=== PATIENT | male | born 1960 | race African-American/Black ===

== ENCOUNTER 2018-04-24 11:31 | Inpatient (IN) | payer OTHER ==
[~2018-04-24] VITALS: Ht 180.3 cm; Wt 68.5 kg
--- NOTE | 2018-04-24 11:40 | NUR ---
ED Nurse Note: Pt was brought in to ER by ambulance from [facility] due to severe headache 12/07. per EMS, pt has had REES for a week but this morning it got worse and they gave pt oxycodone 5mg by 0900 but was not effective so they called ambulance. pt aao x1-2, calm and cooperative. skin clean and intact but Rt upper head scar noted and per sister at bedside, it is surgical incision from brain surgery few months ago. per EMS, pt fell 3 months ago no LOC or injury noted.
[2018-04-24] MEDS ORDERED: Morphine Sulfate 4mg/ml Inj (IV USE ONLY) IVP ONE ×2 (11:45→14:45)
--- NOTE | 2018-04-24 12:00 | NUR ---
ED Nurse Note: Pt left department in stable condition to CT scan. meciations given and ivf on.
[2018-04-24 12:11] VITALS: BP 116/78
[2018-04-24 12:18] LABS: BASOPHILS % (AUTO) 2.5 % (0.0-2.0); EOSINOPHILS % (AUTO) 13.6 % (0.0-3.0); HEMATOCRIT 40.9 % (42.0-52.0); HEMOGLOBIN 13.9 G/DL (14.2-18.0); LYMPHOCYTES % (AUTO) 25.4 % (20.0-45.0); MEAN CORPUSCULAR VOLUME 97 FL (80-99); MONOCYTES % (AUTO) 17.5 % (1.0-10.0); PLATELET COUNT 432 K/UL (150-450); RED CELL DISTRIBUTION WIDTH 11.4 % (11.6-14.8); WHITE BLOOD COUNT 5.4 K/UL (4.8-10.8)
[2018-04-24 12:19] LABS: ANION GAP 8 mmol/L (5-15); BLOOD UREA NITROGEN 9 mg/dL (7-18); CALCIUM 9.3 MG/DL (8.5-10.1); CARBON DIOXIDE 28 MMOL/L (21-32); CHLORIDE 104 MMOL/L (98-107); CREATININE 0.9 MG/DL (0.55-1.30); SODIUM 140 MMOL/L (136-145)
--- NOTE | 2018-04-24 12:29 | NUR ---
ED Nurse Note: pt came back from CT in stable condition.
[2018-04-24 12:33] LABS: ALANINE AMINOTRANSFERASE 150 U/L (12-78); ALBUMIN 3.3 G/DL (3.4-5.0); ALBUMIN/GLOBULIN RATIO 0.8 (1.0-2.7); ALKALINE PHOSPHATASE 707 U/L (46-116); ASPARTATE AMINO TRANSFERASE 101 U/L (15-37); BILIRUBIN,TOTAL 0.6 MG/DL (0.2-1.0); CKMB < 0.5 NG/ML (0.0-3.6); CREATINE KINASE 112 U/L (26-308)
--- NOTE | 2018-04-24 12:47 | Diagnostic Imaging Report ---
Indication: Presenting with headache. History of craniotomy 03/18/2018 Technique: Contiguous 5 mm thick transaxial imaging of the head obtained in a Siemens Sensation [address] scanner. Soft tissue and bone windows generated. Automatic Exposure Control was utilized. Total Dose length Product (DLP): 1368.[address] Dose Index Volume (CTDIvol): 70.38 mGy Comparison: none Findings: Bifrontal craniotomy noted. Small metallic plate over the anterior midline covering a 1.5 cm focus of craniectomy. Just deep to the flap, there is mixed attenuation extra-axial blood within the surgical bed having a transaxial thickness of about 6 to 7 mm at its maximum. There is also an area of rounded low attenuation measuring about 2 cm within the anterior cranial fossa associated with the anterior interhemispheric fissure. This is likely the area of resection. Correlate with the surgical history. There is likely some degree of mild residual edema within the frontal lobes bilaterally. The basal cisterns appear normal. The ventricles appear symmetric. There is no evidence of hydrocephalus or acute intracranial bleed. IMPRESSION: Postsurgical changes associated with relatively recent bifrontal craniotomy likely resection of a mass in the area of the interhemispheric fissure. 6 mm thick mixed attenuation extra-axial blood noted within the surgical bed. Please correlate with the operative report and comparison with prior studies is strongly recommended. The CT scanner at [facility] is accredited by the [employer] and the scans are performed using dose optimization techniques as appropriate to a performed exam including Automatic Exposure control.
[2018-04-24] MEDS ORDERED: PEPCID AC20 M2 PO (14:06)
[2018-04-24] MEDS ORDERED: DILANTIN100 MG ORAL (14:06)
[2018-04-24] MEDS ORDERED: ROXICODONE5 MG ORAL (14:06)
[2018-04-24] MEDS ORDERED: ZOFRAN4 MG ORAL (14:06)
[2018-04-24] MEDS ORDERED: AMLODIPINE BESY10 MG ORAL (14:06)
[2018-04-24] MEDS ORDERED: KEPPRA500 M4 ORAL (14:06)
[2018-04-24] MEDS ORDERED: HYDRALAZINE HCL25 M1 ORAL (14:06)
[2018-04-24] MEDS ORDERED: NICOTINE PATCH1 EAC5 TD (14:06)
[2018-04-24] MEDS ORDERED: BENADRYL25 MG ORAL (14:06)
--- NOTE | 2018-04-24 14:06 | NUR ---
report given to patience caldwell patient is to be transferd to room 419-1
--- NOTE | 2018-04-24 14:27 | Consultation ---
History of Present Illness General Date patient seen: Apr 24, 2018 Chief Complaint: Headache Present Illness HPI 57 year old male with hx of brain tumor, s/p craniotomy presented to ER with intractable headache. Allergies: Coded Allergies: No Known Allergies (Unverified , 04/24/18) Medication History Scheduled Amlodipine Besylate* (Amlodipine Besylate*), 10 MG ORAL DAILY, (Reported) Famotidine (Pepcid Ac), 20 MG PO DAILY, (Reported) Hydralazine Hcl* (Hydralazine Hcl*), 25 MG ORAL EVERY 8 HOURS, (Reported) Levetiracetam (Keppra), 500 MG ORAL EVERY 12 HOURS, (Reported) Phenytoin Sodium Extended* (Dilantin*), 100 MG ORAL THREE TIMES A DAY, (Reported ) Scheduled PRN Diphenhydramine Hcl* (Benadryl*), 25 MG ORAL Q6H PRN for Itching, (Reported) Ondansetron (Zofran), 4 MG ORAL Q8H PRN for Nausea & Vomiting, (Reported) Oxycodone HCl (Oxycodone HCl), 5 MG ORAL Q6HR PRN for For Pain, (Reported) Miscellaneous Medications Nicotine (Nicotine Patch), 1 EACH TD, (Reported) Patient History Healthcare decision maker Resuscitation status Advanced Directive on File Past Medical/Surgical History Past Medical/Surgical History: (1) History of craniotomy Review of Systems All Other Systems: negative except mentioned in HPI Physical Exam General Appearance: WD/WN, no apparent distress Lines, tubes and drains: peripheral, PICC HEENT: normocephalic, atraumatic Neck: non-tender, normal alignment Respiratory/Chest: chest wall non-tender, lungs clear Breasts: no masses Cardiovascular/Chest: normal peripheral pulses Abdomen: normal bowel sounds, non tender Last 24 Hour Vital Signs Date Time Temp Pulse Resp B/P (MAP) Pulse Ox O2 Delivery O2 Flow Rate FiO2 04/24/18 14:07 98.2 78 16 120/70 98 Room Air 04/24/18 12:22 98.4 04/24/18 12:11 98.4 79 18 116/78 98 Room Air 04/24/18 11:33 98.4 80 18 115/76 94 Room Air Laboratory Tests Test 04/24/18 12:05 White Blood Count 5.4 K/UL (4.8-10.8) Red Blood Count 4.20 M/UL (4.70-6.10) L Hemoglobin 13.9 G/DL (14.2-18.0) L Hematocrit 40.9 % (42.0-52.0) L Mean Corpuscular Volume 97 FL (80-99) Mean Corpuscular Hemoglobin 33.0 PG (27.0-31.0) H Mean Corpuscular Hemoglobin Concent 33.9 G/DL (32.0-36.0) Red Cell Distribution Width 11.4 % (11.6-14.8) L Platelet Count 432 K/UL (150-450) Mean Platelet Volume 5.0 FL (6.5-10.1) L Neutrophils (%) (Auto) 41.0 % (45.0-75.0) L Lymphocytes (%) (Auto) 25.4 % (20.0-45.0) Monocytes (%) (Auto) 17.5 % (1.0-10.0) H Eosinophils (%) (Auto) 13.6 % (0.0-3.0) H Basophils (%) (Auto) 2.5 % (0.0-2.0) H Sodium Level 140 MMOL/L (136-145) Potassium Level 4.0 MMOL/L (3.5-5.1) Chloride Level 104 MMOL/L (98-107) Carbon Dioxide Level 28 MMOL/L (21-32) Anion Gap 8 mmol/L (5-15) Blood Urea Nitrogen 9 mg/dL (7-18) Creatinine 0.9 MG/DL (0.55-1.30) Estimat Glomerular Filtration Rate > 60 mL/min (>60) Glucose Level 98 MG/DL (74-106) Calcium Level 9.3 MG/DL (8.5-10.1) Total Bilirubin 0.6 MG/DL (0.2-1.0) Aspartate Amino Transf (AST/SGOT) 101 U/L (15-37) H Alanine Aminotransferase (ALT/SGPT) 150 U/L (12-78) H Alkaline Phosphatase 707 U/L (46-116) H Total Creatine Kinase 112 U/L (26-308) Creatine Kinase MB < 0.5 NG/ML (0.0-3.6) Creatine Kinase MB Relative Index Troponin I 0.000 ng/mL (0.000-0.056) Total Protein 7.6 G/DL (6.4-8.2) Albumin 3.3 G/DL (3.4-5.0) L Globulin 4.3 g/dL Albumin/Globulin Ratio 0.8 (1.0-2.7) L Height (Feet): 5 Height (Inches): 11.00 Weight (Pounds): 180 Assessment/Plan Problem List: (1) History of craniotomy ICD Codes: Z98.890 - Other specified postprocedural states SNOMED: 98624364, 878100732 (2) Intractable pain ICD Codes: R52 - Pain, unspecified SNOMED: 23182694 (3) Head ache ICD Codes: R51 - Headache SNOMED: 78204229 (4) Brain tumor ICD Codes: D49.6 - Neoplasm of unspecified behavior of brain SNOMED: 254428508 Assessment/Plan symptomatic treatment neuro and pain management dvt prophylaxis Millicent Armas MD Apr 24, 2018 14:27
[2018-04-24 16:00] VITALS: BP 102/59
--- NOTE | 2018-04-24 16:15 | History and Physical Report ---
DATE OF ADMISSION: 04/24/2018 TIME SEEN: On 04/24/2018 at 2 p.m. CONSULTANTS: 1. Korey Parada M.D. 2. Millicent Armas M.D. 3. Jaylin Delarosa M.D. 4. Sean Bautista M.D. CHIEF COMPLAINT: Severe headache, weakness. BRIEF HISTORY: This is a 57-year-old male from [facility], who in February had brain surgery. The patient started experiencing about two days ago starting with severe headaches and weakness and he was getting worse and was sent to [place] last night or this morning for evaluation. Currently, slightly anxious, in the ER gurney and complaining of severe headache of 9/10 and awaiting a bed in the hospital. PAST MEDICAL HISTORY: Includes headache, possible seizure, and hypertension. PAST SURGICAL HISTORY: Recent brain surgery in February. ALLERGIES: Denies. SOCIAL HISTORY: Positive smoke. Positive alcohol. No intravenous drug abuse. FAMILY HISTORY: Noncontributory. PHYSICAL EXAMINATION: GENERAL: Anxious in bed, oriented x2, in no acute distress. VITAL SIGNS: Temperature is 98 degrees, pulse 78, respirations 16, and blood pressure 120/70. CARDIOVASCULAR: No murmur. LUNGS: Distant and clear. ABDOMEN: Bowel sounds positive. Nontender. Nondistended. EXTREMITIES: No cyanosis, clubbing, or edema. NEUROLOGIC: The patient moves all extremities. Slight weakness in extremities. LABORATORY AND DIAGNOSTIC DATA: Labs at this time show hemoglobin 13.9, otherwise CBC is normal. BMP shows AST 101, ALT 150, alkaline phosphatase 707. Troponin 0.00. Albumin 3.3. MEDICATIONS: Include morphine, Zofran, IV fluids. ASSESSMENT: Severe headache, status post surgery, hypertension, malnutrition, possible seizure history, weakness, and elevated LFT. PLAN: 1. Continue previous medications. 2. Pain control. 3. IV fluids. 4. Dietary followup. 5. CBC and BMP in the morning. 6. Dr. Kimball in addition to evaluate for elevated LFT. 7. We will continue to follow this patient. Neri Cat D.O. DR: Ivan JOB#: [id number] CC:
--- NOTE | 2018-04-24 16:31 | GI Initial Consult Note ---
History of Present Illness General Date patient seen: Apr 24, 2018 Time patient seen: 16:15 Reason for Hospitalization: Headache Referring physician: VISHNU DAVID Reason for Consultation: Abnormal LFTs Present Illness HPI This is a 57-year-old male currently a senior care resident from [facility] who presents with persistent headache for over approximately 1 week. The patient has history of a brain tumor surgery back in February 2018 at [facility]. Noted history of epilepsy, obesity, history of hematuria, GERD without esophagitis and tobacco use. GI consulted for transaminitis and elevated alkaline phosphatase. Labs reviewed; patient presents with normocytic anemia and elevated LFTs. Unknown history of endoscopically and colonoscopy at this time. Home Meds Reported Medications Ondansetron (Zofran) 4 Mg Tablet, 4 MG ORAL Q8H PRN for Nausea & Vomiting, #10 TAB 0 Refills 04/24/18 Diphenhydramine Hcl* (BENADRYL*) 25 Mg Capsule, 25 MG ORAL Q6H PRN for Itching, CAP 04/24/18 Oxycodone HCl (Oxycodone HCl) 5 Mg Tablet, 5 MG ORAL Q6HR PRN for For Pain, TAB 0 Refills 04/24/18 Phenytoin Sodium Extended* (DILANTIN*) 100 Mg Capsule, 100 MG ORAL THREE TIMES A DAY, #90 CAP 0 Refills 04/24/18 Nicotine (NICOTINE PATCH) 1 Each Patch.dysq, 1 EACH TD, PATCH 04/24/18 Levetiracetam (KEPPRA) 500 Mg Tablet, 500 MG ORAL EVERY 12 HOURS, #60 TAB 0 Refills 04/24/18 Hydralazine Hcl* (HYDRALAZINE HCL*) 25 Mg Tablet, 25 MG ORAL EVERY 8 HOURS, TAB 0 Refills 04/24/18 Famotidine (PEPCID AC) 20 Mg Tablet, 20 MG PO DAILY, TAB 04/24/18 Amlodipine Besylate* (AMLODIPINE BESYLATE*) 10 Mg Tablet, 10 MG ORAL DAILY, TAB 04/24/18 Med list reviewed/reconciled: Yes Allergies: Coded Allergies: No Known Allergies (Unverified , 04/24/18) Patient History History Provided By: Patient, Medical Record Social History: Denies: smoking, alcohol use, drug use, other Review of Systems All Other Systems: negative except mentioned in HPI Physical Exam Vital Signs Date Time Temp Pulse Resp B/P (MAP) Pulse Ox O2 Delivery O2 Flow Rate FiO2 04/24/18 11:33 98.4 80 18 115/76 94 Room Air Sp02 EP Interpretation: reviewed, normal Labs Laboratory Tests Test 04/24/18 12:00 04/24/18 12:05 Lipase 99 U/L (73-393) White Blood Count 5.4 K/UL (4.8-10.8) Red Blood Count 4.20 M/UL (4.70-6.10) L Hemoglobin 13.9 G/DL (14.2-18.0) L Hematocrit 40.9 % (42.0-52.0) L Mean Corpuscular Volume 97 FL (80-99) Mean Corpuscular Hemoglobin 33.0 PG (27.0-31.0) H Mean Corpuscular Hemoglobin Concent 33.9 G/DL (32.0-36.0) Red Cell Distribution Width 11.4 % (11.6-14.8) L Platelet Count 432 K/UL (150-450) Mean Platelet Volume 5.0 FL (6.5-10.1) L Neutrophils (%) (Auto) 41.0 % (45.0-75.0) L Lymphocytes (%) (Auto) 25.4 % (20.0-45.0) Monocytes (%) (Auto) 17.5 % (1.0-10.0) H Eosinophils (%) (Auto) 13.6 % (0.0-3.0) H Basophils (%) (Auto) 2.5 % (0.0-2.0) H Sodium Level 140 MMOL/L (136-145) Potassium Level 4.0 MMOL/L (3.5-5.1) Chloride Level 104 MMOL/L (98-107) Carbon Dioxide Level 28 MMOL/L (21-32) Anion Gap 8 mmol/L (5-15) Blood Urea Nitrogen 9 mg/dL (7-18) Creatinine 0.9 MG/DL (0.55-1.30) Estimat Glomerular Filtration Rate > 60 mL/min (>60) Glucose Level 98 MG/DL (74-106) Calcium Level 9.3 MG/DL (8.5-10.1) Total Bilirubin 0.6 MG/DL (0.2-1.0) Aspartate Amino Transf (AST/SGOT) 101 U/L (15-37) H Alanine Aminotransferase (ALT/SGPT) 150 U/L (12-78) H Alkaline Phosphatase 707 U/L (46-116) H Total Creatine Kinase 112 U/L (26-308) Creatine Kinase MB < 0.5 NG/ML (0.0-3.6) Creatine Kinase MB Relative Index Troponin I 0.000 ng/mL (0.000-0.056) Total Protein 7.6 G/DL (6.4-8.2) Albumin 3.3 G/DL (3.4-5.0) L Globulin 4.3 g/dL Albumin/Globulin Ratio 0.8 (1.0-2.7) L General Appearance: well appearing, no apparent distress, alert Head: normocephalic EENT: PERRL/EOMI, normal ENT inspection Neck: supple Respiratory: normal breath sounds, no respiratory distress Cardiovascular: normal rate Gastrointestinal: normal inspection, non tender, soft, normal bowel sounds, non -distended Rectal: deferred Genitourinary: deferred Musculoskeletal: normal inspection, back normal Neurologic: normal inspection, alert, oriented x3, responsive Psychiatric: normal inspection, judgement/insight normal, memory normal Skin: normal inspection, normal color, no rash, warm/dry, palpation normal, well hydrated Lymphatic: normal inspection, no adenopathy GI: Plan Problems: (1) Brain tumor (2) Transaminitis (3) Elevated alkaline phosphatase level (4) Anemia Plan Head CT reviewed lipase normal Obtain abdominal ultrasound, okay to advance diet after imaging study Hepatitis panel ordered anemia work up OB stool r/o GI bleed monitor H&H, prn transfusions bowel regime ppi fu labs, trend LFTs We will consider endoscopy colonoscopy pending workup Discussed with Dr. Kimball. Thank you for this patient referral, we will follow. The patient was seen and examined at bedside and all new and available data was reviewed in the patients chart. I agree with the above findings, impression and plan. (Patient seen earlier today. Signature stamp does not reflect patient encounter time.). - MD Nithya Fong,[facility] OFFSET PRINTER Apr 24, 2018 16:31
--- NOTE | 2018-04-24 16:47 | Diagnostic Imaging Report ---
Indication:Abdominal pain Technique: Grayscale and duplex Doppler imaging of the abdomen performed. Comparison: None Findings: The liver is unremarkable. The gallbladder is unremarkable. The demonstrated part of the pancreas, aorta and IVC show no abnormalities. Both kidneys appear unremarkable. The spleen is normal in size. There is no biliary ductal dilatation identified. Doppler evaluation of the main portal vein shows patency. There is no ascites. No hydronephrosis seen. CBD is 3 mm. Impression: No acute findings.
[2018-04-24] MEDS ORDERED: Zolpidem 5mg tab ORAL PRN (17:15)
[2018-04-24] MEDS ORDERED: LORazepam Inj 2mg/ml 1ml IV PRN (17:15)
[2018-04-24] MEDS ORDERED: Miralax 17gm pkt ORAL PRN (17:15)
[2018-04-24] MEDS ORDERED: Mylanta II UD 30ml ORAL PRN (17:15)
--- NOTE | 2018-04-24 17:51 | NUR ---
CASE MANAGEMENT: INITIAL REVIEW 04/24/2018 57 YO Torsten PENA FROM [facility] CONV CC: HEADACHE PMHx: BRAIN TUMOR SI:DEHYDRATION. INTRACTABLE PAIN. T 98.2 HR 78 RR 16 B/P 120/70 SATS 98% ON RA AST 101 ALT 150 ALP 707 IS: MORPHINE IV X1 ZOFRAN IV X1 NS BOLUS X1 CT HEAD (IMPRESSION: Postsurgical changes associated with relatively recent bifrontal craniotomy likely resection of a mass in the area of the interhemispheric fissure. 6 mm thick mixed attenuation extra-axial blood noted within the surgical bed. Please correlate with the operative report and comparison with prior studies is strongly recommended) PATIENT ADMITTED TO MED/SURG 04/24/2018 @ 1310 DCP: PATIENT TO BE DISCHARGED TO SNF ONCE MEDICALLY CLEARED. PLAN OF CARE: NEURO EVAL Addendum: 04/24/18 at 2004 by Mishel Guy CM INTERQUAL MET
[2018-04-24] MEDS: Phenytoin 100mg cap ORAL SCH (18:09)
--- NOTE | 2018-04-24 19:26 | NUR ---
HAND-OFF: Report given to [facility] GL[facility].
--- NOTE | 2018-04-24 19:30 | NUR ---
NURSE NOTES: patient received. patient in no acute distress at this time. patient complains of no pain at this time. patient awake and alert x4. IV intact and asymptomatic. call light with reach. bed alarm on. bed in lowest position and locked. Urinal at bedside. seizure precautions taken. rail of bed padded. will continue to monitor.
[2018-04-24 20:00] VITALS: BP 131/76
[2018-04-24] MEDS: HydrALAZINE 25mg tab ORAL SCH (21:06)
[2018-04-24] MEDS: Heparin 5000 units/ml inj SUBQ SCH (21:08)
[2018-04-24] MEDS: Morphine Sulfate 2mg/ml Inj(IV/IM USE ONLY) IVP PRN (22:41)
[2018-04-25] VITALS: BP 128/83
[2018-04-25 04:00] VITALS: BP 120/73
[2018-04-25] MEDS: Morphine Sulfate 2mg/ml Inj(IV/IM USE ONLY) IVP PRN ×3 (05:46→14:32)
[2018-04-25] MEDS: HydrALAZINE 25mg tab ORAL SCH ×3 (05:46→21:29)
--- NOTE | 2018-04-25 07:24 | NUR ---
HAND-OFF: Report given to meret. caldwell.
--- NOTE | 2018-04-25 07:33 | NUR ---
NURSE NOTES: Received patient from [facility] GL[facility], patient is sleeping in bed, no distress noted, bed is locked and in lowest position, call light within reach, will continue to monitor.
[2018-04-25 07:38] LABS: BASOPHILS % (AUTO) 1.2 % (0.0-2.0); EOSINOPHILS % (AUTO) 14.5 % (0.0-3.0); HEMATOCRIT 37.9 % (42.0-52.0); HEMOGLOBIN 12.8 G/DL (14.2-18.0); LYMPHOCYTES % (AUTO) 22.9 % (20.0-45.0); MEAN CORPUSCULAR VOLUME 98 FL (80-99); MONOCYTES % (AUTO) 18.1 % (1.0-10.0); NEUTROPHILS % (AUTO) 43.4 % (45.0-75.0); PLATELET COUNT 380 K/UL (150-450); RED BLOOD COUNT 3.87 M/UL (4.70-6.10); RED CELL DISTRIBUTION WIDTH 11.1 % (11.6-14.8); WHITE BLOOD COUNT 5.3 K/UL (4.8-10.8)
--- NOTE | 2018-04-25 07:52 | Emergency Room Report ---
History of Present Illness General Chief Complaint: Headache Source: Patient, Medical Record Present Illness HPI Patient presents with complaints of headache Patient is at a nursing facility reports that the patient has had recent brain tumor removal This was done at [facility] Denies any chest pain or shortness of breath denies any vomiting denies any back or flank pain Patient complains of frontal forehead discomfort denies any neck pain or photophobia Allergies: Coded Allergies: No Known Allergies (Unverified , 04/24/18) Patient History Past Medical History: see triage record Pertinent Family History: none Reviewed Nursing Documentation: PMH: Agreed; PSxH: Agreed Nursing Documentation-PMH Past Medical History: No History, Except For Hx Cardiac Problems: No Hx Cancer: No Hx Gastrointestinal Problems: No 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 Hx Seizures: Yes Hx Headaches: Yes - since childhood Hx Neurologic Surgery: Yes - 02/2018 for brain tumor Review of Systems All Other Systems: negative except mentioned in HPI Physical Exam Vital Signs Date Time Temp Pulse Resp B/P (MAP) Pulse Ox O2 Delivery O2 Flow Rate FiO2 04/24/18 11:33 98.4 80 18 115/76 94 Room Air Sp02 EP Interpretation: reviewed, normal General Appearance: well appearing, no apparent distress Head: atraumatic, other - Previous surgery Eyes: bilateral eye PERRL, bilateral eye EOMI ENT: hearing grossly normal, normal pharynx, TMs + canals normal, uvula midline Neck: full range of motion, supple, no meningismus, no bony tend Respiratory: lungs clear, normal breath sounds, no rhonchi, no respiratory distress, no retraction, no accessory muscle use Cardiovascular #1: normal peripheral pulses, regular rate, rhythm, no edema, no gallop, no JVD, no murmur Gastrointestinal: normal bowel sounds, non tender, soft, no mass, no organomegaly, non-distended, no guarding, no hernia, no pulsatile mass, no rebound Genitourinary: no CVA tenderness Musculoskeletal: other - Equal vibration engineer bilateral upper extremity Neurologic: oriented x3, responsive, sensory intact, other - Somewhat sluggish Psychiatric: mood/affect normal Skin: normal color, no rash, warm/dry, palpation normal Lymphatic: normal inspection, no adenopathy Medical Decision Making Diagnostic Impression: Primary Impression: INTERACTABLE HEADACHE Additional Impression: Brain tumor ER Course Patient is complex with multiple differentials and consideration CT head reveals some findings likely consistent with recent procedure Patient's blood work is at baseline levels requiring further pain medication Patient also showing some signs of dehydration and requires further inpatient care Labs Test 04/24/18 12:00 04/24/18 12:05 04/25/18 05:15 Lipase 99 U/L (73-393) White Blood Count 5.4 K/UL (4.8-10.8) 5.3 K/UL (4.8-10.8) Red Blood Count 4.20 M/UL (4.70-6.10) 3.87 M/UL (4.70-6.10) Hemoglobin 13.9 G/DL (14.2-18.0) 12.8 G/DL (14.2-18.0) Hematocrit 40.9 % (42.0-52.0) 37.9 % (42.0-52.0) Mean Corpuscular Volume 97 FL (80-99) 98 FL (80-99) Mean Corpuscular Hemoglobin 33.0 PG (27.0-31.0) 33.1 PG (27.0-31.0) Mean Corpuscular Hemoglobin Concent 33.9 G/DL (32.0-36.0) 33.9 G/DL (32.0-36.0) Red Cell Distribution Width 11.4 % (11.6-14.8) 11.1 % (11.6-14.8) Platelet Count 432 K/UL (150-450) 380 K/UL (150-450) Mean Platelet Volume 5.0 FL (6.5-10.1) 4.9 FL (6.5-10.1) Neutrophils (%) (Auto) 41.0 % (45.0-75.0) 43.4 % (45.0-75.0) Lymphocytes (%) (Auto) 25.4 % (20.0-45.0) 22.9 % (20.0-45.0) Monocytes (%) (Auto) 17.5 % (1.0-10.0) 18.1 % (1.0-10.0) Eosinophils (%) (Auto) 13.6 % (0.0-3.0) 14.5 % (0.0-3.0) Basophils (%) (Auto) 2.5 % (0.0-2.0) 1.2 % (0.0-2.0) Sodium Level 140 MMOL/L (136-145) Potassium Level 4.0 MMOL/L (3.5-5.1) Chloride Level 104 MMOL/L (98-107) Carbon Dioxide Level 28 MMOL/L (21-32) Anion Gap 8 mmol/L (5-15) Blood Urea Nitrogen 9 mg/dL (7-18) Creatinine 0.9 MG/DL (0.55-1.30) Estimat Glomerular Filtration Rate > 60 mL/min (>60) Glucose Level 98 MG/DL (74-106) Calcium Level 9.3 MG/DL (8.5-10.1) Total Bilirubin 0.6 MG/DL (0.2-1.0) Aspartate Amino Transf (AST/SGOT) 101 U/L (15-37) Alanine Aminotransferase (ALT/SGPT) 150 U/L (12-78) Alkaline Phosphatase 707 U/L (46-116) Total Creatine Kinase 112 U/L (26-308) Creatine Kinase MB < 0.5 NG/ML (0.0-3.6) Creatine Kinase MB Relative Index Troponin I 0.000 ng/mL (0.000-0.056) Total Protein 7.6 G/DL (6.4-8.2) Albumin 3.3 G/DL (3.4-5.0) Globulin 4.3 g/dL Albumin/Globulin Ratio 0.8 (1.0-2.7) Prothrombin Time 10.9 SEC (9.30-11.50) Prothromb Time International Ratio 1.0 (0.9-1.1) Activated Partial Thromboplast Time 31 SEC (23-33) Rhythm Strip Diag. Results EP Interpretation: yes Rate: 60 Rhythm: NSR, no PVC's, no ectopy CT/MRI/US Diagnostic Results CT/MRI/US Diagnostic Results : Impression CT head :IMPRESSION: Postsurgical changes associated with relatively recent bifrontal craniotomy likely resection of a mass in the area of the interhemispheric fissure. 6 mm thick mixed attenuation extra-axial blood noted within the surgical bed. Please correlate with the operative report and comparison with prior studies is strongly recommended. Last Vital Signs Date Time Temp Pulse Resp B/P (MAP) Pulse Ox O2 Delivery O2 Flow Rate FiO2 04/25/18 05:46 120/73 04/25/18 04:00 99.3 99 18 97 04/24/18 21:00 Room Air Status: improved Disposition: ADMITTED INPATIENT Condition: Serious Referrals: Neri Cat DO (PCP) Iram Rojas DO Apr 25, 2018 07:52
[2018-04-25 07:55] LABS: % IRON SATURATION 25 % (15-50); ALANINE AMINOTRANSFERASE 104 U/L (12-78); ALBUMIN 3.1 G/DL (3.4-5.0); ALBUMIN/GLOBULIN RATIO 0.8 (1.0-2.7); ALKALINE PHOSPHATASE 634 U/L (46-116); ANION GAP 13 mmol/L (5-15); ASPARTATE AMINO TRANSFERASE 46 U/L (15-37); BILIRUBIN,TOTAL 0.8 MG/DL (0.2-1.0); BLOOD UREA NITROGEN 9 mg/dL (7-18); CARBON DIOXIDE 24 MMOL/L (21-32); CHLORIDE 102 MMOL/L (98-107); CREATININE 0.9 MG/DL (0.55-1.30); FERRITIN 523 NG/ML (8-388); IRON 45 ug/dL (50-175); POTASSIUM 3.8 MMOL/L (3.5-5.1); SODIUM 138 MMOL/L (136-145); TOTAL IRON BINDING CAPACITY 179 ug/dL (250-450)
[2018-04-25 08:00] VITALS: BP 104/63
[2018-04-25] MEDS: Phenytoin 100mg cap ORAL SCH ×3 (09:52→17:59)
[2018-04-25] MEDS: Heparin 5000 units/ml inj SUBQ SCH ×2 (09:57→21:30)
[2018-04-25 12:00] VITALS: BP 117/86
--- NOTE | 2018-04-25 12:49 | NUR ---
REHAB MED PT NOTE CONSULT RECEIVED, LISA COMPLTED, PATIENT WILL BENEFIT FROM SKILLED PT DURING STAY FOR RETURN TO [facility]. RECOMMEND SNF AT [place]. PLAN OF CARE INITIATED. ROBSON MORALES PT DPT Addendum: 04/25/18 at 1249 by ROBSON MORALES PT Amended: Links added.
--- NOTE | 2018-04-25 13:02 | General Progress Note ---
Assessment/Plan Problem List: (1) Head ache ICD Codes: R51 - Headache SNOMED: 44322023 (2) Weak ICD Codes: R53.1 - Weakness SNOMED: 92560534 (3) HTN (hypertension) ICD Codes: I10 - Essential (primary) hypertension SNOMED: 46458275 (4) Malnutrition ICD Codes: E46 - Unspecified protein-calorie malnutrition SNOMED: 95640851 (5) Epilepsy ICD Codes: G40.909 - Epilepsy, unspecified, not intractable, without status epilepticus SNOMED: 64138772 (6) Intractable pain ICD Codes: R52 - Pain, unspecified SNOMED: 04172471 Status: unchanged Assessment/Plan pt siet pain control neuro psyc eval cbc bmp am Subjective Constitutional: Reports: weakness Allergies: Coded Allergies: No Known Allergies (Unverified , 04/24/18) All Systems: reviewed and negative except above Subjective sl confused, c/o russ Objective Last 24 Hour Vital Signs Date Time Temp Pulse Resp B/P (MAP) Pulse Ox O2 Delivery O2 Flow Rate FiO2 04/25/18 12:00 98.3 79 19 117/86 (96) 97 04/25/18 10:21 98.6 04/25/18 09:45 76 104/63 04/25/18 08:45 Room Air 04/25/18 08:00 98.6 76 18 104/63 (77) 95 04/25/18 05:46 120/73 04/25/18 04:00 99.3 99 18 120/73 (89) 97 04/25/18 00:00 99.5 95 19 128/83 (98) 99 04/24/18 21:06 102/59 04/24/18 21:00 Room Air 04/24/18 20:00 98.9 95 18 131/76 (94) 99 04/24/18 16:00 Room Air 04/24/18 16:00 98.2 85 18 102/59 (73) 99 04/24/18 14:07 98.2 78 16 120/70 98 Room Air Intake and Output 04/24/18 04/25/18 19:00 07:00 Intake Total 1060 ml 65 ml Balance 1060 ml 65 ml Intake Oral 60 ml 65 ml IV Total 1000 ml # Voids 3 Laboratory Tests 04/25/18 05:15: White Blood Count 5.3, Red Blood Count 3.87L, Hemoglobin 12.8L, Hematocrit 37.9L , Mean Corpuscular Volume 98, Mean Corpuscular Hemoglobin 33.1H, Mean Corpuscular Hemoglobin Concent 33.9, Red Cell Distribution Width 11.1L, Platelet Count 380, Mean Platelet Volume 4.9L, Neutrophils (%) (Auto) 43.4L, Lymphocytes (%) (Auto) 22.9, Monocytes (%) (Auto) 18.1H, Eosinophils (%) (Auto) 14.5H, Basophils (%) (Auto) 1.2, Reticulocyte Count [Pending], Prothrombin Time 10.9, Prothromb Time International Ratio 1.0, Activated Partial Thromboplast Time 31, Sodium Level 138, Potassium Level 3.8, Chloride Level 102, Carbon Dioxide Level 24, Anion Gap 13, Blood Urea Nitrogen 9, Creatinine 0.9, Estimat Glomerular Filtration Rate > 60, Glucose Level 79, Calcium Level 9.0, Iron Level 45L, Total Iron Binding Capacity 179L, Percent Iron Saturation 25, Unsaturated Iron Binding 134, Ferritin 523H, Total Bilirubin 0.8, Aspartate Amino Transf (AST/SGOT) 46H, Alanine Aminotransferase (ALT/SGPT) 104H, Alkaline Phosphatase 634H, Total Protein 7.2, Albumin 3.1L, Globulin 4.1, Albumin/ Globulin Ratio 0.8L, Carcinoembryonic Antigen [Pending], Vitamin B12 Level 1016H , Folate 5.8L, Thyroid Stimulating Hormone (TSH) 1.207, Free Thyroxine 0.77, Hepatitis A IgM Antibody [Pending], Hepatitis B Surface Antigen [Pending], Hepatitis B Core IgM Antibody [Pending], Hepatitis C Antibody [Pending] Height (Feet): 5 Height (Inches): 11.00 Weight (Pounds): 180 General Appearance: lethargic, confused EENT: normal ENT inspection Neck: normal alignment Cardiovascular: normal peripheral pulses, normal rate, regular rhythm Respiratory/Chest: chest wall non-tender, lungs clear, normal breath sounds Abdomen: normal bowel sounds, non tender, soft Extremities: normal inspection Edema: no edema noted Arm (L), no edema noted Arm (R), no edema noted Leg (L), no edema noted Leg (R), no edema noted Pedal (L), no edema noted Pedal (R), no edema noted Generalized Neurologic: motor weakness Skin: normal pigmentation, warm/dry Neri Cat DO Apr 25, 2018 13:02
--- NOTE | 2018-04-25 13:20 | GI Progress Note ---
Assessment/Plan Problems: (1) Weak ICD Codes: R53.1 - Weakness SNOMED: 29865613 (2) Malnutrition ICD Codes: E46 - Unspecified protein-calorie malnutrition SNOMED: 72599206 (3) Brain tumor ICD Codes: D49.6 - Neoplasm of unspecified behavior of brain SNOMED: 376423539 (4) Transaminitis ICD Codes: R74.0 - Nonspecific elevation of levels of transaminase and lactic acid dehydrogenase [LDH] SNOMED: 177517005, 909063431 (5) Anemia ICD Codes: D64.9 - Anemia, unspecified SNOMED: 140591299 (6) Intractable pain ICD Codes: R52 - Pain, unspecified SNOMED: 88522250 Status: stable Status Narrative Discussed with Dr. Kimball. Assessment/Plan Head CT reviewed lipase normal abdominal US reviewed, negative adv diet follow Hepatitis panel OB stool r/o GI bleed monitor H&H, prn transfusions bowel regime ppi fu labs, trend LFTs We will consider endoscopy colonoscopy pending workup The patient was seen and examined at bedside and all new and available data was reviewed in the patients chart. I agree with the above findings, impression and plan. (Patient seen earlier today. Signature stamp does not reflect patient encounter time.). - Barry Kimball MD Subjective Gastrointestinal/Abdominal: Reports: no symptoms Objective Last 24 Hour Vital Signs Date Time Temp Pulse Resp B/P (MAP) Pulse Ox O2 Delivery O2 Flow Rate FiO2 04/25/18 12:00 98.3 79 19 117/86 (96) 97 04/25/18 10:21 98.6 04/25/18 09:45 76 104/63 04/25/18 08:45 Room Air 04/25/18 08:00 98.6 76 18 104/63 (77) 95 04/25/18 05:46 120/73 04/25/18 04:00 99.3 99 18 120/73 (89) 97 04/25/18 00:00 99.5 95 19 128/83 (98) 99 04/24/18 21:06 102/59 04/24/18 21:00 Room Air 04/24/18 20:00 98.9 95 18 131/76 (94) 99 04/24/18 16:00 Room Air 04/24/18 16:00 98.2 85 18 102/59 (73) 99 04/24/18 14:07 98.2 78 16 120/70 98 Room Air Intake and Output 04/24/18 04/25/18 19:00 07:00 Intake Total 1060 ml 65 ml Balance 1060 ml 65 ml Intake Oral 60 ml 65 ml IV Total 1000 ml # Voids 3 Laboratory Tests Test 04/25/18 05:15 White Blood Count 5.3 K/UL (4.8-10.8) Red Blood Count 3.87 M/UL (4.70-6.10) L Hemoglobin 12.8 G/DL (14.2-18.0) L Hematocrit 37.9 % (42.0-52.0) L Mean Corpuscular Volume 98 FL (80-99) Mean Corpuscular Hemoglobin 33.1 PG (27.0-31.0) H Mean Corpuscular Hemoglobin Concent 33.9 G/DL (32.0-36.0) Red Cell Distribution Width 11.1 % (11.6-14.8) L Platelet Count 380 K/UL (150-450) Mean Platelet Volume 4.9 FL (6.5-10.1) L Neutrophils (%) (Auto) 43.4 % (45.0-75.0) L Lymphocytes (%) (Auto) 22.9 % (20.0-45.0) Monocytes (%) (Auto) 18.1 % (1.0-10.0) H Eosinophils (%) (Auto) 14.5 % (0.0-3.0) H Basophils (%) (Auto) 1.2 % (0.0-2.0) Reticulocyte Count Pending Prothrombin Time 10.9 SEC (9.30-11.50) Prothromb Time International Ratio 1.0 (0.9-1.1) Activated Partial Thromboplast Time 31 SEC (23-33) Sodium Level 138 MMOL/L (136-145) Potassium Level 3.8 MMOL/L (3.5-5.1) Chloride Level 102 MMOL/L (98-107) Carbon Dioxide Level 24 MMOL/L (21-32) Anion Gap 13 mmol/L (5-15) Blood Urea Nitrogen 9 mg/dL (7-18) Creatinine 0.9 MG/DL (0.55-1.30) Estimat Glomerular Filtration Rate > 60 mL/min (>60) Glucose Level 79 MG/DL (74-106) Calcium Level 9.0 MG/DL (8.5-10.1) Iron Level 45 ug/dL (50-175) L Total Iron Binding Capacity 179 ug/dL (250-450) L Percent Iron Saturation 25 % (15-50) Unsaturated Iron Binding 134 ug/dL (112-346) Ferritin 523 NG/ML (8-388) H Total Bilirubin 0.8 MG/DL (0.2-1.0) Aspartate Amino Transf (AST/SGOT) 46 U/L (15-37) H Alanine Aminotransferase (ALT/SGPT) 104 U/L (12-78) H Alkaline Phosphatase 634 U/L (46-116) H Total Protein 7.2 G/DL (6.4-8.2) Albumin 3.1 G/DL (3.4-5.0) L Globulin 4.1 g/dL Albumin/Globulin Ratio 0.8 (1.0-2.7) L Carcinoembryonic Antigen Pending Vitamin B12 Level 1016 PG/ML (193-986) H Folate 5.8 NG/ML (8.6-58.9) L Thyroid Stimulating Hormone (TSH) 1.207 uiU/mL (0.358-3.740) Free Thyroxine 0.77 NG/DL (0.76-1.46) Hepatitis A IgM Antibody Pending Hepatitis B Surface Antigen Pending Hepatitis B Core IgM Antibody Pending Hepatitis C Antibody Pending Height (Feet): 5 Height (Inches): 11.00 Weight (Pounds): 180 General Appearance: WD/WN, no apparent distress, alert Cardiovascular: normal rate Respiratory/Chest: normal breath sounds, no respiratory distress Abdominal Exam: normal bowel sounds, non tender, soft Extremities: non-tender Bhupendra Barriga NP Apr 25, 2018 13:20
--- NOTE | 2018-04-25 14:43 | Pulmonology Progress Note ---
Assessment/Plan Problems: (1) Epilepsy (2) Intractable pain (3) Brain tumor Assessment/Plan symptomatic treatment neuro evaluation pain management Subjective Allergies: Coded Allergies: No Known Allergies (Unverified , 04/24/18) Objective Last 24 Hour Vital Signs Date Time Temp Pulse Resp B/P (MAP) Pulse Ox O2 Delivery O2 Flow Rate FiO2 04/25/18 14:00 117/86 04/25/18 12:00 98.3 79 19 117/86 (96) 97 04/25/18 10:21 98.6 04/25/18 09:45 76 104/63 04/25/18 08:45 Room Air 04/25/18 08:00 98.6 76 18 104/63 (77) 95 04/25/18 05:46 120/73 04/25/18 04:00 99.3 99 18 120/73 (89) 97 04/25/18 00:00 99.5 95 19 128/83 (98) 99 04/24/18 21:06 102/59 04/24/18 21:00 Room Air 04/24/18 20:00 98.9 95 18 131/76 (94) 99 04/24/18 16:00 Room Air 04/24/18 16:00 98.2 85 18 102/59 (73) 99 Intake and Output 04/24/18 04/25/18 18:59 06:59 Intake Total 1060 ml 65 ml Balance 1060 ml 65 ml Intake Oral 60 ml 65 ml IV Total 1000 ml # Voids 3 Objective General Appearance: WD/WN HEENT: normocephalic Respiratory/Chest: chest wall non-tender, lungs clear, normal breath sounds Breasts: no masses Cardiovascular: normal peripheral pulses, normal rate Abdomen: normal bowel sounds, soft, non tender Extremities: no cyanosis Skin: no rash General Appearance: WD/WN Laboratory Tests 04/25/18 05:15: White Blood Count 5.3, Red Blood Count 3.87L, Hemoglobin 12.8L, Hematocrit 37.9L , Mean Corpuscular Volume 98, Mean Corpuscular Hemoglobin 33.1H, Mean Corpuscular Hemoglobin Concent 33.9, Red Cell Distribution Width 11.1L, Platelet Count 380, Mean Platelet Volume 4.9L, Neutrophils (%) (Auto) 43.4L, Lymphocytes (%) (Auto) 22.9, Monocytes (%) (Auto) 18.1H, Eosinophils (%) (Auto) 14.5H, Basophils (%) (Auto) 1.2, Reticulocyte Count 0.8, Prothrombin Time 10.9, Prothromb Time International Ratio 1.0, Activated Partial Thromboplast Time 31, Sodium Level 138, Potassium Level 3.8, Chloride Level 102, Carbon Dioxide Level 24, Anion Gap 13, Blood Urea Nitrogen 9, Creatinine 0.9, Estimat Glomerular Filtration Rate > 60, Glucose Level 79, Calcium Level 9.0, Iron Level 45L, Total Iron Binding Capacity 179L, Percent Iron Saturation 25, Unsaturated Iron Binding 134, Ferritin 523H, Total Bilirubin 0.8, Aspartate Amino Transf (AST/ SGOT) 46H, Alanine Aminotransferase (ALT/SGPT) 104H, Alkaline Phosphatase 634H, Total Protein 7.2, Albumin 3.1L, Globulin 4.1, Albumin/Globulin Ratio 0.8L, Carcinoembryonic Antigen [Pending], Vitamin B12 Level 1016H, Folate 5.8L, Thyroid Stimulating Hormone (TSH) 1.207, Free Thyroxine 0.77, Hepatitis A IgM Antibody [Pending], Hepatitis B Surface Antigen [Pending], Hepatitis B Core IgM Antibody [Pending], Hepatitis C Antibody [Pending] Current Medications Medications (Trade) Dose Ordered Sig/Obdulia Route PRN Reason Start Time Stop Time Status Last Admin Dose Admin Acetaminophen (Tylenol) 650 mg Q4H PRN ORAL fever 04/24/18 17:15 05/24/18 17:14 Al Hydroxide/Mg Hydroxide (Mylanta II) 30 ml Q6H PRN ORAL dyspepsia 04/24/18 17:15 05/24/18 17:14 Amlodipine Besylate (Norvasc) 10 mg DAILY ORAL 04/25/18 09:00 05/25/18 08:59 Dextrose (Dextrose 50%) 25 ml Q30M PRN IV Hypoglycemia 04/24/18 17:15 05/24/18 17:14 Dextrose (Dextrose 50%) 50 ml Q30M PRN IV Hypoglycemia 04/24/18 17:15 05/24/18 17:14 Folic Acid (Folate) 1 mg DAILY ORAL 04/25/18 12:00 05/25/18 11:59 04/25/18 14:31 Heparin Sodium (Porcine) (Heparin 5000 units/ml) 5,000 units EVERY 12 HOURS SUBQ 04/24/18 21:00 05/24/18 20:59 04/25/18 09:57 Hydralazine HCl (Apresoline) 25 mg EVERY 8 HOURS ORAL 04/24/18 22:00 05/24/18 21:59 04/25/18 05:46 Levetiracetam (Keppra) 500 mg EVERY 12 HOURS ORAL 04/24/18 21:00 05/24/18 20:59 04/25/18 09:52 Lorazepam (Ativan 2mg/ml 1ml) 0.5 mg Q4H PRN IV For Anxiety 04/24/18 17:15 05/01/18 17:14 Morphine Sulfate (Morphine Sulfate) 2 mg Q4H PRN IVP For Pain 4-6 04/24/18 17:15 05/01/18 17:14 04/25/18 14:32 Morphine Sulfate (Morphine Sulfate) 4 mg Q4H PRN IVP For Pain 7-10 04/24/18 17:15 05/01/18 17:14 Ondansetron HCl (Zofran) 4 mg Q6H PRN IVP Nausea & Vomiting 04/24/18 17:15 05/24/18 17:14 Ondansetron HCl (Zofran) 4 mg Q8H PRN ORAL Nausea & Vomiting 04/24/18 17:05 05/24/18 17:04 Phenytoin (Dilantin) 100 mg THREE TIMES A DAY ORAL 04/24/18 18:00 05/24/18 17:59 04/25/18 14:31 Polyethylene Glycol (Miralax) 17 gm HSPRN PRN ORAL Constipation 04/24/18 17:15 05/24/18 17:14 Zolpidem Tartrate (Ambien) 5 mg HSPRN PRN ORAL Insomnia 04/24/18 17:15 05/01/18 17:14 Millicent Armas MD Apr 25, 2018 14:43
[2018-04-25 16:00] VITALS: BP 138/78
--- NOTE | 2018-04-25 16:36 | NUR ---
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 98.3 HR 79 RR 19 B/P 117/86 RA 98% AST 46 ALT 104 ALK PHOS 634 IS: KEPPRA PO DILANTIN PO HEPARIN SUBC NEURO CONSULT MED/SURG STATUS
--- NOTE | 2018-04-25 16:39 | Consultation ---
History of Present Illness General Date patient seen: Apr 25, 2018 Present Illness Allergies: Coded Allergies: No Known Allergies (Unverified , 04/24/18) Medication History Scheduled Amlodipine Besylate* (Amlodipine Besylate*), 10 MG ORAL DAILY, (Reported) Famotidine (Pepcid Ac), 20 MG PO DAILY, (Reported) Hydralazine Hcl* (Hydralazine Hcl*), 25 MG ORAL EVERY 8 HOURS, (Reported) Levetiracetam (Keppra), 500 MG ORAL EVERY 12 HOURS, (Reported) Phenytoin Sodium Extended* (Dilantin*), 100 MG ORAL THREE TIMES A DAY, (Reported ) Scheduled PRN Diphenhydramine Hcl* (Benadryl*), 25 MG ORAL Q6H PRN for Itching, (Reported) Ondansetron (Zofran), 4 MG ORAL Q8H PRN for Nausea & Vomiting, (Reported) Oxycodone HCl (Oxycodone HCl), 5 MG ORAL Q6HR PRN for For Pain, (Reported) Miscellaneous Medications Nicotine (Nicotine Patch), 1 EACH TD, (Reported) Patient History Healthcare decision maker Resuscitation status Full Code Advanced Directive on File Physical Exam Last 24 Hour Vital Signs Date Time Temp Pulse Resp B/P (MAP) Pulse Ox O2 Delivery O2 Flow Rate FiO2 04/25/18 15:02 98.3 04/25/18 14:00 117/86 04/25/18 12:00 98.3 79 19 117/86 (96) 97 04/25/18 09:45 76 104/63 04/25/18 08:45 Room Air 04/25/18 08:00 98.6 76 18 104/63 (77) 95 04/25/18 05:46 120/73 04/25/18 04:00 99.3 99 18 120/73 (89) 97 04/25/18 00:00 99.5 95 19 128/83 (98) 99 04/24/18 21:06 102/59 04/24/18 21:00 Room Air 04/24/18 20:00 98.9 95 18 131/76 (94) 99 Intake and Output 04/24/18 04/25/18 18:59 06:59 Intake Total 1060 ml 65 ml Balance 1060 ml 65 ml Intake Oral 60 ml 65 ml IV Total 1000 ml # Voids 3 Laboratory Tests Test 04/25/18 05:15 White Blood Count 5.3 K/UL (4.8-10.8) Red Blood Count 3.87 M/UL (4.70-6.10) L Hemoglobin 12.8 G/DL (14.2-18.0) L Hematocrit 37.9 % (42.0-52.0) L Mean Corpuscular Volume 98 FL (80-99) Mean Corpuscular Hemoglobin 33.1 PG (27.0-31.0) H Mean Corpuscular Hemoglobin Concent 33.9 G/DL (32.0-36.0) Red Cell Distribution Width 11.1 % (11.6-14.8) L Platelet Count 380 K/UL (150-450) Mean Platelet Volume 4.9 FL (6.5-10.1) L Neutrophils (%) (Auto) 43.4 % (45.0-75.0) L Lymphocytes (%) (Auto) 22.9 % (20.0-45.0) Monocytes (%) (Auto) 18.1 % (1.0-10.0) H Eosinophils (%) (Auto) 14.5 % (0.0-3.0) H Basophils (%) (Auto) 1.2 % (0.0-2.0) Reticulocyte Count 0.8 % (0.0-2.0) Prothrombin Time 10.9 SEC (9.30-11.50) Prothromb Time International Ratio 1.0 (0.9-1.1) Activated Partial Thromboplast Time 31 SEC (23-33) Sodium Level 138 MMOL/L (136-145) Potassium Level 3.8 MMOL/L (3.5-5.1) Chloride Level 102 MMOL/L (98-107) Carbon Dioxide Level 24 MMOL/L (21-32) Anion Gap 13 mmol/L (5-15) Blood Urea Nitrogen 9 mg/dL (7-18) Creatinine 0.9 MG/DL (0.55-1.30) Estimat Glomerular Filtration Rate > 60 mL/min (>60) Glucose Level 79 MG/DL (74-106) Calcium Level 9.0 MG/DL (8.5-10.1) Iron Level 45 ug/dL (50-175) L Total Iron Binding Capacity 179 ug/dL (250-450) L Percent Iron Saturation 25 % (15-50) Unsaturated Iron Binding 134 ug/dL (112-346) Ferritin 523 NG/ML (8-388) H Total Bilirubin 0.8 MG/DL (0.2-1.0) Aspartate Amino Transf (AST/SGOT) 46 U/L (15-37) H Alanine Aminotransferase (ALT/SGPT) 104 U/L (12-78) H Alkaline Phosphatase 634 U/L (46-116) H Total Protein 7.2 G/DL (6.4-8.2) Albumin 3.1 G/DL (3.4-5.0) L Globulin 4.1 g/dL Albumin/Globulin Ratio 0.8 (1.0-2.7) L Carcinoembryonic Antigen Pending Vitamin B12 Level 1016 PG/ML (193-986) H Folate 5.8 NG/ML (8.6-58.9) L Thyroid Stimulating Hormone (TSH) 1.207 uiU/mL (0.358-3.740) Free Thyroxine 0.77 NG/DL (0.76-1.46) Hepatitis A IgM Antibody Pending Hepatitis B Surface Antigen Pending Hepatitis B Core IgM Antibody Pending Hepatitis C Antibody Pending Height (Feet): 5 Height (Inches): 11.00 Weight (Pounds): 180 Medications Current Medications Medications (Trade) Dose Ordered Sig/Obdulia Route PRN Reason Start Time Stop Time Status Last Admin Dose Admin Acetaminophen (Tylenol) 650 mg Q4H PRN ORAL fever 04/24/18 17:15 05/24/18 17:14 04/25/18 16:03 Al Hydroxide/Mg Hydroxide (Mylanta II) 30 ml Q6H PRN ORAL dyspepsia 04/24/18 17:15 05/24/18 17:14 Amlodipine Besylate (Norvasc) 10 mg DAILY ORAL 04/25/18 09:00 05/25/18 08:59 Dextrose (Dextrose 50%) 25 ml Q30M PRN IV Hypoglycemia 04/24/18 17:15 05/24/18 17:14 Dextrose (Dextrose 50%) 50 ml Q30M PRN IV Hypoglycemia 04/24/18 17:15 05/24/18 17:14 Folic Acid (Folate) 1 mg DAILY ORAL 04/25/18 12:00 05/25/18 11:59 04/25/18 14:31 Heparin Sodium (Porcine) (Heparin 5000 units/ml) 5,000 units EVERY 12 HOURS SUBQ 04/24/18 21:00 05/24/18 20:59 04/25/18 09:57 Hydralazine HCl (Apresoline) 25 mg EVERY 8 HOURS ORAL 04/24/18 22:00 05/24/18 21:59 04/25/18 05:46 Levetiracetam (Keppra) 500 mg EVERY 12 HOURS ORAL 04/24/18 21:00 05/24/18 20:59 04/25/18 09:52 Lorazepam (Ativan 2mg/ml 1ml) 0.5 mg Q4H PRN IV For Anxiety 04/24/18 17:15 05/01/18 17:14 Morphine Sulfate (Morphine Sulfate) 2 mg Q4H PRN IVP For Pain 4-6 04/24/18 17:15 05/01/18 17:14 04/25/18 14:32 Morphine Sulfate (Morphine Sulfate) 4 mg Q4H PRN IVP For Pain 7-10 04/24/18 17:15 05/01/18 17:14 Ondansetron HCl (Zofran) 4 mg Q6H PRN IVP Nausea & Vomiting 04/24/18 17:15 05/24/18 17:14 Ondansetron HCl (Zofran) 4 mg Q8H PRN ORAL Nausea & Vomiting 04/24/18 17:05 05/24/18 17:04 Phenytoin (Dilantin) 100 mg THREE TIMES A DAY ORAL 04/24/18 18:00 05/24/18 17:59 04/25/18 14:31 Polyethylene Glycol (Miralax) 17 gm HSPRN PRN ORAL Constipation 04/24/18 17:15 05/24/18 17:14 Zolpidem Tartrate (Ambien) 5 mg HSPRN PRN ORAL Insomnia 04/24/18 17:15 05/01/18 17:14 Assessment/Plan Assessment/Plan (1) Headache (2) Brain neoplasm s/p craniotomy and resection seen dictated Albert Hoyos Apr 25, 2018 16:39
--- NOTE | 2018-04-25 17:25 | Cardiology Report ---
APPROVED REPORT EKG Measurement Heart [id number] Normal sinus rhythm Normal ECG
--- NOTE | 2018-04-25 17:45 | NUR ---
Patient found sitting on floor by RN, Emory Lin, Dr. Parada, and Dr. Armas notified as well as charge nurse, orders received and placed in computer, awaiting call back from Dr. Parada, patient brought closer to nursing station for closer observation, no distress noted, patient alert x 4, will continue to monitor.
[2018-04-25 20:00] VITALS: BP 138/85
--- NOTE | 2018-04-25 20:30 | NUR ---
NURSE NOTES: Received call from Dr Parada, to do neuro check q12. No acute distress noted, pt denies any discomfort at this time. Bed in lowest position, bed alarm on safety.
--- NOTE | 2018-04-25 22:10 | NUR ---
NURSE NOTES: Unable to get hold of radiology department for hip xray. Charge nurse aware. Will keep f/u.
[2018-04-26] VITALS: BP 148/83
[2018-04-26] MEDS: Morphine Sulfate 2mg/ml Inj(IV/IM USE ONLY) IVP PRN (01:02)
[2018-04-26 04:00] VITALS: BP 135/81
--- NOTE | 2018-04-26 04:30 | Consultation ---
DATE OF CONSULTATION: 04/25/2018 PAIN MANAGEMENT CONSULTATION CONSULTING PHYSICIAN: Jaylin Delarosa M.D. REFERRING PHYSICIAN: Neri Cat D.O. PHYSICIAN KEYBOARD ACTION ASSEMBLER: Jaret Jack CHIEF COMPLAINT: Headache. HISTORY OF PRESENT ILLNESS: This is a 57-year-old male who is being seen on the Medical/Surgical floor of [facility] for initial pain management consultation. The patient is in bed with his family at bedside, reporting that he has had headaches. 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 Recently he was discharged to the nursing facility. However, he had been having severe pain in the head, he received oxycodone 5 mg tablets. He was admitted into the hospital under the care of Dr. Cat. We were consulted so that the patient would have adequate pain control while here in the hospital. At this time, the patient is on morphine 2 to 4 mg IV every 4 hours as needed for moderate to severe pain. Discussed with the patient about adding Neurontin 300 mg tablet to his regimen. He seems to understand. The patient will be seen by a neurologist as well as per avian keeper. PAST MEDICAL HISTORY: Seizure disorder and brain neoplasm. PAST SURGICAL HISTORY: Craniotomy for brain tumor removal. SOCIAL HISTORY: He is a smoker. He drinks alcohol. Denied IV drug abuse. ALLERGIES: No known drug allergies. MEDICATIONS: Pepcid, hydralazine, Keppra, Dilantin, Zofran, Benadryl, and oxycodone. REVIEW OF SYSTEMS: Denies rash, fever, chills, sweating, dizziness, drowsiness, blurred vision, sore throat, or change in his weight. No shortness of breath, chest pain, palpitations, or cough. No nausea, vomiting, diarrhea, or blood in stool or urine. He complains of headaches. PHYSICAL EXAMINATION: GENERAL: Alert, awake, and oriented. VITAL SIGNS: Blood pressure 120/80, heart rate 89, oxygen saturation is 99%, respirations 18, and temperature is 98.2 degrees Fahrenheit. HEENT: PERRLA with scar noted at the scalp area. Tenderness to palpation. NECK: Range of motion is full in all directions. No tenderness to paracervical muscles. No adenopathy. LUNGS: Clear bilaterally. HEART: S1 and S2, regular. ABDOMEN: Soft and nontender. BACK: Range of motion is decreased in flexion and extension. No tenderness to paraspinal muscles or trapezius or rhomboid muscles. EXTREMITIES: Upper and lower extremity range of motion is full in all directions. No cyanosis. No clubbing. No edema. Sensory is intact. Reflexes are not obtainable. No adenopathy. ASSESSMENT AND PLAN: This is a 57-year-old male with headache, benign brain tumor, status post craniotomy and resection. The patient will be continued on morphine IV and will be started on Neurontin 300 mg tablets 3 times a day. He is going to be seen by a neurologist at this time. The patient was discussed with Dr. Delarosa and he concurred. We will follow the patient. Thank you very much for the courtesy of this consultation. Jaylin Delarosa M.D. ZAYRA Jack DR: DANITZA JOB#: [id number] CC: [email or web address]
[2018-04-26] MEDS: HydrALAZINE 25mg tab ORAL SCH ×3 (05:27→21:52)
[2018-04-26 07:03] LABS: BASOPHILS % (AUTO) 1.1 % (0.0-2.0); EOSINOPHILS % (AUTO) 14.3 % (0.0-3.0); HEMATOCRIT 39.7 % (42.0-52.0); HEMOGLOBIN 13.7 G/DL (14.2-18.0); LYMPHOCYTES % (AUTO) 26.8 % (20.0-45.0); MEAN CORPUSCULAR VOLUME 97 FL (80-99); MONOCYTES % (AUTO) 12.7 % (1.0-10.0); NEUTROPHILS % (AUTO) 45.1 % (45.0-75.0); PLATELET COUNT 354 K/UL (150-450); RED CELL DISTRIBUTION WIDTH 11.2 % (11.6-14.8); WHITE BLOOD COUNT 6.1 K/UL (4.8-10.8)
--- NOTE | 2018-04-26 07:05 | General Progress Note ---
Assessment/Plan Problem List: (1) Head ache ICD Codes: R51 - Headache SNOMED: 72595559 (2) Weak ICD Codes: R53.1 - Weakness SNOMED: 50488751 (3) HTN (hypertension) ICD Codes: I10 - Essential (primary) hypertension SNOMED: 74147405 (4) Malnutrition ICD Codes: E46 - Unspecified protein-calorie malnutrition SNOMED: 54106652 (5) Epilepsy ICD Codes: G40.909 - Epilepsy, unspecified, not intractable, without status epilepticus SNOMED: 01535346 (6) Intractable pain ICD Codes: R52 - Pain, unspecified SNOMED: 78467832 Status: unchanged Assessment/Plan pt siet pain control neuro psyc eval cbc bmp am Subjective Constitutional: Reports: weakness Allergies: Coded Allergies: No Known Allergies (Unverified , 04/24/18) All Systems: reviewed and negative except above Subjective sleepy calm Objective Last 24 Hour Vital Signs Date Time Temp Pulse Resp B/P (MAP) Pulse Ox O2 Delivery O2 Flow Rate FiO2 04/26/18 05:27 140/84 04/26/18 04:00 98.7 99 20 135/81 (99) 98 04/26/18 00:00 98.5 101 18 148/83 (104) 97 04/25/18 21:29 140/88 04/25/18 21:00 Room Air 04/25/18 20:00 97.8 97 20 138/85 (102) 98 04/25/18 16:33 98.8 04/25/18 16:00 100.6 98 20 138/78 (98) 97 04/25/18 15:02 98.3 04/25/18 14:00 117/86 04/25/18 12:00 98.3 79 19 117/86 (96) 97 04/25/18 09:45 76 104/63 04/25/18 08:45 Room Air 04/25/18 08:00 98.6 76 18 104/63 (77) 95 Intake and Output 04/25/18 04/26/18 19:00 07:00 Intake Total 480 ml 120 ml Output Total 750 ml Balance -270 ml 120 ml Intake Oral 480 ml 120 ml Output Urine Total 750 ml # Voids 3 Laboratory Tests 04/26/18 05:35: White Blood Count [Pending], Red Blood Count [Pending], Hemoglobin [Pending], Hematocrit [Pending], Mean Corpuscular Volume [Pending], Mean Corpuscular Hemoglobin [Pending], Mean Corpuscular Hemoglobin Concent [Pending], Red Cell Distribution Width [Pending], Platelet Count [Pending], Mean Platelet Volume [ Pending], Neutrophils (%) (Auto) [Pending], Lymphocytes (%) (Auto) [Pending], Monocytes (%) (Auto) [Pending], Eosinophils (%) (Auto) [Pending], Basophils (%) (Auto) [Pending], Sodium Level [Pending], Potassium Level [Pending], Chloride Level [Pending], Carbon Dioxide Level [Pending], Blood Urea Nitrogen [Pending], Creatinine [Pending], Estimat Glomerular Filtration Rate [Pending], Glucose Level [Pending], Calcium Level [Pending] Height (Feet): 5 Height (Inches): 11.00 Weight (Pounds): 145 General Appearance: lethargic EENT: PERRL/EOMI Neck: normal alignment Cardiovascular: normal peripheral pulses, normal rate, regular rhythm Respiratory/Chest: chest wall non-tender, lungs clear, normal breath sounds Abdomen: normal bowel sounds, non tender, soft Extremities: normal inspection Edema: no edema noted Arm (L), no edema noted Arm (R), no edema noted Leg (L), no edema noted Leg (R), no edema noted Pedal (L), no edema noted Pedal (R), no edema noted Generalized Neurologic: motor weakness Skin: normal pigmentation, warm/dry Neri Cat DO Apr 26, 2018 07:05
--- NOTE | 2018-04-26 07:09 | NUR ---
HAND-OFF: Report given to Channing GLOVER.
[2018-04-26 07:24] LABS: ANION GAP 12 mmol/L (5-15); BLOOD UREA NITROGEN 9 mg/dL (7-18); CALCIUM 9.1 MG/DL (8.5-10.1); CARBON DIOXIDE 24 MMOL/L (21-32); CHLORIDE 98 MMOL/L (98-107); CREATININE 0.9 MG/DL (0.55-1.30); POTASSIUM 3.8 MMOL/L (3.5-5.1); SODIUM 134 MMOL/L (136-145)
[2018-04-26 08:00] VITALS: BP 114/69
[2018-04-26] MEDS: Morphine Sulfate 4mg/ml Inj (IV USE ONLY) IVP PRN ×2 (08:46→23:26)
[2018-04-26] MEDS: Phenytoin 100mg cap ORAL SCH ×3 (08:47→17:14)
--- NOTE | 2018-04-26 08:47 | General Progress Note ---
Assessment/Plan Assessment/Plan (1) Headache (2) Brain neoplasm s/p craniotomy and resection Patient to be continued on Morphine and Neurontin D/w Dr. Delarosa and he concurred. Subjective Date patient seen: Apr 26, 2018 Time patient seen: 07:15 - am Allergies: Uncoded Allergies: CONTRAST (Allergy, Mild, Rash, 04/26/18) Subjective REVIEW OF SYSTEMS: Denies rash, fever, chills, sweating, dizziness, drowsiness, blurred vision, sore throat, or change in his weight. No shortness of breath, chest pain, palpitations, or cough. No nausea, vomiting, diarrhea, or blood in stool or urine. He complains of headaches. SUBJECTIVE: Patient continues to c/o pain which has been tolerated on the Morphine and has used two doses of Neurontin. Objective Last 24 Hour Vital Signs Date Time Temp Pulse Resp B/P (MAP) Pulse Ox O2 Delivery O2 Flow Rate FiO2 04/26/18 08:00 99.6 113 19 114/69 (84) 97 04/26/18 05:27 140/84 04/26/18 04:00 98.7 99 20 135/81 (99) 98 04/26/18 00:00 98.5 101 18 148/83 (104) 97 04/25/18 21:29 140/88 04/25/18 21:00 Room Air 04/25/18 20:00 97.8 97 20 138/85 (102) 98 04/25/18 16:33 98.8 04/25/18 16:00 100.6 98 20 138/78 (98) 97 04/25/18 15:02 98.3 04/25/18 14:00 117/86 04/25/18 12:00 98.3 79 19 117/86 (96) 97 04/25/18 09:45 76 104/63 Intake and Output 04/25/18 04/26/18 19:00 07:00 Intake Total 480 ml 120 ml Output Total 750 ml Balance -270 ml 120 ml Intake Oral 480 ml 120 ml Output Urine Total 750 ml # Voids 3 Laboratory Tests 04/26/18 05:35: White Blood Count 6.1, Red Blood Count 4.10L, Hemoglobin 13.7L, Hematocrit 39.7L , Mean Corpuscular Volume 97, Mean Corpuscular Hemoglobin 33.4H, Mean Corpuscular Hemoglobin Concent 34.5, Red Cell Distribution Width 11.2L, Platelet Count 354, Mean Platelet Volume 4.9L, Neutrophils (%) (Auto) 45.1, Lymphocytes (%) (Auto) 26.8, Monocytes (%) (Auto) 12.7H, Eosinophils (%) (Auto) 14.3H, Basophils (%) (Auto) 1.1, Sodium Level 134L, Potassium Level 3.8, Chloride Level 98, Carbon Dioxide Level 24, Anion Gap 12, Blood Urea Nitrogen 9 , Creatinine 0.9, Estimat Glomerular Filtration Rate > 60, Glucose Level 94, Calcium Level 9.1 Height (Feet): 5 Height (Inches): 11.00 Weight (Pounds): 145 Objective GENERAL: Alert, awake, and oriented. LUNGS: Clear bilaterally. HEART: S1 and S2, regular. ABDOMEN: Soft and nontender. EXTREMITIES: No cyanosis. No clubbing. No edema. NEURO: No changes. Albert Hoyos Apr 26, 2018 08:47
[2018-04-26] MEDS: Heparin 5000 units/ml inj SUBQ SCH ×2 (08:50→20:27)
--- NOTE | 2018-04-26 09:30 | NUR ---
NURSE NOTES: PT AXOX2, CALM, RESTLESS AT TIMES. ABLE TO BE RE-DIRECTED. WEAK UPPER EXTREMITIES. UNABLE TO GRASP AND USE EATING UTENSILS. NEEDS ASSIST TO EAT MEALS. PT EDUCATED ON FALL PRECAUTIONS. NEEDS REINFORCEMENT TEACHING. BED IN LOWEST POSITION WITH BEDSIDE RAILS X3 RAISED. BEDSIDE RAILS PADDED FOR SEIZURE PRECAUTIONS. BED ALARM ON. WILL CONTINUE TO MONITOR.
--- NOTE | 2018-04-26 10:43 | GI Progress Note ---
Assessment/Plan Problems: (1) Weak ICD Codes: R53.1 - Weakness SNOMED: 72017602 (2) Malnutrition ICD Codes: E46 - Unspecified protein-calorie malnutrition SNOMED: 28790028 (3) Brain tumor ICD Codes: D49.6 - Neoplasm of unspecified behavior of brain SNOMED: 596720854 (4) Transaminitis ICD Codes: R74.0 - Nonspecific elevation of levels of transaminase and lactic acid dehydrogenase [LDH] SNOMED: 646551584, 346281904 (5) Anemia ICD Codes: D64.9 - Anemia, unspecified SNOMED: 465981044 (6) Intractable pain ICD Codes: R52 - Pain, unspecified SNOMED: 95537229 Status: unchanged Status Narrative Discussed with Dr. Kimball Assessment/Plan Head CT reviewed lipase normal abdominal US reviewed, negative adv diet follow Hepatitis panel OB stool r/o GI bleed monitor H&H, prn transfusions bowel regime ppi fu labs, trend LFTs Outpatient GI procedures The patient was seen and examined at bedside and all new and available data was reviewed in the patients chart. I agree with the above findings, impression and plan. (Patient seen earlier today. Signature stamp does not reflect patient encounter time.). - Barry Kimball MD Subjective Gastrointestinal/Abdominal: Reports: no symptoms Objective Last 24 Hour Vital Signs Date Time Temp Pulse Resp B/P (MAP) Pulse Ox O2 Delivery O2 Flow Rate FiO2 04/26/18 08:47 113 114/69 04/26/18 08:00 99.6 113 19 114/69 (84) 97 04/26/18 05:27 140/84 04/26/18 04:00 98.7 99 20 135/81 (99) 98 04/26/18 00:00 98.5 101 18 148/83 (104) 97 04/25/18 21:29 140/88 04/25/18 21:00 Room Air 04/25/18 20:00 97.8 97 20 138/85 (102) 98 04/25/18 16:33 98.8 04/25/18 16:00 100.6 98 20 138/78 (98) 97 04/25/18 15:02 98.3 04/25/18 14:00 117/86 04/25/18 12:00 98.3 79 19 117/86 (96) 97 Intake and Output 04/25/18 04/26/18 19:00 07:00 Intake Total 480 ml 120 ml Output Total 750 ml Balance -270 ml 120 ml Intake Oral 480 ml 120 ml Output Urine Total 750 ml # Voids 3 Laboratory Tests Test 04/26/18 05:35 White Blood Count 6.1 K/UL (4.8-10.8) Red Blood Count 4.10 M/UL (4.70-6.10) L Hemoglobin 13.7 G/DL (14.2-18.0) L Hematocrit 39.7 % (42.0-52.0) L Mean Corpuscular Volume 97 FL (80-99) Mean Corpuscular Hemoglobin 33.4 PG (27.0-31.0) H Mean Corpuscular Hemoglobin Concent 34.5 G/DL (32.0-36.0) Red Cell Distribution Width 11.2 % (11.6-14.8) L Platelet Count 354 K/UL (150-450) Mean Platelet Volume 4.9 FL (6.5-10.1) L Neutrophils (%) (Auto) 45.1 % (45.0-75.0) Lymphocytes (%) (Auto) 26.8 % (20.0-45.0) Monocytes (%) (Auto) 12.7 % (1.0-10.0) H Eosinophils (%) (Auto) 14.3 % (0.0-3.0) H Basophils (%) (Auto) 1.1 % (0.0-2.0) Sodium Level 134 MMOL/L (136-145) L Potassium Level 3.8 MMOL/L (3.5-5.1) Chloride Level 98 MMOL/L (98-107) Carbon Dioxide Level 24 MMOL/L (21-32) Anion Gap 12 mmol/L (5-15) Blood Urea Nitrogen 9 mg/dL (7-18) Creatinine 0.9 MG/DL (0.55-1.30) Estimat Glomerular Filtration Rate > 60 mL/min (>60) Glucose Level 94 MG/DL (74-106) Calcium Level 9.1 MG/DL (8.5-10.1) Height (Feet): 5 Height (Inches): 11.00 Weight (Pounds): 145 General Appearance: WD/WN, no apparent distress, alert Cardiovascular: normal rate Respiratory/Chest: normal breath sounds, no respiratory distress Abdominal Exam: normal bowel sounds, non tender, soft Extremities: normal range of motion, non-tender Bhupendra Barriga NP Apr 26, 2018 10:43
--- NOTE | 2018-04-26 11:06 | Diagnostic Imaging Report ---
Indications: hip pain Findings: Two views of the right hip were obtained. No acute fracture is demonstrated. Alignment of the hip is within normal limits. There is blunting of the femoral head and neck junction. This predisposes to femoral acetabular impingement. Soft tissues are unremarkable. Impression: Negative for acute injury.
--- NOTE | 2018-04-26 11:06 | Diagnostic Imaging Report ---
Indications: Left hip pain Findings: Two views of the left hip were obtained. No acute fracture is demonstrated. Alignment of the hip is within normal limits. There is some blunting of the femoral head and neck which may predispose to femoral acetabular impingement. Bones are osteopenic. Soft tissues are unremarkable. Impression: Negative for acute injury.
[2018-04-26 12:00] VITALS: BP 122/69
[2018-04-26] MEDS ORDERED: Gadavist 7.5mMol/7.5ml vial IV PRN (13:45)
--- NOTE | 2018-04-26 13:54 | Consultation ---
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 Denies f/c, dizziness, SOB, CP, n/v/d, neck pain, photophobia. Allergies: Coded Allergies: No Known Allergies (Unverified , 04/24/18) Medication History Scheduled Amlodipine Besylate* (Amlodipine Besylate*), 10 MG ORAL DAILY, (Reported) Famotidine (Pepcid Ac), 20 MG PO DAILY, (Reported) Hydralazine Hcl* (Hydralazine Hcl*), 25 MG ORAL EVERY 8 HOURS, (Reported) Levetiracetam (Keppra), 500 MG ORAL EVERY 12 HOURS, (Reported) Phenytoin Sodium Extended* (Dilantin*), 100 MG ORAL THREE TIMES A DAY, (Reported ) Scheduled PRN Diphenhydramine Hcl* (Benadryl*), 25 MG ORAL Q6H PRN for Itching, (Reported) Ondansetron (Zofran), 4 MG ORAL Q8H PRN for Nausea & Vomiting, (Reported) Oxycodone HCl (Oxycodone HCl), 5 MG ORAL Q6HR PRN for For Pain, (Reported) Miscellaneous Medications Nicotine (Nicotine Patch), 1 EACH TD, (Reported) Patient History Healthcare decision maker Resuscitation status Full Code Advanced Directive on File Patient History Narrative Pmhx: as above Shx:He is a smoker. He drinks alcohol. Denied IV drug abuse. Fhx: non contributory Review of Systems All Other Systems: negative except mentioned in HPI Physical Exam Physical Exam Narrative HEAD: craniotomy scar with some superficial ulceration on R left side- no signs of infection GENERAL: Anxious in bed, oriented x2, in no acute distress. CARDIOVASCULAR: No murmur. LUNGS: Distant and clear. ABDOMEN: Bowel sounds positive. Nontender. Nondistended. EXTREMITIES: No cyanosis, clubbing, or edema. NEUROLOGIC: The patient moves all extremities. Slight weakness in extremities. Skin: maculopapular rash in torso, arms Last 24 Hour Vital Signs Date Time Temp Pulse Resp B/P (MAP) Pulse Ox O2 Delivery O2 Flow Rate FiO2 04/26/18 12:00 96.8 111 18 122/69 (86) 94 04/26/18 09:00 Room Air 04/26/18 08:47 113 114/69 04/26/18 08:00 99.6 113 19 114/69 (84) 97 04/26/18 05:27 140/84 04/26/18 04:00 98.7 99 20 135/81 (99) 98 04/26/18 00:00 98.5 101 18 148/83 (104) 97 04/25/18 21:29 140/88 04/25/18 21:00 Room Air 04/25/18 20:00 97.8 97 20 138/85 (102) 98 04/25/18 16:33 98.8 04/25/18 16:00 100.6 98 20 138/78 (98) 97 04/25/18 15:02 98.3 04/25/18 14:00 117/86 Intake and Output 04/25/18 04/26/18 19:00 07:00 Intake Total 480 ml 120 ml Output Total 750 ml Balance -270 ml 120 ml Intake Oral 480 ml 120 ml Output Urine Total 750 ml # Voids 3 Laboratory Tests Test 04/26/18 05:35 White Blood Count 6.1 K/UL (4.8-10.8) Red Blood Count 4.10 M/UL (4.70-6.10) L Hemoglobin 13.7 G/DL (14.2-18.0) L Hematocrit 39.7 % (42.0-52.0) L Mean Corpuscular Volume 97 FL (80-99) Mean Corpuscular Hemoglobin 33.4 PG (27.0-31.0) H Mean Corpuscular Hemoglobin Concent 34.5 G/DL (32.0-36.0) Red Cell Distribution Width 11.2 % (11.6-14.8) L Platelet Count 354 K/UL (150-450) Mean Platelet Volume 4.9 FL (6.5-10.1) L Neutrophils (%) (Auto) 45.1 % (45.0-75.0) Lymphocytes (%) (Auto) 26.8 % (20.0-45.0) Monocytes (%) (Auto) 12.7 % (1.0-10.0) H Eosinophils (%) (Auto) 14.3 % (0.0-3.0) H Basophils (%) (Auto) 1.1 % (0.0-2.0) Sodium Level 134 MMOL/L (136-145) L Potassium Level 3.8 MMOL/L (3.5-5.1) Chloride Level 98 MMOL/L (98-107) Carbon Dioxide Level 24 MMOL/L (21-32) Anion Gap 12 mmol/L (5-15) Blood Urea Nitrogen 9 mg/dL (7-18) Creatinine 0.9 MG/DL (0.55-1.30) Estimat Glomerular Filtration Rate > 60 mL/min (>60) Glucose Level 94 MG/DL (74-106) Calcium Level 9.1 MG/DL (8.5-10.1) Height (Feet): 5 Height (Inches): 11.00 Weight (Pounds): 145 Medications Current Medications Medications (Trade) Dose Ordered Sig/Obdulia Route PRN Reason Start Time Stop Time Status Last Admin Dose Admin Acetaminophen (Tylenol) 650 mg Q4H PRN ORAL fever 04/24/18 17:15 05/24/18 17:14 04/25/18 16:03 Al Hydroxide/Mg Hydroxide (Mylanta II) 30 ml Q6H PRN ORAL dyspepsia 04/24/18 17:15 05/24/18 17:14 Amlodipine Besylate (Norvasc) 10 mg DAILY ORAL 04/25/18 09:00 05/25/18 08:59 Dextrose (Dextrose 50%) 25 ml Q30M PRN IV Hypoglycemia 04/24/18 17:15 05/24/18 17:14 Dextrose (Dextrose 50%) 50 ml Q30M PRN IV Hypoglycemia 04/24/18 17:15 05/24/18 17:14 Folic Acid (Folate) 1 mg DAILY ORAL 04/25/18 12:00 05/25/18 11:59 04/26/18 08:47 Gabapentin (Neurontin) 300 mg THREE TIMES A DAY ORAL 04/25/18 18:00 05/25/18 17:59 04/26/18 08:47 Heparin Sodium (Porcine) (Heparin 5000 units/ml) 5,000 units EVERY 12 HOURS SUBQ 04/24/18 21:00 05/24/18 20:59 04/26/18 08:50 Hydralazine HCl (Apresoline) 25 mg EVERY 8 HOURS ORAL 04/24/18 22:00 05/24/18 21:59 04/26/18 05:27 Levetiracetam (Keppra) 500 mg EVERY 12 HOURS ORAL 04/24/18 21:00 05/24/18 20:59 04/26/18 08:47 Lorazepam (Ativan 2mg/ml 1ml) 0.5 mg Q4H PRN IV For Anxiety 04/24/18 17:15 05/01/18 17:14 Morphine Sulfate (Morphine Sulfate) 2 mg Q4H PRN IVP For Pain 4-6 04/24/18 17:15 05/01/18 17:14 04/26/18 01:02 Morphine Sulfate (Morphine Sulfate) 4 mg Q4H PRN IVP For Pain 7-10 04/24/18 17:15 05/01/18 17:14 04/26/18 08:46 Ondansetron HCl (Zofran) 4 mg Q6H PRN IVP Nausea & Vomiting 04/24/18 17:15 05/24/18 17:14 04/26/18 09:00 Ondansetron HCl (Zofran) 4 mg Q8H PRN ORAL Nausea & Vomiting 04/24/18 17:05 05/24/18 17:04 Phenytoin (Dilantin) 100 mg THREE TIMES A DAY ORAL 04/24/18 18:00 05/24/18 17:59 04/26/18 08:47 Polyethylene Glycol (Miralax) 17 gm HSPRN PRN ORAL Constipation 04/24/18 17:15 05/24/18 17:14 Zolpidem Tartrate (Ambien) 5 mg HSPRN PRN ORAL Insomnia 04/24/18 17:15 05/01/18 17:14 Assessment/Plan Assessment/Plan Abx: None Assessment: Sepsis Low grade fever Headache- r/o brain abscess, meningitis -CT brain wo: Postsurgical changes associated with relatively recent bifrontal craniotomy likely resection of a mass in the area of the interhemispheric fissure. 6 mm thick mixed attenuation extra-axial blood noted within the surgical bed. Please correlate with the operative report and comparison with prior studies is strongly recommended. Recent Brain tumor removal (1 month ago) Fever No leukocytosis Elevated LFTs, improving -Abd US: No acute findings. -Acute hep panel neg seizure disorder GERD tobacco use Drug rash-?cultprit (present before antibiotics) Plan: -Start empiric IV Vancomycin and Cefepime -Bcx x2, influenza sc, ESR/CRP, HIV ag/ab -MRI brain w/wo to evaluate for infectious process -May need LP; will await MRI first -f/u cx -Monitor CBC/CMP, temperatures -management of drug rash per primary Thank you for this consultation. Will continue to follow along with you. Discussed with Kelsie Cobos M.D. Apr 26, 2018 13:54
--- NOTE | 2018-04-26 14:07 | Pulmonology Progress Note ---
Assessment/Plan Problems: (1) History of craniotomy (2) Intractable pain (3) Head ache (4) Brain tumor Assessment/Plan awaiting neuro evaluation dc ativen symptomatic treatment neuro evaluation pain management Subjective ROS Limited/Unobtainable: Yes Interval Events: somnolent Allergies: Coded Allergies: No Known Allergies (Unverified , 04/24/18) Objective Last 24 Hour Vital Signs Date Time Temp Pulse Resp B/P (MAP) Pulse Ox O2 Delivery O2 Flow Rate FiO2 04/26/18 13:50 122/69 04/26/18 12:00 96.8 111 18 122/69 (86) 94 04/26/18 09:00 Room Air 04/26/18 08:47 113 114/69 04/26/18 08:00 99.6 113 19 114/69 (84) 97 04/26/18 05:27 140/84 04/26/18 04:00 98.7 99 20 135/81 (99) 98 04/26/18 00:00 98.5 101 18 148/83 (104) 97 04/25/18 21:29 140/88 04/25/18 21:00 Room Air 04/25/18 20:00 97.8 97 20 138/85 (102) 98 04/25/18 16:33 98.8 04/25/18 16:00 100.6 98 20 138/78 (98) 97 04/25/18 15:02 98.3 Intake and Output 04/25/18 04/26/18 19:00 07:00 Intake Total 480 ml 120 ml Output Total 750 ml Balance -270 ml 120 ml Intake Oral 480 ml 120 ml Output Urine Total 750 ml # Voids 3 Objective General Appearance: WD/WN HEENT: normocephalic Respiratory/Chest: chest wall non-tender, lungs clear, normal breath sounds Breasts: no masses Cardiovascular: normal peripheral pulses, normal rate Abdomen: normal bowel sounds, soft, non tender Extremities: no cyanosis Skin: no rash Laboratory Tests 04/26/18 05:35: White Blood Count 6.1, Red Blood Count 4.10L, Hemoglobin 13.7L, Hematocrit 39.7L , Mean Corpuscular Volume 97, Mean Corpuscular Hemoglobin 33.4H, Mean Corpuscular Hemoglobin Concent 34.5, Red Cell Distribution Width 11.2L, Platelet Count 354, Mean Platelet Volume 4.9L, Neutrophils (%) (Auto) 45.1, Lymphocytes (%) (Auto) 26.8, Monocytes (%) (Auto) 12.7H, Eosinophils (%) (Auto) 14.3H, Basophils (%) (Auto) 1.1, Sodium Level 134L, Potassium Level 3.8, Chloride Level 98, Carbon Dioxide Level 24, Anion Gap 12, Blood Urea Nitrogen 9 , Creatinine 0.9, Estimat Glomerular Filtration Rate > 60, Glucose Level 94, Calcium Level 9.1 Current Medications Medications (Trade) Dose Ordered Sig/Obdulia Route PRN Reason Start Time Stop Time Status Last Admin Dose Admin Acetaminophen (Tylenol) 650 mg Q4H PRN ORAL fever 04/24/18 17:15 05/24/18 17:14 04/25/18 16:03 Al Hydroxide/Mg Hydroxide (Mylanta II) 30 ml Q6H PRN ORAL dyspepsia 04/24/18 17:15 05/24/18 17:14 Amlodipine Besylate (Norvasc) 10 mg DAILY ORAL 04/25/18 09:00 05/25/18 08:59 Cefepime HCl 1 gm/ Dextrose 55 ml @ 110 mls/hr Q12H IVPB 04/26/18 17:00 05/03/18 16:59 Dextrose (Dextrose 50%) 25 ml Q30M PRN IV Hypoglycemia 04/24/18 17:15 05/24/18 17:14 Dextrose (Dextrose 50%) 50 ml Q30M PRN IV Hypoglycemia 04/24/18 17:15 05/24/18 17:14 Folic Acid (Folate) 1 mg DAILY ORAL 04/25/18 12:00 05/25/18 11:59 04/26/18 08:47 Gabapentin (Neurontin) 300 mg THREE TIMES A DAY ORAL 04/25/18 18:00 05/25/18 17:59 04/26/18 13:54 Gadobutrol (Gadavist) 7.5 mmol NOW PRN IV Radiology Procedure 04/26/18 13:45 04/30/18 13:45 Heparin Sodium (Porcine) (Heparin 5000 units/ml) 5,000 units EVERY 12 HOURS SUBQ 04/24/18 21:00 05/24/18 20:59 04/26/18 08:50 Hydralazine HCl (Apresoline) 25 mg EVERY 8 HOURS ORAL 04/24/18 22:00 05/24/18 21:59 04/26/18 05:27 Levetiracetam (Keppra) 500 mg EVERY 12 HOURS ORAL 04/24/18 21:00 05/24/18 20:59 04/26/18 08:47 Lorazepam (Ativan 2mg/ml 1ml) 0.5 mg Q4H PRN IV For Anxiety 04/24/18 17:15 05/01/18 17:14 Morphine Sulfate (Morphine Sulfate) 2 mg Q4H PRN IVP For Pain 4-6 04/24/18 17:15 05/01/18 17:14 04/26/18 01:02 Morphine Sulfate (Morphine Sulfate) 4 mg Q4H PRN IVP For Pain 7-10 04/24/18 17:15 05/01/18 17:14 04/26/18 08:46 Ondansetron HCl (Zofran) 4 mg Q6H PRN IVP Nausea & Vomiting 04/24/18 17:15 05/24/18 17:14 04/26/18 09:00 Phenytoin (Dilantin) 100 mg THREE TIMES A DAY ORAL 04/24/18 18:00 05/24/18 17:59 04/26/18 13:54 Polyethylene Glycol (Miralax) 17 gm HSPRN PRN ORAL Constipation 04/24/18 17:15 05/24/18 17:14 Vancomycin HCl (Vanco rx to dose) 1 ea DAILY PRN MISC Per rx protocol 04/26/18 13:45 05/26/18 13:44 Vancomycin HCl 500 mg/Dextrose 110 ml @ 110 mls/hr Q8H IVPB 04/26/18 16:00 05/01/18 15:59 Zolpidem Tartrate (Ambien) 5 mg HSPRN PRN ORAL Insomnia 04/24/18 17:15 05/01/18 17:14 Millicent Armas MD Apr 26, 2018 14:07
--- NOTE | 2018-04-26 15:33 | NUR ---
MRI BRAIN W/WO COMPLETED.
[2018-04-26 16:00] VITALS: BP 134/88
--- NOTE | 2018-04-26 16:21 | NUR ---
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
[2018-04-26] MEDS ORDERED: Solu-MEDROL 125mg Inj IVP SCH (16:30)
[2018-04-26] MEDS: DiphenhydrAMINE 50mg/ml Inj IVP PRN (16:50)
--- NOTE | 2018-04-26 16:57 | Diagnostic Imaging Report ---
Indication: Status post resection of the frontal lobe tumor one month ago. Patient presented with headache. Technique: The head was imaged in a 1.5 June magnet. Sequences obtained include sagittal and axial T1 FLAIR, axial T2 fast spin echo with fat saturation, axial T2 FLAIR, diffusion and ADC map. Gadolinium-enhanced axial and coronal T1 FLAIR obtained also. Comparison: No preoperative imaging available for comparison. Postoperative presentation noncontrast CT 04/24/2018 is noted. Findings: In the lower aspect of the anterior cranial fossa, midline in the area of the anterior hemispheric fissure there is an area of mixed signal measuring about 1.8 cm transversely. On T1-weighted images the mixed signal focus is partially low signal at partially high signal along the rim. On T2-weighted images the focus is primarily high T2 signal. This is compatible with fluid and the subacute blood product methemoglobin. This focus reflects the surgical bed. On post gadolinium images there are enhancement at the peripheral margin of the surgical bed especially at the anterior aspect of the mass into the abdomen along the anterior interhemispheric fissure towards the surface of the frontal lobe. This is to some extent expected since patient has had recent surgery with expect some dural enhancement. It is not possible to exclude the possibility of residual tumor since this was most likely a meningioma that was resected. Meningiomas typically enhance brightly. There is a bifrontal craniotomy present. Deep to the craniotomy flap there is some fluid signal that is bright on T1-weighted images and compatible with met hemoglobin. There is a small amount of bile parenchymal edema in and around the surgical bed in the inferior aspect of the frontal lobe. This is also expected. There is generalized ventricular prominence and prominence of the basal cisterns and cerebral sulci consistent with atrophy. This is mild and probably age-appropriate. Lastly, the study is limited because there is considerable motion related artifact. Bone marrow signal is unremarkable. The corpus callosum and sella appear unremarkable. IMPRESSION: Evidence of recent resection of a mass centered about the inferior aspect of the anterior interhemispheric fissure, a typical location for meningioma. Please correlate with the surgical history. Some enhancement of the dura along the anterior interhemispheric fissure and within the surgical bed is not unexpected given the recent surgery. However, the possibility of residual neoplasm is not excludable. There are no reference studies to compare to the preoperative MRI available. Other notable postsurgical finding includes a small fluid collection within the surgical bed deep to the bifrontal craniotomy flap and mild edema within the frontal lobes.
[2018-04-26] MEDS: Cefepime HCl 1 GM in D5W 55 ML IVPB SCH (17:12)
[2018-04-26] MEDS: Vancomycin 500mg/D5W 110ml IVPB SCH ×4 (17:52→23:26)
--- NOTE | 2018-04-26 18:00 | NUR ---
NURSE NOTES: PT CAME UP FROM MRI BRAIN. PT WITH REDNESS AND RASH, NO SOB OF BREATH OR IN ANY APPARENT DISTRESS AT THIS TIME. RN MADE DR GARCIA AWARE OF POSSIBLE REACTION TO CONTRAST DYE. DR GARCIA WITH ORDER FOR BENADRYL 25MG IVP Q6H PRN AND ONE TIME ORDER OF SOLUMEDROL 120MG IVP. BOTH ADMINISTERED TO PT ORDERED. PT RESTING IN BED. RN MADE SISTER AYSE AWARE AND SISTER STATES PT HAD RASH SINCE YESTERDAY.
--- NOTE | 2018-04-26 18:53 | NUR ---
CASE MANAGEMENT: REVIEW 04/26/2018 SI: INTRACTABLE PAIN,DEHYDRATION T 96.8 HR 104 RR 18 B/P 134/88 SATS 96% ON RA NA 134 IS: HYDRALAZINE PO Q8H KEPPRA PO Q12H NORVASC PO QD CEFEPIME IV Q12H VANCO IV Q8H DILANTIN PO TID GABAPENTIN PO TID MED/SURG STATUS
--- NOTE | 2018-04-26 19:06 | NUR ---
HAND-OFF: Report given to ASHVIN SURESH RN.
--- NOTE | 2018-04-26 19:40 | NUR ---
NURSE NOTES: Patient in bed restless, awake and alert to name, no s/s distress noted. Safety precaution maintained. Bed in lowest position for safety. Educated pt to use call light for assistance. Call light within reach.
[2018-04-26 20:00] VITALS: BP 114/79
[2018-04-26] MEDS ORDERED: NS 500ML ONE (20:48)
[2018-04-26] MEDS ORDERED: Tubing IV Secondary IV ONE (20:48)
[2018-04-27] VITALS: BP 126/84
[2018-04-27] MEDS: Morphine Sulfate 4mg/ml Inj (IV USE ONLY) IVP PRN ×2 (03:29→10:52)
[2018-04-27 04:00] VITALS: BP 130/70
--- NOTE | 2018-04-27 04:20 | NUR ---
NURSE NOTES: Patient in bed awake, restless and agitated, refusing care, keeps trying to get out of the bed. Reorientated, safety precaution maintained, bed alarm on. Made Dr Cat aware, received order for sitter for high fall risk. Called Dr Betancourt, received order for prn ativan 1mg q4 ivp. Order noted and carried out. Will continue to monitor.
[2018-04-27] MEDS: Cefepime HCl 1 GM in D5W 55 ML IVPB SCH ×2 (05:00→17:22)
[2018-04-27] MEDS: HydrALAZINE 25mg tab ORAL SCH ×3 (05:18→21:48)
--- NOTE | 2018-04-27 05:30 | NUR ---
NURSE NOTES: Patient refused AM medication and lab draw. Educated risks and benefits but still refused.
--- NOTE | 2018-04-27 07:22 | NUR ---
HAND-OFF: Report given to Ashley GLOVER.
--- NOTE | 2018-04-27 07:36 | NUR ---
NURSE NOTES: Report received from BELEN Rollins. Pt in bed, awake, eating breakfast, sitter, Billy at bedside, pt A/O x2, no complaints of pain, no apparent distress noted, bed in lowest position, call light within reach.
[2018-04-27 08:00] VITALS: BP 133/88
[2018-04-27 08:45] LABS: BASOPHILS % (AUTO) 2.1 % (0.0-2.0); EOSINOPHILS % (AUTO) 16.7 % (0.0-3.0); HEMATOCRIT 38.6 % (42.0-52.0); HEMOGLOBIN 13.1 G/DL (14.2-18.0); LYMPHOCYTES % (AUTO) 26.4 % (20.0-45.0); MEAN CORPUSCULAR VOLUME 97 FL (80-99); MONOCYTES % (AUTO) 13.3 % (1.0-10.0); NEUTROPHILS % (AUTO) 41.5 % (45.0-75.0); PLATELET COUNT 318 K/UL (150-450); RED BLOOD COUNT 3.98 M/UL (4.70-6.10); RED CELL DISTRIBUTION WIDTH 11.3 % (11.6-14.8); WHITE BLOOD COUNT 5.8 K/UL (4.8-10.8)
[2018-04-27 08:53] LABS: ANION GAP 9 mmol/L (5-15); BLOOD UREA NITROGEN 12 mg/dL (7-18); CALCIUM 9.1 MG/DL (8.5-10.1); CARBON DIOXIDE 27 MMOL/L (21-32); CHLORIDE 99 MMOL/L (98-107); CREATININE 0.9 MG/DL (0.55-1.30); POTASSIUM 3.7 MMOL/L (3.5-5.1); SODIUM 135 MMOL/L (136-145)
[2018-04-27] MEDS: Heparin 5000 units/ml inj SUBQ SCH ×3 (09:00→21:51)
[2018-04-27] MEDS: Phenytoin 100mg cap ORAL SCH ×4 (09:00→17:21)
[2018-04-27] MEDS: Vancomycin 500mg/D5W 110ml IVPB SCH ×4 (09:02→16:18)
--- NOTE | 2018-04-27 09:31 | NUR ---
NURSE NOTES: Pt refused all oral medications. Explained risks of not taking, especially seizure medications, and benefits of take medications. Pt still refused. However, did allow me to administer 0800 dose of Vancomycin IVPB. Notified Dr. Cat
[2018-04-27] MEDS: DiphenhydrAMINE 50mg/ml Inj IVP PRN ×2 (10:10→21:55)
--- NOTE | 2018-04-27 10:28 | NUR ---
NURSE NOTES: Pt's sister at bedside. Pt agreed to take all medications. Also gave Benadryl for redness, itching reaction to contrast dye
--- NOTE | 2018-04-27 11:34 | GI Progress Note ---
Assessment/Plan Problems: (1) Weak ICD Codes: R53.1 - Weakness SNOMED: 12127515 (2) Malnutrition ICD Codes: E46 - Unspecified protein-calorie malnutrition SNOMED: 99420056 (3) Brain tumor ICD Codes: D49.6 - Neoplasm of unspecified behavior of brain SNOMED: 488427461 (4) Transaminitis ICD Codes: R74.0 - Nonspecific elevation of levels of transaminase and lactic acid dehydrogenase [LDH] SNOMED: 037469684, 127951106 (5) Anemia ICD Codes: D64.9 - Anemia, unspecified SNOMED: 685236304 (6) Intractable pain ICD Codes: R52 - Pain, unspecified SNOMED: 32557479 Status: unchanged Status Narrative Discussed with Dr. Kimball. Assessment/Plan Head CT reviewed lipase normal abdominal US reviewed, negative follow Hepatitis panel, negative adv diet OB stool r/o GI bleed monitor H&H, prn transfusions bowel regime ppi fu labs, trend LFTs Outpatient GI procedures The patient was seen and examined at bedside and all new and available data was reviewed in the patients chart. I agree with the above findings, impression and plan. (Patient seen earlier today. Signature stamp does not reflect patient encounter time.). - Barry Kimball MD Subjective Subjective REES Objective Last 24 Hour Vital Signs Date Time Temp Pulse Resp B/P (MAP) Pulse Ox O2 Delivery O2 Flow Rate FiO2 04/27/18 11:22 98.1 04/27/18 10:05 106 133/88 04/27/18 09:00 Room Air 04/27/18 08:00 98.1 106 20 133/88 (103) 97 04/27/18 04:00 98.8 102 18 130/70 (90) 98 04/27/18 00:00 98.0 101 20 126/84 (98) 98 04/26/18 21:52 131/82 04/26/18 21:00 Room Air 04/26/18 20:00 97.6 104 18 114/79 (91) 97 04/26/18 16:00 98.6 104 18 134/88 (103) 96 04/26/18 13:50 122/69 04/26/18 12:00 96.8 111 18 122/69 (86) 94 Intake and Output 04/26/18 04/27/18 19:00 07:00 Intake Total 645 ml 350 ml Balance 645 ml 350 ml Intake Oral 480 ml 240 ml IV Total 165 ml 110 ml # Voids 2 3 Laboratory Tests Test 04/27/18 08:05 White Blood Count 5.8 K/UL (4.8-10.8) Red Blood Count 3.98 M/UL (4.70-6.10) L Hemoglobin 13.1 G/DL (14.2-18.0) L Hematocrit 38.6 % (42.0-52.0) L Mean Corpuscular Volume 97 FL (80-99) Mean Corpuscular Hemoglobin 32.9 PG (27.0-31.0) H Mean Corpuscular Hemoglobin Concent 33.9 G/DL (32.0-36.0) Red Cell Distribution Width 11.3 % (11.6-14.8) L Platelet Count 318 K/UL (150-450) Mean Platelet Volume 5.1 FL (6.5-10.1) L Neutrophils (%) (Auto) 41.5 % (45.0-75.0) L Lymphocytes (%) (Auto) 26.4 % (20.0-45.0) Monocytes (%) (Auto) 13.3 % (1.0-10.0) H Eosinophils (%) (Auto) 16.7 % (0.0-3.0) H Basophils (%) (Auto) 2.1 % (0.0-2.0) H Erythrocyte Sedimentation Rate 42 MM/HR (0-20) H Sodium Level 135 MMOL/L (136-145) L Potassium Level 3.7 MMOL/L (3.5-5.1) Chloride Level 99 MMOL/L (98-107) Carbon Dioxide Level 27 MMOL/L (21-32) Anion Gap 9 mmol/L (5-15) Blood Urea Nitrogen 12 mg/dL (7-18) Creatinine 0.9 MG/DL (0.55-1.30) Estimat Glomerular Filtration Rate > 60 mL/min (>60) Glucose Level 106 MG/DL (74-106) Calcium Level 9.1 MG/DL (8.5-10.1) C-Reactive Protein, Quantitative 16.2 mg/dL (0.00-0.90) H HIV (1&2) Antibody Rapid Negative (NEGATIVE) Microbiology Date/Time Source Procedure Growth Status 04/26/18 20:00 Nasopharynx Influenza Types A,B Antigen (SARAH) - Final Complete 04/26/18 16:30 Head Gram Stain - Final Resulted 04/26/18 16:30 Head Wound Culture Pending Resulted Height (Feet): 5 Height (Inches): 11.00 Weight (Pounds): 145 General Appearance: WD/WN, no apparent distress, alert Cardiovascular: normal rate Respiratory/Chest: normal breath sounds, no respiratory distress Abdominal Exam: normal bowel sounds, non tender, soft Extremities: normal range of motion, non-tender Bhupendra Barriga NP Apr 27, 2018 11:34
[2018-04-27 11:58] VITALS: BP 131/86
--- NOTE | 2018-04-27 12:04 | Pulmonology Progress Note ---
Assessment/Plan Problems: (1) History of craniotomy (2) Intractable pain (3) Head ache (4) Brain tumor Assessment/Plan MRI brain was negaitve awaiting neuro evaluation dc ativen symptomatic treatment neuro evaluation pain management Subjective ROS Limited/Unobtainable: No Constitutional: Reports: no symptoms HEENT: Repors: no symptoms Allergies: Uncoded Allergies: CONTRAST (Allergy, Mild, Rash, 04/26/18) Objective Last 24 Hour Vital Signs Date Time Temp Pulse Resp B/P (MAP) Pulse Ox O2 Delivery O2 Flow Rate FiO2 04/27/18 11:58 99.8 108 17 131/86 (101) 99 04/27/18 11:22 98.1 04/27/18 10:05 106 133/88 04/27/18 09:00 Room Air 04/27/18 08:00 98.1 106 20 133/88 (103) 97 04/27/18 04:00 98.8 102 18 130/70 (90) 98 04/27/18 00:00 98.0 101 20 126/84 (98) 98 04/26/18 21:52 131/82 04/26/18 21:00 Room Air 04/26/18 20:00 97.6 104 18 114/79 (91) 97 04/26/18 16:00 98.6 104 18 134/88 (103) 96 04/26/18 13:50 122/69 Intake and Output 04/26/18 04/27/18 19:00 07:00 Intake Total 645 ml 350 ml Balance 645 ml 350 ml Intake Oral 480 ml 240 ml IV Total 165 ml 110 ml # Voids 2 3 Objective General Appearance: WD/WN HEENT: normocephalic Respiratory/Chest: chest wall non-tender, lungs clear, normal breath sounds Breasts: no masses Cardiovascular: normal peripheral pulses, normal rate Abdomen: normal bowel sounds, soft, non tender Extremities: no cyanosis Skin: no rash Microbiology Date/Time Source Procedure Growth Status 04/26/18 20:00 Nasopharynx Influenza Types A,B Antigen (SARAH) - Final Complete 04/26/18 16:30 Head Gram Stain - Final Resulted 04/26/18 16:30 Head Wound Culture Pending Resulted Laboratory Tests 04/27/18 08:05: White Blood Count 5.8, Red Blood Count 3.98L, Hemoglobin 13.1L, Hematocrit 38.6L , Mean Corpuscular Volume 97, Mean Corpuscular Hemoglobin 32.9H, Mean Corpuscular Hemoglobin Concent 33.9, Red Cell Distribution Width 11.3L, Platelet Count 318, Mean Platelet Volume 5.1L, Neutrophils (%) (Auto) 41.5L, Lymphocytes (%) (Auto) 26.4, Monocytes (%) (Auto) 13.3H, Eosinophils (%) (Auto) 16.7H, Basophils (%) (Auto) 2.1H, Erythrocyte Sedimentation Rate 42H, Sodium Level 135L, Potassium Level 3.7, Chloride Level 99, Carbon Dioxide Level 27, Anion Gap 9, Blood Urea Nitrogen 12, Creatinine 0.9, Estimat Glomerular Filtration Rate > 60, Glucose Level 106, Calcium Level 9.1, C-Reactive Protein, Quantitative 16.2H, HIV (1&2) Antibody Rapid Negative Current Medications Medications (Trade) Dose Ordered Sig/Obdulia Route PRN Reason Start Time Stop Time Status Last Admin Dose Admin Acetaminophen (Tylenol) 650 mg Q4H PRN ORAL fever 04/24/18 17:15 05/24/18 17:14 04/25/18 16:03 Al Hydroxide/Mg Hydroxide (Mylanta II) 30 ml Q6H PRN ORAL dyspepsia 04/24/18 17:15 05/24/18 17:14 Amlodipine Besylate (Norvasc) 10 mg DAILY ORAL 04/25/18 09:00 05/25/18 08:59 04/27/18 10:05 Cefepime HCl 1 gm/ Dextrose 55 ml @ 110 mls/hr Q12H IVPB 04/26/18 17:00 05/03/18 16:59 04/26/18 17:12 Dextrose (Dextrose 50%) 25 ml Q30M PRN IV Hypoglycemia 04/24/18 17:15 05/24/18 17:14 Dextrose (Dextrose 50%) 50 ml Q30M PRN IV Hypoglycemia 04/24/18 17:15 05/24/18 17:14 Diphenhydramine HCl (Benadryl) 25 mg Q6H PRN IVP Itching 04/26/18 16:30 05/26/18 16:29 04/27/18 10:10 Folic Acid (Folate) 1 mg DAILY ORAL 04/25/18 12:00 05/25/18 11:59 04/27/18 10:05 Gabapentin (Neurontin) 300 mg THREE TIMES A DAY ORAL 04/25/18 18:00 05/25/18 17:59 04/27/18 10:04 Gadobutrol (Gadavist) 7.5 mmol NOW PRN IV Radiology Procedure 04/26/18 13:45 04/30/18 13:45 Heparin Sodium (Porcine) (Heparin 5000 units/ml) 5,000 units EVERY 12 HOURS SUBQ 04/24/18 21:00 05/24/18 20:59 04/27/18 10:07 Hydralazine HCl (Apresoline) 25 mg EVERY 8 HOURS ORAL 04/24/18 22:00 05/24/18 21:59 04/26/18 21:52 Levetiracetam (Keppra) 500 mg EVERY 12 HOURS ORAL 04/24/18 21:00 05/24/18 20:59 04/27/18 10:04 Lorazepam (Ativan 2mg/ml 1ml) 1 mg Q6H PRN IVP For Anxiety 04/27/18 04:15 05/04/18 04:14 Morphine Sulfate (Morphine Sulfate) 2 mg Q4H PRN IVP For Pain 4-6 04/24/18 17:15 05/01/18 17:14 04/26/18 01:02 Morphine Sulfate (Morphine Sulfate) 4 mg Q4H PRN IVP For Pain 7-10 04/24/18 17:15 05/01/18 17:14 04/27/18 10:52 Ondansetron HCl (Zofran) 4 mg Q6H PRN IVP Nausea & Vomiting 04/24/18 17:15 05/24/18 17:14 04/26/18 09:00 Phenytoin (Dilantin) 100 mg THREE TIMES A DAY ORAL 04/24/18 18:00 05/24/18 17:59 04/27/18 10:05 Polyethylene Glycol (Miralax) 17 gm HSPRN PRN ORAL Constipation 04/24/18 17:15 05/24/18 17:14 Vancomycin HCl (Vanco rx to dose) 1 ea DAILY PRN MISC Per rx protocol 04/26/18 13:45 05/26/18 13:44 Vancomycin HCl 500 mg/Dextrose 110 ml @ 110 mls/hr Q8H IVPB 04/26/18 16:00 05/01/18 15:59 04/27/18 09:02 Zolpidem Tartrate (Ambien) 5 mg HSPRN PRN ORAL Insomnia 04/24/18 17:15 05/01/18 17:14 Millicent Armas MD Apr 27, 2018 12:04
--- NOTE | 2018-04-27 14:17 | General Progress Note ---
Assessment/Plan Problem List: (1) Head ache ICD Codes: R51 - Headache SNOMED: 59213008 (2) Weak ICD Codes: R53.1 - Weakness SNOMED: 47972302 (3) HTN (hypertension) ICD Codes: I10 - Essential (primary) hypertension SNOMED: 52481355 (4) Malnutrition ICD Codes: E46 - Unspecified protein-calorie malnutrition SNOMED: 69761745 (5) Epilepsy ICD Codes: G40.909 - Epilepsy, unspecified, not intractable, without status epilepticus SNOMED: 35355248 (6) Intractable pain ICD Codes: R52 - Pain, unspecified SNOMED: 05547721 Status: unchanged Assessment/Plan pt siet pain control neuro psyc eval cbc bmp am dc plan if clear Subjective Constitutional: Reports: weakness Allergies: Uncoded Allergies: CONTRAST (Allergy, Mild, Rash, 04/26/18) All Systems: reviewed and negative except above Subjective sleepy calm Objective Last 24 Hour Vital Signs Date Time Temp Pulse Resp B/P (MAP) Pulse Ox O2 Delivery O2 Flow Rate FiO2 04/27/18 12:56 131/86 04/27/18 11:58 99.8 108 17 131/86 (101) 99 04/27/18 11:22 98.1 04/27/18 10:05 106 133/88 04/27/18 09:00 Room Air 04/27/18 08:00 98.1 106 20 133/88 (103) 97 04/27/18 04:00 98.8 102 18 130/70 (90) 98 04/27/18 00:00 98.0 101 20 126/84 (98) 98 04/26/18 21:52 131/82 04/26/18 21:00 Room Air 04/26/18 20:00 97.6 104 18 114/79 (91) 97 04/26/18 16:00 98.6 104 18 134/88 (103) 96 Intake and Output 04/26/18 04/27/18 19:00 07:00 Intake Total 645 ml 350 ml Balance 645 ml 350 ml Intake Oral 480 ml 240 ml IV Total 165 ml 110 ml # Voids 2 3 Laboratory Tests 04/27/18 08:05: White Blood Count 5.8, Red Blood Count 3.98L, Hemoglobin 13.1L, Hematocrit 38.6L , Mean Corpuscular Volume 97, Mean Corpuscular Hemoglobin 32.9H, Mean Corpuscular Hemoglobin Concent 33.9, Red Cell Distribution Width 11.3L, Platelet Count 318, Mean Platelet Volume 5.1L, Neutrophils (%) (Auto) 41.5L, Lymphocytes (%) (Auto) 26.4, Monocytes (%) (Auto) 13.3H, Eosinophils (%) (Auto) 16.7H, Basophils (%) (Auto) 2.1H, Erythrocyte Sedimentation Rate 42H, Sodium Level 135L, Potassium Level 3.7, Chloride Level 99, Carbon Dioxide Level 27, Anion Gap 9, Blood Urea Nitrogen 12, Creatinine 0.9, Estimat Glomerular Filtration Rate > 60, Glucose Level 106, Calcium Level 9.1, C-Reactive Protein, Quantitative 16.2H, HIV (1&2) Antibody Rapid Negative Height (Feet): 5 Height (Inches): 11.00 Weight (Pounds): 145 General Appearance: lethargic EENT: normal ENT inspection Neck: normal alignment Cardiovascular: normal peripheral pulses, normal rate, regular rhythm Respiratory/Chest: chest wall non-tender, lungs clear, normal breath sounds Abdomen: normal bowel sounds, non tender, soft Extremities: normal inspection Edema: no edema noted Arm (L), no edema noted Arm (R), no edema noted Leg (L), no edema noted Leg (R), no edema noted Pedal (L), no edema noted Pedal (R), no edema noted Generalized Neurologic: motor weakness Skin: normal pigmentation, warm/dry Neri Cat DO Apr 27, 2018 14:16
--- NOTE | 2018-04-27 14:21 | NUR ---
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 99.8 HR 108 RR 17 B/P 131/86 RA 98% ESR 42 C-REACTIVE 16.2 IS: CEFEPIME IV VIBRAMYCIN PO DILANTIN KEPPRA HYDRALAZINE PO MED/SURG STATUS
--- NOTE | 2018-04-27 15:19 | Infectious Diseases Prog Note ---
Assessment/Plan Assessment/Plan Assessment: Sepsis; improving Low grade fever, improving -wound cx craniotomy incision: S. aureus -bcx p -influenza sc neg Headache- MRI shows post-surgical findings, no obvious abscess -04/26 MRI Brain w/wo: Evidence of recent resection of a mass centered about the inferior aspect of the anterior interhemispheric fissure, a typical location for meningioma. Please correlate with the surgical history. Some enhancement of the dura along the anterior interhemispheric fissure and within the surgical bed is not unexpected given the recent surgery. However, the possibility of residual neoplasm is not excludable. There are no reference studies to compare to the preoperative MRI available. Other notable postsurgical finding includes a small fluid collection within the surgical bed deep to the bifrontal craniotomy flap and mild edema within the frontal lobes -CT brain wo: Postsurgical changes associated with relatively recent bifrontal craniotomy likely resection of a mass in the area of the interhemispheric fissure. 6 mm thick mixed attenuation extra-axial blood noted within the surgical bed. Please correlate with the operative report and comparison with prior studies is strongly recommended. -ESR 42, CRP 16.2 -HIV ag/ab neg Recent Brain tumor removal (1 month ago) No leukocytosis Elevated LFTs, improving -Abd US: No acute findings. -Acute hep panel neg seizure disorder GERD tobacco use Drug rash-?culprit (present before antibiotics) Plan: -Continue empiric IV Vancomycin and Cefepime #2 for now pending cutlures -f/u Bcx x2, influenza sc -If ongoing severe REES, will benefit of Lumbar puncture -f/u cx -Monitor CBC/CMP, temperatures -management of drug rash per primary Thank you for this consultation. Will continue to follow along with you. Discussed with RN. Subjective Allergies: Uncoded Allergies: CONTRAST (Allergy, Mild, Rash, 04/26/18) Subjective afebrile >48hrs no leukocytosis Bcx NTD Objective Vital Signs Last 24 Hour Vital Signs Date Time Temp Pulse Resp B/P (MAP) Pulse Ox O2 Delivery O2 Flow Rate FiO2 04/27/18 12:56 131/86 04/27/18 11:58 99.8 108 17 131/86 (101) 99 04/27/18 11:22 98.1 04/27/18 10:05 106 133/88 04/27/18 09:00 Room Air 2/28/19 08:00 98.1 106 20 133/88 (103) 97 04/27/18 04:00 98.8 102 18 130/70 (90) 98 04/27/18 00:00 98.0 101 20 126/84 (98) 98 04/26/18 21:52 131/82 04/26/18 21:00 Room Air 04/26/18 20:00 97.6 104 18 114/79 (91) 97 04/26/18 16:00 98.6 104 18 134/88 (103) 96 Height (Feet): 5 Height (Inches): 11.00 Weight (Pounds): 145 Objective HEAD: craniotomy scar with some superficial ulceration on R left side- no signs of infection GENERAL: Anxious in bed, oriented x2, in no acute distress. CARDIOVASCULAR: No murmur. LUNGS: Distant and clear. ABDOMEN: Bowel sounds positive. Nontender. Nondistended. EXTREMITIES: No cyanosis, clubbing, or edema. NEUROLOGIC: The patient moves all extremities. Slight weakness in extremities. Skin: maculopapular rash in torso, arms Microbiology Date/Time Source Procedure Growth Status 04/26/18 20:00 Nasopharynx Influenza Types A,B Antigen (SARAH) - Final Complete 04/26/18 16:30 Head Gram Stain - Final Resulted 04/26/18 16:30 Wound Culture - Preliminary Staphylococcus Aureus Resulted Laboratory Tests Test 04/27/18 08:05 White Blood Count 5.8 K/UL (4.8-10.8) Red Blood Count 3.98 M/UL (4.70-6.10) L Hemoglobin 13.1 G/DL (14.2-18.0) L Hematocrit 38.6 % (42.0-52.0) L Mean Corpuscular Volume 97 FL (80-99) Mean Corpuscular Hemoglobin 32.9 PG (27.0-31.0) H Mean Corpuscular Hemoglobin Concent 33.9 G/DL (32.0-36.0) Red Cell Distribution Width 11.3 % (11.6-14.8) L Platelet Count 318 K/UL (150-450) Mean Platelet Volume 5.1 FL (6.5-10.1) L Neutrophils (%) (Auto) 41.5 % (45.0-75.0) L Lymphocytes (%) (Auto) 26.4 % (20.0-45.0) Monocytes (%) (Auto) 13.3 % (1.0-10.0) H Eosinophils (%) (Auto) 16.7 % (0.0-3.0) H Basophils (%) (Auto) 2.1 % (0.0-2.0) H Erythrocyte Sedimentation Rate 42 MM/HR (0-20) H Sodium Level 135 MMOL/L (136-145) L Potassium Level 3.7 MMOL/L (3.5-5.1) Chloride Level 99 MMOL/L (98-107) Carbon Dioxide Level 27 MMOL/L (21-32) Anion Gap 9 mmol/L (5-15) Blood Urea Nitrogen 12 mg/dL (7-18) Creatinine 0.9 MG/DL (0.55-1.30) Estimat Glomerular Filtration Rate > 60 mL/min (>60) Glucose Level 106 MG/DL (74-106) Calcium Level 9.1 MG/DL (8.5-10.1) C-Reactive Protein, Quantitative 16.2 mg/dL (0.00-0.90) H HIV (1&2) Antibody Rapid Negative (NEGATIVE) Current Medications Medications (Trade) Dose Ordered Sig/Obdulia Route PRN Reason Start Time Stop Time Status Last Admin Dose Admin Acetaminophen (Tylenol) 650 mg Q4H PRN ORAL fever 04/24/18 17:15 05/24/18 17:14 04/25/18 16:03 Al Hydroxide/Mg Hydroxide (Mylanta II) 30 ml Q6H PRN ORAL dyspepsia 04/24/18 17:15 05/24/18 17:14 Amlodipine Besylate (Norvasc) 10 mg DAILY ORAL 04/25/18 09:00 05/25/18 08:59 04/27/18 10:05 Cefepime HCl 1 gm/ Dextrose 55 ml @ 110 mls/hr Q12H IVPB 04/26/18 17:00 05/03/18 16:59 04/26/18 17:12 Dextrose (Dextrose 50%) 25 ml Q30M PRN IV Hypoglycemia 04/24/18 17:15 05/24/18 17:14 Dextrose (Dextrose 50%) 50 ml Q30M PRN IV Hypoglycemia 04/24/18 17:15 05/24/18 17:14 Diphenhydramine HCl (Benadryl) 25 mg Q6H PRN IVP Itching 04/26/18 16:30 05/26/18 16:29 04/27/18 10:10 Folic Acid (Folate) 1 mg DAILY ORAL 04/25/18 12:00 05/25/18 11:59 04/27/18 10:05 Gabapentin (Neurontin) 300 mg THREE TIMES A DAY ORAL 04/25/18 18:00 05/25/18 17:59 04/27/18 12:56 Gadobutrol (Gadavist) 7.5 mmol NOW PRN IV Radiology Procedure 04/26/18 13:45 04/30/18 13:45 Heparin Sodium (Porcine) (Heparin 5000 units/ml) 5,000 units EVERY 12 HOURS SUBQ 04/24/18 21:00 05/24/18 20:59 04/27/18 10:07 Hydralazine HCl (Apresoline) 25 mg EVERY 8 HOURS ORAL 04/24/18 22:00 05/24/18 21:59 04/27/18 12:56 Levetiracetam (Keppra) 500 mg EVERY 12 HOURS ORAL 04/24/18 21:00 05/24/18 20:59 04/27/18 10:04 Lorazepam (Ativan 2mg/ml 1ml) 1 mg Q6H PRN IVP For Anxiety 04/27/18 04:15 05/04/18 04:14 Morphine Sulfate (Morphine Sulfate) 2 mg Q4H PRN IVP For Pain 4-6 04/24/18 17:15 05/01/18 17:14 04/26/18 01:02 Morphine Sulfate (Morphine Sulfate) 4 mg Q4H PRN IVP For Pain 7-10 04/24/18 17:15 05/01/18 17:14 04/27/18 10:52 Ondansetron HCl (Zofran) 4 mg Q6H PRN IVP Nausea & Vomiting 04/24/18 17:15 05/24/18 17:14 04/26/18 09:00 Phenytoin (Dilantin) 100 mg THREE TIMES A DAY ORAL 04/24/18 18:00 05/24/18 17:59 04/27/18 12:56 Polyethylene Glycol (Miralax) 17 gm HSPRN PRN ORAL Constipation 04/24/18 17:15 05/24/18 17:14 Vancomycin HCl (Vanco rx to dose) 1 ea DAILY PRN MISC Per rx protocol 04/26/18 13:45 05/26/18 13:44 Vancomycin HCl 500 mg/Dextrose 110 ml @ 110 mls/hr Q8H IVPB 04/26/18 16:00 05/01/18 15:59 04/27/18 09:02 Zolpidem Tartrate (Ambien) 5 mg HSPRN PRN ORAL Insomnia 04/24/18 17:15 05/01/18 17:14 Kelsie Ibarra M.D. Apr 27, 2018 15:19
--- NOTE | 2018-04-27 15:27 | General Progress Note ---
Assessment/Plan Assessment/Plan (1) Headache (2) Brain neoplasm s/p craniotomy and resection Patient to be continued on Neurontin We will discontinue the Morphine and start Percocet 5/325mg PO 1 tab Q4HPRN severe pain. D/w Dr. Delarosa and he concurred. Subjective Date patient seen: Apr 27, 2018 Time patient seen: 03:00 - pm Allergies: Uncoded Allergies: CONTRAST (Allergy, Mild, Rash, 04/26/18) Subjective REVIEW OF SYSTEMS: Denies rash, fever, chills, sweating, dizziness, drowsiness, blurred vision, sore throat, or change in his weight. No shortness of breath, chest pain, palpitations, or cough. No nausea, vomiting, diarrhea, or blood in stool or urine. He complains of headaches. SUBJECTIVE: Patient is reporting pain has reduced on the Neurontin D/w him about changing the Morphine to Percocet and he understands. Objective Last 24 Hour Vital Signs Date Time Temp Pulse Resp B/P (MAP) Pulse Ox O2 Delivery O2 Flow Rate FiO2 04/27/18 12:56 131/86 04/27/18 11:58 99.8 108 17 131/86 (101) 99 04/27/18 11:22 98.1 04/27/18 10:05 106 133/88 04/27/18 09:00 Room Air 04/27/18 08:00 98.1 106 20 133/88 (103) 97 04/27/18 04:00 98.8 102 18 130/70 (90) 98 04/27/18 00:00 98.0 101 20 126/84 (98) 98 04/26/18 21:52 131/82 04/26/18 21:00 Room Air 04/26/18 20:00 97.6 104 18 114/79 (91) 97 04/26/18 16:00 98.6 104 18 134/88 (103) 96 Intake and Output 04/26/18 04/27/18 19:00 07:00 Intake Total 645 ml 350 ml Balance 645 ml 350 ml Intake Oral 480 ml 240 ml IV Total 165 ml 110 ml # Voids 2 3 Laboratory Tests 04/27/18 08:05: White Blood Count 5.8, Red Blood Count 3.98L, Hemoglobin 13.1L, Hematocrit 38.6L , Mean Corpuscular Volume 97, Mean Corpuscular Hemoglobin 32.9H, Mean Corpuscular Hemoglobin Concent 33.9, Red Cell Distribution Width 11.3L, Platelet Count 318, Mean Platelet Volume 5.1L, Neutrophils (%) (Auto) 41.5L, Lymphocytes (%) (Auto) 26.4, Monocytes (%) (Auto) 13.3H, Eosinophils (%) (Auto) 16.7H, Basophils (%) (Auto) 2.1H, Erythrocyte Sedimentation Rate 42H, Sodium Level 135L, Potassium Level 3.7, Chloride Level 99, Carbon Dioxide Level 27, Anion Gap 9, Blood Urea Nitrogen 12, Creatinine 0.9, Estimat Glomerular Filtration Rate > 60, Glucose Level 106, Calcium Level 9.1, C-Reactive Protein, Quantitative 16.2H, HIV (1&2) Antibody Rapid Negative Height (Feet): 5 Height (Inches): 11.00 Weight (Pounds): 145 Objective GENERAL: Alert, awake, and oriented. LUNGS: Clear bilaterally. HEART: S1 and S2, regular. ABDOMEN: Soft and nontender. EXTREMITIES: No cyanosis. No clubbing. No edema. NEURO: No changes. Albert Hoyos Apr 27, 2018 15:27
[2018-04-27 15:52] VITALS: BP 133/70
[2018-04-27] MEDS ORDERED: Vancomycin 750mg/NS 275ml IVPB SCH ×2 (17:00)
--- NOTE | 2018-04-27 19:39 | NUR ---
HAND-OFF: Report given to BELEN Wilson.
--- NOTE | 2018-04-27 19:40 | NUR ---
NURSE NOTES: Received patient in bed. A&OX2 with confusion. IV site patent and intact. Sitter at bedside. Dressing on head noted, dry and intact. Bed in lowest position. Call light within reach. Will continue to monitor.
[2018-04-27 20:00] VITALS: BP 124/81
[2018-04-27] MEDS: Vancomycin 750mg/NS 275ml IVPB SCH ×2 (20:20)
[2018-04-28] VITALS: BP 131/81
[2018-04-28] MEDS: oxyCODONE HCL/Acetaminophen 5/325mg ORAL PRN ×2 (00:23→05:29)
[2018-04-28] MEDS: Vancomycin 750mg/NS 275ml IVPB SCH ×4 (03:13→13:40)
[2018-04-28 04:00] VITALS: BP 134/90
[2018-04-28] MEDS: HydrALAZINE 25mg tab ORAL SCH ×4 (05:02→22:00)
[2018-04-28] MEDS: Cefepime HCl 1 GM in D5W 55 ML IVPB SCH ×2 (05:02→17:24)
[2018-04-28] MEDS: DiphenhydrAMINE 50mg/ml Inj IVP PRN (05:32)
--- NOTE | 2018-04-28 07:12 | NUR ---
HAND-OFF: Report given to Bobbi Lindo RN.
[2018-04-28 07:14] LABS: EOSINOPHILS % (AUTO) 16.4 % (0.0-3.0); HEMATOCRIT 38.5 % (42.0-52.0); HEMOGLOBIN 13.5 G/DL (14.2-18.0); LYMPHOCYTES % (AUTO) 16.1 % (20.0-45.0); MEAN CORPUSCULAR VOLUME 96 FL (80-99); MONOCYTES % (AUTO) 13.5 % (1.0-10.0); PLATELET COUNT 293 K/UL (150-450); RED BLOOD COUNT 4.02 M/UL (4.70-6.10); RED CELL DISTRIBUTION WIDTH 11.4 % (11.6-14.8); WHITE BLOOD COUNT 8.3 K/UL (4.8-10.8)
[2018-04-28 07:33] LABS: ALANINE AMINOTRANSFERASE 216 U/L (12-78); ALBUMIN 2.9 G/DL (3.4-5.0); ALBUMIN/GLOBULIN RATIO 0.8 (1.0-2.7); ALKALINE PHOSPHATASE 854 U/L (46-116); ANION GAP 9 mmol/L (5-15); ASPARTATE AMINO TRANSFERASE 157 U/L (15-37); BILIRUBIN,TOTAL 3.6 MG/DL (0.2-1.0); BLOOD UREA NITROGEN 10 mg/dL (7-18); CALCIUM 8.6 MG/DL (8.5-10.1); CARBON DIOXIDE 26 MMOL/L (21-32); CHLORIDE 98 MMOL/L (98-107); CREATININE 0.9 MG/DL (0.55-1.30); POTASSIUM 3.6 MMOL/L (3.5-5.1); SODIUM 133 MMOL/L (136-145)
[2018-04-28 07:34] LABS: BILIRUBIN,DIRECT 2.7 MG/DL (0.0-0.3)
--- NOTE | 2018-04-28 07:51 | NUR ---
NURSE NOTES: pt in bed with no sob nor in any form of distress noted. sitter at bedside. bed in lowest position. Call light within reach at all time. denies any pain. will continue to monitor
[2018-04-28 08:00] VITALS: BP 130/88
[2018-04-28] MEDS: Phenytoin 100mg cap ORAL SCH ×3 (08:28→17:25)
[2018-04-28] MEDS: Heparin 5000 units/ml inj SUBQ SCH ×2 (08:30→21:28)
--- NOTE | 2018-04-28 09:01 | General Progress Note ---
Assessment/Plan Assessment/Plan (1) Headache (2) Brain neoplasm s/p craniotomy and resection Patient to be continued on Neurontin and Percocet. D/w Dr. Delarosa and he concurred. Subjective Date patient seen: Apr 28, 2018 Time patient seen: 08:00 - am Allergies: Uncoded Allergies: CONTRAST (Allergy, Mild, Rash, 04/26/18) Subjective REVIEW OF SYSTEMS: Denies rash, fever, chills, sweating, dizziness, drowsiness, blurred vision, sore throat, or change in his weight. No shortness of breath, chest pain, palpitations, or cough. No nausea, vomiting, diarrhea, or blood in stool or urine. He complains of headaches. SUBJECTIVE: Patient has been tolerating the pain on the Percocet and Neurontin. He has no new complaints at this time. Objective Last 24 Hour Vital Signs Date Time Temp Pulse Resp B/P (MAP) Pulse Ox O2 Delivery O2 Flow Rate FiO2 04/28/18 08:28 100 130/88 04/28/18 08:00 98.9 100 19 130/88 (102) 99 04/28/18 05:33 99.1 04/28/18 05:33 99.1 04/28/18 05:02 134/90 04/28/18 04:00 100.6 108 19 134/90 (105) 100 04/28/18 00:00 100.1 106 17 131/81 (98) 99 04/27/18 22:18 100.1 04/27/18 21:48 124/81 04/27/18 21:00 Room Air 04/27/18 20:00 100.7 112 18 124/81 (95) 96 04/27/18 15:52 99.9 71 19 133/70 (91) 96 04/27/18 12:56 131/86 04/27/18 11:58 99.8 108 17 131/86 (101) 99 04/27/18 11:22 98.1 04/27/18 10:05 106 133/88 04/27/18 09:00 Room Air Intake and Output 04/27/18 04/28/18 19:00 07:00 Intake Total 720 ml 1116.666 ml Output Total 650 ml Balance 720 ml 466.666 ml Intake Oral 720 ml 420 ml IV Total 696.666 ml Output Urine Total 650 ml # Voids 4 2 Laboratory Tests 04/27/18 15:25: Vancomycin Level Trough 4.4L 04/28/18 05:25: White Blood Count 8.3, Red Blood Count 4.02L, Hemoglobin 13.5L, Hematocrit 38.5L , Mean Corpuscular Volume 96, Mean Corpuscular Hemoglobin 33.5H, Mean Corpuscular Hemoglobin Concent 35.0, Red Cell Distribution Width 11.4L, Platelet Count 293, Mean Platelet Volume 5.5L, Neutrophils (%) (Auto) 53.0, Lymphocytes (%) (Auto) 16.1L, Monocytes (%) (Auto) 13.5H, Eosinophils (%) (Auto ) 16.4H, Basophils (%) (Auto) 1.0, Sodium Level 133L, Potassium Level 3.6, Chloride Level 98, Carbon Dioxide Level 26, Anion Gap 9, Blood Urea Nitrogen 10 , Creatinine 0.9, Estimat Glomerular Filtration Rate > 60, Glucose Level 104, Calcium Level 8.6, Total Bilirubin 3.6H, Direct Bilirubin 2.7H, Aspartate Amino Transf (AST/SGOT) 157H, Alanine Aminotransferase (ALT/SGPT) 216H, Alkaline Phosphatase 854H, Total Protein 6.6, Albumin 2.9L, Globulin 3.7, Albumin/ Globulin Ratio 0.8L Height (Feet): 5 Height (Inches): 11.00 Weight (Pounds): 145 Objective GENERAL: Alert, awake, and oriented. LUNGS: Clear bilaterally. HEART: S1 and S2, regular. ABDOMEN: Soft and nontender. EXTREMITIES: No cyanosis. No clubbing. No edema. NEURO: No changes. Albert Hoyos Apr 28, 2018 09:01
--- NOTE | 2018-04-28 11:32 | GI Progress Note ---
Assessment/Plan Problems: (1) Weak ICD Codes: R53.1 - Weakness SNOMED: 71585147 (2) Malnutrition ICD Codes: E46 - Unspecified protein-calorie malnutrition SNOMED: 61085286 (3) Brain tumor ICD Codes: D49.6 - Neoplasm of unspecified behavior of brain SNOMED: 027893636 (4) Transaminitis ICD Codes: R74.0 - Nonspecific elevation of levels of transaminase and lactic acid dehydrogenase [LDH] SNOMED: 846915547, 010058388 (5) Anemia ICD Codes: D64.9 - Anemia, unspecified SNOMED: 129589461 (6) Intractable pain ICD Codes: R52 - Pain, unspecified SNOMED: 53980266 Status: unchanged Status Narrative Discussed with Dr. Kimball. Assessment/Plan Head CT reviewed lipase normal abdominal US reviewed, negative follow Hepatitis panel, negative adv diet OB stool r/o GI bleed monitor H&H, prn transfusions bowel regime ppi fu labs, trend LFTs Outpatient GI procedures The patient was seen and examined at bedside and all new and available data was reviewed in the patients chart. I agree with the above findings, impression and plan. (Patient seen earlier today. Signature stamp does not reflect patient encounter time.). - Brary Kimball MD Subjective Gastrointestinal/Abdominal: Reports: no symptoms Subjective REES Objective Last 24 Hour Vital Signs Date Time Temp Pulse Resp B/P (MAP) Pulse Ox O2 Delivery O2 Flow Rate FiO2 04/28/18 09:28 Room Air 04/28/18 08:28 100 130/88 04/28/18 08:00 98.9 100 19 130/88 (102) 99 04/28/18 05:33 99.1 04/28/18 05:33 99.1 04/28/18 05:02 134/90 04/28/18 04:00 100.6 108 19 134/90 (105) 100 04/28/18 00:00 100.1 106 17 131/81 (98) 99 04/27/18 22:18 100.1 04/27/18 21:48 124/81 04/27/18 21:00 Room Air 04/27/18 20:00 100.7 112 18 124/81 (95) 96 04/27/18 15:52 99.9 71 19 133/70 (91) 96 04/27/18 12:56 131/86 04/27/18 11:58 99.8 108 17 131/86 (101) 99 Intake and Output 04/27/18 04/28/18 19:00 07:00 Intake Total 720 ml 1116.666 ml Output Total 650 ml Balance 720 ml 466.666 ml Intake Oral 720 ml 420 ml IV Total 696.666 ml Output Urine Total 650 ml # Voids 4 2 Laboratory Tests Test 04/27/18 15:25 04/28/18 05:25 Vancomycin Level Trough 4.4 ug/mL (5.0-12.0) L White Blood Count 8.3 K/UL (4.8-10.8) Red Blood Count 4.02 M/UL (4.70-6.10) L Hemoglobin 13.5 G/DL (14.2-18.0) L Hematocrit 38.5 % (42.0-52.0) L Mean Corpuscular Volume 96 FL (80-99) Mean Corpuscular Hemoglobin 33.5 PG (27.0-31.0) H Mean Corpuscular Hemoglobin Concent 35.0 G/DL (32.0-36.0) Red Cell Distribution Width 11.4 % (11.6-14.8) L Platelet Count 293 K/UL (150-450) Mean Platelet Volume 5.5 FL (6.5-10.1) L Neutrophils (%) (Auto) 53.0 % (45.0-75.0) Lymphocytes (%) (Auto) 16.1 % (20.0-45.0) L Monocytes (%) (Auto) 13.5 % (1.0-10.0) H Eosinophils (%) (Auto) 16.4 % (0.0-3.0) H Basophils (%) (Auto) 1.0 % (0.0-2.0) Sodium Level 133 MMOL/L (136-145) L Potassium Level 3.6 MMOL/L (3.5-5.1) Chloride Level 98 MMOL/L (98-107) Carbon Dioxide Level 26 MMOL/L (21-32) Anion Gap 9 mmol/L (5-15) Blood Urea Nitrogen 10 mg/dL (7-18) Creatinine 0.9 MG/DL (0.55-1.30) Estimat Glomerular Filtration Rate > 60 mL/min (>60) Glucose Level 104 MG/DL (74-106) Calcium Level 8.6 MG/DL (8.5-10.1) Total Bilirubin 3.6 MG/DL (0.2-1.0) H Direct Bilirubin 2.7 MG/DL (0.0-0.3) H Aspartate Amino Transf (AST/SGOT) 157 U/L (15-37) H Alanine Aminotransferase (ALT/SGPT) 216 U/L (12-78) H Alkaline Phosphatase 854 U/L (46-116) H Total Protein 6.6 G/DL (6.4-8.2) Albumin 2.9 G/DL (3.4-5.0) L Globulin 3.7 g/dL Albumin/Globulin Ratio 0.8 (1.0-2.7) L Height (Feet): 5 Height (Inches): 11.00 Weight (Pounds): 145 General Appearance: WD/WN, no apparent distress, alert Cardiovascular: normal rate Respiratory/Chest: normal breath sounds, no respiratory distress Abdominal Exam: normal bowel sounds, non tender, soft Extremities: non-tender Bhupendra Barriga NP Apr 28, 2018 11:32
[2018-04-28 12:00] VITALS: BP 133/75
--- NOTE | 2018-04-28 13:12 | General Progress Note ---
Assessment/Plan Problem List: (1) Head ache ICD Codes: R51 - Headache SNOMED: 33762508 (2) Weak ICD Codes: R53.1 - Weakness SNOMED: 93897649 (3) HTN (hypertension) ICD Codes: I10 - Essential (primary) hypertension SNOMED: 70284055 (4) Malnutrition ICD Codes: E46 - Unspecified protein-calorie malnutrition SNOMED: 61976728 (5) Epilepsy ICD Codes: G40.909 - Epilepsy, unspecified, not intractable, without status epilepticus SNOMED: 39872534 (6) Intractable pain ICD Codes: R52 - Pain, unspecified SNOMED: 33631182 Status: unchanged Assessment/Plan pt siet pain control neuro psyc eval cbc bmp am dc plan if clear Subjective Constitutional: Reports: weakness Allergies: Uncoded Allergies: CONTRAST (Allergy, Mild, Rash, 04/26/18) All Systems: reviewed and negative except above Subjective sleepy calm Objective Last 24 Hour Vital Signs Date Time Temp Pulse Resp B/P (MAP) Pulse Ox O2 Delivery O2 Flow Rate FiO2 04/28/18 09:28 Room Air 04/28/18 08:28 100 130/88 04/28/18 08:00 98.9 100 19 130/88 (102) 99 04/28/18 05:33 99.1 04/28/18 05:33 99.1 04/28/18 05:02 134/90 04/28/18 04:00 100.6 108 19 134/90 (105) 100 04/28/18 00:00 100.1 106 17 131/81 (98) 99 04/27/18 22:18 100.1 04/27/18 21:48 124/81 04/27/18 21:00 Room Air 04/27/18 20:00 100.7 112 18 124/81 (95) 96 04/27/18 15:52 99.9 71 19 133/70 (91) 96 Intake and Output 04/27/18 04/28/18 19:00 07:00 Intake Total 720 ml 1116.666 ml Output Total 650 ml Balance 720 ml 466.666 ml Intake Oral 720 ml 420 ml IV Total 696.666 ml Output Urine Total 650 ml # Voids 4 2 Laboratory Tests 04/27/18 15:25: Vancomycin Level Trough 4.4L 04/28/18 05:25: White Blood Count 8.3, Red Blood Count 4.02L, Hemoglobin 13.5L, Hematocrit 38.5L , Mean Corpuscular Volume 96, Mean Corpuscular Hemoglobin 33.5H, Mean Corpuscular Hemoglobin Concent 35.0, Red Cell Distribution Width 11.4L, Platelet Count 293, Mean Platelet Volume 5.5L, Neutrophils (%) (Auto) 53.0, Lymphocytes (%) (Auto) 16.1L, Monocytes (%) (Auto) 13.5H, Eosinophils (%) (Auto ) 16.4H, Basophils (%) (Auto) 1.0, Sodium Level 133L, Potassium Level 3.6, Chloride Level 98, Carbon Dioxide Level 26, Anion Gap 9, Blood Urea Nitrogen 10 , Creatinine 0.9, Estimat Glomerular Filtration Rate > 60, Glucose Level 104, Calcium Level 8.6, Total Bilirubin 3.6H, Direct Bilirubin 2.7H, Aspartate Amino Transf (AST/SGOT) 157H, Alanine Aminotransferase (ALT/SGPT) 216H, Alkaline Phosphatase 854H, Total Protein 6.6, Albumin 2.9L, Globulin 3.7, Albumin/ Globulin Ratio 0.8L Height (Feet): 5 Height (Inches): 11.00 Weight (Pounds): 145 General Appearance: lethargic EENT: normal ENT inspection Neck: normal alignment Cardiovascular: normal peripheral pulses, normal rate, regular rhythm Respiratory/Chest: chest wall non-tender, lungs clear, normal breath sounds Abdomen: normal bowel sounds, non tender, soft Extremities: normal inspection Edema: no edema noted Arm (L), no edema noted Arm (R), no edema noted Leg (L), no edema noted Leg (R), no edema noted Pedal (L), no edema noted Pedal (R), no edema noted Generalized Neurologic: motor weakness Skin: normal pigmentation, warm/dry Neri Cat DO Apr 28, 2018 13:12
[2018-04-28 16:00] VITALS: BP 137/74
--- NOTE | 2018-04-28 16:29 | NUR ---
NURSE NOTES: noted with fever 101.8. Tylenol will be administered and Dr. stanley notified. will continue to monitor
--- NOTE | 2018-04-28 16:40 | Pulmonology Progress Note ---
Assessment/Plan Problems: (1) Sepsis (2) History of craniotomy (3) Intractable pain (4) Head ache (5) Brain tumor Assessment/Plan panculture MRI brain was negaitve awaiting neuro evaluation dc ativen symptomatic treatment neuro evaluation pain management Subjective ROS Limited/Unobtainable: No Constitutional: Reports: no symptoms HEENT: Repors: no symptoms Allergies: Uncoded Allergies: CONTRAST (Allergy, Mild, Rash, 04/26/18) Objective Last 24 Hour Vital Signs Date Time Temp Pulse Resp B/P (MAP) Pulse Ox O2 Delivery O2 Flow Rate FiO2 04/28/18 16:00 101.8 110 19 137/74 (95) 99 04/28/18 13:31 133/75 04/28/18 12:00 98.8 107 19 133/75 (94) 99 04/28/18 09:28 Room Air 04/28/18 08:28 100 130/88 04/28/18 08:00 98.9 100 19 130/88 (102) 99 04/28/18 05:33 99.1 04/28/18 05:33 99.1 04/28/18 05:02 134/90 04/28/18 04:00 100.6 108 19 134/90 (105) 100 04/28/18 00:00 100.1 106 17 131/81 (98) 99 04/27/18 22:18 100.1 04/27/18 21:48 124/81 04/27/18 21:00 Room Air 04/27/18 20:00 100.7 112 18 124/81 (95) 96 Intake and Output 04/27/18 04/28/18 19:00 07:00 Intake Total 720 ml 1116.666 ml Output Total 650 ml Balance 720 ml 466.666 ml Intake Oral 720 ml 420 ml IV Total 696.666 ml Output Urine Total 650 ml # Voids 4 2 Objective General Appearance: WD/WN HEENT: normocephalic Respiratory/Chest: chest wall non-tender, lungs clear, normal breath sounds Breasts: no masses Cardiovascular: normal peripheral pulses, normal rate Abdomen: normal bowel sounds, soft, non tender Extremities: no cyanosis Skin: no rash Microbiology Date/Time Source Procedure Growth Status 04/26/18 16:20 Blood Blood Culture - Preliminary NO GROWTH AFTER 24 HOURS Resulted 04/26/18 16:05 Blood Blood Culture - Preliminary NO GROWTH AFTER 24 HOURS Resulted 04/26/18 20:00 Nasopharynx Influenza Types A,B Antigen (SARAH) - Final Complete 04/26/18 16:30 Head Gram Stain - Final Complete 04/26/18 16:30 Wound Culture - Final Staphylococcus Aureus Complete Laboratory Tests 04/28/18 05:25: White Blood Count 8.3, Red Blood Count 4.02L, Hemoglobin 13.5L, Hematocrit 38.5L , Mean Corpuscular Volume 96, Mean Corpuscular Hemoglobin 33.5H, Mean Corpuscular Hemoglobin Concent 35.0, Red Cell Distribution Width 11.4L, Platelet Count 293, Mean Platelet Volume 5.5L, Neutrophils (%) (Auto) 53.0, Lymphocytes (%) (Auto) 16.1L, Monocytes (%) (Auto) 13.5H, Eosinophils (%) (Auto ) 16.4H, Basophils (%) (Auto) 1.0, Sodium Level 133L, Potassium Level 3.6, Chloride Level 98, Carbon Dioxide Level 26, Anion Gap 9, Blood Urea Nitrogen 10 , Creatinine 0.9, Estimat Glomerular Filtration Rate > 60, Glucose Level 104, Calcium Level 8.6, Total Bilirubin 3.6H, Direct Bilirubin 2.7H, Aspartate Amino Transf (AST/SGOT) 157H, Alanine Aminotransferase (ALT/SGPT) 216H, Alkaline Phosphatase 854H, Total Protein 6.6, Albumin 2.9L, Globulin 3.7, Albumin/ Globulin Ratio 0.8L Current Medications Medications (Trade) Dose Ordered Sig/Obdulia Route PRN Reason Start Time Stop Time Status Last Admin Dose Admin Acetaminophen (Tylenol) 650 mg Q4H PRN ORAL fever 04/24/18 17:15 05/24/18 17:14 04/28/18 05:03 Al Hydroxide/Mg Hydroxide (Mylanta II) 30 ml Q6H PRN ORAL dyspepsia 04/24/18 17:15 05/24/18 17:14 Amlodipine Besylate (Norvasc) 10 mg DAILY ORAL 04/25/18 09:00 05/25/18 08:59 04/28/18 08:28 Cefepime HCl 1 gm/ Dextrose 55 ml @ 110 mls/hr Q12H IVPB 04/26/18 17:00 05/03/18 16:59 04/28/18 05:02 Dextrose (Dextrose 50%) 25 ml Q30M PRN IV Hypoglycemia 04/24/18 17:15 05/24/18 17:14 Dextrose (Dextrose 50%) 50 ml Q30M PRN IV Hypoglycemia 04/24/18 17:15 05/24/18 17:14 Diphenhydramine HCl (Benadryl) 25 mg Q6H PRN IVP Itching 04/26/18 16:30 05/26/18 16:29 04/28/18 05:32 Folic Acid (Folate) 1 mg DAILY ORAL 04/25/18 12:00 05/25/18 11:59 04/28/18 08:27 Gabapentin (Neurontin) 300 mg THREE TIMES A DAY ORAL 04/25/18 18:00 05/25/18 17:59 04/28/18 13:30 Gadobutrol (Gadavist) 7.5 mmol NOW PRN IV Radiology Procedure 04/26/18 13:45 04/30/18 13:45 Heparin Sodium (Porcine) (Heparin 5000 units/ml) 5,000 units EVERY 12 HOURS SUBQ 04/24/18 21:00 05/24/18 20:59 04/28/18 08:30 Hydralazine HCl (Apresoline) 25 mg EVERY 8 HOURS ORAL 04/24/18 22:00 05/24/18 21:59 04/28/18 13:31 Levetiracetam (Keppra) 500 mg EVERY 12 HOURS ORAL 04/24/18 21:00 05/24/18 20:59 04/28/18 08:28 Lorazepam (Ativan 2mg/ml 1ml) 1 mg Q6H PRN IVP For Anxiety 04/27/18 04:15 05/04/18 04:14 Ondansetron HCl (Zofran) 4 mg Q6H PRN IVP Nausea & Vomiting 04/24/18 17:15 05/24/18 17:14 04/26/18 09:00 Oxycodone/ Acetaminophen (Percocet 5-325) 1 tab Q4H PRN ORAL severe pain 04/27/18 15:30 05/04/18 15:29 04/28/18 05:29 Phenytoin (Dilantin) 100 mg THREE TIMES A DAY ORAL 04/24/18 18:00 05/24/18 17:59 04/28/18 13:30 Polyethylene Glycol (Miralax) 17 gm HSPRN PRN ORAL Constipation 04/24/18 17:15 05/24/18 17:14 Vancomycin HCl (Vanco rx to dose) 1 ea DAILY PRN MISC Per rx protocol 04/26/18 13:45 05/26/18 13:44 Vancomycin HCl 750 mg/Sodium Chloride 275 ml @ 183.333 mls/hr Q8H IVPB 04/27/18 20:00 05/02/18 19:59 04/28/18 13:40 Zolpidem Tartrate (Ambien) 5 mg HSPRN PRN ORAL Insomnia 04/24/18 17:15 05/01/18 17:14 Millicent Armas MD Apr 28, 2018 16:40
--- NOTE | 2018-04-28 16:43 | NUR ---
NURSE NOTES: Dr. morfin (neuro) was paged to inform him for the new consult. Msg left and awaiting for call back
--- NOTE | 2018-04-28 17:32 | Infectious Diseases Prog Note ---
Assessment/Plan Assessment/Plan Assessment: Sepsis; improving Fever , ongoing -wound cx craniotomy incision: MSSA (wound doesnt appaer infected) -bcx NTD -influenza sc neg Headache- MRI shows post-surgical findings, no obvious abscess- r/o nosocomial meningitis -04/26 MRI Brain w/wo: Evidence of recent resection of a mass centered about the inferior aspect of the anterior interhemispheric fissure, a typical location for meningioma. Please correlate with the surgical history. Some enhancement of the dura along the anterior interhemispheric fissure and within the surgical bed is not unexpected given the recent surgery. However, the possibility of residual neoplasm is not excludable. There are no reference studies to compare to the preoperative MRI available. Other notable postsurgical finding includes a small fluid collection within the surgical bed deep to the bifrontal craniotomy flap and mild edema within the frontal lobes -CT brain wo: Postsurgical changes associated with relatively recent bifrontal craniotomy likely resection of a mass in the area of the interhemispheric fissure. 6 mm thick mixed attenuation extra-axial blood noted within the surgical bed. Please correlate with the operative report and comparison with prior studies is strongly recommended. -ESR 42, CRP 16.2 -HIV ag/ab neg Recent Brain tumor removal (1 month ago) No leukocytosis Elevated LFTs, increased -Abd US: No acute findings. -Acute hep panel neg seizure disorder GERD tobacco use Drug rash-?culprit (present before antibiotics) Plan: -Continue empiric IV Vancomycin and Cefepime #3 for now pending cutlures -f/u Bcx x2, influenza sc -u/aw/ reflex and CXR -if normal, will order lumbar puncture in the setting of ongoing fevers, REES upon admission and recent brain surgery to evaluate for nosocomial mengitis -f/u cx -Monitor CBC/CMP, temperatures -management of drug rash per primary Thank you for this consultation. Will continue to follow along with you. Discussed with RN. Subjective Allergies: Uncoded Allergies: CONTRAST (Allergy, Mild, Rash, 04/26/18) Subjective Tm 101.8 no leukocytosis Bcx NTD Objective Vital Signs Last 24 Hour Vital Signs Date Time Temp Pulse Resp B/P (MAP) Pulse Ox O2 Delivery O2 Flow Rate FiO2 04/28/18 16:00 101.8 110 19 137/74 (95) 99 04/28/18 13:31 133/75 04/28/18 12:00 98.8 107 19 133/75 (94) 99 04/28/18 09:28 Room Air 04/28/18 08:28 100 130/88 04/28/18 08:00 98.9 100 19 130/88 (102) 99 04/28/18 05:33 99.1 04/28/18 05:33 99.1 04/28/18 05:02 134/90 04/28/18 04:00 100.6 108 19 134/90 (105) 100 04/28/18 00:00 100.1 106 17 131/81 (98) 99 04/27/18 22:18 100.1 04/27/18 21:48 124/81 04/27/18 21:00 Room Air 04/27/18 20:00 100.7 112 18 124/81 (95) 96 Height (Feet): 5 Height (Inches): 11.00 Weight (Pounds): 145 Objective HEAD: craniotomy scar with some superficial ulceration on R left side- no signs of infection GENERAL: Anxious in bed, oriented x2, in no acute distress. CARDIOVASCULAR: No murmur. LUNGS: Distant and clear. ABDOMEN: Bowel sounds positive. Nontender. Nondistended. EXTREMITIES: No cyanosis, clubbing, or edema. NEUROLOGIC: The patient moves all extremities. Slight weakness in extremities. Skin: maculopapular rash in torso, arms Microbiology Date/Time Source Procedure Growth Status 04/26/18 16:20 Blood Blood Culture - Preliminary NO GROWTH AFTER 24 HOURS Resulted 04/26/18 16:05 Blood Blood Culture - Preliminary NO GROWTH AFTER 24 HOURS Resulted 04/26/18 20:00 Nasopharynx Influenza Types A,B Antigen (SARAH) - Final Complete 04/26/18 16:30 Head Gram Stain - Final Complete 04/26/18 16:30 Wound Culture - Final Staphylococcus Aureus Complete Laboratory Tests Test 04/28/18 05:25 White Blood Count 8.3 K/UL (4.8-10.8) Red Blood Count 4.02 M/UL (4.70-6.10) L Hemoglobin 13.5 G/DL (14.2-18.0) L Hematocrit 38.5 % (42.0-52.0) L Mean Corpuscular Volume 96 FL (80-99) Mean Corpuscular Hemoglobin 33.5 PG (27.0-31.0) H Mean Corpuscular Hemoglobin Concent 35.0 G/DL (32.0-36.0) Red Cell Distribution Width 11.4 % (11.6-14.8) L Platelet Count 293 K/UL (150-450) Mean Platelet Volume 5.5 FL (6.5-10.1) L Neutrophils (%) (Auto) 53.0 % (45.0-75.0) Lymphocytes (%) (Auto) 16.1 % (20.0-45.0) L Monocytes (%) (Auto) 13.5 % (1.0-10.0) H Eosinophils (%) (Auto) 16.4 % (0.0-3.0) H Basophils (%) (Auto) 1.0 % (0.0-2.0) Sodium Level 133 MMOL/L (136-145) L Potassium Level 3.6 MMOL/L (3.5-5.1) Chloride Level 98 MMOL/L (98-107) Carbon Dioxide Level 26 MMOL/L (21-32) Anion Gap 9 mmol/L (5-15) Blood Urea Nitrogen 10 mg/dL (7-18) Creatinine 0.9 MG/DL (0.55-1.30) Estimat Glomerular Filtration Rate > 60 mL/min (>60) Glucose Level 104 MG/DL (74-106) Calcium Level 8.6 MG/DL (8.5-10.1) Total Bilirubin 3.6 MG/DL (0.2-1.0) H Direct Bilirubin 2.7 MG/DL (0.0-0.3) H Aspartate Amino Transf (AST/SGOT) 157 U/L (15-37) H Alanine Aminotransferase (ALT/SGPT) 216 U/L (12-78) H Alkaline Phosphatase 854 U/L (46-116) H Total Protein 6.6 G/DL (6.4-8.2) Albumin 2.9 G/DL (3.4-5.0) L Globulin 3.7 g/dL Albumin/Globulin Ratio 0.8 (1.0-2.7) L Current Medications Medications (Trade) Dose Ordered Sig/Obdulia Route PRN Reason Start Time Stop Time Status Last Admin Dose Admin Acetaminophen (Tylenol) 650 mg Q4H PRN ORAL fever 04/24/18 17:15 05/24/18 17:14 04/28/18 05:03 Al Hydroxide/Mg Hydroxide (Mylanta II) 30 ml Q6H PRN ORAL dyspepsia 04/24/18 17:15 05/24/18 17:14 Amlodipine Besylate (Norvasc) 10 mg DAILY ORAL 04/25/18 09:00 05/25/18 08:59 04/28/18 08:28 Cefepime HCl 1 gm/ Dextrose 55 ml @ 110 mls/hr Q12H IVPB 04/26/18 17:00 05/03/18 16:59 04/28/18 17:24 Dextrose (Dextrose 50%) 25 ml Q30M PRN IV Hypoglycemia 04/24/18 17:15 05/24/18 17:14 Dextrose (Dextrose 50%) 50 ml Q30M PRN IV Hypoglycemia 04/24/18 17:15 05/24/18 17:14 Diphenhydramine HCl (Benadryl) 25 mg Q6H PRN IVP Itching 04/26/18 16:30 05/26/18 16:29 04/28/18 05:32 Folic Acid (Folate) 1 mg DAILY ORAL 04/25/18 12:00 05/25/18 11:59 04/28/18 08:27 Gabapentin (Neurontin) 300 mg THREE TIMES A DAY ORAL 04/25/18 18:00 05/25/18 17:59 04/28/18 17:25 Gadobutrol (Gadavist) 7.5 mmol NOW PRN IV Radiology Procedure 04/26/18 13:45 04/30/18 13:45 Heparin Sodium (Porcine) (Heparin 5000 units/ml) 5,000 units EVERY 12 HOURS SUBQ 04/24/18 21:00 05/24/18 20:59 04/28/18 08:30 Hydralazine HCl (Apresoline) 25 mg EVERY 8 HOURS ORAL 04/24/18 22:00 05/24/18 21:59 04/28/18 13:31 Levetiracetam (Keppra) 500 mg EVERY 12 HOURS ORAL 04/24/18 21:00 05/24/18 20:59 04/28/18 08:28 Lorazepam (Ativan 2mg/ml 1ml) 1 mg Q6H PRN IVP For Anxiety 04/27/18 04:15 05/04/18 04:14 Ondansetron HCl (Zofran) 4 mg Q6H PRN IVP Nausea & Vomiting 04/24/18 17:15 05/24/18 17:14 04/26/18 09:00 Oxycodone/ Acetaminophen (Percocet 5-325) 1 tab Q4H PRN ORAL severe pain 04/27/18 15:30 05/04/18 15:29 04/28/18 05:29 Phenytoin (Dilantin) 100 mg THREE TIMES A DAY ORAL 04/24/18 18:00 05/24/18 17:59 04/28/18 17:25 Polyethylene Glycol (Miralax) 17 gm HSPRN PRN ORAL Constipation 04/24/18 17:15 05/24/18 17:14 Vancomycin HCl (Vanco rx to dose) 1 ea DAILY PRN MISC Per rx protocol 04/26/18 13:45 05/26/18 13:44 Vancomycin HCl 750 mg/Sodium Chloride 275 ml @ 183.333 mls/hr Q8H IVPB 04/27/18 20:00 05/02/18 19:59 04/28/18 13:40 Zolpidem Tartrate (Ambien) 5 mg HSPRN PRN ORAL Insomnia 04/24/18 17:15 05/01/18 17:14 Kelsie Ibarra M.D. Apr 28, 2018 17:32
--- NOTE | 2018-04-28 18:53 | NUR ---
CASE MANAGEMENT: REVIEW SI: ELEVATED LFT . SEIZURE DISORDER T 101.8 HR 110 RR 19 BP 137/74 SAT 99% ROOM AIR NA 133 AST 157 ALT 216 ALK 854 IS: VANCO IV Q8HR CEFEPIME IV Q12KHR KEPPRA PO Q12HR MED/SURG STATUS DCP: PATIENT IS FROM [facility]
--- NOTE | 2018-04-28 19:09 | NUR ---
HAND-OFF: Report given to BELEN clements.
--- NOTE | 2018-04-28 19:30 | NUR ---
NURSE NOTES: Received patient in bed. A&OX2 with confusion. IV site patent and intact. Sitter at bedside. Bed in lowest position. Call light within reach. Will continue to monitor.
[2018-04-28 20:00] VITALS: BP 125/78
[2018-04-28] MEDS: Vancomycin 1gm/D5W 275ml IVPB SCH ×2 (20:06)
--- NOTE | 2018-04-28 22:00 | NUR ---
NURSE NOTES: Patient refused and spit out keppra and Hydralazine. Explained risk and benefit but still refused. Patient agitated and restless at this time.
--- NOTE | 2018-04-28 22:15 | NUR ---
NURSE NOTES: Notified ABG result Dr. Parada. No new order at this time.
[2018-04-28 22:18] LABS: APPEARANCE,URINE SLIGHTLY CLOUDY; BILIRUBIN, URINE 3+ (NEGATIVE); COLOR,URINE BROWN; GLUCOSE, URINE (UA) NEGATIVE (NEGATIVE); KETONES,URINE 3+ (NEGATIVE); LEUKOCYTE ESTERASE ,URINE 1+ (NEGATIVE); NITRITE,URINE POSITIVE (NEGATIVE); PH,URINE 5 (4.5-8.0); PROTEIN,URINE 2+ (NEGATIVE); UROBILINOGEN,URINE 8 MG/DL (0.0-1.0)
--- NOTE | 2018-04-28 23:30 | NUR ---
NURSE NOTES: Patient spit out percocet. Wasted and witness by Gilmar GLOVER.
[2018-04-29] VITALS: BP 124/73
[2018-04-29] MEDS: Vancomycin 1gm/D5W 275ml IVPB SCH ×4 (03:15→13:15)
[2018-04-29 04:00] VITALS: BP 135/83
[2018-04-29] MEDS: Cefepime HCl 1 GM in D5W 55 ML IVPB SCH (04:56)
[2018-04-29] MEDS: HydrALAZINE 25mg tab ORAL SCH ×3 (06:21→22:09)
--- NOTE | 2018-04-29 07:06 | General Progress Note ---
Assessment/Plan Problem List: (1) History of craniotomy ICD Codes: Z98.890 - Other specified postprocedural states SNOMED: 66410801, 062825329 (2) Intractable pain ICD Codes: R52 - Pain, unspecified SNOMED: 87621173 (3) HTN (hypertension) ICD Codes: I10 - Essential (primary) hypertension SNOMED: 59474524 (4) Brain tumor ICD Codes: D49.6 - Neoplasm of unspecified behavior of brain SNOMED: 676213915 (5) Elevated alkaline phosphatase level ICD Codes: R74.8 - Abnormal levels of other serum enzymes SNOMED: 876228260 (6) Transaminitis ICD Codes: R74.0 - Nonspecific elevation of levels of transaminase and lactic acid dehydrogenase [LDH] SNOMED: 301845902, 809558018 (7) Anemia ICD Codes: D64.9 - Anemia, unspecified SNOMED: 505848427 Assessment/Plan Head CT reviewed lipase normal abdominal US reviewed, negative follow Hepatitis panel, negative adv diet OB stool r/o GI bleed monitor H&H, prn transfusions bowel regime ppi MRCP ordered AMA ordered Outpatient GI procedures Subjective ROS Limited/Unobtainable: No Allergies: Uncoded Allergies: CONTRAST (Allergy, Mild, Rash, 04/26/18) Objective Last 24 Hour Vital Signs Date Time Temp Pulse Resp B/P (MAP) Pulse Ox O2 Delivery O2 Flow Rate FiO2 04/29/18 06:21 135/83 04/29/18 04:00 101.3 109 18 135/83 (100) 98 04/29/18 01:47 101.3 04/29/18 00:00 100.9 113 18 124/73 (90) 97 04/28/18 22:00 125/78 04/28/18 21:00 Room Air 04/28/18 20:00 102.2 118 20 125/78 (94) 96 04/28/18 16:00 101.8 110 19 137/74 (95) 99 04/28/18 13:31 133/75 04/28/18 12:00 98.8 107 19 133/75 (94) 99 04/28/18 09:28 Room Air 04/28/18 08:28 100 130/88 04/28/18 08:00 98.9 100 19 130/88 (102) 99 Intake and Output 04/28/18 04/29/18 18:59 06:59 Intake Total 640 ml 1025.000 ml Output Total 3 ml 300 ml Balance 637 ml 725.000 ml Intake Oral 240 ml 420 ml IV Total 605.000 ml Other 400 ml Output Urine Total 3 ml 300 ml # Voids 6 3 Laboratory Tests 04/28/18 17:57: Arterial Blood pH 7.411, Arterial Blood Partial Pressure CO2 37.4, Arterial Blood Partial Pressure O2 73.5L, Arterial Blood HCO3 23.2, Arterial Blood Oxygen Saturation 94.8L, Arterial Blood Base Excess -1.0, Micheal Test Positive 04/28/18 18:49: Vancomycin Level Trough 11.4 04/28/18 20:15: Ammonia 48H 04/28/18 21:50: Urine Color Brown, Urine Appearance Slightly cloudy, Urine pH 5, Urine Specific [place] 1.015, Urine Protein 2+H, Urine Glucose (UA) Negative, Urine Ketones 3+H , Urine Blood 1+H, Urine Nitrite PositiveH, Urine Bilirubin 3+H, Urine Ictotest Positive, Urine Urobilinogen 8H, Urine Leukocyte Esterase 1+H, Urine RBC 2-4H, Urine WBC 2-4, Urine Squamous Epithelial Cells None, Urine Amorphous Sediment ModerateH, Urine Bacteria ModerateH, Urine Granular Casts 2-4H Height (Feet): 5 Height (Inches): 11.00 Weight (Pounds): 145 General Appearance: no apparent distress EENT: normal ENT inspection Neck: supple Cardiovascular: normal rate Respiratory/Chest: decreased breath sounds Abdomen: normal bowel sounds, non tender, soft Extremities: non-tender Barry Kimball MD Apr 29, 2018 07:06
--- NOTE | 2018-04-29 07:26 | NUR ---
HAND-OFF: Report given to Gopal GLOVER.
--- NOTE | 2018-04-29 07:55 | NUR ---
NURSE NOTES: Received patient from Ronan RN, patient is up in bed eating a small amount of breakfast, no distress noted, bed is locked and in lowest position, call light within reach, bed alarm on and sitter at bedside, will continue to monitor.
[2018-04-29 08:00] VITALS: BP 133/84
[2018-04-29 08:07] LABS: BASOPHILS % (AUTO) 0.8 % (0.0-2.0); EOSINOPHILS % (AUTO) 13.5 % (0.0-3.0); HEMATOCRIT 39.6 % (42.0-52.0); HEMOGLOBIN 13.7 G/DL (14.2-18.0); LYMPHOCYTES % (AUTO) 15.3 % (20.0-45.0); MEAN CORPUSCULAR VOLUME 96 FL (80-99); NEUTROPHILS % (AUTO) 59.5 % (45.0-75.0); PLATELET COUNT 292 K/UL (150-450); RED BLOOD COUNT 4.14 M/UL (4.70-6.10); RED CELL DISTRIBUTION WIDTH 11.3 % (11.6-14.8); WHITE BLOOD COUNT 9.7 K/UL (4.8-10.8)
[2018-04-29 08:21] LABS: ANION GAP 11 mmol/L (5-15); BLOOD UREA NITROGEN 13 mg/dL (7-18); CALCIUM 8.5 MG/DL (8.5-10.1); CARBON DIOXIDE 25 MMOL/L (21-32); CHLORIDE 95 MMOL/L (98-107); POTASSIUM 3.3 MMOL/L (3.5-5.1); SODIUM 131 MMOL/L (136-145)
[2018-04-29 08:41] LABS: ALANINE AMINOTRANSFERASE 175 U/L (12-78); ALBUMIN 2.8 G/DL (3.4-5.0); ALKALINE PHOSPHATASE 867 U/L (46-116); ASPARTATE AMINO TRANSFERASE 95 U/L (15-37); BILIRUBIN,DIRECT 3.9 MG/DL (0.0-0.3); BILIRUBIN,TOTAL 4.9 MG/DL (0.2-1.0)
--- NOTE | 2018-04-29 09:13 | General Progress Note ---
Assessment/Plan Problem List: (1) Head ache ICD Codes: R51 - Headache SNOMED: 50756317 (2) Weak ICD Codes: R53.1 - Weakness SNOMED: 65111035 (3) HTN (hypertension) ICD Codes: I10 - Essential (primary) hypertension SNOMED: 77975535 (4) Malnutrition ICD Codes: E46 - Unspecified protein-calorie malnutrition SNOMED: 33390081 (5) Epilepsy ICD Codes: G40.909 - Epilepsy, unspecified, not intractable, without status epilepticus SNOMED: 40203839 (6) Intractable pain ICD Codes: R52 - Pain, unspecified SNOMED: 71276249 Status: unchanged Assessment/Plan pt diet pain control neuro psyc eval abx prn cbc bmp am dc plan if clear Subjective Allergies: Uncoded Allergies: CONTRAST (Allergy, Mild, Rash, 04/26/18) All Systems: reviewed and negative except above Subjective sleepy c/o some head ache Objective Last 24 Hour Vital Signs Date Time Temp Pulse Resp B/P (MAP) Pulse Ox O2 Delivery O2 Flow Rate FiO2 04/29/18 06:50 100.4 04/29/18 06:21 135/83 04/29/18 04:00 101.3 109 18 135/83 (100) 98 04/29/18 00:00 100.9 113 18 124/73 (90) 97 04/28/18 22:00 125/78 04/28/18 21:00 Room Air 04/28/18 20:00 102.2 118 20 125/78 (94) 96 04/28/18 16:00 101.8 110 19 137/74 (95) 99 04/28/18 13:31 133/75 04/28/18 12:00 98.8 107 19 133/75 (94) 99 04/28/18 09:28 Room Air Intake and Output 04/28/18 04/29/18 19:00 07:00 Intake Total 640 ml 1025.000 ml Output Total 3 ml 300 ml Balance 637 ml 725.000 ml Intake Oral 240 ml 420 ml IV Total 605.000 ml Other 400 ml Output Urine Total 3 ml 300 ml # Voids 6 3 Laboratory Tests 04/28/18 17:57: Arterial Blood pH 7.411, Arterial Blood Partial Pressure CO2 37.4, Arterial Blood Partial Pressure O2 73.5L, Arterial Blood HCO3 23.2, Arterial Blood Oxygen Saturation 94.8L, Arterial Blood Base Excess -1.0, Micheal Test Positive 04/28/18 18:49: Vancomycin Level Trough 11.4 04/28/18 20:15: Ammonia 48H 04/28/18 21:50: Urine Color Brown, Urine Appearance Slightly cloudy, Urine pH 5, Urine Specific [place] 1.015, Urine Protein 2+H, Urine Glucose (UA) Negative, Urine Ketones 3+H , Urine Blood 1+H, Urine Nitrite PositiveH, Urine Bilirubin 3+H, Urine Ictotest Positive, Urine Urobilinogen 8H, Urine Leukocyte Esterase 1+H, Urine RBC 2-4H, Urine WBC 2-4, Urine Squamous Epithelial Cells None, Urine Amorphous Sediment ModerateH, Urine Bacteria ModerateH, Urine Granular Casts 2-4H 04/29/18 06:33: White Blood Count 9.7, Red Blood Count 4.14L, Hemoglobin 13.7L, Hematocrit 39.6L , Mean Corpuscular Volume 96, Mean Corpuscular Hemoglobin 33.0H, Mean Corpuscular Hemoglobin Concent 34.5, Red Cell Distribution Width 11.3L, Platelet Count 292, Mean Platelet Volume 6.0L, Neutrophils (%) (Auto) 59.5, Lymphocytes (%) (Auto) 15.3L, Monocytes (%) (Auto) 11.0H, Eosinophils (%) (Auto ) 13.5H, Basophils (%) (Auto) 0.8, Sodium Level 131L, Potassium Level 3.3L, Chloride Level 95L, Carbon Dioxide Level 25, Anion Gap 11, Blood Urea Nitrogen 13, Creatinine 1.0, Estimat Glomerular Filtration Rate > 60, Glucose Level 131H , Calcium Level 8.5, Total Bilirubin 4.9H, Direct Bilirubin 3.9H, Aspartate Amino Transf (AST/SGOT) 95H, Alanine Aminotransferase (ALT/SGPT) 175H, Alkaline Phosphatase 867H, Total Protein 6.6, Albumin 2.8L Height (Feet): 5 Height (Inches): 11.00 Weight (Pounds): 145 General Appearance: lethargic EENT: normal ENT inspection Neck: normal alignment Cardiovascular: normal peripheral pulses, normal rate, regular rhythm Respiratory/Chest: chest wall non-tender, lungs clear, normal breath sounds Abdomen: normal bowel sounds, non tender, soft Extremities: normal inspection Edema: no edema noted Arm (L), no edema noted Arm (R), no edema noted Leg (L), no edema noted Leg (R), no edema noted Pedal (L), no edema noted Pedal (R), no edema noted Generalized Neurologic: motor weakness Skin: normal pigmentation, warm/dry Neri Cat DO Apr 29, 2018 09:13
[2018-04-29] MEDS: Phenytoin 100mg cap ORAL SCH ×4 (09:20→18:21)
[2018-04-29] MEDS: Heparin 5000 units/ml inj SUBQ SCH ×2 (09:23→22:16)
--- NOTE | 2018-04-29 10:24 | Diagnostic Imaging Report ---
EXAM: XR Chest, 1 View CLINICAL HISTORY: COUGH TECHNIQUE: Frontal view of the chest. COMPARISON: No relevant prior studies available. FINDINGS: Lungs: Mildly increased interstitial markings. The lungs are otherwise clear without focal consolidation. Pleural space: Unremarkable. The costophrenic angles are sharp. No visible pneumothorax. Heart: Unremarkable. No cardiomegaly. Mediastinum: Unremarkable. Bones/joints: Unremarkable. IMPRESSION: Mildly increased interstitial markings. This is nonspecific and cannot exclude a mild bronchitis or interstitial pneumonitis. No focal consolidation.
--- NOTE | 2018-04-29 10:45 | NUR ---
NURSE NOTES: RN contacted Dr. Cat regarding abnormal electrolytes from this mornings lab work, Dr. Cat stated to notify Dr. Romero regarding values, RN contacted Dr. Romero, left message, awaiting return call.
[2018-04-29 12:00] VITALS: BP 111/63
--- NOTE | 2018-04-29 12:00 | Pulmonology Progress Note ---
Assessment/Plan Problems: (1) Drug-induced hepatic toxicity (2) Transaminitis (3) Phenytoin toxicity (4) Sepsis (5) History of craniotomy (6) Intractable pain (7) Head ache (8) Brain tumor Assessment/Plan GI evaluaiton iv fluids dc ativen symptomatic treatment neuro evaluation pain management Subjective ROS Limited/Unobtainable: Yes Allergies: Coded Allergies: GADOBUTROL (Verified Allergy, Intermediate, 04/30/18) Uncoded Allergies: CONTRAST (Allergy, Mild, Rash, 04/26/18) Objective Last 24 Hour Vital Signs Date Time Temp Pulse Resp B/P (MAP) Pulse Ox O2 Delivery O2 Flow Rate FiO2 04/29/18 09:21 112 133/84 04/29/18 08:15 Room Air 04/29/18 08:00 100.4 112 18 133/84 (100) 97 04/29/18 06:50 100.4 04/29/18 06:21 135/83 04/29/18 04:00 101.3 109 18 135/83 (100) 98 04/29/18 00:00 100.9 113 18 124/73 (90) 97 04/28/18 22:00 125/78 04/28/18 21:00 Room Air 04/28/18 20:00 102.2 118 20 125/78 (94) 96 04/28/18 16:00 101.8 110 19 137/74 (95) 99 04/28/18 13:31 133/75 Intake and Output 04/28/18 04/29/18 19:00 07:00 Intake Total 640 ml 1025.000 ml Output Total 3 ml 300 ml Balance 637 ml 725.000 ml Intake Oral 240 ml 420 ml IV Total 605.000 ml Other 400 ml Output Urine Total 3 ml 300 ml # Voids 6 3 Objective General Appearance: WD/WN HEENT: normocephalic Respiratory/Chest: chest wall non-tender, lungs clear, normal breath sounds Breasts: no masses Cardiovascular: normal peripheral pulses, normal rate Abdomen: normal bowel sounds, soft, non tender Extremities: no cyanosis Skin: no rash Microbiology Date/Time Source Procedure Growth Status 04/26/18 16:20 Blood Blood Culture - Preliminary NO GROWTH AFTER 48 HOURS Resulted 04/26/18 16:05 Blood Blood Culture - Preliminary NO GROWTH AFTER 48 HOURS Resulted 04/26/18 20:00 Nasopharynx Influenza Types A,B Antigen (SARAH) - Final Complete 04/28/18 21:50 Urine,Clean Catch Urine Culture - Preliminary NO GROWTH Resulted 04/26/18 16:30 Head Gram Stain - Final Complete 04/26/18 16:30 Wound Culture - Final Staphylococcus Aureus Complete Laboratory Tests 04/28/18 17:57: Arterial Blood pH 7.411, Arterial Blood Partial Pressure CO2 37.4, Arterial Blood Partial Pressure O2 73.5L, Arterial Blood HCO3 23.2, Arterial Blood Oxygen Saturation 94.8L, Arterial Blood Base Excess -1.0, Micheal Test Positive 04/28/18 18:49: Vancomycin Level Trough 11.4 04/28/18 20:15: Ammonia 48H 04/28/18 21:50: Urine Color Brown, Urine Appearance Slightly cloudy, Urine pH 5, Urine Specific [place] 1.015, Urine Protein 2+H, Urine Glucose (UA) Negative, Urine Ketones 3+H , Urine Blood 1+H, Urine Nitrite PositiveH, Urine Bilirubin 3+H, Urine Ictotest Positive, Urine Urobilinogen 8H, Urine Leukocyte Esterase 1+H, Urine RBC 2-4H, Urine WBC 2-4, Urine Squamous Epithelial Cells None, Urine Amorphous Sediment ModerateH, Urine Bacteria ModerateH, Urine Granular Casts 2-4H 04/29/18 06:33: White Blood Count 9.7, Red Blood Count 4.14L, Hemoglobin 13.7L, Hematocrit 39.6L , Mean Corpuscular Volume 96, Mean Corpuscular Hemoglobin 33.0H, Mean Corpuscular Hemoglobin Concent 34.5, Red Cell Distribution Width 11.3L, Platelet Count 292, Mean Platelet Volume 6.0L, Neutrophils (%) (Auto) 59.5, Lymphocytes (%) (Auto) 15.3L, Monocytes (%) (Auto) 11.0H, Eosinophils (%) (Auto ) 13.5H, Basophils (%) (Auto) 0.8, Sodium Level 131L, Potassium Level 3.3L, Chloride Level 95L, Carbon Dioxide Level 25, Anion Gap 11, Blood Urea Nitrogen 13, Creatinine 1.0, Estimat Glomerular Filtration Rate > 60, Glucose Level 131H , Calcium Level 8.5, Total Bilirubin 4.9H, Direct Bilirubin 3.9H, Aspartate Amino Transf (AST/SGOT) 95H, Alanine Aminotransferase (ALT/SGPT) 175H, Alkaline Phosphatase 867H, Total Protein 6.6, Albumin 2.8L 04/29/18 10:31: Anti-Nuclear Antibody Screen [Pending], F-Actin IgG Antibody [Pending] Current Medications Medications (Trade) Dose Ordered Sig/Obdulia Route PRN Reason Start Time Stop Time Status Last Admin Dose Admin Acetaminophen (Tylenol) 650 mg Q4H PRN ORAL fever 04/24/18 17:15 05/24/18 17:14 04/29/18 06:20 Al Hydroxide/Mg Hydroxide (Mylanta II) 30 ml Q6H PRN ORAL dyspepsia 04/24/18 17:15 05/24/18 17:14 Amlodipine Besylate (Norvasc) 10 mg DAILY ORAL 04/25/18 09:00 05/25/18 08:59 04/29/18 09:21 Cefepime HCl 1 gm/ Dextrose 55 ml @ 110 mls/hr Q12H IVPB 04/26/18 17:00 05/03/18 16:59 04/29/18 04:56 Dextrose (Dextrose 50%) 25 ml Q30M PRN IV Hypoglycemia 04/24/18 17:15 05/24/18 17:14 Dextrose (Dextrose 50%) 50 ml Q30M PRN IV Hypoglycemia 04/24/18 17:15 05/24/18 17:14 Diphenhydramine HCl (Benadryl) 25 mg Q6H PRN IVP Itching 04/26/18 16:30 05/26/18 16:29 04/28/18 05:32 Folic Acid (Folate) 1 mg DAILY ORAL 04/25/18 12:00 05/25/18 11:59 04/29/18 09:21 Gabapentin (Neurontin) 300 mg THREE TIMES A DAY ORAL 04/25/18 18:00 05/25/18 17:59 04/29/18 09:20 Gadobutrol (Gadavist) 7.5 mmol NOW PRN IV Radiology Procedure 04/26/18 13:45 04/30/18 13:45 Heparin Sodium (Porcine) (Heparin 5000 units/ml) 5,000 units EVERY 12 HOURS SUBQ 04/24/18 21:00 05/24/18 20:59 04/29/18 09:23 Hydralazine HCl (Apresoline) 25 mg EVERY 8 HOURS ORAL 04/24/18 22:00 05/24/18 21:59 04/29/18 06:21 Levetiracetam (Keppra) 500 mg EVERY 12 HOURS ORAL 04/24/18 21:00 05/24/18 20:59 04/29/18 09:20 Lorazepam (Ativan 2mg/ml 1ml) 1 mg Q6H PRN IVP For Anxiety 04/27/18 04:15 05/04/18 04:14 Ondansetron HCl (Zofran) 4 mg Q6H PRN IVP Nausea & Vomiting 04/24/18 17:15 05/24/18 17:14 04/26/18 09:00 Oxycodone/ Acetaminophen (Percocet 5-325) 1 tab Q4H PRN ORAL severe pain 04/27/18 15:30 05/04/18 15:29 04/28/18 05:29 Phenytoin (Dilantin) 100 mg THREE TIMES A DAY ORAL 04/24/18 18:00 05/24/18 17:59 04/29/18 09:20 Polyethylene Glycol (Miralax) 17 gm HSPRN PRN ORAL Constipation 04/24/18 17:15 05/24/18 17:14 Vancomycin HCl (Vanco rx to dose) 1 ea DAILY PRN MISC Per rx protocol 04/26/18 13:45 05/26/18 13:44 Vancomycin HCl 1 gm/Dextrose 275 ml @ 183.708 mls/hr Q8HR@0400,1200,2000 IVPB 04/28/18 20:00 05/03/18 19:59 04/29/18 03:15 Zolpidem Tartrate (Ambien) 5 mg HSPRN PRN ORAL Insomnia 04/24/18 17:15 05/01/18 17:14 Millicent Armas MD Apr 29, 2018 12:00
--- NOTE | 2018-04-29 13:21 | Infectious Diseases Prog Note ---
Assessment/Plan Assessment/Plan Assessment: Sepsis; improving Fever , ongoing -wound cx craniotomy incision: MSSA (wound doesnt appaer infected) -bcx NTD -influenza sc neg Headache- MRI shows post-surgical findings, no obvious abscess- r/o nosocomial meningitis -04/26 MRI Brain w/wo: Evidence of recent resection of a mass centered about the inferior aspect of the anterior interhemispheric fissure, a typical location for meningioma. Please correlate with the surgical history. Some enhancement of the dura along the anterior interhemispheric fissure and within the surgical bed is not unexpected given the recent surgery. However, the possibility of residual neoplasm is not excludable. There are no reference studies to compare to the preoperative MRI available. Other notable postsurgical finding includes a small fluid collection within the surgical bed deep to the bifrontal craniotomy flap and mild edema within the frontal lobes -CT brain wo: Postsurgical changes associated with relatively recent bifrontal craniotomy likely resection of a mass in the area of the interhemispheric fissure. 6 mm thick mixed attenuation extra-axial blood noted within the surgical bed. Please correlate with the operative report and comparison with prior studies is strongly recommended. -ESR 42, CRP 16.2 -HIV ag/ab neg Recent Brain tumor removal (1 month ago) No leukocytosis Elevated LFTs, improving Elev alk and Leno -Abd US: No acute findings. -Acute hep panel neg seizure disorder GERD Tobacco use Drug rash-?culprit (present before antibiotics) Plan: -Continue empiric IV Vancomycin and Cefepime # 4 for now pending cutlures -f/u Bcx x2, influenza sc -u/aw/ reflex and CXR -if normal, will order lumbar puncture in the setting of ongoing fevers, REES upon admission and recent brain surgery to evaluate for nosocomial mengitis -f/u cx -Monitor CBC/CMP, temperatures -management of drug rash per primary - MRCP Subjective Allergies: Uncoded Allergies: CONTRAST (Allergy, Mild, Rash, 04/26/18) Subjective Fever improving abnl LFT Objective Vital Signs Last 24 Hour Vital Signs Date Time Temp Pulse Resp B/P (MAP) Pulse Ox O2 Delivery O2 Flow Rate FiO2 04/29/18 12:00 100.0 106 16 111/63 (79) 99 04/29/18 09:21 112 133/84 04/29/18 08:15 Room Air 3/2/19 08:00 100.4 112 18 133/84 (100) 97 04/29/18 06:50 100.4 04/29/18 06:21 135/83 04/29/18 04:00 101.3 109 18 135/83 (100) 98 04/29/18 00:00 100.9 113 18 124/73 (90) 97 04/28/18 22:00 125/78 04/28/18 21:00 Room Air 04/28/18 20:00 102.2 118 20 125/78 (94) 96 04/28/18 16:00 101.8 110 19 137/74 (95) 99 04/28/18 13:31 133/75 Height (Feet): 5 Height (Inches): 11.00 Weight (Pounds): 145 HEENT: anicteric Respiratory/Chest: normal breath sounds Cardiovascular: regular rhythm Abdomen: soft, non tender Microbiology Date/Time Source Procedure Growth Status 04/26/18 16:20 Blood Blood Culture - Preliminary NO GROWTH AFTER 48 HOURS Resulted 04/26/18 16:05 Blood Blood Culture - Preliminary NO GROWTH AFTER 48 HOURS Resulted 04/26/18 20:00 Nasopharynx Influenza Types A,B Antigen (SARAH) - Final Complete 04/28/18 21:50 Urine,Clean Catch Urine Culture - Preliminary NO GROWTH Resulted 04/26/18 16:30 Head Gram Stain - Final Complete 04/26/18 16:30 Wound Culture - Final Staphylococcus Aureus Complete Laboratory Tests Test 04/28/18 17:57 04/28/18 18:49 04/28/18 20:15 04/28/18 21:50 Arterial Blood pH 7.411 (7.350-7.450) Arterial Blood Partial Pressure CO2 37.4 mmHg (35.0-45.0) Arterial Blood Partial Pressure O2 73.5 mmHg (75.0-100.0) L Arterial Blood HCO3 23.2 mmol/L (22.0-26.0) Arterial Blood Oxygen Saturation 94.8 % (95-100) L Arterial Blood Base Excess -1.0 (-2-2) Micheal Test Positive Vancomycin Level Trough 11.4 ug/mL (5.0-12.0) Ammonia 48 umol/L (11-32) H Urine Color Brown Urine Appearance Slightly cloudy Urine pH 5 (4.5-8.0) Urine Specific [place] 1.015 (1.005-1.035) Urine Protein 2+ (NEGATIVE) H Urine Glucose (UA) Negative (NEGATIVE) Urine Ketones 3+ (NEGATIVE) H Urine Blood 1+ (NEGATIVE) H Urine Nitrite Positive (NEGATIVE) H Urine Bilirubin 3+ (NEGATIVE) H Urine Ictotest Positive (NEGATIVE) Urine Urobilinogen 8 MG/DL (0.0-1.0) H Urine Leukocyte Esterase 1+ (NEGATIVE) H Urine RBC 2-4 /HPF (0 - 0) H Urine WBC 2-4 /HPF (0 - 0) Urine Squamous Epithelial Cells None /LPF (NONE/OCC) Urine Amorphous Sediment Moderate /LPF (NONE) H Urine Bacteria Moderate /HPF (NONE) H Urine Granular Casts 2-4 /LPF (NONE) H Test 04/29/18 06:33 04/29/18 10:31 White Blood Count 9.7 K/UL (4.8-10.8) Red Blood Count 4.14 M/UL (4.70-6.10) L Hemoglobin 13.7 G/DL (14.2-18.0) L Hematocrit 39.6 % (42.0-52.0) L Mean Corpuscular Volume 96 FL (80-99) Mean Corpuscular Hemoglobin 33.0 PG (27.0-31.0) H Mean Corpuscular Hemoglobin Concent 34.5 G/DL (32.0-36.0) Red Cell Distribution Width 11.3 % (11.6-14.8) L Platelet Count 292 K/UL (150-450) Mean Platelet Volume 6.0 FL (6.5-10.1) L Neutrophils (%) (Auto) 59.5 % (45.0-75.0) Lymphocytes (%) (Auto) 15.3 % (20.0-45.0) L Monocytes (%) (Auto) 11.0 % (1.0-10.0) H Eosinophils (%) (Auto) 13.5 % (0.0-3.0) H Basophils (%) (Auto) 0.8 % (0.0-2.0) Sodium Level 131 MMOL/L (136-145) L Potassium Level 3.3 MMOL/L (3.5-5.1) L Chloride Level 95 MMOL/L (98-107) L Carbon Dioxide Level 25 MMOL/L (21-32) Anion Gap 11 mmol/L (5-15) Blood Urea Nitrogen 13 mg/dL (7-18) Creatinine 1.0 MG/DL (0.55-1.30) Estimat Glomerular Filtration Rate > 60 mL/min (>60) Glucose Level 131 MG/DL (74-106) H Calcium Level 8.5 MG/DL (8.5-10.1) Total Bilirubin 4.9 MG/DL (0.2-1.0) H Direct Bilirubin 3.9 MG/DL (0.0-0.3) H Aspartate Amino Transf (AST/SGOT) 95 U/L (15-37) H Alanine Aminotransferase (ALT/SGPT) 175 U/L (12-78) H Alkaline Phosphatase 867 U/L (46-116) H Total Protein 6.6 G/DL (6.4-8.2) Albumin 2.8 G/DL (3.4-5.0) L Anti-Nuclear Antibody Screen Pending F-Actin IgG Antibody Pending Current Medications Medications (Trade) Dose Ordered Sig/Obdulia Route PRN Reason Start Time Stop Time Status Last Admin Dose Admin Acetaminophen (Tylenol) 650 mg Q4H PRN ORAL fever 04/24/18 17:15 05/24/18 17:14 04/29/18 06:20 Al Hydroxide/Mg Hydroxide (Mylanta II) 30 ml Q6H PRN ORAL dyspepsia 04/24/18 17:15 05/24/18 17:14 Amlodipine Besylate (Norvasc) 10 mg DAILY ORAL 04/25/18 09:00 05/25/18 08:59 04/29/18 09:21 Cefepime HCl 1 gm/ Dextrose 55 ml @ 110 mls/hr Q12H IVPB 04/26/18 17:00 05/03/18 16:59 04/29/18 04:56 Dextrose (Dextrose 50%) 25 ml Q30M PRN IV Hypoglycemia 04/24/18 17:15 05/24/18 17:14 Dextrose (Dextrose 50%) 50 ml Q30M PRN IV Hypoglycemia 04/24/18 17:15 05/24/18 17:14 Diphenhydramine HCl (Benadryl) 25 mg Q6H PRN IVP Itching 04/26/18 16:30 05/26/18 16:29 04/28/18 05:32 Folic Acid (Folate) 1 mg DAILY ORAL 04/25/18 12:00 05/25/18 11:59 04/29/18 09:21 Gabapentin (Neurontin) 300 mg THREE TIMES A DAY ORAL 04/25/18 18:00 05/25/18 17:59 04/29/18 13:15 Gadobutrol (Gadavist) 7.5 mmol NOW PRN IV Radiology Procedure 04/26/18 13:45 04/30/18 13:45 Heparin Sodium (Porcine) (Heparin 5000 units/ml) 5,000 units EVERY 12 HOURS SUBQ 04/24/18 21:00 05/24/18 20:59 04/29/18 09:23 Hydralazine HCl (Apresoline) 25 mg EVERY 8 HOURS ORAL 04/24/18 22:00 05/24/18 21:59 04/29/18 06:21 Lactulose (Cephulac) 10 gm THREE TIMES A DAY ORAL 04/29/18 13:00 05/29/18 12:59 UNV Levetiracetam (Keppra) 500 mg EVERY 12 HOURS ORAL 04/24/18 21:00 05/24/18 20:59 04/29/18 09:20 Lorazepam (Ativan 2mg/ml 1ml) 1 mg Q6H PRN IVP For Anxiety 04/27/18 04:15 05/04/18 04:14 Ondansetron HCl (Zofran) 4 mg Q6H PRN IVP Nausea & Vomiting 04/24/18 17:15 05/24/18 17:14 04/26/18 09:00 Oxycodone/ Acetaminophen (Percocet 5-325) 1 tab Q4H PRN ORAL severe pain 04/27/18 15:30 05/04/18 15:29 04/28/18 05:29 Phenytoin (Dilantin) 100 mg THREE TIMES A DAY ORAL 04/24/18 18:00 05/24/18 17:59 04/29/18 13:15 Polyethylene Glycol (Miralax) 17 gm HSPRN PRN ORAL Constipation 04/24/18 17:15 05/24/18 17:14 Vancomycin HCl (Vanco rx to dose) 1 ea DAILY PRN MISC Per rx protocol 04/26/18 13:45 05/26/18 13:44 Vancomycin HCl 1 gm/Dextrose 275 ml @ 183.708 mls/hr Q8HR@0400,1200,2000 IVPB 04/28/18 20:00 05/03/18 19:59 04/29/18 13:15 Zolpidem Tartrate (Ambien) 5 mg HSPRN PRN ORAL Insomnia 04/24/18 17:15 05/01/18 17:14 Neo Cohen MD Apr 29, 2018 13:21
--- NOTE | 2018-04-29 13:58 | Nephrology Progress Note ---
Assessment/Plan Plan [id number] full note dictated Objective Objective Last 24 Hour Vital Signs Date Time Temp Pulse Resp B/P (MAP) Pulse Ox O2 Delivery O2 Flow Rate FiO2 04/29/18 12:00 100.0 106 16 111/63 (79) 99 04/29/18 09:21 112 133/84 04/29/18 08:15 Room Air 04/29/18 08:00 100.4 112 18 133/84 (100) 97 04/29/18 06:50 100.4 04/29/18 06:21 135/83 04/29/18 04:00 101.3 109 18 135/83 (100) 98 04/29/18 00:00 100.9 113 18 124/73 (90) 97 04/28/18 22:00 125/78 04/28/18 21:00 Room Air 04/28/18 20:00 102.2 118 20 125/78 (94) 96 04/28/18 16:00 101.8 110 19 137/74 (95) 99 Intake and Output 04/28/18 04/29/18 19:00 07:00 Intake Total 640 ml 1025.000 ml Output Total 3 ml 300 ml Balance 637 ml 725.000 ml Intake Oral 240 ml 420 ml IV Total 605.000 ml Other 400 ml Output Urine Total 3 ml 300 ml # Voids 6 3 Laboratory Tests 04/28/18 17:57: Arterial Blood pH 7.411, Arterial Blood Partial Pressure CO2 37.4, Arterial Blood Partial Pressure O2 73.5L, Arterial Blood HCO3 23.2, Arterial Blood Oxygen Saturation 94.8L, Arterial Blood Base Excess -1.0, Micheal Test Positive 04/28/18 18:49: Vancomycin Level Trough 11.4 04/28/18 20:15: Ammonia 48H 04/28/18 21:50: Urine Color Brown, Urine Appearance Slightly cloudy, Urine pH 5, Urine Specific [place] 1.015, Urine Protein 2+H, Urine Glucose (UA) Negative, Urine Ketones 3+H , Urine Blood 1+H, Urine Nitrite PositiveH, Urine Bilirubin 3+H, Urine Ictotest Positive, Urine Urobilinogen 8H, Urine Leukocyte Esterase 1+H, Urine RBC 2-4H, Urine WBC 2-4, Urine Squamous Epithelial Cells None, Urine Amorphous Sediment ModerateH, Urine Bacteria ModerateH, Urine Granular Casts 2-4H 04/29/18 06:33: White Blood Count 9.7, Red Blood Count 4.14L, Hemoglobin 13.7L, Hematocrit 39.6L , Mean Corpuscular Volume 96, Mean Corpuscular Hemoglobin 33.0H, Mean Corpuscular Hemoglobin Concent 34.5, Red Cell Distribution Width 11.3L, Platelet Count 292, Mean Platelet Volume 6.0L, Neutrophils (%) (Auto) 59.5, Lymphocytes (%) (Auto) 15.3L, Monocytes (%) (Auto) 11.0H, Eosinophils (%) (Auto ) 13.5H, Basophils (%) (Auto) 0.8, Sodium Level 131L, Potassium Level 3.3L, Chloride Level 95L, Carbon Dioxide Level 25, Anion Gap 11, Blood Urea Nitrogen 13, Creatinine 1.0, Estimat Glomerular Filtration Rate > 60, Glucose Level 131H , Calcium Level 8.5, Total Bilirubin 4.9H, Direct Bilirubin 3.9H, Aspartate Amino Transf (AST/SGOT) 95H, Alanine Aminotransferase (ALT/SGPT) 175H, Alkaline Phosphatase 867H, Total Protein 6.6, Albumin 2.8L 04/29/18 10:31: Anti-Nuclear Antibody Screen [Pending], F-Actin IgG Antibody [Pending] Height (Feet): 5 Height (Inches): 11.00 Weight (Pounds): 145 Marielena Romero MD Apr 29, 2018 13:58
[2018-04-29] MEDS ORDERED: Gadavist 7.5mMol/7.5ml vial IV PRN (14:45)
[2018-04-29] MEDS: Lactulose 10gm/15ml UDC ORAL SCH ×3 (15:25→18:21)
[2018-04-29 16:00] VITALS: BP 128/84
[2018-04-29] MEDS: Cefepime HCl 1 GM in NS 55 ML IVPB SCH (18:20)
--- NOTE | 2018-04-29 19:00 | Consultation ---
DATE OF CONSULTATION: 04/28/2018 CHIEF COMPLAINT: This is a 57-year-old man status post probable meningioma removal last month at [facility], who was admitted to this hospital on 04/24/2018 with a chief complaint of headaches. I was asked to see the patient because of headaches and fever. The patient actually has a history of migraine headaches since childhood. The headaches got far more worse prior to his surgery. He had a seizure the day before his surgery at [facility]. The patient did not have nausea or vomiting. The patient did have a surgery at [facility] and was discharged apparently to a group home rehabilitation unit. He was walking with a walker and he was doing better for a short period of time. He was admitted to [facility] on 04/24/2018. The patient had a CT scan of the brain, which revealed changes due to recent bifrontal craniotomy, likely resection of mass in the area of the anterior hemispheric fissure. There is a 6 mm thick and mixed attenuation extra-axial blood noted within the surgical bed. The patient had a CT scan of the abdomen on 04/24/2018, which was basically normal. The patient was anemic with the hemoglobin of 13.9, platelet count was 432,000, and white count was 5400. The anemia is continuing, in fact has gotten a little worse. His white count has gone up to 8300 today with a platelet count of 293,000. Sedimentation rate on 04/27/2018 was 42. Chemistries revealed normal sodiums on 04/24/2018 and 04/25/2018, but they have dropped. Today, the sodium is 133. Rest of the electrolytes are normal. Liver function tests were elevated, see the chart. The patient was placed on Neurontin 300 mg t.i.d., Keppra 500 mg q.12 h., Dilantin 100 mg 3 times a day, Benadryl, and amlodipine. The patient is seen by Dr. Ibarra on 04/26/2018 and diagnosed with low-grade fever with headache. There was elevated liver function tests, but they were "improving." The acute hepatitis panel was ordered, was negative. There was a question of a drug rash present before the antibiotics. The patient was started on vancomycin and cefepime. An MRI scan of the brain was ordered, done on 04/26/2018, which was abnormal. See the chart. The patient was apparently having left hip pain and had a x-ray of the left hip on 04/26/2018, which was negative. I was asked to see the patient in the neurologic consultation. The elevated temperature was noted initially on 04/25/2018. It does not appear a chest x-ray was done. There is no family history of neurologic disease available. PAST MEDICAL HISTORY: 1. Probable hypertension. 2. Gastroesophageal reflux disease. 3. Alcohol use. 4. Tobacco abuse ____. ALLERGIES: No known allergies. FAMILY HISTORY: Not available. The rest of the history is not available. PHYSICAL EXAMINATION: GENERAL: The patient is a well-developed well-nourished thin man lying in bed, lethargic, and somnolent. VITAL SIGNS: Blood pressure is 137/74, pulse is 110 and regular, temperature is 101.8 degrees, pulse oximetry is 99, and respiratory rate is 19. HEENT: Examination of the head, ears, eye, nose, mouth, and throat reveals a large craniotomy scar in the posterior frontal area on left side with slightly open wound on the right. There is no fluid around the wound. He has poor dentition. NECK: Basically supple laterally, anteriorly, and posteriorly. There is a little bit of stiffness, but no Kernig's or Brudzinski sign. Carotids are +2. No bruits could be appreciated. LUNGS: Clear to auscultation. CARDIOVASCULAR: PMI was not felt. JVP was not seen. The patient had a grade 2/6 nearly holosystolic murmur heard best at the apex and left sternal border increasing with respiration. ABDOMEN: Nearly scaphoid. Bowel sounds were intact. There is no tenderness, masses, or organomegaly appreciated. BACK: Was not tested. EXTREMITIES: Basically intact. NEUROLOGIC: Mental status, the patient was somnolent, awaken to voice. He knew his name, but then did not know the date or where he was. He could do 1 step commands such as "close your eyes" and "stick out your tongue." He could follow my finger on eye movements. He could raise the right hand on command. CRANIAL NERVE II: Visual esteban are probably intact. Fundi were not well visualized because of the lateral eye movement. Nothing obviously abnormal was seen. CRANIAL NERVES III, IV, AND : He had gaze evoked horizontal jerk nystagmus bilaterally. Upgaze was near normal. His pupils are approximately 4.5 to 5 mm round, light reactive. CRANIAL NERVE V: Corneal sensation appeared to be intact bilateral. CRANIAL NERVE VII: Facial strength appeared to be symmetrical bilaterally. CRANIAL NERVE VIII: Auditory acuity is partially intact. CRANIAL NERVES IX AND X: Gag is decreased. CRANIAL NERVE XI: Probably intact, i.e., 5/5. CRANIAL NERVE XII: Tongue protrudes in the midline without fasciculations or atrophy. MUSCLE EXAMINATION: Muscle bulk is symmetrically decreased. Tone is decreased. Strength is probably near 5/5 in the upper extremities. There is also asterixis noted. The lower extremity strength is probably 4/5. REFLEXES: 0 in the upper and lower extremities with downgoing toes and testing for Babinski response. COORDINATION: Could not be done in the upper extremities. SENSORY EXAMINATION: Pinprick was at least partially intact in the extremities. IMPRESSION: This patient has diffuse possibly multifocal metabolic encephalopathy. 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 He has long history of headaches. Now, it is hard to tell whether or not his headaches are related to headaches from the surgery. Headaches due to surgical complications such as CSF and low pressure from otorrhea or rhinorrhea. I doubt he has a superior sagittal sinus thrombosis. The only thing that could be significant is the Staph aureus infection noted from the scalp wound. 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 Therefore, we have to cover Staph aureus infection. Obtain a serum ammonia and arterial blood gas. Also, a lumbar puncture may be necessary for partially treated meningitis. PLAN: 1. Serum ammonia and arterial blood gas. 2. Lumbar puncture. ____ about this case. Thank you for this interesting case. Korey Parada MD DR: JOVANNA JOB#: [id number] CC:
--- NOTE | 2018-04-29 19:23 | NUR ---
HAND-OFF: Report given to Corina GLOVER.
[2018-04-29 20:00] VITALS: BP 128/81
[2018-04-29] MEDS ORDERED: Vancomycin 1gm/NS 275ml IVPB SCH ×2 (20:00)
--- NOTE | 2018-04-29 20:45 | Progress Note ---
ADDENDUM potassium, low sodium and replace the potassium. We have given follow up on this patient. We are going to call Dr. Nur____ Stacey about the patient. Korey Parada MD DR: JOHNNY JOB#: [id number] CC:
[2018-04-29] MEDS: Vancomycin 1.25gm Premix IVPB SCH (22:40)
[2018-04-30] VITALS: BP 125/81
--- NOTE | 2018-04-30 00:15 | Consultation ---
DATE OF CONSULTATION: 04/29/2018 NEPHROLOGY CONSULTATION CONSULTING PHYSICIAN: Marielena Romero M.D. REFERRING PHYSICIAN: Neri Cat D.O. REASON FOR CONSULTATION: Hyponatremia and hypokalemia. HISTORY OF PRESENT ILLNESS: The patient is a 57-year-old male, unfortunately with newly diagnosed brain neoplasm, status post craniotomy and removal about 1 month ago, history of seizure disorder, GERD, tobacco use, who presented to emergency room at [facility] on 04/24/2018, with severe frontal headache. He was consequently admitted in the hospital with intractable headache. He denies any nausea, vomiting, fever, or chills. He was admitted to the hospital. Over the course of hospital admission, the patient was found to have persistent hyponatremia. Sodium dropped to 131 and potassium was also low. I was called for management of renal disease and electrolyte imbalance. PAST MEDICAL HISTORY: Includin. History of hypertension. 2. History of brain tumor, recently was diagnosed about a month ago, status post craniotomy. 3. History of seizure disorder. 4. History of gastritis. SOCIAL HISTORY: He has positive history of smoking. There is no history of current tobacco, alcohol, or drug use. HOME MEDICATIONS: Includin. Diphenhydramine p.r.n. 2. Phenytoin 100 mg daily. 3. Nicotine patch. 4. Keppra 500 mg p.o. q.12 h. 5. Hydralazine 25 mg daily. 6. Famotidine 20 mg daily. 7. Amlodipine 10 mg daily. ALLERGIES: No known drug allergies. PAST SURGICAL HISTORY: As above. REVIEW OF SYSTEMS: The patient at this point is sedated and not able to provide meaningful history for me. PHYSICAL EXAMINATION: VITAL SIGNS: The patient has temperature of 100.4, blood pressure is 135/83, pulse rate of 112, respiratory rate of 18. HEAD AND NECK: He has scar from the craniotomy. No LAD. Extraocular movement intact. Pupils are reactive to light and accommodation. LUNGS: Clear to auscultation. CARDIAC: Regular rate and rhythm. S1 and S2. No murmur. No rub. ABDOMEN: Soft, nontender, and nondistended. EXTREMITIES: No edema. No clubbing. No cyanosis. LABORATORY AND DIAGNOSTIC DATA: Sodium 131, potassium 3.3, chloride 95, BUN of 13, creatinine of 1, glucose of 131, calcium of 8.5, total bilirubin of 4.9, direct bilirubin of 3.9, AST of 95, ALT of 175, alkaline phosphatase of 867, albumin of 2.6. CBC revealed WBC count of 9.7, hemoglobin of 13.7, hematocrit of 36, and platelet count of 290,000. UA revealed specific gravity of 1.015, protein 1+, ketone 3+, blood 1+, nitrite positive, leukocyte esterase of 1+, wbc of 2-4, rbc of 2-4, bacteria many. PT, PTT, INR within normal limit. ASSESSMENT: 1. Hypovolemic hyponatremia based on the urine which was concentrated, although the patient may have hyponatremia as a result of antiseizure medication versus SIADH. 2. Hypokalemia. 3. History of brain tumor, status post craniotomy. 4. History of seizure. PLAN FOR THE PATIENT: Check the urine sodium and potassium. If the addition of urine sodium plus potassium less than 150, the patient will benefit from normal saline. I would also mix all IV piggyback with normal saline. I would consider starting the patient on normal saline based on the patient's urine study. I would replace the potassium. Check the magnesium level. Again, I would like to thank Dr. Neri Cat for allowing me to participate in the care of this patient. Marielena Romero M.D. DR: Karen JOB#: [id number] CC:
--- NOTE | 2018-04-30 01:30 | Progress Note ---
DATE: 04/29/2018 NOTE: POOR AUDIO SUBJECTIVE: The patient's arterial blood gas reveals a low pO2 and a normal pCO2. His ammonia level is 48, which is a little high. His pO2 is 73.5. The patient's mental status was about the same as it was yesterday. PHYSICAL EXAMINATION: VITAL SIGNS: Pulse is 112, temperature is 100.4 degrees, and blood pressure is 153/84. MENTAL STATUS: He is still lethargic, but awakens to voice. He can still follow commands. Opens his eyes to commands and closes his eyes to commands. Sticks out his tongue to commands. Lifts his hands and legs to command. He is oriented to person hard to hear. CRANIAL NERVE EXAMINATION: CRANIAL NERVE II: Visual esteban intact grossly to confrontation. CRANIAL NERVES III, IV, AND : The eyes were in the midline. There was some right and left beating gaze evoked horizontal jerk nystagmus. His pupils were approximately 5 mm, round, and light reactive. CRANIAL NERVE V: Corneal sensation was intact to fine touch. CRANIAL NERVE VII: Facial strength appeared to be symmetrical bilaterally. CRANIAL NERVE VIII: Hearing was intact partially. CRANIAL NERVES IX AND X: Gag was intact. CRANIAL NERVE XI: He has probably normal strength. CRANIAL NERVE XII: Tongue protrudes in the midline. MUSCULOSKELETAL: He can move all four extremities fairly equally. There was still some asterixis noted. REFLEXES: Zero in the upper and lower extremities with downgoing toes. COORDINATION: Could not be done. SENSORY: Examination was not tested. LABORATORY DATA: His serum sodium is 131, potassium is 3.3, and chloride is 95. Albumin low. Glucose was a little elevated at 131. His total bilirubin was elevated at 4.9 with direct bilirubin 3.9. His alkaline phosphatase was still elevated . Ammonia was 48. IMPRESSION: This patient has metabolic encephalopathy. I could not hear any murmur at this time, probably . Therefore, I do not think he has culture negative endocarditis from Staph aureus. ammonia is not that high lactulose and see how he does. He probably lumbar puncture. However, he should be treated with culture negative anyway. The patient's serum sodium is low and should be fluid restriction since he could have SIADH. His potassium needs to be replenished. PLAN: 1. Keeps his sodium 135 to around 140 to 145. 2. Lactulose 30 g p.o. b.i.d. 3. serum sodium and hypokalemia. 4. GI consult. 5. Discussed the case with . Korey Parada MD DR: DARRYL JOB#: [id number] CC:
[2018-04-30 04:00] VITALS: BP 124/82
[2018-04-30] MEDS: Cefepime HCl 1 GM in NS 55 ML IVPB SCH ×2 (05:04→16:20)
[2018-04-30] MEDS: HydrALAZINE 25mg tab ORAL SCH ×3 (05:32→21:09)
[2018-04-30] MEDS: Vancomycin 1.25gm Premix IVPB SCH ×2 (06:07→13:48)
--- NOTE | 2018-04-30 07:08 | NUR ---
NURSE NOTES: Received patient from Corina RN, patient is resting comfortably, sitter at bedside, no distress noted, bed is locked and in lowest position, will continue to monitor.
--- NOTE | 2018-04-30 07:10 | NUR ---
HAND-OFF: Report given to RAYNE GLOVER.
[2018-04-30 07:52] LABS: EOSINOPHILS % (AUTO) 13.1 % (0.0-3.0); HEMATOCRIT 36.3 % (42.0-52.0); HEMOGLOBIN 12.5 G/DL (14.2-18.0); MEAN CORPUSCULAR VOLUME 96 FL (80-99); MONOCYTES % (AUTO) 10.9 % (1.0-10.0); NEUTROPHILS % (AUTO) 61.1 % (45.0-75.0); PLATELET COUNT 279 K/UL (150-450); RED BLOOD COUNT 3.77 M/UL (4.70-6.10); RED CELL DISTRIBUTION WIDTH 11.3 % (11.6-14.8); WHITE BLOOD COUNT 11.5 K/UL (4.8-10.8)
[2018-04-30 08:00] VITALS: BP 133/80
[2018-04-30 08:16] LABS: ALANINE AMINOTRANSFERASE 126 U/L (12-78); ALBUMIN 2.5 G/DL (3.4-5.0); ALBUMIN/GLOBULIN RATIO 0.7 (1.0-2.7); ALKALINE PHOSPHATASE 806 U/L (46-116); ANION GAP 8 mmol/L (5-15); ASPARTATE AMINO TRANSFERASE 79 U/L (15-37); BILIRUBIN,TOTAL 5.8 MG/DL (0.2-1.0); BLOOD UREA NITROGEN 13 mg/dL (7-18); CALCIUM 8.2 MG/DL (8.5-10.1); CARBON DIOXIDE 26 MMOL/L (21-32); CHLORIDE 98 MMOL/L (98-107); POTASSIUM 3.8 MMOL/L (3.5-5.1); SODIUM 132 MMOL/L (136-145)
[2018-04-30 08:29] LABS: BILIRUBIN,DIRECT 4.9 MG/DL (0.0-0.3)
--- NOTE | 2018-04-30 08:35 | General Progress Note ---
Assessment/Plan Problem List: (1) Head ache ICD Codes: R51 - Headache SNOMED: 95176093 (2) Weak ICD Codes: R53.1 - Weakness SNOMED: 72602122 (3) HTN (hypertension) ICD Codes: I10 - Essential (primary) hypertension SNOMED: 32508929 (4) Malnutrition ICD Codes: E46 - Unspecified protein-calorie malnutrition SNOMED: 19757731 (5) Epilepsy ICD Codes: G40.909 - Epilepsy, unspecified, not intractable, without status epilepticus SNOMED: 53275202 (6) Intractable pain ICD Codes: R52 - Pain, unspecified SNOMED: 27928618 Status: unchanged Assessment/Plan pt diet pain control neuro psyc eval abx prn cbc bmp am dc plan if clear Subjective Constitutional: Reports: weakness Allergies: Uncoded Allergies: CONTRAST (Allergy, Mild, Rash, 04/26/18) All Systems: reviewed and negative except above Subjective sleepy c/o some head ache Objective Last 24 Hour Vital Signs Date Time Temp Pulse Resp B/P (MAP) Pulse Ox O2 Delivery O2 Flow Rate FiO2 04/30/18 08:00 99.6 105 20 133/80 (97) 99 04/30/18 05:32 124/82 04/30/18 04:00 99.0 109 20 124/82 (96) 96 04/30/18 00:00 99.0 112 20 125/81 (96) 99 04/29/18 22:09 128/81 04/29/18 21:00 Room Air 04/29/18 20:00 99.3 106 20 128/81 (97) 96 04/29/18 16:00 99.8 108 18 128/84 (99) 98 04/29/18 14:00 111/63 04/29/18 12:00 100.0 106 16 111/63 (79) 99 04/29/18 09:21 112 133/84 Intake and Output 04/29/18 04/30/18 18:59 06:59 Intake Total 240 ml 856.666 ml Output Total 630 ml 301 ml Balance -390 ml 555.666 ml Intake Oral 240 ml IV Total 856.666 ml Output Urine Total 630 ml 301 ml # Voids 3 Laboratory Tests 04/29/18 10:31: Anti-Nuclear Antibody Screen [Pending], F-Actin IgG Antibody [Pending] 04/29/18 15:45: Urine Eosinophils None seen, Urine Random Creatinine [Pending], Urine Random Microalbumin [Pending], Urine Random Total Protein 49H, Urine Random Sodium < 20L, Urine Creatinine 111.7, Urine Microalbumin/Creatinine Ratio [Pending] 04/29/18 19:40: Vancomycin Level Trough 11.9 04/30/18 06:30: White Blood Count 11.5H, Red Blood Count 3.77L, Hemoglobin 12.5L, Hematocrit 36.3L, Mean Corpuscular Volume 96, Mean Corpuscular Hemoglobin 33.2H, Mean Corpuscular Hemoglobin Concent 34.5, Red Cell Distribution Width 11.3L, Platelet Count 279, Mean Platelet Volume 5.9L, Neutrophils (%) (Auto) 61.1, Lymphocytes (%) (Auto) 14.0L, Monocytes (%) (Auto) 10.9H, Eosinophils (%) (Auto ) 13.1H, Basophils (%) (Auto) 1.0, Sodium Level 132L, Potassium Level 3.8, Chloride Level 98, Carbon Dioxide Level 26, Anion Gap 8, Blood Urea Nitrogen 13 , Creatinine 1.0, Estimat Glomerular Filtration Rate > 60, Glucose Level 152H, Calcium Level 8.2L, Total Bilirubin 5.8H, Direct Bilirubin [Pending], Aspartate Amino Transf (AST/SGOT) 79H, Alanine Aminotransferase (ALT/SGPT) 126H, Alkaline Phosphatase 806H, Total Protein 5.9L, Albumin 2.5L, Globulin 3.4, Albumin/ Globulin Ratio 0.7L Height (Feet): 5 Height (Inches): 11.00 Weight (Pounds): 145 General Appearance: lethargic EENT: normal ENT inspection Neck: normal alignment Cardiovascular: normal peripheral pulses, normal rate, regular rhythm Respiratory/Chest: chest wall non-tender, lungs clear, normal breath sounds Abdomen: normal bowel sounds, non tender, soft Extremities: normal inspection Edema: no edema noted Arm (L), no edema noted Arm (R), no edema noted Leg (L), no edema noted Leg (R), no edema noted Pedal (L), no edema noted Pedal (R), no edema noted Generalized Neurologic: motor weakness Skin: normal pigmentation, warm/dry Neri Cat DO Apr 30, 2018 08:35
[2018-04-30] MEDS: Phenytoin 100mg cap ORAL SCH ×3 (08:43→18:01)
[2018-04-30] MEDS: Lactulose 10gm/15ml UDC ORAL SCH ×3 (08:43→18:01)
[2018-04-30] MEDS: Heparin 5000 units/ml inj SUBQ SCH ×2 (08:46→21:14)
--- NOTE | 2018-04-30 09:08 | General Progress Note ---
Assessment/Plan Assessment/Plan (1) Headache (2) Brain neoplasm s/p craniotomy and resection Patient to be continued on Neurontin and Percocet. D/w Dr. Delarosa and he concurred. Subjective Date patient seen: Apr 30, 2018 Time patient seen: 08:15 - am Allergies: Uncoded Allergies: CONTRAST (Allergy, Mild, Rash, 04/26/18) Subjective REVIEW OF SYSTEMS: Denies rash, fever, chills, sweating, dizziness, drowsiness, blurred vision, sore throat, or change in his weight. No shortness of breath, chest pain, palpitations, or cough. No nausea, vomiting, diarrhea, or blood in stool or urine. He complains of headaches. SUBJECTIVE: Patient is comfortable and tolerated on the Percocet. No signs of pain or distress at this time. Objective Last 24 Hour Vital Signs Date Time Temp Pulse Resp B/P (MAP) Pulse Ox O2 Delivery O2 Flow Rate FiO2 04/30/18 08:43 105 133/80 04/30/18 08:00 99.6 105 20 133/80 (97) 99 04/30/18 05:32 124/82 04/30/18 04:00 99.0 109 20 124/82 (96) 96 04/30/18 00:00 99.0 112 20 125/81 (96) 99 04/29/18 22:09 128/81 04/29/18 21:00 Room Air 04/29/18 20:00 99.3 106 20 128/81 (97) 96 04/29/18 16:00 99.8 108 18 128/84 (99) 98 04/29/18 14:00 111/63 04/29/18 12:00 100.0 106 16 111/63 (79) 99 04/29/18 09:21 112 133/84 Intake and Output 04/29/18 04/30/18 18:59 06:59 Intake Total 240 ml 856.666 ml Output Total 630 ml 301 ml Balance -390 ml 555.666 ml Intake Oral 240 ml IV Total 856.666 ml Output Urine Total 630 ml 301 ml # Voids 3 Laboratory Tests 04/29/18 10:31: Anti-Nuclear Antibody Screen [Pending], F-Actin IgG Antibody [Pending] 04/29/18 15:45: Urine Eosinophils None seen, Urine Random Creatinine [Pending], Urine Random Microalbumin [Pending], Urine Random Total Protein 49H, Urine Random Sodium < 20L, Urine Creatinine 111.7, Urine Microalbumin/Creatinine Ratio [Pending] 04/29/18 19:40: Vancomycin Level Trough 11.9 04/30/18 06:30: White Blood Count 11.5H, Red Blood Count 3.77L, Hemoglobin 12.5L, Hematocrit 36.3L, Mean Corpuscular Volume 96, Mean Corpuscular Hemoglobin 33.2H, Mean Corpuscular Hemoglobin Concent 34.5, Red Cell Distribution Width 11.3L, Platelet Count 279, Mean Platelet Volume 5.9L, Neutrophils (%) (Auto) 61.1, Lymphocytes (%) (Auto) 14.0L, Monocytes (%) (Auto) 10.9H, Eosinophils (%) (Auto ) 13.1H, Basophils (%) (Auto) 1.0, Sodium Level 132L, Potassium Level 3.8, Chloride Level 98, Carbon Dioxide Level 26, Anion Gap 8, Blood Urea Nitrogen 13 , Creatinine 1.0, Estimat Glomerular Filtration Rate > 60, Glucose Level 152H, Calcium Level 8.2L, Total Bilirubin 5.8H, Direct Bilirubin 4.9H, Aspartate Amino Transf (AST/SGOT) 79H, Alanine Aminotransferase (ALT/SGPT) 126H, Alkaline Phosphatase 806H, Total Protein 5.9L, Albumin 2.5L, Globulin 3.4, Albumin/ Globulin Ratio 0.7L Height (Feet): 5 Height (Inches): 11.00 Weight (Pounds): 145 Objective GENERAL: Alert, awake, and oriented. LUNGS: Clear bilaterally. HEART: S1 and S2, regular. ABDOMEN: Soft and nontender. EXTREMITIES: No cyanosis. No clubbing. No edema. NEURO: No changes. Albert Hoyos Apr 30, 2018 09:08
--- NOTE | 2018-04-30 09:23 | General Progress Note ---
Assessment/Plan Problem List: (1) History of craniotomy ICD Codes: Z98.890 - Other specified postprocedural states SNOMED: 55220964, 110003828 (2) Intractable pain ICD Codes: R52 - Pain, unspecified SNOMED: 16476620 (3) HTN (hypertension) ICD Codes: I10 - Essential (primary) hypertension SNOMED: 76501280 (4) Brain tumor ICD Codes: D49.6 - Neoplasm of unspecified behavior of brain SNOMED: 590137830 (5) Elevated alkaline phosphatase level ICD Codes: R74.8 - Abnormal levels of other serum enzymes SNOMED: 008854506 (6) Transaminitis ICD Codes: R74.0 - Nonspecific elevation of levels of transaminase and lactic acid dehydrogenase [LDH] SNOMED: 231712422, 468591950 (7) Anemia ICD Codes: D64.9 - Anemia, unspecified SNOMED: 683909904 Assessment/Plan Head CT reviewed lipase normal abdominal US reviewed, negative follow Hepatitis panel, negative OB stool r/o GI bleed monitor H&H, prn transfusions bowel regime ppi MRCP ordered AMA and REHAN ordered dilantin levels ordered lactulose add xifaxan repeat ammonia level in am Outpatient GI procedures Subjective ROS Limited/Unobtainable: Yes Allergies: Uncoded Allergies: CONTRAST (Allergy, Mild, Rash, 04/26/18) Objective Last 24 Hour Vital Signs Date Time Temp Pulse Resp B/P (MAP) Pulse Ox O2 Delivery O2 Flow Rate FiO2 04/30/18 08:43 105 133/80 04/30/18 08:00 99.6 105 20 133/80 (97) 99 04/30/18 05:32 124/82 04/30/18 04:00 99.0 109 20 124/82 (96) 96 04/30/18 00:00 99.0 112 20 125/81 (96) 99 04/29/18 22:09 128/81 04/29/18 21:00 Room Air 04/29/18 20:00 99.3 106 20 128/81 (97) 96 04/29/18 16:00 99.8 108 18 128/84 (99) 98 04/29/18 14:00 111/63 04/29/18 12:00 100.0 106 16 111/63 (79) 99 Intake and Output 04/29/18 04/30/18 18:59 06:59 Intake Total 240 ml 856.666 ml Output Total 630 ml 301 ml Balance -390 ml 555.666 ml Intake Oral 240 ml IV Total 856.666 ml Output Urine Total 630 ml 301 ml # Voids 3 Laboratory Tests 04/29/18 10:31: Anti-Nuclear Antibody Screen [Pending], F-Actin IgG Antibody [Pending] 04/29/18 15:45: Urine Eosinophils None seen, Urine Random Creatinine [Pending], Urine Random Microalbumin [Pending], Urine Random Total Protein 49H, Urine Random Sodium < 20L, Urine Creatinine 111.7, Urine Microalbumin/Creatinine Ratio [Pending] 04/29/18 19:40: Vancomycin Level Trough 11.9 04/30/18 06:30: White Blood Count 11.5H, Red Blood Count 3.77L, Hemoglobin 12.5L, Hematocrit 36.3L, Mean Corpuscular Volume 96, Mean Corpuscular Hemoglobin 33.2H, Mean Corpuscular Hemoglobin Concent 34.5, Red Cell Distribution Width 11.3L, Platelet Count 279, Mean Platelet Volume 5.9L, Neutrophils (%) (Auto) 61.1, Lymphocytes (%) (Auto) 14.0L, Monocytes (%) (Auto) 10.9H, Eosinophils (%) (Auto ) 13.1H, Basophils (%) (Auto) 1.0, Sodium Level 132L, Potassium Level 3.8, Chloride Level 98, Carbon Dioxide Level 26, Anion Gap 8, Blood Urea Nitrogen 13 , Creatinine 1.0, Estimat Glomerular Filtration Rate > 60, Glucose Level 152H, Calcium Level 8.2L, Total Bilirubin 5.8H, Direct Bilirubin 4.9H, Aspartate Amino Transf (AST/SGOT) 79H, Alanine Aminotransferase (ALT/SGPT) 126H, Alkaline Phosphatase 806H, Total Protein 5.9L, Albumin 2.5L, Globulin 3.4, Albumin/ Globulin Ratio 0.7L Height (Feet): 5 Height (Inches): 11.00 Weight (Pounds): 145 General Appearance: no apparent distress EENT: scleral icterus Neck: supple Cardiovascular: normal rate Respiratory/Chest: decreased breath sounds Abdomen: normal bowel sounds, non tender, soft Extremities: non-tender Barry Kimball MD Apr 30, 2018 09:23
[2018-04-30 11:36] VITALS: BP 118/77
--- NOTE | 2018-04-30 14:51 | Nephrology Progress Note ---
Assessment/Plan Assessment 1. Hypovolemic hyponatremia based on the urine which was concentrated, although the patient may have hyponatremia as a result of antiseizure medication versus SIADH. 2. Hypokalemia. 3. History of brain tumor, status post craniotomy. 4. History of seizure. Plan increase ivf monitoring renal function avoid NSAID Mix all ivpb with NS.9 Subjective Constitutional: Reports: no symptoms HEENT: Reports: no symptoms Genitourinary: Reports: no symptoms Neurologic/Psychiatric: Reports: no symptoms Subjective alert and awake very low intake less than 25% of his tray Objective Objective Last 24 Hour Vital Signs Date Time Temp Pulse Resp B/P (MAP) Pulse Ox O2 Delivery O2 Flow Rate FiO2 04/30/18 13:48 118/77 04/30/18 11:36 100.1 109 21 118/77 (91) 04/30/18 08:45 Room Air 04/30/18 08:43 105 133/80 04/30/18 08:00 99.6 105 20 133/80 (97) 99 04/30/18 05:32 124/82 04/30/18 04:00 99.0 109 20 124/82 (96) 96 04/30/18 00:00 99.0 112 20 125/81 (96) 99 04/29/18 22:09 128/81 04/29/18 21:00 Room Air 04/29/18 20:00 99.3 106 20 128/81 (97) 96 04/29/18 16:00 99.8 108 18 128/84 (99) 98 Intake and Output 04/29/18 04/30/18 19:00 07:00 Intake Total 240 ml 856.666 ml Output Total 630 ml 301 ml Balance -390 ml 555.666 ml Intake Oral 240 ml IV Total 856.666 ml Output Urine Total 630 ml 301 ml # Voids 3 Laboratory Tests 04/29/18 15:45: Urine Eosinophils None seen, Urine Random Creatinine [Pending], Urine Random Microalbumin [Pending], Urine Random Total Protein 49H, Urine Random Sodium < 20L, Urine Creatinine 111.7, Urine Microalbumin/Creatinine Ratio [Pending] 04/29/18 19:40: Vancomycin Level Trough 11.9 04/30/18 06:30: White Blood Count 11.5H, Red Blood Count 3.77L, Hemoglobin 12.5L, Hematocrit 36.3L, Mean Corpuscular Volume 96, Mean Corpuscular Hemoglobin 33.2H, Mean Corpuscular Hemoglobin Concent 34.5, Red Cell Distribution Width 11.3L, Platelet Count 279, Mean Platelet Volume 5.9L, Neutrophils (%) (Auto) 61.1, Lymphocytes (%) (Auto) 14.0L, Monocytes (%) (Auto) 10.9H, Eosinophils (%) (Auto ) 13.1H, Basophils (%) (Auto) 1.0, Sodium Level 132L, Potassium Level 3.8, Chloride Level 98, Carbon Dioxide Level 26, Anion Gap 8, Blood Urea Nitrogen 13 , Creatinine 1.0, Estimat Glomerular Filtration Rate > 60, Glucose Level 152H, Calcium Level 8.2L, Total Bilirubin 5.8H, Direct Bilirubin 4.9H, Aspartate Amino Transf (AST/SGOT) 79H, Alanine Aminotransferase (ALT/SGPT) 126H, Alkaline Phosphatase 806H, Total Protein 5.9L, Albumin 2.5L, Globulin 3.4, Albumin/ Globulin Ratio 0.7L, Anti-Mitochondrial Antibody [Pending] Height (Feet): 5 Height (Inches): 11.00 Weight (Pounds): 145 Objective HEAD AND NECK: He has scar from the craniotomy. No LAD. Extraocular movement intact. Pupils are reactive to light and accommodation. LUNGS: Clear to auscultation. CARDIAC: Regular rate and rhythm. S1 and S2. No murmur. No rub. ABDOMEN: Soft, nontender, and nondistended. EXTREMITIES: No edema. No clubbing. No cyanosis. Marielena Romero MD Apr 30, 2018 14:51
--- NOTE | 2018-04-30 15:22 | NUR ---
NURSE NOTES: RN spoke with pharmacy regarding all piggy back medications being mixed with Normal Saline per Dr. Romero, spoke with pharmacist.
[2018-04-30 15:47] VITALS: BP 119/69
--- NOTE | 2018-04-30 15:54 | NUR ---
CASE MANAGEMENT: REVIEW 04/30/2018 SI: DEHYDRATION. INTRACTABLE PAIN. T 101.4 HR 110 RR 22 B/P 119/69 SATS 96% ON RA WBC 11.5 NA 132 GLU 152 CA 8.2 AST 79 ALT 126 ALP 806 IS: VANCO IV Q8HR CEFEPIME IV Q12KHR KEPPRA PO Q12HR IVF @ 100 mL/HR MED/SURG STATUS DCP: PATIENT IS FROM [facility]
--- NOTE | 2018-04-30 19:16 | NUR ---
HAND-OFF: Report given to Carmen GLOVER.
[2018-04-30 19:58] VITALS: BP 111/71
--- NOTE | 2018-04-30 20:00 | NUR ---
NURSE NOTES: Received patient in bed, with AM sitter by bedside. Informed by supervisor incising that PM sitter will be late for the shift. IV on RFA running fluids. HOB 30 degrees up. Rails up and padded. Condom cath intact. Bed in lowest position, locked, alarms on. Call light in reach.
[2018-04-30] MEDS: LORazepam Inj 2mg/ml 1ml IVP PRN (21:47)
[2018-04-30] MEDS ORDERED: Vancomycin 1.25 GM in NS 275 ML IVPB SCH (22:00)
[2018-04-30] MEDS: Vancomycin 1 GM in NS 275 ML IVPB SCH (22:53)
[2018-05-01] VITALS (7 sets, daily range): BP systolic 106–120; BP diastolic 58–79
[2018-05-01] MEDS: Cefepime HCl 1 GM in NS 55 ML IVPB SCH (04:43)
[2018-05-01] MEDS: HydrALAZINE 25mg tab ORAL SCH ×4 (05:09→22:13)
[2018-05-01] MEDS: Vancomycin 1 GM in NS 275 ML IVPB SCH ×3 (05:12→22:00)
[2018-05-01] MEDS: LORazepam Inj 2mg/ml 1ml IVP PRN (05:35)
[2018-05-01 07:13] LABS: HEMATOCRIT 35.6 % (42.0-52.0); HEMOGLOBIN 12.1 G/DL (14.2-18.0); MEAN CORPUSCULAR VOLUME 97 FL (80-99); PLATELET COUNT 269 K/UL (150-450); RED BLOOD COUNT 3.67 M/UL (4.70-6.10); RED CELL DISTRIBUTION WIDTH 12.1 % (11.6-14.8); WHITE BLOOD COUNT 11.2 K/UL (4.8-10.8)
[2018-05-01 07:28] LABS: ALANINE AMINOTRANSFERASE 107 U/L (12-78); ALBUMIN 2.2 G/DL (3.4-5.0); ALBUMIN/GLOBULIN RATIO 0.6 (1.0-2.7); ALKALINE PHOSPHATASE 831 U/L (46-116); ANION GAP 7 mmol/L (5-15); ASPARTATE AMINO TRANSFERASE 81 U/L (15-37); BILIRUBIN,TOTAL 6.7 MG/DL (0.2-1.0); BLOOD UREA NITROGEN 15 mg/dL (7-18); CALCIUM 8.2 MG/DL (8.5-10.1); CARBON DIOXIDE 25 MMOL/L (21-32); CHLORIDE 102 MMOL/L (98-107); CREATININE 1.4 MG/DL (0.55-1.30); POTASSIUM 3.8 MMOL/L (3.5-5.1); SODIUM 134 MMOL/L (136-145)
[2018-05-01 07:33] LABS: BILIRUBIN,DIRECT 5.6 MG/DL (0.0-0.3)
--- NOTE | 2018-05-01 07:39 | NUR ---
HAND-OFF: Report given to Oli GLOVER.
--- NOTE | 2018-05-01 07:40 | NUR ---
NURSE NOTES: Received patient on bed, asleep. Sitter at bedside. IV site intact and patent. Bed in low and locked position, call light in reach. No signs of respiratory distress or pain. Room board updated, will continue to monitor.
--- NOTE | 2018-05-01 08:47 | General Progress Note ---
Assessment/Plan Assessment/Plan (1) Headache (2) Brain neoplasm s/p craniotomy and resection Patient to be continued on Neurontin and Percocet. D/w Dr. Delarosa and he concurred. Subjective Date patient seen: May 01, 2018 Time patient seen: 07:00 - am Allergies: Coded Allergies: GADOBUTROL (Verified Allergy, Intermediate, 04/30/18) Uncoded Allergies: CONTRAST (Allergy, Mild, Rash, 04/26/18) Subjective REVIEW OF SYSTEMS: Denies rash, fever, chills, sweating, dizziness, drowsiness, blurred vision, sore throat, or change in his weight. No shortness of breath, chest pain, palpitations, or cough. No nausea, vomiting, diarrhea, or blood in stool or urine. He complains of headaches. SUBJECTIVE: Patient continues to c/o pain which has been tolerated on the Percocet. He has no new complaints at this time. Objective Last 24 Hour Vital Signs Date Time Temp Pulse Resp B/P (MAP) Pulse Ox O2 Delivery O2 Flow Rate FiO2 05/01/18 08:04 97.5 101 20 120/63 (82) 95 05/01/18 05:09 113/58 05/01/18 04:00 99.9 106 20 113/58 (76) 99 05/01/18 00:00 99.6 104 21 107/59 (75) 94 04/30/18 21:09 111/71 04/30/18 21:00 Room Air 04/30/18 19:58 100.1 109 22 111/71 (84) 95 04/30/18 18:31 101.0 04/30/18 15:47 101.4 110 22 119/69 (86) 96 04/30/18 13:48 118/77 04/30/18 11:36 100.1 109 21 118/77 (91) Intake and Output 04/30/18 05/01/18 18:59 06:59 Intake Total 400 ml 965.000 ml Output Total 600 ml Balance 400 ml 365.000 ml Intake Oral 60 ml IV Total 905.000 ml Other 400 ml Output Urine Total 600 ml Laboratory Tests 04/30/18 20:44: Vancomycin Level Trough 21.5H 05/01/18 06:05: White Blood Count 11.2H, Red Blood Count 3.67L, Hemoglobin 12.1L, Hematocrit 35.6L, Mean Corpuscular Volume 97, Mean Corpuscular Hemoglobin 32.9H, Mean Corpuscular Hemoglobin Concent 33.9, Red Cell Distribution Width 12.1, Platelet Count 269, Mean Platelet Volume 5.9L, Neutrophils (%) (Auto) , Lymphocytes (%) ( Auto) , Monocytes (%) (Auto) , Eosinophils (%) (Auto) , Basophils (%) (Auto) , Neutrophils % (Manual) [Pending], Lymphocytes % (Manual) [Pending], Platelet Estimate [Pending], Platelet Morphology [Pending], Sodium Level 134L, Potassium Level 3.8, Chloride Level 102, Carbon Dioxide Level 25, Anion Gap 7, Blood Urea Nitrogen 15, Creatinine 1.4H, Estimat Glomerular Filtration Rate > 60, Glucose Level 132H, Calcium Level 8.2L, Total Bilirubin 6.7H, Direct Bilirubin 5.6H, Aspartate Amino Transf (AST/SGOT) 81H, Alanine Aminotransferase (ALT/SGPT) 107H , Alkaline Phosphatase 831H, Ammonia 63H, Total Protein 5.7L, Albumin 2.2L, Globulin 3.5, Albumin/Globulin Ratio 0.6L, Phenytoin (Dilantin) Level 38.4*H Height (Feet): 5 Height (Inches): 11.00 Weight (Pounds): 145 Objective GENERAL: Alert, awake, and oriented. LUNGS: Clear bilaterally. HEART: S1 and S2, regular. ABDOMEN: Soft and nontender. EXTREMITIES: No cyanosis. No clubbing. No edema. NEURO: No changes. Albert Hoyos May 01, 2018 08:47
[2018-05-01] MEDS: Lactulose 10gm/15ml UDC ORAL SCH ×4 (09:00→18:33)
[2018-05-01] MEDS: Heparin 5000 units/ml inj SUBQ SCH ×2 (09:00→22:00)
--- NOTE | 2018-05-01 09:23 | NUR ---
MRCP COMPLETED. PT ALLERGIC TO MRI CONTRAST, PER ALLERGY NOTES. EXAM DONE HAS AN MRCP, WHICH IS HOW DR. STEEN ORDERED THE EXAM. YANET
--- NOTE | 2018-05-01 11:00 | Diagnostic Imaging Report ---
Indication: Abdominal pain, abnormal liver function tests Technique: Coronal and axial single shot fast spin-echo breath-hold, axial T2 FRFSE, 2-D thick slab MRCP, AXIAL 2-D FIESTA fat saturated, axial 3-D dual echo breath-hold, water weighted axial LAVA FLEX, revealed 3-D MRCP images were obtained of the abdomen. MIP reconstructions were generated of the bile ducts Comparison: Abdominal ultrasound dated 04/24/2018, abdomen pelvis CT 06/20/2010 Findings: There is some image degradation due to motion artifact. The gallbladder wall appears edematous, and there is some pericholecystic fluid. No gallbladder calculi are demonstrated, however. There is no biliary ductal dilatation. The pancreatic duct is not well visualized but does not appear to be dilated. There is evidence of periportal edema. The liver, pancreas, spleen, adrenals, left kidney are grossly unremarkable. The right kidney demonstrates tiny cysts no gross pelvic mass. Impression: No definite gallstones. However, there is gallbladder wall edema and pericholecystic fluid. Could indicate acalculous acute cholecystitis or cholecystitis due to an occult calculus. Alternatively, this could represent reactive changes secondary to adjacent hepatocellular inflammation. Consider hepatobiliary nuclear scan if there is high clinical suspicion for acute cholecystitis. Negative for biliary ductal dilatation. Periportal edema. This can be seen acute hepatitis or right heart failure, among other possibilities
--- NOTE | 2018-05-01 11:11 | GI Progress Note ---
Assessment/Plan Problems: (1) Weak ICD Codes: R53.1 - Weakness SNOMED: 29453753 (2) Malnutrition ICD Codes: E46 - Unspecified protein-calorie malnutrition SNOMED: 94213707 (3) Brain tumor ICD Codes: D49.6 - Neoplasm of unspecified behavior of brain SNOMED: 667990138 (4) Transaminitis ICD Codes: R74.0 - Nonspecific elevation of levels of transaminase and lactic acid dehydrogenase [LDH] SNOMED: 800795063, 803048343 (5) Anemia ICD Codes: D64.9 - Anemia, unspecified SNOMED: 780933178 (6) Intractable pain ICD Codes: R52 - Pain, unspecified SNOMED: 08065477 Status: unchanged Status Narrative Discussed with Dr. Kimball Assessment/Plan Head CT reviewed lipase normal abdominal US reviewed, negative follow Hepatitis panel, negative MRCP reviewed, negative for common bile duct dilation. Possible cholecystitis. OB stool r/o GI bleed monitor H&H, prn transfusions bowel regime ppi AMA and REHAN ordered Dilantin levels ordered lactulose add xifaxan repeat ammonia level in am Outpatient GI procedures The patient was seen and examined at bedside and all new and available data was reviewed in the patients chart. I agree with the above findings, impression and plan. (Patient seen earlier today. Signature stamp does not reflect patient encounter time.). - Barry Kimball MD Subjective Subjective REES Objective Last 24 Hour Vital Signs Date Time Temp Pulse Resp B/P (MAP) Pulse Ox O2 Delivery O2 Flow Rate FiO2 05/01/18 08:04 97.5 101 20 120/63 (82) 95 05/01/18 05:09 113/58 05/01/18 04:00 99.9 106 20 113/58 (76) 99 05/01/18 00:00 99.6 104 21 107/59 (75) 94 04/30/18 21:09 111/71 04/30/18 21:00 Room Air 04/30/18 19:58 100.1 109 22 111/71 (84) 95 04/30/18 18:31 101.0 04/30/18 15:47 101.4 110 22 119/69 (86) 96 04/30/18 13:48 118/77 04/30/18 11:36 100.1 109 21 118/77 (91) Intake and Output 04/30/18 05/01/18 18:59 06:59 Intake Total 400 ml 965.000 ml Output Total 600 ml Balance 400 ml 365.000 ml Intake Oral 60 ml IV Total 905.000 ml Other 400 ml Output Urine Total 600 ml Laboratory Tests Test 04/30/18 20:44 05/01/18 06:05 Vancomycin Level Trough 21.5 ug/mL (5.0-12.0) H White Blood Count 11.2 K/UL (4.8-10.8) H Red Blood Count 3.67 M/UL (4.70-6.10) L Hemoglobin 12.1 G/DL (14.2-18.0) L Hematocrit 35.6 % (42.0-52.0) L Mean Corpuscular Volume 97 FL (80-99) Mean Corpuscular Hemoglobin 32.9 PG (27.0-31.0) H Mean Corpuscular Hemoglobin Concent 33.9 G/DL (32.0-36.0) Red Cell Distribution Width 12.1 % (11.6-14.8) Platelet Count 269 K/UL (150-450) Mean Platelet Volume 5.9 FL (6.5-10.1) L Neutrophils (%) (Auto) % (45.0-75.0) Lymphocytes (%) (Auto) % (20.0-45.0) Monocytes (%) (Auto) % (1.0-10.0) Eosinophils (%) (Auto) % (0.0-3.0) Basophils (%) (Auto) % (0.0-2.0) Neutrophils % (Manual) Pending Lymphocytes % (Manual) Pending Platelet Estimate Pending Platelet Morphology Pending Sodium Level 134 MMOL/L (136-145) L Potassium Level 3.8 MMOL/L (3.5-5.1) Chloride Level 102 MMOL/L (98-107) Carbon Dioxide Level 25 MMOL/L (21-32) Anion Gap 7 mmol/L (5-15) Blood Urea Nitrogen 15 mg/dL (7-18) Creatinine 1.4 MG/DL (0.55-1.30) H Estimat Glomerular Filtration Rate > 60 mL/min (>60) Glucose Level 132 MG/DL (74-106) H Calcium Level 8.2 MG/DL (8.5-10.1) L Total Bilirubin 6.7 MG/DL (0.2-1.0) H Direct Bilirubin 5.6 MG/DL (0.0-0.3) H Aspartate Amino Transf (AST/SGOT) 81 U/L (15-37) H Alanine Aminotransferase (ALT/SGPT) 107 U/L (12-78) H Alkaline Phosphatase 831 U/L (46-116) H Ammonia 63 umol/L (11-32) H Total Protein 5.7 G/DL (6.4-8.2) L Albumin 2.2 G/DL (3.4-5.0) L Globulin 3.5 g/dL Albumin/Globulin Ratio 0.6 (1.0-2.7) L Phenytoin (Dilantin) Level 38.4 ug/mL (10-20) *H Height (Feet): 5 Height (Inches): 11.00 Weight (Pounds): 145 General Appearance: no apparent distress, alert Cardiovascular: normal rate Respiratory/Chest: normal breath sounds, no respiratory distress Abdominal Exam: normal bowel sounds, non tender, soft Extremities: non-tender Bhupendra Barriga NP May 01, 2018 11:11
--- NOTE | 2018-05-01 11:38 | NUR ---
NURSE NOTES: Notified MD Parada of critical lab value of phenytoin 38.4. New orders received to stop medication and get level tomorrow in the morning. Charge nurse aware.
--- NOTE | 2018-05-01 12:50 | Infectious Diseases Prog Note ---
Assessment/Plan Assessment/Plan Assessment: Sepsis; improving- likely due to probable acute acalculous cholecystitis Fever , ongoing ?PNA -CXR: Mildly increased interstitial markings. This is nonspecific and cannot exclude a mild bronchitis or interstitial pneumonitis. No focal consolidation. -wound cx craniotomy incision: MSSA (wound doesnt appaer infected) -bcx NTD -influenza sc neg Headache- MRI shows post-surgical findings, no obvious abscess- r/o nosocomial meningitis -04/26 MRI Brain w/wo: Evidence of recent resection of a mass centered about the inferior aspect of the anterior interhemispheric fissure, a typical location for meningioma. Please correlate with the surgical history. Some enhancement of the dura along the anterior interhemispheric fissure and within the surgical bed is not unexpected given the recent surgery. However, the possibility of residual neoplasm is not excludable. There are no reference studies to compare to the preoperative MRI available. Other notable postsurgical finding includes a small fluid collection within the surgical bed deep to the bifrontal craniotomy flap and mild edema within the frontal lobes -CT brain wo: Postsurgical changes associated with relatively recent bifrontal craniotomy likely resection of a mass in the area of the interhemispheric fissure. 6 mm thick mixed attenuation extra-axial blood noted within the surgical bed. Please correlate with the operative report and comparison with prior studies is strongly recommended. -ESR 42, CRP 16.2 -HIV ag/ab neg Recent Brain tumor removal (1 month ago) No leukocytosis Elevated LFTs, improving Elev alk and Leno )ALP >> AST, ALT)- Probasble Acute acalculous cholecystitis -MRCP:No definite gallstones. However, there is gallbladder wall edema and pericholecystic fluid. Could indicate acalculous acute cholecystitis or cholecystitis due to an occult calculus. Alternatively, this could represent reactive changes secondary to adjacent hepatocellular inflammation. Consider hepatobiliary nuclear scan if there is high clinical suspicion for acute cholecystitis. Negative for biliary ductal dilatation. Periportal edema. This can be seen acute hepatitis or right heart failure, among other possibilities -Abd US: No acute findings. -Acute hep panel neg seizure disorder GERD Tobacco use Drug rash-?culprit (present before antibiotics) Plan: -Continue empiric IV Vancomycin #6 and switch Cefepime # 6 to Meropenem given ongoing fevers and leukocytosis -sp cx -f/u cx -Monitor CBC/CMP, temperatures -management of drug rash per primary -HIDA scan, Sx eval Discussed with RN and Dr Donnelly Subjective Allergies: Coded Allergies: GADOBUTROL (Verified Allergy, Intermediate, 04/30/18) Uncoded Allergies: CONTRAST (Allergy, Mild, Rash, 04/26/18) Subjective Tm 101.4 mild leukocytosis Bcx NTD Objective Vital Signs Last 24 Hour Vital Signs Date Time Temp Pulse Resp B/P (MAP) Pulse Ox O2 Delivery O2 Flow Rate FiO2 05/01/18 12:00 98.8 101 20 106/69 (81) 100 05/01/18 09:00 Room Air 05/01/18 08:04 97.5 101 20 120/63 (82) 95 05/01/18 05:09 113/58 05/01/18 04:00 99.9 106 20 113/58 (76) 99 05/01/18 00:00 99.6 104 21 107/59 (75) 94 04/30/18 21:09 111/71 04/30/18 21:00 Room Air 04/30/18 19:58 100.1 109 22 111/71 (84) 95 04/30/18 18:31 101.0 04/30/18 15:47 101.4 110 22 119/69 (86) 96 04/30/18 13:48 118/77 Height (Feet): 5 Height (Inches): 11.00 Weight (Pounds): 145 Objective HEAD: craniotomy scar with some superficial ulceration on R left side- no signs of infection GENERAL: Anxious in bed, oriented x2, in no acute distress. CARDIOVASCULAR: No murmur. LUNGS: Distant and clear. ABDOMEN: Bowel sounds positive. Nontender. Nondistended. EXTREMITIES: No cyanosis, clubbing, or edema. NEUROLOGIC: The patient moves all extremities. Slight weakness in extremities. Skin: maculopapular rash in torso, arms Microbiology Date/Time Source Procedure Growth Status 04/28/18 17:55 Blood Blood Culture - Preliminary NO GROWTH AFTER 48 HOURS Resulted 04/28/18 17:50 Blood Blood Culture - Preliminary NO GROWTH AFTER 48 HOURS Resulted 04/28/18 21:50 Urine,Clean Catch Urine Culture - Final NO GROWTH AFTER 48 HOURS Complete Laboratory Tests Test 04/30/18 20:44 05/01/18 06:05 Vancomycin Level Trough 21.5 ug/mL (5.0-12.0) H White Blood Count 11.2 K/UL (4.8-10.8) H Red Blood Count 3.67 M/UL (4.70-6.10) L Hemoglobin 12.1 G/DL (14.2-18.0) L Hematocrit 35.6 % (42.0-52.0) L Mean Corpuscular Volume 97 FL (80-99) Mean Corpuscular Hemoglobin 32.9 PG (27.0-31.0) H Mean Corpuscular Hemoglobin Concent 33.9 G/DL (32.0-36.0) Red Cell Distribution Width 12.1 % (11.6-14.8) Platelet Count 269 K/UL (150-450) Mean Platelet Volume 5.9 FL (6.5-10.1) L Neutrophils (%) (Auto) % (45.0-75.0) Lymphocytes (%) (Auto) % (20.0-45.0) Monocytes (%) (Auto) % (1.0-10.0) Eosinophils (%) (Auto) % (0.0-3.0) Basophils (%) (Auto) % (0.0-2.0) Differential Total Cells Counted 100 Neutrophils % (Manual) 65 % (45-75) Lymphocytes % (Manual) 12 % (20-45) L Monocytes % (Manual) 7 % (1-10) Eosinophils % (Manual) 16 % (0-3) H Basophils % (Manual) 0 % (0-2) Band Neutrophils 0 % (0-8) Platelet Estimate Adequate Platelet Morphology Normal Red Blood Cell Morphology Normal Sodium Level 134 MMOL/L (136-145) L Potassium Level 3.8 MMOL/L (3.5-5.1) Chloride Level 102 MMOL/L (98-107) Carbon Dioxide Level 25 MMOL/L (21-32) Anion Gap 7 mmol/L (5-15) Blood Urea Nitrogen 15 mg/dL (7-18) Creatinine 1.4 MG/DL (0.55-1.30) H Estimat Glomerular Filtration Rate > 60 mL/min (>60) Glucose Level 132 MG/DL (74-106) H Calcium Level 8.2 MG/DL (8.5-10.1) L Total Bilirubin 6.7 MG/DL (0.2-1.0) H Direct Bilirubin 5.6 MG/DL (0.0-0.3) H Aspartate Amino Transf (AST/SGOT) 81 U/L (15-37) H Alanine Aminotransferase (ALT/SGPT) 107 U/L (12-78) H Alkaline Phosphatase 831 U/L (46-116) H Ammonia 63 umol/L (11-32) H Total Protein 5.7 G/DL (6.4-8.2) L Albumin 2.2 G/DL (3.4-5.0) L Globulin 3.5 g/dL Albumin/Globulin Ratio 0.6 (1.0-2.7) L Phenytoin (Dilantin) Level 38.4 ug/mL (10-20) *H Current Medications Medications (Trade) Dose Ordered Sig/Obdulia Route PRN Reason Start Time Stop Time Status Last Admin Dose Admin Acetaminophen (Tylenol) 650 mg Q4H PRN ORAL fever 04/24/18 17:15 05/24/18 17:14 04/30/18 18:01 Al Hydroxide/Mg Hydroxide (Mylanta II) 30 ml Q6H PRN ORAL dyspepsia 04/24/18 17:15 05/24/18 17:14 Amlodipine Besylate (Norvasc) 10 mg DAILY ORAL 04/25/18 09:00 05/25/18 08:59 04/30/18 08:43 Cefepime HCl 1 gm/ Sodium Chloride 55 ml @ 110 mls/hr Q12H IVPB 04/29/18 17:00 05/03/18 16:59 05/01/18 04:43 Dextrose (Dextrose 50%) 25 ml Q30M PRN IV Hypoglycemia 04/24/18 17:15 05/24/18 17:14 Dextrose (Dextrose 50%) 50 ml Q30M PRN IV Hypoglycemia 04/24/18 17:15 05/24/18 17:14 Dextrose/ Electrolytes 1,000 ml @ 100 mls/hr Q10H IV 04/30/18 15:30 05/29/18 15:29 05/01/18 01:11 Diphenhydramine HCl (Benadryl) 25 mg Q6H PRN IVP Itching 04/26/18 16:30 05/26/18 16:29 04/28/18 05:32 Folic Acid (Folate) 1 mg DAILY ORAL 04/25/18 12:00 05/25/18 11:59 04/30/18 08:43 Gabapentin (Neurontin) 300 mg THREE TIMES A DAY ORAL 04/25/18 18:00 05/25/18 17:59 04/30/18 18:01 Heparin Sodium (Porcine) (Heparin 5000 units/ml) 5,000 units EVERY 12 HOURS SUBQ 04/24/18 21:00 05/24/18 20:59 04/30/18 21:14 Hydralazine HCl (Apresoline) 25 mg EVERY 8 HOURS ORAL 04/24/18 22:00 05/24/18 21:59 04/30/18 13:48 Lactulose (Cephulac) 10 gm THREE TIMES A DAY ORAL 04/29/18 13:30 05/29/18 13:29 04/30/18 18:01 Levetiracetam (Keppra) 500 mg EVERY 12 HOURS ORAL 04/24/18 21:00 05/24/18 20:59 04/30/18 21:13 Lorazepam (Ativan 2mg/ml 1ml) 1 mg Q6H PRN IVP For Anxiety 04/27/18 04:15 05/04/18 04:14 05/01/18 05:35 Ondansetron HCl (Zofran) 4 mg Q6H PRN IVP Nausea & Vomiting 04/24/18 17:15 05/24/18 17:14 04/26/18 09:00 Oxycodone/ Acetaminophen (Percocet 5-325) 1 tab Q4H PRN ORAL severe pain 04/27/18 15:30 05/04/18 15:29 04/28/18 05:29 Polyethylene Glycol (Miralax) 17 gm HSPRN PRN ORAL Constipation 04/24/18 17:15 05/24/18 17:14 Rifaximin (Xifaxan) 550 mg EVERY 12 HOURS ORAL 04/30/18 21:00 05/07/18 20:59 04/30/18 21:13 Vancomycin HCl (Vanco rx to dose) 1 ea DAILY PRN MISC Per rx protocol 04/26/18 13:45 05/26/18 13:44 Vancomycin HCl 1 gm/Sodium Chloride 275 ml @ 183.708 mls/hr Q8H IVPB 04/30/18 22:00 05/05/18 21:59 05/01/18 05:12 Zolpidem Tartrate (Ambien) 5 mg HSPRN PRN ORAL Insomnia 04/24/18 17:15 05/01/18 17:14 Kelsie Ibarra M.D. May 01, 2018 12:50
--- NOTE | 2018-05-01 13:16 | General Progress Note ---
Assessment/Plan Problem List: (1) Head ache ICD Codes: R51 - Headache SNOMED: 20716902 (2) Weak ICD Codes: R53.1 - Weakness SNOMED: 66532741 (3) HTN (hypertension) ICD Codes: I10 - Essential (primary) hypertension SNOMED: 79850040 (4) Malnutrition ICD Codes: E46 - Unspecified protein-calorie malnutrition SNOMED: 39818798 (5) Epilepsy ICD Codes: G40.909 - Epilepsy, unspecified, not intractable, without status epilepticus SNOMED: 92042139 (6) Intractable pain ICD Codes: R52 - Pain, unspecified SNOMED: 72606888 Status: unchanged Assessment/Plan pt diet pain control neuro psyc eval abx prn cbc bmp am dc plan if clear Subjective Constitutional: Reports: weakness Allergies: Coded Allergies: GADOBUTROL (Verified Allergy, Intermediate, 04/30/18) Uncoded Allergies: CONTRAST (Allergy, Mild, Rash, 04/26/18) All Systems: reviewed and negative except above Subjective sleepy c/o some head ache Objective Last 24 Hour Vital Signs Date Time Temp Pulse Resp B/P (MAP) Pulse Ox O2 Delivery O2 Flow Rate FiO2 05/01/18 12:00 98.8 101 20 106/69 (81) 100 05/01/18 09:00 Room Air 05/01/18 08:04 97.5 101 20 120/63 (82) 95 05/01/18 05:09 113/58 05/01/18 04:00 99.9 106 20 113/58 (76) 99 05/01/18 00:00 99.6 104 21 107/59 (75) 94 04/30/18 21:09 111/71 04/30/18 21:00 Room Air 04/30/18 19:58 100.1 109 22 111/71 (84) 95 04/30/18 18:31 101.0 04/30/18 15:47 101.4 110 22 119/69 (86) 96 04/30/18 13:48 118/77 Intake and Output 04/30/18 05/01/18 18:59 06:59 Intake Total 400 ml 965.000 ml Output Total 600 ml Balance 400 ml 365.000 ml Intake Oral 60 ml IV Total 905.000 ml Other 400 ml Output Urine Total 600 ml Laboratory Tests 04/30/18 20:44: Vancomycin Level Trough 21.5H 05/01/18 06:05: White Blood Count 11.2H, Red Blood Count 3.67L, Hemoglobin 12.1L, Hematocrit 35.6L, Mean Corpuscular Volume 97, Mean Corpuscular Hemoglobin 32.9H, Mean Corpuscular Hemoglobin Concent 33.9, Red Cell Distribution Width 12.1, Platelet Count 269, Mean Platelet Volume 5.9L, Neutrophils (%) (Auto) , Lymphocytes (%) ( Auto) , Monocytes (%) (Auto) , Eosinophils (%) (Auto) , Basophils (%) (Auto) , Differential Total Cells Counted 100, Neutrophils % (Manual) 65, Lymphocytes % ( Manual) 12L, Monocytes % (Manual) 7, Eosinophils % (Manual) 16H, Basophils % ( Manual) 0, Band Neutrophils 0, Platelet Estimate Adequate, Platelet Morphology Normal, Red Blood Cell Morphology Normal, Sodium Level 134L, Potassium Level 3.8 , Chloride Level 102, Carbon Dioxide Level 25, Anion Gap 7, Blood Urea Nitrogen 15, Creatinine 1.4H, Estimat Glomerular Filtration Rate > 60, Glucose Level 132H , Calcium Level 8.2L, Total Bilirubin 6.7H, Direct Bilirubin 5.6H, Aspartate Amino Transf (AST/SGOT) 81H, Alanine Aminotransferase (ALT/SGPT) 107H, Alkaline Phosphatase 831H, Ammonia 63H, Total Protein 5.7L, Albumin 2.2L, Globulin 3.5, Albumin/Globulin Ratio 0.6L, Phenytoin (Dilantin) Level 38.4*H Height (Feet): 5 Height (Inches): 11.00 Weight (Pounds): 145 General Appearance: lethargic EENT: normal ENT inspection Neck: normal alignment Cardiovascular: normal peripheral pulses, normal rate, regular rhythm Respiratory/Chest: chest wall non-tender, lungs clear, normal breath sounds Abdomen: normal bowel sounds, non tender, soft Extremities: normal inspection Edema: no edema noted Arm (L), no edema noted Arm (R), no edema noted Leg (L), no edema noted Leg (R), no edema noted Pedal (L), no edema noted Pedal (R), no edema noted Generalized Neurologic: motor weakness Skin: normal pigmentation, warm/dry Neri Cat DO May 01, 2018 13:16
--- NOTE | 2018-05-01 13:36 | Nephrology Progress Note ---
Assessment/Plan Assessment 1. Hypovolemic hyponatremia based on the urine which was concentrated, although the patient may have hyponatremia as a result of antiseizure medication versus SIADH. 2. Hypokalemia. 3. History of brain tumor, status post craniotomy. 4. History of seizure. Plan increase ivf monitoring renal function avoid NSAID Mix all ivpb with NS.9 Subjective Subjective alert and awake very low intake Objective Objective Last 24 Hour Vital Signs Date Time Temp Pulse Resp B/P (MAP) Pulse Ox O2 Delivery O2 Flow Rate FiO2 05/01/18 12:00 98.8 101 20 106/69 (81) 100 05/01/18 09:00 Room Air 05/01/18 08:04 97.5 101 20 120/63 (82) 95 05/01/18 05:09 113/58 05/01/18 04:00 99.9 106 20 113/58 (76) 99 05/01/18 00:00 99.6 104 21 107/59 (75) 94 04/30/18 21:09 111/71 04/30/18 21:00 Room Air 04/30/18 19:58 100.1 109 22 111/71 (84) 95 04/30/18 18:31 101.0 04/30/18 15:47 101.4 110 22 119/69 (86) 96 04/30/18 13:48 118/77 Intake and Output 04/30/18 05/01/18 18:59 06:59 Intake Total 400 ml 965.000 ml Output Total 600 ml Balance 400 ml 365.000 ml Intake Oral 60 ml IV Total 905.000 ml Other 400 ml Output Urine Total 600 ml Laboratory Tests 04/30/18 20:44: Vancomycin Level Trough 21.5H 05/01/18 06:05: White Blood Count 11.2H, Red Blood Count 3.67L, Hemoglobin 12.1L, Hematocrit 35.6L, Mean Corpuscular Volume 97, Mean Corpuscular Hemoglobin 32.9H, Mean Corpuscular Hemoglobin Concent 33.9, Red Cell Distribution Width 12.1, Platelet Count 269, Mean Platelet Volume 5.9L, Neutrophils (%) (Auto) , Lymphocytes (%) ( Auto) , Monocytes (%) (Auto) , Eosinophils (%) (Auto) , Basophils (%) (Auto) , Differential Total Cells Counted 100, Neutrophils % (Manual) 65, Lymphocytes % ( Manual) 12L, Monocytes % (Manual) 7, Eosinophils % (Manual) 16H, Basophils % ( Manual) 0, Band Neutrophils 0, Platelet Estimate Adequate, Platelet Morphology Normal, Red Blood Cell Morphology Normal, Sodium Level 134L, Potassium Level 3.8 , Chloride Level 102, Carbon Dioxide Level 25, Anion Gap 7, Blood Urea Nitrogen 15, Creatinine 1.4H, Estimat Glomerular Filtration Rate > 60, Glucose Level 132H , Calcium Level 8.2L, Total Bilirubin 6.7H, Direct Bilirubin 5.6H, Aspartate Amino Transf (AST/SGOT) 81H, Alanine Aminotransferase (ALT/SGPT) 107H, Alkaline Phosphatase 831H, Ammonia 63H, Total Protein 5.7L, Albumin 2.2L, Globulin 3.5, Albumin/Globulin Ratio 0.6L, Phenytoin (Dilantin) Level 38.4*H Height (Feet): 5 Height (Inches): 11.00 Weight (Pounds): 145 Objective HEAD AND NECK: He has scar from the craniotomy. No LAD. Extraocular movement intact. Pupils are reactive to light and accommodation. LUNGS: Clear to auscultation. CARDIAC: Regular rate and rhythm. S1 and S2. No murmur. No rub. ABDOMEN: Soft, nontender, and nondistended. EXTREMITIES: No edema. No clubbing. No cyanosis. Marielena Romero MD May 01, 2018 13:36
--- NOTE | 2018-05-01 14:23 | NUR ---
[employer] SI:DEHYDRATION. INTRACTABLE PAIN. VS: BP 107/59, P 106, T 99.9, RR 20, SpO2 100 on Room Air WBC 11.2, RBC 3.67, Hgb 12.1, Hct 35.6, CR 1.4, Ca 8.2, Alk. Phos. 831, Ammonia 63, Total Bilirubin 6.7, Phenytoin 38.4, pO2 73.5, ABG O2 sat 94.8 Abdominal MRI: Impression: No definite gallstones. However, there is gallbladder wall edema and pericholecystic fluid. Could indicate acalculous acute cholecystitis or cholecystitis due to an occult calculus. Alternatively, this could represent reactive changes secondary to adjacent hepatocellular inflammation. IS:Lactulose TID Vancomycin IVPB Rifaximin Oxycodone Gabapentin Amlodipine Keppra Zofran Dextrose 100 mls/hr MED/SURG STATUS
--- NOTE | 2018-05-01 14:27 | Pulmonology Progress Note ---
Assessment/Plan Problems: (1) Drug-induced hepatic toxicity (2) Phenytoin toxicity (3) Sepsis (4) History of craniotomy (5) Intractable pain (6) Head ache (7) Brain tumor (8) Transaminitis Assessment/Plan iv fluids dc ativen symptomatic treatment neuro evaluation pain management Subjective ROS Limited/Unobtainable: Yes Allergies: Coded Allergies: GADOBUTROL (Verified Allergy, Intermediate, 04/30/18) Uncoded Allergies: CONTRAST (Allergy, Mild, Rash, 04/26/18) Objective Last 24 Hour Vital Signs Date Time Temp Pulse Resp B/P (MAP) Pulse Ox O2 Delivery O2 Flow Rate FiO2 05/01/18 12:00 98.8 101 20 106/69 (81) 100 05/01/18 09:00 Room Air 05/01/18 08:04 97.5 101 20 120/63 (82) 95 05/01/18 05:09 113/58 05/01/18 04:00 99.9 106 20 113/58 (76) 99 05/01/18 00:00 99.6 104 21 107/59 (75) 94 04/30/18 21:09 111/71 04/30/18 21:00 Room Air 04/30/18 19:58 100.1 109 22 111/71 (84) 95 04/30/18 18:31 101.0 04/30/18 15:47 101.4 110 22 119/69 (86) 96 Intake and Output 04/30/18 05/01/18 18:59 06:59 Intake Total 400 ml 965.000 ml Output Total 600 ml Balance 400 ml 365.000 ml Intake Oral 60 ml IV Total 905.000 ml Other 400 ml Output Urine Total 600 ml Objective General Appearance: WD/WN HEENT: normocephalic Respiratory/Chest: chest wall non-tender, lungs clear, normal breath sounds Breasts: no masses Cardiovascular: normal peripheral pulses, normal rate Abdomen: normal bowel sounds, soft, non tender Extremities: no cyanosis Skin: no rash Microbiology Date/Time Source Procedure Growth Status 04/28/18 17:55 Blood Blood Culture - Preliminary NO GROWTH AFTER 48 HOURS Resulted 04/28/18 17:50 Blood Blood Culture - Preliminary NO GROWTH AFTER 48 HOURS Resulted 04/28/18 21:50 Urine,Clean Catch Urine Culture - Final NO GROWTH AFTER 48 HOURS Complete Laboratory Tests 04/30/18 20:44: Vancomycin Level Trough 21.5H 05/01/18 06:05: White Blood Count 11.2H, Red Blood Count 3.67L, Hemoglobin 12.1L, Hematocrit 35.6L, Mean Corpuscular Volume 97, Mean Corpuscular Hemoglobin 32.9H, Mean Corpuscular Hemoglobin Concent 33.9, Red Cell Distribution Width 12.1, Platelet Count 269, Mean Platelet Volume 5.9L, Neutrophils (%) (Auto) , Lymphocytes (%) ( Auto) , Monocytes (%) (Auto) , Eosinophils (%) (Auto) , Basophils (%) (Auto) , Differential Total Cells Counted 100, Neutrophils % (Manual) 65, Lymphocytes % ( Manual) 12L, Monocytes % (Manual) 7, Eosinophils % (Manual) 16H, Basophils % ( Manual) 0, Band Neutrophils 0, Platelet Estimate Adequate, Platelet Morphology Normal, Red Blood Cell Morphology Normal, Sodium Level 134L, Potassium Level 3.8 , Chloride Level 102, Carbon Dioxide Level 25, Anion Gap 7, Blood Urea Nitrogen 15, Creatinine 1.4H, Estimat Glomerular Filtration Rate > 60, Glucose Level 132H , Calcium Level 8.2L, Total Bilirubin 6.7H, Direct Bilirubin 5.6H, Aspartate Amino Transf (AST/SGOT) 81H, Alanine Aminotransferase (ALT/SGPT) 107H, Alkaline Phosphatase 831H, Ammonia 63H, Total Protein 5.7L, Albumin 2.2L, Globulin 3.5, Albumin/Globulin Ratio 0.6L, Phenytoin (Dilantin) Level 38.4*H Current Medications Medications (Trade) Dose Ordered Sig/Obdulia Route PRN Reason Start Time Stop Time Status Last Admin Dose Admin Acetaminophen (Tylenol) 650 mg Q4H PRN ORAL fever 04/24/18 17:15 05/24/18 17:14 04/30/18 18:01 Al Hydroxide/Mg Hydroxide (Mylanta II) 30 ml Q6H PRN ORAL dyspepsia 04/24/18 17:15 05/24/18 17:14 Amlodipine Besylate (Norvasc) 10 mg DAILY ORAL 04/25/18 09:00 05/25/18 08:59 04/30/18 08:43 Dextrose (Dextrose 50%) 25 ml Q30M PRN IV Hypoglycemia 04/24/18 17:15 05/24/18 17:14 Dextrose (Dextrose 50%) 50 ml Q30M PRN IV Hypoglycemia 04/24/18 17:15 05/24/18 17:14 Dextrose/ Electrolytes 1,000 ml @ 100 mls/hr Q10H IV 04/30/18 15:30 05/29/18 15:29 05/01/18 01:11 Diphenhydramine HCl (Benadryl) 25 mg Q6H PRN IVP Itching 04/26/18 16:30 05/26/18 16:29 04/28/18 05:32 Folic Acid (Folate) 1 mg DAILY ORAL 04/25/18 12:00 05/25/18 11:59 04/30/18 08:43 Gabapentin (Neurontin) 300 mg THREE TIMES A DAY ORAL 04/25/18 18:00 05/25/18 17:59 04/30/18 18:01 Heparin Sodium (Porcine) (Heparin 5000 units/ml) 5,000 units EVERY 12 HOURS SUBQ 04/24/18 21:00 05/24/18 20:59 04/30/18 21:14 Hydralazine HCl (Apresoline) 25 mg EVERY 8 HOURS ORAL 04/24/18 22:00 05/24/18 21:59 04/30/18 13:48 Lactulose (Cephulac) 10 gm THREE TIMES A DAY ORAL 04/29/18 13:30 05/29/18 13:29 04/30/18 18:01 Levetiracetam (Keppra) 500 mg EVERY 12 HOURS ORAL 04/24/18 21:00 05/24/18 20:59 04/30/18 21:13 Lorazepam (Ativan 2mg/ml 1ml) 1 mg Q6H PRN IVP For Anxiety 04/27/18 04:15 05/04/18 04:14 05/01/18 05:35 Meropenem 1 gm/ Sodium Chloride 55 ml @ 110 mls/hr Q8HR IVPB 05/01/18 14:00 05/06/18 13:59 Ondansetron HCl (Zofran) 4 mg Q6H PRN IVP Nausea & Vomiting 04/24/18 17:15 05/24/18 17:14 04/26/18 09:00 Oxycodone/ Acetaminophen (Percocet 5-325) 1 tab Q4H PRN ORAL severe pain 04/27/18 15:30 05/04/18 15:29 04/28/18 05:29 Polyethylene Glycol (Miralax) 17 gm HSPRN PRN ORAL Constipation 04/24/18 17:15 05/24/18 17:14 Rifaximin (Xifaxan) 550 mg EVERY 12 HOURS ORAL 04/30/18 21:00 05/07/18 20:59 04/30/18 21:13 Vancomycin HCl (Vanco rx to dose) 1 ea DAILY PRN MISC Per rx protocol 04/26/18 13:45 05/26/18 13:44 Vancomycin HCl 1 gm/Sodium Chloride 275 ml @ 183.708 mls/hr Q8H IVPB 04/30/18 22:00 05/05/18 21:59 05/01/18 05:12 Zolpidem Tartrate (Ambien) 5 mg HSPRN PRN ORAL Insomnia 04/24/18 17:15 05/01/18 17:14 Millicent Armas MD May 01, 2018 14:27
[2018-05-01] MEDS: Meropenem 1 GM in NS 55 ML IVPB SCH ×2 (14:51→22:12)
--- NOTE | 2018-05-01 19:15 | NUR ---
NURSE NOTES: Received patient in bed, asleep with pillow and blankets over head. Sitter at bedside. IV site intact and patent. Bed in low and locked position, call light in reach. No signs of respiratory distress or pain at this time. Asked patient to remove the blanket from his head. he rolled over and removed it momentarily but put the pillow back on. Room board updated, will continue to monitor.
--- NOTE | 2018-05-01 19:37 | NUR ---
HAND-OFF: Report given to BELEN Oneil.
[2018-05-02] MEDS: oxyCODONE HCL/Acetaminophen 5/325mg ORAL PRN ×3 (01:37→21:55)
[2018-05-02 04:35] VITALS: BP 130/72
[2018-05-02] MEDS: Meropenem 1 GM in NS 55 ML IVPB SCH ×2 (05:40→13:52)
[2018-05-02] MEDS: HydrALAZINE 25mg tab ORAL SCH ×3 (05:40→21:53)
[2018-05-02 07:05] LABS: HEMATOCRIT 34.6 % (42.0-52.0); HEMOGLOBIN 11.7 G/DL (14.2-18.0); MEAN CORPUSCULAR VOLUME 98 FL (80-99); PLATELET COUNT 295 K/UL (150-450); RED BLOOD COUNT 3.52 M/UL (4.70-6.10); RED CELL DISTRIBUTION WIDTH 12.3 % (11.6-14.8); WHITE BLOOD COUNT 9.7 K/UL (4.8-10.8)
[2018-05-02 07:17] LABS: AMYLASE 43 U/L (25-115)
[2018-05-02 07:18] LABS: ALANINE AMINOTRANSFERASE 96 U/L (12-78); ALBUMIN 2.2 G/DL (3.4-5.0); ALBUMIN/GLOBULIN RATIO 0.6 (1.0-2.7); ALKALINE PHOSPHATASE 963 U/L (46-116); ANION GAP 8 mmol/L (5-15); ASPARTATE AMINO TRANSFERASE 77 U/L (15-37); BILIRUBIN,TOTAL 7.7 MG/DL (0.2-1.0); BLOOD UREA NITROGEN 16 mg/dL (7-18); CALCIUM 8.3 MG/DL (8.5-10.1); CARBON DIOXIDE 24 MMOL/L (21-32); CHLORIDE 103 MMOL/L (98-107); CREATININE 1.4 MG/DL (0.55-1.30); POTASSIUM 3.9 MMOL/L (3.5-5.1); SODIUM 135 MMOL/L (136-145)
[2018-05-02 07:19] LABS: BILIRUBIN,DIRECT 6.3 MG/DL (0.0-0.3)
--- NOTE | 2018-05-02 07:25 | NUR ---
NURSE NOTES: Received call from Lab critical value of dilantin. Left message to Dr. Parada. Will endorse to next shift.
--- NOTE | 2018-05-02 07:30 | NUR ---
NURSE NOTES: Patient is in bed asleep but arousable to verbal stimuli. Patient is stable with no s/s acute distress. Patient denies pain at this time. No facial grimacing or labored breathing noted. patient was encouraged to use call light for assistance, all safety precautions provided. Seizure precautions in place. Patient is comfortable in bed in lowest and locked position with bed alarm on and call light within reach. Will continue to monitor.
--- NOTE | 2018-05-02 07:43 | NUR ---
HAND-OFF: Report given to Areli GLOVER.
[2018-05-02] MEDS ORDERED: Morphine Sulfate 2mg/ml Inj(IV/IM USE ONLY) IVP SCH (08:00)
--- NOTE | 2018-05-02 08:00 | NUR ---
NURSE NOTES: Patient seen by MD who was made aware of elevated Phenytoin lab values, Patient was taken for HIDA scan via hospital bed.
[2018-05-02] MEDS ORDERED: Vancomycin 1.5gm Premix q24h IVPB SCH (09:00)
--- NOTE | 2018-05-02 09:30 | NUR ---
REHAB MED PT NOTE AWAY FOR TEST, WILL REATTEMPT ABLE
--- NOTE | 2018-05-02 10:00 | NUR ---
NURSE NOTES: Patient returned to unit from [facility]. Patient is stable and complains of 6/10 pain. Will administer medication as ordered. Patient remains in bed with call light within reach. Sitter at bedside. All safety measures provided. Will continue to monitor.
--- NOTE | 2018-05-02 10:22 | NUR ---
HIDA Scan complete.
[2018-05-02] MEDS: Lactulose 10gm/15ml UDC ORAL SCH ×3 (10:32→18:37)
[2018-05-02] MEDS: Heparin 5000 units/ml inj SUBQ SCH ×2 (10:34→21:55)
[2018-05-02] MEDS: Vancomycin 1.5 GM in D5W 275 ML IVPB SCH ×2 (10:34→21:57)
--- NOTE | 2018-05-02 10:35 | Diagnostic Imaging Report ---
Indications: Abdominal pain, abnormal liver function tests Technique: IV administration 5.5 mCi 99 M technetium Choletec. Serial images obtained over the abdomen for one hour 40 minutes. Patient unable to tolerate further scanning Comparison: None Findings: Poor tracer uptake within the liver. After one hour 40 minutes, no biliary excretion is demonstrated. Gallbladder is not visualized Impression: Poor hepatic tracer uptake, no biliary excretion. Findings most likely represents severe hepatocellular disease. Findings are nondiagnostic as regards cystic duct or common bile duct patency
--- NOTE | 2018-05-02 11:38 | Infectious Diseases Prog Note ---
Assessment/Plan Assessment/Plan Assessment: Sepsis; improving- likely due to probable acute acalculous cholecystitis Fever , improving ?PNA -CXR: Mildly increased interstitial markings. This is nonspecific and cannot exclude a mild bronchitis or interstitial pneumonitis. No focal consolidation. -wound cx craniotomy incision: MSSA (wound doesnt appaer infected) -bcx NTD -influenza sc neg Mild leukocytosis,SP Elevated LFTs, improving (probably due to both cholecystitis and toxic phenytoin levels) Elev alk and Leno )ALP >> AST, ALT)- Probasble Acute acalculous cholecystitis -HIDA scan: Poor hepatic tracer uptake, no biliary excretion. Findings most likely represents severe hepatocellular disease. Findings are nondiagnostic as regards cystic duct or common bile duct patency -MRCP:No definite gallstones. However, there is gallbladder wall edema and pericholecystic fluid. Could indicate acalculous acute cholecystitis or cholecystitis due to an occult calculus. Alternatively, this could represent reactive changes secondary to adjacent hepatocellular inflammation. Consider hepatobiliary nuclear scan if there is high clinical suspicion for acute cholecystitis. Negative for biliary ductal dilatation. Periportal edema. This can be seen acute hepatitis or right heart failure, among other possibilities -Abd US: No acute findings. -Acute hep panel neg Headache- MRI shows post-surgical findings, no obvious abscess- r/o nosocomial meningitis -04/26 MRI Brain w/wo: Evidence of recent resection of a mass centered about the inferior aspect of the anterior interhemispheric fissure, a typical location for meningioma. Please correlate with the surgical history. Some enhancement of the dura along the anterior interhemispheric fissure and within the surgical bed is not unexpected given the recent surgery. However, the possibility of residual neoplasm is not excludable. There are no reference studies to compare to the preoperative MRI available. Other notable postsurgical finding includes a small fluid collection within the surgical bed deep to the bifrontal craniotomy flap and mild edema within the frontal lobes -CT brain wo: Postsurgical changes associated with relatively recent bifrontal craniotomy likely resection of a mass in the area of the interhemispheric fissure. 6 mm thick mixed attenuation extra-axial blood noted within the surgical bed. Please correlate with the operative report and comparison with prior studies is strongly recommended. -ESR 42, CRP 16.2 -HIV ag/ab neg MICHELLE (supratherapuetic vanco levels) Recent Brain tumor removal (1 month ago) seizure disorder GERD Tobacco use Drug rash-?culprit (present before antibiotics) Plan: -D/c empiric IV Vancomycin #7 -Continue Meropenem #2 (abx d#7) given ongoing fevers and leukocytosis and for probable acute acalculous cholecystitis -3/ SP Cefepime #6 -Will hold on LP for now as an alternative source of sepsis is considered -f/u cx -Monitor CBC/CMP, temperatures -management of drug rash per primary -GI, Sx, Nuero fu Discussed with RN, Dr Parada, and Dr Donnelly Subjective Allergies: Coded Allergies: GADOBUTROL (Verified Allergy, Intermediate, 04/30/18) Uncoded Allergies: CONTRAST (Allergy, Mild, Rash, 04/26/18) Subjective afebrile in 36hrs mild leukocytosis resolved Bcx NTD Objective Vital Signs Last 24 Hour Vital Signs Date Time Temp Pulse Resp B/P (MAP) Pulse Ox O2 Delivery O2 Flow Rate FiO2 05/02/18 10:31 107 127/87 05/02/18 10:00 Room Air 05/02/18 05:40 130/72 05/02/18 04:35 98.6 99 24 130/72 (91) 100 05/01/18 23:55 99.5 103 24 119/79 (92) 99 05/01/18 22:13 118/69 05/01/18 21:00 Room Air 05/01/18 20:00 97.8 101 24 118/69 (85) 100 05/01/18 16:01 97.8 99 20 114/72 (86) 97 05/01/18 12:00 98.8 101 20 106/69 (81) 100 Height (Feet): 5 Height (Inches): 11.00 Weight (Pounds): 145 Objective HEAD: craniotomy scar with some superficial ulceration on R left side- no signs of infection GENERAL: Anxious in bed, oriented x2, in no acute distress. CARDIOVASCULAR: No murmur. LUNGS: Distant and clear. ABDOMEN: Bowel sounds positive. Nontender. Nondistended. EXTREMITIES: No cyanosis, clubbing, or edema. NEUROLOGIC: The patient moves all extremities. Slight weakness in extremities. Skin: maculopapular rash in torso, arms Laboratory Tests Test 05/01/18 20:45 05/02/18 05:35 Vancomycin Level Trough 25.8 ug/mL (5.0-12.0) H White Blood Count 9.7 K/UL (4.8-10.8) Red Blood Count 3.52 M/UL (4.70-6.10) L Hemoglobin 11.7 G/DL (14.2-18.0) L Hematocrit 34.6 % (42.0-52.0) L Mean Corpuscular Volume 98 FL (80-99) Mean Corpuscular Hemoglobin 33.1 PG (27.0-31.0) H Mean Corpuscular Hemoglobin Concent 33.7 G/DL (32.0-36.0) Red Cell Distribution Width 12.3 % (11.6-14.8) Platelet Count 295 K/UL (150-450) Mean Platelet Volume 6.3 FL (6.5-10.1) L Neutrophils (%) (Auto) % (45.0-75.0) Lymphocytes (%) (Auto) % (20.0-45.0) Monocytes (%) (Auto) % (1.0-10.0) Eosinophils (%) (Auto) % (0.0-3.0) Basophils (%) (Auto) % (0.0-2.0) Differential Total Cells Counted 100 Neutrophils % (Manual) 57 % (45-75) Lymphocytes % (Manual) 8 % (20-45) L Monocytes % (Manual) 5 % (1-10) Eosinophils % (Manual) 30 % (0-3) H Basophils % (Manual) 0 % (0-2) Band Neutrophils 0 % (0-8) Platelet Estimate Adequate Platelet Morphology Normal Red Blood Cell Morphology Normal Sodium Level 135 MMOL/L (136-145) L Potassium Level 3.9 MMOL/L (3.5-5.1) Chloride Level 103 MMOL/L (98-107) Carbon Dioxide Level 24 MMOL/L (21-32) Anion Gap 8 mmol/L (5-15) Blood Urea Nitrogen 16 mg/dL (7-18) Creatinine 1.4 MG/DL (0.55-1.30) H Estimat Glomerular Filtration Rate > 60 mL/min (>60) Glucose Level 124 MG/DL (74-106) H Calcium Level 8.3 MG/DL (8.5-10.1) L Total Bilirubin 7.7 MG/DL (0.2-1.0) H Direct Bilirubin 6.3 MG/DL (0.0-0.3) H Aspartate Amino Transf (AST/SGOT) 77 U/L (15-37) H Alanine Aminotransferase (ALT/SGPT) 96 U/L (12-78) H Alkaline Phosphatase 963 U/L (46-116) H Total Protein 5.6 G/DL (6.4-8.2) L Albumin 2.2 G/DL (3.4-5.0) L Globulin 3.4 g/dL Albumin/Globulin Ratio 0.6 (1.0-2.7) L Amylase Level 43 U/L (25-115) Lipase 261 U/L (73-393) Phenytoin (Dilantin) Level 44.1 ug/mL (10-20) *H Current Medications Medications (Trade) Dose Ordered Sig/Obdulia Route PRN Reason Start Time Stop Time Status Last Admin Dose Admin Acetaminophen (Tylenol) 650 mg Q4H PRN ORAL fever 04/24/18 17:15 05/24/18 17:14 04/30/18 18:01 Al Hydroxide/Mg Hydroxide (Mylanta II) 30 ml Q6H PRN ORAL dyspepsia 04/24/18 17:15 05/24/18 17:14 Amlodipine Besylate (Norvasc) 10 mg DAILY ORAL 04/25/18 09:00 05/25/18 08:59 05/02/18 10:31 Dextrose (Dextrose 50%) 25 ml Q30M PRN IV Hypoglycemia 04/24/18 17:15 05/24/18 17:14 Dextrose (Dextrose 50%) 50 ml Q30M PRN IV Hypoglycemia 04/24/18 17:15 05/24/18 17:14 Dextrose/ Electrolytes 1,000 ml @ 100 mls/hr Q10H IV 04/30/18 15:30 05/29/18 15:29 05/02/18 10:26 Diphenhydramine HCl (Benadryl) 25 mg Q6H PRN IVP Itching 04/26/18 16:30 05/26/18 16:29 04/28/18 05:32 Folic Acid (Folate) 1 mg DAILY ORAL 04/25/18 12:00 05/25/18 11:59 05/02/18 10:31 Gabapentin (Neurontin) 300 mg THREE TIMES A DAY ORAL 04/25/18 18:00 05/25/18 17:59 05/02/18 10:31 Heparin Sodium (Porcine) (Heparin 5000 units/ml) 5,000 units EVERY 12 HOURS SUBQ 04/24/18 21:00 05/24/18 20:59 05/02/18 10:34 Hydralazine HCl (Apresoline) 25 mg EVERY 8 HOURS ORAL 04/24/18 22:00 05/24/18 21:59 05/02/18 05:40 Lactulose (Cephulac) 10 gm THREE TIMES A DAY ORAL 04/29/18 13:30 05/29/18 13:29 05/02/18 10:32 Levetiracetam (Keppra) 500 mg EVERY 12 HOURS ORAL 04/24/18 21:00 05/24/18 20:59 05/02/18 10:31 Lorazepam (Ativan 2mg/ml 1ml) 1 mg Q6H PRN IVP For Anxiety 04/27/18 04:15 05/04/18 04:14 05/01/18 05:35 Meropenem 1 gm/ Sodium Chloride 55 ml @ 110 mls/hr Q8HR IVPB 05/01/18 14:00 05/06/18 13:59 05/02/18 05:40 Ondansetron HCl (Zofran) 4 mg Q6H PRN IVP Nausea & Vomiting 04/24/18 17:15 05/24/18 17:14 04/26/18 09:00 Oxycodone/ Acetaminophen (Percocet 5-325) 1 tab Q4H PRN ORAL severe pain 04/27/18 15:30 05/04/18 15:29 05/02/18 10:27 Polyethylene Glycol (Miralax) 17 gm HSPRN PRN ORAL Constipation 04/24/18 17:15 05/24/18 17:14 Rifaximin (Xifaxan) 550 mg EVERY 12 HOURS ORAL 04/30/18 21:00 05/07/18 20:59 05/02/18 10:31 Vancomycin HCl (Vanco rx to dose) 1 ea DAILY PRN MISC Per rx protocol 04/26/18 13:45 05/26/18 13:44 Vancomycin HCl 1.5 gm/Dextrose 275 ml @ 137.5 mls/ hr Q12H IVPB 05/02/18 09:00 05/07/18 08:59 05/02/18 10:34 Kelsie Ibarra M.D. May 02, 2018 11:38
[2018-05-02 12:00] VITALS: BP 122/67
--- NOTE | 2018-05-02 12:47 | GI Progress Note ---
Assessment/Plan Problems: (1) Weak ICD Codes: R53.1 - Weakness SNOMED: 65191680 (2) Malnutrition ICD Codes: E46 - Unspecified protein-calorie malnutrition SNOMED: 81133595 (3) Brain tumor ICD Codes: D49.6 - Neoplasm of unspecified behavior of brain SNOMED: 369593142 (4) Transaminitis ICD Codes: R74.0 - Nonspecific elevation of levels of transaminase and lactic acid dehydrogenase [LDH] SNOMED: 631495825, 483250107 (5) Anemia ICD Codes: D64.9 - Anemia, unspecified SNOMED: 938468392 (6) Intractable pain ICD Codes: R52 - Pain, unspecified SNOMED: 73896771 (7) Phenytoin toxicity ICD Codes: T42.0X1A - Poisoning by hydantoin derivatives, accidental ( unintentional), initial encounter SNOMED: 39769658 Status: unchanged Status Narrative Discussed with Dr. Kimball Assessment/Plan Head CT reviewed lipase normal abdominal US reviewed, negative follow Hepatitis panel, negative MRCP reviewed, negative for common bile duct dilation. Possible cholecystitis. AMA and SMA negative Phenytoin toxicity >> DC Dilantin OB stool r/o GI bleed monitor H&H, prn transfusions bowel regime ppi lactulose, add xifaxan repeat ammonia level in am Outpatient GI procedures The patient was seen and examined at bedside and all new and available data was reviewed in the patients chart. I agree with the above findings, impression and plan. (Patient seen earlier today. Signature stamp does not reflect patient encounter time.). - Barry Kimball MD Subjective Subjective REES Objective Last 24 Hour Vital Signs Date Time Temp Pulse Resp B/P (MAP) Pulse Ox O2 Delivery O2 Flow Rate FiO2 05/02/18 12:00 99.5 107 24 122/67 (85) 98 05/02/18 10:31 107 127/87 05/02/18 10:00 Room Air 05/02/18 05:40 130/72 05/02/18 04:35 98.6 99 24 130/72 (91) 100 05/01/18 23:55 99.5 103 24 119/79 (92) 99 05/01/18 22:13 118/69 05/01/18 21:00 Room Air 05/01/18 20:00 97.8 101 24 118/69 (85) 100 05/01/18 16:01 97.8 99 20 114/72 (86) 97 Intake and Output 05/01/18 05/02/18 18:59 06:59 Intake Total 550.000 ml 1170 ml Output Total 500 ml 600 ml Balance 50.000 ml 570 ml Intake Oral 220 ml 360 ml IV Total 330.000 ml 810 ml Output Urine Total 500 ml 600 ml # Voids 1 Laboratory Tests Test 05/01/18 20:45 05/02/18 05:35 Vancomycin Level Trough 25.8 ug/mL (5.0-12.0) H White Blood Count 9.7 K/UL (4.8-10.8) Red Blood Count 3.52 M/UL (4.70-6.10) L Hemoglobin 11.7 G/DL (14.2-18.0) L Hematocrit 34.6 % (42.0-52.0) L Mean Corpuscular Volume 98 FL (80-99) Mean Corpuscular Hemoglobin 33.1 PG (27.0-31.0) H Mean Corpuscular Hemoglobin Concent 33.7 G/DL (32.0-36.0) Red Cell Distribution Width 12.3 % (11.6-14.8) Platelet Count 295 K/UL (150-450) Mean Platelet Volume 6.3 FL (6.5-10.1) L Neutrophils (%) (Auto) % (45.0-75.0) Lymphocytes (%) (Auto) % (20.0-45.0) Monocytes (%) (Auto) % (1.0-10.0) Eosinophils (%) (Auto) % (0.0-3.0) Basophils (%) (Auto) % (0.0-2.0) Differential Total Cells Counted 100 Neutrophils % (Manual) 57 % (45-75) Lymphocytes % (Manual) 8 % (20-45) L Monocytes % (Manual) 5 % (1-10) Eosinophils % (Manual) 30 % (0-3) H Basophils % (Manual) 0 % (0-2) Band Neutrophils 0 % (0-8) Platelet Estimate Adequate Platelet Morphology Normal Red Blood Cell Morphology Normal Sodium Level 135 MMOL/L (136-145) L Potassium Level 3.9 MMOL/L (3.5-5.1) Chloride Level 103 MMOL/L (98-107) Carbon Dioxide Level 24 MMOL/L (21-32) Anion Gap 8 mmol/L (5-15) Blood Urea Nitrogen 16 mg/dL (7-18) Creatinine 1.4 MG/DL (0.55-1.30) H Estimat Glomerular Filtration Rate > 60 mL/min (>60) Glucose Level 124 MG/DL (74-106) H Calcium Level 8.3 MG/DL (8.5-10.1) L Total Bilirubin 7.7 MG/DL (0.2-1.0) H Direct Bilirubin 6.3 MG/DL (0.0-0.3) H Aspartate Amino Transf (AST/SGOT) 77 U/L (15-37) H Alanine Aminotransferase (ALT/SGPT) 96 U/L (12-78) H Alkaline Phosphatase 963 U/L (46-116) H Total Protein 5.6 G/DL (6.4-8.2) L Albumin 2.2 G/DL (3.4-5.0) L Globulin 3.4 g/dL Albumin/Globulin Ratio 0.6 (1.0-2.7) L Amylase Level 43 U/L (25-115) Lipase 261 U/L (73-393) Phenytoin (Dilantin) Level 44.1 ug/mL (10-20) *H Height (Feet): 5 Height (Inches): 11.00 Weight (Pounds): 145 General Appearance: WD/WN, no apparent distress, alert Cardiovascular: normal rate Respiratory/Chest: normal breath sounds, no respiratory distress Abdominal Exam: normal bowel sounds, non tender, soft Extremities: normal range of motion, non-tender Bhupendra Barriga NP May 02, 2018 12:47
--- NOTE | 2018-05-02 13:11 | Consultation ---
History of Present Illness General Date patient seen: May 02, 2018 Chief Complaint: Headache Reason for Consultation: abnormal LFT's / Cholecystitis Present Illness HPI This is a 56-year-old male with multiple medical comorbidities who is currently under medical care and management [facility] identified to have abdominal discomfort, leukocytosis, abnormal LFTs. Patient had a ultrasound upon admission which was otherwise normal but recent MRIs demonstrated distended thickened gallbladder with likely acalculous cholecystitis. Surgery called to evaluate. Patient seen, patient examined, chart reviewed. Allergies: Coded Allergies: GADOBUTROL (Verified Allergy, Intermediate, 04/30/18) Uncoded Allergies: CONTRAST (Allergy, Mild, Rash, 04/26/18) Medication History Scheduled Amlodipine Besylate* (Amlodipine Besylate*), 10 MG ORAL DAILY, (Reported) Famotidine (Pepcid Ac), 20 MG PO DAILY, (Reported) Hydralazine Hcl* (Hydralazine Hcl*), 25 MG ORAL EVERY 8 HOURS, (Reported) Levetiracetam (Keppra), 500 MG ORAL EVERY 12 HOURS, (Reported) Phenytoin Sodium Extended* (Dilantin*), 100 MG ORAL THREE TIMES A DAY, (Reported ) Scheduled PRN Diphenhydramine Hcl* (Benadryl*), 25 MG ORAL Q6H PRN for Itching, (Reported) Ondansetron (Zofran), 4 MG ORAL Q8H PRN for Nausea & Vomiting, (Reported) Oxycodone HCl (Oxycodone HCl), 5 MG ORAL Q6HR PRN for For Pain, (Reported) Miscellaneous Medications Nicotine (Nicotine Patch), 1 EACH TD, (Reported) Patient History Limited by: medical condition History Provided By: Medical Record, PMD Healthcare decision maker Resuscitation status Full Code Advanced Directive on File Past Medical/Surgical History Past Medical/Surgical History: (1) Anemia (2) Transaminitis (3) Elevated alkaline phosphatase level (4) Brain tumor (5) Epilepsy (6) Head ache (7) Malnutrition (8) Weak (9) HTN (hypertension) (10) Intractable pain (11) Sepsis (12) Phenytoin toxicity Review of Systems ROS Narrative cannot obtain from patient. Physical Exam General Appearance: no apparent distress Lines, tubes and drains: other HEENT: mucous membranes moist Neck: normal inspection Respiratory/Chest: no respiratory distress, no accessory muscle use Cardiovascular/Chest: regular rhythm Abdomen: soft, no organomegaly, no mass, guarding, tender Extremities: normal inspection Skin Exam: warm/dry Neurologic: alert Last 24 Hour Vital Signs Date Time Temp Pulse Resp B/P (MAP) Pulse Ox O2 Delivery O2 Flow Rate FiO2 05/02/18 12:00 99.5 107 24 122/67 (85) 98 05/02/18 10:31 107 127/87 05/02/18 10:00 Room Air 05/02/18 05:40 130/72 05/02/18 04:35 98.6 99 24 130/72 (91) 100 05/01/18 23:55 99.5 103 24 119/79 (92) 99 05/01/18 22:13 118/69 05/01/18 21:00 Room Air 05/01/18 20:00 97.8 101 24 118/69 (85) 100 05/01/18 16:01 97.8 99 20 114/72 (86) 97 Intake and Output 05/01/18 05/02/18 18:59 06:59 Intake Total 550.000 ml 1170 ml Output Total 500 ml 600 ml Balance 50.000 ml 570 ml Intake Oral 220 ml 360 ml IV Total 330.000 ml 810 ml Output Urine Total 500 ml 600 ml # Voids 1 Laboratory Tests Test 05/01/18 20:45 05/02/18 05:35 Vancomycin Level Trough 25.8 ug/mL (5.0-12.0) H White Blood Count 9.7 K/UL (4.8-10.8) Red Blood Count 3.52 M/UL (4.70-6.10) L Hemoglobin 11.7 G/DL (14.2-18.0) L Hematocrit 34.6 % (42.0-52.0) L Mean Corpuscular Volume 98 FL (80-99) Mean Corpuscular Hemoglobin 33.1 PG (27.0-31.0) H Mean Corpuscular Hemoglobin Concent 33.7 G/DL (32.0-36.0) Red Cell Distribution Width 12.3 % (11.6-14.8) Platelet Count 295 K/UL (150-450) Mean Platelet Volume 6.3 FL (6.5-10.1) L Neutrophils (%) (Auto) % (45.0-75.0) Lymphocytes (%) (Auto) % (20.0-45.0) Monocytes (%) (Auto) % (1.0-10.0) Eosinophils (%) (Auto) % (0.0-3.0) Basophils (%) (Auto) % (0.0-2.0) Differential Total Cells Counted 100 Neutrophils % (Manual) 57 % (45-75) Lymphocytes % (Manual) 8 % (20-45) L Monocytes % (Manual) 5 % (1-10) Eosinophils % (Manual) 30 % (0-3) H Basophils % (Manual) 0 % (0-2) Band Neutrophils 0 % (0-8) Platelet Estimate Adequate Platelet Morphology Normal Red Blood Cell Morphology Normal Sodium Level 135 MMOL/L (136-145) L Potassium Level 3.9 MMOL/L (3.5-5.1) Chloride Level 103 MMOL/L (98-107) Carbon Dioxide Level 24 MMOL/L (21-32) Anion Gap 8 mmol/L (5-15) Blood Urea Nitrogen 16 mg/dL (7-18) Creatinine 1.4 MG/DL (0.55-1.30) H Estimat Glomerular Filtration Rate > 60 mL/min (>60) Glucose Level 124 MG/DL (74-106) H Calcium Level 8.3 MG/DL (8.5-10.1) L Total Bilirubin 7.7 MG/DL (0.2-1.0) H Direct Bilirubin 6.3 MG/DL (0.0-0.3) H Aspartate Amino Transf (AST/SGOT) 77 U/L (15-37) H Alanine Aminotransferase (ALT/SGPT) 96 U/L (12-78) H Alkaline Phosphatase 963 U/L (46-116) H Total Protein 5.6 G/DL (6.4-8.2) L Albumin 2.2 G/DL (3.4-5.0) L Globulin 3.4 g/dL Albumin/Globulin Ratio 0.6 (1.0-2.7) L Amylase Level 43 U/L (25-115) Lipase 261 U/L (73-393) Phenytoin (Dilantin) Level 44.1 ug/mL (10-20) *H Height (Feet): 5 Height (Inches): 11.00 Weight (Pounds): 145 Medications Current Medications Medications (Trade) Dose Ordered Sig/Obdulia Route PRN Reason Start Time Stop Time Status Last Admin Dose Admin Acetaminophen (Tylenol) 650 mg Q4H PRN ORAL fever 04/24/18 17:15 05/24/18 17:14 04/30/18 18:01 Al Hydroxide/Mg Hydroxide (Mylanta II) 30 ml Q6H PRN ORAL dyspepsia 04/24/18 17:15 05/24/18 17:14 Amlodipine Besylate (Norvasc) 10 mg DAILY ORAL 04/25/18 09:00 05/25/18 08:59 05/02/18 10:31 Dextrose (Dextrose 50%) 25 ml Q30M PRN IV Hypoglycemia 04/24/18 17:15 05/24/18 17:14 Dextrose (Dextrose 50%) 50 ml Q30M PRN IV Hypoglycemia 04/24/18 17:15 05/24/18 17:14 Dextrose/ Electrolytes 1,000 ml @ 100 mls/hr Q10H IV 04/30/18 15:30 05/29/18 15:29 05/02/18 10:26 Diphenhydramine HCl (Benadryl) 25 mg Q6H PRN IVP Itching 04/26/18 16:30 05/26/18 16:29 04/28/18 05:32 Folic Acid (Folate) 1 mg DAILY ORAL 04/25/18 12:00 05/25/18 11:59 05/02/18 10:31 Gabapentin (Neurontin) 300 mg THREE TIMES A DAY ORAL 04/25/18 18:00 05/25/18 17:59 05/02/18 12:30 Heparin Sodium (Porcine) (Heparin 5000 units/ml) 5,000 units EVERY 12 HOURS SUBQ 04/24/18 21:00 05/24/18 20:59 05/02/18 10:34 Hydralazine HCl (Apresoline) 25 mg EVERY 8 HOURS ORAL 04/24/18 22:00 05/24/18 21:59 05/02/18 05:40 Lactulose (Cephulac) 10 gm THREE TIMES A DAY ORAL 04/29/18 13:30 05/29/18 13:29 05/02/18 12:30 Levetiracetam (Keppra) 500 mg EVERY 12 HOURS ORAL 04/24/18 21:00 05/24/18 20:59 05/02/18 10:31 Lorazepam (Ativan 2mg/ml 1ml) 1 mg Q6H PRN IVP For Anxiety 04/27/18 04:15 05/04/18 04:14 05/01/18 05:35 Meropenem 1 gm/ Sodium Chloride 55 ml @ 110 mls/hr Q8HR IVPB 05/01/18 14:00 05/06/18 13:59 05/02/18 05:40 Ondansetron HCl (Zofran) 4 mg Q6H PRN IVP Nausea & Vomiting 04/24/18 17:15 05/24/18 17:14 04/26/18 09:00 Oxycodone/ Acetaminophen (Percocet 5-325) 1 tab Q4H PRN ORAL severe pain 04/27/18 15:30 05/04/18 15:29 05/02/18 10:27 Polyethylene Glycol (Miralax) 17 gm HSPRN PRN ORAL Constipation 04/24/18 17:15 05/24/18 17:14 Rifaximin (Xifaxan) 550 mg EVERY 12 HOURS ORAL 04/30/18 21:00 05/07/18 20:59 05/02/18 10:31 Vancomycin HCl (Vanco rx to dose) 1 ea DAILY PRN MISC Per rx protocol 04/26/18 13:45 05/26/18 13:44 Vancomycin HCl 1.5 gm/Dextrose 275 ml @ 137.5 mls/ hr Q12H IVPB 05/02/18 09:00 05/07/18 08:59 05/02/18 10:34 Assessment/Plan Problem List: (1) Transaminitis Assessment & Plan: reviewed chart discussed with GI likely due to drug toxicity. ICD Codes: R74.0 - Nonspecific elevation of levels of transaminase and lactic acid dehydrogenase [LDH] SNOMED: 920407470, 494625491 (2) Elevated alkaline phosphatase level ICD Codes: R74.8 - Abnormal levels of other serum enzymes SNOMED: 184503231 (3) Intractable pain Assessment & Plan: US noted MRI noted HIDA noted possible acute acalculous cholecystitis. exam difficult given history labs with resolved leukocytosis lft's abnormal from drug toxicity trend labs okay for diet will follow clinically ICD Codes: R52 - Pain, unspecified SNOMED: 20454069 (4) Sepsis ICD Codes: A41.9 - Sepsis, unspecified organism SNOMED: 17827583 Jamin Lynch May 02, 2018 13:11
--- NOTE | 2018-05-02 13:17 | NUR ---
[facility] DEPARTMENT SI: DEHYDRATION/ INTRACTABLE PAIN VS: BP 130/72, P 107, T 99.5, RR 24, SpO2 98 Room Air RBC 3.52, Hgb 11.7, Hct 34.6, Lymphocytes% 8, Eosinophils% 30 HIDA Scan Impression: Poor hepatic tracer uptake, no biliary excretion. Findings most likely represents severe hepatocellular disease. Findings are nondiagnostic as regards cystic duct or common bile duct patency. IS: Keppra Apresoline Gabapentin Vancomycin Meropenem 110cc/hr MED/SURG STATUS
--- NOTE | 2018-05-02 13:55 | General Progress Note ---
Assessment/Plan Problem List: (1) Head ache ICD Codes: R51 - Headache SNOMED: 28918503 (2) Weak ICD Codes: R53.1 - Weakness SNOMED: 09038657 (3) HTN (hypertension) ICD Codes: I10 - Essential (primary) hypertension SNOMED: 30025474 (4) Malnutrition ICD Codes: E46 - Unspecified protein-calorie malnutrition SNOMED: 93428763 (5) Epilepsy ICD Codes: G40.909 - Epilepsy, unspecified, not intractable, without status epilepticus SNOMED: 42578288 (6) Intractable pain ICD Codes: R52 - Pain, unspecified SNOMED: 88879634 Status: unchanged Assessment/Plan pt diet pain control neuro psyc eval abx prn cbc bmp am dc plan if clear Subjective Constitutional: Reports: weakness Allergies: Coded Allergies: GADOBUTROL (Verified Allergy, Intermediate, 04/30/18) Uncoded Allergies: CONTRAST (Allergy, Mild, Rash, 04/26/18) All Systems: reviewed and negative except above Subjective sleepy c/o some head ache Objective Last 24 Hour Vital Signs Date Time Temp Pulse Resp B/P (MAP) Pulse Ox O2 Delivery O2 Flow Rate FiO2 05/02/18 12:00 99.5 107 24 122/67 (85) 98 05/02/18 10:31 107 127/87 05/02/18 10:00 Room Air 05/02/18 05:40 130/72 05/02/18 04:35 98.6 99 24 130/72 (91) 100 05/01/18 23:55 99.5 103 24 119/79 (92) 99 05/01/18 22:13 118/69 05/01/18 21:00 Room Air 05/01/18 20:00 97.8 101 24 118/69 (85) 100 05/01/18 16:01 97.8 99 20 114/72 (86) 97 Intake and Output 05/01/18 05/02/18 18:59 06:59 Intake Total 550.000 ml 1170 ml Output Total 500 ml 600 ml Balance 50.000 ml 570 ml Intake Oral 220 ml 360 ml IV Total 330.000 ml 810 ml Output Urine Total 500 ml 600 ml # Voids 1 Laboratory Tests 05/01/18 20:45: Vancomycin Level Trough 25.8H 05/02/18 05:35: White Blood Count 9.7, Red Blood Count 3.52L, Hemoglobin 11.7L, Hematocrit 34.6L , Mean Corpuscular Volume 98, Mean Corpuscular Hemoglobin 33.1H, Mean Corpuscular Hemoglobin Concent 33.7, Red Cell Distribution Width 12.3, Platelet Count 295, Mean Platelet Volume 6.3L, Neutrophils (%) (Auto) , Lymphocytes (%) ( Auto) , Monocytes (%) (Auto) , Eosinophils (%) (Auto) , Basophils (%) (Auto) , Differential Total Cells Counted 100, Neutrophils % (Manual) 57, Lymphocytes % ( Manual) 8L, Monocytes % (Manual) 5, Eosinophils % (Manual) 30H, Basophils % ( Manual) 0, Band Neutrophils 0, Platelet Estimate Adequate, Platelet Morphology Normal, Red Blood Cell Morphology Normal, Sodium Level 135L, Potassium Level 3.9 , Chloride Level 103, Carbon Dioxide Level 24, Anion Gap 8, Blood Urea Nitrogen 16, Creatinine 1.4H, Estimat Glomerular Filtration Rate > 60, Glucose Level 124H , Calcium Level 8.3L, Total Bilirubin 7.7H, Direct Bilirubin 6.3H, Aspartate Amino Transf (AST/SGOT) 77H, Alanine Aminotransferase (ALT/SGPT) 96H, Alkaline Phosphatase 963H, Total Protein 5.6L, Albumin 2.2L, Globulin 3.4, Albumin/ Globulin Ratio 0.6L, Amylase Level 43, Lipase 261, Phenytoin (Dilantin) Level 44.1*H Height (Feet): 5 Height (Inches): 11.00 Weight (Pounds): 145 General Appearance: lethargic EENT: normal ENT inspection Neck: normal alignment Cardiovascular: normal peripheral pulses, normal rate, regular rhythm Respiratory/Chest: chest wall non-tender, lungs clear, normal breath sounds Abdomen: normal bowel sounds, non tender, soft Extremities: normal inspection Edema: no edema noted Arm (L), no edema noted Arm (R), no edema noted Leg (L), no edema noted Leg (R), no edema noted Pedal (L), no edema noted Pedal (R), no edema noted Generalized Neurologic: motor weakness Skin: normal pigmentation, warm/dry Neri Cat DO May 02, 2018 13:55
--- NOTE | 2018-05-02 14:00 | NUR ---
NURSE NOTES: Patient refused Hydralazine. explained risks of not taking medication as ordered, patient continued to refuse and covered his head with his blanket. Patient allowed RN to infuse Merrem as ordered but became agitated and turned over to face the other direction and placed a pillow over his head. Patient denies pain at this time. patient appears lethargic but is arousable to verbal stimuli and is oriented to his baseline. Patient spoke to his sister on the phone then went back to sleep and covered his head with his blanket. All safety measures provided, seizure precautions in place. Patient in bed with call light within reach and sitter is at bedside, will continue to monitor.
--- NOTE | 2018-05-02 14:48 | Pulmonology Progress Note ---
Assessment/Plan Problems: (1) Drug-induced hepatic toxicity (2) Transaminitis (3) Phenytoin toxicity (4) Sepsis (5) History of craniotomy (6) Intractable pain (7) Head ache (8) Brain tumor Assessment/Plan GI evaluaiton iv fluids f/u liver enzymes symptomatic treatment neuro evaluation pain management Subjective ROS Limited/Unobtainable: No Constitutional: Reports: no symptoms Respiratory: Reports: no symptoms Allergies: Coded Allergies: GADOBUTROL (Verified Allergy, Intermediate, 04/30/18) Uncoded Allergies: CONTRAST (Allergy, Mild, Rash, 04/26/18) Objective Last 24 Hour Vital Signs Date Time Temp Pulse Resp B/P (MAP) Pulse Ox O2 Delivery O2 Flow Rate FiO2 05/02/18 14:00 117/61 05/02/18 12:00 99.5 107 24 122/67 (85) 98 05/02/18 10:31 107 127/87 05/02/18 10:00 Room Air 05/02/18 05:40 130/72 05/02/18 04:35 98.6 99 24 130/72 (91) 100 05/01/18 23:55 99.5 103 24 119/79 (92) 99 05/01/18 22:13 118/69 05/01/18 21:00 Room Air 05/01/18 20:00 97.8 101 24 118/69 (85) 100 05/01/18 16:01 97.8 99 20 114/72 (86) 97 Intake and Output 05/01/18 05/02/18 18:59 06:59 Intake Total 550.000 ml 1170 ml Output Total 500 ml 600 ml Balance 50.000 ml 570 ml Intake Oral 220 ml 360 ml IV Total 330.000 ml 810 ml Output Urine Total 500 ml 600 ml # Voids 1 Objective General Appearance: WD/WN HEENT: normocephalic Respiratory/Chest: chest wall non-tender, lungs clear, normal breath sounds Breasts: no masses Cardiovascular: normal peripheral pulses, normal rate Abdomen: normal bowel sounds, soft, non tender Extremities: no cyanosis Skin: no rash Laboratory Tests 05/01/18 20:45: Vancomycin Level Trough 25.8H 05/02/18 05:35: White Blood Count 9.7, Red Blood Count 3.52L, Hemoglobin 11.7L, Hematocrit 34.6L , Mean Corpuscular Volume 98, Mean Corpuscular Hemoglobin 33.1H, Mean Corpuscular Hemoglobin Concent 33.7, Red Cell Distribution Width 12.3, Platelet Count 295, Mean Platelet Volume 6.3L, Neutrophils (%) (Auto) , Lymphocytes (%) ( Auto) , Monocytes (%) (Auto) , Eosinophils (%) (Auto) , Basophils (%) (Auto) , Differential Total Cells Counted 100, Neutrophils % (Manual) 57, Lymphocytes % ( Manual) 8L, Monocytes % (Manual) 5, Eosinophils % (Manual) 30H, Basophils % ( Manual) 0, Band Neutrophils 0, Platelet Estimate Adequate, Platelet Morphology Normal, Red Blood Cell Morphology Normal, Sodium Level 135L, Potassium Level 3.9 , Chloride Level 103, Carbon Dioxide Level 24, Anion Gap 8, Blood Urea Nitrogen 16, Creatinine 1.4H, Estimat Glomerular Filtration Rate > 60, Glucose Level 124H , Calcium Level 8.3L, Total Bilirubin 7.7H, Direct Bilirubin 6.3H, Aspartate Amino Transf (AST/SGOT) 77H, Alanine Aminotransferase (ALT/SGPT) 96H, Alkaline Phosphatase 963H, Total Protein 5.6L, Albumin 2.2L, Globulin 3.4, Albumin/ Globulin Ratio 0.6L, Amylase Level 43, Lipase 261, Phenytoin (Dilantin) Level 44.1*H Current Medications Medications (Trade) Dose Ordered Sig/Obdulia Route PRN Reason Start Time Stop Time Status Last Admin Dose Admin Acetaminophen (Tylenol) 650 mg Q4H PRN ORAL fever 04/24/18 17:15 05/24/18 17:14 04/30/18 18:01 Al Hydroxide/Mg Hydroxide (Mylanta II) 30 ml Q6H PRN ORAL dyspepsia 04/24/18 17:15 05/24/18 17:14 Amlodipine Besylate (Norvasc) 10 mg DAILY ORAL 04/25/18 09:00 05/25/18 08:59 05/02/18 10:31 Dextrose (Dextrose 50%) 25 ml Q30M PRN IV Hypoglycemia 04/24/18 17:15 05/24/18 17:14 Dextrose (Dextrose 50%) 50 ml Q30M PRN IV Hypoglycemia 04/24/18 17:15 05/24/18 17:14 Dextrose/ Electrolytes 1,000 ml @ 100 mls/hr Q10H IV 04/30/18 15:30 05/29/18 15:29 05/02/18 10:26 Diphenhydramine HCl (Benadryl) 25 mg Q6H PRN IVP Itching 04/26/18 16:30 05/26/18 16:29 04/28/18 05:32 Folic Acid (Folate) 1 mg DAILY ORAL 04/25/18 12:00 05/25/18 11:59 05/02/18 10:31 Gabapentin (Neurontin) 300 mg THREE TIMES A DAY ORAL 04/25/18 18:00 05/25/18 17:59 05/02/18 12:30 Heparin Sodium (Porcine) (Heparin 5000 units/ml) 5,000 units EVERY 12 HOURS SUBQ 04/24/18 21:00 05/24/18 20:59 05/02/18 10:34 Hydralazine HCl (Apresoline) 25 mg EVERY 8 HOURS ORAL 04/24/18 22:00 05/24/18 21:59 05/02/18 05:40 Lactulose (Cephulac) 10 gm THREE TIMES A DAY ORAL 04/29/18 13:30 05/29/18 13:29 05/02/18 12:30 Levetiracetam (Keppra) 500 mg EVERY 12 HOURS ORAL 04/24/18 21:00 05/24/18 20:59 05/02/18 10:31 Lorazepam (Ativan 2mg/ml 1ml) 1 mg Q6H PRN IVP For Anxiety 04/27/18 04:15 05/04/18 04:14 05/01/18 05:35 Meropenem 1 gm/ Sodium Chloride 55 ml @ 110 mls/hr Q8HR IVPB 05/01/18 14:00 05/06/18 13:59 05/02/18 13:52 Ondansetron HCl (Zofran) 4 mg Q6H PRN IVP Nausea & Vomiting 04/24/18 17:15 05/24/18 17:14 04/26/18 09:00 Oxycodone/ Acetaminophen (Percocet 5-325) 1 tab Q4H PRN ORAL severe pain 04/27/18 15:30 05/04/18 15:29 05/02/18 10:27 Polyethylene Glycol (Miralax) 17 gm HSPRN PRN ORAL Constipation 04/24/18 17:15 05/24/18 17:14 Rifaximin (Xifaxan) 550 mg EVERY 12 HOURS ORAL 04/30/18 21:00 05/07/18 20:59 05/02/18 10:31 Vancomycin HCl (Vanco rx to dose) 1 ea DAILY PRN MISC Per rx protocol 04/26/18 13:45 05/26/18 13:44 Vancomycin HCl 1.5 gm/Dextrose 275 ml @ 137.5 mls/ hr Q12H IVPB 05/02/18 09:00 05/07/18 08:59 05/02/18 10:34 Millicent Armas MD May 02, 2018 14:48
--- NOTE | 2018-05-02 15:12 | NUR ---
RD ASSESSMENT & RECOMMENDATIONS SEE CARE ACTIVITY FOR COMPLETE ASSESSMENT DAILY ESTIMATED NEEDS: Needs based on Underweight, hepatic, wound 66kg 25-35 kcals/kg 3325-0819 total kcals 1.25-1.5 g protein/kg 83-99 g total protein 25-30 mL/kg 6214-0007 total fluid mLs NUTRITION DIAGNOSIS: 1) Increased kcal and protein needs r/t low weight and wound healing as evidenced by pt is 84% of ideal body weight, w. poor po intake, w/ partial thickness anterior head injury. 2) Altered nutrition related lab values r/t clinical status, transaminitis as evidenced by elev T bili (7.7 trend up) w/ elev LFT's. CURRENT DIET: Regular PO DIET RECOMMENDATIONS: LIBERAL REGULAR DIET W/ CURRENT POOR PO INTAKE ADDITIONAL RECOMMENDATIONS: 1) H/o seizures and brain tumor-- rec RAW [employer] eval for appropriate texture 2) Add ENSURE 1 bottle BID in b/w meals 3) Wound care: ROGELIO BID + MVI + VIT C 250mg daily 4) Snacks in b/w meals, encourage po intake 5) Obtain a calibrated bed scale wt as able 6) Consider appetite stimulant- consistently poor PO
[2018-05-02 16:00] VITALS: BP 121/74
--- NOTE | 2018-05-02 16:48 | General Progress Note ---
Assessment/Plan Assessment/Plan (1) Headache (2) Brain neoplasm s/p craniotomy and resection Patient to be continued on Neurontin and Percocet. D/w Dr. Delarosa and he concurred. Subjective Date patient seen: May 02, 2018 Time patient seen: 03:00 - pm Allergies: Coded Allergies: GADOBUTROL (Verified Allergy, Intermediate, 04/30/18) Uncoded Allergies: CONTRAST (Allergy, Mild, Rash, 04/26/18) Subjective REVIEW OF SYSTEMS: Denies rash, fever, chills, sweating, dizziness, drowsiness, blurred vision, sore throat, or change in his weight. No shortness of breath, chest pain, palpitations, or cough. No nausea, vomiting, diarrhea, or blood in stool or urine. He complains of headaches. SUBJECTIVE: Patient has been tolerating the pain on the Percocet He has no new complaints at this time. Objective Last 24 Hour Vital Signs Date Time Temp Pulse Resp B/P (MAP) Pulse Ox O2 Delivery O2 Flow Rate FiO2 05/02/18 16:00 99.3 104 24 121/74 (90) 97 05/02/18 14:00 117/61 05/02/18 12:00 99.5 107 24 122/67 (85) 98 05/02/18 10:31 107 127/87 05/02/18 10:00 Room Air 05/02/18 05:40 130/72 05/02/18 04:35 98.6 99 24 130/72 (91) 100 05/01/18 23:55 99.5 103 24 119/79 (92) 99 05/01/18 22:13 118/69 05/01/18 21:00 Room Air 05/01/18 20:00 97.8 101 24 118/69 (85) 100 Intake and Output 05/01/18 05/02/18 18:59 06:59 Intake Total 550.000 ml 1170 ml Output Total 500 ml 600 ml Balance 50.000 ml 570 ml Intake Oral 220 ml 360 ml IV Total 330.000 ml 810 ml Output Urine Total 500 ml 600 ml # Voids 1 Laboratory Tests 05/01/18 20:45: Vancomycin Level Trough 25.8H 05/02/18 05:35: White Blood Count 9.7, Red Blood Count 3.52L, Hemoglobin 11.7L, Hematocrit 34.6L , Mean Corpuscular Volume 98, Mean Corpuscular Hemoglobin 33.1H, Mean Corpuscular Hemoglobin Concent 33.7, Red Cell Distribution Width 12.3, Platelet Count 295, Mean Platelet Volume 6.3L, Neutrophils (%) (Auto) , Lymphocytes (%) ( Auto) , Monocytes (%) (Auto) , Eosinophils (%) (Auto) , Basophils (%) (Auto) , Differential Total Cells Counted 100, Neutrophils % (Manual) 57, Lymphocytes % ( Manual) 8L, Monocytes % (Manual) 5, Eosinophils % (Manual) 30H, Basophils % ( Manual) 0, Band Neutrophils 0, Platelet Estimate Adequate, Platelet Morphology Normal, Red Blood Cell Morphology Normal, Sodium Level 135L, Potassium Level 3.9 , Chloride Level 103, Carbon Dioxide Level 24, Anion Gap 8, Blood Urea Nitrogen 16, Creatinine 1.4H, Estimat Glomerular Filtration Rate > 60, Glucose Level 124H , Calcium Level 8.3L, Total Bilirubin 7.7H, Direct Bilirubin 6.3H, Aspartate Amino Transf (AST/SGOT) 77H, Alanine Aminotransferase (ALT/SGPT) 96H, Alkaline Phosphatase 963H, Total Protein 5.6L, Albumin 2.2L, Globulin 3.4, Albumin/ Globulin Ratio 0.6L, Amylase Level 43, Lipase 261, Phenytoin (Dilantin) Level 44.1*H 05/02/18 15:40: Phenytoin (Dilantin) Level 40.0*H Height (Feet): 5 Height (Inches): 11.00 Weight (Pounds): 145 Objective GENERAL: Alert, awake, and oriented. LUNGS: Clear bilaterally. HEART: S1 and S2, regular. ABDOMEN: Soft and nontender. EXTREMITIES: No cyanosis. No clubbing. No edema. NEURO: No changes. Albert Hoyos May 02, 2018 16:48
--- NOTE | 2018-05-02 18:06 | NUR ---
NURSE NOTES: Message left for SAM [employer] Tech regarding EEG order. Awaiting call back.
--- NOTE | 2018-05-02 18:50 | NUR ---
NURSE NOTES: SAM Ace tech returned phone call, stated he will come by shortly for exam.
--- NOTE | 2018-05-02 19:55 | NUR ---
NURSE NOTES: Received report form BELEN Leon. Patient A&Ox1-2. On room air. no signs of distress or labored breathing. IV intact, patent, and infusing IV fluids. Sitter at bedside. Bed in lowest position with call light in reach. Will continue with plan of care.
--- NOTE | 2018-05-02 19:59 | NUR ---
HAND-OFF: Report given to Deja RN. Patient is stable.
[2018-05-02 20:00] VITALS: BP 139/73
--- NOTE | 2018-05-02 23:30 | Progress Note ---
DATE: 05/02/2018 SUBJECTIVE: The patient is going down for his HIDA scan. His Dilantin level is 44. Dilantin for 24 hours. The nurses think that his mental status may be slightly improved, but he is still somnolent. PHYSICAL EXAMINATION: ABDOMEN: He has some guarding of his abdomen, but there does not appear to be any significant tenderness. NEUROLOGIC: Mental Status: He is agitated. He cannot answer the name. He does not know the date or the time. CRANIAL NERVE EXAMINATION: Cranial Nerve II: Visual esteban difficult to fully evaluate. Cranial Nerves III, IV, and : There is right and left gaze evoked horizontal jerk nystagmus . CRANIAL NERVE V: Corneal sensation was intact to fine touch. CRANIAL NERVE VII: Facial strength 5/5. CRANIAL NERVE VIII: Auditory acuity is partially intact. MUSCLE EXAMINATION: He moves all 4 extremities. There is asterixis in the upper extremities. REFLEXES: Zero with downgoing toes when tested for Babinski response. SENSORY: The patient does react to pain in the extremities. IMPRESSION: The patient has metabolic encephalopathy probably due to his elevated Dilantin level, which could also be causing his asterixis. It is unclear if the Dilantin is causing his hepatic insufficiency. His alkaline phosphatase is elevated. He does not have a fever this morning, but had rather mild fever last night. He could have cholecystitis. the infectious disease doctor yesterday felt that the patient may have cholecystitis with the cause of fever or abnormal liver function tests. Meningitis seems to be unlikely at this point. Therefore, I do not think he needs a lumbar puncture. PLAN: 1. Continue off Dilantin. 2. HIDA scan this morning. Korey Parada MD DR: BECKY JOB#: [id number] CC:
[2018-05-02] MEDS: DiphenhydrAMINE 50mg/ml Inj IVP PRN (23:53)
[2018-05-03] VITALS (7 sets, daily range): BP systolic 114–150; BP diastolic 64–89
[2018-05-03] MEDS: Meropenem 1 GM in NS 55 ML IVPB SCH ×4 (01:30→22:59)
[2018-05-03] MEDS: HydrALAZINE 25mg tab ORAL SCH ×3 (05:32→22:00)
--- NOTE | 2018-05-03 07:12 | NUR ---
HAND-OFF: Report given to BELEN Cordova.
[2018-05-03 07:30] LABS: HEMATOCRIT 36.9 % (42.0-52.0); HEMOGLOBIN 12.4 G/DL (14.2-18.0); MEAN CORPUSCULAR VOLUME 98 FL (80-99); PLATELET COUNT 364 K/UL (150-450); RED BLOOD COUNT 3.76 M/UL (4.70-6.10); RED CELL DISTRIBUTION WIDTH 12.6 % (11.6-14.8); WHITE BLOOD COUNT 10.2 K/UL (4.8-10.8)
--- NOTE | 2018-05-03 07:40 | NUR ---
NURSE NOTES: received report from BELEN Short. patient in bed. alert, verbally responsive no respiratory distress noted. no c/o pain at this time. bed in the lowest position. call light within reach. alarm on. will continue to monitor.
[2018-05-03 07:58] LABS: ALANINE AMINOTRANSFERASE 88 U/L (12-78); ALBUMIN 2.2 G/DL (3.4-5.0); ALBUMIN/GLOBULIN RATIO 0.6 (1.0-2.7); ALKALINE PHOSPHATASE 1142 U/L (46-116); ANION GAP 8 mmol/L (5-15); ASPARTATE AMINO TRANSFERASE 81 U/L (15-37); BLOOD UREA NITROGEN 14 mg/dL (7-18); CALCIUM 8.4 MG/DL (8.5-10.1); CARBON DIOXIDE 26 MMOL/L (21-32); CHLORIDE 104 MMOL/L (98-107); CREATININE 1.4 MG/DL (0.55-1.30); POTASSIUM 4.1 MMOL/L (3.5-5.1); SODIUM 138 MMOL/L (136-145)
[2018-05-03 08:02] LABS: BILIRUBIN,DIRECT 7.5 MG/DL (0.0-0.3)
--- NOTE | 2018-05-03 08:11 | NUR ---
NURSE NOTES: received call from [facility]. phenytoin level 41.7. notified
--- NOTE | 2018-05-03 08:35 | Nephrology Progress Note ---
Assessment/Plan Assessment 1. Hypovolemic hyponatremia 2. Dilantin toxicity 3. History of brain tumor, status post craniotomy. 4. History of seizure. Plan due to high protein binding effect of Dilantin and medication formula its not dialyzable ( case also was discussed with poison control ) increase ivf monitoring renal function avoid NSAID Mix all ivpb with NS.9 Subjective Subjective awake confused Objective Objective Last 24 Hour Vital Signs Date Time Temp Pulse Resp B/P (MAP) Pulse Ox O2 Delivery O2 Flow Rate FiO2 05/03/18 05:32 124/85 05/03/18 04:00 97.9 95 20 124/85 (98) 96 05/03/18 00:00 98.1 99 22 114/64 (81) 96 05/02/18 21:53 139/73 05/02/18 21:00 Room Air 05/02/18 20:00 98.2 101 22 139/73 (95) 95 05/02/18 16:00 99.3 104 24 121/74 (90) 97 05/02/18 14:00 117/61 05/02/18 12:00 99.5 107 24 122/67 (85) 98 05/02/18 10:31 107 127/87 05/02/18 10:00 Room Air Intake and Output 05/02/18 05/03/18 19:00 07:00 Intake Total 360 ml Output Total 500 ml 850 ml Balance -140 ml -850 ml Intake Oral 360 ml Output Urine Total 500 ml 850 ml # Voids 3 Laboratory Tests 05/02/18 15:40: Phenytoin (Dilantin) Level 40.0*H, Free Phenytoin Level [Pending] 05/03/18 06:15: Phenytoin (Dilantin) Level 41.7*H, White Blood Count 10.2, Red Blood Count 3.76L , Hemoglobin 12.4L, Hematocrit 36.9L, Mean Corpuscular Volume 98, Mean Corpuscular Hemoglobin 33.0H, Mean Corpuscular Hemoglobin Concent 33.6, Red Cell Distribution Width 12.6, Platelet Count 364, Mean Platelet Volume 6.1L, Neutrophils (%) (Auto) , Lymphocytes (%) (Auto) , Monocytes (%) (Auto) , Eosinophils (%) (Auto) , Basophils (%) (Auto) , Neutrophils % (Manual) [Pending] , Lymphocytes % (Manual) [Pending], Platelet Estimate [Pending], Platelet Morphology [Pending], Sodium Level 138, Potassium Level 4.1, Chloride Level 104 , Carbon Dioxide Level 26, Anion Gap 8, Blood Urea Nitrogen 14, Creatinine 1.4H , Estimat Glomerular Filtration Rate > 60, Glucose Level 132H, Calcium Level 8.4L, Total Bilirubin 9.0H, Direct Bilirubin 7.5H, Aspartate Amino Transf (AST/ SGOT) 81H, Alanine Aminotransferase (ALT/SGPT) 88H, Alkaline Phosphatase 1142H, Total Protein 5.8L, Albumin 2.2L, Globulin 3.6, Albumin/Globulin Ratio 0.6L Height (Feet): 5 Height (Inches): 11.00 Weight (Pounds): 148 Objective HEAD AND NECK: He has scar from the craniotomy. No LAD. Extraocular movement intact. Pupils are reactive to light and accommodation. LUNGS: Clear to auscultation. CARDIAC: Regular rate and rhythm. S1 and S2. No murmur. No rub. ABDOMEN: Soft, nontender, and nondistended. EXTREMITIES: No edema. No clubbing. No cyanosis. Marielena Romero MD May 03, 2018 08:35
--- NOTE | 2018-05-03 08:52 | General Progress Note ---
Assessment/Plan Assessment/Plan (1) Headache (2) Brain neoplasm s/p craniotomy and resection Patient to be continued on Neurontin and Percocet. D/w Dr. Delarosa and he concurred. Subjective Date patient seen: May 03, 2018 Time patient seen: 07:30 - am Allergies: Coded Allergies: GADOBUTROL (Verified Allergy, Intermediate, 04/30/18) PHENYTOIN (Verified Allergy, Unknown, 05/03/18) Drug hypersensitivity syndrome; hepatotoxicity Uncoded Allergies: CONTRAST (Allergy, Mild, Rash, 05/03/18) questionable if it was due to contrast; patient at the time (April 2018) also had dilantin reaction (probably rash was due to dilantin) Subjective REVIEW OF SYSTEMS: Denies rash, fever, chills, sweating, dizziness, drowsiness, blurred vision, sore throat, or change in his weight. No shortness of breath, chest pain, palpitations, or cough. No nausea, vomiting, diarrhea, or blood in stool or urine. He complains of headaches. SUBJECTIVE: Patient is in bed and continues to c/o headaches which has been tolerated on the Percocet. No new complaints at this time. Objective Last 24 Hour Vital Signs Date Time Temp Pulse Resp B/P (MAP) Pulse Ox O2 Delivery O2 Flow Rate FiO2 05/03/18 05:32 124/85 05/03/18 04:00 97.9 95 20 124/85 (98) 96 05/03/18 00:00 98.1 99 22 114/64 (81) 96 05/02/18 21:53 139/73 05/02/18 21:00 Room Air 05/02/18 20:00 98.2 101 22 139/73 (95) 95 05/02/18 16:00 99.3 104 24 121/74 (90) 97 05/02/18 14:00 117/61 05/02/18 12:00 99.5 107 24 122/67 (85) 98 05/02/18 10:31 107 127/87 05/02/18 10:00 Room Air Intake and Output 05/02/18 05/03/18 19:00 07:00 Intake Total 360 ml Output Total 500 ml 850 ml Balance -140 ml -850 ml Intake Oral 360 ml Output Urine Total 500 ml 850 ml # Voids 3 Laboratory Tests 05/02/18 15:40: Phenytoin (Dilantin) Level 40.0*H, Free Phenytoin Level [Pending] 05/03/18 06:15: Phenytoin (Dilantin) Level 41.7*H, White Blood Count 10.2, Red Blood Count 3.76L , Hemoglobin 12.4L, Hematocrit 36.9L, Mean Corpuscular Volume 98, Mean Corpuscular Hemoglobin 33.0H, Mean Corpuscular Hemoglobin Concent 33.6, Red Cell Distribution Width 12.6, Platelet Count 364, Mean Platelet Volume 6.1L, Neutrophils (%) (Auto) , Lymphocytes (%) (Auto) , Monocytes (%) (Auto) , Eosinophils (%) (Auto) , Basophils (%) (Auto) , Neutrophils % (Manual) [Pending] , Lymphocytes % (Manual) [Pending], Platelet Estimate [Pending], Platelet Morphology [Pending], Sodium Level 138, Potassium Level 4.1, Chloride Level 104 , Carbon Dioxide Level 26, Anion Gap 8, Blood Urea Nitrogen 14, Creatinine 1.4H , Estimat Glomerular Filtration Rate > 60, Glucose Level 132H, Calcium Level 8.4L, Total Bilirubin 9.0H, Direct Bilirubin 7.5H, Aspartate Amino Transf (AST/ SGOT) 81H, Alanine Aminotransferase (ALT/SGPT) 88H, Alkaline Phosphatase 1142H, Total Protein 5.8L, Albumin 2.2L, Globulin 3.6, Albumin/Globulin Ratio 0.6L Height (Feet): 5 Height (Inches): 11.00 Weight (Pounds): 148 Objective GENERAL: Alert, awake, and oriented. LUNGS: Clear bilaterally. HEART: S1 and S2, regular. ABDOMEN: Soft and nontender. EXTREMITIES: No cyanosis. No clubbing. No edema. NEURO: No changes. Albert Hoyos May 03, 2018 08:52
[2018-05-03] MEDS: Heparin 5000 units/ml inj SUBQ SCH ×2 (09:00→21:00)
[2018-05-03] MEDS: Lactulose 10gm/15ml UDC ORAL SCH ×3 (09:00→18:00)
--- NOTE | 2018-05-03 09:40 | NUR ---
NURSE NOTES: patient refused to take medications d/t N/V. offered Zofran IVP but patient refused. explained risks and benefits. patient refused.
[2018-05-03] MEDS: Vancomycin 1.5 GM in D5W 275 ML IVPB SCH (10:53)
--- NOTE | 2018-05-03 11:27 | GI Progress Note ---
Assessment/Plan Problems: (1) Weak ICD Codes: R53.1 - Weakness SNOMED: 49180726 (2) Malnutrition ICD Codes: E46 - Unspecified protein-calorie malnutrition SNOMED: 72235855 (3) Brain tumor ICD Codes: D49.6 - Neoplasm of unspecified behavior of brain SNOMED: 791543219 (4) Transaminitis ICD Codes: R74.0 - Nonspecific elevation of levels of transaminase and lactic acid dehydrogenase [LDH] SNOMED: 449292374, 407538114 (5) Anemia ICD Codes: D64.9 - Anemia, unspecified SNOMED: 563367810 (6) Intractable pain ICD Codes: R52 - Pain, unspecified SNOMED: 79308261 (7) Phenytoin toxicity ICD Codes: T42.0X1A - Poisoning by hydantoin derivatives, accidental ( unintentional), initial encounter SNOMED: 26820641 Status: unchanged Status Narrative Discussed with Dr. Kimball Assessment/Plan Head CT reviewed lipase normal abdominal US reviewed, negative follow Hepatitis panel, negative MRCP reviewed, negative for common bile duct dilation. Possible cholecystitis. AMA and SMA negative Phenytoin toxicity >> DC Dilantin possible EUS tuesday OB stool r/o GI bleed monitor H&H, prn transfusions bowel regime ppi lactulose + xifaxan repeat ammonia level in am Outpatient GI procedures The patient was seen and examined at bedside and all new and available data was reviewed in the patients chart. I agree with the above findings, impression and plan. (Patient seen earlier today. Signature stamp does not reflect patient encounter time.). - Barry Kimball MD Subjective Gastrointestinal/Abdominal: Reports: no symptoms Subjective REES Objective Last 24 Hour Vital Signs Date Time Temp Pulse Resp B/P (MAP) Pulse Ox O2 Delivery O2 Flow Rate FiO2 05/03/18 09:00 Room Air 05/03/18 08:00 97.0 108 18 146/84 (104) 97 05/03/18 05:32 124/85 05/03/18 04:00 97.9 95 20 124/85 (98) 96 05/03/18 00:00 98.1 99 22 114/64 (81) 96 05/02/18 21:53 139/73 05/02/18 21:00 Room Air 05/02/18 20:00 98.2 101 22 139/73 (95) 95 05/02/18 16:00 99.3 104 24 121/74 (90) 97 05/02/18 14:00 117/61 05/02/18 12:00 99.5 107 24 122/67 (85) 98 Intake and Output 05/02/18 05/03/18 19:00 07:00 Intake Total 360 ml Output Total 500 ml 850 ml Balance -140 ml -850 ml Intake Oral 360 ml Output Urine Total 500 ml 850 ml # Voids 3 Laboratory Tests Test 05/02/18 15:40 05/03/18 06:15 Phenytoin (Dilantin) Level 40.0 ug/mL (10-20) *H 41.7 ug/mL (10-20) *H Free Phenytoin Level Pending White Blood Count 10.2 K/UL (4.8-10.8) Red Blood Count 3.76 M/UL (4.70-6.10) L Hemoglobin 12.4 G/DL (14.2-18.0) L Hematocrit 36.9 % (42.0-52.0) L Mean Corpuscular Volume 98 FL (80-99) Mean Corpuscular Hemoglobin 33.0 PG (27.0-31.0) H Mean Corpuscular Hemoglobin Concent 33.6 G/DL (32.0-36.0) Red Cell Distribution Width 12.6 % (11.6-14.8) Platelet Count 364 K/UL (150-450) Mean Platelet Volume 6.1 FL (6.5-10.1) L Neutrophils (%) (Auto) % (45.0-75.0) Lymphocytes (%) (Auto) % (20.0-45.0) Monocytes (%) (Auto) % (1.0-10.0) Eosinophils (%) (Auto) % (0.0-3.0) Basophils (%) (Auto) % (0.0-2.0) Differential Total Cells Counted 100 Neutrophils % (Manual) 40 % (45-75) L Lymphocytes % (Manual) 10 % (20-45) L Monocytes % (Manual) 8 % (1-10) Eosinophils % (Manual) 41 % (0-3) H Basophils % (Manual) 0 % (0-2) Band Neutrophils 1 % (0-8) Platelet Estimate Adequate Platelet Morphology Normal Red Blood Cell Morphology Normal Sodium Level 138 MMOL/L (136-145) Potassium Level 4.1 MMOL/L (3.5-5.1) Chloride Level 104 MMOL/L (98-107) Carbon Dioxide Level 26 MMOL/L (21-32) Anion Gap 8 mmol/L (5-15) Blood Urea Nitrogen 14 mg/dL (7-18) Creatinine 1.4 MG/DL (0.55-1.30) H Estimat Glomerular Filtration Rate > 60 mL/min (>60) Glucose Level 132 MG/DL (74-106) H Calcium Level 8.4 MG/DL (8.5-10.1) L Total Bilirubin 9.0 MG/DL (0.2-1.0) H Direct Bilirubin 7.5 MG/DL (0.0-0.3) H Aspartate Amino Transf (AST/SGOT) 81 U/L (15-37) H Alanine Aminotransferase (ALT/SGPT) 88 U/L (12-78) H Alkaline Phosphatase 1142 U/L (46-116) H Total Protein 5.8 G/DL (6.4-8.2) L Albumin 2.2 G/DL (3.4-5.0) L Globulin 3.6 g/dL Albumin/Globulin Ratio 0.6 (1.0-2.7) L Height (Feet): 5 Height (Inches): 11.00 Weight (Pounds): 148 General Appearance: WD/WN, no apparent distress, alert Cardiovascular: normal rate Respiratory/Chest: normal breath sounds, no respiratory distress Abdominal Exam: normal bowel sounds, non tender, soft Extremities: normal range of motion, non-tender Bhupendra Barriga QUALITY SYSTEMS ENGINEER May 03, 2018 11:27
--- NOTE | 2018-05-03 12:32 | Infectious Diseases Prog Note ---
Assessment/Plan Assessment/Plan Assessment: Sepsis; improving- likely due to probable acute acalculous cholecystitis Fever , improving ?PNA -CXR: Mildly increased interstitial markings. This is nonspecific and cannot exclude a mild bronchitis or interstitial pneumonitis. No focal consolidation. -wound cx craniotomy incision: MSSA (wound doesnt appaer infected) -bcx NTD -influenza sc neg Mild leukocytosis,SP Elevated LFTs, improving (probably due to both cholecystitis and toxic phenytoin levels) Elev alk and Leno )ALP >> AST, ALT); worsening- Probasble Acute acalculous cholecystitis -HIDA scan: Poor hepatic tracer uptake, no biliary excretion. Findings most likely represents severe hepatocellular disease. Findings are nondiagnostic as regards cystic duct or common bile duct patency -MRCP:No definite gallstones. However, there is gallbladder wall edema and pericholecystic fluid. Could indicate acalculous acute cholecystitis or cholecystitis due to an occult calculus. Alternatively, this could represent reactive changes secondary to adjacent hepatocellular inflammation. Consider hepatobiliary nuclear scan if there is high clinical suspicion for acute cholecystitis. Negative for biliary ductal dilatation. Periportal edema. This can be seen acute hepatitis or right heart failure, among other possibilities -Abd US: No acute findings. 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 Please correlate with the surgical history. Some enhancement of the dura along the anterior interhemispheric fissure and within the surgical bed is not unexpected given the recent surgery. However, the possibility of residual neoplasm is not excludable. There are no reference studies to compare to the preoperative MRI available. Other notable postsurgical finding includes a small fluid collection within the surgical bed deep to the bifrontal craniotomy flap and mild edema within the frontal lobes -CT brain wo: Postsurgical changes associated with relatively recent bifrontal craniotomy likely resection of a mass in the area of the interhemispheric fissure. 6 mm thick mixed attenuation extra-axial blood noted within the surgical bed. Please correlate with the operative report and comparison with prior studies is strongly recommended. -ESR 42, CRP 16.2 -HIV ag/ab neg MICHELLE (supratherapuetic vanco levels) Recent Brain tumor removal (1 month ago) seizure disorder GERD Tobacco use Drug rash-?culprit (present before antibiotics) Plan: -Continue Meropenem #3 (abx d#8) given ongoing fevers and leukocytosis and for probable acute acalculous cholecystitis -/ SP IV Vancomycin #7 -3/ SP Cefepime #6 -Will hold on LP for now as an alternative source of sepsis is considered -f/u cx -Monitor CBC/CMP, temperatures -GI, Sx f/u: consider Cholecystostomy given rising ALP and Tbili -Nuero fu: holding Phenytoin (toxic levels; also probable drug induced hypersensitize syndrome as had rash, eosinophilia and hepatoxicity) Discussed with RN, Dr Parada, and Dr Donnelly Subjective Allergies: Coded Allergies: GADOBUTROL (Verified Allergy, Intermediate, 04/30/18) Uncoded Allergies: CONTRAST (Allergy, Mild, Rash, 04/26/18) Subjective afebrile> 48hrs no leukocytosis Bcx NTD Objective Vital Signs Last 24 Hour Vital Signs Date Time Temp Pulse Resp B/P (MAP) Pulse Ox O2 Delivery O2 Flow Rate FiO2 05/03/18 09:00 Room Air 05/03/18 08:00 97.0 108 18 146/84 (104) 97 05/03/18 05:32 124/85 05/03/18 04:00 97.9 95 20 124/85 (98) 96 05/03/18 00:00 98.1 99 22 114/64 (81) 96 05/02/18 21:53 139/73 05/02/18 21:00 Room Air 05/02/18 20:00 98.2 101 22 139/73 (95) 95 05/02/18 16:00 99.3 104 24 121/74 (90) 97 05/02/18 14:00 117/61 Height (Feet): 5 Height (Inches): 11.00 Weight (Pounds): 148 Objective HEAD: craniotomy scar with some superficial ulceration on R left side- no signs of infection GENERAL: Anxious in bed, oriented x2, in no acute distress. CARDIOVASCULAR: No murmur. LUNGS: Distant and clear. ABDOMEN: Bowel sounds positive. Nontender. Nondistended. EXTREMITIES: No cyanosis, clubbing, or edema. NEUROLOGIC: The patient moves all extremities. Slight weakness in extremities. Skin: maculopapular rash in torso, arms Laboratory Tests Test 05/02/18 15:40 05/03/18 06:15 Phenytoin (Dilantin) Level 40.0 ug/mL (10-20) *H 41.7 ug/mL (10-20) *H Free Phenytoin Level Pending White Blood Count 10.2 K/UL (4.8-10.8) Red Blood Count 3.76 M/UL (4.70-6.10) L Hemoglobin 12.4 G/DL (14.2-18.0) L Hematocrit 36.9 % (42.0-52.0) L Mean Corpuscular Volume 98 FL (80-99) Mean Corpuscular Hemoglobin 33.0 PG (27.0-31.0) H Mean Corpuscular Hemoglobin Concent 33.6 G/DL (32.0-36.0) Red Cell Distribution Width 12.6 % (11.6-14.8) Platelet Count 364 K/UL (150-450) Mean Platelet Volume 6.1 FL (6.5-10.1) L Neutrophils (%) (Auto) % (45.0-75.0) Lymphocytes (%) (Auto) % (20.0-45.0) Monocytes (%) (Auto) % (1.0-10.0) Eosinophils (%) (Auto) % (0.0-3.0) Basophils (%) (Auto) % (0.0-2.0) Differential Total Cells Counted 100 Neutrophils % (Manual) 40 % (45-75) L Lymphocytes % (Manual) 10 % (20-45) L Monocytes % (Manual) 8 % (1-10) Eosinophils % (Manual) 41 % (0-3) H Basophils % (Manual) 0 % (0-2) Band Neutrophils 1 % (0-8) Platelet Estimate Adequate Platelet Morphology Normal Red Blood Cell Morphology Normal Sodium Level 138 MMOL/L (136-145) Potassium Level 4.1 MMOL/L (3.5-5.1) Chloride Level 104 MMOL/L (98-107) Carbon Dioxide Level 26 MMOL/L (21-32) Anion Gap 8 mmol/L (5-15) Blood Urea Nitrogen 14 mg/dL (7-18) Creatinine 1.4 MG/DL (0.55-1.30) H Estimat Glomerular Filtration Rate > 60 mL/min (>60) Glucose Level 132 MG/DL (74-106) H Calcium Level 8.4 MG/DL (8.5-10.1) L Total Bilirubin 9.0 MG/DL (0.2-1.0) H Direct Bilirubin 7.5 MG/DL (0.0-0.3) H Aspartate Amino Transf (AST/SGOT) 81 U/L (15-37) H Alanine Aminotransferase (ALT/SGPT) 88 U/L (12-78) H Alkaline Phosphatase 1142 U/L (46-116) H Total Protein 5.8 G/DL (6.4-8.2) L Albumin 2.2 G/DL (3.4-5.0) L Globulin 3.6 g/dL Albumin/Globulin Ratio 0.6 (1.0-2.7) L Current Medications Medications (Trade) Dose Ordered Sig/Obdulia Route PRN Reason Start Time Stop Time Status Last Admin Dose Admin Acetaminophen (Tylenol) 650 mg Q4H PRN ORAL fever 04/24/18 17:15 05/24/18 17:14 04/30/18 18:01 Al Hydroxide/Mg Hydroxide (Mylanta II) 30 ml Q6H PRN ORAL dyspepsia 04/24/18 17:15 05/24/18 17:14 Amlodipine Besylate (Norvasc) 10 mg DAILY ORAL 04/25/18 09:00 05/25/18 08:59 05/02/18 10:31 Dextrose (Dextrose 50%) 25 ml Q30M PRN IV Hypoglycemia 04/24/18 17:15 05/24/18 17:14 Dextrose (Dextrose 50%) 50 ml Q30M PRN IV Hypoglycemia 04/24/18 17:15 05/24/18 17:14 Dextrose/ Electrolytes 1,000 ml @ 100 mls/hr Q10H IV 04/30/18 15:30 05/29/18 15:29 05/03/18 04:08 Diphenhydramine HCl (Benadryl) 25 mg Q6H PRN IVP Itching 04/26/18 16:30 05/26/18 16:29 05/02/18 23:53 Folic Acid (Folate) 1 mg DAILY ORAL 04/25/18 12:00 05/25/18 11:59 05/02/18 10:31 Gabapentin (Neurontin) 300 mg THREE TIMES A DAY ORAL 04/25/18 18:00 05/25/18 17:59 05/02/18 18:38 Heparin Sodium (Porcine) (Heparin 5000 units/ml) 5,000 units EVERY 12 HOURS SUBQ 04/24/18 21:00 05/24/18 20:59 05/02/18 21:55 Hydralazine HCl (Apresoline) 25 mg EVERY 8 HOURS ORAL 04/24/18 22:00 05/24/18 21:59 05/03/18 05:32 Lactulose (Cephulac) 10 gm THREE TIMES A DAY ORAL 04/29/18 13:30 05/29/18 13:29 05/02/18 18:37 Levetiracetam (Keppra) 500 mg EVERY 12 HOURS ORAL 04/24/18 21:00 05/24/18 20:59 05/02/18 21:53 Lorazepam (Ativan 2mg/ml 1ml) 1 mg Q6H PRN IVP For Anxiety 04/27/18 04:15 05/04/18 04:14 05/01/18 05:35 Meropenem 1 gm/ Sodium Chloride 55 ml @ 110 mls/hr Q8HR IVPB 05/01/18 14:00 05/06/18 13:59 05/03/18 05:32 Ondansetron HCl (Zofran) 4 mg Q6H PRN IVP Nausea & Vomiting 04/24/18 17:15 05/24/18 17:14 04/26/18 09:00 Oxycodone/ Acetaminophen (Percocet 5-325) 1 tab Q4H PRN ORAL severe pain 04/27/18 15:30 05/04/18 15:29 05/02/18 21:55 Polyethylene Glycol (Miralax) 17 gm HSPRN PRN ORAL Constipation 04/24/18 17:15 05/24/18 17:14 Rifaximin (Xifaxan) 550 mg EVERY 12 HOURS ORAL 04/30/18 21:00 05/07/18 20:59 05/02/18 21:53 Vancomycin HCl (Vanco rx to dose) 1 ea DAILY PRN MISC Per rx protocol 04/26/18 13:45 05/26/18 13:44 Vancomycin HCl 1.5 gm/Dextrose 275 ml @ 137.5 mls/ hr Q12H IVPB 05/02/18 09:00 05/07/18 08:59 05/03/18 10:53 Kelsie Ibarra M.D. May 03, 2018 12:32
--- NOTE | 2018-05-03 12:56 | NUR ---
BRAIDED RUG MAKERBIOENGINEER SI:DEHYDRATION/ INTRACTABLE PAIN VS: BP 146/84, P 108, T 97.0, RR 22, SpO2 97 RBC 3.76, Hgb 12.4 Hct 36.9, Neutrophils% 40, Lymphocytes 10, CR 1.4, Glucose 132, Ca 8.4 Alk Phos 1142, Total Protien 5.8 IS: Keppra Amlodipine Apresoline Gabapentin Vancomycin Meropenem 110cc/hr Lactulose MED/SURG
--- NOTE | 2018-05-03 14:05 | NUR ---
NURSE NOTES: patient refused to take po medications. explained risks and benefits but still refused. getting only IV medications. no N/V noted.
--- NOTE | 2018-05-03 14:46 | Surgery Progress Note ---
Surgery Progress Note Subjective Additional Comments ast/alt improved. t bili elevated. exam unchanged. labs noted. Objective Last 24 Hour Vital Signs Date Time Temp Pulse Resp B/P (MAP) Pulse Ox O2 Delivery O2 Flow Rate FiO2 05/03/18 12:00 98.0 99 19 150/89 (109) 97 05/03/18 09:00 Room Air 05/03/18 08:00 97.0 108 18 146/84 (104) 97 05/03/18 05:32 124/85 05/03/18 04:00 97.9 95 20 124/85 (98) 96 05/03/18 00:00 98.1 99 22 114/64 (81) 96 05/02/18 21:53 139/73 05/02/18 21:00 Room Air 05/02/18 20:00 98.2 101 22 139/73 (95) 95 05/02/18 16:00 99.3 104 24 121/74 (90) 97 I&O Intake and Output 05/02/18 05/03/18 19:00 07:00 Intake Total 360 ml Output Total 500 ml 850 ml Balance -140 ml -850 ml Intake Oral 360 ml Output Urine Total 500 ml 850 ml # Voids 3 Laboratory Tests Test 05/02/18 15:40 05/03/18 06:15 Phenytoin (Dilantin) Level 40.0 ug/mL (10-20) *H 41.7 ug/mL (10-20) *H Free Phenytoin Level Pending White Blood Count 10.2 K/UL (4.8-10.8) Red Blood Count 3.76 M/UL (4.70-6.10) L Hemoglobin 12.4 G/DL (14.2-18.0) L Hematocrit 36.9 % (42.0-52.0) L Mean Corpuscular Volume 98 FL (80-99) Mean Corpuscular Hemoglobin 33.0 PG (27.0-31.0) H Mean Corpuscular Hemoglobin Concent 33.6 G/DL (32.0-36.0) Red Cell Distribution Width 12.6 % (11.6-14.8) Platelet Count 364 K/UL (150-450) Mean Platelet Volume 6.1 FL (6.5-10.1) L Neutrophils (%) (Auto) % (45.0-75.0) Lymphocytes (%) (Auto) % (20.0-45.0) Monocytes (%) (Auto) % (1.0-10.0) Eosinophils (%) (Auto) % (0.0-3.0) Basophils (%) (Auto) % (0.0-2.0) Differential Total Cells Counted 100 Neutrophils % (Manual) 40 % (45-75) L Lymphocytes % (Manual) 10 % (20-45) L Monocytes % (Manual) 8 % (1-10) Eosinophils % (Manual) 41 % (0-3) H Basophils % (Manual) 0 % (0-2) Band Neutrophils 1 % (0-8) Platelet Estimate Adequate Platelet Morphology Normal Red Blood Cell Morphology Normal Sodium Level 138 MMOL/L (136-145) Potassium Level 4.1 MMOL/L (3.5-5.1) Chloride Level 104 MMOL/L (98-107) Carbon Dioxide Level 26 MMOL/L (21-32) Anion Gap 8 mmol/L (5-15) Blood Urea Nitrogen 14 mg/dL (7-18) Creatinine 1.4 MG/DL (0.55-1.30) H Estimat Glomerular Filtration Rate > 60 mL/min (>60) Glucose Level 132 MG/DL (74-106) H Calcium Level 8.4 MG/DL (8.5-10.1) L Total Bilirubin 9.0 MG/DL (0.2-1.0) H Direct Bilirubin 7.5 MG/DL (0.0-0.3) H Aspartate Amino Transf (AST/SGOT) 81 U/L (15-37) H Alanine Aminotransferase (ALT/SGPT) 88 U/L (12-78) H Alkaline Phosphatase 1142 U/L (46-116) H Total Protein 5.8 G/DL (6.4-8.2) L Albumin 2.2 G/DL (3.4-5.0) L Globulin 3.6 g/dL Albumin/Globulin Ratio 0.6 (1.0-2.7) L Plan Problems: (1) Transaminitis Assessment & Plan: reviewed chart discussed with GI likely due to drug toxicity. (2) Elevated alkaline phosphatase level (3) Intractable pain Assessment & Plan: US noted MRI noted HIDA noted possible acute acalculous cholecystitis. exam difficult given history labs with resolved leukocytosis lft's abnormal from drug toxicity trend labs okay for diet will follow clinically (4) Sepsis Jamin Lynch May 03, 2018 14:46
--- NOTE | 2018-05-03 15:15 | General Progress Note ---
Assessment/Plan Problem List: (1) Head ache ICD Codes: R51 - Headache SNOMED: 41267148 (2) Weak ICD Codes: R53.1 - Weakness SNOMED: 01789569 (3) HTN (hypertension) ICD Codes: I10 - Essential (primary) hypertension SNOMED: 86339643 (4) Malnutrition ICD Codes: E46 - Unspecified protein-calorie malnutrition SNOMED: 89346566 (5) Epilepsy ICD Codes: G40.909 - Epilepsy, unspecified, not intractable, without status epilepticus SNOMED: 14209411 (6) Intractable pain ICD Codes: R52 - Pain, unspecified SNOMED: 95976473 (7) Phenytoin toxicity ICD Codes: T42.0X1A - Poisoning by hydantoin derivatives, accidental ( unintentional), initial encounter SNOMED: 38263907 Status: unchanged Assessment/Plan pt diet pain control neuro psyc eval abx prn cbc bmp am dc plan if clear Subjective Constitutional: Reports: weakness Allergies: Coded Allergies: GADOBUTROL (Verified Allergy, Intermediate, 04/30/18) PHENYTOIN (Verified Allergy, Unknown, 05/03/18) Drug hypersensitivity syndrome; hepatotoxicity Uncoded Allergies: CONTRAST (Allergy, Mild, Rash, 05/03/18) questionable if it was due to contrast; patient at the time (Mar-April 2018) also had dilantin reaction (probably rash was due to dilantin) All Systems: reviewed and negative except above Subjective sleepy c/o some head ache Objective Last 24 Hour Vital Signs Date Time Temp Pulse Resp B/P (MAP) Pulse Ox O2 Delivery O2 Flow Rate FiO2 05/03/18 12:00 98.0 99 19 150/89 (109) 97 05/03/18 09:00 Room Air 05/03/18 08:00 97.0 108 18 146/84 (104) 97 05/03/18 05:32 124/85 05/03/18 04:00 97.9 95 20 124/85 (98) 96 05/03/18 00:00 98.1 99 22 114/64 (81) 96 05/02/18 21:53 139/73 05/02/18 21:00 Room Air 05/02/18 20:00 98.2 101 22 139/73 (95) 95 05/02/18 16:00 99.3 104 24 121/74 (90) 97 Intake and Output 05/02/18 05/03/18 18:59 06:59 Intake Total 360 ml Output Total 500 ml 850 ml Balance -140 ml -850 ml Intake Oral 360 ml Output Urine Total 500 ml 850 ml # Voids 3 Laboratory Tests 05/02/18 15:40: Phenytoin (Dilantin) Level 40.0*H, Free Phenytoin Level [Pending] 05/03/18 06:15: Phenytoin (Dilantin) Level 41.7*H, White Blood Count 10.2, Red Blood Count 3.76L , Hemoglobin 12.4L, Hematocrit 36.9L, Mean Corpuscular Volume 98, Mean Corpuscular Hemoglobin 33.0H, Mean Corpuscular Hemoglobin Concent 33.6, Red Cell Distribution Width 12.6, Platelet Count 364, Mean Platelet Volume 6.1L, Neutrophils (%) (Auto) , Lymphocytes (%) (Auto) , Monocytes (%) (Auto) , Eosinophils (%) (Auto) , Basophils (%) (Auto) , Differential Total Cells Counted 100, Neutrophils % (Manual) 40L, Lymphocytes % (Manual) 10L, Monocytes % (Manual) 8, Eosinophils % (Manual) 41H, Basophils % (Manual) 0, Band Neutrophils 1, Platelet Estimate Adequate, Platelet Morphology Normal, Red Blood Cell Morphology Normal, Sodium Level 138, Potassium Level 4.1, Chloride Level 104, Carbon Dioxide Level 26, Anion Gap 8, Blood Urea Nitrogen 14, Creatinine 1.4H, Estimat Glomerular Filtration Rate > 60, Glucose Level 132H, Calcium Level 8.4L, Total Bilirubin 9.0H, Direct Bilirubin 7.5H, Aspartate Amino Transf (AST/SGOT) 81H, Alanine Aminotransferase (ALT/SGPT) 88H, Alkaline Phosphatase 1142H, Total Protein 5.8L, Albumin 2.2L, Globulin 3.6, Albumin/ Globulin Ratio 0.6L Height (Feet): 5 Height (Inches): 11.00 Weight (Pounds): 148 General Appearance: lethargic EENT: normal ENT inspection Neck: normal alignment Cardiovascular: normal peripheral pulses, normal rate, regular rhythm Respiratory/Chest: chest wall non-tender, lungs clear, normal breath sounds Abdomen: normal bowel sounds, non tender, soft Extremities: normal inspection Edema: no edema noted Arm (L), no edema noted Arm (R), no edema noted Leg (L), no edema noted Leg (R), no edema noted Pedal (L), no edema noted Pedal (R), no edema noted Generalized Neurologic: motor weakness Skin: normal pigmentation, warm/dry Neri Cat DO May 03, 2018 15:15
--- NOTE | 2018-05-03 16:54 | NUR ---
INSURANCE REVIEWS FAXED TO NO REFRIGERATION PERSON ASSIGNED AT THIS TIME P- [phone] F- [phone]
--- NOTE | 2018-05-03 19:51 | NUR ---
HAND-OFF: Report given to BELEN Garcia.
--- NOTE | 2018-05-03 20:09 | NUR ---
NURSE NOTES: Received patient comfortably sleeping,calm,sitter at bedside.
--- NOTE | 2018-05-03 20:57 | NUR ---
NURSE NOTES: Spoke with Pharmacist Anabelle regarding patient refusal of blood draw for vanco trough tonight at 2100,Anabelle said goahead and give the dose for tonight.
[2018-05-03] MEDS: Vancomycin 1.5gm Premix IVPB SCH (21:02)
[2018-05-04 00:08] VITALS: BP 124/71
[2018-05-04 04:09] VITALS: BP 131/66
[2018-05-04] MEDS: Meropenem 1 GM in NS 55 ML IVPB SCH ×3 (05:00→21:26)
[2018-05-04] MEDS: HydrALAZINE 25mg tab ORAL SCH ×3 (05:50→21:23)
--- NOTE | 2018-05-04 07:00 | NUR ---
HAND-OFF: Report given to Art Guallpa RN[].
--- NOTE | 2018-05-04 07:07 | NUR ---
NURSE NOTES: received report from BELEN Garcia. patient in bed. sleeping. no respiratory distress noted. sitter at bedside. IV running. condom cath in place. draining well. bed in the lowest position. call light within reach. will continue to monitor.
[2018-05-04 08:00] VITALS: BP 132/70
[2018-05-04] MEDS: Lactulose 10gm/15ml UDC ORAL SCH ×3 (09:00→17:36)
[2018-05-04 09:26] LABS: HEMATOCRIT 31.1 % (42.0-52.0); HEMOGLOBIN 10.5 G/DL (14.2-18.0); MEAN CORPUSCULAR VOLUME 97 FL (80-99); PLATELET COUNT 377 K/UL (150-450); RED CELL DISTRIBUTION WIDTH 12.5 % (11.6-14.8); WHITE BLOOD COUNT 10.9 K/UL (4.8-10.8)
[2018-05-04 09:27] LABS: AMMONIA 45 umol/L (11-32)
[2018-05-04] MEDS: Vancomycin 1.5gm Premix IVPB SCH (09:27)
[2018-05-04 09:28] LABS: ALANINE AMINOTRANSFERASE 74 U/L (12-78); ALBUMIN 1.9 G/DL (3.4-5.0); ALBUMIN/GLOBULIN RATIO 0.6 (1.0-2.7); ALKALINE PHOSPHATASE 1061 U/L (46-116); ANION GAP 6 mmol/L (5-15); ASPARTATE AMINO TRANSFERASE 77 U/L (15-37); BILIRUBIN,TOTAL 8.9 MG/DL (0.2-1.0); BLOOD UREA NITROGEN 11 mg/dL (7-18); CALCIUM 7.9 MG/DL (8.5-10.1); CARBON DIOXIDE 26 MMOL/L (21-32); CHLORIDE 104 MMOL/L (98-107); CREATININE 1.3 MG/DL (0.55-1.30); POTASSIUM 4.1 MMOL/L (3.5-5.1); SODIUM 135 MMOL/L (136-145)
[2018-05-04] MEDS: Heparin 5000 units/ml inj SUBQ SCH ×2 (09:39→21:25)
[2018-05-04 10:11] LABS: BILIRUBIN,DIRECT 7.8 MG/DL (0.0-0.3)
--- NOTE | 2018-05-04 10:34 | NUR ---
NURSE NOTES: patient refused all po medications d/t nausea. administer Zofran PRN as ordered/
--- NOTE | 2018-05-04 10:40 | NUR ---
PT NOTE Attempted to see patient for PT treatment. Patient declining to participate with PT treatment at this time, c/o headache. Art GLOVER notified, will follow up tomorrow.
--- NOTE | 2018-05-04 11:16 | GI Progress Note ---
Assessment/Plan Problems: (1) Weak ICD Codes: R53.1 - Weakness SNOMED: 23813374 (2) Malnutrition ICD Codes: E46 - Unspecified protein-calorie malnutrition SNOMED: 60827086 (3) Brain tumor ICD Codes: D49.6 - Neoplasm of unspecified behavior of brain SNOMED: 323921062 (4) Transaminitis ICD Codes: R74.0 - Nonspecific elevation of levels of transaminase and lactic acid dehydrogenase [LDH] SNOMED: 674669793, 687458639 (5) Anemia ICD Codes: D64.9 - Anemia, unspecified SNOMED: 878161911 (6) Intractable pain ICD Codes: R52 - Pain, unspecified SNOMED: 58900394 (7) Phenytoin toxicity ICD Codes: T42.0X1A - Poisoning by hydantoin derivatives, accidental ( unintentional), initial encounter SNOMED: 54382959 Status: unchanged Status Narrative Discussed with Dr. Kimball Assessment/Plan Head CT reviewed lipase normal abdominal US reviewed, negative follow Hepatitis panel, negative MRCP reviewed, negative for common bile duct dilation. Possible cholecystitis. AMA and SMA negative Phenytoin toxicity >> DC Dilantin possible EUS tomorrow OB stool r/o GI bleed monitor H&H, prn transfusions bowel regime ppi lactulose + xifaxan repeat ammonia level in am Outpatient GI procedures The patient was seen and examined at bedside and all new and available data was reviewed in the patients chart. I agree with the above findings, impression and plan. (Patient seen earlier today. Signature stamp does not reflect patient encounter time.). - Barry Kimball MD Subjective Subjective REES nausea vomiting Objective Last 24 Hour Vital Signs Date Time Temp Pulse Resp B/P (MAP) Pulse Ox O2 Delivery O2 Flow Rate FiO2 05/04/18 08:00 98.0 89 19 132/70 (90) 98 05/04/18 04:09 97.9 92 19 131/66 (87) 97 05/04/18 00:08 96.6 86 18 124/71 (88) 98 05/03/18 21:00 Room Air 05/03/18 20:26 97.4 99 18 129/78 (95) 96 05/03/18 17:47 98.9 98 21 126/75 (92) 99 05/03/18 16:00 98.9 98 21 126/75 (92) 99 05/03/18 12:00 98.0 99 19 150/89 (109) 97 Intake and Output 05/03/18 05/04/18 19:00 07:00 Intake Total 220 ml 1405.0 ml Output Total 1000 ml 1000 ml Balance -780 ml 405.0 ml Intake Oral 100 ml IV Total 120 ml 1405.0 ml Output Urine Total 1000 ml 1000 ml Laboratory Tests Test 05/04/18 08:30 White Blood Count 10.9 K/UL (4.8-10.8) H Red Blood Count 3.20 M/UL (4.70-6.10) L Hemoglobin 10.5 G/DL (14.2-18.0) L Hematocrit 31.1 % (42.0-52.0) L Mean Corpuscular Volume 97 FL (80-99) Mean Corpuscular Hemoglobin 32.7 PG (27.0-31.0) H Mean Corpuscular Hemoglobin Concent 33.7 G/DL (32.0-36.0) Red Cell Distribution Width 12.5 % (11.6-14.8) Platelet Count 377 K/UL (150-450) Mean Platelet Volume 6.2 FL (6.5-10.1) L Neutrophils (%) (Auto) % (45.0-75.0) Lymphocytes (%) (Auto) % (20.0-45.0) Monocytes (%) (Auto) % (1.0-10.0) Eosinophils (%) (Auto) % (0.0-3.0) Basophils (%) (Auto) % (0.0-2.0) Differential Total Cells Counted 100 Neutrophils % (Manual) 38 % (45-75) L Lymphocytes % (Manual) 4 % (20-45) L Monocytes % (Manual) 16 % (1-10) H Eosinophils % (Manual) 42 % (0-3) H Basophils % (Manual) 0 % (0-2) Band Neutrophils 0 % (0-8) Platelet Estimate Adequate Platelet Morphology Normal Hypochromasia 1+ Sodium Level 135 MMOL/L (136-145) L Potassium Level 4.1 MMOL/L (3.5-5.1) Chloride Level 104 MMOL/L (98-107) Carbon Dioxide Level 26 MMOL/L (21-32) Anion Gap 6 mmol/L (5-15) Blood Urea Nitrogen 11 mg/dL (7-18) Creatinine 1.3 MG/DL (0.55-1.30) Estimat Glomerular Filtration Rate > 60 mL/min (>60) Glucose Level 139 MG/DL (74-106) H Calcium Level 7.9 MG/DL (8.5-10.1) L Total Bilirubin 8.9 MG/DL (0.2-1.0) H Direct Bilirubin 7.8 MG/DL (0.0-0.3) H Aspartate Amino Transf (AST/SGOT) 77 U/L (15-37) H Alanine Aminotransferase (ALT/SGPT) 74 U/L (12-78) Alkaline Phosphatase 1061 U/L (46-116) H Ammonia 45 umol/L (11-32) H Total Protein 5.0 G/DL (6.4-8.2) L Albumin 1.9 G/DL (3.4-5.0) L Globulin 3.1 g/dL Albumin/Globulin Ratio 0.6 (1.0-2.7) L Vancomycin Level Trough 25.4 ug/mL (5.0-12.0) H Height (Feet): 5 Height (Inches): 11.00 Weight (Pounds): 148 General Appearance: WD/WN, no apparent distress, alert Cardiovascular: normal rate Respiratory/Chest: normal breath sounds, no respiratory distress Abdominal Exam: normal bowel sounds, non tender, soft Extremities: normal range of motion, non-tender Bhupendra Barriga NP May 04, 2018 11:16
[2018-05-04 12:00] VITALS: BP 131/83
--- NOTE | 2018-05-04 13:12 | Nephrology Progress Note ---
Assessment/Plan Assessment 1. Hypovolemic hyponatremia 2. Dilantin toxicity 3. History of brain tumor, status post craniotomy. 4. History of seizure. Plan due to high protein binding effect of Dilantin and medication formula its not dialyzable ( case also was discussed with poison control ) increase ivf monitoring renal function avoid NSAID Mix all ivpb with NS.9 Subjective Constitutional: Reports: no symptoms HEENT: Reports: no symptoms Genitourinary: Reports: no symptoms Neurologic/Psychiatric: Reports: no symptoms Subjective more responsive Objective Objective Last 24 Hour Vital Signs Date Time Temp Pulse Resp B/P (MAP) Pulse Ox O2 Delivery O2 Flow Rate FiO2 05/04/18 09:00 Room Air 05/04/18 08:00 98.0 89 19 132/70 (90) 98 05/04/18 04:09 97.9 92 19 131/66 (87) 97 05/04/18 00:08 96.6 86 18 124/71 (88) 98 05/03/18 21:00 Room Air 05/03/18 20:26 97.4 99 18 129/78 (95) 96 05/03/18 17:47 98.9 98 21 126/75 (92) 99 05/03/18 16:00 98.9 98 21 126/75 (92) 99 Intake and Output 05/03/18 05/04/18 19:00 07:00 Intake Total 220 ml 1405.0 ml Output Total 1000 ml 1000 ml Balance -780 ml 405.0 ml Intake Oral 100 ml IV Total 120 ml 1405.0 ml Output Urine Total 1000 ml 1000 ml Laboratory Tests 05/04/18 08:30: White Blood Count 10.9H, Red Blood Count 3.20L, Hemoglobin 10.5L, Hematocrit 31.1L, Mean Corpuscular Volume 97, Mean Corpuscular Hemoglobin 32.7H, Mean Corpuscular Hemoglobin Concent 33.7, Red Cell Distribution Width 12.5, Platelet Count 377, Mean Platelet Volume 6.2L, Neutrophils (%) (Auto) , Lymphocytes (%) ( Auto) , Monocytes (%) (Auto) , Eosinophils (%) (Auto) , Basophils (%) (Auto) , Differential Total Cells Counted 100, Neutrophils % (Manual) 38L, Lymphocytes % (Manual) 4L, Monocytes % (Manual) 16H, Eosinophils % (Manual) 42H, Basophils % ( Manual) 0, Band Neutrophils 0, Platelet Estimate Adequate, Platelet Morphology Normal, Hypochromasia 1+, Sodium Level 135L, Potassium Level 4.1, Chloride Level 104, Carbon Dioxide Level 26, Anion Gap 6, Blood Urea Nitrogen 11, Creatinine 1.3, Estimat Glomerular Filtration Rate > 60, Glucose Level 139H, Calcium Level 7.9L, Total Bilirubin 8.9H, Direct Bilirubin 7.8H, Aspartate Amino Transf (AST/SGOT) 77H, Alanine Aminotransferase (ALT/SGPT) 74, Alkaline Phosphatase 1061H, Ammonia 45H, Total Protein 5.0L, Albumin 1.9L, Globulin 3.1, Albumin/Globulin Ratio 0.6L, Vancomycin Level Trough 25.4H Height (Feet): 5 Height (Inches): 11.00 Weight (Pounds): 148 Objective HEAD AND NECK: He has scar from the craniotomy. No LAD. Extraocular movement intact. Pupils are reactive to light and accommodation. LUNGS: Clear to auscultation. CARDIAC: Regular rate and rhythm. S1 and S2. No murmur. No rub. ABDOMEN: Soft, nontender, and nondistended. EXTREMITIES: No edema. No clubbing. No cyanosis. Marielena Romero MD May 04, 2018 13:12
--- NOTE | 2018-05-04 13:12 | NUR ---
RD ASSESSMENT & RECOMMENDATIONS SEE CARE ACTIVITY FOR COMPLETE ASSESSMENT DAILY ESTIMATED NEEDS: Needs based on Underweight, hepatic, wound 66kg 25-35 kcals/kg 9175-6495 total kcals 1.25-1.5 g protein/kg 83-99 g total protein 25-30 mL/kg 4629-8465 total fluid mLs NUTRITION DIAGNOSIS: 1) Increased kcal and protein needs r/t low weight and wound healing as evidenced by pt is 84% of ideal body weight, w. poor po intake, w/ partial thickness anterior head injury. 2) Altered nutrition related lab values r/t clinical status, transaminitis as evidenced by elev T bili (8.9 trend up) w/ elev LFT's, elev NH3 (45). CURRENT DIET: Regular PO DIET RECOMMENDATIONS: LIBERAL REGULAR DIET W/ CURRENT POOR PO INTAKE ADDITIONAL RECOMMENDATIONS: 1) H/o seizures and brain tumor-- rec [employer] eval for appropriate texture 2) Add ENSURE 1 bottle TID w/ meals 3) Wound care: ROGELIO BID + MVI + VIT C 250mg daily 4) Snacks in b/w meals, encourage po intake 5) Obtain a calibrated bed scale wt as able 6) Consider appetite stimulantif medically appropriat- consistently poor PO 7) Routine BM regimen/ monitor BM regularity
--- NOTE | 2018-05-04 13:44 | General Progress Note ---
Assessment/Plan Problem List: (1) Head ache ICD Codes: R51 - Headache SNOMED: 44005368 (2) Weak ICD Codes: R53.1 - Weakness SNOMED: 61393761 (3) HTN (hypertension) ICD Codes: I10 - Essential (primary) hypertension SNOMED: 81206568 (4) Malnutrition ICD Codes: E46 - Unspecified protein-calorie malnutrition SNOMED: 06461978 (5) Epilepsy ICD Codes: G40.909 - Epilepsy, unspecified, not intractable, without status epilepticus SNOMED: 40691659 (6) Intractable pain ICD Codes: R52 - Pain, unspecified SNOMED: 34239529 (7) Phenytoin toxicity ICD Codes: T42.0X1A - Poisoning by hydantoin derivatives, accidental ( unintentional), initial encounter SNOMED: 27988014 Status: unchanged Assessment/Plan pt diet pain control neuro psyc eval abx prn cbc bmp am dc plan if clear Subjective Constitutional: Reports: weakness Allergies: Coded Allergies: GADOBUTROL (Verified Allergy, Intermediate, 04/30/18) PHENYTOIN (Verified Allergy, Unknown, 05/03/18) Drug hypersensitivity syndrome; hepatotoxicity Uncoded Allergies: CONTRAST (Allergy, Mild, Rash, 05/03/18) questionable if it was due to contrast; patient at the time (Mar-April 2018) also had dilantin reaction (probably rash was due to dilantin) Subjective sleepy c/o some head ache Objective Last 24 Hour Vital Signs Date Time Temp Pulse Resp B/P (MAP) Pulse Ox O2 Delivery O2 Flow Rate FiO2 05/04/18 09:00 Room Air 05/04/18 08:00 98.0 89 19 132/70 (90) 98 05/04/18 04:09 97.9 92 19 131/66 (87) 97 05/04/18 00:08 96.6 86 18 124/71 (88) 98 05/03/18 21:00 Room Air 05/03/18 20:26 97.4 99 18 129/78 (95) 96 05/03/18 17:47 98.9 98 21 126/75 (92) 99 05/03/18 16:00 98.9 98 21 126/75 (92) 99 Intake and Output 05/03/18 05/04/18 19:00 07:00 Intake Total 220 ml 1405.0 ml Output Total 1000 ml 1000 ml Balance -780 ml 405.0 ml Intake Oral 100 ml IV Total 120 ml 1405.0 ml Output Urine Total 1000 ml 1000 ml Laboratory Tests 05/04/18 08:30: White Blood Count 10.9H, Red Blood Count 3.20L, Hemoglobin 10.5L, Hematocrit 31.1L, Mean Corpuscular Volume 97, Mean Corpuscular Hemoglobin 32.7H, Mean Corpuscular Hemoglobin Concent 33.7, Red Cell Distribution Width 12.5, Platelet Count 377, Mean Platelet Volume 6.2L, Neutrophils (%) (Auto) , Lymphocytes (%) ( Auto) , Monocytes (%) (Auto) , Eosinophils (%) (Auto) , Basophils (%) (Auto) , Differential Total Cells Counted 100, Neutrophils % (Manual) 38L, Lymphocytes % (Manual) 4L, Monocytes % (Manual) 16H, Eosinophils % (Manual) 42H, Basophils % ( Manual) 0, Band Neutrophils 0, Platelet Estimate Adequate, Platelet Morphology Normal, Hypochromasia 1+, Sodium Level 135L, Potassium Level 4.1, Chloride Level 104, Carbon Dioxide Level 26, Anion Gap 6, Blood Urea Nitrogen 11, Creatinine 1.3, Estimat Glomerular Filtration Rate > 60, Glucose Level 139H, Calcium Level 7.9L, Total Bilirubin 8.9H, Direct Bilirubin 7.8H, Aspartate Amino Transf (AST/SGOT) 77H, Alanine Aminotransferase (ALT/SGPT) 74, Alkaline Phosphatase 1061H, Ammonia 45H, Total Protein 5.0L, Albumin 1.9L, Globulin 3.1, Albumin/Globulin Ratio 0.6L, Vancomycin Level Trough 25.4H Height (Feet): 5 Height (Inches): 11.00 Weight (Pounds): 148 General Appearance: lethargic EENT: normal ENT inspection Neck: normal alignment Cardiovascular: normal peripheral pulses, normal rate, regular rhythm Respiratory/Chest: chest wall non-tender, lungs clear, normal breath sounds Abdomen: normal bowel sounds, non tender, soft Extremities: normal inspection Edema: no edema noted Arm (L), no edema noted Arm (R), no edema noted Leg (L), no edema noted Leg (R), no edema noted Pedal (L), no edema noted Pedal (R), no edema noted Generalized Neurologic: motor weakness Skin: normal pigmentation, warm/dry Neri Cat DO May 04, 2018 13:44
--- NOTE | 2018-05-04 13:45 | Infectious Diseases Prog Note ---
Assessment/Plan Assessment/Plan Assessment: Sepsis; improving- likely due to probable acute acalculous cholecystitis Fever , SP ?PNA -CXR: Mildly increased interstitial markings. This is nonspecific and cannot exclude a mild bronchitis or interstitial pneumonitis. No focal consolidation. -wound cx craniotomy incision: MSSA (wound doesnt appaer infected) -bcx NTD -influenza sc neg Mild leukocytosis,SP Elevated LFTs, improving (probably due to both cholecystitis and toxic phenytoin levels); resolving Elev alk and Leno )ALP >> AST, ALT); worsened, now improving- Probasble Acute acalculous cholecystitis -HIDA scan: Poor hepatic tracer uptake, no biliary excretion. Findings most likely represents severe hepatocellular disease. Findings are nondiagnostic as regards cystic duct or common bile duct patency -MRCP:No definite gallstones. However, there is gallbladder wall edema and pericholecystic fluid. Could indicate acalculous acute cholecystitis or cholecystitis due to an occult calculus. Alternatively, this could represent reactive changes secondary to adjacent hepatocellular inflammation. Consider hepatobiliary nuclear scan if there is high clinical suspicion for acute cholecystitis. Negative for biliary ductal dilatation. Periportal edema. This can be seen acute hepatitis or right heart failure, among other possibilities -Abd US: No acute findings. 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 Please correlate with the surgical history. Some enhancement of the dura along the anterior interhemispheric fissure and within the surgical bed is not unexpected given the recent surgery. However, the possibility of residual neoplasm is not excludable. There are no reference studies to compare to the preoperative MRI available. Other notable postsurgical finding includes a small fluid collection within the surgical bed deep to the bifrontal craniotomy flap and mild edema within the frontal lobes -CT brain wo: Postsurgical changes associated with relatively recent bifrontal craniotomy likely resection of a mass in the area of the interhemispheric fissure. 6 mm thick mixed attenuation extra-axial blood noted within the surgical bed. Please correlate with the operative report and comparison with prior studies is strongly recommended. -ESR 42, CRP 16.2 -HIV ag/ab neg MICHELLE (supratherapuetic vanco levels) Recent Brain tumor removal (1 month ago) seizure disorder GERD Tobacco use Drug rash-?culprit (present before antibiotics) Plan: -Continue Meropenem #4 (abx d#/) given ongoing fevers and leukocytosis and for probable acute acalculous cholecystitis -3/ SP IV Vancomycin #7 -3/ SP Cefepime #6 -Will hold on LP for now as an alternative source of sepsis is considered -f/u cx -Monitor CBC/CMP, temperatures -GI, Sx f/u: -Nuero fu: holding Phenytoin (toxic levels; also probable drug induced hypersensitize syndrome as had rash, eosinophilia and hepatoxicity) Discussed with RN Subjective Allergies: Coded Allergies: GADOBUTROL (Verified Allergy, Intermediate, 04/30/18) PHENYTOIN (Verified Allergy, Unknown, 05/03/18) Drug hypersensitivity syndrome; hepatotoxicity Uncoded Allergies: CONTRAST (Allergy, Mild, Rash, 05/03/18) questionable if it was due to contrast; patient at the time (Mar-April 2018) also had dilantin reaction (probably rash was due to dilantin) Subjective afebrile> 72 hrs very mild leukocytosis Bcx NTD ALP and Tbili slightly improved today AST and ALT resolving Objective Vital Signs Last 24 Hour Vital Signs Date Time Temp Pulse Resp B/P (MAP) Pulse Ox O2 Delivery O2 Flow Rate FiO2 05/04/18 09:00 Room Air 05/04/18 08:00 98.0 89 19 132/70 (90) 98 05/04/18 04:09 97.9 92 19 131/66 (87) 97 05/04/18 00:08 96.6 86 18 124/71 (88) 98 05/03/18 21:00 Room Air 05/03/18 20:26 97.4 99 18 129/78 (95) 96 05/03/18 17:47 98.9 98 21 126/75 (92) 99 05/03/18 16:00 98.9 98 21 126/75 (92) 99 Height (Feet): 5 Height (Inches): 11.00 Weight (Pounds): 148 Objective HEAD: craniotomy scar with some superficial ulceration on R left side- no signs of infection GENERAL: Anxious in bed, oriented x2, in no acute distress. CARDIOVASCULAR: No murmur. LUNGS: Distant and clear. ABDOMEN: Bowel sounds positive. Nontender. Nondistended. EXTREMITIES: No cyanosis, clubbing, or edema. NEUROLOGIC: The patient moves all extremities. Slight weakness in extremities. Skin: maculopapular rash in torso, arms Laboratory Tests Test 05/04/18 08:30 White Blood Count 10.9 K/UL (4.8-10.8) H Red Blood Count 3.20 M/UL (4.70-6.10) L Hemoglobin 10.5 G/DL (14.2-18.0) L Hematocrit 31.1 % (42.0-52.0) L Mean Corpuscular Volume 97 FL (80-99) Mean Corpuscular Hemoglobin 32.7 PG (27.0-31.0) H Mean Corpuscular Hemoglobin Concent 33.7 G/DL (32.0-36.0) Red Cell Distribution Width 12.5 % (11.6-14.8) Platelet Count 377 K/UL (150-450) Mean Platelet Volume 6.2 FL (6.5-10.1) L Neutrophils (%) (Auto) % (45.0-75.0) Lymphocytes (%) (Auto) % (20.0-45.0) Monocytes (%) (Auto) % (1.0-10.0) Eosinophils (%) (Auto) % (0.0-3.0) Basophils (%) (Auto) % (0.0-2.0) Differential Total Cells Counted 100 Neutrophils % (Manual) 38 % (45-75) L Lymphocytes % (Manual) 4 % (20-45) L Monocytes % (Manual) 16 % (1-10) H Eosinophils % (Manual) 42 % (0-3) H Basophils % (Manual) 0 % (0-2) Band Neutrophils 0 % (0-8) Platelet Estimate Adequate Platelet Morphology Normal Hypochromasia 1+ Sodium Level 135 MMOL/L (136-145) L Potassium Level 4.1 MMOL/L (3.5-5.1) Chloride Level 104 MMOL/L (98-107) Carbon Dioxide Level 26 MMOL/L (21-32) Anion Gap 6 mmol/L (5-15) Blood Urea Nitrogen 11 mg/dL (7-18) Creatinine 1.3 MG/DL (0.55-1.30) Estimat Glomerular Filtration Rate > 60 mL/min (>60) Glucose Level 139 MG/DL (74-106) H Calcium Level 7.9 MG/DL (8.5-10.1) L Total Bilirubin 8.9 MG/DL (0.2-1.0) H Direct Bilirubin 7.8 MG/DL (0.0-0.3) H Aspartate Amino Transf (AST/SGOT) 77 U/L (15-37) H Alanine Aminotransferase (ALT/SGPT) 74 U/L (12-78) Alkaline Phosphatase 1061 U/L (46-116) H Ammonia 45 umol/L (11-32) H Total Protein 5.0 G/DL (6.4-8.2) L Albumin 1.9 G/DL (3.4-5.0) L Globulin 3.1 g/dL Albumin/Globulin Ratio 0.6 (1.0-2.7) L Vancomycin Level Trough 25.4 ug/mL (5.0-12.0) H Current Medications Medications (Trade) Dose Ordered Sig/Obdulia Route PRN Reason Start Time Stop Time Status Last Admin Dose Admin Acetaminophen (Tylenol) 650 mg Q4H PRN ORAL fever 04/24/18 17:15 05/24/18 17:14 04/30/18 18:01 Al Hydroxide/Mg Hydroxide (Mylanta II) 30 ml Q6H PRN ORAL dyspepsia 04/24/18 17:15 05/24/18 17:14 Amlodipine Besylate (Norvasc) 10 mg DAILY ORAL 04/25/18 09:00 05/25/18 08:59 05/02/18 10:31 Dextrose (Dextrose 50%) 25 ml Q30M PRN IV Hypoglycemia 04/24/18 17:15 05/24/18 17:14 Dextrose (Dextrose 50%) 50 ml Q30M PRN IV Hypoglycemia 04/24/18 17:15 05/24/18 17:14 Dextrose/ Electrolytes 1,000 ml @ 120 mls/hr Q8H20M IV 05/03/18 12:30 06/02/18 12:29 05/04/18 01:10 Diphenhydramine HCl (Benadryl) 25 mg Q6H PRN IVP Itching 04/26/18 16:30 05/26/18 16:29 05/02/18 23:53 Folic Acid (Folate) 1 mg DAILY ORAL 04/25/18 12:00 05/25/18 11:59 05/02/18 10:31 Gabapentin (Neurontin) 300 mg THREE TIMES A DAY ORAL 04/25/18 18:00 05/25/18 17:59 05/02/18 18:38 Heparin Sodium (Porcine) (Heparin 5000 units/ml) 5,000 units EVERY 12 HOURS SUBQ 04/24/18 21:00 05/24/18 20:59 05/04/18 09:39 Hydralazine HCl (Apresoline) 25 mg EVERY 8 HOURS ORAL 04/24/18 22:00 05/24/18 21:59 05/03/18 05:32 Lactulose (Cephulac) 10 gm THREE TIMES A DAY ORAL 04/29/18 13:30 05/29/18 13:29 05/02/18 18:37 Levetiracetam (Keppra) 500 mg EVERY 12 HOURS ORAL 04/24/18 21:00 05/24/18 20:59 05/02/18 21:53 Meropenem 1 gm/ Sodium Chloride 55 ml @ 110 mls/hr Q8HR IVPB 05/01/18 14:00 05/06/18 13:59 05/04/18 05:00 Metoclopramide HCl (Reglan) 10 mg Q8H PRN IVP Nausea & Vomiting 05/04/18 11:30 06/03/18 11:29 Ondansetron HCl (Zofran) 4 mg Q6H PRN IVP Nausea & Vomiting 04/24/18 17:15 05/24/18 17:14 05/04/18 09:38 Oxycodone/ Acetaminophen (Percocet 5-325) 1 tab Q4H PRN ORAL severe pain 04/27/18 15:30 05/04/18 15:29 05/02/18 21:55 Polyethylene Glycol (Miralax) 17 gm HSPRN PRN ORAL Constipation 04/24/18 17:15 05/24/18 17:14 Rifaximin (Xifaxan) 550 mg EVERY 12 HOURS ORAL 04/30/18 21:00 05/07/18 20:59 05/02/18 21:53 Vancomycin HCl (Vanco rx to dose) 1 ea DAILY PRN MISC Per rx protocol 04/26/18 13:45 05/26/18 13:44 Vancomycin HCl 1 gm/Sodium Chloride 275 ml @ 183.708 mls/hr Q12HR@1100,2300 IVPB 05/04/18 23:00 05/09/18 22:59 Kelsie Ibarra M.D. May 04, 2018 13:45
--- NOTE | 2018-05-04 13:59 | Surgery Progress Note ---
Surgery Progress Note Subjective Additional Comments labs improving slowly. exam unchanged. stable. Objective Last 24 Hour Vital Signs Date Time Temp Pulse Resp B/P (MAP) Pulse Ox O2 Delivery O2 Flow Rate FiO2 05/04/18 09:00 Room Air 05/04/18 08:00 98.0 89 19 132/70 (90) 98 05/04/18 04:09 97.9 92 19 131/66 (87) 97 05/04/18 00:08 96.6 86 18 124/71 (88) 98 05/03/18 21:00 Room Air 05/03/18 20:26 97.4 99 18 129/78 (95) 96 05/03/18 17:47 98.9 98 21 126/75 (92) 99 05/03/18 16:00 98.9 98 21 126/75 (92) 99 I&O Intake and Output 05/03/18 05/04/18 19:00 07:00 Intake Total 220 ml 1405.0 ml Output Total 1000 ml 1000 ml Balance -780 ml 405.0 ml Intake Oral 100 ml IV Total 120 ml 1405.0 ml Output Urine Total 1000 ml 1000 ml Drains: none Cardiovascular: RSR Respiratory: clear Abdomen: soft, flat, non-tender, non-distended Extremities: no tenderness, no cyanosis Laboratory Tests Test 05/04/18 08:30 White Blood Count 10.9 K/UL (4.8-10.8) H Red Blood Count 3.20 M/UL (4.70-6.10) L Hemoglobin 10.5 G/DL (14.2-18.0) L Hematocrit 31.1 % (42.0-52.0) L Mean Corpuscular Volume 97 FL (80-99) Mean Corpuscular Hemoglobin 32.7 PG (27.0-31.0) H Mean Corpuscular Hemoglobin Concent 33.7 G/DL (32.0-36.0) Red Cell Distribution Width 12.5 % (11.6-14.8) Platelet Count 377 K/UL (150-450) Mean Platelet Volume 6.2 FL (6.5-10.1) L Neutrophils (%) (Auto) % (45.0-75.0) Lymphocytes (%) (Auto) % (20.0-45.0) Monocytes (%) (Auto) % (1.0-10.0) Eosinophils (%) (Auto) % (0.0-3.0) Basophils (%) (Auto) % (0.0-2.0) Differential Total Cells Counted 100 Neutrophils % (Manual) 38 % (45-75) L Lymphocytes % (Manual) 4 % (20-45) L Monocytes % (Manual) 16 % (1-10) H Eosinophils % (Manual) 42 % (0-3) H Basophils % (Manual) 0 % (0-2) Band Neutrophils 0 % (0-8) Platelet Estimate Adequate Platelet Morphology Normal Hypochromasia 1+ Sodium Level 135 MMOL/L (136-145) L Potassium Level 4.1 MMOL/L (3.5-5.1) Chloride Level 104 MMOL/L (98-107) Carbon Dioxide Level 26 MMOL/L (21-32) Anion Gap 6 mmol/L (5-15) Blood Urea Nitrogen 11 mg/dL (7-18) Creatinine 1.3 MG/DL (0.55-1.30) Estimat Glomerular Filtration Rate > 60 mL/min (>60) Glucose Level 139 MG/DL (74-106) H Calcium Level 7.9 MG/DL (8.5-10.1) L Total Bilirubin 8.9 MG/DL (0.2-1.0) H Direct Bilirubin 7.8 MG/DL (0.0-0.3) H Aspartate Amino Transf (AST/SGOT) 77 U/L (15-37) H Alanine Aminotransferase (ALT/SGPT) 74 U/L (12-78) Alkaline Phosphatase 1061 U/L (46-116) H Ammonia 45 umol/L (11-32) H Total Protein 5.0 G/DL (6.4-8.2) L Albumin 1.9 G/DL (3.4-5.0) L Globulin 3.1 g/dL Albumin/Globulin Ratio 0.6 (1.0-2.7) L Vancomycin Level Trough 25.4 ug/mL (5.0-12.0) H Plan Problems: (1) Transaminitis Assessment & Plan: reviewed chart discussed with GI likely due to drug toxicity. (2) Elevated alkaline phosphatase level (3) Intractable pain Assessment & Plan: US noted MRI noted HIDA noted possible acute acalculous cholecystitis. exam difficult given history labs with resolved leukocytosis lft's abnormal from drug toxicity trend labs okay for diet will follow clinically (4) Sepsis Jamin Lynch May 04, 2018 13:59
--- NOTE | 2018-05-04 14:53 | NUR ---
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
[2018-05-04 16:00] VITALS: BP 137/98
[2018-05-04] MEDS: oxyCODONE HCL/Acetaminophen 5/325mg ORAL PRN ×2 (17:37→23:36)
--- NOTE | 2018-05-04 17:45 | General Progress Note ---
Assessment/Plan Assessment/Plan (1) Headache (2) Brain neoplasm s/p craniotomy and resection Patient to be continued on Neurontin and Percocet. D/w Dr. Delarosa and he concurred. Subjective Date patient seen: May 04, 2018 Time patient seen: 04:30 - pm Allergies: Coded Allergies: GADOBUTROL (Verified Allergy, Intermediate, 04/30/18) PHENYTOIN (Verified Allergy, Unknown, 05/03/18) Drug hypersensitivity syndrome; hepatotoxicity Uncoded Allergies: CONTRAST (Allergy, Mild, Rash, 05/03/18) questionable if it was due to contrast; patient at the time (April 2018) also had dilantin reaction (probably rash was due to dilantin) Subjective REVIEW OF SYSTEMS: Denies rash, fever, chills, sweating, dizziness, drowsiness, blurred vision, sore throat, or change in his weight. No shortness of breath, chest pain, palpitations, or cough. No nausea, vomiting, diarrhea, or blood in stool or urine. He complains of headaches. SUBJECTIVE: Patient showing no signs of pain or distress. Pain is tolerated on the Percocet. Objective Last 24 Hour Vital Signs Date Time Temp Pulse Resp B/P (MAP) Pulse Ox O2 Delivery O2 Flow Rate FiO2 05/04/18 16:00 99.1 99 20 137/98 (111) 99 05/04/18 14:46 131/83 05/04/18 12:00 97.7 101 19 131/83 (99) 98 05/04/18 09:00 Room Air 05/04/18 08:00 98.0 89 19 132/70 (90) 98 05/04/18 04:09 97.9 92 19 131/66 (87) 97 05/04/18 00:08 96.6 86 18 124/71 (88) 98 05/03/18 21:00 Room Air 05/03/18 20:26 97.4 99 18 129/78 (95) 96 05/03/18 17:47 98.9 98 21 126/75 (92) 99 Intake and Output 05/03/18 05/04/18 19:00 07:00 Intake Total 220 ml 1405.0 ml Output Total 1000 ml 1000 ml Balance -780 ml 405.0 ml Intake Oral 100 ml IV Total 120 ml 1405.0 ml Output Urine Total 1000 ml 1000 ml Laboratory Tests 05/04/18 08:30: White Blood Count 10.9H, Red Blood Count 3.20L, Hemoglobin 10.5L, Hematocrit 31.1L, Mean Corpuscular Volume 97, Mean Corpuscular Hemoglobin 32.7H, Mean Corpuscular Hemoglobin Concent 33.7, Red Cell Distribution Width 12.5, Platelet Count 377, Mean Platelet Volume 6.2L, Neutrophils (%) (Auto) , Lymphocytes (%) ( Auto) , Monocytes (%) (Auto) , Eosinophils (%) (Auto) , Basophils (%) (Auto) , Differential Total Cells Counted 100, Neutrophils % (Manual) 38L, Lymphocytes % (Manual) 4L, Monocytes % (Manual) 16H, Eosinophils % (Manual) 42H, Basophils % ( Manual) 0, Band Neutrophils 0, Platelet Estimate Adequate, Platelet Morphology Normal, Hypochromasia 1+, Sodium Level 135L, Potassium Level 4.1, Chloride Level 104, Carbon Dioxide Level 26, Anion Gap 6, Blood Urea Nitrogen 11, Creatinine 1.3, Estimat Glomerular Filtration Rate > 60, Glucose Level 139H, Calcium Level 7.9L, Total Bilirubin 8.9H, Direct Bilirubin 7.8H, Aspartate Amino Transf (AST/SGOT) 77H, Alanine Aminotransferase (ALT/SGPT) 74, Alkaline Phosphatase 1061H, Ammonia 45H, Total Protein 5.0L, Albumin 1.9L, Globulin 3.1, Albumin/Globulin Ratio 0.6L, Vancomycin Level Trough 25.4H Height (Feet): 5 Height (Inches): 11.00 Weight (Pounds): 148 Objective GENERAL: Alert, awake, and oriented. LUNGS: Clear bilaterally. HEART: S1 and S2, regular. ABDOMEN: Soft and nontender. EXTREMITIES: No cyanosis. No clubbing. No edema. NEURO: No changes. Albert Hoyos May 04, 2018 17:45
--- NOTE | 2018-05-04 19:20 | NUR ---
NURSE NOTES: Pt received lying in bed left lateral. Sleeping, but arousable to name and light touch. Pt did not complain of pain at this time. IV in place with fluids running. Bed locked in lowest position, side rails up x2, seizure precautions in place with side rails padded. Sitter Tash at the bedside. Will continue to monitor.
--- NOTE | 2018-05-04 19:33 | NUR ---
HAND-OFF: Report given to BELEN Goldstein/BELEN Viera.
[2018-05-04 20:00] VITALS: BP 118/69
[2018-05-04] MEDS ORDERED: Vancomycin 1 GM in NS 275 ML IVPB SCH (23:00)
[2018-05-05] VITALS (8 sets, daily range): BP systolic 109–148; BP diastolic 64–88
[2018-05-05] MEDS: Meropenem 1 GM in NS 55 ML IVPB SCH ×3 (05:09→21:07)
[2018-05-05] MEDS: HydrALAZINE 25mg tab ORAL SCH ×3 (05:10→21:20)
[2018-05-05] MEDS: oxyCODONE HCL/Acetaminophen 5/325mg ORAL PRN ×3 (05:18→21:49)
[2018-05-05 07:24] LABS: HEMATOCRIT 34.1 % (42.0-52.0); HEMOGLOBIN 11.6 G/DL (14.2-18.0); MEAN CORPUSCULAR VOLUME 98 FL (80-99); PLATELET COUNT 440 K/UL (150-450); RED BLOOD COUNT 3.48 M/UL (4.70-6.10); RED CELL DISTRIBUTION WIDTH 12.8 % (11.6-14.8); WHITE BLOOD COUNT 10.9 K/UL (4.8-10.8)
--- NOTE | 2018-05-05 07:44 | NUR ---
HAND-OFF: Report given to Ashley GLOVER.
--- NOTE | 2018-05-05 07:54 | NUR ---
NURSE NOTES: Report received from Lucas RN. Pt in bed, awake, A/O x2, vomiting, Zofran given at 0749. Bed in lowest position, call light within reach, sitterJamilah at bedside
[2018-05-05 08:03] LABS: ALANINE AMINOTRANSFERASE 88 U/L (12-78); ALBUMIN 2.1 G/DL (3.4-5.0); ALBUMIN/GLOBULIN RATIO 0.6 (1.0-2.7); ALKALINE PHOSPHATASE 1329 U/L (46-116); ANION GAP 9 mmol/L (5-15); ASPARTATE AMINO TRANSFERASE 121 U/L (15-37); BLOOD UREA NITROGEN 12 mg/dL (7-18); CALCIUM 8.4 MG/DL (8.5-10.1); CARBON DIOXIDE 23 MMOL/L (21-32); CHLORIDE 103 MMOL/L (98-107); CREATININE 1.3 MG/DL (0.55-1.30); POTASSIUM 4.3 MMOL/L (3.5-5.1); SODIUM 135 MMOL/L (136-145)
[2018-05-05 08:06] LABS: BILIRUBIN,DIRECT 8.5 MG/DL (0.0-0.3)
--- NOTE | 2018-05-05 08:07 | NUR ---
NURSE NOTES: Critical level for Phenytoin 34.2, left message for Dr. Parada, complete Critical Lab value, 0815: Spoke with Dr. Parada, no new orders given, discussed free phenytoin level
--- NOTE | 2018-05-05 08:07 | NUR ---
NURSE NOTES: Left message for
--- NOTE | 2018-05-05 08:13 | NUR ---
NURSE NOTES: Notified Dr. Moran regarding LFT labs this am
[2018-05-05] MEDS: Lactulose 10gm/15ml UDC ORAL SCH ×3 (09:00→17:40)
--- NOTE | 2018-05-05 09:27 | General Progress Note ---
Assessment/Plan Assessment/Plan (1) Headache (2) Brain neoplasm s/p craniotomy and resection Patient to be continued on Neurontin and Percocet. D/w Dr. Delarosa and he concurred. Subjective Date patient seen: May 05, 2018 Time patient seen: 08:15 - am Allergies: Coded Allergies: GADOBUTROL (Verified Allergy, Intermediate, 04/30/18) PHENYTOIN (Verified Allergy, Unknown, 05/03/18) Drug hypersensitivity syndrome; hepatotoxicity Uncoded Allergies: CONTRAST (Allergy, Mild, Rash, 05/03/18) questionable if it was due to contrast; patient at the time (April 2018) also had dilantin reaction (probably rash was due to dilantin) Subjective REVIEW OF SYSTEMS: Denies rash, fever, chills, sweating, dizziness, drowsiness, blurred vision, sore throat, or change in his weight. No shortness of breath, chest pain, palpitations, or cough. No nausea, vomiting, diarrhea, or blood in stool or urine. He complains of headaches. SUBJECTIVE: Patient is in bed and has been tolerating the pain on the Percocet. He has no new complaints. Objective Last 24 Hour Vital Signs Date Time Temp Pulse Resp B/P (MAP) Pulse Ox O2 Delivery O2 Flow Rate FiO2 05/05/18 07:44 98.8 101 20 109/64 (79) 98 05/05/18 05:10 131/86 05/05/18 04:00 99.3 98 20 131/86 (101) 99 05/05/18 00:00 98.1 91 20 121/76 (91) 96 05/04/18 21:23 118/69 05/04/18 21:00 Room Air 05/04/18 20:00 99.1 92 20 118/69 (85) 98 05/04/18 16:00 99.1 99 20 137/98 (111) 99 05/04/18 14:46 131/83 05/04/18 12:00 97.7 101 19 131/83 (99) 98 Intake and Output 05/04/18 05/05/18 19:00 07:00 Intake Total 1525 ml 1550 ml Output Total 1000 ml Balance 1525 ml 550 ml Intake Oral 480 ml 360 ml IV Total 1045 ml 1190 ml Output Urine Total 1000 ml # Voids 4 3 Laboratory Tests 05/05/18 06:57: White Blood Count 10.9H, Red Blood Count 3.48L, Hemoglobin 11.6L, Hematocrit 34.1L, Mean Corpuscular Volume 98, Mean Corpuscular Hemoglobin 33.2H, Mean Corpuscular Hemoglobin Concent 34.0, Red Cell Distribution Width 12.8, Platelet Count 440, Mean Platelet Volume 6.4L, Neutrophils (%) (Auto) , Lymphocytes (%) ( Auto) , Monocytes (%) (Auto) , Eosinophils (%) (Auto) , Basophils (%) (Auto) , Neutrophils % (Manual) [Pending], Lymphocytes % (Manual) [Pending], Platelet Estimate [Pending], Platelet Morphology [Pending], Sodium Level 135L, Potassium Level 4.3, Chloride Level 103, Carbon Dioxide Level 23, Anion Gap 9, Blood Urea Nitrogen 12, Creatinine 1.3, Estimat Glomerular Filtration Rate > 60, Glucose Level 113H, Calcium Level 8.4L, Total Bilirubin 10.0H, Direct Bilirubin 8.5H, Aspartate Amino Transf (AST/SGOT) 121H, Alanine Aminotransferase (ALT/SGPT) 88H , Alkaline Phosphatase 1329H, Total Protein 5.4L, Albumin 2.1L, Globulin 3.3, Albumin/Globulin Ratio 0.6L, Phenytoin (Dilantin) Level 34.2*H Height (Feet): 5 Height (Inches): 11.00 Weight (Pounds): 148 Objective GENERAL: Alert, awake, and oriented. LUNGS: Clear bilaterally. HEART: S1 and S2, regular. ABDOMEN: Soft and nontender. EXTREMITIES: No cyanosis. No clubbing. No edema. NEURO: No changes. Albert Hoyos May 05, 2018 09:27
--- NOTE | 2018-05-05 09:40 | NUR ---
NURSE NOTES: Report received from Ashley GLOVER. Pt in bed, awake, A/O x2, vomitted this am. IVF infusing well. Bed in lowest position, call light within reach, sitter, Salve at bedside as sitter. will cont to monitor.
[2018-05-05] MEDS: Heparin 5000 units/ml inj SUBQ SCH ×2 (09:54→21:08)
--- NOTE | 2018-05-05 11:00 | GI Progress Note ---
Assessment/Plan Problems: (1) Weak ICD Codes: R53.1 - Weakness SNOMED: 01374500 (2) Malnutrition ICD Codes: E46 - Unspecified protein-calorie malnutrition SNOMED: 52056536 (3) Brain tumor ICD Codes: D49.6 - Neoplasm of unspecified behavior of brain SNOMED: 694313359 (4) Transaminitis ICD Codes: R74.0 - Nonspecific elevation of levels of transaminase and lactic acid dehydrogenase [LDH] SNOMED: 410334989, 750585934 (5) Anemia ICD Codes: D64.9 - Anemia, unspecified SNOMED: 810131582 (6) Intractable pain ICD Codes: R52 - Pain, unspecified SNOMED: 77050304 (7) Phenytoin toxicity ICD Codes: T42.0X1A - Poisoning by hydantoin derivatives, accidental ( unintentional), initial encounter SNOMED: 74362108 Status: progressing Status Narrative Discussed with Dr. Kimball Assessment/Plan Head CT reviewed lipase normal abdominal US reviewed, negative follow Hepatitis panel, negative MRCP reviewed, negative for common bile duct dilation. Possible cholecystitis. AMA, REHAN and SMA negative Phenytoin toxicity >> DC Dilantin Advance diet OB stool r/o GI bleed monitor H&H, prn transfusions bowel regime ppi lactulose + xifaxan Trend LFTs Outpatient GI procedures The patient was seen and examined at bedside and all new and available data was reviewed in the patients chart. I agree with the above findings, impression and plan. (Patient seen earlier today. Signature stamp does not reflect patient encounter time.). - Barry Kimball MD Subjective Subjective REES nausea vomiting Objective Last 24 Hour Vital Signs Date Time Temp Pulse Resp B/P (MAP) Pulse Ox O2 Delivery O2 Flow Rate FiO2 05/05/18 09:00 101 109/64 05/05/18 07:44 98.8 101 20 109/64 (79) 98 05/05/18 05:10 131/86 05/05/18 04:00 99.3 98 20 131/86 (101) 99 05/05/18 00:00 98.1 91 20 121/76 (91) 96 05/04/18 21:23 118/69 05/04/18 21:00 Room Air 05/04/18 20:00 99.1 92 20 118/69 (85) 98 05/04/18 16:00 99.1 99 20 137/98 (111) 99 05/04/18 14:46 131/83 05/04/18 12:00 97.7 101 19 131/83 (99) 98 Intake and Output 05/04/18 05/05/18 19:00 07:00 Intake Total 1525 ml 1550 ml Output Total 1000 ml Balance 1525 ml 550 ml Intake Oral 480 ml 360 ml IV Total 1045 ml 1190 ml Output Urine Total 1000 ml # Voids 4 3 Laboratory Tests Test 05/05/18 06:57 White Blood Count 10.9 K/UL (4.8-10.8) H Red Blood Count 3.48 M/UL (4.70-6.10) L Hemoglobin 11.6 G/DL (14.2-18.0) L Hematocrit 34.1 % (42.0-52.0) L Mean Corpuscular Volume 98 FL (80-99) Mean Corpuscular Hemoglobin 33.2 PG (27.0-31.0) H Mean Corpuscular Hemoglobin Concent 34.0 G/DL (32.0-36.0) Red Cell Distribution Width 12.8 % (11.6-14.8) Platelet Count 440 K/UL (150-450) Mean Platelet Volume 6.4 FL (6.5-10.1) L Neutrophils (%) (Auto) % (45.0-75.0) Lymphocytes (%) (Auto) % (20.0-45.0) Monocytes (%) (Auto) % (1.0-10.0) Eosinophils (%) (Auto) % (0.0-3.0) Basophils (%) (Auto) % (0.0-2.0) Neutrophils % (Manual) Pending Lymphocytes % (Manual) Pending Platelet Estimate Pending Platelet Morphology Pending Sodium Level 135 MMOL/L (136-145) L Potassium Level 4.3 MMOL/L (3.5-5.1) Chloride Level 103 MMOL/L (98-107) Carbon Dioxide Level 23 MMOL/L (21-32) Anion Gap 9 mmol/L (5-15) Blood Urea Nitrogen 12 mg/dL (7-18) Creatinine 1.3 MG/DL (0.55-1.30) Estimat Glomerular Filtration Rate > 60 mL/min (>60) Glucose Level 113 MG/DL (74-106) H Calcium Level 8.4 MG/DL (8.5-10.1) L Total Bilirubin 10.0 MG/DL (0.2-1.0) H Direct Bilirubin 8.5 MG/DL (0.0-0.3) H Aspartate Amino Transf (AST/SGOT) 121 U/L (15-37) H Alanine Aminotransferase (ALT/SGPT) 88 U/L (12-78) H Alkaline Phosphatase 1329 U/L (46-116) H Total Protein 5.4 G/DL (6.4-8.2) L Albumin 2.1 G/DL (3.4-5.0) L Globulin 3.3 g/dL Albumin/Globulin Ratio 0.6 (1.0-2.7) L Phenytoin (Dilantin) Level 34.2 ug/mL (10-20) *H Height (Feet): 5 Height (Inches): 11.00 Weight (Pounds): 148 General Appearance: WD/WN, no apparent distress, alert Cardiovascular: normal rate Respiratory/Chest: normal breath sounds, no respiratory distress Abdominal Exam: normal bowel sounds, non tender, soft Extremities: normal range of motion, non-tender Bhupendra Barriga NP May 05, 2018 11:00
--- NOTE | 2018-05-05 11:33 | NUR ---
PT NOTE: Pt refused to participate in PT treatment session due to not feeling well and vomiting. Pt educated on the importance of performing gentle therapeutic exercises to improve well-being and overall health. Pt continued to refuse PT treatment session. Will return at a later time to attempt PT session. Left nurse call light within easy reach.
--- NOTE | 2018-05-05 12:28 | Surgery Progress Note ---
Surgery Progress Note Subjective Additional Comments no acute events. LFT's elevated. Dilantin levels still elevated. exam unchanged. tachy at times. afebrile, HD Stable. Objective Last 24 Hour Vital Signs Date Time Temp Pulse Resp B/P (MAP) Pulse Ox O2 Delivery O2 Flow Rate FiO2 05/05/18 11:42 98.2 100 20 131/83 (99) 98 05/05/18 10:28 98.8 05/05/18 09:00 101 109/64 05/05/18 07:44 98.8 101 20 109/64 (79) 98 05/05/18 05:10 131/86 05/05/18 04:00 99.3 98 20 131/86 (101) 99 05/05/18 00:00 98.1 91 20 121/76 (91) 96 05/04/18 21:23 118/69 05/04/18 21:00 Room Air 05/04/18 20:00 99.1 92 20 118/69 (85) 98 05/04/18 16:00 99.1 99 20 137/98 (111) 99 05/04/18 14:46 131/83 I&O Intake and Output 05/04/18 05/05/18 19:00 07:00 Intake Total 1525 ml 1550 ml Output Total 1000 ml Balance 1525 ml 550 ml Intake Oral 480 ml 360 ml IV Total 1045 ml 1190 ml Output Urine Total 1000 ml # Voids 4 3 Drains: none Cardiovascular: RSR Respiratory: clear Abdomen: soft, non-tender, present bowel sounds, non-distended Extremities: no tenderness, no cyanosis Laboratory Tests Test 05/05/18 06:57 White Blood Count 10.9 K/UL (4.8-10.8) H Red Blood Count 3.48 M/UL (4.70-6.10) L Hemoglobin 11.6 G/DL (14.2-18.0) L Hematocrit 34.1 % (42.0-52.0) L Mean Corpuscular Volume 98 FL (80-99) Mean Corpuscular Hemoglobin 33.2 PG (27.0-31.0) H Mean Corpuscular Hemoglobin Concent 34.0 G/DL (32.0-36.0) Red Cell Distribution Width 12.8 % (11.6-14.8) Platelet Count 440 K/UL (150-450) Mean Platelet Volume 6.4 FL (6.5-10.1) L Neutrophils (%) (Auto) % (45.0-75.0) Lymphocytes (%) (Auto) % (20.0-45.0) Monocytes (%) (Auto) % (1.0-10.0) Eosinophils (%) (Auto) % (0.0-3.0) Basophils (%) (Auto) % (0.0-2.0) Differential Total Cells Counted 100 Neutrophils % (Manual) 40 % (45-75) L Lymphocytes % (Manual) 7 % (20-45) L Monocytes % (Manual) 14 % (1-10) H Eosinophils % (Manual) 39 % (0-3) H Basophils % (Manual) 0 % (0-2) Band Neutrophils 0 % (0-8) Platelet Estimate Adequate Platelet Morphology Normal Red Blood Cell Morphology Normal Sodium Level 135 MMOL/L (136-145) L Potassium Level 4.3 MMOL/L (3.5-5.1) Chloride Level 103 MMOL/L (98-107) Carbon Dioxide Level 23 MMOL/L (21-32) Anion Gap 9 mmol/L (5-15) Blood Urea Nitrogen 12 mg/dL (7-18) Creatinine 1.3 MG/DL (0.55-1.30) Estimat Glomerular Filtration Rate > 60 mL/min (>60) Glucose Level 113 MG/DL (74-106) H Calcium Level 8.4 MG/DL (8.5-10.1) L Total Bilirubin 10.0 MG/DL (0.2-1.0) H Direct Bilirubin 8.5 MG/DL (0.0-0.3) H Aspartate Amino Transf (AST/SGOT) 121 U/L (15-37) H Alanine Aminotransferase (ALT/SGPT) 88 U/L (12-78) H Alkaline Phosphatase 1329 U/L (46-116) H Total Protein 5.4 G/DL (6.4-8.2) L Albumin 2.1 G/DL (3.4-5.0) L Globulin 3.3 g/dL Albumin/Globulin Ratio 0.6 (1.0-2.7) L Phenytoin (Dilantin) Level 34.2 ug/mL (10-20) *H Plan Problems: (1) Transaminitis Assessment & Plan: reviewed chart discussed with GI likely due to drug toxicity. (2) Elevated alkaline phosphatase level (3) Intractable pain Assessment & Plan: US noted - The liver is unremarkable. The gallbladder is unremarkable. The demonstrated part of the pancreas, aorta and IVC show no abnormalities. Both kidneys appear unremarkable. The spleen is normal in size. There is no biliary ductal dilatation identified. Doppler evaluation of the main portal vein shows patency. There is no ascites. No hydronephrosis seen. CBD is 3 mm. MRI noted - No definite gallstones. However, there is gallbladder wall edema and pericholecystic fluid. Could indicate acalculous acute cholecystitis or cholecystitis due to an occult calculus. Alternatively, this could represent reactive changes secondary to adjacent hepatocellular inflammation. Consider hepatobiliary nuclear scan if there is high clinical suspicion for acute cholecystitis. Negative for biliary ductal dilatation. HIDA noted - Poor hepatic tracer uptake, no biliary excretion. Findings most likely represents severe hepatocellular disease. Findings are nondiagnostic as regards cystic duct or common bile duct patency possible acute acalculous cholecystitis. exam difficult given history labs with resolved leukocytosis lft's abnormal from drug toxicity - levels still elevated. trend labs okay for diet will follow clinically (4) Sepsis Jamin Lynch May 05, 2018 12:28
--- NOTE | 2018-05-05 12:40 | Infectious Diseases Prog Note ---
Assessment/Plan Assessment/Plan Assessment: Sepsis; improving- likely due to probable acute acalculous cholecystitis Fever , SP ?PNA -CXR: Mildly increased interstitial markings. This is nonspecific and cannot exclude a mild bronchitis or interstitial pneumonitis. No focal consolidation. -wound cx craniotomy incision: MSSA (wound doesnt appaer infected) -bcx NTD -influenza sc neg Mild leukocytosis,SP Elevated LFTs, improving (probably due to both cholecystitis and toxic phenytoin levels); increasing Elev alk and Leno )ALP >> AST, ALT); worsening- Probasble Acute acalculous cholecystitis -HIDA scan: Poor hepatic tracer uptake, no biliary excretion. Findings most likely represents severe hepatocellular disease. Findings are nondiagnostic as regards cystic duct or common bile duct patency -MRCP:No definite gallstones. However, there is gallbladder wall edema and pericholecystic fluid. Could indicate acalculous acute cholecystitis or cholecystitis due to an occult calculus. Alternatively, this could represent reactive changes secondary to adjacent hepatocellular inflammation. Consider hepatobiliary nuclear scan if there is high clinical suspicion for acute cholecystitis. Negative for biliary ductal dilatation. Periportal edema. This can be seen acute hepatitis or right heart failure, among other possibilities -Abd US: No acute findings. 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 Please correlate with the surgical history. Some enhancement of the dura along the anterior interhemispheric fissure and within the surgical bed is not unexpected given the recent surgery. However, the possibility of residual neoplasm is not excludable. There are no reference studies to compare to the preoperative MRI available. Other notable postsurgical finding includes a small fluid collection within the surgical bed deep to the bifrontal craniotomy flap and mild edema within the frontal lobes -CT brain wo: Postsurgical changes associated with relatively recent bifrontal craniotomy likely resection of a mass in the area of the interhemispheric fissure. 6 mm thick mixed attenuation extra-axial blood noted within the surgical bed. Please correlate with the operative report and comparison with prior studies is strongly recommended. -ESR 42, CRP 16.2 -HIV ag/ab neg MICHELLE (supratherapuetic vanco levels) Recent Brain tumor removal (1 month ago) seizure disorder GERD Tobacco use Drug rash-?culprit (present before antibiotics) Plan: -Continue Meropenem #5 (abx d#12/11) given ongoing fevers and leukocytosis and for probable acute acalculous cholecystitis -3/ SP IV Vancomycin #7 -/ SP Cefepime #6 -Will hold on LP for now as an alternative source of sepsis is considered -f/u cx -Monitor CBC/CMP, temperatures -GI, Sx f/u: plan for liver bx; ?cholecystostomy -Nuero fu: holding Phenytoin (toxic levels; also probable drug induced hypersensitize syndrome as had rash, eosinophilia and hepatoxicity) Discussed with RN Subjective Allergies: Coded Allergies: GADOBUTROL (Verified Allergy, Intermediate, 04/30/18) PHENYTOIN (Verified Allergy, Unknown, 05/03/18) Drug hypersensitivity syndrome; hepatotoxicity Uncoded Allergies: CONTRAST (Allergy, Mild, Rash, 05/03/18) questionable if it was due to contrast; patient at the time (Mar-April 2018) also had dilantin reaction (probably rash was due to dilantin) Subjective afebrile mild leukocytosis Bcx NTD ALP and Tbili worsening AST and ALT mild worsenign today Objective Vital Signs Last 24 Hour Vital Signs Date Time Temp Pulse Resp B/P (MAP) Pulse Ox O2 Delivery O2 Flow Rate FiO2 05/05/18 11:42 98.2 100 20 131/83 (99) 98 05/05/18 10:28 98.8 05/05/18 09:00 101 109/64 05/05/18 07:44 98.8 101 20 109/64 (79) 98 05/05/18 05:10 131/86 05/05/18 04:00 99.3 98 20 131/86 (101) 99 05/05/18 00:00 98.1 91 20 121/76 (91) 96 05/04/18 21:23 118/69 05/04/18 21:00 Room Air 05/04/18 20:00 99.1 92 20 118/69 (85) 98 05/04/18 16:00 99.1 99 20 137/98 (111) 99 05/04/18 14:46 131/83 Height (Feet): 5 Height (Inches): 11.00 Weight (Pounds): 148 Objective HEAD: craniotomy scar with some superficial ulceration on R left side- no signs of infection GENERAL: Anxious in bed, oriented x2, in no acute distress. CARDIOVASCULAR: No murmur. LUNGS: Distant and clear. ABDOMEN: Bowel sounds positive. Nontender. Nondistended. EXTREMITIES: No cyanosis, clubbing, or edema. NEUROLOGIC: The patient moves all extremities. Slight weakness in extremities. Skin: maculopapular rash in torso, arms Laboratory Tests Test 05/05/18 06:57 White Blood Count 10.9 K/UL (4.8-10.8) H Red Blood Count 3.48 M/UL (4.70-6.10) L Hemoglobin 11.6 G/DL (14.2-18.0) L Hematocrit 34.1 % (42.0-52.0) L Mean Corpuscular Volume 98 FL (80-99) Mean Corpuscular Hemoglobin 33.2 PG (27.0-31.0) H Mean Corpuscular Hemoglobin Concent 34.0 G/DL (32.0-36.0) Red Cell Distribution Width 12.8 % (11.6-14.8) Platelet Count 440 K/UL (150-450) Mean Platelet Volume 6.4 FL (6.5-10.1) L Neutrophils (%) (Auto) % (45.0-75.0) Lymphocytes (%) (Auto) % (20.0-45.0) Monocytes (%) (Auto) % (1.0-10.0) Eosinophils (%) (Auto) % (0.0-3.0) Basophils (%) (Auto) % (0.0-2.0) Differential Total Cells Counted 100 Neutrophils % (Manual) 40 % (45-75) L Lymphocytes % (Manual) 7 % (20-45) L Monocytes % (Manual) 14 % (1-10) H Eosinophils % (Manual) 39 % (0-3) H Basophils % (Manual) 0 % (0-2) Band Neutrophils 0 % (0-8) Platelet Estimate Adequate Platelet Morphology Normal Red Blood Cell Morphology Normal Sodium Level 135 MMOL/L (136-145) L Potassium Level 4.3 MMOL/L (3.5-5.1) Chloride Level 103 MMOL/L (98-107) Carbon Dioxide Level 23 MMOL/L (21-32) Anion Gap 9 mmol/L (5-15) Blood Urea Nitrogen 12 mg/dL (7-18) Creatinine 1.3 MG/DL (0.55-1.30) Estimat Glomerular Filtration Rate > 60 mL/min (>60) Glucose Level 113 MG/DL (74-106) H Calcium Level 8.4 MG/DL (8.5-10.1) L Total Bilirubin 10.0 MG/DL (0.2-1.0) H Direct Bilirubin 8.5 MG/DL (0.0-0.3) H Aspartate Amino Transf (AST/SGOT) 121 U/L (15-37) H Alanine Aminotransferase (ALT/SGPT) 88 U/L (12-78) H Alkaline Phosphatase 1329 U/L (46-116) H Total Protein 5.4 G/DL (6.4-8.2) L Albumin 2.1 G/DL (3.4-5.0) L Globulin 3.3 g/dL Albumin/Globulin Ratio 0.6 (1.0-2.7) L Phenytoin (Dilantin) Level 34.2 ug/mL (10-20) *H Current Medications Medications (Trade) Dose Ordered Sig/Obdulia Route PRN Reason Start Time Stop Time Status Last Admin Dose Admin Acetaminophen (Tylenol) 650 mg Q4H PRN ORAL fever 04/24/18 17:15 05/24/18 17:14 05/04/18 14:17 Al Hydroxide/Mg Hydroxide (Mylanta II) 30 ml Q6H PRN ORAL dyspepsia 04/24/18 17:15 05/24/18 17:14 Amlodipine Besylate (Norvasc) 10 mg DAILY ORAL 04/25/18 09:00 05/25/18 08:59 05/02/18 10:31 Dextrose (Dextrose 50%) 25 ml Q30M PRN IV Hypoglycemia 04/24/18 17:15 05/24/18 17:14 Dextrose (Dextrose 50%) 50 ml Q30M PRN IV Hypoglycemia 04/24/18 17:15 05/24/18 17:14 Dextrose/ Electrolytes 1,000 ml @ 120 mls/hr Q8H20M IV 05/03/18 12:30 06/02/18 12:29 05/05/18 05:09 Diphenhydramine HCl (Benadryl) 25 mg Q6H PRN IVP Itching 04/26/18 16:30 05/26/18 16:29 05/02/18 23:53 Folic Acid (Folate) 1 mg DAILY ORAL 04/25/18 12:00 05/25/18 11:59 05/05/18 09:50 Gabapentin (Neurontin) 300 mg THREE TIMES A DAY ORAL 04/25/18 18:00 05/25/18 17:59 05/05/18 09:50 Heparin Sodium (Porcine) (Heparin 5000 units/ml) 5,000 units EVERY 12 HOURS SUBQ 04/24/18 21:00 05/24/18 20:59 05/05/18 09:54 Hydralazine HCl (Apresoline) 25 mg EVERY 8 HOURS ORAL 04/24/18 22:00 05/24/18 21:59 05/05/18 05:10 Lactulose (Cephulac) 10 gm THREE TIMES A DAY ORAL 04/29/18 13:30 05/29/18 13:29 05/04/18 17:36 Levetiracetam (Keppra) 500 mg EVERY 12 HOURS ORAL 04/24/18 21:00 05/24/18 20:59 05/05/18 09:50 Meropenem 1 gm/ Sodium Chloride 55 ml @ 110 mls/hr Q8HR IVPB 05/01/18 14:00 05/06/18 13:59 05/05/18 05:09 Metoclopramide HCl (Reglan) 10 mg Q8H PRN IVP Nausea & Vomiting 05/04/18 11:30 06/03/18 11:29 Ondansetron HCl (Zofran) 4 mg Q6H PRN IVP Nausea & Vomiting 04/24/18 17:15 05/24/18 17:14 05/05/18 07:49 Oxycodone/ Acetaminophen (Percocet 5-325) 1 tab Q4H PRN ORAL severe pain 05/04/18 17:30 05/11/18 17:29 05/05/18 09:58 Polyethylene Glycol (Miralax) 17 gm HSPRN PRN ORAL Constipation 04/24/18 17:15 05/24/18 17:14 Rifaximin (Xifaxan) 550 mg EVERY 12 HOURS ORAL 04/30/18 21:00 05/07/18 20:59 05/05/18 09:50 Kelsie Ibarra M.D. May 05, 2018 12:40
--- NOTE | 2018-05-05 12:45 | NUR ---
[employer] SI: DEHYDRATION/ INTRACTABLE PAIN VS: BP 131/83, P 101, T 99.3, RR 20 SpO2 98 WBC 10.9, RBC 3.48, Na 135, Glucose 113, Ca 8.4, T. Bilirubin 10.0, AST 121, ALT 88, Alk. Phos. 1329 T. Protein 5.4 IS:Zofran IVP Heparin SUBQ Keppra Apresoline Norvasc Gabapentin Lactulose Rifaximin Meropenem IVPB Percocet MED/SURG STATUS
--- NOTE | 2018-05-05 13:27 | General Progress Note ---
Assessment/Plan Problem List: (1) Head ache ICD Codes: R51 - Headache SNOMED: 84370831 (2) Weak ICD Codes: R53.1 - Weakness SNOMED: 89077859 (3) HTN (hypertension) ICD Codes: I10 - Essential (primary) hypertension SNOMED: 35929261 (4) Malnutrition ICD Codes: E46 - Unspecified protein-calorie malnutrition SNOMED: 91993714 (5) Epilepsy ICD Codes: G40.909 - Epilepsy, unspecified, not intractable, without status epilepticus SNOMED: 09921023 (6) Intractable pain ICD Codes: R52 - Pain, unspecified SNOMED: 47870286 (7) Phenytoin toxicity ICD Codes: T42.0X1A - Poisoning by hydantoin derivatives, accidental ( unintentional), initial encounter SNOMED: 12792329 Status: unchanged Assessment/Plan pt diet pain control neuro psyc eval abx prn cbc bmp am dc plan if clear Subjective Constitutional: Reports: weakness Allergies: Coded Allergies: GADOBUTROL (Verified Allergy, Intermediate, 04/30/18) PHENYTOIN (Verified Allergy, Unknown, 05/03/18) Drug hypersensitivity syndrome; hepatotoxicity Uncoded Allergies: CONTRAST (Allergy, Mild, Rash, 05/03/18) questionable if it was due to contrast; patient at the time (Mar-April 2018) also had dilantin reaction (probably rash was due to dilantin) All Systems: reviewed and negative except above Subjective sleepy c/o some head ache Objective Last 24 Hour Vital Signs Date Time Temp Pulse Resp B/P (MAP) Pulse Ox O2 Delivery O2 Flow Rate FiO2 05/05/18 11:42 98.2 100 20 131/83 (99) 98 05/05/18 10:28 98.8 05/05/18 09:00 101 109/64 05/05/18 07:44 98.8 101 20 109/64 (79) 98 05/05/18 05:10 131/86 05/05/18 04:00 99.3 98 20 131/86 (101) 99 05/05/18 00:00 98.1 91 20 121/76 (91) 96 05/04/18 21:23 118/69 05/04/18 21:00 Room Air 05/04/18 20:00 99.1 92 20 118/69 (85) 98 05/04/18 16:00 99.1 99 20 137/98 (111) 99 05/04/18 14:46 131/83 Intake and Output 05/04/18 05/05/18 19:00 07:00 Intake Total 1525 ml 1550 ml Output Total 1000 ml Balance 1525 ml 550 ml Intake Oral 480 ml 360 ml IV Total 1045 ml 1190 ml Output Urine Total 1000 ml # Voids 4 3 Laboratory Tests 05/05/18 06:57: White Blood Count 10.9H, Red Blood Count 3.48L, Hemoglobin 11.6L, Hematocrit 34.1L, Mean Corpuscular Volume 98, Mean Corpuscular Hemoglobin 33.2H, Mean Corpuscular Hemoglobin Concent 34.0, Red Cell Distribution Width 12.8, Platelet Count 440, Mean Platelet Volume 6.4L, Neutrophils (%) (Auto) , Lymphocytes (%) ( Auto) , Monocytes (%) (Auto) , Eosinophils (%) (Auto) , Basophils (%) (Auto) , Differential Total Cells Counted 100, Neutrophils % (Manual) 40L, Lymphocytes % (Manual) 7L, Monocytes % (Manual) 14H, Eosinophils % (Manual) 39H, Basophils % ( Manual) 0, Band Neutrophils 0, Platelet Estimate Adequate, Platelet Morphology Normal, Red Blood Cell Morphology Normal, Sodium Level 135L, Potassium Level 4.3 , Chloride Level 103, Carbon Dioxide Level 23, Anion Gap 9, Blood Urea Nitrogen 12, Creatinine 1.3, Estimat Glomerular Filtration Rate > 60, Glucose Level 113H , Calcium Level 8.4L, Total Bilirubin 10.0H, Direct Bilirubin 8.5H, Aspartate Amino Transf (AST/SGOT) 121H, Alanine Aminotransferase (ALT/SGPT) 88H, Alkaline Phosphatase 1329H, Total Protein 5.4L, Albumin 2.1L, Globulin 3.3, Albumin/ Globulin Ratio 0.6L, Phenytoin (Dilantin) Level 34.2*H Height (Feet): 5 Height (Inches): 11.00 Weight (Pounds): 148 General Appearance: lethargic EENT: normal ENT inspection Neck: normal alignment Cardiovascular: normal peripheral pulses, normal rate, regular rhythm Respiratory/Chest: chest wall non-tender, lungs clear, normal breath sounds Abdomen: normal bowel sounds, non tender, soft Extremities: normal inspection Edema: no edema noted Arm (L), no edema noted Arm (R), no edema noted Leg (L), no edema noted Leg (R), no edema noted Pedal (L), no edema noted Pedal (R), no edema noted Generalized Neurologic: motor weakness Skin: normal pigmentation, warm/dry Neri Cat DO May 05, 2018 13:27
--- NOTE | 2018-05-05 14:50 | NUR ---
*-* INSURANCE *-* ALL CLINICALS AND REVIEWS HAVE BEEN FAXED TO: YENIFER LAUGHLIN PLEASE FAX THE REVIEW/CLINICAL NO DIRECTOR OF PSYCHIATRY ASSIGNED AT THIS TIME P- [phone] F- [phone]
[2018-05-05 15:11] LABS: INR 1.3 (0.9-1.1)
[2018-05-05] MEDS ORDERED: Lidocaine 1% Plain 30 ml INJ SCH (15:30)
--- NOTE | 2018-05-05 15:58 | Pre-Procedure Note/Attestation ---
Pre-Procedure Note/Attestation Complete Prior to Procedure Planned Procedure: not applicable Procedure Narrative: Ultrasound guided liver biopsy Indications for Procedure Pre-Operative Diagnosis: Abnormal liver function Attestation I attest that I discussed the nature of the procedure; its benefits; risks and complications; and alternatives (and the risks and benefits of such alternatives ), prior to the procedure, with the patient (or the patient's legal financial service representative). I attest that, if there was a reasonable possibility of needing a blood transfusion, the patient (or the patient's legal financial service representative) was given the [facility] standardized written summary, pursuant to the [place] Blood Safety Act ([place] Health and Safety Code # 1645, as amended). I attest that I re-evaluated the patient just prior to the surgery and that there has been no change in the patient's H&P, except as documented below: Eron Huang MD May 05, 2018 15:58
--- NOTE | 2018-05-05 16:26 | Brief Operative Note ---
Immediate Post Operative Note Operative Note Pre-op Diagnosis: Abnormal liver function Procedure: US guided L lobe liver bx Post-op Diagnosis: same Surgeon: Fredrick Clark Anesthesia: local Specimen: yes - 2 18G cores Complications: none Condition: stable Fluids: none Implant(s) used?: No Erno Clark MD May 05, 2018 16:26
--- NOTE | 2018-05-05 16:49 | NUR ---
NURSE NOTES: patient back from [place] guided liver biopsy. handoff done.
--- NOTE | 2018-05-05 16:52 | Diagnostic Imaging Report ---
Indication: Abnormal liver function tests, pain Technique: Informed consent obtained prior to commencement of the procedure. Risks, including but not limited to hemorrhage, infection, sampling error discussed with patient, all questions answered. He indicated his willingness to proceed. Ultrasound used to localize the optimal puncture site in the left hepatic lobe. Sterile prepping and draping. Local anesthesia with one percent lidocaine. Under real-time ultrasound guidance, total two needle passes made into the left hepatic lobe using 18-gauge automated biopsy gun. Specimens placed in formalin, submitted to pathology. The patient tolerated the procedure well, without immediate complication. Comparison: none. Findings: Intraprocedural images confirm needle placement within the left hepatic lobe Impression: Apparently successful ultrasound-guided liver biopsy, for parenchymal disease, as described. Final pathology pending
--- NOTE | 2018-05-05 19:15 | NUR ---
NURSE NOTES: Pt received sleeping in semi fowlers position. Seizure precautions in place. Side rails padded. Side rails up x2, bed alarm on. In no acute distress. Respirations even and unlabored. Appears drowsy but arousable to name. Call light in reach, bed is locked in lowest position. will continue to monitor
--- NOTE | 2018-05-05 19:19 | NUR ---
HAND-OFF: Report given to Melvina.
[2018-05-05] MEDS ORDERED: Tubing IV Secondary IV ONE (20:21)
--- NOTE | 2018-05-05 23:33 | NUR ---
NURSE NOTES: Patient's sister Tash is at bedside. Visited with sister. She verbalized that she was going to "get him up and get him to walk." I educated family member, Tash about the plan of care- that PT is ordered 5 times a week, that patient requires maximal assistance to get up. I educated her that patient is a high fall risk and to not ambulate the patient until PT sees the patient. Pt is on bedrest at this time for his safety. Tash, pt's older sister relayed that she is concerned as she thinks that since the seizure sustained and the brain surgery the patient underwent in 02/2018 that the patient is declining and "going backwards." Patient's sister acknowledged that PT will be seeing the patient again on Tuesday and I advised her to come that day to be there and encourage patient's participation in care. She acknowledged she would be there to support and encourage him. I reiterated the need to keep patient on bedrest until PT sees the patient to ensure safety in mobility with the necessary support required to safely engage in treatment. She verbalized understanding
[2018-05-06] VITALS: BP 131/80
[2018-05-06 04:00] VITALS: BP 136/86
[2018-05-06] MEDS: Meropenem 1 GM in NS 55 ML IVPB SCH ×3 (05:35→20:24)
[2018-05-06] MEDS: HydrALAZINE 25mg tab ORAL SCH ×3 (05:38→20:25)
[2018-05-06 06:36] LABS: HEMOGLOBIN 11.3 G/DL (14.2-18.0); MEAN CORPUSCULAR VOLUME 99 FL (80-99); PLATELET COUNT 474 K/UL (150-450); RED BLOOD COUNT 3.45 M/UL (4.70-6.10); RED CELL DISTRIBUTION WIDTH 13.3 % (11.6-14.8); WHITE BLOOD COUNT 9.9 K/UL (4.8-10.8)
[2018-05-06 07:06] LABS: ALANINE AMINOTRANSFERASE 92 U/L (12-78); ALBUMIN 1.8 G/DL (3.4-5.0); ALBUMIN/GLOBULIN RATIO 0.5 (1.0-2.7); ALKALINE PHOSPHATASE 1392 U/L (46-116); ANION GAP 7 mmol/L (5-15); ASPARTATE AMINO TRANSFERASE 113 U/L (15-37); BLOOD UREA NITROGEN 11 mg/dL (7-18); CALCIUM 8.3 MG/DL (8.5-10.1); CARBON DIOXIDE 24 MMOL/L (21-32); CHLORIDE 103 MMOL/L (98-107); CREATININE 1.4 MG/DL (0.55-1.30); POTASSIUM 4.6 MMOL/L (3.5-5.1); SODIUM 134 MMOL/L (136-145)
[2018-05-06 07:10] LABS: BILIRUBIN,DIRECT 8.5 MG/DL (0.0-0.3)
--- NOTE | 2018-05-06 07:19 | NUR ---
HAND-OFF: Report given to KEIKO Hobson
[2018-05-06 08:00] VITALS: BP 136/86
--- NOTE | 2018-05-06 08:00 | NUR ---
NURSE NOTES: Received report from BELEN Hein. Patient in bed awake and able to verbalize needs. showing no signs of acute distress. Respiration even and non labored on room air. No SOB. sister, Paula @ bedside. Bed in lowest position. Call light within reach. All needs attended and met. Will continue to monitor.
[2018-05-06] MEDS: Metoclopramide 10mg/2ml Inj IVP PRN ×2 (08:07→15:40)
--- NOTE | 2018-05-06 08:25 | General Progress Note ---
Assessment/Plan Problem List: (1) Head ache ICD Codes: R51 - Headache SNOMED: 64772772 (2) Weak ICD Codes: R53.1 - Weakness SNOMED: 59555032 (3) HTN (hypertension) ICD Codes: I10 - Essential (primary) hypertension SNOMED: 57911945 (4) Malnutrition ICD Codes: E46 - Unspecified protein-calorie malnutrition SNOMED: 45782300 (5) Epilepsy ICD Codes: G40.909 - Epilepsy, unspecified, not intractable, without status epilepticus SNOMED: 78936817 (6) Intractable pain ICD Codes: R52 - Pain, unspecified SNOMED: 37443428 (7) Phenytoin toxicity ICD Codes: T42.0X1A - Poisoning by hydantoin derivatives, accidental ( unintentional), initial encounter SNOMED: 98891583 Status: unchanged Assessment/Plan pt diet pain control neuro psyc eval abx prn cbc bmp am dc plan if clear Subjective Allergies: Coded Allergies: GADOBUTROL (Verified Allergy, Intermediate, 04/30/18) PHENYTOIN (Verified Allergy, Unknown, 05/03/18) Drug hypersensitivity syndrome; hepatotoxicity Uncoded Allergies: CONTRAST (Allergy, Mild, Rash, 05/03/18) questionable if it was due to contrast; patient at the time (Mar-April 2018) also had dilantin reaction (probably rash was due to dilantin) All Systems: reviewed and negative except above Subjective sleepy c/o some head ache Objective Last 24 Hour Vital Signs Date Time Temp Pulse Resp B/P (MAP) Pulse Ox O2 Delivery O2 Flow Rate FiO2 05/06/18 05:38 136/86 05/06/18 04:00 98.6 102 20 136/86 (103) 98 05/06/18 00:00 99.5 105 20 131/80 (97) 100 05/05/18 21:20 148/88 05/05/18 21:00 Room Air 05/05/18 19:58 97.9 102 20 148/88 (108) 100 05/05/18 16:10 100 22 126/82 (97) 100 05/05/18 16:05 98 22 130/82 (98) 100 05/05/18 15:37 98 18 05/05/18 14:00 131/83 05/05/18 11:42 98.2 100 20 131/83 (99) 98 3/8/19 10:28 98.8 05/05/18 09:00 Room Air 05/05/18 09:00 101 109/64 Intake and Output 05/05/18 05/06/18 19:00 07:00 Intake Total 1550 ml 1310 ml Output Total 1100 ml 575 ml Balance 450 ml 735 ml Intake Oral 240 ml IV Total 1310 ml 1310 ml Output Urine Total 1100 ml 575 ml # Voids 1 Laboratory Tests 05/05/18 14:30: Prothrombin Time 13.4H, Prothromb Time International Ratio 1.3H, Activated Partial Thromboplast Time 40H 05/06/18 04:55: White Blood Count 9.9, Red Blood Count 3.45L, Hemoglobin 11.3L, Hematocrit 34.0L , Mean Corpuscular Volume 99, Mean Corpuscular Hemoglobin 32.7H, Mean Corpuscular Hemoglobin Concent 33.2, Red Cell Distribution Width 13.3, Platelet Count 474H, Mean Platelet Volume 6.0L, Neutrophils (%) (Auto) , Lymphocytes (%) (Auto) , Monocytes (%) (Auto) , Eosinophils (%) (Auto) , Basophils (%) (Auto) , Sodium Level 134L, Potassium Level 4.6, Chloride Level 103, Carbon Dioxide Level 24, Anion Gap 7, Blood Urea Nitrogen 11, Creatinine 1.4H, Estimat Glomerular Filtration Rate > 60, Glucose Level 113H, Calcium Level 8.3L, Total Bilirubin 10.0H, Direct Bilirubin 8.5H, Aspartate Amino Transf (AST/SGOT) 113H, Alanine Aminotransferase (ALT/SGPT) 92H, Alkaline Phosphatase 1392H, Total Protein 5.4L, Albumin 1.8L, Globulin 3.6, Albumin/Globulin Ratio 0.5L Height (Feet): 5 Height (Inches): 11.00 Weight (Pounds): 148 General Appearance: lethargic EENT: normal ENT inspection Neck: normal alignment Cardiovascular: normal peripheral pulses, normal rate, regular rhythm Respiratory/Chest: chest wall non-tender, lungs clear, normal breath sounds Abdomen: normal bowel sounds, non tender, no organomegaly Extremities: normal inspection Edema: no edema noted Arm (L), no edema noted Arm (R), no edema noted Leg (L), no edema noted Leg (R), no edema noted Pedal (L), no edema noted Pedal (R), no edema noted Generalized Neurologic: motor weakness Skin: normal pigmentation, warm/dry Neri Cat DO May 06, 2018 08:25
[2018-05-06] MEDS: Lactulose 10gm/15ml UDC ORAL SCH ×3 (09:06→17:13)
[2018-05-06] MEDS: Heparin 5000 units/ml inj SUBQ SCH ×2 (09:10→20:28)
--- NOTE | 2018-05-06 09:27 | Infectious Diseases Prog Note ---
Assessment/Plan Assessment/Plan Sepsis; improving- likely due to probable acute acalculous cholecystitis Fever , SP ?PNA -CXR: Mildly increased interstitial markings. This is nonspecific and cannot exclude a mild bronchitis or interstitial pneumonitis. No focal consolidation. -wound cx craniotomy incision: MSSA (wound doesnt appaer infected) -bcx NTD -influenza sc neg Mild leukocytosis,SP Elevated LFTs, improving (probably due to both cholecystitis and toxic phenytoin levels); increasing Elev alk and Leno )ALP >> AST, ALT); worsening- Probasble Acute acalculous cholecystitis -HIDA scan: Poor hepatic tracer uptake, no biliary excretion. Findings most likely represents severe hepatocellular disease. Findings are nondiagnostic as regards cystic duct or common bile duct patency -MRCP:No definite gallstones. However, there is gallbladder wall edema and pericholecystic fluid. Could indicate acalculous acute cholecystitis or cholecystitis due to an occult calculus. Alternatively, this could represent reactive changes secondary to adjacent hepatocellular inflammation. Consider hepatobiliary nuclear scan if there is high clinical suspicion for acute cholecystitis. Negative for biliary ductal dilatation. Periportal edema. This can be seen acute hepatitis or right heart failure, among other possibilities -Abd US: No acute findings. 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 Please correlate with the surgical history. Some enhancement of the dura along the anterior interhemispheric fissure and within the surgical bed is not unexpected given the recent surgery. However, the possibility of residual neoplasm is not excludable. There are no reference studies to compare to the preoperative MRI available. Other notable postsurgical finding includes a small fluid collection within the surgical bed deep to the bifrontal craniotomy flap and mild edema within the frontal lobes -CT brain wo: Postsurgical changes associated with relatively recent bifrontal craniotomy likely resection of a mass in the area of the interhemispheric fissure. 6 mm thick mixed attenuation extra-axial blood noted within the surgical bed. Please correlate with the operative report and comparison with prior studies is strongly recommended. -ESR 42, CRP 16.2 -HIV ag/ab neg MICHELLE (supratherapuetic vanco levels) Recent Brain tumor removal (1 month ago) seizure disorder GERD Tobacco use Drug rash-?culprit (present before antibiotics) Plan: -Continue Meropenem #6 (abx d#01/11) given ongoing fevers and leukocytosis and for probable acute acalculous cholecystitis -3/ SP IV Vancomycin #7 -/ SP Cefepime #6 -Will hold on LP for now as an alternative source of sepsis is considered -Monitor CBC/CMP, temperatures -GI, Sx f/u: plan for liver bx; ?cholecystostomy -Nuero fu: holding Phenytoin (toxic levels; also probable drug induced hypersensitize syndrome as had rash, eosinophilia and hepatoxicity) Subjective Allergies: Coded Allergies: GADOBUTROL (Verified Allergy, Intermediate, 04/30/18) PHENYTOIN (Verified Allergy, Unknown, 05/03/18) Drug hypersensitivity syndrome; hepatotoxicity Uncoded Allergies: CONTRAST (Allergy, Mild, Rash, 05/03/18) questionable if it was due to contrast; patient at the time (Mar-April 2018) also had dilantin reaction (probably rash was due to dilantin) Subjective Afebrile Leukocytosis resolved Objective Vital Signs Last 24 Hour Vital Signs Date Time Temp Pulse Resp B/P (MAP) Pulse Ox O2 Delivery O2 Flow Rate FiO2 05/06/18 09:07 104 120/78 05/06/18 05:38 136/86 05/06/18 04:00 98.6 102 20 136/86 (103) 98 05/06/18 00:00 99.5 105 20 131/80 (97) 100 05/05/18 21:20 148/88 05/05/18 21:00 Room Air 05/05/18 19:58 97.9 102 20 148/88 (108) 100 05/05/18 16:10 100 22 126/82 (97) 100 05/05/18 16:05 98 22 130/82 (98) 100 05/05/18 15:37 98 18 05/05/18 14:00 131/83 05/05/18 11:42 98.2 100 20 131/83 (99) 98 05/05/18 10:28 98.8 Height (Feet): 5 Height (Inches): 11.00 Weight (Pounds): 148 Objective GEN: NAD HEAD: craniotomy scar with some superficial ulceration on R left side- no signs of infection CARDIOVASCULAR: RRR, No murmur. LUNGS: CTAB, No W. ABDOMEN: Bowel sounds positive. Nontender. Nondistended. Laboratory Tests Test 05/05/18 14:30 05/06/18 04:55 Prothrombin Time 13.4 SEC (9.30-11.50) H Prothromb Time International Ratio 1.3 (0.9-1.1) H Activated Partial Thromboplast Time 40 SEC (23-33) H White Blood Count 9.9 K/UL (4.8-10.8) Red Blood Count 3.45 M/UL (4.70-6.10) L Hemoglobin 11.3 G/DL (14.2-18.0) L Hematocrit 34.0 % (42.0-52.0) L Mean Corpuscular Volume 99 FL (80-99) Mean Corpuscular Hemoglobin 32.7 PG (27.0-31.0) H Mean Corpuscular Hemoglobin Concent 33.2 G/DL (32.0-36.0) Red Cell Distribution Width 13.3 % (11.6-14.8) Platelet Count 474 K/UL (150-450) H Mean Platelet Volume 6.0 FL (6.5-10.1) L Neutrophils (%) (Auto) % (45.0-75.0) Lymphocytes (%) (Auto) % (20.0-45.0) Monocytes (%) (Auto) % (1.0-10.0) Eosinophils (%) (Auto) % (0.0-3.0) Basophils (%) (Auto) % (0.0-2.0) Sodium Level 134 MMOL/L (136-145) L Potassium Level 4.6 MMOL/L (3.5-5.1) Chloride Level 103 MMOL/L (98-107) Carbon Dioxide Level 24 MMOL/L (21-32) Anion Gap 7 mmol/L (5-15) Blood Urea Nitrogen 11 mg/dL (7-18) Creatinine 1.4 MG/DL (0.55-1.30) H Estimat Glomerular Filtration Rate > 60 mL/min (>60) Glucose Level 113 MG/DL (74-106) H Calcium Level 8.3 MG/DL (8.5-10.1) L Total Bilirubin 10.0 MG/DL (0.2-1.0) H Direct Bilirubin 8.5 MG/DL (0.0-0.3) H Aspartate Amino Transf (AST/SGOT) 113 U/L (15-37) H Alanine Aminotransferase (ALT/SGPT) 92 U/L (12-78) H Alkaline Phosphatase 1392 U/L (46-116) H Total Protein 5.4 G/DL (6.4-8.2) L Albumin 1.8 G/DL (3.4-5.0) L Globulin 3.6 g/dL Albumin/Globulin Ratio 0.5 (1.0-2.7) L Current Medications Medications (Trade) Dose Ordered Sig/Obdulia Route PRN Reason Start Time Stop Time Status Last Admin Dose Admin Acetaminophen (Tylenol) 650 mg Q4H PRN ORAL fever 04/24/18 17:15 05/24/18 17:14 05/04/18 14:17 Al Hydroxide/Mg Hydroxide (Mylanta II) 30 ml Q6H PRN ORAL dyspepsia 04/24/18 17:15 05/24/18 17:14 Amlodipine Besylate (Norvasc) 10 mg DAILY ORAL 04/25/18 09:00 05/25/18 08:59 05/06/18 09:07 Dextrose (Dextrose 50%) 25 ml Q30M PRN IV Hypoglycemia 04/24/18 17:15 05/24/18 17:14 Dextrose (Dextrose 50%) 50 ml Q30M PRN IV Hypoglycemia 04/24/18 17:15 05/24/18 17:14 Dextrose/ Electrolytes 1,000 ml @ 120 mls/hr Q8H20M IV 05/03/18 12:30 06/02/18 12:29 05/05/18 21:21 Diphenhydramine HCl (Benadryl) 25 mg Q6H PRN IVP Itching 04/26/18 16:30 05/26/18 16:29 05/02/18 23:53 Folic Acid (Folate) 1 mg DAILY ORAL 04/25/18 12:00 05/25/18 11:59 05/06/18 09:07 Gabapentin (Neurontin) 300 mg ACBREAKFAST ORAL 05/06/18 06:30 06/05/18 06:29 05/06/18 05:37 Gabapentin (Neurontin) 300 mg BEDTIME ORAL 05/05/18 21:00 06/04/18 20:59 05/05/18 21:05 Gabapentin (Neurontin) 600 mg QPM ORAL 05/06/18 16:30 05/25/18 17:59 Heparin Sodium (Porcine) (Heparin 5000 units/ml) 5,000 units EVERY 12 HOURS SUBQ 04/24/18 21:00 05/24/18 20:59 05/06/18 09:10 Hydralazine HCl (Apresoline) 25 mg EVERY 8 HOURS ORAL 04/24/18 22:00 05/24/18 21:59 05/06/18 05:38 Lactulose (Cephulac) 10 gm THREE TIMES A DAY ORAL 04/29/18 13:30 05/29/18 13:29 05/06/18 09:06 Levetiracetam (Keppra) 500 mg EVERY 12 HOURS ORAL 04/24/18 21:00 05/24/18 20:59 05/06/18 09:07 Meropenem 1 gm/ Sodium Chloride 55 ml @ 110 mls/hr Q8HR IVPB 05/01/18 14:00 05/09/18 23:59 05/06/18 05:35 Metoclopramide HCl (Reglan) 10 mg Q8H PRN IVP Nausea & Vomiting 05/04/18 11:30 06/03/18 11:29 05/06/18 08:07 Ondansetron HCl (Zofran) 4 mg Q6H PRN IVP Nausea & Vomiting 04/24/18 17:15 05/24/18 17:14 05/05/18 07:49 Oxycodone/ Acetaminophen (Percocet 5-325) 1 tab Q4H PRN ORAL severe pain 05/04/18 17:30 05/11/18 17:29 05/05/18 21:49 Polyethylene Glycol (Miralax) 17 gm HSPRN PRN ORAL Constipation 04/24/18 17:15 05/24/18 17:14 Rifaximin (Xifaxan) 550 mg EVERY 12 HOURS ORAL 04/30/18 21:00 05/07/18 20:59 05/06/18 09:06 Oli Lindsay MD May 06, 2018 09:27
[2018-05-06] MEDS: oxyCODONE HCL/Acetaminophen 5/325mg ORAL PRN ×2 (10:39→15:44)
[2018-05-06 12:00] VITALS: BP 133/83
--- NOTE | 2018-05-06 15:00 | Surgery Progress Note ---
Surgery Progress Note Subjective Additional Comments liver biopsy completed. stable thus far. pending path. Objective Last 24 Hour Vital Signs Date Time Temp Pulse Resp B/P (MAP) Pulse Ox O2 Delivery O2 Flow Rate FiO2 05/06/18 14:30 133/83 05/06/18 12:00 98.9 105 20 133/83 (100) 98 05/06/18 11:09 98.9 05/06/18 09:07 104 120/78 05/06/18 09:00 Room Air 05/06/18 08:00 98.6 102 20 136/86 (103) 98 05/06/18 05:38 136/86 05/06/18 04:00 98.6 102 20 136/86 (103) 98 05/06/18 00:00 99.5 105 20 131/80 (97) 100 05/05/18 21:20 148/88 05/05/18 21:00 Room Air 05/05/18 19:58 97.9 102 20 148/88 (108) 100 05/05/18 16:10 100 22 126/82 (97) 100 05/05/18 16:05 98 22 130/82 (98) 100 05/05/18 15:37 98 18 I&O Intake and Output 05/05/18 05/06/18 19:00 07:00 Intake Total 1550 ml 1310 ml Output Total 1100 ml 575 ml Balance 450 ml 735 ml Intake Oral 240 ml IV Total 1310 ml 1310 ml Output Urine Total 1100 ml 575 ml # Voids 1 Dressing: dry Wound: clean Drains: other Cardiovascular: RSR Respiratory: clear Abdomen: soft, non-tender, non-distended Extremities: no cyanosis Laboratory Tests Test 05/06/18 04:55 White Blood Count 9.9 K/UL (4.8-10.8) Red Blood Count 3.45 M/UL (4.70-6.10) L Hemoglobin 11.3 G/DL (14.2-18.0) L Hematocrit 34.0 % (42.0-52.0) L Mean Corpuscular Volume 99 FL (80-99) Mean Corpuscular Hemoglobin 32.7 PG (27.0-31.0) H Mean Corpuscular Hemoglobin Concent 33.2 G/DL (32.0-36.0) Red Cell Distribution Width 13.3 % (11.6-14.8) Platelet Count 474 K/UL (150-450) H Mean Platelet Volume 6.0 FL (6.5-10.1) L Neutrophils (%) (Auto) % (45.0-75.0) Lymphocytes (%) (Auto) % (20.0-45.0) Monocytes (%) (Auto) % (1.0-10.0) Eosinophils (%) (Auto) % (0.0-3.0) Basophils (%) (Auto) % (0.0-2.0) Sodium Level 134 MMOL/L (136-145) L Potassium Level 4.6 MMOL/L (3.5-5.1) Chloride Level 103 MMOL/L (98-107) Carbon Dioxide Level 24 MMOL/L (21-32) Anion Gap 7 mmol/L (5-15) Blood Urea Nitrogen 11 mg/dL (7-18) Creatinine 1.4 MG/DL (0.55-1.30) H Estimat Glomerular Filtration Rate > 60 mL/min (>60) Glucose Level 113 MG/DL (74-106) H Calcium Level 8.3 MG/DL (8.5-10.1) L Total Bilirubin 10.0 MG/DL (0.2-1.0) H Direct Bilirubin 8.5 MG/DL (0.0-0.3) H Aspartate Amino Transf (AST/SGOT) 113 U/L (15-37) H Alanine Aminotransferase (ALT/SGPT) 92 U/L (12-78) H Alkaline Phosphatase 1392 U/L (46-116) H Total Protein 5.4 G/DL (6.4-8.2) L Albumin 1.8 G/DL (3.4-5.0) L Globulin 3.6 g/dL Albumin/Globulin Ratio 0.5 (1.0-2.7) L Plan Problems: (1) Transaminitis Assessment & Plan: reviewed chart discussed with GI likely due to drug toxicity. pending liver biopsy results (2) Elevated alkaline phosphatase level (3) Intractable pain Assessment & Plan: US noted - The liver is unremarkable. The gallbladder is unremarkable. The demonstrated part of the pancreas, aorta and IVC show no abnormalities. Both kidneys appear unremarkable. The spleen is normal in size. There is no biliary ductal dilatation identified. Doppler evaluation of the main portal vein shows patency. There is no ascites. No hydronephrosis seen. CBD is 3 mm. MRI noted - No definite gallstones. However, there is gallbladder wall edema and pericholecystic fluid. Could indicate acalculous acute cholecystitis or cholecystitis due to an occult calculus. Alternatively, this could represent reactive changes secondary to adjacent hepatocellular inflammation. Consider hepatobiliary nuclear scan if there is high clinical suspicion for acute cholecystitis. Negative for biliary ductal dilatation. HIDA noted - Poor hepatic tracer uptake, no biliary excretion. Findings most likely represents severe hepatocellular disease. Findings are nondiagnostic as regards cystic duct or common bile duct patency possible acute acalculous cholecystitis. exam difficult given history labs with resolved leukocytosis lft's abnormal from drug toxicity - levels still elevated. trend labs okay for diet pending liver biopsy results will follow clinically (4) Sepsis Jamin Lynch May 06, 2018 15:00
--- NOTE | 2018-05-06 15:29 | NUR ---
CASE MANAGEMENT: REVIEW SI: TRANSAMINITIS . BRAIN TUMOR LIVER BIOPSY 05/05 T 98.9 HR 105 RR 20 BP 133/83 SAT 98% ROOM AIR T BILI 10.0 D BILI 8.5 AST 113 ALT 92 ALK PHOS 1392 IS: RIFAXIMIN PO Q12HR LACTULOSE PO TID MEROPENEM IV Q8HR FOLIC ACID PO QD D5 NS IVF @ 120ML/HR MED/SURG STATUS DCP: PATIENT IS FROM [facility]
[2018-05-06 16:00] VITALS: BP 125/72
--- NOTE | 2018-05-06 16:14 | NUR ---
NURSE NOTES: patient able to walk to the bathroom with assist. moved his bowel and advance his diet to soft diet. and tolerating well. will cont to monitor.
--- NOTE | 2018-05-06 16:16 | Electroencephalogram ---
DATE OF PROCEDURE: 05/02/2018 REQUESTING PHYSICIANS: Neri Cat D.O. & Korey Parada M.D. HISTORY: This EEG was performed on a 57-year-old gentleman, with a history of a seizure disorder associated with a bilateral frontal craniotomy for resection of a meningioma. The patient was recently hospitalized for an alteration in his mental state and thus this EEG was performed to evaluate the patient for the degree and type of cerebral dysfunction and to exclude ongoing ictal or interictal phenomena. TECHNICAL NOTE: This EEG was performed on a [employer] with electrodes placed on the scalp according to the International 10-20 system. [id number] and [id number] montages were used. The EEG was technically satisfactory and was performed in the awake and drowsy states. OBSERVATIONS: In the best awake state, the background activity consisted of 5-6 Hz theta activity. Bilateral frontotemporal polymorphic delta activity was also seen. Drowsiness was characterized by slowing of the background in the 4-5 Hz theta range with intermixed 1.5-2 Hz delta activity. In addition, the amount of bilateral frontotemporal polymorphic delta activity had increased. No epileptiform discharges were seen. IMPRESSION: This is an abnormal EEG characterized by: 1. Slowing of the background in the 5-6 Hz theta range in the best awake state. 2. Presence of bilateral frontotemporal polymorphic delta activity. COMMENT: This study is consistent with: 1. An encephalopathy of a moderate degree. 2. Bilateral frontotemporal dysfunction. Clinical correlation is recommended. Dax Black M.D., M.S.P.H. DR: KEN JOB#: [id number] SEJAL
--- NOTE | 2018-05-06 19:26 | NUR ---
HAND-OFF: Report given to Kalia
[2018-05-06 20:00] VITALS: BP 131/77
--- NOTE | 2018-05-06 21:00 | NUR ---
NURSE NOTES: Pt is in bed, awake and verbal. No acute distress noted. Pt has nausea and vomiting. Pt was given Zofran 4mgas ordered PRN. No vomiting after that. Pt's family is by bedside. No BM, unable to collect stool for OB. D5 NS with 20mEq KCl running at 120ml/hr. According to family, pt ambulated to bathroom by self. Family would like to talk to the doctor regarding pt's progression. Bed low in position,side rails up and call light within reach. Pt will be monitored.
--- NOTE | 2018-05-06 22:53 | General Progress Note ---
Assessment/Plan Assessment/Plan Assessment/Plan Problems: (1) Weak ICD Codes: R53.1 - Weakness SNOMED: 29832474 (2) Malnutrition ICD Codes: E46 - Unspecified protein-calorie malnutrition SNOMED: 79039978 (3) Brain tumor ICD Codes: D49.6 - Neoplasm of unspecified behavior of brain SNOMED: 285238120 (4) Transaminitis ICD Codes: R74.0 - Nonspecific elevation of levels of transaminase and lactic acid dehydrogenase [LDH] SNOMED: 155133376, 033790074 (5) Anemia ICD Codes: D64.9 - Anemia, unspecified SNOMED: 710184617 (6) Intractable pain ICD Codes: R52 - Pain, unspecified SNOMED: 04527399 (7) Phenytoin toxicity ICD Codes: T42.0X1A - Poisoning by hydantoin derivatives, accidental ( unintentional), initial encounter SNOMED: 63453037 Status: progressing Assessment/Plan Head CT reviewed lipase normal abdominal US reviewed, negative follow Hepatitis panel, negative MRCP reviewed, negative for common bile duct dilation. Possible cholecystitis. AMA, REHAN and SMA negative Phenytoin toxicity >> DC Dilantin Advance diet OB stool r/o GI bleed monitor H&H, prn transfusions bowel regime ppi lactulose + xifaxan Trend LFTs Outpatient GI procedures Subjective Allergies: Coded Allergies: GADOBUTROL (Verified Allergy, Intermediate, 04/30/18) PHENYTOIN (Verified Allergy, Unknown, 05/03/18) Drug hypersensitivity syndrome; hepatotoxicity Uncoded Allergies: CONTRAST (Allergy, Mild, Rash, 05/03/18) questionable if it was due to contrast; patient at the time (Mar-April 2018) also had dilantin reaction (probably rash was due to dilantin) Subjective minimally interactive c/o nausea and poor appetite d/w sister at bedside Objective Last 24 Hour Vital Signs Date Time Temp Pulse Resp B/P (MAP) Pulse Ox O2 Delivery O2 Flow Rate FiO2 05/06/18 20:25 131/77 05/06/18 20:00 97.7 100 20 131/77 (95) 99 05/06/18 16:14 98.9 05/06/18 16:00 98.3 101 20 125/72 (89) 98 05/06/18 14:30 133/83 05/06/18 12:00 98.9 105 20 133/83 (100) 98 05/06/18 09:07 104 120/78 05/06/18 09:00 Room Air 05/06/18 08:00 98.6 102 20 136/86 (103) 98 05/06/18 05:38 136/86 05/06/18 04:00 98.6 102 20 136/86 (103) 98 05/06/18 00:00 99.5 105 20 131/80 (97) 100 Intake and Output 05/05/18 05/06/18 19:00 07:00 Intake Total 1550 ml 1310 ml Output Total 1100 ml 575 ml Balance 450 ml 735 ml Intake Oral 240 ml IV Total 1310 ml 1310 ml Output Urine Total 1100 ml 575 ml # Voids 1 Laboratory Tests 05/06/18 04:55: White Blood Count 9.9, Red Blood Count 3.45L, Hemoglobin 11.3L, Hematocrit 34.0L , Mean Corpuscular Volume 99, Mean Corpuscular Hemoglobin 32.7H, Mean Corpuscular Hemoglobin Concent 33.2, Red Cell Distribution Width 13.3, Platelet Count 474H, Mean Platelet Volume 6.0L, Neutrophils (%) (Auto) , Lymphocytes (%) (Auto) , Monocytes (%) (Auto) , Eosinophils (%) (Auto) , Basophils (%) (Auto) , Sodium Level 134L, Potassium Level 4.6, Chloride Level 103, Carbon Dioxide Level 24, Anion Gap 7, Blood Urea Nitrogen 11, Creatinine 1.4H, Estimat Glomerular Filtration Rate > 60, Glucose Level 113H, Calcium Level 8.3L, Total Bilirubin 10.0H, Direct Bilirubin 8.5H, Aspartate Amino Transf (AST/SGOT) 113H, Alanine Aminotransferase (ALT/SGPT) 92H, Alkaline Phosphatase 1392H, Total Protein 5.4L, Albumin 1.8L, Globulin 3.6, Albumin/Globulin Ratio 0.5L Height (Feet): 5 Height (Inches): 11.00 Weight (Pounds): 148 Objective WDWN AA man NCAT supple CTA RR Abd tympanitic no edema Reagan Martinez MD May 06, 2018 22:53
[2018-05-07] VITALS: BP 141/84
[2018-05-07 04:00] VITALS: BP 127/76
[2018-05-07] MEDS: Metoclopramide 10mg/2ml Inj IVP PRN ×2 (04:10→12:11)
[2018-05-07] MEDS: oxyCODONE HCL/Acetaminophen 5/325mg ORAL PRN ×4 (04:11→16:54)
--- NOTE | 2018-05-07 05:00 | NUR ---
NURSE NOTES: Pt is in bed, asleep. No acute distress noted. Family by bedside. Pt still feels nauseated, Zofran helped. Vitals stable. Pt's sister by bedside.
--- NOTE | 2018-05-07 06:10 | NUR ---
HAND-OFF: Report given to Eleanor Valdes RN.
[2018-05-07] MEDS: Meropenem 1 GM in NS 55 ML IVPB SCH ×3 (06:42→21:53)
[2018-05-07] MEDS: HydrALAZINE 25mg tab ORAL SCH ×3 (06:43→21:54)
[2018-05-07 07:51] LABS: ANION GAP 7 mmol/L (5-15); BLOOD UREA NITROGEN 12 mg/dL (7-18); CALCIUM 8.1 MG/DL (8.5-10.1); CARBON DIOXIDE 25 MMOL/L (21-32); CHLORIDE 101 MMOL/L (98-107); CREATININE 1.3 MG/DL (0.55-1.30); POTASSIUM 5.4 MMOL/L (3.5-5.1); SODIUM 133 MMOL/L (136-145)
[2018-05-07 08:00] VITALS: BP 129/77
[2018-05-07 08:00] LABS: HEMATOCRIT 31.1 % (42.0-52.0); HEMOGLOBIN 10.5 G/DL (14.2-18.0); MEAN CORPUSCULAR VOLUME 98 FL (80-99); PLATELET COUNT 516 K/UL (150-450); RED BLOOD COUNT 3.16 M/UL (4.70-6.10); RED CELL DISTRIBUTION WIDTH 13.1 % (11.6-14.8); WHITE BLOOD COUNT 10.8 K/UL (4.8-10.8)
--- NOTE | 2018-05-07 08:01 | NUR ---
NURSE NOTES: Report received from BELEN Motta. Pt in bed, awake, talkative, no complaints of pain, bed in lowest position, call light within reach.
--- NOTE | 2018-05-07 08:13 | NUR ---
NURSE NOTES: Notified Dr. Armas Na 133, K 5.4, Ca 8.1, ammonia 48.1. Pt taking Lactulose, asked about ordering for K level
--- NOTE | 2018-05-07 08:36 | General Progress Note ---
Assessment/Plan Problem List: (1) Head ache ICD Codes: R51 - Headache SNOMED: 29489196 (2) Weak ICD Codes: R53.1 - Weakness SNOMED: 79443640 (3) HTN (hypertension) ICD Codes: I10 - Essential (primary) hypertension SNOMED: 93509292 (4) Malnutrition ICD Codes: E46 - Unspecified protein-calorie malnutrition SNOMED: 63698049 (5) Epilepsy ICD Codes: G40.909 - Epilepsy, unspecified, not intractable, without status epilepticus SNOMED: 60053012 (6) Intractable pain ICD Codes: R52 - Pain, unspecified SNOMED: 73545537 (7) Phenytoin toxicity ICD Codes: T42.0X1A - Poisoning by hydantoin derivatives, accidental ( unintentional), initial encounter SNOMED: 14277563 Status: unchanged Assessment/Plan pt diet pain control neuro psyc eval abx prn cbc bmp am dc plan if clear Subjective Constitutional: Reports: weakness Allergies: Coded Allergies: GADOBUTROL (Verified Allergy, Intermediate, 04/30/18) PHENYTOIN (Verified Allergy, Unknown, 05/03/18) Drug hypersensitivity syndrome; hepatotoxicity Uncoded Allergies: CONTRAST (Allergy, Mild, Rash, 05/03/18) questionable if it was due to contrast; patient at the time (Mar-April 2018) also had dilantin reaction (probably rash was due to dilantin) All Systems: reviewed and negative except above Subjective sleepy calm Objective Last 24 Hour Vital Signs Date Time Temp Pulse Resp B/P (MAP) Pulse Ox O2 Delivery O2 Flow Rate FiO2 05/07/18 06:43 127/76 05/07/18 04:00 98.8 93 18 127/76 (93) 96 05/07/18 00:00 98.5 106 17 141/84 (103) 96 05/06/18 21:00 Room Air 05/06/18 20:25 131/77 05/06/18 20:00 97.7 100 20 131/77 (95) 99 05/06/18 16:14 98.9 05/06/18 16:00 98.3 101 20 125/72 (89) 98 05/06/18 14:30 133/83 05/06/18 12:00 98.9 105 20 133/83 (100) 98 05/06/18 09:07 104 120/78 3/9/19 09:00 Room Air Intake and Output 05/06/18 05/07/18 18:59 06:59 Intake Total 830 ml 1435 ml Output Total 700 ml Balance 830 ml 735 ml Intake Oral 300 ml IV Total 830 ml 1135 ml Output Urine Total 700 ml # Voids 2 Laboratory Tests 05/07/18 05:30: White Blood Count 10.8, Red Blood Count 3.16L, Hemoglobin 10.5L, Hematocrit 31.1L, Mean Corpuscular Volume 98, Mean Corpuscular Hemoglobin 33.2H, Mean Corpuscular Hemoglobin Concent 33.8, Red Cell Distribution Width 13.1, Platelet Count 516H, Mean Platelet Volume 5.9L, Neutrophils (%) (Auto) , Lymphocytes (%) (Auto) , Monocytes (%) (Auto) , Eosinophils (%) (Auto) , Basophils (%) (Auto) , Neutrophils % (Manual) [Pending], Lymphocytes % (Manual) [Pending], Platelet Estimate [Pending], Platelet Morphology [Pending], Sodium Level 133L, Potassium Level 5.4H, Chloride Level 101, Carbon Dioxide Level 25, Anion Gap 7, Blood Urea Nitrogen 12, Creatinine 1.3, Estimat Glomerular Filtration Rate > 60, Glucose Level 119H, Calcium Level 8.1L, Ammonia 48H, Phenytoin (Dilantin) Level 29.6H Height (Feet): 5 Height (Inches): 11.00 Weight (Pounds): 148 General Appearance: lethargic EENT: normal ENT inspection Neck: normal alignment Cardiovascular: normal peripheral pulses, normal rate, regular rhythm Respiratory/Chest: chest wall non-tender, lungs clear, normal breath sounds Abdomen: normal bowel sounds, non tender, soft Extremities: normal inspection Edema: no edema noted Arm (L), no edema noted Arm (R), no edema noted Leg (L), no edema noted Leg (R), no edema noted Pedal (L), no edema noted Pedal (R), no edema noted Generalized Neurologic: motor weakness Skin: normal pigmentation, warm/dry Neri Cat DO May 07, 2018 08:36
[2018-05-07] MEDS: Lactulose 10gm/15ml UDC ORAL SCH ×3 (08:44→16:54)
[2018-05-07] MEDS: Heparin 5000 units/ml inj SUBQ SCH ×2 (08:49→21:55)
--- NOTE | 2018-05-07 10:05 | General Progress Note ---
Assessment/Plan Assessment/Plan (1) Headache (2) Brain neoplasm s/p craniotomy and resection Patient to be continued on Neurontin and Percocet. D/w Dr. Delarosa and he concurred. Subjective Date patient seen: May 07, 2018 Time patient seen: 09:40 - am Allergies: Coded Allergies: GADOBUTROL (Verified Allergy, Intermediate, 04/30/18) PHENYTOIN (Verified Allergy, Unknown, 05/03/18) Drug hypersensitivity syndrome; hepatotoxicity Uncoded Allergies: CONTRAST (Allergy, Mild, Rash, 05/03/18) questionable if it was due to contrast; patient at the time (April 2018) also had dilantin reaction (probably rash was due to dilantin) Subjective REVIEW OF SYSTEMS: Denies rash, fever, chills, sweating, dizziness, drowsiness, blurred vision, sore throat, or change in his weight. No shortness of breath, chest pain, palpitations, or cough. No nausea, vomiting, diarrhea, or blood in stool or urine. He complains of headaches. SUBJECTIVE: Patient has been tolerating the pain on the Percocet. He has no new complaints. Objective Last 24 Hour Vital Signs Date Time Temp Pulse Resp B/P (MAP) Pulse Ox O2 Delivery O2 Flow Rate FiO2 05/07/18 09:00 Room Air Room Air 05/07/18 08:44 94 129/77 05/07/18 08:00 97.0 94 22 129/77 (94) 99 05/07/18 06:43 127/76 05/07/18 04:00 98.8 93 18 127/76 (93) 96 05/07/18 00:00 98.5 106 17 141/84 (103) 96 05/06/18 21:00 Room Air 05/06/18 20:25 131/77 05/06/18 20:00 97.7 100 20 131/77 (95) 99 05/06/18 16:14 98.9 05/06/18 16:00 98.3 101 20 125/72 (89) 98 05/06/18 14:30 133/83 05/06/18 12:00 98.9 105 20 133/83 (100) 98 Intake and Output 05/06/18 05/07/18 19:00 07:00 Intake Total 830 ml 1435 ml Output Total 700 ml Balance 830 ml 735 ml Intake Oral 300 ml IV Total 830 ml 1135 ml Output Urine Total 700 ml # Voids 2 Laboratory Tests 05/07/18 05:30: White Blood Count 10.8, Red Blood Count 3.16L, Hemoglobin 10.5L, Hematocrit 31.1L, Mean Corpuscular Volume 98, Mean Corpuscular Hemoglobin 33.2H, Mean Corpuscular Hemoglobin Concent 33.8, Red Cell Distribution Width 13.1, Platelet Count 516H, Mean Platelet Volume 5.9L, Neutrophils (%) (Auto) , Lymphocytes (%) (Auto) , Monocytes (%) (Auto) , Eosinophils (%) (Auto) , Basophils (%) (Auto) , Neutrophils % (Manual) [Pending], Lymphocytes % (Manual) [Pending], Platelet Estimate [Pending], Platelet Morphology [Pending], Sodium Level 133L, Potassium Level 5.4H, Chloride Level 101, Carbon Dioxide Level 25, Anion Gap 7, Blood Urea Nitrogen 12, Creatinine 1.3, Estimat Glomerular Filtration Rate > 60, Glucose Level 119H, Calcium Level 8.1L, Ammonia 48H, Phenytoin (Dilantin) Level 29.6H Height (Feet): 5 Height (Inches): 11.00 Weight (Pounds): 148 Objective GENERAL: Alert, awake, and oriented. LUNGS: Clear bilaterally. HEART: S1 and S2, regular. ABDOMEN: Soft and nontender. EXTREMITIES: No cyanosis. No clubbing. No edema. NEURO: No changes. Albert Hoyos May 07, 2018 10:05
--- NOTE | 2018-05-07 11:29 | NUR ---
NURSE NOTES: Notified Dr. Emory Laughlin 5.4, asked about stopping or changing IVF. Notified about Na 133, Ca 8.1 and ammonia level 48.1
[2018-05-07 12:48] VITALS: BP 139/77
--- NOTE | 2018-05-07 15:25 | Surgery Progress Note ---
Surgery Progress Note Subjective Additional Comments no acute events. Objective Last 24 Hour Vital Signs Date Time Temp Pulse Resp B/P (MAP) Pulse Ox O2 Delivery O2 Flow Rate FiO2 05/07/18 14:24 139/77 05/07/18 13:22 98.2 05/07/18 12:48 98.2 102 24 139/77 (97) 98 05/07/18 12:41 98.2 05/07/18 09:00 Room Air Room Air 05/07/18 08:44 94 129/77 05/07/18 08:00 97.0 94 22 129/77 (94) 99 05/07/18 06:43 127/76 05/07/18 04:00 98.8 93 18 127/76 (93) 96 05/07/18 00:00 98.5 106 17 141/84 (103) 96 05/06/18 21:00 Room Air 05/06/18 20:25 131/77 05/06/18 20:00 97.7 100 20 131/77 (95) 99 05/06/18 16:00 98.3 101 20 125/72 (89) 98 I&O Intake and Output 05/06/18 05/07/18 19:00 07:00 Intake Total 830 ml 1435 ml Output Total 700 ml Balance 830 ml 735 ml Intake Oral 300 ml IV Total 830 ml 1135 ml Output Urine Total 700 ml # Voids 2 Dressing: other Wound: other Drains: none Cardiovascular: RSR Respiratory: clear Abdomen: soft, non-tender, decreased bowel sounds Extremities: no cyanosis Laboratory Tests Test 05/07/18 05:30 White Blood Count 10.8 K/UL (4.8-10.8) Red Blood Count 3.16 M/UL (4.70-6.10) L Hemoglobin 10.5 G/DL (14.2-18.0) L Hematocrit 31.1 % (42.0-52.0) L Mean Corpuscular Volume 98 FL (80-99) Mean Corpuscular Hemoglobin 33.2 PG (27.0-31.0) H Mean Corpuscular Hemoglobin Concent 33.8 G/DL (32.0-36.0) Red Cell Distribution Width 13.1 % (11.6-14.8) Platelet Count 516 K/UL (150-450) H Mean Platelet Volume 5.9 FL (6.5-10.1) L Neutrophils (%) (Auto) % (45.0-75.0) Lymphocytes (%) (Auto) % (20.0-45.0) Monocytes (%) (Auto) % (1.0-10.0) Eosinophils (%) (Auto) % (0.0-3.0) Basophils (%) (Auto) % (0.0-2.0) Differential Total Cells Counted 100 Neutrophils % (Manual) 44 % (45-75) L Lymphocytes % (Manual) 12 % (20-45) L Monocytes % (Manual) 10 % (1-10) Eosinophils % (Manual) 34 % (0-3) H Basophils % (Manual) 0 % (0-2) Band Neutrophils 0 % (0-8) Platelet Estimate Increased H Platelet Morphology Normal Sodium Level 133 MMOL/L (136-145) L Potassium Level 5.4 MMOL/L (3.5-5.1) H Chloride Level 101 MMOL/L (98-107) Carbon Dioxide Level 25 MMOL/L (21-32) Anion Gap 7 mmol/L (5-15) Blood Urea Nitrogen 12 mg/dL (7-18) Creatinine 1.3 MG/DL (0.55-1.30) Estimat Glomerular Filtration Rate > 60 mL/min (>60) Glucose Level 119 MG/DL (74-106) H Calcium Level 8.1 MG/DL (8.5-10.1) L Ammonia 48 umol/L (11-32) H Phenytoin (Dilantin) Level 29.6 ug/mL (10-20) H Plan Problems: (1) Transaminitis Assessment & Plan: reviewed chart discussed with GI likely due to drug toxicity. pending liver biopsy results (2) Elevated alkaline phosphatase level (3) Intractable pain Assessment & Plan: US noted - The liver is unremarkable. The gallbladder is unremarkable. The demonstrated part of the pancreas, aorta and IVC show no abnormalities. Both kidneys appear unremarkable. The spleen is normal in size. There is no biliary ductal dilatation identified. Doppler evaluation of the main portal vein shows patency. There is no ascites. No hydronephrosis seen. CBD is 3 mm. MRI noted - No definite gallstones. However, there is gallbladder wall edema and pericholecystic fluid. Could indicate acalculous acute cholecystitis or cholecystitis due to an occult calculus. Alternatively, this could represent reactive changes secondary to adjacent hepatocellular inflammation. Consider hepatobiliary nuclear scan if there is high clinical suspicion for acute cholecystitis. Negative for biliary ductal dilatation. HIDA noted - Poor hepatic tracer uptake, no biliary excretion. Findings most likely represents severe hepatocellular disease. Findings are nondiagnostic as regards cystic duct or common bile duct patency possible acute acalculous cholecystitis. exam difficult given history labs with resolved leukocytosis lft's abnormal from drug toxicity - levels still elevated. trend labs okay for diet pending liver biopsy results will follow clinically (4) Sepsis Jamin Lynch May 07, 2018 15:25
[2018-05-07] MEDS ORDERED: Tubing IV Secondary IV ONE (15:36)
[2018-05-07] MEDS ORDERED: NS 275ml ONE (15:36)
[2018-05-07 16:00] VITALS: BP 123/69
--- NOTE | 2018-05-07 17:15 | NUR ---
[employer]CH MANAGER SI:TRANSAMINITIS . BRAIN TUMOR VS: BP 139/77, P 102, T 98.2, RR 24, SpO2 97 RBC 3.16, Hgb 10.5, Hct 31.1, Ammonia 48 IS:Gabapentin oxycodone meropenem Rifaximin Lactulose Amlodipine Hydralazine Keppra Heparin SUBQ MED/SURG STATUS
--- NOTE | 2018-05-07 19:44 | NUR ---
HAND-OFF: Report given to BELEN Mesa.
[2018-05-07 20:00] VITALS: BP 133/77
--- NOTE | 2018-05-07 20:50 | NUR ---
NURSE NOTES: PATIENT IN BED, ASLEEP, AROUSABLE TO NAME. ALERT TO NAME AND PLACE. FAMILY AT BEDSIDE. IV IN PLACE, PATENT. NO COMPLAINT SOF PAIN AT THIS TIME. NO S/S RESPIRATORY DISTRESS NOTED. BED IN LOWEST POSITION, CALL LIGHT WITHIN REACH, BED ALARM ON. WILL CONTINUE TO MONITOR.
[2018-05-07] MEDS: oxyCODONE 5mg IR tab ORAL PRN (22:26)
[2018-05-08 00:37] VITALS: BP 130/75
[2018-05-08] MEDS: oxyCODONE 5mg IR tab ORAL PRN ×5 (03:49→20:53)
[2018-05-08 04:00] VITALS: BP 142/76
--- NOTE | 2018-05-08 05:00 | NUR ---
NURSE NOTES: PATIENT ASLEEP, NO DISTRESS NOTED.
[2018-05-08] MEDS: Meropenem 1 GM in NS 55 ML IVPB SCH ×3 (06:05→21:52)
[2018-05-08] MEDS: HydrALAZINE 25mg tab ORAL SCH ×3 (06:05→21:49)
--- NOTE | 2018-05-08 07:10 | NUR ---
HAND-OFF: Report given to LACIE NORTH RN.
[2018-05-08 07:27] LABS: HEMOGLOBIN 10.8 G/DL (14.2-18.0); MEAN CORPUSCULAR VOLUME 98 FL (80-99); PLATELET COUNT 588 K/UL (150-450); RED BLOOD COUNT 3.36 M/UL (4.70-6.10); RED CELL DISTRIBUTION WIDTH 13.1 % (11.6-14.8); WHITE BLOOD COUNT 14.1 K/UL (4.8-10.8)
[2018-05-08 07:38] LABS: INR 1.4 (0.9-1.1)
--- NOTE | 2018-05-08 07:44 | NUR ---
NURSE NOTES: Report received from BELEN Mesa. Pt in bed, asleep, respirations unlabored, bed in lowest position, call light within reach, sitter at bedside.
[2018-05-08 07:50] VITALS: BP 129/87
[2018-05-08] MEDS: Lactulose 10gm/15ml UDC ORAL SCH ×3 (07:54→17:18)
[2018-05-08] MEDS: Heparin 5000 units/ml inj SUBQ SCH ×2 (07:56→20:04)
[2018-05-08 08:07] LABS: ALANINE AMINOTRANSFERASE 90 U/L (12-78); ALBUMIN 1.9 G/DL (3.4-5.0); ALBUMIN/GLOBULIN RATIO 0.6 (1.0-2.7); ALKALINE PHOSPHATASE 1782 U/L (46-116); ANION GAP 7 mmol/L (5-15); ASPARTATE AMINO TRANSFERASE 138 U/L (15-37); BILIRUBIN,TOTAL 12.3 MG/DL (0.2-1.0); BLOOD UREA NITROGEN 13 mg/dL (7-18); CALCIUM 8.6 MG/DL (8.5-10.1); CARBON DIOXIDE 26 MMOL/L (21-32); CHLORIDE 97 MMOL/L (98-107); CREATININE 1.3 MG/DL (0.55-1.30); POTASSIUM 4.8 MMOL/L (3.5-5.1); SODIUM 130 MMOL/L (136-145)
--- NOTE | 2018-05-08 08:49 | General Progress Note ---
Assessment/Plan Assessment/Plan (1) Headache (2) Brain neoplasm s/p craniotomy and resection Patient to be continued on Neurontin and Oxycodone. D/w Dr. Delarosa and he concurred. Subjective Date patient seen: May 08, 2018 Time patient seen: 08:15 - am Allergies: Coded Allergies: GADOBUTROL (Verified Allergy, Intermediate, 04/30/18) PHENYTOIN (Verified Allergy, Unknown, 05/03/18) Drug hypersensitivity syndrome; hepatotoxicity Uncoded Allergies: CONTRAST (Allergy, Mild, Rash, 05/03/18) questionable if it was due to contrast; patient at the time (April 2018) also had dilantin reaction (probably rash was due to dilantin) Subjective REVIEW OF SYSTEMS: Denies rash, fever, chills, sweating, dizziness, drowsiness, blurred vision, sore throat, or change in his weight. No shortness of breath, chest pain, palpitations, or cough. No nausea, vomiting, diarrhea, or blood in stool or urine. He complains of headaches. SUBJECTIVE: Patient is in bed no signs of pain. Percocet was changed to oxycodone due to liver abnormalities. Objective Last 24 Hour Vital Signs Date Time Temp Pulse Resp B/P (MAP) Pulse Ox O2 Delivery O2 Flow Rate FiO2 05/08/18 07:54 11 129/87 05/08/18 07:50 99.9 11 18 129/87 (101) 96 05/08/18 06:05 142/76 05/08/18 04:00 98.4 107 20 142/76 (98) 100 05/08/18 00:37 97.9 101 20 130/75 (93) 98 05/07/18 21:54 133/77 05/07/18 21:00 Room Air Room Air 05/07/18 20:00 97.2 89 20 133/77 (95) 100 05/07/18 17:24 97.9 05/07/18 16:00 97.9 99 21 123/69 (87) 97 05/07/18 14:24 139/77 05/07/18 12:48 98.2 102 24 139/77 (97) 98 05/07/18 12:41 98.2 05/07/18 09:00 Room Air Room Air Intake and Output 05/07/18 05/08/18 18:59 06:59 Intake Total 655 ml 350 ml Output Total 800 ml Balance 655 ml -450 ml Intake Oral 480 ml 240 ml IV Total 175 ml 110 ml Output Urine Total 800 ml # Voids 2 Laboratory Tests 05/08/18 05:24: White Blood Count 14.1H, Red Blood Count 3.36L, Hemoglobin 10.8L, Hematocrit 33.0L, Mean Corpuscular Volume 98, Mean Corpuscular Hemoglobin 32.2H, Mean Corpuscular Hemoglobin Concent 32.8, Red Cell Distribution Width 13.1, Platelet Count 588H, Mean Platelet Volume 5.7L, Neutrophils (%) (Auto) , Lymphocytes (%) (Auto) , Monocytes (%) (Auto) , Eosinophils (%) (Auto) , Basophils (%) (Auto) , Neutrophils % (Manual) [Pending], Lymphocytes % (Manual) [Pending], Platelet Estimate [Pending], Platelet Morphology [Pending], Prothrombin Time 14.4H, Prothromb Time International Ratio 1.4H, Sodium Level 130L, Potassium Level 4.8 , Chloride Level 97L, Carbon Dioxide Level 26, Anion Gap 7, Blood Urea Nitrogen 13, Creatinine 1.3, Estimat Glomerular Filtration Rate > 60, Glucose Level 101, Calcium Level 8.6, Total Bilirubin 12.3H, Direct Bilirubin 10.0H, Aspartate Amino Transf (AST/SGOT) 138H, Alanine Aminotransferase (ALT/SGPT) 90H, Alkaline Phosphatase 1782H, Ammonia 46H, Total Protein 5.3L, Albumin 1.9L, Globulin 3.4, Albumin/Globulin Ratio 0.6L Height (Feet): 5 Height (Inches): 11.00 Weight (Pounds): 148 Objective GENERAL: Alert, awake, and oriented. LUNGS: Clear bilaterally. HEART: S1 and S2, regular. ABDOMEN: Soft and nontender. EXTREMITIES: No cyanosis. No clubbing. No edema. NEURO: No changes. Albert Hoyos May 08, 2018 08:49
--- NOTE | 2018-05-08 11:22 | Infectious Diseases Prog Note ---
Assessment/Plan Assessment/Plan Assessment: Sepsis; improving- likely due to probable acute acalculous cholecystitis Fever , SP ?PNA -CXR: Mildly increased interstitial markings. This is nonspecific and cannot exclude a mild bronchitis or interstitial pneumonitis. No focal consolidation. -wound cx craniotomy incision: MSSA (wound doesnt appaer infected) -bcx NTD -influenza sc neg Mild leukocytosis,recurrent Elevated LFTs, improving (probably due to both cholecystitis and toxic phenytoin levels); increasing Elev alk and Leno )ALP >> AST, ALT); worsening- Probasble Acute acalculous cholecystitis -05/05 SP Liver biopsy -HIDA scan: Poor hepatic tracer uptake, no biliary excretion. Findings most likely represents severe hepatocellular disease. Findings are nondiagnostic as regards cystic duct or common bile duct patency -MRCP:No definite gallstones. However, there is gallbladder wall edema and pericholecystic fluid. Could indicate acalculous acute cholecystitis or cholecystitis due to an occult calculus. Alternatively, this could represent reactive changes secondary to adjacent hepatocellular inflammation. Consider hepatobiliary nuclear scan if there is high clinical suspicion for acute cholecystitis. Negative for biliary ductal dilatation. Periportal edema. This can be seen acute hepatitis or right heart failure, among other possibilities -Abd US: No acute findings. 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 Please correlate with the surgical history. Some enhancement of the dura along the anterior interhemispheric fissure and within the surgical bed is not unexpected given the recent surgery. However, the possibility of residual neoplasm is not excludable. There are no reference studies to compare to the preoperative MRI available. Other notable postsurgical finding includes a small fluid collection within the surgical bed deep to the bifrontal craniotomy flap and mild edema within the frontal lobes -CT brain wo: Postsurgical changes associated with relatively recent bifrontal craniotomy likely resection of a mass in the area of the interhemispheric fissure. 6 mm thick mixed attenuation extra-axial blood noted within the surgical bed. Please correlate with the operative report and comparison with prior studies is strongly recommended. -ESR 42, CRP 16.2 -HIV ag/ab neg MICHELLE (supratherapuetic vanco levels) Recent Brain tumor removal (1 month ago) seizure disorder GERD Tobacco use Drug rash-?culprit (present before antibiotics) Plan: -Continue Meropenem #8 (abx d#13/14) given ongoing fevers and leukocytosis and for probable acute acalculous cholecystitis -Add Micafungin in the setting of cholecystitis and increased WBC -Repeat Bcx x2 -3/5 SP IV Vancomycin #7 -3/4 SP Cefepime #6 -Will hold on LP for now as an alternative source of sepsis is considered -Monitor CBC/CMP, temperatures -GI, Sx f/u: ; ?cholecystostomy -f/u liver biopsy -Nuero fu: holding Phenytoin (toxic levels; also probable drug induced hypersensitize syndrome as had rash, eosinophilia and hepatoxicity) Subjective Allergies: Coded Allergies: GADOBUTROL (Verified Allergy, Intermediate, 04/30/18) PHENYTOIN (Verified Allergy, Unknown, 05/03/18) Drug hypersensitivity syndrome; hepatotoxicity Uncoded Allergies: CONTRAST (Allergy, Mild, Rash, 05/03/18) questionable if it was due to contrast; patient at the time (Mar-April 2018) also had dilantin reaction (probably rash was due to dilantin) Subjective afebrile leukocytosis ALP and Tbili worsening AST and ALT mild worsenign today Objective Vital Signs Last 24 Hour Vital Signs Date Time Temp Pulse Resp B/P (MAP) Pulse Ox O2 Delivery O2 Flow Rate FiO2 05/08/18 09:00 Room Air Room Air 05/08/18 07:54 11 129/87 05/08/18 07:50 99.9 11 18 129/87 (101) 96 05/08/18 06:05 142/76 05/08/18 04:00 98.4 107 20 142/76 (98) 100 05/08/18 00:37 97.9 101 20 130/75 (93) 98 05/07/18 21:54 133/77 05/07/18 21:00 Room Air Room Air 05/07/18 20:00 97.2 89 20 133/77 (95) 100 05/07/18 17:24 97.9 05/07/18 16:00 97.9 99 21 123/69 (87) 97 05/07/18 14:24 139/77 05/07/18 12:48 98.2 102 24 139/77 (97) 98 05/07/18 12:41 98.2 Height (Feet): 5 Height (Inches): 11.00 Weight (Pounds): 148 Objective HEAD: craniotomy scar with some superficial ulceration on R left side- no signs of infection GENERAL: Anxious in bed, oriented x2, in no acute distress. CARDIOVASCULAR: No murmur. LUNGS: Distant and clear. ABDOMEN: Bowel sounds positive. Nontender. Nondistended. EXTREMITIES: No cyanosis, clubbing, or edema. NEUROLOGIC: The patient moves all extremities. Slight weakness in extremities. Skin: maculopapular rash in torso, arms Laboratory Tests Test 05/08/18 05:24 White Blood Count 14.1 K/UL (4.8-10.8) H Red Blood Count 3.36 M/UL (4.70-6.10) L Hemoglobin 10.8 G/DL (14.2-18.0) L Hematocrit 33.0 % (42.0-52.0) L Mean Corpuscular Volume 98 FL (80-99) Mean Corpuscular Hemoglobin 32.2 PG (27.0-31.0) H Mean Corpuscular Hemoglobin Concent 32.8 G/DL (32.0-36.0) Red Cell Distribution Width 13.1 % (11.6-14.8) Platelet Count 588 K/UL (150-450) H Mean Platelet Volume 5.7 FL (6.5-10.1) L Neutrophils (%) (Auto) % (45.0-75.0) Lymphocytes (%) (Auto) % (20.0-45.0) Monocytes (%) (Auto) % (1.0-10.0) Eosinophils (%) (Auto) % (0.0-3.0) Basophils (%) (Auto) % (0.0-2.0) Differential Total Cells Counted 100 Neutrophils % (Manual) 40 % (45-75) L Lymphocytes % (Manual) 10 % (20-45) L Monocytes % (Manual) 11 % (1-10) H Eosinophils % (Manual) 39 % (0-3) H Basophils % (Manual) 0 % (0-2) Band Neutrophils 0 % (0-8) Platelet Estimate Increased H Platelet Morphology Normal Hypochromasia 1+ Prothrombin Time 14.4 SEC (9.30-11.50) H Prothromb Time International Ratio 1.4 (0.9-1.1) H Sodium Level 130 MMOL/L (136-145) L Potassium Level 4.8 MMOL/L (3.5-5.1) Chloride Level 97 MMOL/L (98-107) L Carbon Dioxide Level 26 MMOL/L (21-32) Anion Gap 7 mmol/L (5-15) Blood Urea Nitrogen 13 mg/dL (7-18) Creatinine 1.3 MG/DL (0.55-1.30) Estimat Glomerular Filtration Rate > 60 mL/min (>60) Glucose Level 101 MG/DL (74-106) Calcium Level 8.6 MG/DL (8.5-10.1) Total Bilirubin 12.3 MG/DL (0.2-1.0) H Direct Bilirubin 10.0 MG/DL (0.0-0.3) H Aspartate Amino Transf (AST/SGOT) 138 U/L (15-37) H Alanine Aminotransferase (ALT/SGPT) 90 U/L (12-78) H Alkaline Phosphatase 1782 U/L (46-116) H Ammonia 46 umol/L (11-32) H Total Protein 5.3 G/DL (6.4-8.2) L Albumin 1.9 G/DL (3.4-5.0) L Globulin 3.4 g/dL Albumin/Globulin Ratio 0.6 (1.0-2.7) L Current Medications Medications (Trade) Dose Ordered Sig/Obdulia Route PRN Reason Start Time Stop Time Status Last Admin Dose Admin Al Hydroxide/Mg Hydroxide (Mylanta II) 30 ml Q6H PRN ORAL dyspepsia 04/24/18 17:15 05/24/18 17:14 Amlodipine Besylate (Norvasc) 10 mg DAILY ORAL 04/25/18 09:00 05/25/18 08:59 05/08/18 07:54 Dextrose (Dextrose 50%) 25 ml Q30M PRN IV Hypoglycemia 04/24/18 17:15 05/24/18 17:14 Dextrose (Dextrose 50%) 50 ml Q30M PRN IV Hypoglycemia 04/24/18 17:15 05/24/18 17:14 Diphenhydramine HCl (Benadryl) 25 mg Q6H PRN IVP Itching 04/26/18 16:30 05/26/18 16:29 05/02/18 23:53 Folic Acid (Folate) 1 mg DAILY ORAL 04/25/18 12:00 05/25/18 11:59 05/08/18 07:54 Gabapentin (Neurontin) 300 mg ACBREAKFAST ORAL 05/06/18 06:30 06/05/18 06:29 05/08/18 06:04 Gabapentin (Neurontin) 300 mg BEDTIME ORAL 05/05/18 21:00 06/04/18 20:59 05/07/18 21:54 Gabapentin (Neurontin) 600 mg QPM ORAL 05/06/18 16:30 05/25/18 17:59 05/07/18 16:54 Heparin Sodium (Porcine) (Heparin 5000 units/ml) 5,000 units EVERY 12 HOURS SUBQ 04/24/18 21:00 05/24/18 20:59 05/08/18 07:56 Hydralazine HCl (Apresoline) 25 mg EVERY 8 HOURS ORAL 04/24/18 22:00 05/24/18 21:59 05/08/18 06:05 Lactulose (Cephulac) 10 gm THREE TIMES A DAY ORAL 04/29/18 13:30 05/29/18 13:29 05/08/18 07:54 Levetiracetam (Keppra) 500 mg EVERY 12 HOURS ORAL 04/24/18 21:00 05/24/18 20:59 05/08/18 07:54 Meropenem 1 gm/ Sodium Chloride 55 ml @ 110 mls/hr Q8HR IVPB 05/01/18 14:00 05/09/18 23:59 05/08/18 06:05 Metoclopramide HCl (Reglan) 10 mg Q8H PRN IVP Nausea & Vomiting 05/04/18 11:30 06/03/18 11:29 05/07/18 12:11 Ondansetron HCl (Zofran) 4 mg Q6H PRN IVP Nausea & Vomiting 04/24/18 17:15 05/24/18 17:14 05/08/18 07:56 Oxycodone HCl (Roxicodone) 5 mg Q4H PRN ORAL severe pain 05/07/18 22:15 05/14/18 22:14 05/08/18 07:55 Polyethylene Glycol (Miralax) 17 gm HSPRN PRN ORAL Constipation 04/24/18 17:15 05/24/18 17:14 Kelsie Ibarra M.D. May 08, 2018 11:22
--- NOTE | 2018-05-08 11:40 | GI Progress Note ---
Assessment/Plan Problems: (1) Weak ICD Codes: R53.1 - Weakness SNOMED: 52010020 (2) Malnutrition ICD Codes: E46 - Unspecified protein-calorie malnutrition SNOMED: 76980524 (3) Brain tumor ICD Codes: D49.6 - Neoplasm of unspecified behavior of brain SNOMED: 764445125 (4) Transaminitis ICD Codes: R74.0 - Nonspecific elevation of levels of transaminase and lactic acid dehydrogenase [LDH] SNOMED: 480533601, 913298099 (5) Anemia ICD Codes: D64.9 - Anemia, unspecified SNOMED: 273518197 (6) Intractable pain ICD Codes: R52 - Pain, unspecified SNOMED: 73531267 (7) Phenytoin toxicity ICD Codes: T42.0X1A - Poisoning by hydantoin derivatives, accidental ( unintentional), initial encounter SNOMED: 54854648 Status: not improved, unchanged Status Narrative Discussed with Dr. Kimball Assessment/Plan Head CT reviewed lipase normal abdominal US reviewed, negative follow Hepatitis panel, negative MRCP reviewed, negative for common bile duct dilation. Possible cholecystitis. AMA, REHAN and SMA negative Phenytoin toxicity >> DC Dilantin Liver biopsy performed, awaiting results Advance diet OB stool r/o GI bleed monitor H&H, prn transfusions bowel regime ppi lactulose + xifaxan Trend LFTs Outpatient GI procedures The patient was seen and examined at bedside and all new and available data was reviewed in the patients chart. I agree with the above findings, impression and plan. (Patient seen earlier today. Signature stamp does not reflect patient encounter time.). - Barry Kimball MD Subjective Subjective REES nausea vomiting Objective Last 24 Hour Vital Signs Date Time Temp Pulse Resp B/P (MAP) Pulse Ox O2 Delivery O2 Flow Rate FiO2 05/08/18 09:00 Room Air Room Air 05/08/18 07:54 11 129/87 05/08/18 07:50 99.9 11 18 129/87 (101) 96 05/08/18 06:05 142/76 05/08/18 04:00 98.4 107 20 142/76 (98) 100 05/08/18 00:37 97.9 101 20 130/75 (93) 98 05/07/18 21:54 133/77 05/07/18 21:00 Room Air Room Air 05/07/18 20:00 97.2 89 20 133/77 (95) 100 05/07/18 17:24 97.9 05/07/18 16:00 97.9 99 21 123/69 (87) 97 05/07/18 14:24 139/77 05/07/18 12:48 98.2 102 24 139/77 (97) 98 05/07/18 12:41 98.2 Intake and Output 05/07/18 05/08/18 18:59 06:59 Intake Total 655 ml 350 ml Output Total 800 ml Balance 655 ml -450 ml Intake Oral 480 ml 240 ml IV Total 175 ml 110 ml Output Urine Total 800 ml # Voids 2 Laboratory Tests Test 05/08/18 05:24 White Blood Count 14.1 K/UL (4.8-10.8) H Red Blood Count 3.36 M/UL (4.70-6.10) L Hemoglobin 10.8 G/DL (14.2-18.0) L Hematocrit 33.0 % (42.0-52.0) L Mean Corpuscular Volume 98 FL (80-99) Mean Corpuscular Hemoglobin 32.2 PG (27.0-31.0) H Mean Corpuscular Hemoglobin Concent 32.8 G/DL (32.0-36.0) Red Cell Distribution Width 13.1 % (11.6-14.8) Platelet Count 588 K/UL (150-450) H Mean Platelet Volume 5.7 FL (6.5-10.1) L Neutrophils (%) (Auto) % (45.0-75.0) Lymphocytes (%) (Auto) % (20.0-45.0) Monocytes (%) (Auto) % (1.0-10.0) Eosinophils (%) (Auto) % (0.0-3.0) Basophils (%) (Auto) % (0.0-2.0) Differential Total Cells Counted 100 Neutrophils % (Manual) 40 % (45-75) L Lymphocytes % (Manual) 10 % (20-45) L Monocytes % (Manual) 11 % (1-10) H Eosinophils % (Manual) 39 % (0-3) H Basophils % (Manual) 0 % (0-2) Band Neutrophils 0 % (0-8) Platelet Estimate Increased H Platelet Morphology Normal Hypochromasia 1+ Prothrombin Time 14.4 SEC (9.30-11.50) H Prothromb Time International Ratio 1.4 (0.9-1.1) H Sodium Level 130 MMOL/L (136-145) L Potassium Level 4.8 MMOL/L (3.5-5.1) Chloride Level 97 MMOL/L (98-107) L Carbon Dioxide Level 26 MMOL/L (21-32) Anion Gap 7 mmol/L (5-15) Blood Urea Nitrogen 13 mg/dL (7-18) Creatinine 1.3 MG/DL (0.55-1.30) Estimat Glomerular Filtration Rate > 60 mL/min (>60) Glucose Level 101 MG/DL (74-106) Calcium Level 8.6 MG/DL (8.5-10.1) Total Bilirubin 12.3 MG/DL (0.2-1.0) H Direct Bilirubin 10.0 MG/DL (0.0-0.3) H Aspartate Amino Transf (AST/SGOT) 138 U/L (15-37) H Alanine Aminotransferase (ALT/SGPT) 90 U/L (12-78) H Alkaline Phosphatase 1782 U/L (46-116) H Ammonia 46 umol/L (11-32) H Total Protein 5.3 G/DL (6.4-8.2) L Albumin 1.9 G/DL (3.4-5.0) L Globulin 3.4 g/dL Albumin/Globulin Ratio 0.6 (1.0-2.7) L Height (Feet): 5 Height (Inches): 11.00 Weight (Pounds): 148 General Appearance: WD/WN, no apparent distress, alert Cardiovascular: normal rate Respiratory/Chest: normal breath sounds, no respiratory distress Abdominal Exam: normal bowel sounds, non tender, soft Extremities: normal range of motion, non-tender Bhupendra Barriga NP May 08, 2018 11:40
--- NOTE | 2018-05-08 11:48 | General Progress Note ---
Assessment/Plan Problem List: (1) Head ache ICD Codes: R51 - Headache SNOMED: 58969293 (2) Weak ICD Codes: R53.1 - Weakness SNOMED: 47464043 (3) HTN (hypertension) ICD Codes: I10 - Essential (primary) hypertension SNOMED: 51284515 (4) Malnutrition ICD Codes: E46 - Unspecified protein-calorie malnutrition SNOMED: 37691463 (5) Epilepsy ICD Codes: G40.909 - Epilepsy, unspecified, not intractable, without status epilepticus SNOMED: 19127997 (6) Intractable pain ICD Codes: R52 - Pain, unspecified SNOMED: 79683361 (7) Phenytoin toxicity ICD Codes: T42.0X1A - Poisoning by hydantoin derivatives, accidental ( unintentional), initial encounter SNOMED: 70527842 Status: stable, progressing Assessment/Plan pt diet pain control neuro psyc eval abx prn cbc bmp am dc plan if clear Subjective Constitutional: Reports: weakness Allergies: Coded Allergies: GADOBUTROL (Verified Allergy, Intermediate, 04/30/18) PHENYTOIN (Verified Allergy, Unknown, 05/03/18) Drug hypersensitivity syndrome; hepatotoxicity Uncoded Allergies: CONTRAST (Allergy, Mild, Rash, 05/03/18) questionable if it was due to contrast; patient at the time (Mar-April 2018) also had dilantin reaction (probably rash was due to dilantin) All Systems: reviewed and negative except above Subjective anxious c/o head ache Objective Last 24 Hour Vital Signs Date Time Temp Pulse Resp B/P (MAP) Pulse Ox O2 Delivery O2 Flow Rate FiO2 05/08/18 09:00 Room Air Room Air 05/08/18 07:54 11 129/87 05/08/18 07:50 99.9 11 18 129/87 (101) 96 05/08/18 06:05 142/76 05/08/18 04:00 98.4 107 20 142/76 (98) 100 05/08/18 00:37 97.9 101 20 130/75 (93) 98 05/07/18 21:54 133/77 05/07/18 21:00 Room Air Room Air 05/07/18 20:00 97.2 89 20 133/77 (95) 100 05/07/18 17:24 97.9 05/07/18 16:00 97.9 99 21 123/69 (87) 97 05/07/18 14:24 139/77 05/07/18 12:48 98.2 102 24 139/77 (97) 98 05/07/18 12:41 98.2 Intake and Output 05/07/18 05/08/18 18:59 06:59 Intake Total 655 ml 350 ml Output Total 800 ml Balance 655 ml -450 ml Intake Oral 480 ml 240 ml IV Total 175 ml 110 ml Output Urine Total 800 ml # Voids 2 Laboratory Tests 05/08/18 05:24: White Blood Count 14.1H, Red Blood Count 3.36L, Hemoglobin 10.8L, Hematocrit 33.0L, Mean Corpuscular Volume 98, Mean Corpuscular Hemoglobin 32.2H, Mean Corpuscular Hemoglobin Concent 32.8, Red Cell Distribution Width 13.1, Platelet Count 588H, Mean Platelet Volume 5.7L, Neutrophils (%) (Auto) , Lymphocytes (%) (Auto) , Monocytes (%) (Auto) , Eosinophils (%) (Auto) , Basophils (%) (Auto) , Differential Total Cells Counted 100, Neutrophils % (Manual) 40L, Lymphocytes % (Manual) 10L, Monocytes % (Manual) 11H, Eosinophils % (Manual) 39H, Basophils % (Manual) 0, Band Neutrophils 0, Platelet Estimate IncreasedH, Platelet Morphology Normal, Hypochromasia 1+, Prothrombin Time 14.4H, Prothromb Time International Ratio 1.4H, Sodium Level 130L, Potassium Level 4.8, Chloride Level 97L, Carbon Dioxide Level 26, Anion Gap 7, Blood Urea Nitrogen 13, Creatinine 1.3, Estimat Glomerular Filtration Rate > 60, Glucose Level 101, Calcium Level 8.6, Total Bilirubin 12.3H, Direct Bilirubin 10.0H, Aspartate Amino Transf (AST/SGOT) 138H, Alanine Aminotransferase (ALT/SGPT) 90H, Alkaline Phosphatase 1782H, Ammonia 46H, Total Protein 5.3L, Albumin 1.9L, Globulin 3.4, Albumin/Globulin Ratio 0.6L Height (Feet): 5 Height (Inches): 11.00 Weight (Pounds): 148 General Appearance: lethargic EENT: normal ENT inspection Neck: normal alignment Cardiovascular: normal peripheral pulses, normal rate, regular rhythm Respiratory/Chest: chest wall non-tender, lungs clear, normal breath sounds Abdomen: normal bowel sounds, non tender, soft Extremities: normal inspection Edema: no edema noted Arm (L), no edema noted Arm (R), no edema noted Leg (L), no edema noted Leg (R), no edema noted Pedal (L), no edema noted Pedal (R), no edema noted Generalized Neurologic: responsive, motor weakness Skin: normal pigmentation, warm/dry Neri Cat DO May 08, 2018 11:48
[2018-05-08 11:53] VITALS: BP 124/87
[2018-05-08] MEDS: Metoclopramide 10mg/2ml Inj IVP PRN (12:21)
[2018-05-08] MEDS: Micafungin 100 MG in NS 110 ML IVPB SCH (12:50)
--- NOTE | 2018-05-08 14:02 | NUR ---
RD ASSESSMENT & RECOMMENDATIONS SEE CARE ACTIVITY FOR COMPLETE ASSESSMENT DAILY ESTIMATED NEEDS: Needs based on Underweight, hepatic, wound 66kg 25-35 kcals/kg 4767-6488 total kcals 1.25-1.5 g protein/kg 83-99 g total protein 25-30 mL/kg 8823-4230 total fluid mLs NUTRITION DIAGNOSIS: 1) Increased kcal and protein needs r/t low weight and wound healing as evidenced by pt is 84% of ideal body weight, w. poor po intake, w/ partial thickness anterior head injury. 2) Altered nutrition related lab values r/t clinical status, transaminitis as evidenced by elev T bili (12.3 trend up) w/ elev LFT's, elev NH3 (46). 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
--- NOTE | 2018-05-08 15:42 | NUR ---
NURSE NOTES: Notified Dr. Pawel WHITAKER 130
[2018-05-08 16:00] VITALS: BP 136/88
[2018-05-08] MEDS ORDERED: Tubing IV Secondary IV ONE (16:39)
--- NOTE | 2018-05-08 16:52 | NUR ---
P.T note: late entry 1000 AM Attempted to see pt today however patient not able to participate in therapy due to c/o severe headache. Pt currently sleeping after given meds for headache. Sister requested not to wake patient up and hold P.T until tomorrow . P.T will reattempt tomorrow.
--- NOTE | 2018-05-08 16:55 | Surgery Progress Note ---
Surgery Progress Note Subjective Additional Comments No acute events. Leukocytosis of 14,000. Still pending pathology results. LFTs elevated. Bilirubin elevated. Objective Last 24 Hour Vital Signs Date Time Temp Pulse Resp B/P (MAP) Pulse Ox O2 Delivery O2 Flow Rate FiO2 05/08/18 16:00 98.4 102 18 136/88 (104) 100 05/08/18 13:57 124/87 05/08/18 11:53 98.2 109 16 124/87 (99) 98 05/08/18 09:00 Room Air Room Air 05/08/18 07:54 11 129/87 05/08/18 07:50 99.9 11 18 129/87 (101) 96 05/08/18 06:05 142/76 05/08/18 04:00 98.4 107 20 142/76 (98) 100 05/08/18 00:37 97.9 101 20 130/75 (93) 98 05/07/18 21:54 133/77 05/07/18 21:00 Room Air Room Air 05/07/18 20:00 97.2 89 20 133/77 (95) 100 05/07/18 17:24 97.9 I&O Intake and Output 05/07/18 05/08/18 19:00 07:00 Intake Total 655 ml 350 ml Output Total 800 ml Balance 655 ml -450 ml Intake Oral 480 ml 240 ml IV Total 175 ml 110 ml Output Urine Total 800 ml # Voids 2 Cardiovascular: RSR Respiratory: clear Abdomen: soft, non-tender, present bowel sounds, non-distended Extremities: no tenderness, no cyanosis Laboratory Tests Test 05/08/18 05:24 05/08/18 05:30 White Blood Count 14.1 K/UL (4.8-10.8) H Red Blood Count 3.36 M/UL (4.70-6.10) L Hemoglobin 10.8 G/DL (14.2-18.0) L Hematocrit 33.0 % (42.0-52.0) L Mean Corpuscular Volume 98 FL (80-99) Mean Corpuscular Hemoglobin 32.2 PG (27.0-31.0) H Mean Corpuscular Hemoglobin Concent 32.8 G/DL (32.0-36.0) Red Cell Distribution Width 13.1 % (11.6-14.8) Platelet Count 588 K/UL (150-450) H Mean Platelet Volume 5.7 FL (6.5-10.1) L Neutrophils (%) (Auto) % (45.0-75.0) Lymphocytes (%) (Auto) % (20.0-45.0) Monocytes (%) (Auto) % (1.0-10.0) Eosinophils (%) (Auto) % (0.0-3.0) Basophils (%) (Auto) % (0.0-2.0) Differential Total Cells Counted 100 Neutrophils % (Manual) 40 % (45-75) L Lymphocytes % (Manual) 10 % (20-45) L Monocytes % (Manual) 11 % (1-10) H Eosinophils % (Manual) 39 % (0-3) H Basophils % (Manual) 0 % (0-2) Band Neutrophils 0 % (0-8) Platelet Estimate Increased H Platelet Morphology Normal Hypochromasia 1+ Prothrombin Time 14.4 SEC (9.30-11.50) H Prothromb Time International Ratio 1.4 (0.9-1.1) H Sodium Level 130 MMOL/L (136-145) L Potassium Level 4.8 MMOL/L (3.5-5.1) Chloride Level 97 MMOL/L (98-107) L Carbon Dioxide Level 26 MMOL/L (21-32) Anion Gap 7 mmol/L (5-15) Blood Urea Nitrogen 13 mg/dL (7-18) Creatinine 1.3 MG/DL (0.55-1.30) Estimat Glomerular Filtration Rate > 60 mL/min (>60) Glucose Level 101 MG/DL (74-106) Calcium Level 8.6 MG/DL (8.5-10.1) Total Bilirubin 12.3 MG/DL (0.2-1.0) H Direct Bilirubin 10.0 MG/DL (0.0-0.3) H Aspartate Amino Transf (AST/SGOT) 138 U/L (15-37) H Alanine Aminotransferase (ALT/SGPT) 90 U/L (12-78) H Alkaline Phosphatase 1782 U/L (46-116) H Ammonia 46 umol/L (11-32) H Total Protein 5.3 G/DL (6.4-8.2) L Albumin 1.9 G/DL (3.4-5.0) L Globulin 3.4 g/dL Albumin/Globulin Ratio 0.6 (1.0-2.7) L Phenytoin (Dilantin) Level 24.9 ug/mL (10-20) H Plan Problems: (1) Transaminitis Assessment & Plan: reviewed chart discussed with GI likely due to drug toxicity. pending liver biopsy results hep panel negative labs worsening (2) Elevated alkaline phosphatase level (3) Intractable pain Assessment & Plan: US noted - The liver is unremarkable. The gallbladder is unremarkable. The demonstrated part of the pancreas, aorta and IVC show no abnormalities. Both kidneys appear unremarkable. The spleen is normal in size. There is no biliary ductal dilatation identified. Doppler evaluation of the main portal vein shows patency. There is no ascites. No hydronephrosis seen. CBD is 3 mm. MRI noted - No definite gallstones. However, there is gallbladder wall edema and pericholecystic fluid. Could indicate acalculous acute cholecystitis or cholecystitis due to an occult calculus. Alternatively, this could represent reactive changes secondary to adjacent hepatocellular inflammation. Consider hepatobiliary nuclear scan if there is high clinical suspicion for acute cholecystitis. Negative for biliary ductal dilatation. HIDA noted - Poor hepatic tracer uptake, no biliary excretion. Findings most likely represents severe hepatocellular disease. Findings are nondiagnostic as regards cystic duct or common bile duct patency possible acute acalculous cholecystitis. exam difficult given history labs with resolved leukocytosis lft's abnormal from drug toxicity - levels still elevated. trend labs okay for diet pending liver biopsy results will follow clinically (4) Sepsis Jamin Lynch May 08, 2018 16:55
--- NOTE | 2018-05-08 17:24 | NUR ---
FORMS ANALYSIS MANAGERVENEER REDRIER SI:TRANSAMINITIS . BRAIN TUMOR VS: BP 136/88, P 109, T 99.9, RR 18, SpO2 100 WBC 14.1, RBC 3.36, AMMONIA 46, PT 14.4, INR 1.4 IS:MICAFUNGIN OXYCODONE GABAPENTIN REGLAN MEROPENEM LACTULOSE AMLODIPINE APRESOLINE KEPPRA HEPARIN ZOFRAN 4mg MED/SURG STATUS
--- NOTE | 2018-05-08 19:28 | NUR ---
HAND-OFF: Report given to BELEN Mesa.
--- NOTE | 2018-05-08 19:40 | NUR ---
NURSE NOTES: Patient in bed, alert and oriented x4, complained of nausea, will medicate as ordered. Instructed the use of call light. Call light and needs in reach. Bed in lowest position, lock engaged and alarm on. Will continue to monitor. Family at bedside.
--- NOTE | 2018-05-08 19:55 | NUR ---
HAND-OFF: Report given to HUSSAIN Soriano RN.
[2018-05-08 20:00] VITALS: BP 135/89
[2018-05-09] VITALS (7 sets, daily range): BP systolic 104–135; BP diastolic 61–78
--- NOTE | 2018-05-09 01:00 | Progress Note ---
DATE: 05/08/2018 NOTE: POOR AUDIO SUBJECTIVE: The patient's headaches according to his sister started when he was in the ICU right after his surgery at [facility] and they have not stopped since. His Dilantin level is now 29. His liver functions keep going up, but his mental status is better than it was before. The patient headaches are almost intractable,but so far been refractory to medications. PHYSICAL EXAMINATION: VITAL SIGNS: The patient's temperature is 99.9 degrees, his pulse rate is 11, his respiratory rate is 18, blood pressure is 129/87, pulse oximetry 96. NEUROLOGIC: MENTAL STATUS: He is still confused, a little bit lethargic, awakens to voice. Date, he knows it is April 2018. Place, he knows he is in the hospital, does not know the name of it. Person, he is oriented to person. He can answer simple questions. Still complains of headache. CRANIAL NERVE EXAMINATION: CRANIAL NERVES III, IV, AND : Extraocular motility is full with gaze evoked horizontal jerk nystagmus. CRANIAL NERVE V: Corneal is intact bilaterally. CRANIAL NERVE VII: Facial strength is intact bilaterally. CRANIAL NERVE VIII: Auditory acuity is intact. CRANIAL NERVES IX AND X: Not tested. CRANIAL NERVE XII: Tongue protrudes in the midline. MUSCLE EXAMINATION: He moves all 4 extremities equally. He has positive asterixis. REFLEXES: +1 in the upper extremities, 0 at the knees and ankles with downgoing toes and testing for Babinski response. LABORATORY DATA: His total bilirubin is now 12.3 with an alkaline phosphatase of 1782. His ammonia level is 46. The patient did have a liver biopsy. Still waiting on the results. Intractable hiccups occasionally caused by intracranial processes such as abscess in the medulla or any aneurysm in the posterior fossa. MRI will be obtained. IMPRESSION: It is more likely that his hiccups related to his GI disease. I am going to increase his gabapentin to 600 mg q.i.d. I think gabapentin can treat headaches as well as hiccups. PLAN: 1. Gabapentin 600 mg p.o. q.i.d. 2. stop dilantin Korey Parada MD DR: BECKY JOB#: [id number] CC: SEJAL
[2018-05-09] MEDS: oxyCODONE 5mg IR tab ORAL PRN ×5 (02:53→20:34)
[2018-05-09] MEDS: HydrALAZINE 25mg tab ORAL SCH ×3 (05:45→22:00)
[2018-05-09] MEDS: Meropenem 1 GM in NS 55 ML IVPB SCH (05:47)
[2018-05-09 06:33] LABS: HEMATOCRIT 32.1 % (42.0-52.0); HEMOGLOBIN 10.6 G/DL (14.2-18.0); MEAN CORPUSCULAR VOLUME 98 FL (80-99); PLATELET COUNT 625 K/UL (150-450); RED BLOOD COUNT 3.29 M/UL (4.70-6.10); RED CELL DISTRIBUTION WIDTH 13.2 % (11.6-14.8); WHITE BLOOD COUNT 13.9 K/UL (4.8-10.8)
[2018-05-09 06:51] LABS: ALANINE AMINOTRANSFERASE 88 U/L (12-78); ALBUMIN 1.8 G/DL (3.4-5.0); ALBUMIN/GLOBULIN RATIO 0.5 (1.0-2.7); ALKALINE PHOSPHATASE 1937 U/L (46-116); ANION GAP 6 mmol/L (5-15); ASPARTATE AMINO TRANSFERASE 131 U/L (15-37); BILIRUBIN,TOTAL 13.5 MG/DL (0.2-1.0); BLOOD UREA NITROGEN 15 mg/dL (7-18); CALCIUM 8.6 MG/DL (8.5-10.1); CARBON DIOXIDE 28 MMOL/L (21-32); CHLORIDE 94 MMOL/L (98-107); CREATININE 1.3 MG/DL (0.55-1.30); POTASSIUM 4.8 MMOL/L (3.5-5.1); SODIUM 128 MMOL/L (136-145)
[2018-05-09 06:53] LABS: BILIRUBIN,DIRECT 11.1 MG/DL (0.0-0.3)
--- NOTE | 2018-05-09 07:47 | NUR ---
HAND-OFF: Report given to BELEN Castellaons.
--- NOTE | 2018-05-09 07:50 | NUR ---
NURSE NOTES: Received patient in bed, awake, verbally responsive. Pain management done by the previous shift within a hour. Will continue to monitor patient noted with on and off hiccups. IV intact, no s/s of infiltration. Bed is in lowest position and locked. Bed alarm is on and side rails padded for seizure precaution. Personnel items @ bedside. Patients sister @ bedside. Will continue plan of care.
[2018-05-09] MEDS: Lactulose 10gm/15ml UDC ORAL SCH ×3 (09:22→18:02)
[2018-05-09] MEDS: Heparin 5000 units/ml inj SUBQ SCH ×2 (09:26→20:44)
--- NOTE | 2018-05-09 10:00 | NUR ---
CAFETERIA TABLE ATTENDANT SI:TRANSAMINITIS . BRAIN TUMOR VS: BP 129/78, P 106, T 98.4, RR 18, SpO2 97 WBC 13.9, RBC 3.29, Plt count 625, Na 128, Total Bilirubin 13.5, Alk Phos 1937 Total Protein 5.4 IS: MICAFUNGIN 100ml OXYCODONE 5mg GABAPENTIN 300 mg MEROPENEM 55ml LACTULOSE 10gm AMLODIPINE 10mg APRESOLINE 25mg KEPPRA 500 mg HEPARIN SUBQ MED/SURG STATUS
--- NOTE | 2018-05-09 10:30 | NUR ---
NURSE NOTES: Patient and patient's sister want to talk to pain doctor regarding patient's headache and pain meds. Albert will come and talk to the patient and sister.Awaiting for him.
--- NOTE | 2018-05-09 12:37 | GI Progress Note ---
Assessment/Plan Problems: (1) Weak ICD Codes: R53.1 - Weakness SNOMED: 06435217 (2) Malnutrition ICD Codes: E46 - Unspecified protein-calorie malnutrition SNOMED: 03719387 (3) Brain tumor ICD Codes: D49.6 - Neoplasm of unspecified behavior of brain SNOMED: 930446890 (4) Transaminitis ICD Codes: R74.0 - Nonspecific elevation of levels of transaminase and lactic acid dehydrogenase [LDH] SNOMED: 280181234, 378656491 (5) Anemia ICD Codes: D64.9 - Anemia, unspecified SNOMED: 205927663 (6) Intractable pain ICD Codes: R52 - Pain, unspecified SNOMED: 26102460 (7) Phenytoin toxicity ICD Codes: T42.0X1A - Poisoning by hydantoin derivatives, accidental ( unintentional), initial encounter SNOMED: 81340995 Status: unchanged Status Narrative Discussed with Dr. Kimball. Assessment/Plan Head CT reviewed lipase normal abdominal US reviewed, negative Hepatitis panel, negative MRCP reviewed, negative for common bile duct dilation. Possible cholecystitis. AMA, REHAN and SMA negative Phenytoin toxicity >> DC Dilantin Liver biopsy, verbal report drug induced. Keppra level ordered Advance diet OB stool r/o GI bleed monitor H&H, prn transfusions bowel regime ppi lactulose + xifaxan Trend LFTs Outpatient GI procedures The patient was seen and examined at bedside and all new and available data was reviewed in the patients chart. I agree with the above findings, impression and plan. (Patient seen earlier today. Signature stamp does not reflect patient encounter time.). - Barry Kimball MD Subjective Subjective REES nausea vomiting Objective Last 24 Hour Vital Signs Date Time Temp Pulse Resp B/P (MAP) Pulse Ox O2 Delivery O2 Flow Rate FiO2 05/09/18 09:22 106 129/78 05/09/18 09:00 Room Air Room Air 05/09/18 08:00 98.4 106 18 129/78 (95) 97 05/09/18 05:45 136/77 05/09/18 04:00 98.7 107 18 111/65 (80) 97 05/09/18 00:00 99.5 110 18 104/61 (75) 95 05/08/18 21:49 126/69 05/08/18 21:00 Room Air Room Air 05/08/18 20:00 98.4 109 18 135/89 (104) 97 05/08/18 16:00 98.4 102 18 136/88 (104) 100 05/08/18 13:57 124/87 Intake and Output 05/08/18 05/09/18 18:59 06:59 Intake Total 800 ml 55 ml Output Total 800 ml Balance 0 ml 55 ml Intake Oral 800 ml IV Total 55 ml Output Urine Total 800 ml # Voids 4 Laboratory Tests Test 05/09/18 05:05 White Blood Count 13.9 K/UL (4.8-10.8) H Red Blood Count 3.29 M/UL (4.70-6.10) L Hemoglobin 10.6 G/DL (14.2-18.0) L Hematocrit 32.1 % (42.0-52.0) L Mean Corpuscular Volume 98 FL (80-99) Mean Corpuscular Hemoglobin 32.3 PG (27.0-31.0) H Mean Corpuscular Hemoglobin Concent 33.0 G/DL (32.0-36.0) Red Cell Distribution Width 13.2 % (11.6-14.8) Platelet Count 625 K/UL (150-450) H Mean Platelet Volume 6.2 FL (6.5-10.1) L Neutrophils (%) (Auto) % (45.0-75.0) Lymphocytes (%) (Auto) % (20.0-45.0) Monocytes (%) (Auto) % (1.0-10.0) Eosinophils (%) (Auto) % (0.0-3.0) Basophils (%) (Auto) % (0.0-2.0) Differential Total Cells Counted 100 Neutrophils % (Manual) 41 % (45-75) L Lymphocytes % (Manual) 14 % (20-45) L Monocytes % (Manual) 10 % (1-10) Eosinophils % (Manual) 35 % (0-3) H Basophils % (Manual) 0 % (0-2) Band Neutrophils 0 % (0-8) Platelet Estimate Increased H Platelet Morphology Normal Hypochromasia 1+ Anisocytosis 1+ Sodium Level 128 MMOL/L (136-145) L Potassium Level 4.8 MMOL/L (3.5-5.1) Chloride Level 94 MMOL/L (98-107) L Carbon Dioxide Level 28 MMOL/L (21-32) Anion Gap 6 mmol/L (5-15) Blood Urea Nitrogen 15 mg/dL (7-18) Creatinine 1.3 MG/DL (0.55-1.30) Estimat Glomerular Filtration Rate > 60 mL/min (>60) Glucose Level 96 MG/DL (74-106) Calcium Level 8.6 MG/DL (8.5-10.1) Total Bilirubin 13.5 MG/DL (0.2-1.0) H Direct Bilirubin 11.1 MG/DL (0.0-0.3) H Aspartate Amino Transf (AST/SGOT) 131 U/L (15-37) H Alanine Aminotransferase (ALT/SGPT) 88 U/L (12-78) H Alkaline Phosphatase 1937 U/L (46-116) H Total Protein 5.4 G/DL (6.4-8.2) L Albumin 1.8 G/DL (3.4-5.0) L Globulin 3.6 g/dL Albumin/Globulin Ratio 0.5 (1.0-2.7) L Phenytoin (Dilantin) Level 24.1 ug/mL (10-20) H Levetiracetam (Keppra) Level Pending Height (Feet): 5 Height (Inches): 11.00 Weight (Pounds): 148 General Appearance: WD/WN, no apparent distress, alert Cardiovascular: normal rate Respiratory/Chest: normal breath sounds, no respiratory distress Abdominal Exam: normal bowel sounds, non tender, soft Extremities: normal range of motion, non-tender Bhupendra Barriga NP May 09, 2018 12:37
--- NOTE | 2018-05-09 13:17 | Surgery Progress Note ---
Surgery Progress Note Subjective Additional Comments no acute events. exam unchanged. labs with leukocytosis 13k. lft's elevated. path pending but prelim states drug induced. Objective Last 24 Hour Vital Signs Date Time Temp Pulse Resp B/P (MAP) Pulse Ox O2 Delivery O2 Flow Rate FiO2 05/09/18 09:22 106 129/78 05/09/18 09:00 Room Air Room Air 05/09/18 08:00 98.4 106 18 129/78 (95) 97 05/09/18 05:45 136/77 05/09/18 04:00 98.7 107 18 111/65 (80) 97 05/09/18 00:00 99.5 110 18 104/61 (75) 95 05/08/18 21:49 126/69 05/08/18 21:00 Room Air Room Air 05/08/18 20:00 98.4 109 18 135/89 (104) 97 05/08/18 16:00 98.4 102 18 136/88 (104) 100 05/08/18 13:57 124/87 I&O Intake and Output 05/08/18 05/09/18 18:59 06:59 Intake Total 800 ml 55 ml Output Total 800 ml Balance 0 ml 55 ml Intake Oral 800 ml IV Total 55 ml Output Urine Total 800 ml # Voids 4 Cardiovascular: RSR Respiratory: clear Abdomen: soft, flat, non-tender, present bowel sounds, non-distended Extremities: no tenderness, no cyanosis Laboratory Tests Test 05/09/18 05:05 White Blood Count 13.9 K/UL (4.8-10.8) H Red Blood Count 3.29 M/UL (4.70-6.10) L Hemoglobin 10.6 G/DL (14.2-18.0) L Hematocrit 32.1 % (42.0-52.0) L Mean Corpuscular Volume 98 FL (80-99) Mean Corpuscular Hemoglobin 32.3 PG (27.0-31.0) H Mean Corpuscular Hemoglobin Concent 33.0 G/DL (32.0-36.0) Red Cell Distribution Width 13.2 % (11.6-14.8) Platelet Count 625 K/UL (150-450) H Mean Platelet Volume 6.2 FL (6.5-10.1) L Neutrophils (%) (Auto) % (45.0-75.0) Lymphocytes (%) (Auto) % (20.0-45.0) Monocytes (%) (Auto) % (1.0-10.0) Eosinophils (%) (Auto) % (0.0-3.0) Basophils (%) (Auto) % (0.0-2.0) Differential Total Cells Counted 100 Neutrophils % (Manual) 41 % (45-75) L Lymphocytes % (Manual) 14 % (20-45) L Monocytes % (Manual) 10 % (1-10) Eosinophils % (Manual) 35 % (0-3) H Basophils % (Manual) 0 % (0-2) Band Neutrophils 0 % (0-8) Platelet Estimate Increased H Platelet Morphology Normal Hypochromasia 1+ Anisocytosis 1+ Sodium Level 128 MMOL/L (136-145) L Potassium Level 4.8 MMOL/L (3.5-5.1) Chloride Level 94 MMOL/L (98-107) L Carbon Dioxide Level 28 MMOL/L (21-32) Anion Gap 6 mmol/L (5-15) Blood Urea Nitrogen 15 mg/dL (7-18) Creatinine 1.3 MG/DL (0.55-1.30) Estimat Glomerular Filtration Rate > 60 mL/min (>60) Glucose Level 96 MG/DL (74-106) Calcium Level 8.6 MG/DL (8.5-10.1) Total Bilirubin 13.5 MG/DL (0.2-1.0) H Direct Bilirubin 11.1 MG/DL (0.0-0.3) H Aspartate Amino Transf (AST/SGOT) 131 U/L (15-37) H Alanine Aminotransferase (ALT/SGPT) 88 U/L (12-78) H Alkaline Phosphatase 1937 U/L (46-116) H Total Protein 5.4 G/DL (6.4-8.2) L Albumin 1.8 G/DL (3.4-5.0) L Globulin 3.6 g/dL Albumin/Globulin Ratio 0.5 (1.0-2.7) L Phenytoin (Dilantin) Level 24.1 ug/mL (10-20) H Levetiracetam (Keppra) Level Pending Plan Problems: (1) Transaminitis Assessment & Plan: reviewed chart discussed with GI likely due to drug toxicity. pending liver biopsy results -prelim drug induced hep panel negative labs worsening (2) Elevated alkaline phosphatase level (3) Intractable pain Assessment & Plan: US noted - The liver is unremarkable. The gallbladder is unremarkable. The demonstrated part of the pancreas, aorta and IVC show no abnormalities. Both kidneys appear unremarkable. The spleen is normal in size. There is no biliary ductal dilatation identified. Doppler evaluation of the main portal vein shows patency. There is no ascites. No hydronephrosis seen. CBD is 3 mm. MRI noted - No definite gallstones. However, there is gallbladder wall edema and pericholecystic fluid. Could indicate acalculous acute cholecystitis or cholecystitis due to an occult calculus. Alternatively, this could represent reactive changes secondary to adjacent hepatocellular inflammation. Consider hepatobiliary nuclear scan if there is high clinical suspicion for acute cholecystitis. Negative for biliary ductal dilatation. HIDA noted - Poor hepatic tracer uptake, no biliary excretion. Findings most likely represents severe hepatocellular disease. Findings are nondiagnostic as regards cystic duct or common bile duct patency possible acute acalculous cholecystitis. exam difficult given history labs with resolved leukocytosis lft's abnormal from drug toxicity - levels still elevated. trend labs okay for diet pending liver biopsy results will follow clinically (4) Sepsis Jamin Lynch May 09, 2018 13:17
[2018-05-09] MEDS: Micafungin 100 MG in NS 110 ML IVPB SCH (13:37)
--- NOTE | 2018-05-09 13:58 | Infectious Diseases Prog Note ---
Assessment/Plan Assessment/Plan Assessment: Sepsis; improving- likely due to probable acute acalculous cholecystitis Fever , SP ?PNA -CXR: Mildly increased interstitial markings. This is nonspecific and cannot exclude a mild bronchitis or interstitial pneumonitis. No focal consolidation. -wound cx craniotomy incision: MSSA (wound doesnt appaer infected) -bcx NTD -influenza sc neg Mild leukocytosis,recurrent Elevated LFTs, improving (probably due to both cholecystitis and toxic phenytoin levels); Elev alk and Leno )ALP >> AST, ALT); worsening- Probasble Acute acalculous cholecystitis -05/05 SP Liver biopsy: verbal report drug induced. -HIDA scan: Poor hepatic tracer uptake, no biliary excretion. Findings most likely represents severe hepatocellular disease. Findings are nondiagnostic as regards cystic duct or common bile duct patency -MRCP:No definite gallstones. However, there is gallbladder wall edema and pericholecystic fluid. Could indicate acalculous acute cholecystitis or cholecystitis due to an occult calculus. Alternatively, this could represent reactive changes secondary to adjacent hepatocellular inflammation. Consider hepatobiliary nuclear scan if there is high clinical suspicion for acute cholecystitis. Negative for biliary ductal dilatation. Periportal edema. This can be seen acute hepatitis or right heart failure, among other possibilities -Abd US: No acute findings. 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 Please correlate with the surgical history. Some enhancement of the dura along the anterior interhemispheric fissure and within the surgical bed is not unexpected given the recent surgery. However, the possibility of residual neoplasm is not excludable. There are no reference studies to compare to the preoperative MRI available. Other notable postsurgical finding includes a small fluid collection within the surgical bed deep to the bifrontal craniotomy flap and mild edema within the frontal lobes -CT brain wo: Postsurgical changes associated with relatively recent bifrontal craniotomy likely resection of a mass in the area of the interhemispheric fissure. 6 mm thick mixed attenuation extra-axial blood noted within the surgical bed. Please correlate with the operative report and comparison with prior studies is strongly recommended. -ESR 42, CRP 16.2 -HIV ag/ab neg MICHELLE (supratherapuetic vanco levels) Recent Brain tumor removal (1 month ago) seizure disorder GERD Tobacco use Drug rash-?culprit (present before antibiotics) Plan: -Given drug induced liver damage on pathology - will do an antibiotic free period to evaluate if any of these are a potential culprit. -D/c Meropenem #9 (abx d#/) and Micafungin #2 -f/u Repeat Bcx x2 -3/ SP IV Vancomycin #7 -3/4 SP Cefepime #6 -Will hold on LP for now as an alternative source of sepsis is considered -Monitor CBC/CMP, temperatures -GI, Sx f/u: ; ?cholecystostomy -Nuero fu: holding Phenytoin (toxic levels; also probable drug induced hypersensitize syndrome as had rash, eosinophilia and hepatoxicity) Subjective Allergies: Coded Allergies: GADOBUTROL (Verified Allergy, Intermediate, 04/30/18) PHENYTOIN (Verified Allergy, Unknown, 05/03/18) Drug hypersensitivity syndrome; hepatotoxicity Uncoded Allergies: CONTRAST (Allergy, Mild, Rash, 05/03/18) questionable if it was due to contrast; patient at the time (Mar-April 2018) also had dilantin reaction (probably rash was due to dilantin) Subjective afebrile leukocytosis improving ALP and Tbili continues to worsen AST and ALT improving liver bx consistent with drug induced hepatitis Objective Vital Signs Last 24 Hour Vital Signs Date Time Temp Pulse Resp B/P (MAP) Pulse Ox O2 Delivery O2 Flow Rate FiO2 05/09/18 09:22 106 129/78 05/09/18 09:00 Room Air Room Air 05/09/18 08:00 98.4 106 18 129/78 (95) 97 05/09/18 05:45 136/77 05/09/18 04:00 98.7 107 18 111/65 (80) 97 05/09/18 00:00 99.5 110 18 104/61 (75) 95 05/08/18 21:49 126/69 05/08/18 21:00 Room Air Room Air 05/08/18 20:00 98.4 109 18 135/89 (104) 97 05/08/18 16:00 98.4 102 18 136/88 (104) 100 05/08/18 13:57 124/87 Height (Feet): 5 Height (Inches): 11.00 Weight (Pounds): 148 Objective HEAD: craniotomy scar with some superficial ulceration on R left side- no signs of infection GENERAL: Anxious in bed, oriented x2, in no acute distress. CARDIOVASCULAR: No murmur. LUNGS: Distant and clear. ABDOMEN: Bowel sounds positive. Nontender. Nondistended. EXTREMITIES: No cyanosis, clubbing, or edema. NEUROLOGIC: The patient moves all extremities. Slight weakness in extremities. Skin: maculopapular rash in torso, arms Laboratory Tests Test 05/09/18 05:05 White Blood Count 13.9 K/UL (4.8-10.8) H Red Blood Count 3.29 M/UL (4.70-6.10) L Hemoglobin 10.6 G/DL (14.2-18.0) L Hematocrit 32.1 % (42.0-52.0) L Mean Corpuscular Volume 98 FL (80-99) Mean Corpuscular Hemoglobin 32.3 PG (27.0-31.0) H Mean Corpuscular Hemoglobin Concent 33.0 G/DL (32.0-36.0) Red Cell Distribution Width 13.2 % (11.6-14.8) Platelet Count 625 K/UL (150-450) H Mean Platelet Volume 6.2 FL (6.5-10.1) L Neutrophils (%) (Auto) % (45.0-75.0) Lymphocytes (%) (Auto) % (20.0-45.0) Monocytes (%) (Auto) % (1.0-10.0) Eosinophils (%) (Auto) % (0.0-3.0) Basophils (%) (Auto) % (0.0-2.0) Differential Total Cells Counted 100 Neutrophils % (Manual) 41 % (45-75) L Lymphocytes % (Manual) 14 % (20-45) L Monocytes % (Manual) 10 % (1-10) Eosinophils % (Manual) 35 % (0-3) H Basophils % (Manual) 0 % (0-2) Band Neutrophils 0 % (0-8) Platelet Estimate Increased H Platelet Morphology Normal Hypochromasia 1+ Anisocytosis 1+ Sodium Level 128 MMOL/L (136-145) L Potassium Level 4.8 MMOL/L (3.5-5.1) Chloride Level 94 MMOL/L (98-107) L Carbon Dioxide Level 28 MMOL/L (21-32) Anion Gap 6 mmol/L (5-15) Blood Urea Nitrogen 15 mg/dL (7-18) Creatinine 1.3 MG/DL (0.55-1.30) Estimat Glomerular Filtration Rate > 60 mL/min (>60) Glucose Level 96 MG/DL (74-106) Calcium Level 8.6 MG/DL (8.5-10.1) Total Bilirubin 13.5 MG/DL (0.2-1.0) H Direct Bilirubin 11.1 MG/DL (0.0-0.3) H Aspartate Amino Transf (AST/SGOT) 131 U/L (15-37) H Alanine Aminotransferase (ALT/SGPT) 88 U/L (12-78) H Alkaline Phosphatase 1937 U/L (46-116) H Total Protein 5.4 G/DL (6.4-8.2) L Albumin 1.8 G/DL (3.4-5.0) L Globulin 3.6 g/dL Albumin/Globulin Ratio 0.5 (1.0-2.7) L Phenytoin (Dilantin) Level 24.1 ug/mL (10-20) H Levetiracetam (Keppra) Level Pending Current Medications Medications (Trade) Dose Ordered Sig/Obdulia Route PRN Reason Start Time Stop Time Status Last Admin Dose Admin Al Hydroxide/Mg Hydroxide (Mylanta II) 30 ml Q6H PRN ORAL dyspepsia 04/24/18 17:15 05/24/18 17:14 Amlodipine Besylate (Norvasc) 10 mg DAILY ORAL 04/25/18 09:00 05/25/18 08:59 05/09/18 09:22 Dextrose (Dextrose 50%) 25 ml Q30M PRN IV Hypoglycemia 04/24/18 17:15 05/24/18 17:14 Dextrose (Dextrose 50%) 50 ml Q30M PRN IV Hypoglycemia 04/24/18 17:15 05/24/18 17:14 Diphenhydramine HCl (Benadryl) 25 mg Q6H PRN IVP Itching 04/26/18 16:30 05/26/18 16:29 05/02/18 23:53 Folic Acid (Folate) 1 mg DAILY ORAL 04/25/18 12:00 05/25/18 11:59 05/09/18 09:22 Gabapentin (Neurontin) 300 mg ACBREAKFAST ORAL 05/06/18 06:30 06/05/18 06:29 05/09/18 05:44 Gabapentin (Neurontin) 300 mg BEDTIME ORAL 05/05/18 21:00 06/04/18 20:59 05/08/18 20:03 Gabapentin (Neurontin) 600 mg QPM ORAL 05/06/18 16:30 05/25/18 17:59 05/08/18 16:17 Heparin Sodium (Porcine) (Heparin 5000 units/ml) 5,000 units EVERY 12 HOURS SUBQ 04/24/18 21:00 05/24/18 20:59 05/09/18 09:26 Hydralazine HCl (Apresoline) 25 mg EVERY 8 HOURS ORAL 04/24/18 22:00 05/24/18 21:59 05/09/18 05:45 Lactulose (Cephulac) 10 gm THREE TIMES A DAY ORAL 04/29/18 13:30 05/29/18 13:29 05/09/18 13:37 Levetiracetam (Keppra) 500 mg EVERY 12 HOURS ORAL 04/24/18 21:00 05/24/18 20:59 05/09/18 09:22 Meropenem 1 gm/ Sodium Chloride 55 ml @ 110 mls/hr Q8HR IVPB 05/01/18 14:00 05/09/18 23:59 05/09/18 05:47 Metoclopramide HCl (Reglan) 10 mg Q8H PRN IVP Nausea & Vomiting 05/04/18 11:30 06/03/18 11:29 05/08/18 12:21 Micafungin Sodium 100 mg/Sodium Chloride 110 ml @ 110 mls/hr Q24H IVPB 05/08/18 13:00 05/15/18 12:59 05/09/18 13:37 Ondansetron HCl (Zofran) 4 mg Q6H PRN IVP Nausea & Vomiting 04/24/18 17:15 05/24/18 17:14 05/09/18 11:05 Oxycodone HCl (Roxicodone) 5 mg Q4H PRN ORAL severe pain 05/07/18 22:15 05/14/18 22:14 05/09/18 11:53 Polyethylene Glycol (Miralax) 17 gm HSPRN PRN ORAL Constipation 04/24/18 17:15 05/24/18 17:14 Kelsie Ibarra M.D. May 09, 2018 13:58
--- NOTE | 2018-05-09 14:21 | NUR ---
*-* INSURANCE *-* REVIEWS HAVE BEEN FAXED TO: YENIFER LAUGHLIN PLEASE FAX THE REVIEW/CLINICAL NO WASTE OIL PUMPER ASSIGNED AT THIS TIME P- [phone] F- [phone]
--- NOTE | 2018-05-09 15:51 | General Progress Note ---
Assessment/Plan Problem List: (1) Head ache ICD Codes: R51 - Headache SNOMED: 84381456 (2) Weak ICD Codes: R53.1 - Weakness SNOMED: 88327187 (3) HTN (hypertension) ICD Codes: I10 - Essential (primary) hypertension SNOMED: 29356479 (4) Malnutrition ICD Codes: E46 - Unspecified protein-calorie malnutrition SNOMED: 93277297 (5) Epilepsy ICD Codes: G40.909 - Epilepsy, unspecified, not intractable, without status epilepticus SNOMED: 53904299 (6) Intractable pain ICD Codes: R52 - Pain, unspecified SNOMED: 02469469 (7) Phenytoin toxicity ICD Codes: T42.0X1A - Poisoning by hydantoin derivatives, accidental ( unintentional), initial encounter SNOMED: 75843847 Status: unchanged Assessment/Plan pt diet pain control neuro gi psyc eval abx prn cbc bmp am dc plan if clear Subjective Constitutional: Reports: weakness Allergies: Coded Allergies: GADOBUTROL (Verified Allergy, Intermediate, 04/30/18) PHENYTOIN (Verified Allergy, Unknown, 05/03/18) Drug hypersensitivity syndrome; hepatotoxicity Uncoded Allergies: CONTRAST (Allergy, Mild, Rash, 05/03/18) questionable if it was due to contrast; patient at the time (Mar-April 2018) also had dilantin reaction (probably rash was due to dilantin) All Systems: reviewed and negative except above Subjective anxious c/o head ache sl huccup Objective Last 24 Hour Vital Signs Date Time Temp Pulse Resp B/P (MAP) Pulse Ox O2 Delivery O2 Flow Rate FiO2 05/09/18 15:31 131/75 05/09/18 12:00 99.9 108 18 125/73 (90) 97 05/09/18 09:22 106 129/78 05/09/18 09:00 Room Air Room Air 05/09/18 08:00 98.4 106 18 129/78 (95) 97 05/09/18 05:45 136/77 05/09/18 04:00 98.7 107 18 111/65 (80) 97 05/09/18 00:00 99.5 110 18 104/61 (75) 95 05/08/18 21:49 126/69 05/08/18 21:00 Room Air Room Air 05/08/18 20:00 98.4 109 18 135/89 (104) 97 05/08/18 16:00 98.4 102 18 136/88 (104) 100 Intake and Output 05/08/18 05/09/18 19:00 07:00 Intake Total 800 ml 55 ml Output Total 800 ml Balance 0 ml 55 ml Intake Oral 800 ml IV Total 55 ml Output Urine Total 800 ml # Voids 4 Laboratory Tests 05/09/18 05:05: White Blood Count 13.9H, Red Blood Count 3.29L, Hemoglobin 10.6L, Hematocrit 32.1L, Mean Corpuscular Volume 98, Mean Corpuscular Hemoglobin 32.3H, Mean Corpuscular Hemoglobin Concent 33.0, Red Cell Distribution Width 13.2, Platelet Count 625H, Mean Platelet Volume 6.2L, Neutrophils (%) (Auto) , Lymphocytes (%) (Auto) , Monocytes (%) (Auto) , Eosinophils (%) (Auto) , Basophils (%) (Auto) , Differential Total Cells Counted 100, Neutrophils % (Manual) 41L, Lymphocytes % (Manual) 14L, Monocytes % (Manual) 10, Eosinophils % (Manual) 35H, Basophils % ( Manual) 0, Band Neutrophils 0, Platelet Estimate IncreasedH, Platelet Morphology Normal, Hypochromasia 1+, Anisocytosis 1+, Sodium Level 128L, Potassium Level 4.8, Chloride Level 94L, Carbon Dioxide Level 28, Anion Gap 6, Blood Urea Nitrogen 15, Creatinine 1.3, Estimat Glomerular Filtration Rate > 60 , Glucose Level 96, Calcium Level 8.6, Total Bilirubin 13.5H, Direct Bilirubin 11.1H, Aspartate Amino Transf (AST/SGOT) 131H, Alanine Aminotransferase (ALT/ SGPT) 88H, Alkaline Phosphatase 1937H, Total Protein 5.4L, Albumin 1.8L, Globulin 3.6, Albumin/Globulin Ratio 0.5L, Phenytoin (Dilantin) Level 24.1H, Levetiracetam (Keppra) Level [Pending] Height (Feet): 5 Height (Inches): 11.00 Weight (Pounds): 148 General Appearance: lethargic EENT: normal ENT inspection Neck: normal alignment Cardiovascular: normal peripheral pulses, normal rate, regular rhythm Respiratory/Chest: chest wall non-tender, lungs clear, normal breath sounds Abdomen: normal bowel sounds, non tender, soft Extremities: normal inspection Edema: no edema noted Arm (L), no edema noted Arm (R), no edema noted Leg (L), no edema noted Leg (R), no edema noted Pedal (L), no edema noted Pedal (R), no edema noted Generalized Neurologic: responsive, motor weakness Skin: normal pigmentation, warm/dry Neri Cat DO May 09, 2018 15:51
--- NOTE | 2018-05-09 15:51 | NUR ---
NURSE NOTES: RN received order to give cepacol for hiccups.
--- NOTE | 2018-05-09 16:00 | NUR ---
NURSE NOTES: Patient has low grade fever of 99.9, 99.7, 99.[address] Ibarra made aware with no new order. Patient was seen by Dr. Ibarra.
--- NOTE | 2018-05-09 17:06 | General Progress Note ---
Assessment/Plan Assessment/Plan (1) Headache (2) Brain neoplasm s/p craniotomy and resection Patient to be continued on Neurontin and Oxycodone. D/w Dr. Delarosa and he concurred. Subjective Date patient seen: May 09, 2018 Time patient seen: 03:00 - pm Allergies: Coded Allergies: GADOBUTROL (Verified Allergy, Intermediate, 04/30/18) PHENYTOIN (Verified Allergy, Unknown, 05/03/18) Drug hypersensitivity syndrome; hepatotoxicity Uncoded Allergies: CONTRAST (Allergy, Mild, Rash, 05/03/18) questionable if it was due to contrast; patient at the time (April 2018) also had dilantin reaction (probably rash was due to dilantin) Subjective REVIEW OF SYSTEMS: Denies rash, fever, chills, sweating, dizziness, drowsiness, blurred vision, sore throat, or change in his weight. No shortness of breath, chest pain, palpitations, or cough. No nausea, vomiting, diarrhea, or blood in stool or urine. He complains of headaches. SUBJECTIVE: Patient is in bed with sister at bedside. He continues to c/o pain and it has been tolerated on the Oxycodone. Objective Last 24 Hour Vital Signs Date Time Temp Pulse Resp B/P (MAP) Pulse Ox O2 Delivery O2 Flow Rate FiO2 05/09/18 16:00 99.1 115 20 135/74 (94) 97 05/09/18 15:31 131/75 05/09/18 12:00 99.9 108 18 125/73 (90) 97 05/09/18 09:22 106 129/78 05/09/18 09:00 Room Air Room Air 05/09/18 08:00 98.4 106 18 129/78 (95) 97 05/09/18 05:45 136/77 05/09/18 04:00 98.7 107 18 111/65 (80) 97 05/09/18 00:00 99.5 110 18 104/61 (75) 95 05/08/18 21:49 126/69 05/08/18 21:00 Room Air Room Air 05/08/18 20:00 98.4 109 18 135/89 (104) 97 Intake and Output 05/08/18 05/09/18 19:00 07:00 Intake Total 800 ml 55 ml Output Total 800 ml Balance 0 ml 55 ml Intake Oral 800 ml IV Total 55 ml Output Urine Total 800 ml # Voids 4 Laboratory Tests 05/09/18 05:05: White Blood Count 13.9H, Red Blood Count 3.29L, Hemoglobin 10.6L, Hematocrit 32.1L, Mean Corpuscular Volume 98, Mean Corpuscular Hemoglobin 32.3H, Mean Corpuscular Hemoglobin Concent 33.0, Red Cell Distribution Width 13.2, Platelet Count 625H, Mean Platelet Volume 6.2L, Neutrophils (%) (Auto) , Lymphocytes (%) (Auto) , Monocytes (%) (Auto) , Eosinophils (%) (Auto) , Basophils (%) (Auto) , Differential Total Cells Counted 100, Neutrophils % (Manual) 41L, Lymphocytes % (Manual) 14L, Monocytes % (Manual) 10, Eosinophils % (Manual) 35H, Basophils % ( Manual) 0, Band Neutrophils 0, Platelet Estimate IncreasedH, Platelet Morphology Normal, Hypochromasia 1+, Anisocytosis 1+, Sodium Level 128L, Potassium Level 4.8, Chloride Level 94L, Carbon Dioxide Level 28, Anion Gap 6, Blood Urea Nitrogen 15, Creatinine 1.3, Estimat Glomerular Filtration Rate > 60 , Glucose Level 96, Calcium Level 8.6, Total Bilirubin 13.5H, Direct Bilirubin 11.1H, Aspartate Amino Transf (AST/SGOT) 131H, Alanine Aminotransferase (ALT/ SGPT) 88H, Alkaline Phosphatase 1937H, Total Protein 5.4L, Albumin 1.8L, Globulin 3.6, Albumin/Globulin Ratio 0.5L, Phenytoin (Dilantin) Level 24.1H, Levetiracetam (Keppra) Level [Pending] Height (Feet): 5 Height (Inches): 11.00 Weight (Pounds): 148 Objective GENERAL: Alert, awake, and oriented. LUNGS: Clear bilaterally. HEART: S1 and S2, regular. ABDOMEN: Soft and nontender. EXTREMITIES: No cyanosis. No clubbing. No edema. NEURO: No changes. Albert Hoyos May 09, 2018 17:06
--- NOTE | 2018-05-09 18:45 | NUR ---
NURSE NOTES: Patient is aslep @ this time. No hiccups noted.
--- NOTE | 2018-05-09 19:16 | NUR ---
HAND-OFF: Report given to
--- NOTE | 2018-05-09 19:33 | NUR ---
NURSE NOTES: Patient asleep in bed. Family at bedside. Instructed the use of call light. Call light and needs in reach. Bed in lowest position, lock engaged and alarm on. Will continue to monitor.
--- NOTE | 2018-05-09 21:00 | NUR ---
NURSE NOTES: Called Dr. Ibarra for patient's temp 101.7. Waiting for call back. Dr. Armas made aware that patient doesn't have tylenol on the list. Waiting for respond.
--- NOTE | 2018-05-09 22:30 | NUR ---
NURSE NOTES: Spoke with TAXATION CONSULTANT Nithya that patient's family was asking if pt could have a different med for hiccups other than lozenge. Obtained order for Chlorpromazine, see ryanr. Inquired if he could give an order for Tylenol but they don't want to give patient hepatotoxic meds. Obtained order for Motrin for fever and blood culture x 2 sets. Cooling measures to the pt since the start of the fever.
[2018-05-10] MEDS: oxyCODONE 5mg IR tab ORAL PRN ×4 (03:50→22:49)
[2018-05-10 04:00] VITALS: BP 118/64
[2018-05-10 04:31] LABS: HEMATOCRIT 30.2 % (42.0-52.0); HEMOGLOBIN 9.9 G/DL (14.2-18.0); MEAN CORPUSCULAR VOLUME 97 FL (80-99); PLATELET COUNT 661 K/UL (150-450); RED BLOOD COUNT 3.11 M/UL (4.70-6.10); RED CELL DISTRIBUTION WIDTH 13.1 % (11.6-14.8); WHITE BLOOD COUNT 13.2 K/UL (4.8-10.8)
[2018-05-10 05:02] LABS: ALANINE AMINOTRANSFERASE 97 U/L (12-78); ALBUMIN 1.7 G/DL (3.4-5.0); ALBUMIN/GLOBULIN RATIO 0.5 (1.0-2.7); ALKALINE PHOSPHATASE 1992 U/L (46-116); ANION GAP 6 mmol/L (5-15); ASPARTATE AMINO TRANSFERASE 169 U/L (15-37); BILIRUBIN,TOTAL 14.9 MG/DL (0.2-1.0); BLOOD UREA NITROGEN 19 mg/dL (7-18); CALCIUM 8.4 MG/DL (8.5-10.1); CARBON DIOXIDE 28 MMOL/L (21-32); CHLORIDE 94 MMOL/L (98-107); CREATININE 1.5 MG/DL (0.55-1.30); POTASSIUM 5.7 MMOL/L (3.5-5.1); SODIUM 128 MMOL/L (136-145)
[2018-05-10 05:03] LABS: BILIRUBIN,DIRECT 12.6 MG/DL (0.0-0.3)
[2018-05-10] MEDS: HydrALAZINE 25mg tab ORAL SCH ×3 (05:37→21:20)
--- NOTE | 2018-05-10 07:08 | NUR ---
HAND-OFF: Report given to BELEN Castellanos.
--- NOTE | 2018-05-10 07:25 | NUR ---
NURSE NOTES: Dr. Cat made aware of Potassium and Sodium today. Waiting for further instructions. Endorsed to AM nurse.
--- NOTE | 2018-05-10 07:30 | NUR ---
NURSE NOTES: Received patient in bed, awake, verbally responsive. Patient is afebrile and no hiccups @ this time. IV intact, no s/s of infiltration. Bed is in lowest position and locked. Bed alarm is on and side rails padded for seizure precaution. Personnel items @ bedside. Patients sister @ bedside. Will continue plan of care.
[2018-05-10 08:00] VITALS: BP 106/63
--- NOTE | 2018-05-10 08:02 | NUR ---
NURSE NOTES: Hannah and spoke to Dr. Romero regarding potassium level of 5.7 and sodium of 128. RN relayed BUN/CR level with new order to start NS @ 100cc/hr, Lasix 40mg IV @ 12:00pm, add low potassium diet and do bladder scan. Order read back and carried out.
[2018-05-10] MEDS: Lactulose 10gm/15ml UDC ORAL SCH ×3 (08:22→17:29)
[2018-05-10] MEDS: Heparin 5000 units/ml inj SUBQ SCH ×2 (08:23→21:21)
--- NOTE | 2018-05-10 08:50 | General Progress Note ---
Assessment/Plan Assessment/Plan (1) Headache (2) Brain neoplasm s/p craniotomy and resection Patient to be continued on Neurontin and Oxycodone. D/w Dr. Delarosa and he concurred. Subjective Date patient seen: May 10, 2018 Time patient seen: 07:00 - am Allergies: Coded Allergies: GADOBUTROL (Verified Allergy, Intermediate, 04/30/18) PHENYTOIN (Verified Allergy, Unknown, 05/03/18) Drug hypersensitivity syndrome; hepatotoxicity Uncoded Allergies: CONTRAST (Allergy, Mild, Rash, 05/03/18) questionable if it was due to contrast; patient at the time (April 2018) also had dilantin reaction (probably rash was due to dilantin) Subjective REVIEW OF SYSTEMS: Denies rash, fever, chills, sweating, dizziness, drowsiness, blurred vision, sore throat, or change in his weight. No shortness of breath, chest pain, palpitations, or cough. No nausea, vomiting, diarrhea, or blood in stool or urine. He complains of headaches. SUBJECTIVE: Patient is in bed with sister at bedside. The pain has been stable on the Oxycodone. No new complaints at time. Objective Last 24 Hour Vital Signs Date Time Temp Pulse Resp B/P (MAP) Pulse Ox O2 Delivery O2 Flow Rate FiO2 05/10/18 08:46 90 106/63 05/10/18 04:00 98.2 98 18 118/64 (82) 98 05/09/18 23:57 101.1 116 17 112/67 (82) 95 05/09/18 22:21 101.1 05/09/18 22:00 112/65 05/09/18 21:00 Room Air Room Air 05/09/18 20:00 101.7 117 18 112/65 (81) 94 05/09/18 16:00 99.1 115 20 135/74 (94) 97 05/09/18 15:31 131/75 05/09/18 12:00 99.9 108 18 125/73 (90) 97 05/09/18 09:22 106 129/78 05/09/18 09:00 Room Air Room Air Intake and Output 05/09/18 05/10/18 19:00 07:00 Intake Total 510 ml Output Total 700 ml Balance -190 ml Intake Oral 400 ml IV Total 110 ml Output Urine Total 700 ml # Voids 11 4 Laboratory Tests 05/10/18 04:00: White Blood Count 13.2H, Red Blood Count 3.11L, Hemoglobin 9.9L, Hematocrit 30.2L, Mean Corpuscular Volume 97, Mean Corpuscular Hemoglobin 31.7H, Mean Corpuscular Hemoglobin Concent 32.7, Red Cell Distribution Width 13.1, Platelet Count 661H, Mean Platelet Volume 5.8L, Neutrophils (%) (Auto) , Lymphocytes (%) (Auto) , Monocytes (%) (Auto) , Eosinophils (%) (Auto) , Basophils (%) (Auto) , Sodium Level 128L, Potassium Level 5.7H, Chloride Level 94L, Carbon Dioxide Level 28, Anion Gap 6, Blood Urea Nitrogen 19H, Creatinine 1.5H, Estimat Glomerular Filtration Rate 58.4, Glucose Level 93, Calcium Level 8.4L, Total Bilirubin 14.9H, Direct Bilirubin 12.6H, Aspartate Amino Transf (AST/SGOT) 169H , Alanine Aminotransferase (ALT/SGPT) 97H, Alkaline Phosphatase 1992H, Total Protein 5.4L, Albumin 1.7L, Globulin 3.7, Albumin/Globulin Ratio 0.5L Height (Feet): 5 Height (Inches): 11.00 Weight (Pounds): 154 Objective GENERAL: Alert, awake, and oriented. LUNGS: Clear bilaterally. HEART: S1 and S2, regular. ABDOMEN: Soft and nontender. EXTREMITIES: No cyanosis. No clubbing. No edema. NEURO: No changes. Albert Hoyos May 10, 2018 08:50
--- NOTE | 2018-05-10 10:21 | GI Progress Note ---
Assessment/Plan Problems: (1) Weak ICD Codes: R53.1 - Weakness SNOMED: 75589317 (2) Malnutrition ICD Codes: E46 - Unspecified protein-calorie malnutrition SNOMED: 35074968 (3) Brain tumor ICD Codes: D49.6 - Neoplasm of unspecified behavior of brain SNOMED: 956999029 (4) Transaminitis ICD Codes: R74.0 - Nonspecific elevation of levels of transaminase and lactic acid dehydrogenase [LDH] SNOMED: 811079374, 159055850 (5) Anemia ICD Codes: D64.9 - Anemia, unspecified SNOMED: 042923442 (6) Intractable pain ICD Codes: R52 - Pain, unspecified SNOMED: 38028878 (7) Phenytoin toxicity ICD Codes: T42.0X1A - Poisoning by hydantoin derivatives, accidental ( unintentional), initial encounter SNOMED: 76226189 Status: not improved, unchanged Status Narrative Discussed with Dr. Kimball Assessment/Plan Head CT reviewed lipase normal abdominal US reviewed, negative Hepatitis panel, negative MRCP reviewed, negative for common bile duct dilation. Possible cholecystitis. 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 Avoid hepatotoxic drugs Keppra level ordered Thorazine as needed Advance diet OB stool r/o GI bleed monitor H&H, prn transfusions bowel regime ppi lactulose + xifaxan Trend LFTs Outpatient GI procedures The patient was seen and examined at bedside and all new and available data was reviewed in the patients chart. I agree with the above findings, impression and plan. (Patient seen earlier today. Signature stamp does not reflect patient encounter time.). - Barry Kimball MD Subjective Subjective Continues to have headaches nausea vomiting Hiccups Objective Last 24 Hour Vital Signs Date Time Temp Pulse Resp B/P (MAP) Pulse Ox O2 Delivery O2 Flow Rate FiO2 05/10/18 09:00 Room Air Room Air 05/10/18 08:46 90 106/63 05/10/18 08:00 97.0 90 16 106/63 (77) 96 05/10/18 04:00 98.2 98 18 118/64 (82) 98 05/09/18 23:57 101.1 116 17 112/67 (82) 95 3/12/19 22:21 101.1 05/09/18 22:00 112/65 05/09/18 21:00 Room Air Room Air 05/09/18 20:00 101.7 117 18 112/65 (81) 94 05/09/18 16:00 99.1 115 20 135/74 (94) 97 05/09/18 15:31 131/75 05/09/18 12:00 99.9 108 18 125/73 (90) 97 Intake and Output 05/09/18 05/10/18 19:00 07:00 Intake Total 510 ml Output Total 700 ml Balance -190 ml Intake Oral 400 ml IV Total 110 ml Output Urine Total 700 ml # Voids 11 4 Laboratory Tests Test 05/10/18 04:00 White Blood Count 13.2 K/UL (4.8-10.8) H Red Blood Count 3.11 M/UL (4.70-6.10) L Hemoglobin 9.9 G/DL (14.2-18.0) L Hematocrit 30.2 % (42.0-52.0) L Mean Corpuscular Volume 97 FL (80-99) Mean Corpuscular Hemoglobin 31.7 PG (27.0-31.0) H Mean Corpuscular Hemoglobin Concent 32.7 G/DL (32.0-36.0) Red Cell Distribution Width 13.1 % (11.6-14.8) Platelet Count 661 K/UL (150-450) H Mean Platelet Volume 5.8 FL (6.5-10.1) L Neutrophils (%) (Auto) % (45.0-75.0) Lymphocytes (%) (Auto) % (20.0-45.0) Monocytes (%) (Auto) % (1.0-10.0) Eosinophils (%) (Auto) % (0.0-3.0) Basophils (%) (Auto) % (0.0-2.0) Sodium Level 128 MMOL/L (136-145) L Potassium Level 5.7 MMOL/L (3.5-5.1) H Chloride Level 94 MMOL/L (98-107) L Carbon Dioxide Level 28 MMOL/L (21-32) Anion Gap 6 mmol/L (5-15) Blood Urea Nitrogen 19 mg/dL (7-18) H Creatinine 1.5 MG/DL (0.55-1.30) H Estimat Glomerular Filtration Rate 58.4 mL/min (>60) Glucose Level 93 MG/DL (74-106) Calcium Level 8.4 MG/DL (8.5-10.1) L Total Bilirubin 14.9 MG/DL (0.2-1.0) H Direct Bilirubin 12.6 MG/DL (0.0-0.3) H Aspartate Amino Transf (AST/SGOT) 169 U/L (15-37) H Alanine Aminotransferase (ALT/SGPT) 97 U/L (12-78) H Alkaline Phosphatase 1992 U/L (46-116) H Total Protein 5.4 G/DL (6.4-8.2) L Albumin 1.7 G/DL (3.4-5.0) L Globulin 3.7 g/dL Albumin/Globulin Ratio 0.5 (1.0-2.7) L Height (Feet): 5 Height (Inches): 11.00 Weight (Pounds): 154 General Appearance: WD/WN, no apparent distress, alert Cardiovascular: normal rate Respiratory/Chest: normal breath sounds, no respiratory distress Abdominal Exam: normal bowel sounds, non tender, soft Extremities: normal range of motion, non-tender Bhupendar Barriga NP May 10, 2018 10:21
[2018-05-10 12:00] VITALS: BP 101/61
--- NOTE | 2018-05-10 13:07 | NUR ---
NURSE NOTES: RN received a phone call from Dr. Korey Parada and received order to d/c katie. RN relayed that patient has seizure history and Dr. Parada said " Patient is on neurontine and I think keppra causes liver problem. " Order read back and carried out.
--- NOTE | 2018-05-10 14:12 | Surgery Progress Note ---
Surgery Progress Note Subjective Additional Comments Seen and examined at bedside. Family present at bedside. Patient states he is doing well his neurological status is much improved he is fully cooperative with exam. Denies any abdominal pain no nausea vomiting fever chills. Labs noted with leukocytosis and worsening LFTs and bilirubin. Patient is still fairly jaundiced. Objective Last 24 Hour Vital Signs Date Time Temp Pulse Resp B/P (MAP) Pulse Ox O2 Delivery O2 Flow Rate FiO2 05/10/18 14:00 103/64 05/10/18 12:00 97.4 95 16 101/61 (74) 96 05/10/18 09:00 Room Air Room Air 05/10/18 08:46 90 106/63 05/10/18 08:00 97.0 90 16 106/63 (77) 96 05/10/18 04:00 98.2 98 18 118/64 (82) 98 05/09/18 23:57 101.1 116 17 112/67 (82) 95 05/09/18 22:21 101.1 05/09/18 22:00 112/65 05/09/18 21:00 Room Air Room Air 05/09/18 20:00 101.7 117 18 112/65 (81) 94 05/09/18 16:00 99.1 115 20 135/74 (94) 97 05/09/18 15:31 131/75 I&O Intake and Output 05/09/18 05/10/18 18:59 06:59 Intake Total 510 ml Output Total 700 ml Balance -190 ml Intake Oral 400 ml IV Total 110 ml Output Urine Total 700 ml # Voids 11 4 Cardiovascular: RSR Respiratory: clear Abdomen: soft, flat, non-tender, non-distended Extremities: no tenderness, no cyanosis Laboratory Tests Test 05/10/18 04:00 White Blood Count 13.2 K/UL (4.8-10.8) H Red Blood Count 3.11 M/UL (4.70-6.10) L Hemoglobin 9.9 G/DL (14.2-18.0) L Hematocrit 30.2 % (42.0-52.0) L Mean Corpuscular Volume 97 FL (80-99) Mean Corpuscular Hemoglobin 31.7 PG (27.0-31.0) H Mean Corpuscular Hemoglobin Concent 32.7 G/DL (32.0-36.0) Red Cell Distribution Width 13.1 % (11.6-14.8) Platelet Count 661 K/UL (150-450) H Mean Platelet Volume 5.8 FL (6.5-10.1) L Neutrophils (%) (Auto) % (45.0-75.0) Lymphocytes (%) (Auto) % (20.0-45.0) Monocytes (%) (Auto) % (1.0-10.0) Eosinophils (%) (Auto) % (0.0-3.0) Basophils (%) (Auto) % (0.0-2.0) Sodium Level 128 MMOL/L (136-145) L Potassium Level 5.7 MMOL/L (3.5-5.1) H Chloride Level 94 MMOL/L (98-107) L Carbon Dioxide Level 28 MMOL/L (21-32) Anion Gap 6 mmol/L (5-15) Blood Urea Nitrogen 19 mg/dL (7-18) H Creatinine 1.5 MG/DL (0.55-1.30) H Estimat Glomerular Filtration Rate 58.4 mL/min (>60) Glucose Level 93 MG/DL (74-106) Calcium Level 8.4 MG/DL (8.5-10.1) L Total Bilirubin 14.9 MG/DL (0.2-1.0) H Direct Bilirubin 12.6 MG/DL (0.0-0.3) H Aspartate Amino Transf (AST/SGOT) 169 U/L (15-37) H Alanine Aminotransferase (ALT/SGPT) 97 U/L (12-78) H Alkaline Phosphatase 1992 U/L (46-116) H Total Protein 5.4 G/DL (6.4-8.2) L Albumin 1.7 G/DL (3.4-5.0) L Globulin 3.7 g/dL Albumin/Globulin Ratio 0.5 (1.0-2.7) L Plan Problems: (1) Transaminitis Assessment & Plan: reviewed chart discussed with GI likely due to drug toxicity. Her biopsy resulted and noted. Likely drug induced toxicity as no infectious or other process noted macro micro changes noted Rx reviewed and seems that most of his hepatotoxic medications have been DC'd. hep panel negative labs worsening (2) Elevated alkaline phosphatase level (3) Intractable pain Assessment & Plan: US noted - The liver is unremarkable. The gallbladder is unremarkable. The demonstrated part of the pancreas, aorta and IVC show no abnormalities. Both kidneys appear unremarkable. The spleen is normal in size. There is no biliary ductal dilatation identified. Doppler evaluation of the main portal vein shows patency. There is no ascites. No hydronephrosis seen. CBD is 3 mm. MRI noted - No definite gallstones. However, there is gallbladder wall edema and pericholecystic fluid. Could indicate acalculous acute cholecystitis or cholecystitis due to an occult calculus. Alternatively, this could represent reactive changes secondary to adjacent hepatocellular inflammation. Consider hepatobiliary nuclear scan if there is high clinical suspicion for acute cholecystitis. Negative for biliary ductal dilatation. HIDA noted - Poor hepatic tracer uptake, no biliary excretion. Findings most likely represents severe hepatocellular disease. Findings are nondiagnostic as regards cystic duct or common bile duct patency Liver biopsy with drug induced hepat changes possible acute acalculous cholecystitis. exam difficult given history labs with resolved leukocytosis lft's abnormal from drug toxicity - levels still elevated. trend labs okay for diet will follow clinically (4) Sepsis Jamin Lynch May 10, 2018 14:12
--- NOTE | 2018-05-10 14:29 | General Progress Note ---
Assessment/Plan Problem List: (1) Head ache ICD Codes: R51 - Headache SNOMED: 80364522 (2) Weak ICD Codes: R53.1 - Weakness SNOMED: 45513356 (3) HTN (hypertension) ICD Codes: I10 - Essential (primary) hypertension SNOMED: 68791264 (4) Malnutrition ICD Codes: E46 - Unspecified protein-calorie malnutrition SNOMED: 66125834 (5) Epilepsy ICD Codes: G40.909 - Epilepsy, unspecified, not intractable, without status epilepticus SNOMED: 85681082 (6) Intractable pain ICD Codes: R52 - Pain, unspecified SNOMED: 00301761 (7) Phenytoin toxicity ICD Codes: T42.0X1A - Poisoning by hydantoin derivatives, accidental ( unintentional), initial encounter SNOMED: 14238761 Status: unchanged Assessment/Plan pt diet pain control neuro gi psyc eval abx prn cbc bmp am dc plan if clear Subjective Constitutional: Reports: weakness Allergies: Coded Allergies: GADOBUTROL (Verified Allergy, Intermediate, 04/30/18) PHENYTOIN (Verified Allergy, Unknown, 05/03/18) Drug hypersensitivity syndrome; hepatotoxicity Uncoded Allergies: CONTRAST (Allergy, Mild, Rash, 05/03/18) questionable if it was due to contrast; patient at the time (Mar-April 2018) also had dilantin reaction (probably rash was due to dilantin) All Systems: reviewed and negative except above Subjective anxious c/o head ache Objective Last 24 Hour Vital Signs Date Time Temp Pulse Resp B/P (MAP) Pulse Ox O2 Delivery O2 Flow Rate FiO2 05/10/18 14:00 103/64 05/10/18 12:00 97.4 95 16 101/61 (74) 96 05/10/18 09:00 Room Air Room Air 05/10/18 08:46 90 106/63 05/10/18 08:00 97.0 90 16 106/63 (77) 96 05/10/18 04:00 98.2 98 18 118/64 (82) 98 05/09/18 23:57 101.1 116 17 112/67 (82) 95 05/09/18 22:21 101.1 05/09/18 22:00 112/65 05/09/18 21:00 Room Air Room Air 3/12/19 20:00 101.7 117 18 112/65 (81) 94 05/09/18 16:00 99.1 115 20 135/74 (94) 97 05/09/18 15:31 131/75 Intake and Output 05/09/18 05/10/18 18:59 06:59 Intake Total 510 ml Output Total 700 ml Balance -190 ml Intake Oral 400 ml IV Total 110 ml Output Urine Total 700 ml # Voids 11 4 Laboratory Tests 05/10/18 04:00: White Blood Count 13.2H, Red Blood Count 3.11L, Hemoglobin 9.9L, Hematocrit 30.2L, Mean Corpuscular Volume 97, Mean Corpuscular Hemoglobin 31.7H, Mean Corpuscular Hemoglobin Concent 32.7, Red Cell Distribution Width 13.1, Platelet Count 661H, Mean Platelet Volume 5.8L, Neutrophils (%) (Auto) , Lymphocytes (%) (Auto) , Monocytes (%) (Auto) , Eosinophils (%) (Auto) , Basophils (%) (Auto) , Sodium Level 128L, Potassium Level 5.7H, Chloride Level 94L, Carbon Dioxide Level 28, Anion Gap 6, Blood Urea Nitrogen 19H, Creatinine 1.5H, Estimat Glomerular Filtration Rate 58.4, Glucose Level 93, Calcium Level 8.4L, Total Bilirubin 14.9H, Direct Bilirubin 12.6H, Aspartate Amino Transf (AST/SGOT) 169H , Alanine Aminotransferase (ALT/SGPT) 97H, Alkaline Phosphatase 1992H, Total Protein 5.4L, Albumin 1.7L, Globulin 3.7, Albumin/Globulin Ratio 0.5L Height (Feet): 5 Height (Inches): 11.00 Weight (Pounds): 154 General Appearance: lethargic EENT: normal ENT inspection Neck: normal alignment Cardiovascular: normal peripheral pulses, normal rate, regular rhythm Respiratory/Chest: chest wall non-tender, lungs clear, normal breath sounds Abdomen: normal bowel sounds, non tender, soft Extremities: normal inspection Edema: no edema noted Arm (L), no edema noted Arm (R), no edema noted Leg (L), no edema noted Leg (R), no edema noted Pedal (L), no edema noted Pedal (R), no edema noted Generalized Neurologic: motor weakness Skin: normal pigmentation, warm/dry Neri Cat DO May 10, 2018 14:29
--- NOTE | 2018-05-10 15:27 | NUR ---
REHAB /P.T PROGRESS NOTES: PATIENT DEMONSTRATED SLOW PROGRESS IN THERAPY. PROGRESS IS LIMITED BY POOR ACTIVITY TOLERANCE AND CONSISTENT C/O HEADACHE. PATIENT CURRENTLY ABLE TO PERFORM BED MOBILITY AND TRANSFER GAIT ACTIVITIES USING THE FWW WITH ASSISTANCE FLUCTUATES FROM MIN-MAX A X 1 DEPENDING ON ENDURANCE AND TOLERANCE LEVEL. WILL CONTINUE WITH POC WITH PROGRESSION OF ACTIVITIES . RECOMMENDING SNF FOR FURTHER THERAPY UPON DC.
--- NOTE | 2018-05-10 15:38 | Infectious Diseases Prog Note ---
Assessment/Plan Assessment/Plan Assessment: Sepsis; improving- likely due to probable acute acalculous cholecystitis Fever , recurrent- probably due to drug induced hepatitis ?PNA -CXR: Mildly increased interstitial markings. This is nonspecific and cannot exclude a mild bronchitis or interstitial pneumonitis. No focal consolidation. -wound cx craniotomy incision: MSSA (wound doesnt appaer infected) -bcx NTD -influenza sc neg Mild leukocytosis,recurrent; improving Elevated LFTs, improving (probably due to both cholecystitis and toxic phenytoin levels); Elev alk and Leno )ALP >> AST, ALT); worsening- Probas[place] Acute acalculous cholecystitis -05/05 SP Liver biopsy: verbal report drug induced. -HIDA scan: Poor hepatic tracer uptake, no biliary excretion. Findings most likely represents severe hepatocellular disease. Findings are nondiagnostic as regards cystic duct or common bile duct patency -MRCP:No definite gallstones. However, there is gallbladder wall edema and pericholecystic fluid. Could indicate acalculous acute cholecystitis or cholecystitis due to an occult calculus. Alternatively, this could represent reactive changes secondary to adjacent hepatocellular inflammation. Consider hepatobiliary nuclear scan if there is high clinical suspicion for acute cholecystitis. Negative for biliary ductal dilatation. Periportal edema. This can be seen acute hepatitis or right heart failure, among other possibilities -Abd US: No acute findings. 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 Please correlate with the surgical history. Some enhancement of the dura along the anterior interhemispheric fissure and within the surgical bed is not unexpected given the recent surgery. However, the possibility of residual neoplasm is not excludable. There are no reference studies to compare to the preoperative MRI available. Other notable postsurgical finding includes a small fluid collection within the surgical bed deep to the bifrontal craniotomy flap and mild edema within the frontal lobes -CT brain wo: Postsurgical changes associated with relatively recent bifrontal craniotomy likely resection of a mass in the area of the interhemispheric fissure. 6 mm thick mixed attenuation extra-axial blood noted within the surgical bed. Please correlate with the operative report and comparison with prior studies is strongly recommended. -ESR 42, CRP 16.2 -HIV ag/ab neg MICHELLE (supratherapuetic vanco levels) Recent Brain tumor removal (1 month ago) seizure disorder GERD Tobacco use Drug rash-?culprit (present before antibiotics) Plan: -Given drug induced liver damage on pathology - will do an antibiotic free period to evaluate if any of these are a potential culprit. -f/u Repeat Bcx x2 -05/09 SP Meropenem #9, Micafungin #2 -3/5 SP IV Vancomycin #7 -/4 SP Cefepime #6 -Will hold on LP for now as an alternative source of sepsis is considered -Monitor CBC/CMP, temperatures -GI, Sx f/u: ; ?cholecystostomy -Nuero fu: holding Phenytoin (toxic levels; also probable drug induced hypersensitize syndrome as had rash, eosinophilia and hepatoxicity) Subjective Allergies: Coded Allergies: GADOBUTROL (Verified Allergy, Intermediate, 04/30/18) PHENYTOIN (Verified Allergy, Unknown, 05/03/18) Drug hypersensitivity syndrome; hepatotoxicity Uncoded Allergies: CONTRAST (Allergy, Mild, Rash, 05/03/18) questionable if it was due to contrast; patient at the time (Mar-April 2018) also had dilantin reaction (probably rash was due to dilantin) Subjective Tm 101.1 leukocytosis improving ALP and Tbili continues to worsen AST and ALT worsening now off abx Objective Vital Signs Last 24 Hour Vital Signs Date Time Temp Pulse Resp B/P (MAP) Pulse Ox O2 Delivery O2 Flow Rate FiO2 05/10/18 14:00 103/64 05/10/18 12:00 97.4 95 16 101/61 (74) 96 05/10/18 09:00 Room Air Room Air 05/10/18 08:46 90 106/63 05/10/18 08:00 97.0 90 16 106/63 (77) 96 05/10/18 04:00 98.2 98 18 118/64 (82) 98 05/09/18 23:57 101.1 116 17 112/67 (82) 95 05/09/18 22:21 101.1 05/09/18 22:00 112/65 05/09/18 21:00 Room Air Room Air 05/09/18 20:00 101.7 117 18 112/65 (81) 94 05/09/18 16:00 99.1 115 20 135/74 (94) 97 05/09/18 15:31 131/75 Height (Feet): 5 Height (Inches): 11.00 Weight (Pounds): 154 Objective HEAD: craniotomy scar with some superficial ulceration on R left side- no signs of infection GENERAL: Anxious in bed, oriented x2, in no acute distress. CARDIOVASCULAR: No murmur. LUNGS: Distant and clear. ABDOMEN: Bowel sounds positive. Nontender. Nondistended. EXTREMITIES: No cyanosis, clubbing, or edema. NEUROLOGIC: The patient moves all extremities. Slight weakness in extremities. Skin: maculopapular rash in torso, arms Microbiology Date/Time Source Procedure Growth Status 05/08/18 12:00 Blood Blood Culture - Preliminary NO GROWTH AFTER 24 HOURS Resulted 05/08/18 12:00 Blood Blood Culture - Preliminary NO GROWTH AFTER 24 HOURS Resulted Laboratory Tests Test 05/10/18 04:00 White Blood Count 13.2 K/UL (4.8-10.8) H Red Blood Count 3.11 M/UL (4.70-6.10) L Hemoglobin 9.9 G/DL (14.2-18.0) L Hematocrit 30.2 % (42.0-52.0) L Mean Corpuscular Volume 97 FL (80-99) Mean Corpuscular Hemoglobin 31.7 PG (27.0-31.0) H Mean Corpuscular Hemoglobin Concent 32.7 G/DL (32.0-36.0) Red Cell Distribution Width 13.1 % (11.6-14.8) Platelet Count 661 K/UL (150-450) H Mean Platelet Volume 5.8 FL (6.5-10.1) L Neutrophils (%) (Auto) % (45.0-75.0) Lymphocytes (%) (Auto) % (20.0-45.0) Monocytes (%) (Auto) % (1.0-10.0) Eosinophils (%) (Auto) % (0.0-3.0) Basophils (%) (Auto) % (0.0-2.0) Sodium Level 128 MMOL/L (136-145) L Potassium Level 5.7 MMOL/L (3.5-5.1) H Chloride Level 94 MMOL/L (98-107) L Carbon Dioxide Level 28 MMOL/L (21-32) Anion Gap 6 mmol/L (5-15) Blood Urea Nitrogen 19 mg/dL (7-18) H Creatinine 1.5 MG/DL (0.55-1.30) H Estimat Glomerular Filtration Rate 58.4 mL/min (>60) Glucose Level 93 MG/DL (74-106) Calcium Level 8.4 MG/DL (8.5-10.1) L Total Bilirubin 14.9 MG/DL (0.2-1.0) H Direct Bilirubin 12.6 MG/DL (0.0-0.3) H Aspartate Amino Transf (AST/SGOT) 169 U/L (15-37) H Alanine Aminotransferase (ALT/SGPT) 97 U/L (12-78) H Alkaline Phosphatase 1992 U/L (46-116) H Total Protein 5.4 G/DL (6.4-8.2) L Albumin 1.7 G/DL (3.4-5.0) L Globulin 3.7 g/dL Albumin/Globulin Ratio 0.5 (1.0-2.7) L Current Medications Medications (Trade) Dose Ordered Sig/Obdulia Route PRN Reason Start Time Stop Time Status Last Admin Dose Admin Al Hydroxide/Mg Hydroxide (Mylanta II) 30 ml Q6H PRN ORAL dyspepsia 04/24/18 17:15 05/24/18 17:14 Amlodipine Besylate (Norvasc) 10 mg DAILY ORAL 04/25/18 09:00 05/25/18 08:59 05/09/18 09:22 Cetylpyridinium Chloride (Cepacol) 1 lozg Q2H PRN JORGE LUIS Discomfort from hiccups 05/09/18 15:45 06/08/18 15:44 05/09/18 16:10 Chlorpromazine (Thorazine) 25 mg Q6H PRN ORAL hiccups 05/09/18 21:15 06/08/18 21:14 Dextrose (Dextrose 50%) 25 ml Q30M PRN IV Hypoglycemia 04/24/18 17:15 05/24/18 17:14 Dextrose (Dextrose 50%) 50 ml Q30M PRN IV Hypoglycemia 04/24/18 17:15 05/24/18 17:14 Diphenhydramine HCl (Benadryl) 25 mg Q6H PRN IVP Itching 04/26/18 16:30 05/26/18 16:29 05/02/18 23:53 Folic Acid (Folate) 1 mg DAILY ORAL 04/25/18 12:00 05/25/18 11:59 05/10/18 08:22 Gabapentin (Neurontin) 300 mg ACBREAKFAST ORAL 05/06/18 06:30 06/05/18 06:29 05/10/18 05:37 Gabapentin (Neurontin) 300 mg BEDTIME ORAL 05/05/18 21:00 06/04/18 20:59 05/09/18 20:33 Gabapentin (Neurontin) 600 mg QPM ORAL 05/06/18 16:30 05/25/18 17:59 05/09/18 16:10 Heparin Sodium (Porcine) (Heparin 5000 units/ml) 5,000 units EVERY 12 HOURS SUBQ 04/24/18 21:00 05/24/18 20:59 05/10/18 08:23 Hydralazine HCl (Apresoline) 25 mg EVERY 8 HOURS ORAL 04/24/18 22:00 05/24/18 21:59 05/09/18 15:31 Ibuprofen (Advil) 400 mg Q6H PRN ORAL fever (temp>100.5F) 05/09/18 21:45 06/08/18 21:44 05/09/18 21:51 Lactulose (Cephulac) 10 gm THREE TIMES A DAY ORAL 04/29/18 13:30 05/29/18 13:29 05/10/18 12:29 Metoclopramide HCl (Reglan) 10 mg Q8H PRN IVP Nausea & Vomiting 05/04/18 11:30 06/03/18 11:29 05/08/18 12:21 Ondansetron HCl (Zofran) 4 mg Q6H PRN IVP Nausea & Vomiting 04/24/18 17:15 05/24/18 17:14 05/10/18 12:29 Oxycodone HCl (Roxicodone) 5 mg Q4H PRN ORAL severe pain 05/07/18 22:15 3/17/19 22:14 05/10/18 15:05 Polyethylene Glycol (Miralax) 17 gm HSPRN PRN ORAL Constipation 04/24/18 17:15 05/24/18 17:14 Sodium Chloride 1,000 ml @ 100 mls/hr Q10H IV 05/10/18 08:00 06/09/18 07:59 05/10/18 08:23 Kelsie Ibarra M.D. May 10, 2018 15:38
--- NOTE | 2018-05-10 15:41 | NUR ---
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 BRAIN TUMOR VS: BP 101/61, P 98, T 97.0, RR 18, SpO2 96 WBC 13.2, BUN 19, CR 1.5, K 5.7, Na 128, Total Bilirubin 14.9, AST 169, ALT 97, Total Protein 5.4 IS: OXYCODONE 5mg GABAPENTIN 300 mg LACTULOSE 10gm KEPPRA 500 mg HEPARIN SUBQ ZOFRAN 4mg LASIX 40mg MED/SURG STATUS
[2018-05-10 16:00] VITALS: BP 106/61
--- NOTE | 2018-05-10 18:37 | NUR ---
NURSE NOTES: Patient urinated well during shift, no bladder distension.
--- NOTE | 2018-05-10 19:35 | NUR ---
HAND-OFF: Report given to
[2018-05-10 19:58] VITALS: BP 116/64
--- NOTE | 2018-05-10 20:08 | NUR ---
NURSE NOTES: Received patient comfortably sleeping in bed.Kept clean and dry.
[2018-05-11] VITALS: BP 116/70
[2018-05-11 04:00] VITALS: BP 135/77
[2018-05-11] MEDS: HydrALAZINE 25mg tab ORAL SCH (05:37)
[2018-05-11 06:47] LABS: HEMATOCRIT 30.8 % (42.0-52.0); HEMOGLOBIN 10.2 G/DL (14.2-18.0); MEAN CORPUSCULAR VOLUME 97 FL (80-99); PLATELET COUNT 688 K/UL (150-450); RED BLOOD COUNT 3.17 M/UL (4.70-6.10); RED CELL DISTRIBUTION WIDTH 13.4 % (11.6-14.8); WHITE BLOOD COUNT 13.1 K/UL (4.8-10.8)
--- NOTE | 2018-05-11 07:04 | NUR ---
HAND-OFF: Report given to Sanford Deng RN.
[2018-05-11 07:37] LABS: ALANINE AMINOTRANSFERASE 110 U/L (12-78); ALBUMIN 1.8 G/DL (3.4-5.0); ALBUMIN/GLOBULIN RATIO 0.5 (1.0-2.7); ALKALINE PHOSPHATASE > 2000 U/L (46-116); ANION GAP 6 mmol/L (5-15); ASPARTATE AMINO TRANSFERASE 170 U/L (15-37); BILIRUBIN,TOTAL 16.2 MG/DL (0.2-1.0); BLOOD UREA NITROGEN 17 mg/dL (7-18); CALCIUM 8.6 MG/DL (8.5-10.1); CARBON DIOXIDE 27 MMOL/L (21-32); CHLORIDE 95 MMOL/L (98-107); CREATININE 1.3 MG/DL (0.55-1.30); POTASSIUM 4.7 MMOL/L (3.5-5.1); SODIUM 128 MMOL/L (136-145)
[2018-05-11 07:52] LABS: BILIRUBIN,DIRECT 13.5 MG/DL (0.0-0.3)
[2018-05-11 08:00] VITALS: BP 129/79
--- NOTE | 2018-05-11 08:48 | General Progress Note ---
Assessment/Plan Assessment/Plan (1) Headache (2) Brain neoplasm s/p craniotomy and resection Patient to be continued on Neurontin and Oxycodone. D/w Dr. Delarosa and he concurred. Subjective Date patient seen: May 11, 2018 Time patient seen: 08:00 - am Allergies: Coded Allergies: GADOBUTROL (Verified Allergy, Intermediate, 04/30/18) PHENYTOIN (Verified Allergy, Unknown, 05/03/18) Drug hypersensitivity syndrome; hepatotoxicity Uncoded Allergies: CONTRAST (Allergy, Mild, Rash, 05/03/18) questionable if it was due to contrast; patient at the time (April 2018) also had dilantin reaction (probably rash was due to dilantin) Subjective REVIEW OF SYSTEMS: Denies rash, fever, chills, sweating, dizziness, drowsiness, blurred vision, sore throat, or change in his weight. No shortness of breath, chest pain, palpitations, or cough. No nausea, vomiting, diarrhea, or blood in stool or urine. He complains of headaches. SUBJECTIVE: Patient has been stable pain is tolerated on the Oxycodone 3 doses in the last 24hrs. No new complaints at this time. Objective Last 24 Hour Vital Signs Date Time Temp Pulse Resp B/P (MAP) Pulse Ox O2 Delivery O2 Flow Rate FiO2 05/11/18 05:37 135/77 05/11/18 04:00 98.3 104 20 135/77 (96) 96 05/11/18 00:00 98.0 98 20 116/70 (85) 96 05/10/18 21:20 116/64 05/10/18 20:32 Room Air Room Air 05/10/18 19:58 98.7 102 20 116/64 (81) 98 05/10/18 16:00 98.8 98 16 106/61 (76) 95 05/10/18 14:00 103/64 05/10/18 12:00 97.4 95 16 101/61 (74) 96 05/10/18 09:00 Room Air Room Air Intake and Output 05/10/18 05/11/18 19:00 07:00 Intake Total 2000 ml 1200 ml Output Total 1100 ml 900 ml Balance 900 ml 300 ml Intake Oral 1000 ml IV Total 1000 ml 1200 ml Output Urine Total 1100 ml 900 ml Post Void Residual 0 ml Bladder Scan Volume Amount <10 ml # Voids 4 Laboratory Tests 05/11/18 05:35: White Blood Count 13.1H, Red Blood Count 3.17L, Hemoglobin 10.2L, Hematocrit 30.8L, Mean Corpuscular Volume 97, Mean Corpuscular Hemoglobin 32.2H, Mean Corpuscular Hemoglobin Concent 33.2, Red Cell Distribution Width 13.4, Platelet Count 688H, Mean Platelet Volume 5.8L, Neutrophils (%) (Auto) , Lymphocytes (%) (Auto) , Monocytes (%) (Auto) , Eosinophils (%) (Auto) , Basophils (%) (Auto) , Neutrophils % (Manual) [Pending], Lymphocytes % (Manual) [Pending], Platelet Estimate [Pending], Platelet Morphology [Pending], Sodium Level 128L, Potassium Level 4.7, Chloride Level 95L, Carbon Dioxide Level 27, Anion Gap 6, Blood Urea Nitrogen 17, Creatinine 1.3, Estimat Glomerular Filtration Rate > 60, Glucose Level 95, Calcium Level 8.6, Total Bilirubin 16.2H, Direct Bilirubin 13.5H, Aspartate Amino Transf (AST/SGOT) 170H, Alanine Aminotransferase (ALT/SGPT) 110H , Alkaline Phosphatase > 2000H, Total Protein 5.6L, Albumin 1.8L, Globulin 3.8, Albumin/Globulin Ratio 0.5L Height (Feet): 5 Height (Inches): 11.00 Weight (Pounds): 154 Objective GENERAL: Alert, awake, and oriented. LUNGS: Clear bilaterally. HEART: S1 and S2, regular. ABDOMEN: Soft and nontender. EXTREMITIES: No cyanosis. No clubbing. No edema. NEURO: No changes. Albert Hoyos May 11, 2018 08:48
[2018-05-11] MEDS: Lactulose 10gm/15ml UDC ORAL SCH ×3 (09:13→18:00)
[2018-05-11] MEDS: Heparin 5000 units/ml inj SUBQ SCH ×2 (09:18→20:51)
[2018-05-11] MEDS: oxyCODONE 5mg IR tab ORAL PRN (09:28)
--- NOTE | 2018-05-11 11:11 | Infectious Diseases Prog Note ---
Assessment/Plan Assessment/Plan Assessment: Sepsis; improving- likely due to probable acute acalculous cholecystitis Fever , recurrent- probably due to drug induced hepatitis ?PNA -CXR: Mildly increased interstitial markings. This is nonspecific and cannot exclude a mild bronchitis or interstitial pneumonitis. No focal consolidation. -wound cx craniotomy incision: MSSA (wound doesnt appaer infected) -bcx NTD -influenza sc neg Mild leukocytosis,recurrent; improving Elevated LFTs, improving (probably due to both cholecystitis and toxic phenytoin levels); Elev alk and Leno )ALP >> AST, ALT); worsening- -05/05 SP Liver biopsy: verbal report drug induced. -HIDA scan: Poor hepatic tracer uptake, no biliary excretion. Findings most likely represents severe hepatocellular disease. Findings are nondiagnostic as regards cystic duct or common bile duct patency -MRCP:No definite gallstones. However, there is gallbladder wall edema and pericholecystic fluid. Could indicate acalculous acute cholecystitis or cholecystitis due to an occult calculus. Alternatively, this could represent reactive changes secondary to adjacent hepatocellular inflammation. Consider hepatobiliary nuclear scan if there is high clinical suspicion for acute cholecystitis. Negative for biliary ductal dilatation. Periportal edema. This can be seen acute hepatitis or right heart failure, among other possibilities -Abd US: No acute findings. 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 Please correlate with the surgical history. Some enhancement of the dura along the anterior interhemispheric fissure and within the surgical bed is not unexpected given the recent surgery. However, the possibility of residual neoplasm is not excludable. There are no reference studies to compare to the preoperative MRI available. Other notable postsurgical finding includes a small fluid collection within the surgical bed deep to the bifrontal craniotomy flap and mild edema within the frontal lobes -CT brain wo: Postsurgical changes associated with relatively recent bifrontal craniotomy likely resection of a mass in the area of the interhemispheric fissure. 6 mm thick mixed attenuation extra-axial blood noted within the surgical bed. Please correlate with the operative report and comparison with prior studies is strongly recommended. -ESR 42, CRP 16.2 -HIV ag/ab neg MICHELLE (supratherapuetic vanco levels) Recent Brain tumor removal (1 month ago) seizure disorder GERD Tobacco use Drug rash- likely 2ry to Phenytoin Plan: -Given drug induced liver damage on pathology - will do an antibiotic free period to evaluate if any of these are a potential culprit. -f/u Repeat Bcx x2 -05/09 SP Meropenem #9, Micafungin #2 -3/5 SP IV Vancomycin #7 -3/4 SP Cefepime #6 -Will hold on LP for now as an alternative source of sepsis is considered -Monitor CBC/CMP, temperatures -GI, Sx f/u: ; ?cholecystostomy -?Transfer to [facility] with liver service (ie transplant service)- ALP and Tbili continues to worsened to toxic levels -Nuero fu: holding Phenytoin (toxic levels; also probable drug induced hypersensitize syndrome as had rash, eosinophilia and hepatoxicity) Subjective Allergies: Coded Allergies: GADOBUTROL (Verified Allergy, Intermediate, 04/30/18) PHENYTOIN (Verified Allergy, Unknown, 05/03/18) Drug hypersensitivity syndrome; hepatotoxicity Uncoded Allergies: CONTRAST (Allergy, Mild, Rash, 05/03/18) questionable if it was due to contrast; patient at the time (Mar-April 2018) also had dilantin reaction (probably rash was due to dilantin) Subjective afebrile >24hrs WBC stable at 13 ALP and Tbili continues to worsen, now >2000 and 16, respectively AST and ALT worsening now off abx Objective Vital Signs Last 24 Hour Vital Signs Date Time Temp Pulse Resp B/P (MAP) Pulse Ox O2 Delivery O2 Flow Rate FiO2 05/11/18 09:13 97 129/79 05/11/18 08:00 98.2 97 20 129/79 (96) 98 05/11/18 05:37 135/77 05/11/18 04:00 98.3 104 20 135/77 (96) 96 05/11/18 00:00 98.0 98 20 116/70 (85) 96 05/10/18 21:20 116/64 05/10/18 20:32 Room Air Room Air 05/10/18 19:58 98.7 102 20 116/64 (81) 98 05/10/18 16:00 98.8 98 16 106/61 (76) 95 05/10/18 14:00 103/64 05/10/18 12:00 97.4 95 16 101/61 (74) 96 Height (Feet): 5 Height (Inches): 11.00 Weight (Pounds): 154 Objective HEAD: craniotomy scar with some superficial ulceration on R left side- no signs of infection GENERAL: Anxious in bed, oriented x2, in no acute distress. CARDIOVASCULAR: No murmur. LUNGS: Distant and clear. ABDOMEN: Bowel sounds positive. Nontender. Nondistended. EXTREMITIES: No cyanosis, clubbing, or edema. NEUROLOGIC: The patient moves all extremities. Slight weakness in extremities. Skin: maculopapular rash in torso, arms Microbiology Date/Time Source Procedure Growth Status 05/09/18 23:55 Blood Blood Culture - Preliminary NO GROWTH AFTER 24 HOURS Resulted 05/09/18 23:40 Blood Blood Culture - Preliminary NO GROWTH AFTER 24 HOURS Resulted 05/08/18 12:00 Blood Blood Culture - Preliminary NO GROWTH AFTER 48 HOURS Resulted 05/08/18 12:00 Blood Blood Culture - Preliminary NO GROWTH AFTER 48 HOURS Resulted Laboratory Tests Test 05/11/18 05:35 White Blood Count 13.1 K/UL (4.8-10.8) H Red Blood Count 3.17 M/UL (4.70-6.10) L Hemoglobin 10.2 G/DL (14.2-18.0) L Hematocrit 30.8 % (42.0-52.0) L Mean Corpuscular Volume 97 FL (80-99) Mean Corpuscular Hemoglobin 32.2 PG (27.0-31.0) H Mean Corpuscular Hemoglobin Concent 33.2 G/DL (32.0-36.0) Red Cell Distribution Width 13.4 % (11.6-14.8) Platelet Count 688 K/UL (150-450) H Mean Platelet Volume 5.8 FL (6.5-10.1) L Neutrophils (%) (Auto) % (45.0-75.0) Lymphocytes (%) (Auto) % (20.0-45.0) Monocytes (%) (Auto) % (1.0-10.0) Eosinophils (%) (Auto) % (0.0-3.0) Basophils (%) (Auto) % (0.0-2.0) Differential Total Cells Counted 100 Neutrophils % (Manual) 55 % (45-75) Lymphocytes % (Manual) 3 % (20-45) L Monocytes % (Manual) 11 % (1-10) H Eosinophils % (Manual) 30 % (0-3) H Basophils % (Manual) 1 % (0-2) Band Neutrophils 0 % (0-8) Platelet Estimate Increased H Platelet Morphology Normal Target Cells 2+ Sodium Level 128 MMOL/L (136-145) L Potassium Level 4.7 MMOL/L (3.5-5.1) Chloride Level 95 MMOL/L (98-107) L Carbon Dioxide Level 27 MMOL/L (21-32) Anion Gap 6 mmol/L (5-15) Blood Urea Nitrogen 17 mg/dL (7-18) Creatinine 1.3 MG/DL (0.55-1.30) Estimat Glomerular Filtration Rate > 60 mL/min (>60) Glucose Level 95 MG/DL (74-106) Calcium Level 8.6 MG/DL (8.5-10.1) Total Bilirubin 16.2 MG/DL (0.2-1.0) H Direct Bilirubin 13.5 MG/DL (0.0-0.3) H Aspartate Amino Transf (AST/SGOT) 170 U/L (15-37) H Alanine Aminotransferase (ALT/SGPT) 110 U/L (12-78) H Alkaline Phosphatase > 2000 U/L (46-116) H Total Protein 5.6 G/DL (6.4-8.2) L Albumin 1.8 G/DL (3.4-5.0) L Globulin 3.8 g/dL Albumin/Globulin Ratio 0.5 (1.0-2.7) L Current Medications Medications (Trade) Dose Ordered Sig/Obdulia Route PRN Reason Start Time Stop Time Status Last Admin Dose Admin Al Hydroxide/Mg Hydroxide (Mylanta II) 30 ml Q6H PRN ORAL dyspepsia 04/24/18 17:15 05/24/18 17:14 Amlodipine Besylate (Norvasc) 10 mg DAILY ORAL 04/25/18 09:00 05/25/18 08:59 05/11/18 09:13 Cetylpyridinium Chloride (Cepacol) 1 lozg Q2H PRN JORGE LUIS Discomfort from hiccups 05/09/18 15:45 06/08/18 15:44 05/11/18 09:13 Chlorpromazine (Thorazine) 25 mg Q6H PRN ORAL hiccups 05/09/18 21:15 06/08/18 21:14 Dextrose (Dextrose 50%) 25 ml Q30M PRN IV Hypoglycemia 04/24/18 17:15 05/24/18 17:14 Dextrose (Dextrose 50%) 50 ml Q30M PRN IV Hypoglycemia 04/24/18 17:15 05/24/18 17:14 Diphenhydramine HCl (Benadryl) 25 mg Q6H PRN IVP Itching 04/26/18 16:30 05/26/18 16:29 05/02/18 23:53 Folic Acid (Folate) 1 mg DAILY ORAL 04/25/18 12:00 05/25/18 11:59 05/11/18 09:13 Gabapentin (Neurontin) 300 mg ACBREAKFAST ORAL 05/06/18 06:30 06/05/18 06:29 05/11/18 05:38 Gabapentin (Neurontin) 300 mg BEDTIME ORAL 05/05/18 21:00 06/04/18 20:59 05/10/18 21:20 Gabapentin (Neurontin) 600 mg QPM ORAL 05/06/18 16:30 05/25/18 17:59 05/10/18 17:29 Heparin Sodium (Porcine) (Heparin 5000 units/ml) 5,000 units EVERY 12 HOURS SUBQ 04/24/18 21:00 05/24/18 20:59 05/11/18 09:18 Hydralazine HCl (Apresoline) 25 mg EVERY 8 HOURS ORAL 04/24/18 22:00 05/24/18 21:59 05/11/18 05:37 Ibuprofen (Advil) 400 mg Q6H PRN ORAL fever (temp>100.5F) 05/09/18 21:45 06/08/18 21:44 05/09/18 21:51 Lactulose (Cephulac) 10 gm THREE TIMES A DAY ORAL 04/29/18 13:30 05/29/18 13:29 05/11/18 09:13 Metoclopramide HCl (Reglan) 10 mg Q8H PRN IVP Nausea & Vomiting 05/04/18 11:30 06/03/18 11:29 05/08/18 12:21 Ondansetron HCl (Zofran) 4 mg Q6H PRN IVP Nausea & Vomiting 04/24/18 17:15 05/24/18 17:14 05/10/18 12:29 Oxycodone HCl (Roxicodone) 5 mg Q4H PRN ORAL severe pain 05/07/18 22:15 05/14/18 22:14 05/11/18 09:28 Polyethylene Glycol (Miralax) 17 gm HSPRN PRN ORAL Constipation 04/24/18 17:15 05/24/18 17:14 Sodium Chloride 1,000 ml @ 100 mls/hr Q10H IV 05/10/18 08:00 06/09/18 07:59 05/11/18 03:34 Kelsie Ibarra M.D. May 11, 2018 11:11
--- NOTE | 2018-05-11 11:49 | NUR ---
NURSE NOTES: Received pt from BELEN ELLIS. Pt is forgetfull and orient x4. pt is in RA. No SOB or acute respiratory distress noted. pt has intact iv access LFA 22g is running well. Pt had hiccups and given med as order and pt is calm now. all needs attended, bed is locked and is in the lowest position, call light within easy reach. will continue to monitor.
[2018-05-11 12:00] VITALS: BP 118/78
--- NOTE | 2018-05-11 12:37 | NUR ---
*-* INSURANCE *-* REVIEWS HAVE BEEN FAXED TO: YENIFER LAUGHLIN PLEASE FAX THE REVIEW/CLINICAL NO ART THERAPY CERTIFIED SUPERVISOR ASSIGNED AT THIS TIME P- [phone] F- [phone]
--- NOTE | 2018-05-11 12:59 | General Progress Note ---
Assessment/Plan Problem List: (1) Head ache ICD Codes: R51 - Headache SNOMED: 76226767 (2) Weak ICD Codes: R53.1 - Weakness SNOMED: 34591330 (3) HTN (hypertension) ICD Codes: I10 - Essential (primary) hypertension SNOMED: 18612757 (4) Malnutrition ICD Codes: E46 - Unspecified protein-calorie malnutrition SNOMED: 28971897 (5) Epilepsy ICD Codes: G40.909 - Epilepsy, unspecified, not intractable, without status epilepticus SNOMED: 20078399 (6) Intractable pain ICD Codes: R52 - Pain, unspecified SNOMED: 33265544 (7) Phenytoin toxicity ICD Codes: T42.0X1A - Poisoning by hydantoin derivatives, accidental ( unintentional), initial encounter SNOMED: 48816941 Status: unchanged Assessment/Plan pt diet pain control neuro gi psyc eval abx prn cbc bmp am dc plan if clear Subjective Constitutional: Reports: weakness Allergies: Coded Allergies: GADOBUTROL (Verified Allergy, Intermediate, 04/30/18) PHENYTOIN (Verified Allergy, Unknown, 05/03/18) Drug hypersensitivity syndrome; hepatotoxicity Uncoded Allergies: CONTRAST (Allergy, Mild, Rash, 05/03/18) questionable if it was due to contrast; patient at the time (Mar-April 2018) also had dilantin reaction (probably rash was due to dilantin) All Systems: reviewed and negative except above Subjective sleepy calm Objective Last 24 Hour Vital Signs Date Time Temp Pulse Resp B/P (MAP) Pulse Ox O2 Delivery O2 Flow Rate FiO2 05/11/18 09:13 97 129/79 05/11/18 08:00 98.2 97 20 129/79 (96) 98 05/11/18 05:37 135/77 05/11/18 04:00 98.3 104 20 135/77 (96) 96 05/11/18 00:00 98.0 98 20 116/70 (85) 96 05/10/18 21:20 116/64 05/10/18 20:32 Room Air Room Air 05/10/18 19:58 98.7 102 20 116/64 (81) 98 05/10/18 16:00 98.8 98 16 106/61 (76) 95 05/10/18 14:00 103/64 Intake and Output 05/10/18 05/11/18 19:00 07:00 Intake Total 2000 ml 1200 ml Output Total 1100 ml 900 ml Balance 900 ml 300 ml Intake Oral 1000 ml IV Total 1000 ml 1200 ml Output Urine Total 1100 ml 900 ml Post Void Residual 0 ml Bladder Scan Volume Amount <10 ml # Voids 4 Laboratory Tests 05/11/18 05:35: White Blood Count 13.1H, Red Blood Count 3.17L, Hemoglobin 10.2L, Hematocrit 30.8L, Mean Corpuscular Volume 97, Mean Corpuscular Hemoglobin 32.2H, Mean Corpuscular Hemoglobin Concent 33.2, Red Cell Distribution Width 13.4, Platelet Count 688H, Mean Platelet Volume 5.8L, Neutrophils (%) (Auto) , Lymphocytes (%) (Auto) , Monocytes (%) (Auto) , Eosinophils (%) (Auto) , Basophils (%) (Auto) , Differential Total Cells Counted 100, Neutrophils % (Manual) 55, Lymphocytes % ( Manual) 3L, Monocytes % (Manual) 11H, Eosinophils % (Manual) 30H, Basophils % ( Manual) 1, Band Neutrophils 0, Platelet Estimate IncreasedH, Platelet Morphology Normal, Target Cells 2+, Sodium Level 128L, Potassium Level 4.7, Chloride Level 95L, Carbon Dioxide Level 27, Anion Gap 6, Blood Urea Nitrogen 17 , Creatinine 1.3, Estimat Glomerular Filtration Rate > 60, Glucose Level 95, Calcium Level 8.6, Total Bilirubin 16.2H, Direct Bilirubin 13.5H, Aspartate Amino Transf (AST/SGOT) 170H, Alanine Aminotransferase (ALT/SGPT) 110H, Alkaline Phosphatase > 2000H, Total Protein 5.6L, Albumin 1.8L, Globulin 3.8, Albumin/Globulin Ratio 0.5L Height (Feet): 5 Height (Inches): 11.00 Weight (Pounds): 154 General Appearance: lethargic EENT: normal ENT inspection Neck: normal alignment Cardiovascular: normal peripheral pulses, normal rate, regular rhythm Respiratory/Chest: chest wall non-tender, lungs clear, normal breath sounds Abdomen: normal bowel sounds, non tender, soft Extremities: normal inspection Edema: no edema noted Arm (L), no edema noted Arm (R), no edema noted Leg (L), no edema noted Leg (R), no edema noted Pedal (L), no edema noted Pedal (R), no edema noted Generalized Neurologic: motor weakness Skin: normal pigmentation, warm/dry Neri Cat DO May 11, 2018 12:59
--- NOTE | 2018-05-11 13:13 | Progress Note ---
DATE: 05/10/2018 I reviewed medical voucher. Apparently, Keppra can cause hepatitis or DRESS syndrome. Therefore, I am stopping it. The patient's Dilantin is probably more likely culprit. Korey Parada MD DR: BECKY JOB#: [id number] CC:
--- NOTE | 2018-05-11 13:14 | Progress Note ---
DATE: 05/10/2018 SUBJECTIVE: The patient is doing better. He is much more awake and alert. He had Thorazine 25 mg and 1200 mg plus Neurontin. Today, his hiccups have disappeared. He does not have any headaches today. For his headaches, however the patient does not need any. His bilirubin is continuing to increase. PHYSICAL EXAMINATION: VITAL SIGNS: The temperature is 98.3 degrees, blood pressure is 118/64, respiratory rate is 18, pulse oximetry 98. HEENT: His corneals are yellow. NECK: The neck is supple. NEUROLOGIC EXAMINATION: MENTAL STATUS: He is more awake and has slightly decreased alertness. Date, he states it is March. Place, he does know where he is, but he knows he is in the hospital. Person, he is oriented to person. He could spell "world" forwards without difficulty, but could not spell "world" backwards. CRANIAL NERVE EXAMINATION: CRANIAL NERVE II: Visual esteban are intact to confrontation. CRANIAL NERVES III, IV, AND : Extraocular motility is full with saccadic smooth pursuit noted. decreased gaze evoked horizontal jerk nystagmus. Pupils are approximately 3 mm, round, light reactive. CRANIAL NERVE V: Not tested. CRANIAL NERVE VII: Facial strength is 5/5. CRANIAL NERVE VIII: Auditory acuity is intact bilaterally. CRANIAL NERVE XI: Sternocleidomastoid strength is 5/5. CRANIAL NERVE XII: Tongue protrudes in the midline. MUSCLE EXAMINATION: Muscle bulk is symmetrically decreased. Tone is normal. Strength is probably 5/5. There is minimal asterixis. REFLEXES: Zero in the upper and lower extremities. IMPRESSION: The patient has multifocal metabolic encephalopathy related to Dilantin toxicity and liver disease. His white count is still elevated. There is no pathology report yet. The patient also has a rash. The patient's hemoglobin is also decreasing and the eosinophilic count is very high suggesting the possibility of allergic problem, maybe steroid should be considered. . The patient is improving. He probably does not need EEG or another MRI scan . The patient EEG, take that out .The patient's EEG revealed diffuse slowing consistent with his encephalopathy. PLAN: 1. Consider steroids. 2. Continue medications. Korey MD Karma DR: BECKY JOB#: [id number] CC:
--- NOTE | 2018-05-11 13:35 | NUR ---
RD ASSESSMENT & RECOMMENDATIONS SEE CARE ACTIVITY FOR COMPLETE ASSESSMENT DAILY ESTIMATED NEEDS: Needs based on Underweight, hepatic, wound 66kg 25-35 kcals/kg 3631-3717 total kcals 1.25-1.5 g protein/kg 83-99 g total protein 25-30 mL/kg 8676-3975 total fluid mLs NUTRITION DIAGNOSIS: 1) Increased kcal and protein needs r/t low weight and wound healing as evidenced by pt is 84% of ideal body weight, w. poor po intake, w/ partial thickness anterior head injury. 2) Altered nutrition related lab values r/t clinical status, transaminitis as evidenced by elev T bili (16.2 trend up) w/ elev LFT's, elev NH3 (46). CURRENT DIET: Soft ms chopped + ensure TID PO DIET RECOMMENDATIONS: REC LOW NA/ LOW FAT DIET W/ CURRENT IMPROVED PO INTAKE ADDITIONAL RECOMMENDATIONS: 1) H/o seizures and brain tumor-- rec DIRECTOR OF INCOME TAX eval for appropriate texture 2) Add ENSURE 1 bottle TID w/ meals- monitor K labs, need for NEPRO 3) Wound care: ROGELIO BID + MVI + VIT C 250mg daily 4) Snacks in b/w meals, encourage po intake 5) Obtain a calibrated bed scale wt as able 6) Consider appetite stimulant if medically appropriate- poor PO 7) Routine BM regimen/ monitor BM regularity
--- NOTE | 2018-05-11 13:40 | NUR ---
[facility] SI:TRANSAMINITIS . BRAIN TUMOR VS: BP 135/77, P 104, T 98.0, RR 20, SpO2 98 WBC 13.1, RBC 3.1, Hgb 10.2, Na 128, Chloride 95, AST 170, ALT 110, Alk Phos >2000, Bilirubin 16.2 IS:NS IV x1L OXYCODONE HCI 5mg GABAPENTIN 300mg LACTULOSE 10gm NORVASC 10mg HEPARIN SUBQ MED/SURG STATUS
--- NOTE | 2018-05-11 13:43 | Nephrology Progress Note ---
Assessment/Plan Assessment 1. Hypovolemic hyponatremia 2.hyperkalemia 3. History of brain tumor, status post craniotomy. 4. History of seizure. Plan continue ivf monitoring renal function avoid NSAID Mix all ivpb with NS.9 Subjective Constitutional: Reports: no symptoms HEENT: Reports: no symptoms Genitourinary: Reports: no symptoms Neurologic/Psychiatric: Reports: no symptoms Subjective more responsive Objective Objective Last 24 Hour Vital Signs Date Time Temp Pulse Resp B/P (MAP) Pulse Ox O2 Delivery O2 Flow Rate FiO2 05/11/18 09:13 97 129/79 05/11/18 08:00 98.2 97 20 129/79 (96) 98 05/11/18 05:37 135/77 05/11/18 04:00 98.3 104 20 135/77 (96) 96 05/11/18 00:00 98.0 98 20 116/70 (85) 96 05/10/18 21:20 116/64 05/10/18 20:32 Room Air Room Air 05/10/18 19:58 98.7 102 20 116/64 (81) 98 05/10/18 16:00 98.8 98 16 106/61 (76) 95 05/10/18 14:00 103/64 Intake and Output 05/10/18 05/11/18 19:00 07:00 Intake Total 2000 ml 1200 ml Output Total 1100 ml 900 ml Balance 900 ml 300 ml Intake Oral 1000 ml IV Total 1000 ml 1200 ml Output Urine Total 1100 ml 900 ml Post Void Residual 0 ml Bladder Scan Volume Amount <10 ml # Voids 4 Laboratory Tests 05/11/18 05:35: White Blood Count 13.1H, Red Blood Count 3.17L, Hemoglobin 10.2L, Hematocrit 30.8L, Mean Corpuscular Volume 97, Mean Corpuscular Hemoglobin 32.2H, Mean Corpuscular Hemoglobin Concent 33.2, Red Cell Distribution Width 13.4, Platelet Count 688H, Mean Platelet Volume 5.8L, Neutrophils (%) (Auto) , Lymphocytes (%) (Auto) , Monocytes (%) (Auto) , Eosinophils (%) (Auto) , Basophils (%) (Auto) , Differential Total Cells Counted 100, Neutrophils % (Manual) 55, Lymphocytes % ( Manual) 3L, Monocytes % (Manual) 11H, Eosinophils % (Manual) 30H, Basophils % ( Manual) 1, Band Neutrophils 0, Platelet Estimate IncreasedH, Platelet Morphology Normal, Target Cells 2+, Sodium Level 128L, Potassium Level 4.7, Chloride Level 95L, Carbon Dioxide Level 27, Anion Gap 6, Blood Urea Nitrogen 17 , Creatinine 1.3, Estimat Glomerular Filtration Rate > 60, Glucose Level 95, Calcium Level 8.6, Total Bilirubin 16.2H, Direct Bilirubin 13.5H, Aspartate Amino Transf (AST/SGOT) 170H, Alanine Aminotransferase (ALT/SGPT) 110H, Alkaline Phosphatase > 2000H, Total Protein 5.6L, Albumin 1.8L, Globulin 3.8, Albumin/Globulin Ratio 0.5L Height (Feet): 5 Height (Inches): 11.00 Weight (Pounds): 154 Objective HEAD AND NECK: He has scar from the craniotomy. No LAD. Extraocular movement intact. Pupils are reactive to light and accommodation. LUNGS: Clear to auscultation. CARDIAC: Regular rate and rhythm. S1 and S2. No murmur. No rub. ABDOMEN: Soft, nontender, and nondistended. EXTREMITIES: No edema. No clubbing. No cyanosis. Marielena Romero MD May 11, 2018 13:43
--- NOTE | 2018-05-11 13:48 | GI Progress Note ---
Assessment/Plan Problems: (1) Weak ICD Codes: R53.1 - Weakness SNOMED: 25486918 (2) Malnutrition ICD Codes: E46 - Unspecified protein-calorie malnutrition SNOMED: 75553485 (3) Brain tumor ICD Codes: D49.6 - Neoplasm of unspecified behavior of brain SNOMED: 815562257 (4) Transaminitis ICD Codes: R74.0 - Nonspecific elevation of levels of transaminase and lactic acid dehydrogenase [LDH] SNOMED: 873790078, 931948453 (5) Anemia ICD Codes: D64.9 - Anemia, unspecified SNOMED: 715239325 (6) Intractable pain ICD Codes: R52 - Pain, unspecified SNOMED: 92335268 (7) Phenytoin toxicity ICD Codes: T42.0X1A - Poisoning by hydantoin derivatives, accidental ( unintentional), initial encounter SNOMED: 92346400 Status: not improved, unchanged Status Narrative Discussed with Dr. Kimball. Assessment/Plan Head CT reviewed lipase normal abdominal US reviewed, negative Hepatitis panel, negative MRCP reviewed, negative for common bile duct dilation. Possible cholecystitis. 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 MELD score = 28, patient may need tertiary care for liver transplant if LFTs do not improve over the weekend. will order social work to begin looking for center. Stop all hepatotoxic drugs Keppra level ordered Thorazine as needed Advance diet OB stool r/o GI bleed monitor H&H, prn transfusions bowel regime ppi lactulose + xifaxan The patient was seen and examined at bedside and all new and available data was reviewed in the patients chart. I agree with the above findings, impression and plan. (Patient seen earlier today. Signature stamp does not reflect patient encounter time.). - Barry Kimball MD Subjective Subjective Continues to have headaches nausea vomiting Hiccups Objective Last 24 Hour Vital Signs Date Time Temp Pulse Resp B/P (MAP) Pulse Ox O2 Delivery O2 Flow Rate FiO2 05/11/18 09:13 97 129/79 05/11/18 08:00 98.2 97 20 129/79 (96) 98 05/11/18 05:37 135/77 05/11/18 04:00 98.3 104 20 135/77 (96) 96 05/11/18 00:00 98.0 98 20 116/70 (85) 96 05/10/18 21:20 116/64 05/10/18 20:32 Room Air Room Air 05/10/18 19:58 98.7 102 20 116/64 (81) 98 05/10/18 16:00 98.8 98 16 106/61 (76) 95 05/10/18 14:00 103/64 Intake and Output 05/10/18 05/11/18 19:00 07:00 Intake Total 2000 ml 1200 ml Output Total 1100 ml 900 ml Balance 900 ml 300 ml Intake Oral 1000 ml IV Total 1000 ml 1200 ml Output Urine Total 1100 ml 900 ml Post Void Residual 0 ml Bladder Scan Volume Amount <10 ml # Voids 4 Laboratory Tests Test 05/11/18 05:35 White Blood Count 13.1 K/UL (4.8-10.8) H Red Blood Count 3.17 M/UL (4.70-6.10) L Hemoglobin 10.2 G/DL (14.2-18.0) L Hematocrit 30.8 % (42.0-52.0) L Mean Corpuscular Volume 97 FL (80-99) Mean Corpuscular Hemoglobin 32.2 PG (27.0-31.0) H Mean Corpuscular Hemoglobin Concent 33.2 G/DL (32.0-36.0) Red Cell Distribution Width 13.4 % (11.6-14.8) Platelet Count 688 K/UL (150-450) H Mean Platelet Volume 5.8 FL (6.5-10.1) L Neutrophils (%) (Auto) % (45.0-75.0) Lymphocytes (%) (Auto) % (20.0-45.0) Monocytes (%) (Auto) % (1.0-10.0) Eosinophils (%) (Auto) % (0.0-3.0) Basophils (%) (Auto) % (0.0-2.0) Differential Total Cells Counted 100 Neutrophils % (Manual) 55 % (45-75) Lymphocytes % (Manual) 3 % (20-45) L Monocytes % (Manual) 11 % (1-10) H Eosinophils % (Manual) 30 % (0-3) H Basophils % (Manual) 1 % (0-2) Band Neutrophils 0 % (0-8) Platelet Estimate Increased H Platelet Morphology Normal Target Cells 2+ Sodium Level 128 MMOL/L (136-145) L Potassium Level 4.7 MMOL/L (3.5-5.1) Chloride Level 95 MMOL/L (98-107) L Carbon Dioxide Level 27 MMOL/L (21-32) Anion Gap 6 mmol/L (5-15) Blood Urea Nitrogen 17 mg/dL (7-18) Creatinine 1.3 MG/DL (0.55-1.30) Estimat Glomerular Filtration Rate > 60 mL/min (>60) Glucose Level 95 MG/DL (74-106) Calcium Level 8.6 MG/DL (8.5-10.1) Total Bilirubin 16.2 MG/DL (0.2-1.0) H Direct Bilirubin 13.5 MG/DL (0.0-0.3) H Aspartate Amino Transf (AST/SGOT) 170 U/L (15-37) H Alanine Aminotransferase (ALT/SGPT) 110 U/L (12-78) H Alkaline Phosphatase > 2000 U/L (46-116) H Total Protein 5.6 G/DL (6.4-8.2) L Albumin 1.8 G/DL (3.4-5.0) L Globulin 3.8 g/dL Albumin/Globulin Ratio 0.5 (1.0-2.7) L Height (Feet): 5 Height (Inches): 11.00 Weight (Pounds): 154 General Appearance: WD/WN, no apparent distress, alert Cardiovascular: normal rate Respiratory/Chest: normal breath sounds, no respiratory distress Abdominal Exam: normal bowel sounds, non tender, soft Extremities: normal range of motion, non-tender Bhupendra Barriga NP May 11, 2018 13:48
--- NOTE | 2018-05-11 14:18 | Surgery Progress Note ---
Surgery Progress Note Subjective Additional Comments LFT's worse. leukocytosis stable. exam unchanged. still very jaundice. no pain. Objective Last 24 Hour Vital Signs Date Time Temp Pulse Resp B/P (MAP) Pulse Ox O2 Delivery O2 Flow Rate FiO2 05/11/18 09:13 97 129/79 05/11/18 08:00 98.2 97 20 129/79 (96) 98 05/11/18 05:37 135/77 05/11/18 04:00 98.3 104 20 135/77 (96) 96 05/11/18 00:00 98.0 98 20 116/70 (85) 96 05/10/18 21:20 116/64 05/10/18 20:32 Room Air Room Air 05/10/18 19:58 98.7 102 20 116/64 (81) 98 05/10/18 16:00 98.8 98 16 106/61 (76) 95 I&O Intake and Output 05/10/18 05/11/18 18:59 06:59 Intake Total 2000 ml 1200 ml Output Total 1100 ml 900 ml Balance 900 ml 300 ml Intake Oral 1000 ml IV Total 1000 ml 1200 ml Output Urine Total 1100 ml 900 ml Post Void Residual 0 ml Bladder Scan Volume Amount <10 ml # Voids 4 Drains: none Cardiovascular: RSR Respiratory: clear Abdomen: soft, non-tender, present bowel sounds, non-distended Extremities: no tenderness, no cyanosis Laboratory Tests Test 05/11/18 05:35 White Blood Count 13.1 K/UL (4.8-10.8) H Red Blood Count 3.17 M/UL (4.70-6.10) L Hemoglobin 10.2 G/DL (14.2-18.0) L Hematocrit 30.8 % (42.0-52.0) L Mean Corpuscular Volume 97 FL (80-99) Mean Corpuscular Hemoglobin 32.2 PG (27.0-31.0) H Mean Corpuscular Hemoglobin Concent 33.2 G/DL (32.0-36.0) Red Cell Distribution Width 13.4 % (11.6-14.8) Platelet Count 688 K/UL (150-450) H Mean Platelet Volume 5.8 FL (6.5-10.1) L Neutrophils (%) (Auto) % (45.0-75.0) Lymphocytes (%) (Auto) % (20.0-45.0) Monocytes (%) (Auto) % (1.0-10.0) Eosinophils (%) (Auto) % (0.0-3.0) Basophils (%) (Auto) % (0.0-2.0) Differential Total Cells Counted 100 Neutrophils % (Manual) 55 % (45-75) Lymphocytes % (Manual) 3 % (20-45) L Monocytes % (Manual) 11 % (1-10) H Eosinophils % (Manual) 30 % (0-3) H Basophils % (Manual) 1 % (0-2) Band Neutrophils 0 % (0-8) Platelet Estimate Increased H Platelet Morphology Normal Target Cells 2+ Sodium Level 128 MMOL/L (136-145) L Potassium Level 4.7 MMOL/L (3.5-5.1) Chloride Level 95 MMOL/L (98-107) L Carbon Dioxide Level 27 MMOL/L (21-32) Anion Gap 6 mmol/L (5-15) Blood Urea Nitrogen 17 mg/dL (7-18) Creatinine 1.3 MG/DL (0.55-1.30) Estimat Glomerular Filtration Rate > 60 mL/min (>60) Glucose Level 95 MG/DL (74-106) Calcium Level 8.6 MG/DL (8.5-10.1) Total Bilirubin 16.2 MG/DL (0.2-1.0) H Direct Bilirubin 13.5 MG/DL (0.0-0.3) H Aspartate Amino Transf (AST/SGOT) 170 U/L (15-37) H Alanine Aminotransferase (ALT/SGPT) 110 U/L (12-78) H Alkaline Phosphatase > 2000 U/L (46-116) H Total Protein 5.6 G/DL (6.4-8.2) L Albumin 1.8 G/DL (3.4-5.0) L Globulin 3.8 g/dL Albumin/Globulin Ratio 0.5 (1.0-2.7) L Plan Problems: (1) Transaminitis Assessment & Plan: reviewed chart discussed with GI likely due to drug toxicity. Her biopsy resulted and noted. Likely drug induced toxicity as no infectious or other process noted macro micro changes noted Rx reviewed and seems that most of his hepatotoxic medications have been DC'd. hep panel negative labs worsening Agree with GI labs worsening MELD noted. given no improvement, acute liver toxicity, will need transfer to liver transplant center (2) Elevated alkaline phosphatase level (3) Intractable pain Assessment & Plan: US noted - The liver is unremarkable. The gallbladder is unremarkable. The demonstrated part of the pancreas, aorta and IVC show no abnormalities. Both kidneys appear unremarkable. The spleen is normal in size. There is no biliary ductal dilatation identified. Doppler evaluation of the main portal vein shows patency. There is no ascites. No hydronephrosis seen. CBD is 3 mm. MRI noted - No definite gallstones. However, there is gallbladder wall edema and pericholecystic fluid. Could indicate acalculous acute cholecystitis or cholecystitis due to an occult calculus. Alternatively, this could represent reactive changes secondary to adjacent hepatocellular inflammation. Consider hepatobiliary nuclear scan if there is high clinical suspicion for acute cholecystitis. Negative for biliary ductal dilatation. HIDA noted - Poor hepatic tracer uptake, no biliary excretion. Findings most likely represents severe hepatocellular disease. Findings are nondiagnostic as regards cystic duct or common bile duct patency Liver biopsy with drug induced hepat changes possible acute acalculous cholecystitis. exam difficult given history labs with resolved leukocytosis lft's abnormal from drug toxicity - levels still elevated. trend labs okay for diet will follow clinically (4) Sepsis Jamin Lynch May 11, 2018 14:18
[2018-05-11] MEDS: chlorproMAZINE 25mg tab ORAL PRN (14:22)
[2018-05-11 16:00] VITALS: BP 127/79
--- NOTE | 2018-05-11 17:03 | NUR ---
NURSE NOTES: IV is iv spread sheet shows finished but iv N/S is still running. will continue to monitor.
--- NOTE | 2018-05-11 17:37 | NUR ---
Social Service Note SW discussed with VADIM GARCIA request for tertiary liver transplant center referral. VADIM will discuss further will MD's and insurance adviser.
--- NOTE | 2018-05-11 19:30 | NUR ---
NURSE NOTES: RECEIVED PATIENT LYING IN BED, AWAKE, ORIENTED TO PERSON/PLACE, DENIES PAIN. NO SIGNS AND SYMPTOMS OF ACUTE CARDIO RESPIRATORY DISTRESS/SHORTNESS OF BREATH, DENIES CHEST PAIN, NO EDEMA NOTED. WOUND TO FOREHEAD WITHOUT DRESSING/DRY. EYES JAUNDICED. DISCHARGE PLAN ONGOING/CASE MANAGEMENT/TERTIARY LIVER TRANSPLANT CENTER. NO REPORT OF GI DISTRESS, NO N/V/D. SIDE RAILS UP X3/BED IN LOWEST POSITION FOR SAFETY, CALL LIGHT WITHIN REACH. NAD. CONTINUE WITH CURRENT PLAN OF CARE.
[2018-05-11 20:00] VITALS: BP 134/80
[2018-05-12] VITALS: BP 139/79
[2018-05-12] MEDS: chlorproMAZINE 25mg tab ORAL PRN (00:35)
--- NOTE | 2018-05-12 00:41 | NUR ---
NURSE NOTES: PATIENT NOTED WITH HICCUPS, OFFERED THORAZINE, PATIENT AGREED, AFTER RETRIEVING MEDICATION AND PLACING IN MED CUP, PATIENT REFUSED MED. WASTED ON PYXIS.
[2018-05-12 04:00] VITALS: BP 145/84
--- NOTE | 2018-05-12 06:39 | NUR ---
NURSE NOTES: RESTED WELL, NO SIGNIFICANT CHANGE OF CONDITION NOTED THROUGHOUT THE NIGHT. SAFETY MAINTAINED. NAD.
[2018-05-12 07:18] LABS: HEMATOCRIT 28.4 % (42.0-52.0); HEMOGLOBIN 9.4 G/DL (14.2-18.0); MEAN CORPUSCULAR VOLUME 96 FL (80-99); PLATELET COUNT 714 K/UL (150-450); RED BLOOD COUNT 2.96 M/UL (4.70-6.10); RED CELL DISTRIBUTION WIDTH 13.8 % (11.6-14.8); WHITE BLOOD COUNT 10.9 K/UL (4.8-10.8)
[2018-05-12 07:30] LABS: ANION GAP 6 mmol/L (5-15); BLOOD UREA NITROGEN 15 mg/dL (7-18); CALCIUM 8.9 MG/DL (8.5-10.1); CARBON DIOXIDE 25 MMOL/L (21-32); CHLORIDE 97 MMOL/L (98-107); CREATININE 1.2 MG/DL (0.55-1.30); POTASSIUM 4.9 MMOL/L (3.5-5.1); SODIUM 128 MMOL/L (136-145)
--- NOTE | 2018-05-12 07:30 | NUR ---
NURSE NOTES: Received pt from BELEN CHAVEZ. Pt is forgetful and orient x3. Pt is in RA, No SOB or acute respiratory distress noted. pt has intact iv access LH 22g is running well. pt doesn't have BM for couple of days but he refused stool softener most of the times. explained risks to him. all needs attended, bed is locked and is in the lowest position, call light within easy reach. will continue to monitor.
[2018-05-12 07:47] LABS: ALANINE AMINOTRANSFERASE 116 U/L (12-78); ALBUMIN 1.7 G/DL (3.4-5.0); ALKALINE PHOSPHATASE > 2000 U/L (46-116); ASPARTATE AMINO TRANSFERASE 174 U/L (15-37); BILIRUBIN,DIRECT 13.1 MG/DL (0.0-0.3); BILIRUBIN,TOTAL 16.2 MG/DL (0.2-1.0)
[2018-05-12 08:00] VITALS: BP 121/76
--- NOTE | 2018-05-12 09:31 | General Progress Note ---
Assessment/Plan Assessment/Plan (1) Headache (2) Brain neoplasm s/p craniotomy and resection Patient to be continued on Neurontin and Oxycodone. D/w Dr. Delarosa and he concurred. Subjective Date patient seen: May 12, 2018 Time patient seen: 08:00 - am Allergies: Coded Allergies: GADOBUTROL (Verified Allergy, Intermediate, 04/30/18) PHENYTOIN (Verified Allergy, Unknown, 05/03/18) Drug hypersensitivity syndrome; hepatotoxicity Uncoded Allergies: CONTRAST (Allergy, Mild, Rash, 05/03/18) questionable if it was due to contrast; patient at the time (April 2018) also had dilantin reaction (probably rash was due to dilantin) Subjective REVIEW OF SYSTEMS: Denies rash, fever, chills, sweating, dizziness, drowsiness, blurred vision, sore throat, or change in his weight. No shortness of breath, chest pain, palpitations, or cough. No nausea, vomiting, diarrhea, or blood in stool or urine. SUBJECTIVE: Patient is in bed and reports no pain at this time. He states that the pain has been stable on the Oxycodone having one dose in the last 24hrs. He has no new complaints at this time. Objective Last 24 Hour Vital Signs Date Time Temp Pulse Resp B/P (MAP) Pulse Ox O2 Delivery O2 Flow Rate FiO2 05/12/18 04:00 99.0 101 17 145/84 (104) 99 05/12/18 00:00 98.6 99 18 139/79 (99) 97 05/11/18 21:08 Room Air Room Air 05/11/18 20:00 99.0 98 18 134/80 (98) 100 05/11/18 16:00 98.7 96 20 127/79 (95) 97 05/11/18 12:00 98.6 100 20 118/78 (91) 98 Intake and Output 05/11/18 05/12/18 19:00 07:00 Intake Total 1070 ml 1790 ml Output Total 1000 ml 2700 ml Balance 70 ml -910 ml Intake Oral 270 ml 690 ml IV Total 800 ml 1100 ml Output Urine Total 1000 ml 2700 ml Laboratory Tests 05/12/18 05:15: White Blood Count 10.9H, Red Blood Count 2.96L, Hemoglobin 9.4L, Hematocrit 28.4L, Mean Corpuscular Volume 96, Mean Corpuscular Hemoglobin 31.9H, Mean Corpuscular Hemoglobin Concent 33.2, Red Cell Distribution Width 13.8, Platelet Count 714H, Mean Platelet Volume 5.7L, Neutrophils (%) (Auto) , Lymphocytes (%) (Auto) , Monocytes (%) (Auto) , Eosinophils (%) (Auto) , Basophils (%) (Auto) , Neutrophils % (Manual) [Pending], Lymphocytes % (Manual) [Pending], Platelet Estimate [Pending], Platelet Morphology [Pending], Sodium Level 128L, Potassium Level 4.9, Chloride Level 97L, Carbon Dioxide Level 25, Anion Gap 6, Blood Urea Nitrogen 15, Creatinine 1.2, Estimat Glomerular Filtration Rate > 60, Glucose Level 87, Calcium Level 8.9, Total Bilirubin 16.2H, Direct Bilirubin 13.1H, Aspartate Amino Transf (AST/SGOT) 174H, Alanine Aminotransferase (ALT/SGPT) 116H , Alkaline Phosphatase > 2000H, Total Protein 5.4L, Albumin 1.7L Height (Feet): 5 Height (Inches): 11.00 Weight (Pounds): 154 Objective GENERAL: Alert, awake, and oriented. LUNGS: Clear bilaterally. HEART: S1 and S2, regular. ABDOMEN: Soft and nontender. EXTREMITIES: No cyanosis. No clubbing. No edema. NEURO: No changes. Albert Hoyos May 12, 2018 09:31
--- NOTE | 2018-05-12 09:53 | NUR ---
[employer] SI: TRANSAMINITIS . BRAIN TUMOR VS: BP145/84, P 101, T 99.0, RR 17, SpO2 99 WBC 10.9, RBC 2.96, Hgb 9.4, Hct 28.4, Total Bilirubin 16.2, AST 174, ALT 116, Alk. Phos. >1999 IS:NS IV x1L THORAZINE 25mg GABAPENTIN 300mg MED/SURG STATUS
[2018-05-12] MEDS: Lactulose 10gm/15ml UDC ORAL SCH ×3 (10:16→17:10)
[2018-05-12] MEDS: Heparin 5000 units/ml inj SUBQ SCH ×2 (10:22→20:53)
--- NOTE | 2018-05-12 10:41 | General Progress Note ---
Assessment/Plan Problem List: (1) History of craniotomy ICD Codes: Z98.890 - Other specified postprocedural states SNOMED: 85498241, 740686769 (2) Intractable pain ICD Codes: R52 - Pain, unspecified SNOMED: 30720558 (3) HTN (hypertension) ICD Codes: I10 - Essential (primary) hypertension SNOMED: 77910776 (4) Brain tumor ICD Codes: D49.6 - Neoplasm of unspecified behavior of brain SNOMED: 080008681 (5) Elevated alkaline phosphatase level ICD Codes: R74.8 - Abnormal levels of other serum enzymes SNOMED: 051085682 (6) Transaminitis ICD Codes: R74.0 - Nonspecific elevation of levels of transaminase and lactic acid dehydrogenase [LDH] SNOMED: 299287930, 660191074 (7) Anemia ICD Codes: D64.9 - Anemia, unspecified SNOMED: 241280421 Assessment/Plan Head CT reviewed lipase normal abdominal US reviewed, negative Hepatitis panel, negative MRCP reviewed, negative for common bile duct dilation. Possible cholecystitis. 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 MELD score = 28, patient may need tertiary care for liver transplant if LFTs do not improve over the weekend. will order social work to begin looking for center. Stop all hepatotoxic drugs Keppra level ordered Thorazine as needed Advance diet OB stool r/o GI bleed monitor H&H, prn transfusions bowel regime ppi lactulose + xifaxan Subjective ROS Limited/Unobtainable: Yes Allergies: Coded Allergies: GADOBUTROL (Verified Allergy, Intermediate, 04/30/18) PHENYTOIN (Verified Allergy, Unknown, 05/03/18) Drug hypersensitivity syndrome; hepatotoxicity Uncoded Allergies: CONTRAST (Allergy, Mild, Rash, 05/03/18) questionable if it was due to contrast; patient at the time (Mar-April 2018) also had dilantin reaction (probably rash was due to dilantin) Objective Last 24 Hour Vital Signs Date Time Temp Pulse Resp B/P (MAP) Pulse Ox O2 Delivery O2 Flow Rate FiO2 05/12/18 10:16 100 121/76 05/12/18 08:00 98.8 100 17 121/76 (91) 98 05/12/18 04:00 99.0 101 17 145/84 (104) 99 05/12/18 00:00 98.6 99 18 139/79 (99) 97 05/11/18 21:08 Room Air Room Air 05/11/18 20:00 99.0 98 18 134/80 (98) 100 05/11/18 16:00 98.7 96 20 127/79 (95) 97 05/11/18 12:00 98.6 100 20 118/78 (91) 98 Intake and Output 05/11/18 05/12/18 19:00 07:00 Intake Total 1070 ml 1790 ml Output Total 1000 ml 2700 ml Balance 70 ml -910 ml Intake Oral 270 ml 690 ml IV Total 800 ml 1100 ml Output Urine Total 1000 ml 2700 ml Laboratory Tests 05/12/18 05:15: White Blood Count 10.9H, Red Blood Count 2.96L, Hemoglobin 9.4L, Hematocrit 28.4L, Mean Corpuscular Volume 96, Mean Corpuscular Hemoglobin 31.9H, Mean Corpuscular Hemoglobin Concent 33.2, Red Cell Distribution Width 13.8, Platelet Count 714H, Mean Platelet Volume 5.7L, Neutrophils (%) (Auto) , Lymphocytes (%) (Auto) , Monocytes (%) (Auto) , Eosinophils (%) (Auto) , Basophils (%) (Auto) , Neutrophils % (Manual) [Pending], Lymphocytes % (Manual) [Pending], Platelet Estimate [Pending], Platelet Morphology [Pending], Sodium Level 128L, Potassium Level 4.9, Chloride Level 97L, Carbon Dioxide Level 25, Anion Gap 6, Blood Urea Nitrogen 15, Creatinine 1.2, Estimat Glomerular Filtration Rate > 60, Glucose Level 87, Calcium Level 8.9, Total Bilirubin 16.2H, Direct Bilirubin 13.1H, Aspartate Amino Transf (AST/SGOT) 174H, Alanine Aminotransferase (ALT/SGPT) 116H , Alkaline Phosphatase > 2000H, Total Protein 5.4L, Albumin 1.7L Height (Feet): 5 Height (Inches): 11.00 Weight (Pounds): 154 General Appearance: no apparent distress EENT: scleral icterus Neck: non-tender Cardiovascular: normal rate Respiratory/Chest: decreased breath sounds Abdomen: normal bowel sounds, non tender, soft Extremities: non-tender Vosoghi,Barry MD May 12, 2018 10:41
--- NOTE | 2018-05-12 11:31 | Surgery Progress Note ---
Surgery Progress Note Subjective Additional Comments family at bedside today praying with patient. he feels okay and unchanged. leukocytosis improved. LFT's still very elevated. exam unchanged. Objective Last 24 Hour Vital Signs Date Time Temp Pulse Resp B/P (MAP) Pulse Ox O2 Delivery O2 Flow Rate FiO2 05/12/18 10:16 100 121/76 05/12/18 08:00 98.8 100 17 121/76 (91) 98 05/12/18 04:00 99.0 101 17 145/84 (104) 99 05/12/18 00:00 98.6 99 18 139/79 (99) 97 05/11/18 21:08 Room Air Room Air 05/11/18 20:00 99.0 98 18 134/80 (98) 100 05/11/18 16:00 98.7 96 20 127/79 (95) 97 05/11/18 12:00 98.6 100 20 118/78 (91) 98 I&O Intake and Output 05/11/18 05/12/18 19:00 07:00 Intake Total 1070 ml 1790 ml Output Total 1000 ml 2700 ml Balance 70 ml -910 ml Intake Oral 270 ml 690 ml IV Total 800 ml 1100 ml Output Urine Total 1000 ml 2700 ml Cardiovascular: RSR Respiratory: clear Abdomen: soft, non-tender, present bowel sounds, non-distended Extremities: no tenderness, no cyanosis Laboratory Tests Test 05/12/18 05:15 White Blood Count 10.9 K/UL (4.8-10.8) H Red Blood Count 2.96 M/UL (4.70-6.10) L Hemoglobin 9.4 G/DL (14.2-18.0) L Hematocrit 28.4 % (42.0-52.0) L Mean Corpuscular Volume 96 FL (80-99) Mean Corpuscular Hemoglobin 31.9 PG (27.0-31.0) H Mean Corpuscular Hemoglobin Concent 33.2 G/DL (32.0-36.0) Red Cell Distribution Width 13.8 % (11.6-14.8) Platelet Count 714 K/UL (150-450) H Mean Platelet Volume 5.7 FL (6.5-10.1) L Neutrophils (%) (Auto) % (45.0-75.0) Lymphocytes (%) (Auto) % (20.0-45.0) Monocytes (%) (Auto) % (1.0-10.0) Eosinophils (%) (Auto) % (0.0-3.0) Basophils (%) (Auto) % (0.0-2.0) Differential Total Cells Counted Pending Neutrophils % (Manual) Pending Lymphocytes % (Manual) Pending Monocytes % (Manual) Pending Eosinophils % (Manual) Pending Platelet Estimate Pending Platelet Morphology Normal Macrocytosis 1+ Spherocytes Target Cells 1+ Tear Drop Cells Pending Sodium Level 128 MMOL/L (136-145) L Potassium Level 4.9 MMOL/L (3.5-5.1) Chloride Level 97 MMOL/L (98-107) L Carbon Dioxide Level 25 MMOL/L (21-32) Anion Gap 6 mmol/L (5-15) Blood Urea Nitrogen 15 mg/dL (7-18) Creatinine 1.2 MG/DL (0.55-1.30) Estimat Glomerular Filtration Rate > 60 mL/min (>60) Glucose Level 87 MG/DL (74-106) Calcium Level 8.9 MG/DL (8.5-10.1) Total Bilirubin 16.2 MG/DL (0.2-1.0) H Direct Bilirubin 13.1 MG/DL (0.0-0.3) H Aspartate Amino Transf (AST/SGOT) 174 U/L (15-37) H Alanine Aminotransferase (ALT/SGPT) 116 U/L (12-78) H Alkaline Phosphatase > 2000 U/L (46-116) H Total Protein 5.4 G/DL (6.4-8.2) L Albumin 1.7 G/DL (3.4-5.0) L Plan Problems: (1) Transaminitis Assessment & Plan: reviewed chart discussed with GI likely due to drug toxicity. Her biopsy resulted and noted. Likely drug induced toxicity as no infectious or other process noted macro micro changes noted Rx reviewed and seems that most of his hepatotoxic medications have been DC'd. hep panel negative labs worsening Agree with GI labs worsening MELD noted. given no improvement, acute liver toxicity, will need transfer to liver transplant center (2) Elevated alkaline phosphatase level (3) Intractable pain Assessment & Plan: US noted - The liver is unremarkable. The gallbladder is unremarkable. The demonstrated part of the pancreas, aorta and IVC show no abnormalities. Both kidneys appear unremarkable. The spleen is normal in size. There is no biliary ductal dilatation identified. Doppler evaluation of the main portal vein shows patency. There is no ascites. No hydronephrosis seen. CBD is 3 mm. MRI noted - No definite gallstones. However, there is gallbladder wall edema and pericholecystic fluid. Could indicate acalculous acute cholecystitis or cholecystitis due to an occult calculus. Alternatively, this could represent reactive changes secondary to adjacent hepatocellular inflammation. Consider hepatobiliary nuclear scan if there is high clinical suspicion for acute cholecystitis. Negative for biliary ductal dilatation. HIDA noted - Poor hepatic tracer uptake, no biliary excretion. Findings most likely represents severe hepatocellular disease. Findings are nondiagnostic as regards cystic duct or common bile duct patency Liver biopsy with drug induced hepat changes possible acute acalculous cholecystitis. exam difficult given history labs with resolved leukocytosis lft's abnormal from drug toxicity - levels still elevated. trend labs okay for diet will follow clinically (4) Sepsis Jamin Lynch May 12, 2018 11:31
[2018-05-12 12:00] VITALS: BP 122/70
--- NOTE | 2018-05-12 13:16 | General Progress Note ---
Assessment/Plan Problem List: (1) Head ache ICD Codes: R51 - Headache SNOMED: 13367225 (2) Weak ICD Codes: R53.1 - Weakness SNOMED: 17617128 (3) HTN (hypertension) ICD Codes: I10 - Essential (primary) hypertension SNOMED: 68553295 (4) Malnutrition ICD Codes: E46 - Unspecified protein-calorie malnutrition SNOMED: 54008989 (5) Epilepsy ICD Codes: G40.909 - Epilepsy, unspecified, not intractable, without status epilepticus SNOMED: 90455746 (6) Intractable pain ICD Codes: R52 - Pain, unspecified SNOMED: 16987882 (7) Phenytoin toxicity ICD Codes: T42.0X1A - Poisoning by hydantoin derivatives, accidental ( unintentional), initial encounter SNOMED: 27005740 Status: unchanged Assessment/Plan pt diet pain control neuro gi psyc eval abx prn cbc bmp am dc plan if clear Subjective Allergies: Coded Allergies: GADOBUTROL (Verified Allergy, Intermediate, 04/30/18) PHENYTOIN (Verified Allergy, Unknown, 05/03/18) Drug hypersensitivity syndrome; hepatotoxicity Uncoded Allergies: CONTRAST (Allergy, Mild, Rash, 05/03/18) questionable if it was due to contrast; patient at the time (Mar-April 2018) also had dilantin reaction (probably rash was due to dilantin) All Systems: reviewed and negative except above Subjective sleepy calm Objective Last 24 Hour Vital Signs Date Time Temp Pulse Resp B/P (MAP) Pulse Ox O2 Delivery O2 Flow Rate FiO2 05/12/18 12:00 98.8 97 17 122/70 (87) 97 05/12/18 10:16 100 121/76 05/12/18 09:00 Room Air Room Air 05/12/18 08:00 98.8 100 17 121/76 (91) 98 05/12/18 04:00 99.0 101 17 145/84 (104) 99 05/12/18 00:00 98.6 99 18 139/79 (99) 97 05/11/18 21:08 Room Air Room Air 05/11/18 20:00 99.0 98 18 134/80 (98) 100 05/11/18 16:00 98.7 96 20 127/79 (95) 97 Intake and Output 05/11/18 05/12/18 19:00 07:00 Intake Total 1070 ml 1790 ml Output Total 1000 ml 2700 ml Balance 70 ml -910 ml Intake Oral 270 ml 690 ml IV Total 800 ml 1100 ml Output Urine Total 1000 ml 2700 ml Laboratory Tests 05/12/18 05:15: White Blood Count 10.9H, Red Blood Count 2.96L, Hemoglobin 9.4L, Hematocrit 28.4L, Mean Corpuscular Volume 96, Mean Corpuscular Hemoglobin 31.9H, Mean Corpuscular Hemoglobin Concent 33.2, Red Cell Distribution Width 13.8, Platelet Count 714H, Mean Platelet Volume 5.7L, Neutrophils (%) (Auto) , Lymphocytes (%) (Auto) , Monocytes (%) (Auto) , Eosinophils (%) (Auto) , Basophils (%) (Auto) , Differential Total Cells Counted 100, Neutrophils % (Manual) 53, Lymphocytes % ( Manual) 9L, Monocytes % (Manual) 13H, Eosinophils % (Manual) 24H, Basophils % ( Manual) 1, Band Neutrophils 0, Platelet Estimate IncreasedH, Platelet Morphology Normal, Macrocytosis 1+, Spherocytes , Target Cells 1+, Tear Drop Cells , Sodium Level 128L, Potassium Level 4.9, Chloride Level 97L, Carbon Dioxide Level 25, Anion Gap 6, Blood Urea Nitrogen 15, Creatinine 1.2, Estimat Glomerular Filtration Rate > 60, Glucose Level 87, Calcium Level 8.9, Total Bilirubin 16.2H, Direct Bilirubin 13.1H, Aspartate Amino Transf (AST/SGOT) 174H , Alanine Aminotransferase (ALT/SGPT) 116H, Alkaline Phosphatase > 2000H, Total Protein 5.4L, Albumin 1.7L 05/12/18 11:15: Stool Occult Blood [Pending] Height (Feet): 5 Height (Inches): 11.00 Weight (Pounds): 154 General Appearance: lethargic EENT: normal ENT inspection Neck: normal alignment Cardiovascular: normal peripheral pulses, normal rate, regular rhythm Respiratory/Chest: chest wall non-tender, lungs clear, normal breath sounds Abdomen: normal bowel sounds, non tender, soft Extremities: normal inspection Edema: no edema noted Arm (L), no edema noted Arm (R), no edema noted Leg (L), no edema noted Leg (R), no edema noted Pedal (L), no edema noted Pedal (R), no edema noted Generalized Neurologic: motor weakness Skin: normal pigmentation, warm/dry Neri Cat DO May 12, 2018 13:16
[2018-05-12 16:00] VITALS: BP 117/74
--- NOTE | 2018-05-12 17:00 | Progress Note ---
DATE: 05/12/2018 SUBJECTIVE: The patient's mental status is improving. However, his liver function is actually getting a little worse, increasing bilirubin, increasing alkaline phosphatase, increasing AST and ALT, decreasing albumin. Yesterday, his Keppra has been discontinued. PHYSICAL EXAMINATION: VITAL SIGNS: Temperature is 98 degrees, pulse is 101, blood pressure 145/84, pulse oximetry is 99. MENTAL STATUS: He is much more alert and awake. He can spell "world" backwards. Date, he knows it is April 2018, does not know the day. Place, he is still not sure where he is at. Person, he is oriented to person. CRANIAL NERVE EXAMINATION: CRANIAL NERVE II: Visual esteban are intact to confrontation. CRANIAL NERVES III, IV, AND : Extraocular motility is full with saccadic smooth pursuit. Minimal gaze evoked horizontal jerk nystagmus. Pupils are approximately 4 mm, round, light reactive. CRANIAL NERVE V: Corneal sensation is intact to fine touch. CRANIAL NERVE VII: Facial strength is 5/5. CRANIAL NERVE VIII: Auditory acuity is grossly intact bilaterally. CRANIAL NERVE IX: Not tested. CRANIAL NERVE X: Not tested. CRANIAL NERVE XI: Sternocleidomastoid strength is 5/5. CRANIAL NERVE XII: Tongue protrudes in the midline without fasciculations or atrophy. MUSCLE EXAMINATION: Muscle bulk is symmetrically decreased. Tone is normal, slightly decreased. Strength is 5/5. There is no asterixis. REFLEXES: Zero in the upper and lower extremities. COORDINATION: [id number] appears to be intact. IMPRESSION: The patient probably has DRESS syndrome, probably related to Dilantin and/or Keppra. Amlodipine can also cause it as well. We may want to start the patient on steroids even though it is somewhat controversial. I will leave it up to GI to make these decisions. Neurontin is unlikely to cause it although. PLAN: 1. Consider steroid use. 2. 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 3. Continue following this patient. Korey Parada MD DR: BECKY JOB#: [id number] CC: SEJAL
--- NOTE | 2018-05-12 17:21 | Infectious Diseases Prog Note ---
Assessment/Plan Assessment/Plan Assessment: Sepsis; improving- likely due to probable acute acalculous cholecystitis Fever , recurrent- probably due to drug induced hepatitis ?PNA -CXR: Mildly increased interstitial markings. This is nonspecific and cannot exclude a mild bronchitis or interstitial pneumonitis. No focal consolidation. -wound cx craniotomy incision: MSSA (wound doesnt appaer infected) -bcx NTD -influenza sc neg Mild leukocytosis,recurrent; improving Elevated LFTs, improving (probably due to both cholecystitis and toxic phenytoin levels); Elev alk and Leno )ALP >> AST, ALT); worsening- -05/05 SP Liver biopsy: verbal report drug induced. -HIDA scan: Poor hepatic tracer uptake, no biliary excretion. Findings most likely represents severe hepatocellular disease. Findings are nondiagnostic as regards cystic duct or common bile duct patency -MRCP:No definite gallstones. However, there is gallbladder wall edema and pericholecystic fluid. Could indicate acalculous acute cholecystitis or cholecystitis due to an occult calculus. Alternatively, this could represent reactive changes secondary to adjacent hepatocellular inflammation. Consider hepatobiliary nuclear scan if there is high clinical suspicion for acute cholecystitis. Negative for biliary ductal dilatation. Periportal edema. This can be seen acute hepatitis or right heart failure, among other possibilities -Abd US: No acute findings. 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 Please correlate with the surgical history. Some enhancement of the dura along the anterior interhemispheric fissure and within the surgical bed is not unexpected given the recent surgery. However, the possibility of residual neoplasm is not excludable. There are no reference studies to compare to the preoperative MRI available. Other notable postsurgical finding includes a small fluid collection within the surgical bed deep to the bifrontal craniotomy flap and mild edema within the frontal lobes -CT brain wo: Postsurgical changes associated with relatively recent bifrontal craniotomy likely resection of a mass in the area of the interhemispheric fissure. 6 mm thick mixed attenuation extra-axial blood noted within the surgical bed. Please correlate with the operative report and comparison with prior studies is strongly recommended. -ESR 42, CRP 16.2 -HIV ag/ab neg MICHELLE (supratherapuetic vanco levels) Recent Brain tumor removal (1 month ago) seizure disorder GERD Tobacco use Drug rash- likely 2ry to Phenytoin Plan: -Given drug induced liver damage on pathology - will do an antibiotic free period to evaluate if any of these are a potential culprit. -f/u Repeat Bcx x2 -05/09 SP Meropenem #9, Micafungin #2 -3/5 SP IV Vancomycin #7 -3/4 SP Cefepime #6 -Will hold on LP for now as an alternative source of sepsis is considered -Monitor CBC/CMP, temperatures -GI, Sx f/u: ; ?cholecystostomy -?Transfer to [facility]ry center with liver service (ie transplant service)- ALP and Tbili continues to worsened to toxic levels -Nuero fu: holding Phenytoin (toxic levels; also probable drug induced hypersensitize syndrome as had rash, eosinophilia and hepatoxicity) Discussed withRN, case planner, GI Team and Dr Lynch. Subjective Allergies: Coded Allergies: GADOBUTROL (Verified Allergy, Intermediate, 04/30/18) PHENYTOIN (Verified Allergy, Unknown, 05/03/18) Drug hypersensitivity syndrome; hepatotoxicity Uncoded Allergies: CONTRAST (Allergy, Mild, Rash, 05/03/18) questionable if it was due to contrast; patient at the time (Mar-April 2018) also had dilantin reaction (probably rash was due to dilantin) Subjective afebrile >48hrs WBC improving ALP and Tbili continues to worsen, now >2000 and 16, respectively AST and ALT worsening now off abx Objective Vital Signs Last 24 Hour Vital Signs Date Time Temp Pulse Resp B/P (MAP) Pulse Ox O2 Delivery O2 Flow Rate FiO2 05/12/18 16:00 98.6 98 18 117/74 (88) 98 05/12/18 12:00 98.8 97 17 122/70 (87) 97 05/12/18 10:16 100 121/76 05/12/18 09:00 Room Air Room Air 05/12/18 08:00 98.8 100 17 121/76 (91) 98 05/12/18 04:00 99.0 101 17 145/84 (104) 99 05/12/18 00:00 98.6 99 18 139/79 (99) 97 05/11/18 21:08 Room Air Room Air 05/11/18 20:00 99.0 98 18 134/80 (98) 100 Height (Feet): 5 Height (Inches): 11.00 Weight (Pounds): 154 Objective HEAD: craniotomy scar with some superficial ulceration on R left side- no signs of infection GENERAL: Anxious in bed, oriented x2, in no acute distress. CARDIOVASCULAR: No murmur. LUNGS: Distant and clear. ABDOMEN: Bowel sounds positive. Nontender. Nondistended. EXTREMITIES: No cyanosis, clubbing, or edema. NEUROLOGIC: The patient moves all extremities. Slight weakness in extremities. Skin: maculopapular rash in torso, arms Microbiology Date/Time Source Procedure Growth Status 05/09/18 23:55 Blood Blood Culture - Preliminary NO GROWTH AFTER 24 HOURS Resulted 05/09/18 23:40 Blood Blood Culture - Preliminary NO GROWTH AFTER 24 HOURS Resulted Laboratory Tests Test 05/12/18 05:15 05/12/18 11:15 White Blood Count 10.9 K/UL (4.8-10.8) H Red Blood Count 2.96 M/UL (4.70-6.10) L Hemoglobin 9.4 G/DL (14.2-18.0) L Hematocrit 28.4 % (42.0-52.0) L Mean Corpuscular Volume 96 FL (80-99) Mean Corpuscular Hemoglobin 31.9 PG (27.0-31.0) H Mean Corpuscular Hemoglobin Concent 33.2 G/DL (32.0-36.0) Red Cell Distribution Width 13.8 % (11.6-14.8) Platelet Count 714 K/UL (150-450) H Mean Platelet Volume 5.7 FL (6.5-10.1) L Neutrophils (%) (Auto) % (45.0-75.0) Lymphocytes (%) (Auto) % (20.0-45.0) Monocytes (%) (Auto) % (1.0-10.0) Eosinophils (%) (Auto) % (0.0-3.0) Basophils (%) (Auto) % (0.0-2.0) Differential Total Cells Counted 100 Neutrophils % (Manual) 53 % (45-75) Lymphocytes % (Manual) 9 % (20-45) L Monocytes % (Manual) 13 % (1-10) H Eosinophils % (Manual) 24 % (0-3) H Basophils % (Manual) 1 % (0-2) Band Neutrophils 0 % (0-8) Platelet Estimate Increased H Platelet Morphology Normal Macrocytosis 1+ Spherocytes Target Cells 1+ Tear Drop Cells Sodium Level 128 MMOL/L (136-145) L Potassium Level 4.9 MMOL/L (3.5-5.1) Chloride Level 97 MMOL/L (98-107) L Carbon Dioxide Level 25 MMOL/L (21-32) Anion Gap 6 mmol/L (5-15) Blood Urea Nitrogen 15 mg/dL (7-18) Creatinine 1.2 MG/DL (0.55-1.30) Estimat Glomerular Filtration Rate > 60 mL/min (>60) Glucose Level 87 MG/DL (74-106) Calcium Level 8.9 MG/DL (8.5-10.1) Total Bilirubin 16.2 MG/DL (0.2-1.0) H Direct Bilirubin 13.1 MG/DL (0.0-0.3) H Aspartate Amino Transf (AST/SGOT) 174 U/L (15-37) H Alanine Aminotransferase (ALT/SGPT) 116 U/L (12-78) H Alkaline Phosphatase > 2000 U/L (46-116) H Total Protein 5.4 G/DL (6.4-8.2) L Albumin 1.7 G/DL (3.4-5.0) L Stool Occult Blood Pending Current Medications Medications (Trade) Dose Ordered Sig/Obdulia Route PRN Reason Start Time Stop Time Status Last Admin Dose Admin Al Hydroxide/Mg Hydroxide (Mylanta II) 30 ml Q6H PRN ORAL dyspepsia 04/24/18 17:15 05/24/18 17:14 Amlodipine Besylate (Norvasc) 10 mg DAILY ORAL 04/25/18 09:00 05/25/18 08:59 05/12/18 10:16 Cetylpyridinium Chloride (Cepacol) 1 lozg Q2H PRN JORGE LUIS Discomfort from hiccups 05/09/18 15:45 06/08/18 15:44 05/11/18 09:13 Chlorpromazine (Thorazine) 25 mg Q6H PRN ORAL hiccups 05/09/18 21:15 06/08/18 21:14 05/12/18 00:35 Dextrose (Dextrose 50%) 25 ml Q30M PRN IV Hypoglycemia 04/24/18 17:15 05/24/18 17:14 Dextrose (Dextrose 50%) 50 ml Q30M PRN IV Hypoglycemia 04/24/18 17:15 05/24/18 17:14 Diphenhydramine HCl (Benadryl) 25 mg Q6H PRN IVP Itching 04/26/18 16:30 05/26/18 16:29 05/02/18 23:53 Gabapentin (Neurontin) 300 mg ACBREAKFAST ORAL 05/06/18 06:30 06/05/18 06:29 05/12/18 07:06 Gabapentin (Neurontin) 300 mg BEDTIME ORAL 05/05/18 21:00 06/04/18 20:59 05/11/18 20:50 Gabapentin (Neurontin) 600 mg QPM ORAL 05/06/18 16:30 05/25/18 17:59 05/12/18 17:10 Heparin Sodium (Porcine) (Heparin 5000 units/ml) 5,000 units EVERY 12 HOURS SUBQ 04/24/18 21:00 05/24/18 20:59 05/12/18 10:22 Ibuprofen (Advil) 400 mg Q6H PRN ORAL fever (temp>100.5F) 05/09/18 21:45 06/08/18 21:44 05/09/18 21:51 Lactulose (Cephulac) 10 gm THREE TIMES A DAY ORAL 04/29/18 13:30 05/29/18 13:29 05/12/18 17:10 Ondansetron HCl (Zofran) 4 mg Q6H PRN IVP Nausea & Vomiting 04/24/18 17:15 05/24/18 17:14 05/10/18 12:29 Oxycodone HCl (Roxicodone) 5 mg Q4H PRN ORAL severe pain 05/07/18 22:15 05/14/18 22:14 05/11/18 09:28 Polyethylene Glycol (Miralax) 17 gm HSPRN PRN ORAL Constipation 04/24/18 17:15 05/24/18 17:14 Sodium Chloride 1,000 ml @ 100 mls/hr Q10H IV 05/10/18 08:00 06/09/18 07:59 05/12/18 10:17 Kelsie Ibarra M.D. May 12, 2018 17:21
--- NOTE | 2018-05-12 19:30 | NUR ---
NURSE NOTES:RECEIVED PATIENT LYING IN BED, ALERT/ORIENTED TO PERSON/PLACE, REALITY ORIENTATION PROVIDED, DENIES PAIN, NO SIGNS AND SYMPTOMS OF ACUTE CARDIO RESPIRATORY DISTRESS/SHORTNESS OF BREATH, DENIES CHEST PAIN, NO PERIPHERAL EDEMA NOTED. EYES JAUNDICE. SPEECH CLEAR/APPROPRIATE, ABLE TO MAKE NEEDS KNOWN. INCONTINENT OF STOOL, CARE PROVIDED, TOLERATED WELL. SIDE RAILS UP X3/BED IN LOWEST POSITION FOR SAFETY, CALL LIGHT WITHIN REACH. SEIZURE PRECAUTIONS. NAD. CONTINUE WITH CURRENT PLAN OF CARE.
--- NOTE | 2018-05-12 19:54 | NUR ---
HAND-OFF: Report given to BELEN CHAVEZ.
[2018-05-12 20:00] VITALS: BP 124/76
--- NOTE | 2018-05-12 20:39 | Nephrology Progress Note ---
Assessment/Plan Assessment 1. Hypovolemic hyponatremia 2.hyperkalemia 3. History of brain tumor, status post craniotomy. 4. History of seizure. 5.elevated liver enzyme Plan continue ivf monitoring renal function avoid NSAID Mix all ivpb with NS.9 Subjective Subjective more responsive mental status is improving Objective Objective Last 24 Hour Vital Signs Date Time Temp Pulse Resp B/P (MAP) Pulse Ox O2 Delivery O2 Flow Rate FiO2 05/12/18 16:00 98.6 98 18 117/74 (88) 98 05/12/18 12:00 98.8 97 17 122/70 (87) 97 05/12/18 10:16 100 121/76 05/12/18 09:00 Room Air Room Air 05/12/18 08:00 98.8 100 17 121/76 (91) 98 05/12/18 04:00 99.0 101 17 145/84 (104) 99 05/12/18 00:00 98.6 99 18 139/79 (99) 97 05/11/18 21:08 Room Air Room Air Intake and Output 05/11/18 05/12/18 18:59 06:59 Intake Total 1070 ml 1790 ml Output Total 1000 ml 2700 ml Balance 70 ml -910 ml Intake Oral 270 ml 690 ml IV Total 800 ml 1100 ml Output Urine Total 1000 ml 2700 ml Laboratory Tests 05/12/18 05:15: White Blood Count 10.9H, Red Blood Count 2.96L, Hemoglobin 9.4L, Hematocrit 28.4L, Mean Corpuscular Volume 96, Mean Corpuscular Hemoglobin 31.9H, Mean Corpuscular Hemoglobin Concent 33.2, Red Cell Distribution Width 13.8, Platelet Count 714H, Mean Platelet Volume 5.7L, Neutrophils (%) (Auto) , Lymphocytes (%) (Auto) , Monocytes (%) (Auto) , Eosinophils (%) (Auto) , Basophils (%) (Auto) , Differential Total Cells Counted 100, Neutrophils % (Manual) 53, Lymphocytes % ( Manual) 9L, Monocytes % (Manual) 13H, Eosinophils % (Manual) 24H, Basophils % ( Manual) 1, Band Neutrophils 0, Platelet Estimate IncreasedH, Platelet Morphology Normal, Macrocytosis 1+, Spherocytes , Target Cells 1+, Tear Drop Cells , Sodium Level 128L, Potassium Level 4.9, Chloride Level 97L, Carbon Dioxide Level 25, Anion Gap 6, Blood Urea Nitrogen 15, Creatinine 1.2, Estimat Glomerular Filtration Rate > 60, Glucose Level 87, Calcium Level 8.9, Total Bilirubin 16.2H, Direct Bilirubin 13.1H, Aspartate Amino Transf (AST/SGOT) 174H , Alanine Aminotransferase (ALT/SGPT) 116H, Alkaline Phosphatase > 2000H, Total Protein 5.4L, Albumin 1.7L 05/12/18 11:15: Stool Occult Blood [Pending] Height (Feet): 5 Height (Inches): 11.00 Weight (Pounds): 154 Objective HEAD AND NECK: He has scar from the craniotomy. No LAD. Extraocular movement intact. Pupils are reactive to light and accommodation. LUNGS: Clear to auscultation. CARDIAC: Regular rate and rhythm. S1 and S2. No murmur. No rub. ABDOMEN: Soft, nontender, and nondistended. EXTREMITIES: No edema. No clubbing. No cyanosis. Marielena Romero MD May 12, 2018 20:39
[2018-05-13] VITALS: BP 133/81
[2018-05-13 04:00] VITALS: BP 110/78
[2018-05-13] MEDS: chlorproMAZINE 25mg tab ORAL PRN (04:40)
--- NOTE | 2018-05-13 07:35 | General Progress Note ---
Assessment/Plan Problem List: (1) History of craniotomy ICD Codes: Z98.890 - Other specified postprocedural states SNOMED: 43498730, 082912162 (2) Intractable pain ICD Codes: R52 - Pain, unspecified SNOMED: 60642170 (3) HTN (hypertension) ICD Codes: I10 - Essential (primary) hypertension SNOMED: 43255649 (4) Brain tumor ICD Codes: D49.6 - Neoplasm of unspecified behavior of brain SNOMED: 503092111 (5) Elevated alkaline phosphatase level ICD Codes: R74.8 - Abnormal levels of other serum enzymes SNOMED: 545232797 (6) Transaminitis ICD Codes: R74.0 - Nonspecific elevation of levels of transaminase and lactic acid dehydrogenase [LDH] SNOMED: 690082985, 827008628 (7) Anemia ICD Codes: D64.9 - Anemia, unspecified SNOMED: 659296795 Assessment/Plan Head CT reviewed lipase normal abdominal US reviewed, negative Hepatitis panel, negative MRCP reviewed, negative for common bile duct dilation. Possible cholecystitis. 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 MELD score = 28, patient may need tertiary care for liver transplant if LFTs do not improve over the weekend. will order social work to begin looking for center. Stop all hepatotoxic drugs Keppra level ordered Thorazine as needed OB stool r/o GI bleed monitor H&H, prn transfusions bowel regime lactulose + xifaxan Subjective ROS Limited/Unobtainable: Yes Allergies: Coded Allergies: GADOBUTROL (Verified Allergy, Intermediate, 04/30/18) PHENYTOIN (Verified Allergy, Unknown, 05/03/18) Drug hypersensitivity syndrome; hepatotoxicity Uncoded Allergies: CONTRAST (Allergy, Mild, Rash, 05/03/18) questionable if it was due to contrast; patient at the time (Mar-April 2018) also had dilantin reaction (probably rash was due to dilantin) Objective Last 24 Hour Vital Signs Date Time Temp Pulse Resp B/P (MAP) Pulse Ox O2 Delivery O2 Flow Rate FiO2 05/13/18 04:00 96.7 99 20 110/78 (89) 97 05/13/18 00:00 98.3 96 20 133/81 (98) 97 05/12/18 21:00 Room Air Room Air 05/12/18 20:00 98.3 99 18 124/76 (92) 97 05/12/18 16:00 98.6 98 18 117/74 (88) 98 05/12/18 12:00 98.8 97 17 122/70 (87) 97 05/12/18 10:16 100 121/76 05/12/18 09:00 Room Air Room Air 05/12/18 08:00 98.8 100 17 121/76 (91) 98 Intake and Output 05/12/18 05/13/18 19:00 07:00 Intake Total 1680 ml 1400 ml Output Total 800 ml 700 ml Balance 880 ml 700 ml Intake Oral 480 ml 300 ml IV Total 1200 ml 1100 ml Output Urine Total 800 ml 700 ml # Bowel Movements 1 Laboratory Tests 05/12/18 11:15: Stool Occult Blood [Pending] Height (Feet): 5 Height (Inches): 11.00 Weight (Pounds): 154 General Appearance: no apparent distress EENT: normal ENT inspection, scleral icterus Neck: supple Cardiovascular: normal rate Respiratory/Chest: lungs clear Abdomen: normal bowel sounds, non tender, soft Extremities: non-tender Barry Kimball MD May 13, 2018 07:35
[2018-05-13 08:00] VITALS: BP 127/78
--- NOTE | 2018-05-13 08:25 | General Progress Note ---
Assessment/Plan Problem List: (1) Head ache ICD Codes: R51 - Headache SNOMED: 84475042 (2) Weak ICD Codes: R53.1 - Weakness SNOMED: 32392926 (3) HTN (hypertension) ICD Codes: I10 - Essential (primary) hypertension SNOMED: 74017856 (4) Malnutrition ICD Codes: E46 - Unspecified protein-calorie malnutrition SNOMED: 85560696 (5) Epilepsy ICD Codes: G40.909 - Epilepsy, unspecified, not intractable, without status epilepticus SNOMED: 09418086 (6) Intractable pain ICD Codes: R52 - Pain, unspecified SNOMED: 03719498 (7) Phenytoin toxicity ICD Codes: T42.0X1A - Poisoning by hydantoin derivatives, accidental ( unintentional), initial encounter SNOMED: 33095256 Status: unchanged Assessment/Plan pt diet pain control neuro gi psyc eval abx prn cbc bmp am transfer to higher level facility Subjective Constitutional: Reports: weakness Allergies: Coded Allergies: GADOBUTROL (Verified Allergy, Intermediate, 04/30/18) PHENYTOIN (Verified Allergy, Unknown, 05/03/18) Drug hypersensitivity syndrome; hepatotoxicity Uncoded Allergies: CONTRAST (Allergy, Mild, Rash, 05/03/18) questionable if it was due to contrast; patient at the time (Mar-April 2018) also had dilantin reaction (probably rash was due to dilantin) All Systems: reviewed and negative except above Subjective sleepy calm Objective Last 24 Hour Vital Signs Date Time Temp Pulse Resp B/P (MAP) Pulse Ox O2 Delivery O2 Flow Rate FiO2 05/13/18 04:00 96.7 99 20 110/78 (89) 97 05/13/18 00:00 98.3 96 20 133/81 (98) 97 05/12/18 21:00 Room Air Room Air 05/12/18 20:00 98.3 99 18 124/76 (92) 97 05/12/18 16:00 98.6 98 18 117/74 (88) 98 05/12/18 12:00 98.8 97 17 122/70 (87) 97 05/12/18 10:16 100 121/76 05/12/18 09:00 Room Air Room Air Intake and Output 05/12/18 05/13/18 19:00 07:00 Intake Total 1680 ml 1400 ml Output Total 800 ml 700 ml Balance 880 ml 700 ml Intake Oral 480 ml 300 ml IV Total 1200 ml 1100 ml Output Urine Total 800 ml 700 ml # Bowel Movements 1 Laboratory Tests 05/12/18 11:15: Stool Occult Blood [Pending] Height (Feet): 5 Height (Inches): 11.00 Weight (Pounds): 154 General Appearance: lethargic EENT: normal ENT inspection Neck: normal alignment Cardiovascular: normal peripheral pulses, normal rate, regular rhythm Respiratory/Chest: chest wall non-tender, lungs clear, normal breath sounds Abdomen: normal bowel sounds, non tender, soft Extremities: normal inspection Edema: no edema noted Arm (L), no edema noted Arm (R), no edema noted Leg (L), no edema noted Leg (R), no edema noted Pedal (L), no edema noted Pedal (R), no edema noted Generalized Neurologic: motor weakness Skin: normal pigmentation, warm/dry Neri Cat DO May 13, 2018 08:25
--- NOTE | 2018-05-13 08:30 | NUR ---
NURSE NOTES: Patient awake, alert and oriented x3. concern about his hands being dry and tough, relayed to Dr Cat and will address to SIN GARCIA. NO acute resp distress noted. HOB elevated. siderails are up. Call light within reach. Bed in lowest position, Will continue to monitor. Addendum: 05/13/18 at 1550 by LORIN SÁNCHEZ LVN NURSE NOTES: addressed the concerned to Dr. Ibarra and seen the patient. will cont to monitor.
[2018-05-13] MEDS: Heparin 5000 units/ml inj SUBQ SCH ×2 (09:00→21:30)
[2018-05-13] MEDS: Lactulose 10gm/15ml UDC ORAL SCH ×4 (09:10→17:30)
--- NOTE | 2018-05-13 11:38 | Surgery Progress Note ---
Surgery Progress Note Subjective Additional Comments unchanged Objective Last 24 Hour Vital Signs Date Time Temp Pulse Resp B/P (MAP) Pulse Ox O2 Delivery O2 Flow Rate FiO2 05/13/18 09:11 89 127/78 05/13/18 09:00 Room Air Room Air 05/13/18 08:00 98.1 89 18 127/78 (94) 98 05/13/18 04:00 96.7 99 20 110/78 (89) 97 05/13/18 00:00 98.3 96 20 133/81 (98) 97 05/12/18 21:00 Room Air Room Air 05/12/18 20:00 98.3 99 18 124/76 (92) 97 05/12/18 16:00 98.6 98 18 117/74 (88) 98 05/12/18 12:00 98.8 97 17 122/70 (87) 97 I&O Intake and Output 05/12/18 05/13/18 19:00 07:00 Intake Total 1680 ml 1400 ml Output Total 800 ml 700 ml Balance 880 ml 700 ml Intake Oral 480 ml 300 ml IV Total 1200 ml 1100 ml Output Urine Total 800 ml 700 ml # Bowel Movements 1 Drains: none Cardiovascular: RSR Respiratory: clear Abdomen: soft, non-tender, other Extremities: no tenderness, no cyanosis Plan Problems: (1) Transaminitis Assessment & Plan: reviewed chart discussed with GI likely due to drug toxicity. Her biopsy resulted and noted. Likely drug induced toxicity as no infectious or other process noted macro micro changes noted Rx reviewed and seems that most of his hepatotoxic medications have been DC'd. hep panel negative labs worsening Agree with GI labs worsening MELD noted. given no improvement, acute liver toxicity, will need transfer to liver transplant center (2) Elevated alkaline phosphatase level (3) Intractable pain Assessment & Plan: US noted - The liver is unremarkable. The gallbladder is unremarkable. The demonstrated part of the pancreas, aorta and IVC show no abnormalities. Both kidneys appear unremarkable. The spleen is normal in size. There is no biliary ductal dilatation identified. Doppler evaluation of the main portal vein shows patency. There is no ascites. No hydronephrosis seen. CBD is 3 mm. MRI noted - No definite gallstones. However, there is gallbladder wall edema and pericholecystic fluid. Could indicate acalculous acute cholecystitis or cholecystitis due to an occult calculus. Alternatively, this could represent reactive changes secondary to adjacent hepatocellular inflammation. Consider hepatobiliary nuclear scan if there is high clinical suspicion for acute cholecystitis. Negative for biliary ductal dilatation. HIDA noted - Poor hepatic tracer uptake, no biliary excretion. Findings most likely represents severe hepatocellular disease. Findings are nondiagnostic as regards cystic duct or common bile duct patency Liver biopsy with drug induced hepat changes possible acute acalculous cholecystitis. exam difficult given history labs with resolved leukocytosis lft's abnormal from drug toxicity - levels still elevated. trend labs okay for diet will follow clinically (4) Sepsis Jamin Lynch May 13, 2018 11:38
[2018-05-13 12:00] VITALS: BP 115/69
--- NOTE | 2018-05-13 12:04 | Infectious Diseases Prog Note ---
Assessment/Plan Assessment/Plan Assessment: Sepsis; improving- likely due to probable acute acalculous cholecystitis Fever , recurrent- probably due to drug induced hepatitis ?PNA -CXR: Mildly increased interstitial markings. This is nonspecific and cannot exclude a mild bronchitis or interstitial pneumonitis. No focal consolidation. -wound cx craniotomy incision: MSSA (wound doesnt appaer infected) -bcx NTD -influenza sc neg Mild leukocytosis,recurrent; improving Elevated LFTs, improving (probably due to both cholecystitis and toxic phenytoin levels); Elev alk and Leno )ALP >> AST, ALT); worsening- -05/05 SP Liver biopsy: verbal report drug induced. -HIDA scan: Poor hepatic tracer uptake, no biliary excretion. Findings most likely represents severe hepatocellular disease. Findings are nondiagnostic as regards cystic duct or common bile duct patency -MRCP:No definite gallstones. However, there is gallbladder wall edema and pericholecystic fluid. Could indicate acalculous acute cholecystitis or cholecystitis due to an occult calculus. Alternatively, this could represent reactive changes secondary to adjacent hepatocellular inflammation. Consider hepatobiliary nuclear scan if there is high clinical suspicion for acute cholecystitis. Negative for biliary ductal dilatation. Periportal edema. This can be seen acute hepatitis or right heart failure, among other possibilities -Abd US: No acute findings. 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 Please correlate with the surgical history. Some enhancement of the dura along the anterior interhemispheric fissure and within the surgical bed is not unexpected given the recent surgery. However, the possibility of residual neoplasm is not excludable. There are no reference studies to compare to the preoperative MRI available. Other notable postsurgical finding includes a small fluid collection within the surgical bed deep to the bifrontal craniotomy flap and mild edema within the frontal lobes -CT brain wo: Postsurgical changes associated with relatively recent bifrontal craniotomy likely resection of a mass in the area of the interhemispheric fissure. 6 mm thick mixed attenuation extra-axial blood noted within the surgical bed. Please correlate with the operative report and comparison with prior studies is strongly recommended. -ESR 42, CRP 16.2 -HIV ag/ab neg MICHELLE (supratherapuetic vanco levels) Recent Brain tumor removal (1 month ago) seizure disorder GERD Tobacco use Drug rash- likely 2ry to Phenytoin Plan: -Given drug induced liver damage on pathology - will do an antibiotic free period to evaluate if any of these are a potential culprit. -f/u Repeat Bcx x2 -05/09 SP Meropenem #9, Micafungin #2 -3/5 SP IV Vancomycin #7 -3/4 SP Cefepime #6 -Will hold on LP for now as an alternative source of sepsis is considered -Monitor CBC/CMP, temperatures -GI, Sx f/u: ; ?cholecystostomy -?Transfer to [facility]ry center with liver service (ie transplant service)- ALP and Tbili continues to worsened to toxic levels -Nuero fu: holding Phenytoin (toxic levels; also probable drug induced hypersensitize syndrome as had rash, eosinophilia and hepatoxicity) Discussed withRN Subjective Allergies: Coded Allergies: GADOBUTROL (Verified Allergy, Intermediate, 04/30/18) PHENYTOIN (Verified Allergy, Unknown, 05/03/18) Drug hypersensitivity syndrome; hepatotoxicity Uncoded Allergies: CONTRAST (Allergy, Mild, Rash, 05/03/18) questionable if it was due to contrast; patient at the time (Mar-April 2018) also had dilantin reaction (probably rash was due to dilantin) Subjective afebrile >72hrs WBC improving ALP and Tbili continues to worsen, now >2000 and 16, respectively AST and ALT worsening now off abx Objective Vital Signs Last 24 Hour Vital Signs Date Time Temp Pulse Resp B/P (MAP) Pulse Ox O2 Delivery O2 Flow Rate FiO2 05/13/18 09:11 89 127/78 05/13/18 09:00 Room Air Room Air 05/13/18 08:00 98.1 89 18 127/78 (94) 98 05/13/18 04:00 96.7 99 20 110/78 (89) 97 05/13/18 00:00 98.3 96 20 133/81 (98) 97 05/12/18 21:00 Room Air Room Air 05/12/18 20:00 98.3 99 18 124/76 (92) 97 05/12/18 16:00 98.6 98 18 117/74 (88) 98 Height (Feet): 5 Height (Inches): 11.00 Weight (Pounds): 154 Objective HEAD: craniotomy scar with some superficial ulceration on R left side- no signs of infection GENERAL: Anxious in bed, oriented x2, in no acute distress. CARDIOVASCULAR: No murmur. LUNGS: Distant and clear. ABDOMEN: Bowel sounds positive. Nontender. Nondistended. EXTREMITIES: No cyanosis, clubbing, or edema. NEUROLOGIC: The patient moves all extremities. Slight weakness in extremities. Skin: maculopapular rash in torso, arms Current Medications Medications (Trade) Dose Ordered Sig/Obdulia Route PRN Reason Start Time Stop Time Status Last Admin Dose Admin Al Hydroxide/Mg Hydroxide (Mylanta II) 30 ml Q6H PRN ORAL dyspepsia 04/24/18 17:15 05/24/18 17:14 Amlodipine Besylate (Norvasc) 10 mg DAILY ORAL 04/25/18 09:00 05/25/18 08:59 05/13/18 09:11 Cetylpyridinium Chloride (Cepacol) 1 lozg Q2H PRN JORGE LUIS Discomfort from hiccups 05/09/18 15:45 06/08/18 15:44 05/11/18 09:13 Chlorpromazine (Thorazine) 25 mg Q6H PRN ORAL hiccups 05/09/18 21:15 06/08/18 21:14 05/13/18 04:40 Dextrose (Dextrose 50%) 25 ml Q30M PRN IV Hypoglycemia 04/24/18 17:15 05/24/18 17:14 Dextrose (Dextrose 50%) 50 ml Q30M PRN IV Hypoglycemia 04/24/18 17:15 05/24/18 17:14 Diphenhydramine HCl (Benadryl) 25 mg Q6H PRN IVP Itching 04/26/18 16:30 05/26/18 16:29 05/02/18 23:53 Gabapentin (Neurontin) 300 mg ACBREAKFAST ORAL 05/06/18 06:30 06/05/18 06:29 05/13/18 06:46 Gabapentin (Neurontin) 300 mg BEDTIME ORAL 05/05/18 21:00 06/04/18 20:59 05/12/18 20:49 Gabapentin (Neurontin) 600 mg QPM ORAL 05/06/18 16:30 05/25/18 17:59 05/12/18 17:10 Heparin Sodium (Porcine) (Heparin 5000 units/ml) 5,000 units EVERY 12 HOURS SUBQ 04/24/18 21:00 05/24/18 20:59 05/12/18 20:53 Lactulose (Cephulac) 10 gm THREE TIMES A DAY ORAL 04/29/18 13:30 05/29/18 13:29 05/13/18 09:10 Ondansetron HCl (Zofran) 4 mg Q6H PRN IVP Nausea & Vomiting 04/24/18 17:15 05/24/18 17:14 05/10/18 12:29 Oxycodone HCl (Roxicodone) 5 mg Q4H PRN ORAL severe pain 05/07/18 22:15 05/14/18 22:14 05/11/18 09:28 Polyethylene Glycol (Miralax) 17 gm HSPRN PRN ORAL Constipation 04/24/18 17:15 05/24/18 17:14 Kelsie Ibarra M.D. May 13, 2018 12:04
--- NOTE | 2018-05-13 12:21 | Nephrology Progress Note ---
Assessment/Plan Assessment 1. Hypovolemic hyponatremia 2.hyperkalemia 3. History of brain tumor, status post craniotomy. 4. History of seizure. 5.elevated liver enzyme Plan continue ivf monitoring renal function avoid NSAID Mix all ivpb with NS.9 Subjective Subjective having poor appetite mental status is improving Objective Objective Last 24 Hour Vital Signs Date Time Temp Pulse Resp B/P (MAP) Pulse Ox O2 Delivery O2 Flow Rate FiO2 05/13/18 09:11 89 127/78 05/13/18 09:00 Room Air Room Air 05/13/18 08:00 98.1 89 18 127/78 (94) 98 05/13/18 04:00 96.7 99 20 110/78 (89) 97 05/13/18 00:00 98.3 96 20 133/81 (98) 97 05/12/18 21:00 Room Air Room Air 05/12/18 20:00 98.3 99 18 124/76 (92) 97 05/12/18 16:00 98.6 98 18 117/74 (88) 98 Intake and Output 05/12/18 05/13/18 19:00 07:00 Intake Total 1680 ml 1400 ml Output Total 800 ml 700 ml Balance 880 ml 700 ml Intake Oral 480 ml 300 ml IV Total 1200 ml 1100 ml Output Urine Total 800 ml 700 ml # Bowel Movements 1 Height (Feet): 5 Height (Inches): 11.00 Weight (Pounds): 154 Objective HEAD AND NECK: He has scar from the craniotomy. No LAD. Extraocular movement intact. Pupils are reactive to light and accommodation. LUNGS: Clear to auscultation. CARDIAC: Regular rate and rhythm. S1 and S2. No murmur. No rub. ABDOMEN: Soft, nontender, and nondistended. EXTREMITIES: No edema. No clubbing. No cyanosis. Marielena Romero MD May 13, 2018 12:21
--- NOTE | 2018-05-13 14:56 | NUR ---
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 BRAIN TUMOR VS: BP110/51, P 94, T 97.7, RR 18, SpO2 95 IS:HEPARIN SUBQ NORVASC 10mG LACTULOSE 10gm THORAZINE 25mg MED/SURG STATUS
[2018-05-13] MEDS ORDERED: NS 275ml ONE (15:57)
[2018-05-13 16:00] VITALS: BP 138/82
--- NOTE | 2018-05-13 19:25 | NUR ---
HAND-OFF: Report given to
[2018-05-13 20:00] VITALS: BP 119/75
[2018-05-13] MEDS: oxyCODONE 5mg IR tab ORAL PRN (21:38)
[2018-05-14] VITALS: BP 128/72
[2018-05-14 04:05] VITALS: BP 124/76
[2018-05-14 06:47] LABS: HEMATOCRIT 26.7 % (42.0-52.0); HEMOGLOBIN 8.8 G/DL (14.2-18.0); MEAN CORPUSCULAR VOLUME 95 FL (80-99); PLATELET COUNT 783 K/UL (150-450); RED BLOOD COUNT 2.81 M/UL (4.70-6.10); RED CELL DISTRIBUTION WIDTH 13.9 % (11.6-14.8); WHITE BLOOD COUNT 10.9 K/UL (4.8-10.8)
[2018-05-14 07:21] LABS: ALANINE AMINOTRANSFERASE 167 U/L (12-78); ALBUMIN 1.7 G/DL (3.4-5.0); ALBUMIN/GLOBULIN RATIO 0.4 (1.0-2.7); ALKALINE PHOSPHATASE > 2000 U/L (46-116); ANION GAP 7 mmol/L (5-15); ASPARTATE AMINO TRANSFERASE 222 U/L (15-37); BILIRUBIN,TOTAL 16.6 MG/DL (0.2-1.0); BLOOD UREA NITROGEN 14 mg/dL (7-18); CALCIUM 8.9 MG/DL (8.5-10.1); CARBON DIOXIDE 24 MMOL/L (21-32); CHLORIDE 97 MMOL/L (98-107); CREATININE 1.2 MG/DL (0.55-1.30); POTASSIUM 4.8 MMOL/L (3.5-5.1); SODIUM 128 MMOL/L (136-145)
[2018-05-14 07:22] LABS: BILIRUBIN,DIRECT 14.1 MG/DL (0.0-0.3)
[2018-05-14 07:57] VITALS: BP 129/74
[2018-05-14] MEDS: Lactulose 10gm/15ml UDC ORAL SCH ×3 (08:20→17:06)
[2018-05-14] MEDS: Heparin 5000 units/ml inj SUBQ SCH ×3 (08:21→20:35)
--- NOTE | 2018-05-14 08:35 | General Progress Note ---
Assessment/Plan Problem List: (1) Head ache ICD Codes: R51 - Headache SNOMED: 73511268 (2) Weak ICD Codes: R53.1 - Weakness SNOMED: 68086770 (3) HTN (hypertension) ICD Codes: I10 - Essential (primary) hypertension SNOMED: 67555457 (4) Malnutrition ICD Codes: E46 - Unspecified protein-calorie malnutrition SNOMED: 30789921 (5) Epilepsy ICD Codes: G40.909 - Epilepsy, unspecified, not intractable, without status epilepticus SNOMED: 96343491 (6) Intractable pain ICD Codes: R52 - Pain, unspecified SNOMED: 28222487 (7) Phenytoin toxicity ICD Codes: T42.0X1A - Poisoning by hydantoin derivatives, accidental ( unintentional), initial encounter SNOMED: 51348350 Status: unchanged Assessment/Plan pt diet pain control neuro gi psyc eval abx prn cbc bmp am transfer to higher level facility Subjective Allergies: Coded Allergies: GADOBUTROL (Verified Allergy, Intermediate, 04/30/18) PHENYTOIN (Verified Allergy, Unknown, 05/03/18) Drug hypersensitivity syndrome; hepatotoxicity Uncoded Allergies: CONTRAST (Allergy, Mild, Rash, 05/03/18) questionable if it was due to contrast; patient at the time (Mar-April 2018) also had dilantin reaction (probably rash was due to dilantin) All Systems: reviewed and negative except above Subjective sleepy calm Objective Last 24 Hour Vital Signs Date Time Temp Pulse Resp B/P (MAP) Pulse Ox O2 Delivery O2 Flow Rate FiO2 05/14/18 08:20 97 129/74 05/14/18 08:03 Room Air Room Air 05/14/18 07:57 98.0 97 20 129/74 (92) 97 05/14/18 04:05 99.5 97 20 124/76 (92) 97 05/14/18 00:00 98.6 103 20 128/72 (90) 98 05/13/18 21:00 Room Air Room Air 05/13/18 20:00 98.0 104 18 119/75 (90) 97 05/13/18 16:00 98.5 96 20 138/82 (100) 98 05/13/18 12:00 98.1 98 20 115/69 (84) 99 05/13/18 09:11 89 127/78 05/13/18 09:00 Room Air Room Air Intake and Output 05/13/18 05/14/18 19:00 07:00 Output Total 600 ml 2100 ml Balance -600 ml -2100 ml Output Urine Total 600 ml 2100 ml Laboratory Tests 05/14/18 05:35: White Blood Count 10.9H, Red Blood Count 2.81L, Hemoglobin 8.8L, Hematocrit 26.7L, Mean Corpuscular Volume 95, Mean Corpuscular Hemoglobin 31.3H, Mean Corpuscular Hemoglobin Concent 32.9, Red Cell Distribution Width 13.9, Platelet Count 783H, Mean Platelet Volume 5.7L, Neutrophils (%) (Auto) , Lymphocytes (%) (Auto) , Monocytes (%) (Auto) , Eosinophils (%) (Auto) , Basophils (%) (Auto) , Neutrophils % (Manual) [Pending], Lymphocytes % (Manual) [Pending], Platelet Estimate [Pending], Platelet Morphology [Pending], Sodium Level 128L, Potassium Level 4.8, Chloride Level 97L, Carbon Dioxide Level 24, Anion Gap 7, Blood Urea Nitrogen 14, Creatinine 1.2, Estimat Glomerular Filtration Rate > 60, Glucose Level 91, Calcium Level 8.9, Total Bilirubin 16.6H, Direct Bilirubin 14.1H, Aspartate Amino Transf (AST/SGOT) 222H, Alanine Aminotransferase (ALT/SGPT) 167H , Alkaline Phosphatase > 2000H, Total Protein 5.6L, Albumin 1.7L, Globulin 3.9, Albumin/Globulin Ratio 0.4L Height (Feet): 5 Height (Inches): 11.00 Weight (Pounds): 154 General Appearance: lethargic EENT: normal ENT inspection Neck: normal alignment Cardiovascular: normal peripheral pulses, normal rate, regular rhythm Respiratory/Chest: chest wall non-tender, lungs clear, normal breath sounds Abdomen: normal bowel sounds, non tender, soft Extremities: normal inspection Edema: no edema noted Arm (L), no edema noted Arm (R), no edema noted Leg (L), no edema noted Leg (R), no edema noted Pedal (L), no edema noted Pedal (R), no edema noted Generalized Neurologic: responsive, motor weakness Skin: normal pigmentation, warm/dry Neri Cat DO May 14, 2018 08:35
--- NOTE | 2018-05-14 08:52 | NUR ---
NURSE NOTES: pt awake alert, no distress. no c/o pain. call light within reach. will monitor. bed in lowest position, locked. at bedside
--- NOTE | 2018-05-14 10:57 | General Progress Note ---
Assessment/Plan Assessment/Plan (1) Headache (2) Brain neoplasm s/p craniotomy and resection Patient to be continued on Neurontin and Oxycodone. D/w Dr. Delarosa and he concurred. Subjective Date patient seen: May 14, 2018 Time patient seen: 10:30 - am Allergies: Coded Allergies: GADOBUTROL (Verified Allergy, Intermediate, 04/30/18) PHENYTOIN (Verified Allergy, Unknown, 05/03/18) Drug hypersensitivity syndrome; hepatotoxicity Uncoded Allergies: CONTRAST (Allergy, Mild, Rash, 05/03/18) questionable if it was due to contrast; patient at the time (April 2018) also had dilantin reaction (probably rash was due to dilantin) Subjective REVIEW OF SYSTEMS: Denies rash, fever, chills, sweating, dizziness, drowsiness, blurred vision, sore throat, or change in his weight. No shortness of breath, chest pain, palpitations, or cough. No nausea, vomiting, diarrhea, or blood in stool or urine. SUBJECTIVE: Patient is in bed showing no signs of pain tolerating the pain on the oxycodone as needed. Has no new complaints at this time. Objective Last 24 Hour Vital Signs Date Time Temp Pulse Resp B/P (MAP) Pulse Ox O2 Delivery O2 Flow Rate FiO2 05/14/18 08:20 97 129/74 05/14/18 08:03 Room Air Room Air 05/14/18 07:57 98.0 97 20 129/74 (92) 97 05/14/18 04:05 99.5 97 20 124/76 (92) 97 05/14/18 00:00 98.6 103 20 128/72 (90) 98 05/13/18 21:00 Room Air Room Air 05/13/18 20:00 98.0 104 18 119/75 (90) 97 05/13/18 16:00 98.5 96 20 138/82 (100) 98 05/13/18 12:00 98.1 98 20 115/69 (84) 99 Intake and Output 05/13/18 05/14/18 19:00 07:00 Output Total 600 ml 2100 ml Balance -600 ml -2100 ml Output Urine Total 600 ml 2100 ml Laboratory Tests 05/14/18 05:35: White Blood Count 10.9H, Red Blood Count 2.81L, Hemoglobin 8.8L, Hematocrit 26.7L, Mean Corpuscular Volume 95, Mean Corpuscular Hemoglobin 31.3H, Mean Corpuscular Hemoglobin Concent 32.9, Red Cell Distribution Width 13.9, Platelet Count 783H, Mean Platelet Volume 5.7L, Neutrophils (%) (Auto) , Lymphocytes (%) (Auto) , Monocytes (%) (Auto) , Eosinophils (%) (Auto) , Basophils (%) (Auto) , Differential Total Cells Counted 100, Neutrophils % (Manual) 43L, Lymphocytes % (Manual) 12L, Monocytes % (Manual) 14H, Eosinophils % (Manual) 31H, Basophils % (Manual) 0, Band Neutrophils 0, Platelet Estimate IncreasedH, Platelet Morphology Normal, Hypochromasia 1+, Target Cells Occasional, Stomatocytes Occasional, Sodium Level 128L, Potassium Level 4.8, Chloride Level 97L, Carbon Dioxide Level 24, Anion Gap 7, Blood Urea Nitrogen 14, Creatinine 1.2, Estimat Glomerular Filtration Rate > 60, Glucose Level 91, Calcium Level 8.9, Total Bilirubin 16.6H, Direct Bilirubin 14.1H, Aspartate Amino Transf (AST/SGOT) 222H , Alanine Aminotransferase (ALT/SGPT) 167H, Alkaline Phosphatase > 2000H, Total Protein 5.6L, Albumin 1.7L, Globulin 3.9, Albumin/Globulin Ratio 0.4L Height (Feet): 5 Height (Inches): 11.00 Weight (Pounds): 154 Objective GENERAL: Alert, awake, and oriented. LUNGS: Clear bilaterally. HEART: S1 and S2, regular. ABDOMEN: Soft and nontender. EXTREMITIES: No cyanosis. No clubbing. No edema. NEURO: No changes. Albert Hoyos May 14, 2018 10:57
--- NOTE | 2018-05-14 11:10 | NUR ---
NURSE NOTES: relayed Na level to Dr Romero received order for ns @ 100, order entered and carried out. left hand 22 g patent and intact.
[2018-05-14] MEDS: oxyCODONE 5mg IR tab ORAL PRN ×3 (11:24→21:26)
--- NOTE | 2018-05-14 11:50 | General Progress Note ---
Assessment/Plan Problem List: (1) History of craniotomy ICD Codes: Z98.890 - Other specified postprocedural states SNOMED: 39348083, 425915631 (2) Intractable pain ICD Codes: R52 - Pain, unspecified SNOMED: 66000150 (3) HTN (hypertension) ICD Codes: I10 - Essential (primary) hypertension SNOMED: 57103340 (4) Brain tumor ICD Codes: D49.6 - Neoplasm of unspecified behavior of brain SNOMED: 515866564 (5) Elevated alkaline phosphatase level ICD Codes: R74.8 - Abnormal levels of other serum enzymes SNOMED: 786453821 (6) Transaminitis ICD Codes: R74.0 - Nonspecific elevation of levels of transaminase and lactic acid dehydrogenase [LDH] SNOMED: 586001196, 183993974 (7) Anemia ICD Codes: D64.9 - Anemia, unspecified SNOMED: 647846827 Assessment/Plan Head CT reviewed lipase normal abdominal US reviewed, negative Hepatitis panel, negative MRCP reviewed, negative for common bile duct dilation. Possible cholecystitis. 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 MELD score = 28, patient may need tertiary care for liver transplant if LFTs do not improve over the weekend. will order social work to begin looking for center. Stop all hepatotoxic drugs Keppra level ordered Thorazine as needed OB stool r/o GI bleed monitor H&H, prn transfusions bowel regime lactulose + xifaxan LFTS almost leveling off>> cont monitoring Subjective ROS Limited/Unobtainable: Yes Allergies: Coded Allergies: GADOBUTROL (Verified Allergy, Intermediate, 04/30/18) PHENYTOIN (Verified Allergy, Unknown, 05/03/18) Drug hypersensitivity syndrome; hepatotoxicity Uncoded Allergies: CONTRAST (Allergy, Mild, Rash, 05/03/18) questionable if it was due to contrast; patient at the time (Mar-April 2018) also had dilantin reaction (probably rash was due to dilantin) Objective Last 24 Hour Vital Signs Date Time Temp Pulse Resp B/P (MAP) Pulse Ox O2 Delivery O2 Flow Rate FiO2 05/14/18 08:20 97 129/74 05/14/18 08:03 Room Air Room Air 05/14/18 07:57 98.0 97 20 129/74 (92) 97 05/14/18 04:05 99.5 97 20 124/76 (92) 97 05/14/18 00:00 98.6 103 20 128/72 (90) 98 05/13/18 21:00 Room Air Room Air 05/13/18 20:00 98.0 104 18 119/75 (90) 97 05/13/18 16:00 98.5 96 20 138/82 (100) 98 05/13/18 12:00 98.1 98 20 115/69 (84) 99 Intake and Output 05/13/18 05/14/18 19:00 07:00 Output Total 600 ml 2100 ml Balance -600 ml -2100 ml Output Urine Total 600 ml 2100 ml Laboratory Tests 05/14/18 05:35: White Blood Count 10.9H, Red Blood Count 2.81L, Hemoglobin 8.8L, Hematocrit 26.7L, Mean Corpuscular Volume 95, Mean Corpuscular Hemoglobin 31.3H, Mean Corpuscular Hemoglobin Concent 32.9, Red Cell Distribution Width 13.9, Platelet Count 783H, Mean Platelet Volume 5.7L, Neutrophils (%) (Auto) , Lymphocytes (%) (Auto) , Monocytes (%) (Auto) , Eosinophils (%) (Auto) , Basophils (%) (Auto) , Differential Total Cells Counted 100, Neutrophils % (Manual) 43L, Lymphocytes % (Manual) 12L, Monocytes % (Manual) 14H, Eosinophils % (Manual) 31H, Basophils % (Manual) 0, Band Neutrophils 0, Platelet Estimate IncreasedH, Platelet Morphology Normal, Hypochromasia 1+, Target Cells Occasional, Stomatocytes Occasional, Sodium Level 128L, Potassium Level 4.8, Chloride Level 97L, Carbon Dioxide Level 24, Anion Gap 7, Blood Urea Nitrogen 14, Creatinine 1.2, Estimat Glomerular Filtration Rate > 60, Glucose Level 91, Calcium Level 8.9, Total Bilirubin 16.6H, Direct Bilirubin 14.1H, Aspartate Amino Transf (AST/SGOT) 222H , Alanine Aminotransferase (ALT/SGPT) 167H, Alkaline Phosphatase > 2000H, Total Protein 5.6L, Albumin 1.7L, Globulin 3.9, Albumin/Globulin Ratio 0.4L Height (Feet): 5 Height (Inches): 11.00 Weight (Pounds): 154 General Appearance: no apparent distress EENT: normal ENT inspection, scleral icterus Neck: supple Cardiovascular: normal rate Respiratory/Chest: decreased breath sounds Abdomen: normal bowel sounds, non tender, soft Extremities: non-tender Barry Kimball MD May 14, 2018 11:50
[2018-05-14 12:41] VITALS: BP 130/74
[2018-05-14] MEDS ORDERED: oxyCODONE 5mg IR tab ORAL PRN (14:15)
--- NOTE | 2018-05-14 15:08 | NUR ---
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 BRAIN TUMOR VS: BP110/51, P 94, T 97.7, RR 18, SpO2 95 WBC 10.9, RBC 2.81, Na 128, Total Bilirubin 16.6, AST 222, ALT 167, Total Protein 5.6 IS:GABAPENTIN 600mg LACTULOSE 10gm HEPARIN SUBQ MED/SURG STATUS
[2018-05-14 16:00] VITALS: BP 129/78
--- NOTE | 2018-05-14 17:03 | Pulmonology Progress Note ---
Assessment/Plan Problems: (1) Drug-induced hepatic toxicity (2) Phenytoin toxicity (3) Sepsis (4) History of craniotomy (5) Intractable pain (6) Head ache (7) Brain tumor (8) Transaminitis Assessment/Plan symptomatic treatment d/w caregiver at the bed site extensively. We are doing every thing possible to transfer the pt to a higher level of care, preferably to a tertiary hospital. she understands the situation. Subjective ROS Limited/Unobtainable: Yes Allergies: Coded Allergies: GADOBUTROL (Verified Allergy, Intermediate, 04/30/18) PHENYTOIN (Verified Allergy, Unknown, 05/03/18) Drug hypersensitivity syndrome; hepatotoxicity Uncoded Allergies: CONTRAST (Allergy, Mild, Rash, 05/03/18) questionable if it was due to contrast; patient at the time (Mar-April 2018) also had dilantin reaction (probably rash was due to dilantin) Objective Last 24 Hour Vital Signs Date Time Temp Pulse Resp B/P (MAP) Pulse Ox O2 Delivery O2 Flow Rate FiO2 05/14/18 12:41 98.0 97 20 130/74 (92) 97 05/14/18 08:20 97 129/74 05/14/18 08:03 Room Air Room Air 05/14/18 07:57 98.0 97 20 129/74 (92) 97 05/14/18 04:05 99.5 97 20 124/76 (92) 97 05/14/18 00:00 98.6 103 20 128/72 (90) 98 05/13/18 21:00 Room Air Room Air 05/13/18 20:00 98.0 104 18 119/75 (90) 97 Intake and Output 05/13/18 05/14/18 19:00 07:00 Output Total 600 ml 2100 ml Balance -600 ml -2100 ml Output Urine Total 600 ml 2100 ml Objective General Appearance: WD/WN HEENT: normocephalic Respiratory/Chest: chest wall non-tender, lungs clear, normal breath sounds Breasts: no masses Cardiovascular: normal peripheral pulses, normal rate Abdomen: normal bowel sounds, soft, non tender Extremities: no cyanosis Skin: no rash Laboratory Tests 05/14/18 05:35: White Blood Count 10.9H, Red Blood Count 2.81L, Hemoglobin 8.8L, Hematocrit 26.7L, Mean Corpuscular Volume 95, Mean Corpuscular Hemoglobin 31.3H, Mean Corpuscular Hemoglobin Concent 32.9, Red Cell Distribution Width 13.9, Platelet Count 783H, Mean Platelet Volume 5.7L, Neutrophils (%) (Auto) , Lymphocytes (%) (Auto) , Monocytes (%) (Auto) , Eosinophils (%) (Auto) , Basophils (%) (Auto) , Differential Total Cells Counted 100, Neutrophils % (Manual) 43L, Lymphocytes % (Manual) 12L, Monocytes % (Manual) 14H, Eosinophils % (Manual) 31H, Basophils % (Manual) 0, Band Neutrophils 0, Platelet Estimate IncreasedH, Platelet Morphology Normal, Hypochromasia 1+, Target Cells Occasional, Stomatocytes Occasional, Sodium Level 128L, Potassium Level 4.8, Chloride Level 97L, Carbon Dioxide Level 24, Anion Gap 7, Blood Urea Nitrogen 14, Creatinine 1.2, Estimat Glomerular Filtration Rate > 60, Glucose Level 91, Calcium Level 8.9, Total Bilirubin 16.6H, Direct Bilirubin 14.1H, Aspartate Amino Transf (AST/SGOT) 222H , Alanine Aminotransferase (ALT/SGPT) 167H, Alkaline Phosphatase > 2000H, Total Protein 5.6L, Albumin 1.7L, Globulin 3.9, Albumin/Globulin Ratio 0.4L Current Medications Medications (Trade) Dose Ordered Sig/Obdulia Route PRN Reason Start Time Stop Time Status Last Admin Dose Admin Al Hydroxide/Mg Hydroxide (Mylanta II) 30 ml Q6H PRN ORAL dyspepsia 04/24/18 17:15 05/24/18 17:14 Amlodipine Besylate (Norvasc) 10 mg DAILY ORAL 04/25/18 09:00 05/25/18 08:59 05/14/18 08:20 Cetylpyridinium Chloride (Cepacol) 1 lozg Q2H PRN JORGE LUIS Discomfort from hiccups 05/09/18 15:45 06/08/18 15:44 05/11/18 09:13 Chlorpromazine (Thorazine) 25 mg Q6H PRN ORAL hiccups 05/09/18 21:15 06/08/18 21:14 05/13/18 04:40 Dextrose (Dextrose 50%) 25 ml Q30M PRN IV Hypoglycemia 04/24/18 17:15 05/24/18 17:14 Dextrose (Dextrose 50%) 50 ml Q30M PRN IV Hypoglycemia 04/24/18 17:15 05/24/18 17:14 Diphenhydramine HCl (Benadryl) 25 mg Q6H PRN IVP Itching 04/26/18 16:30 05/26/18 16:29 05/02/18 23:53 Gabapentin (Neurontin) 600 mg THREE TIMES A DAY ORAL 05/14/18 18:00 06/13/18 17:59 Heparin Sodium (Porcine) (Heparin 5000 units/ml) 5,000 units EVERY 12 HOURS SUBQ 04/24/18 21:00 05/24/18 20:59 05/13/18 21:30 Lactulose (Cephulac) 10 gm THREE TIMES A DAY ORAL 04/29/18 13:30 05/29/18 13:29 05/14/18 13:10 Ondansetron HCl (Zofran) 4 mg Q6H PRN IVP Nausea & Vomiting 04/24/18 17:15 05/24/18 17:14 05/10/18 12:29 Oxycodone HCl (Roxicodone) 5 mg Q4H PRN ORAL severe pain 05/14/18 11:16 05/21/18 14:14 05/14/18 11:24 Polyethylene Glycol (Miralax) 17 gm HSPRN PRN ORAL Constipation 04/24/18 17:15 05/24/18 17:14 Sodium Chloride 1,000 ml @ 100 mls/hr Q10H IV 05/14/18 10:45 06/13/18 10:44 05/14/18 11:04 Millicent Armas MD May 14, 2018 17:03
--- NOTE | 2018-05-14 19:40 | NUR ---
Received patient in bed, awake. On RA, no SOB, no acute distress, no c/o pain. IV running IVF at 100ml/hr. Bed in lowest position, locked, alarms on. Call light in reach. Family at the bedside.
[2018-05-14 20:00] VITALS: BP 115/74
[2018-05-15] VITALS: BP 127/59
[2018-05-15 04:00] VITALS: BP 110/51
--- NOTE | 2018-05-15 07:15 | NUR ---
HAND-OFF: Report given to BELEN Aleman.
[2018-05-15 07:28] LABS: HEMATOCRIT 25.6 % (42.0-52.0); HEMOGLOBIN 8.6 G/DL (14.2-18.0); MEAN CORPUSCULAR VOLUME 95 FL (80-99); PLATELET COUNT 790 K/UL (150-450); RED BLOOD COUNT 2.68 M/UL (4.70-6.10); RED CELL DISTRIBUTION WIDTH 14.4 % (11.6-14.8); WHITE BLOOD COUNT 10.5 K/UL (4.8-10.8)
--- NOTE | 2018-05-15 07:34 | NUR ---
NURSE NOTES: pt in bed with no sob nor in any form of distress noted. Breathing regular and unlabored. deneis pain at this time. will continue to monitor
[2018-05-15 07:51] LABS: ALANINE AMINOTRANSFERASE 220 U/L (12-78); ALBUMIN 1.8 G/DL (3.4-5.0); ALBUMIN/GLOBULIN RATIO 0.4 (1.0-2.7); ALKALINE PHOSPHATASE > 2000 U/L (46-116); ANION GAP 8 mmol/L (5-15); BILIRUBIN,TOTAL 18.5 MG/DL (0.2-1.0); BLOOD UREA NITROGEN 15 mg/dL (7-18); CARBON DIOXIDE 24 MMOL/L (21-32); CHLORIDE 99 MMOL/L (98-107); CREATININE 1.2 MG/DL (0.55-1.30); POTASSIUM 5.2 MMOL/L (3.5-5.1); SODIUM 131 MMOL/L (136-145)
[2018-05-15 07:59] VITALS: BP 121/92
[2018-05-15] MEDS: oxyCODONE 5mg IR tab ORAL PRN ×3 (08:04→20:59)
[2018-05-15] MEDS: Lactulose 10gm/15ml UDC ORAL SCH ×3 (08:04→17:16)
[2018-05-15 08:09] LABS: ASPARTATE AMINO TRANSFERASE 306 U/L (15-37)
[2018-05-15] MEDS: Heparin 5000 units/ml inj SUBQ SCH ×2 (08:10→20:58)
[2018-05-15 08:14] LABS: BILIRUBIN,DIRECT 11.1 MG/DL (0.0-0.3)
--- NOTE | 2018-05-15 08:47 | General Progress Note ---
Assessment/Plan Assessment/Plan (1) Headache (2) Brain neoplasm s/p craniotomy and resection Patient to be continued on Neurontin and Oxycodone. D/w Dr. Delarosa and he concurred. Subjective Date patient seen: May 15, 2018 Time patient seen: 07:15 - am Allergies: Coded Allergies: GADOBUTROL (Verified Allergy, Intermediate, 04/30/18) PHENYTOIN (Verified Allergy, Unknown, 05/03/18) Drug hypersensitivity syndrome; hepatotoxicity Uncoded Allergies: CONTRAST (Allergy, Mild, Rash, 05/03/18) questionable if it was due to contrast; patient at the time (April 2018) also had dilantin reaction (probably rash was due to dilantin) Subjective REVIEW OF SYSTEMS: Denies rash, fever, chills, sweating, dizziness, drowsiness, blurred vision, sore throat, or change in his weight. No shortness of breath, chest pain, palpitations, or cough. No nausea, vomiting, diarrhea, or blood in stool or urine. SUBJECTIVE: Patient has been tolerating the pain on the Oxycodone. Has no new complaints at this time. Objective Last 24 Hour Vital Signs Date Time Temp Pulse Resp B/P (MAP) Pulse Ox O2 Delivery O2 Flow Rate FiO2 05/15/18 08:04 94 121/92 05/15/18 07:59 98.0 94 19 121/92 (102) 96 05/15/18 04:00 97.7 79 18 110/51 (70) 96 05/15/18 00:00 97.8 85 18 127/59 (81) 97 05/14/18 21:00 Room Air Room Air 05/14/18 20:00 98.6 99 20 115/74 (88) 96 05/14/18 16:00 98.1 95 20 129/78 (95) 97 05/14/18 12:41 98.0 97 20 130/74 (92) 97 Intake and Output 05/14/18 05/15/18 19:00 07:00 Intake Total 900 ml 1400 ml Output Total 2000 ml 750 ml Balance -1100 ml 650 ml Intake Oral 600 ml 500 ml IV Total 300 ml 900 ml Output Urine Total 2000 ml 750 ml Laboratory Tests 05/15/18 05:30: White Blood Count 10.5, Red Blood Count 2.68L, Hemoglobin 8.6L, Hematocrit 25.6L , Mean Corpuscular Volume 95, Mean Corpuscular Hemoglobin 32.2H, Mean Corpuscular Hemoglobin Concent 33.8, Red Cell Distribution Width 14.4, Platelet Count 790H, Mean Platelet Volume 5.7L, Neutrophils (%) (Auto) , Lymphocytes (%) (Auto) , Monocytes (%) (Auto) , Eosinophils (%) (Auto) , Basophils (%) (Auto) , Neutrophils % (Manual) [Pending], Lymphocytes % (Manual) [Pending], Platelet Estimate [Pending], Platelet Morphology [Pending], Sodium Level 131L, Potassium Level 5.2H, Chloride Level 99, Carbon Dioxide Level 24, Anion Gap 8, Blood Urea Nitrogen 15, Creatinine 1.2, Estimat Glomerular Filtration Rate > 60, Glucose Level 80, Calcium Level 9.0, Total Bilirubin 18.5H, Direct Bilirubin 11.1H, Aspartate Amino Transf (AST/SGOT) 306H, Alanine Aminotransferase (ALT/SGPT) 220H , Alkaline Phosphatase > 2000H, Total Protein 5.9L, Albumin 1.8L, Globulin 4.1, Albumin/Globulin Ratio 0.4L Height (Feet): 5 Height (Inches): 11.00 Weight (Pounds): 154 Objective GENERAL: Alert, awake, and oriented. LUNGS: Clear bilaterally. HEART: S1 and S2, regular. ABDOMEN: Soft and nontender. EXTREMITIES: No cyanosis. No clubbing. No edema. NEURO: No changes. Albert Hoyos May 15, 2018 08:47
[2018-05-15] MEDS ORDERED: Levofloxacin 500mg tab ORAL SCH (09:30)
--- NOTE | 2018-05-15 11:31 | GI Progress Note ---
Assessment/Plan Problems: (1) Weak ICD Codes: R53.1 - Weakness SNOMED: 55545554 (2) Malnutrition ICD Codes: E46 - Unspecified protein-calorie malnutrition SNOMED: 21241045 (3) Brain tumor ICD Codes: D49.6 - Neoplasm of unspecified behavior of brain SNOMED: 326286718 (4) Transaminitis ICD Codes: R74.0 - Nonspecific elevation of levels of transaminase and lactic acid dehydrogenase [LDH] SNOMED: 017766176, 468665279 (5) Anemia ICD Codes: D64.9 - Anemia, unspecified SNOMED: 216159113 (6) Intractable pain ICD Codes: R52 - Pain, unspecified SNOMED: 26146216 (7) Phenytoin toxicity ICD Codes: T42.0X1A - Poisoning by hydantoin derivatives, accidental ( unintentional), initial encounter SNOMED: 88400311 (8) Drug-induced hepatic toxicity ICD Codes: K71.6 - Toxic liver disease with hepatitis, not elsewhere classified ; T50.905A - Adverse effect of unspecified drugs, medicaments and biological substances, initial encounter SNOMED: 061173371 Status: not improved, unchanged Status Narrative Discussed with Dr. Kimball. Assessment/Plan Head CT reviewed lipase normal abdominal US reviewed, negative Hepatitis panel, negative MRCP reviewed, negative for common bile duct dilation. Possible cholecystitis. AMA, REHAN and SMA negative OB stool negative Phenytoin toxicity >> DC Dilantin Liver biopsy, verbal report is drug induced hepatitis. MELD score = 28, patient may need tertiary care for liver transplant if LFTs do not improve over the weekend. will order social work to begin looking for center. Stop all hepatotoxic drugs Keppra level ordered Thorazine as needed OB stool r/o GI bleed monitor H&H, prn transfusions bowel regime lactulose + xifaxan LFTS almost leveling off >> cont monitoring The patient was seen and examined at bedside and all new and available data was reviewed in the patients chart. I agree with the above findings, impression and plan. (Patient seen earlier today. Signature stamp does not reflect patient encounter time.). - Barry Kimball MD Subjective Subjective Continues to have headaches nausea vomiting Objective Last 24 Hour Vital Signs Date Time Temp Pulse Resp B/P (MAP) Pulse Ox O2 Delivery O2 Flow Rate FiO2 05/15/18 09:00 Room Air Room Air 05/15/18 08:04 94 121/92 05/15/18 07:59 98.0 94 19 121/92 (102) 96 05/15/18 04:00 97.7 79 18 110/51 (70) 96 05/15/18 00:00 97.8 85 18 127/59 (81) 97 05/14/18 21:00 Room Air Room Air 05/14/18 20:00 98.6 99 20 115/74 (88) 96 05/14/18 16:00 98.1 95 20 129/78 (95) 97 05/14/18 12:41 98.0 97 20 130/74 (92) 97 Intake and Output 05/14/18 05/15/18 19:00 07:00 Intake Total 900 ml 1500 ml Output Total 2000 ml 750 ml Balance -1100 ml 750 ml Intake Oral 600 ml 500 ml IV Total 300 ml 1000 ml Output Urine Total 2000 ml 750 ml Laboratory Tests Test 05/15/18 05:30 White Blood Count 10.5 K/UL (4.8-10.8) Red Blood Count 2.68 M/UL (4.70-6.10) L Hemoglobin 8.6 G/DL (14.2-18.0) L Hematocrit 25.6 % (42.0-52.0) L Mean Corpuscular Volume 95 FL (80-99) Mean Corpuscular Hemoglobin 32.2 PG (27.0-31.0) H Mean Corpuscular Hemoglobin Concent 33.8 G/DL (32.0-36.0) Red Cell Distribution Width 14.4 % (11.6-14.8) Platelet Count 790 K/UL (150-450) H Mean Platelet Volume 5.7 FL (6.5-10.1) L Neutrophils (%) (Auto) % (45.0-75.0) Lymphocytes (%) (Auto) % (20.0-45.0) Monocytes (%) (Auto) % (1.0-10.0) Eosinophils (%) (Auto) % (0.0-3.0) Basophils (%) (Auto) % (0.0-2.0) Differential Total Cells Counted 100 Neutrophils % (Manual) 48 % (45-75) Lymphocytes % (Manual) 17 % (20-45) L Monocytes % (Manual) 11 % (1-10) H Eosinophils % (Manual) 23 % (0-3) H Basophils % (Manual) 1 % (0-2) Band Neutrophils 0 % (0-8) Platelet Estimate Increased H Platelet Morphology Normal Hypochromasia 2+ Anisocytosis 1+ Sodium Level 131 MMOL/L (136-145) L Potassium Level 5.2 MMOL/L (3.5-5.1) H Chloride Level 99 MMOL/L (98-107) Carbon Dioxide Level 24 MMOL/L (21-32) Anion Gap 8 mmol/L (5-15) Blood Urea Nitrogen 15 mg/dL (7-18) Creatinine 1.2 MG/DL (0.55-1.30) Estimat Glomerular Filtration Rate > 60 mL/min (>60) Glucose Level 80 MG/DL (74-106) Calcium Level 9.0 MG/DL (8.5-10.1) Total Bilirubin 18.5 MG/DL (0.2-1.0) H Direct Bilirubin 11.1 MG/DL (0.0-0.3) H Aspartate Amino Transf (AST/SGOT) 306 U/L (15-37) H Alanine Aminotransferase (ALT/SGPT) 220 U/L (12-78) H Alkaline Phosphatase > 2000 U/L (46-116) H Total Protein 5.9 G/DL (6.4-8.2) L Albumin 1.8 G/DL (3.4-5.0) L Globulin 4.1 g/dL Albumin/Globulin Ratio 0.4 (1.0-2.7) L Height (Feet): 5 Height (Inches): 11.00 Weight (Pounds): 154 General Appearance: WD/WN, no apparent distress, alert Cardiovascular: normal rate Respiratory/Chest: normal breath sounds, no respiratory distress Abdominal Exam: normal bowel sounds, non tender, soft Extremities: normal range of motion, non-tender Bhupendra Barriga NP May 15, 2018 11:31
[2018-05-15 12:00] VITALS: BP 120/75
--- NOTE | 2018-05-15 12:23 | Nephrology Progress Note ---
Assessment/Plan Assessment 1. Hypovolemic hyponatremia 2.hyperkalemia ([place] dz?) 3. History of brain tumor, status post craniotomy. 4. History of seizure. 5.elevated liver enzyme Plan continue ivf low k diet monitoring renal function avoid NSAID Mix all ivpb with NS.9 Subjective Subjective mental status is improving Objective Objective Last 24 Hour Vital Signs Date Time Temp Pulse Resp B/P (MAP) Pulse Ox O2 Delivery O2 Flow Rate FiO2 05/15/18 12:00 98.1 91 19 120/75 (90) 95 05/15/18 09:00 Room Air Room Air 05/15/18 08:04 94 121/92 05/15/18 07:59 98.0 94 19 121/92 (102) 96 05/15/18 04:00 97.7 79 18 110/51 (70) 96 05/15/18 00:00 97.8 85 18 127/59 (81) 97 05/14/18 21:00 Room Air Room Air 05/14/18 20:00 98.6 99 20 115/74 (88) 96 05/14/18 16:00 98.1 95 20 129/78 (95) 97 05/14/18 12:41 98.0 97 20 130/74 (92) 97 Intake and Output 05/14/18 05/15/18 19:00 07:00 Intake Total 900 ml 1500 ml Output Total 2000 ml 750 ml Balance -1100 ml 750 ml Intake Oral 600 ml 500 ml IV Total 300 ml 1000 ml Output Urine Total 2000 ml 750 ml Laboratory Tests 05/15/18 05:30: White Blood Count 10.5, Red Blood Count 2.68L, Hemoglobin 8.6L, Hematocrit 25.6L , Mean Corpuscular Volume 95, Mean Corpuscular Hemoglobin 32.2H, Mean Corpuscular Hemoglobin Concent 33.8, Red Cell Distribution Width 14.4, Platelet Count 790H, Mean Platelet Volume 5.7L, Neutrophils (%) (Auto) , Lymphocytes (%) (Auto) , Monocytes (%) (Auto) , Eosinophils (%) (Auto) , Basophils (%) (Auto) , Differential Total Cells Counted 100, Neutrophils % (Manual) 48, Lymphocytes % ( Manual) 17L, Monocytes % (Manual) 11H, Eosinophils % (Manual) 23H, Basophils % ( Manual) 1, Band Neutrophils 0, Platelet Estimate IncreasedH, Platelet Morphology Normal, Hypochromasia 2+, Anisocytosis 1+, Sodium Level 131L, Potassium Level 5.2H, Chloride Level 99, Carbon Dioxide Level 24, Anion Gap 8, Blood Urea Nitrogen 15, Creatinine 1.2, Estimat Glomerular Filtration Rate > 60 , Glucose Level 80, Calcium Level 9.0, Total Bilirubin 18.5H, Direct Bilirubin 11.1H, Aspartate Amino Transf (AST/SGOT) 306H, Alanine Aminotransferase (ALT/ SGPT) 220H, Alkaline Phosphatase > 2000H, Total Protein 5.9L, Albumin 1.8L, Globulin 4.1, Albumin/Globulin Ratio 0.4L Height (Feet): 5 Height (Inches): 11.00 Weight (Pounds): 154 Objective HEAD AND NECK: He has scar from the craniotomy. No LAD. Extraocular movement intact. Pupils are reactive to light and accommodation. LUNGS: Clear to auscultation. CARDIAC: Regular rate and rhythm. S1 and S2. No murmur. No rub. ABDOMEN: Soft, nontender, and nondistended. EXTREMITIES: No edema. No clubbing. No cyanosis. Marielena Romero MD May 15, 2018 12:23
--- NOTE | 2018-05-15 14:33 | General Progress Note ---
Assessment/Plan Problem List: (1) Head ache ICD Codes: R51 - Headache SNOMED: 39751922 (2) Weak ICD Codes: R53.1 - Weakness SNOMED: 19271313 (3) HTN (hypertension) ICD Codes: I10 - Essential (primary) hypertension SNOMED: 72725547 (4) Malnutrition ICD Codes: E46 - Unspecified protein-calorie malnutrition SNOMED: 12485712 (5) Epilepsy ICD Codes: G40.909 - Epilepsy, unspecified, not intractable, without status epilepticus SNOMED: 88398788 (6) Intractable pain ICD Codes: R52 - Pain, unspecified SNOMED: 23976784 (7) Phenytoin toxicity ICD Codes: T42.0X1A - Poisoning by hydantoin derivatives, accidental ( unintentional), initial encounter SNOMED: 30464928 Status: unchanged Assessment/Plan pt diet pain control neuro gi psyc eval abx prn cbc bmp am transfer to higher level facility Subjective Constitutional: Reports: weakness Allergies: Coded Allergies: GADOBUTROL (Verified Allergy, Intermediate, 04/30/18) PHENYTOIN (Verified Allergy, Unknown, 05/03/18) Drug hypersensitivity syndrome; hepatotoxicity Uncoded Allergies: CONTRAST (Allergy, Mild, Rash, 05/03/18) questionable if it was due to contrast; patient at the time (Mar-April 2018) also had dilantin reaction (probably rash was due to dilantin) All Systems: reviewed and negative except above Subjective sleepy calm Objective Last 24 Hour Vital Signs Date Time Temp Pulse Resp B/P (MAP) Pulse Ox O2 Delivery O2 Flow Rate FiO2 05/15/18 12:00 98.1 91 19 120/75 (90) 95 05/15/18 09:00 Room Air Room Air 05/15/18 08:04 94 121/92 05/15/18 07:59 98.0 94 19 121/92 (102) 96 05/15/18 04:00 97.7 79 18 110/51 (70) 96 05/15/18 00:00 97.8 85 18 127/59 (81) 97 05/14/18 21:00 Room Air Room Air 05/14/18 20:00 98.6 99 20 115/74 (88) 96 05/14/18 16:00 98.1 95 20 129/78 (95) 97 Intake and Output 05/14/18 05/15/18 19:00 07:00 Intake Total 900 ml 1500 ml Output Total 2000 ml 750 ml Balance -1100 ml 750 ml Intake Oral 600 ml 500 ml IV Total 300 ml 1000 ml Output Urine Total 2000 ml 750 ml Laboratory Tests 05/15/18 05:30: White Blood Count 10.5, Red Blood Count 2.68L, Hemoglobin 8.6L, Hematocrit 25.6L , Mean Corpuscular Volume 95, Mean Corpuscular Hemoglobin 32.2H, Mean Corpuscular Hemoglobin Concent 33.8, Red Cell Distribution Width 14.4, Platelet Count 790H, Mean Platelet Volume 5.7L, Neutrophils (%) (Auto) , Lymphocytes (%) (Auto) , Monocytes (%) (Auto) , Eosinophils (%) (Auto) , Basophils (%) (Auto) , Differential Total Cells Counted 100, Neutrophils % (Manual) 48, Lymphocytes % ( Manual) 17L, Monocytes % (Manual) 11H, Eosinophils % (Manual) 23H, Basophils % ( Manual) 1, Band Neutrophils 0, Platelet Estimate IncreasedH, Platelet Morphology Normal, Hypochromasia 2+, Anisocytosis 1+, Sodium Level 131L, Potassium Level 5.2H, Chloride Level 99, Carbon Dioxide Level 24, Anion Gap 8, Blood Urea Nitrogen 15, Creatinine 1.2, Estimat Glomerular Filtration Rate > 60 , Glucose Level 80, Calcium Level 9.0, Total Bilirubin 18.5H, Direct Bilirubin 11.1H, Aspartate Amino Transf (AST/SGOT) 306H, Alanine Aminotransferase (ALT/ SGPT) 220H, Alkaline Phosphatase > 2000H, Total Protein 5.9L, Albumin 1.8L, Globulin 4.1, Albumin/Globulin Ratio 0.4L Height (Feet): 5 Height (Inches): 11.00 Weight (Pounds): 154 General Appearance: lethargic EENT: normal ENT inspection Neck: normal alignment Cardiovascular: normal peripheral pulses, normal rate, regular rhythm Respiratory/Chest: chest wall non-tender, lungs clear, normal breath sounds Abdomen: normal bowel sounds, non tender, soft Extremities: normal inspection Edema: no edema noted Arm (L), no edema noted Arm (R), no edema noted Leg (L), no edema noted Leg (R), no edema noted Pedal (L), no edema noted Pedal (R), no edema noted Generalized Neurologic: motor weakness Skin: normal pigmentation, warm/dry Neri Cat DO May 15, 2018 14:33
--- NOTE | 2018-05-15 15:15 | NUR ---
PHARMACIST PER DIEMFIRE ADJUSTER SI:TRANSAMINITIS . BRAIN TUMOR VS: BP127/59, P 79, T 98.0, RR 18, SpO2 96 RBC 2.68, HgB 8.6, Hct 25.6, Na 131, K 5.2, Total Eughrubay43.5, AST 306, ALT 220 IS:LASIX 20mg IV GABAPENTIN 600mg OXYCODONE HCI 5mg NS x1L IV LACTULOSE 10gm AMLODIPINE 10mg HEPARIN SUBQ MED/SURG STATUS
[2018-05-15 16:00] VITALS: BP 119/73
--- NOTE | 2018-05-15 16:03 | Infectious Diseases Prog Note ---
Assessment/Plan Assessment/Plan Assessment: Sepsis; improving- likely due to probable acute acalculous cholecystitis Fever , recurrent- probably due to drug induced hepatitis- now resovled ?PNA -CXR: Mildly increased interstitial markings. This is nonspecific and cannot exclude a mild bronchitis or interstitial pneumonitis. No focal consolidation. -wound cx craniotomy incision: MSSA (wound doesnt appaer infected) -bcx NTD -influenza sc neg Mild leukocytosis,recurrent; resolved Elevated LFTs, improving (probably due to both cholecystitis and toxic phenytoin levels); Elev alk and Leno )ALP >> AST, ALT); worsening- -05/05 SP Liver biopsy: verbal report drug induced. -HIDA scan: Poor hepatic tracer uptake, no biliary excretion. Findings most likely represents severe hepatocellular disease. Findings are nondiagnostic as regards cystic duct or common bile duct patency -MRCP:No definite gallstones. However, there is gallbladder wall edema and pericholecystic fluid. Could indicate acalculous acute cholecystitis or cholecystitis due to an occult calculus. Alternatively, this could represent reactive changes secondary to adjacent hepatocellular inflammation. Consider hepatobiliary nuclear scan if there is high clinical suspicion for acute cholecystitis. Negative for biliary ductal dilatation. Periportal edema. This can be seen acute hepatitis or right heart failure, among other possibilities -Abd US: No acute findings. 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 Please correlate with the surgical history. Some enhancement of the dura along the anterior interhemispheric fissure and within the surgical bed is not unexpected given the recent surgery. However, the possibility of residual neoplasm is not excludable. There are no reference studies to compare to the preoperative MRI available. Other notable postsurgical finding includes a small fluid collection within the surgical bed deep to the bifrontal craniotomy flap and mild edema within the frontal lobes -CT brain wo: Postsurgical changes associated with relatively recent bifrontal craniotomy likely resection of a mass in the area of the interhemispheric fissure. 6 mm thick mixed attenuation extra-axial blood noted within the surgical bed. Please correlate with the operative report and comparison with prior studies is strongly recommended. -ESR 42, CRP 16.2 -HIV ag/ab neg MICHELLE (supratherapuetic vanco levels) Recent Brain tumor removal (1 month ago) seizure disorder GERD Tobacco use Drug rash- likely 2ry to Phenytoin Plan: -Given drug induced liver damage on pathology - will do an antibiotic free period to evaluate if any of these are a potential culprit. -f/u Repeat Bcx x2 -05/09 SP Meropenem #9, Micafungin #2 -3/5 SP IV Vancomycin #7 -3/4 SP Cefepime #6 -Will hold on LP for now as an alternative source of sepsis is considered -Monitor CBC/CMP, temperatures -GI, Sx f/u: ; ?cholecystostomy -?Transfer to y center with liver service (ie transplant service)- ALP and Tbili continues to worsened to toxic levels -Nuero fu: holding Phenytoin (toxic levels; also probable drug induced hypersensitize syndrome as had rash, eosinophilia and hepatoxicity) Discussed withRN Subjective Allergies: Coded Allergies: GADOBUTROL (Verified Allergy, Intermediate, 04/30/18) PHENYTOIN (Verified Allergy, Unknown, 05/03/18) Drug hypersensitivity syndrome; hepatotoxicity Uncoded Allergies: CONTRAST (Allergy, Mild, Rash, 05/03/18) questionable if it was due to contrast; patient at the time (Mar-April 2018) also had dilantin reaction (probably rash was due to dilantin) Subjective afebrile WBC resovled ALP and Tbili continues to worsen, now >2000 and 18, respectively AST and ALT worsening now off abx Objective Vital Signs Last 24 Hour Vital Signs Date Time Temp Pulse Resp B/P (MAP) Pulse Ox O2 Delivery O2 Flow Rate FiO2 05/15/18 12:00 98.1 91 19 120/75 (90) 95 05/15/18 09:00 Room Air Room Air 05/15/18 08:04 94 121/92 05/15/18 07:59 98.0 94 19 121/92 (102) 96 05/15/18 04:00 97.7 79 18 110/51 (70) 96 05/15/18 00:00 97.8 85 18 127/59 (81) 97 05/14/18 21:00 Room Air Room Air 05/14/18 20:00 98.6 99 20 115/74 (88) 96 05/14/18 16:00 98.1 95 20 129/78 (95) 97 Height (Feet): 5 Height (Inches): 11.00 Weight (Pounds): 154 Objective HEAD: craniotomy scar with some superficial ulceration on R left side- no signs of infection GENERAL: Anxious in bed, oriented x2, in no acute distress. CARDIOVASCULAR: No murmur. LUNGS: Distant and clear. ABDOMEN: Bowel sounds positive. Nontender. Nondistended. EXTREMITIES: No cyanosis, clubbing, or edema. NEUROLOGIC: The patient moves all extremities. Slight weakness in extremities. Skin: maculopapular rash in torso, arms Laboratory Tests Test 05/15/18 05:30 White Blood Count 10.5 K/UL (4.8-10.8) Red Blood Count 2.68 M/UL (4.70-6.10) L Hemoglobin 8.6 G/DL (14.2-18.0) L Hematocrit 25.6 % (42.0-52.0) L Mean Corpuscular Volume 95 FL (80-99) Mean Corpuscular Hemoglobin 32.2 PG (27.0-31.0) H Mean Corpuscular Hemoglobin Concent 33.8 G/DL (32.0-36.0) Red Cell Distribution Width 14.4 % (11.6-14.8) Platelet Count 790 K/UL (150-450) H Mean Platelet Volume 5.7 FL (6.5-10.1) L Neutrophils (%) (Auto) % (45.0-75.0) Lymphocytes (%) (Auto) % (20.0-45.0) Monocytes (%) (Auto) % (1.0-10.0) Eosinophils (%) (Auto) % (0.0-3.0) Basophils (%) (Auto) % (0.0-2.0) Differential Total Cells Counted 100 Neutrophils % (Manual) 48 % (45-75) Lymphocytes % (Manual) 17 % (20-45) L Monocytes % (Manual) 11 % (1-10) H Eosinophils % (Manual) 23 % (0-3) H Basophils % (Manual) 1 % (0-2) Band Neutrophils 0 % (0-8) Platelet Estimate Increased H Platelet Morphology Normal Hypochromasia 2+ Anisocytosis 1+ Sodium Level 131 MMOL/L (136-145) L Potassium Level 5.2 MMOL/L (3.5-5.1) H Chloride Level 99 MMOL/L (98-107) Carbon Dioxide Level 24 MMOL/L (21-32) Anion Gap 8 mmol/L (5-15) Blood Urea Nitrogen 15 mg/dL (7-18) Creatinine 1.2 MG/DL (0.55-1.30) Estimat Glomerular Filtration Rate > 60 mL/min (>60) Glucose Level 80 MG/DL (74-106) Calcium Level 9.0 MG/DL (8.5-10.1) Total Bilirubin 18.5 MG/DL (0.2-1.0) H Direct Bilirubin 11.1 MG/DL (0.0-0.3) H Aspartate Amino Transf (AST/SGOT) 306 U/L (15-37) H Alanine Aminotransferase (ALT/SGPT) 220 U/L (12-78) H Alkaline Phosphatase > 2000 U/L (46-116) H Total Protein 5.9 G/DL (6.4-8.2) L Albumin 1.8 G/DL (3.4-5.0) L Globulin 4.1 g/dL Albumin/Globulin Ratio 0.4 (1.0-2.7) L Current Medications Medications (Trade) Dose Ordered Sig/Obdulia Route PRN Reason Start Time Stop Time Status Last Admin Dose Admin Al Hydroxide/Mg Hydroxide (Mylanta II) 30 ml Q6H PRN ORAL dyspepsia 04/24/18 17:15 05/24/18 17:14 Cetylpyridinium Chloride (Cepacol) 1 lozg Q2H PRN JORGE LUIS Discomfort from hiccups 05/09/18 15:45 06/08/18 15:44 05/11/18 09:13 Chlorpromazine (Thorazine) 25 mg Q6H PRN ORAL hiccups 05/09/18 21:15 06/08/18 21:14 05/13/18 04:40 Dextrose (Dextrose 50%) 25 ml Q30M PRN IV Hypoglycemia 04/24/18 17:15 05/24/18 17:14 Dextrose (Dextrose 50%) 50 ml Q30M PRN IV Hypoglycemia 2/25/19 17:15 05/24/18 17:14 Diphenhydramine HCl (Benadryl) 25 mg Q6H PRN IVP Itching 04/26/18 16:30 05/26/18 16:29 05/02/18 23:53 Gabapentin (Neurontin) 600 mg THREE TIMES A DAY ORAL 05/14/18 18:00 06/13/18 17:59 05/15/18 12:20 Heparin Sodium (Porcine) (Heparin 5000 units/ml) 5,000 units EVERY 12 HOURS SUBQ 04/24/18 21:00 05/24/18 20:59 05/15/18 08:10 Lactulose (Cephulac) 10 gm THREE TIMES A DAY ORAL 04/29/18 13:30 05/29/18 13:29 05/15/18 12:20 Ondansetron HCl (Zofran) 4 mg Q6H PRN IVP Nausea & Vomiting 04/24/18 17:15 05/24/18 17:14 05/10/18 12:29 Oxycodone HCl (Roxicodone) 5 mg Q4H PRN ORAL severe pain 05/14/18 11:16 05/21/18 14:14 05/15/18 12:21 Polyethylene Glycol (Miralax) 17 gm HSPRN PRN ORAL Constipation 04/24/18 17:15 05/24/18 17:14 Kelsie Ibarra M.D. May 15, 2018 16:03
--- NOTE | 2018-05-15 16:53 | NUR ---
*-* INSURANCE *-* REVIEWS HAVE BEEN FAXED TO: YENIFER LAUGHLIN PLEASE FAX THE REVIEW/CLINICAL NO ESCROW OFFICER ASSIGNED AT THIS TIME P- [phone] F- [phone]
--- NOTE | 2018-05-15 19:22 | NUR ---
HAND-OFF: Report given to BELEN matthews.
--- NOTE | 2018-05-15 19:47 | NUR ---
NURSE NOTES: Received patient comfortably sleeping,sister at bedside.
[2018-05-15 20:09] VITALS: BP 122/72
[2018-05-16 04:00] VITALS: BP 124/77
[2018-05-16] MEDS: oxyCODONE 5mg IR tab ORAL PRN ×3 (04:39→19:32)
[2018-05-16 06:56] LABS: HEMATOCRIT 26.3 % (42.0-52.0); HEMOGLOBIN 8.6 G/DL (14.2-18.0); MEAN CORPUSCULAR VOLUME 96 FL (80-99); PLATELET COUNT 820 K/UL (150-450); RED BLOOD COUNT 2.75 M/UL (4.70-6.10); RED CELL DISTRIBUTION WIDTH 14.4 % (11.6-14.8); WHITE BLOOD COUNT 10.7 K/UL (4.8-10.8)
--- NOTE | 2018-05-16 07:24 | NUR ---
HAND-OFF: Report given to Oli Pathak RN.
[2018-05-16 07:39] LABS: ALANINE AMINOTRANSFERASE 257 U/L (12-78); ALBUMIN 1.9 G/DL (3.4-5.0); ALBUMIN/GLOBULIN RATIO 0.5 (1.0-2.7); ALKALINE PHOSPHATASE > 2000 U/L (46-116); ANION GAP 8 mmol/L (5-15); ASPARTATE AMINO TRANSFERASE 287 U/L (15-37); BILIRUBIN,TOTAL 18.3 MG/DL (0.2-1.0); BLOOD UREA NITROGEN 15 mg/dL (7-18); CALCIUM 9.3 MG/DL (8.5-10.1); CARBON DIOXIDE 25 MMOL/L (21-32); CHLORIDE 98 MMOL/L (98-107); CREATININE 1.3 MG/DL (0.55-1.30); POTASSIUM 4.3 MMOL/L (3.5-5.1); SODIUM 131 MMOL/L (136-145)
[2018-05-16 07:40] LABS: BILIRUBIN,DIRECT 16.9 MG/DL (0.0-0.3)
--- NOTE | 2018-05-16 07:50 | NUR ---
NURSE NOTES: Received patient on bed, awake. Family member at bedside. No IV access. Bed in low and locked position, call light in reach. Patient denies shortness of breath and pain. Room board updated, will continue to monitor.
[2018-05-16 08:00] VITALS: BP 117/82
--- NOTE | 2018-05-16 08:47 | General Progress Note ---
Assessment/Plan Assessment/Plan (1) Headache (2) Brain neoplasm s/p craniotomy and resection Patient to be continued on Neurontin and Oxycodone. D/w Dr. Delarosa and he concurred. Subjective Date patient seen: May 16, 2018 Time patient seen: 07:15 - am Allergies: Coded Allergies: GADOBUTROL (Verified Allergy, Intermediate, 04/30/18) PHENYTOIN (Verified Allergy, Unknown, 05/03/18) Drug hypersensitivity syndrome; hepatotoxicity Uncoded Allergies: CONTRAST (Allergy, Mild, Rash, 05/03/18) questionable if it was due to contrast; patient at the time (April 2018) also had dilantin reaction (probably rash was due to dilantin) Subjective REVIEW OF SYSTEMS: Denies rash, fever, chills, sweating, dizziness, drowsiness, blurred vision, sore throat, or change in his weight. No shortness of breath, chest pain, palpitations, or cough. No nausea, vomiting, diarrhea, or blood in stool or urine. SUBJECTIVE: Patient is in bed showing no signs of pain or distress. Pain has been tolerated on the Oxycodone. Has no new complaints at this time. Objective Last 24 Hour Vital Signs Date Time Temp Pulse Resp B/P (MAP) Pulse Ox O2 Delivery O2 Flow Rate FiO2 05/16/18 08:00 98.0 100 18 117/82 (94) 99 05/16/18 04:00 96.8 95 18 124/77 (93) 94 05/15/18 20:36 Room Air Room Air 05/15/18 20:09 98.6 95 18 122/72 (89) 97 05/15/18 16:00 98.4 94 19 119/73 (88) 95 05/15/18 12:00 98.1 91 19 120/75 (90) 95 05/15/18 09:00 Room Air Room Air Intake and Output 05/15/18 05/16/18 18:59 06:59 Intake Total 1080 ml 300 ml Output Total 350 ml 1200 ml Balance 730 ml -900 ml Intake Oral 480 ml 300 ml IV Total 600 ml Output Urine Total 350 ml 1200 ml # Voids 3 Laboratory Tests 05/16/18 05:25: White Blood Count 10.7, Red Blood Count 2.75L, Hemoglobin 8.6L, Hematocrit 26.3L , Mean Corpuscular Volume 96, Mean Corpuscular Hemoglobin 31.3H, Mean Corpuscular Hemoglobin Concent 32.7, Red Cell Distribution Width 14.4, Platelet Count 820H, Mean Platelet Volume 5.7L, Neutrophils (%) (Auto) , Lymphocytes (%) (Auto) , Monocytes (%) (Auto) , Eosinophils (%) (Auto) , Basophils (%) (Auto) , Neutrophils % (Manual) [Pending], Lymphocytes % (Manual) [Pending], Platelet Estimate [Pending], Platelet Morphology [Pending], Sodium Level 131L, Potassium Level 4.3, Chloride Level 98, Carbon Dioxide Level 25, Anion Gap 8, Blood Urea Nitrogen 15, Creatinine 1.3, Estimat Glomerular Filtration Rate > 60, Glucose Level 87, Calcium Level 9.3, Total Bilirubin 18.3H, Direct Bilirubin 16.9H, Aspartate Amino Transf (AST/SGOT) 287H, Alanine Aminotransferase (ALT/SGPT) 257H , Alkaline Phosphatase > 2000H, Total Protein 6.0L, Albumin 1.9L, Globulin 4.1, Albumin/Globulin Ratio 0.5L Height (Feet): 5 Height (Inches): 11.00 Weight (Pounds): 154 Objective GENERAL: Alert, awake, and oriented. LUNGS: Clear bilaterally. HEART: S1 and S2, regular. ABDOMEN: Soft and nontender. EXTREMITIES: No cyanosis. No clubbing. No edema. NEURO: No changes. Albert Hoyos May 16, 2018 08:47
[2018-05-16] MEDS: Lactulose 10gm/15ml UDC ORAL SCH ×3 (09:11→17:24)
[2018-05-16] MEDS: Heparin 5000 units/ml inj SUBQ SCH ×2 (09:12→20:22)
--- NOTE | 2018-05-16 11:31 | GI Progress Note ---
Assessment/Plan Problems: (1) Weak ICD Codes: R53.1 - Weakness SNOMED: 61441430 (2) Malnutrition ICD Codes: E46 - Unspecified protein-calorie malnutrition SNOMED: 13075186 (3) Brain tumor ICD Codes: D49.6 - Neoplasm of unspecified behavior of brain SNOMED: 702444982 (4) Transaminitis ICD Codes: R74.0 - Nonspecific elevation of levels of transaminase and lactic acid dehydrogenase [LDH] SNOMED: 726251315, 738849019 (5) Anemia ICD Codes: D64.9 - Anemia, unspecified SNOMED: 533890990 (6) Intractable pain ICD Codes: R52 - Pain, unspecified SNOMED: 46737780 (7) Phenytoin toxicity ICD Codes: T42.0X1A - Poisoning by hydantoin derivatives, accidental ( unintentional), initial encounter SNOMED: 45094160 (8) Drug-induced hepatic toxicity ICD Codes: K71.6 - Toxic liver disease with hepatitis, not elsewhere classified ; T50.905A - Adverse effect of unspecified drugs, medicaments and biological substances, initial encounter SNOMED: 776711736 Status: unchanged Status Narrative Discussed with Dr. Kimball Assessment/Plan Head CT reviewed lipase normal abdominal US reviewed, negative Hepatitis panel, negative MRCP reviewed, negative for common bile duct dilation. Possible cholecystitis. AMA, REHAN and SMA negative OB stool negative Keppra level normal Phenytoin toxicity >> DC Dilantin Liver biopsy, verbal report is drug induced hepatitis. MELD score = 28, patient may need tertiary care for liver transplant. will order social work to begin looking for center. Stop all hepatotoxic drugs LFTS almost leveling off >> cont monitoring Thorazine as needed monitor H&H, prn transfusions bowel regime lactulose + xifaxan follow labs The patient was seen and examined at bedside and all new and available data was reviewed in the patients chart. I agree with the above findings, impression and plan. (Patient seen earlier today. Signature stamp does not reflect patient encounter time.). - Barry Kimball MD Subjective Subjective Continues to have headaches nausea vomiting Ambulating Took shower today Objective Last 24 Hour Vital Signs Date Time Temp Pulse Resp B/P (MAP) Pulse Ox O2 Delivery O2 Flow Rate FiO2 05/16/18 09:00 Room Air Room Air 05/16/18 08:00 98.0 100 18 117/82 (94) 99 05/16/18 04:00 96.8 95 18 124/77 (93) 94 05/15/18 20:36 Room Air Room Air 05/15/18 20:09 98.6 95 18 122/72 (89) 97 05/15/18 16:00 98.4 94 19 119/73 (88) 95 05/15/18 12:00 98.1 91 19 120/75 (90) 95 Intake and Output 05/15/18 05/16/18 19:00 07:00 Intake Total 980 ml 300 ml Output Total 350 ml 1200 ml Balance 630 ml -900 ml Intake Oral 480 ml 300 ml IV Total 500 ml Output Urine Total 350 ml 1200 ml # Voids 3 Laboratory Tests Test 05/16/18 05:25 White Blood Count 10.7 K/UL (4.8-10.8) Red Blood Count 2.75 M/UL (4.70-6.10) L Hemoglobin 8.6 G/DL (14.2-18.0) L Hematocrit 26.3 % (42.0-52.0) L Mean Corpuscular Volume 96 FL (80-99) Mean Corpuscular Hemoglobin 31.3 PG (27.0-31.0) H Mean Corpuscular Hemoglobin Concent 32.7 G/DL (32.0-36.0) Red Cell Distribution Width 14.4 % (11.6-14.8) Platelet Count 820 K/UL (150-450) H Mean Platelet Volume 5.7 FL (6.5-10.1) L Neutrophils (%) (Auto) % (45.0-75.0) Lymphocytes (%) (Auto) % (20.0-45.0) Monocytes (%) (Auto) % (1.0-10.0) Eosinophils (%) (Auto) % (0.0-3.0) Basophils (%) (Auto) % (0.0-2.0) Neutrophils % (Manual) Pending Lymphocytes % (Manual) Pending Platelet Estimate Pending Platelet Morphology Pending Sodium Level 131 MMOL/L (136-145) L Potassium Level 4.3 MMOL/L (3.5-5.1) Chloride Level 98 MMOL/L (98-107) Carbon Dioxide Level 25 MMOL/L (21-32) Anion Gap 8 mmol/L (5-15) Blood Urea Nitrogen 15 mg/dL (7-18) Creatinine 1.3 MG/DL (0.55-1.30) Estimat Glomerular Filtration Rate > 60 mL/min (>60) Glucose Level 87 MG/DL (74-106) Calcium Level 9.3 MG/DL (8.5-10.1) Total Bilirubin 18.3 MG/DL (0.2-1.0) H Direct Bilirubin 16.9 MG/DL (0.0-0.3) H Aspartate Amino Transf (AST/SGOT) 287 U/L (15-37) H Alanine Aminotransferase (ALT/SGPT) 257 U/L (12-78) H Alkaline Phosphatase > 2000 U/L (46-116) H Total Protein 6.0 G/DL (6.4-8.2) L Albumin 1.9 G/DL (3.4-5.0) L Globulin 4.1 g/dL Albumin/Globulin Ratio 0.5 (1.0-2.7) L Height (Feet): 5 Height (Inches): 11.00 Weight (Pounds): 154 General Appearance: WD/WN, no apparent distress, alert Cardiovascular: normal rate Respiratory/Chest: normal breath sounds, no respiratory distress Abdominal Exam: normal bowel sounds, non tender, soft Extremities: normal range of motion, non-tender Bhupendra Barriga NP May 16, 2018 11:31
--- NOTE | 2018-05-16 11:37 | NUR ---
SILVER PLATERTALENT ADVISOR SI: TRANSAMINITIS . BRAIN TUMOR VS: BP 117/82, P 100, T 96.8, RR 18, SpO2 94 RBC 2.75, Hgb 8.6, Hct 26.3, Na 131, Total Bilirubin 18.3, AST 287, ALT 257 IS: GABAPENTIN 600mg OXYCODONE HCI 5mg LACTULOSE 10gm HEPARIN SUBQ MED/SURG STATUS
[2018-05-16 12:00] VITALS: BP 117/76
--- NOTE | 2018-05-16 12:07 | Surgery Progress Note ---
Surgery Progress Note Subjective Additional Comments family at bedside. comfortable. labs noted and worsening. exam with jaundice. Objective Last 24 Hour Vital Signs Date Time Temp Pulse Resp B/P (MAP) Pulse Ox O2 Delivery O2 Flow Rate FiO2 05/16/18 09:00 Room Air Room Air 05/16/18 08:00 98.0 100 18 117/82 (94) 99 05/16/18 04:00 96.8 95 18 124/77 (93) 94 05/15/18 20:36 Room Air Room Air 05/15/18 20:09 98.6 95 18 122/72 (89) 97 05/15/18 16:00 98.4 94 19 119/73 (88) 95 I&O Intake and Output 05/15/18 05/16/18 19:00 07:00 Intake Total 980 ml 300 ml Output Total 350 ml 1200 ml Balance 630 ml -900 ml Intake Oral 480 ml 300 ml IV Total 500 ml Output Urine Total 350 ml 1200 ml # Voids 3 Cardiovascular: RSR Respiratory: decreased breath sounds Abdomen: soft, non-tender, present bowel sounds Extremities: no tenderness, no cyanosis Laboratory Tests Test 05/16/18 05:25 White Blood Count 10.7 K/UL (4.8-10.8) Red Blood Count 2.75 M/UL (4.70-6.10) L Hemoglobin 8.6 G/DL (14.2-18.0) L Hematocrit 26.3 % (42.0-52.0) L Mean Corpuscular Volume 96 FL (80-99) Mean Corpuscular Hemoglobin 31.3 PG (27.0-31.0) H Mean Corpuscular Hemoglobin Concent 32.7 G/DL (32.0-36.0) Red Cell Distribution Width 14.4 % (11.6-14.8) Platelet Count 820 K/UL (150-450) H Mean Platelet Volume 5.7 FL (6.5-10.1) L Neutrophils (%) (Auto) % (45.0-75.0) Lymphocytes (%) (Auto) % (20.0-45.0) Monocytes (%) (Auto) % (1.0-10.0) Eosinophils (%) (Auto) % (0.0-3.0) Basophils (%) (Auto) % (0.0-2.0) Differential Total Cells Counted 100 Neutrophils % (Manual) 44 % (45-75) L Lymphocytes % (Manual) 16 % (20-45) L Monocytes % (Manual) 10 % (1-10) Eosinophils % (Manual) 30 % (0-3) H Basophils % (Manual) 0 % (0-2) Band Neutrophils 0 % (0-8) Platelet Estimate Increased H Platelet Morphology Normal Hypochromasia 1+ Anisocytosis 1+ Target Cells Occasional Stomatocytes Occasional Sodium Level 131 MMOL/L (136-145) L Potassium Level 4.3 MMOL/L (3.5-5.1) Chloride Level 98 MMOL/L (98-107) Carbon Dioxide Level 25 MMOL/L (21-32) Anion Gap 8 mmol/L (5-15) Blood Urea Nitrogen 15 mg/dL (7-18) Creatinine 1.3 MG/DL (0.55-1.30) Estimat Glomerular Filtration Rate > 60 mL/min (>60) Glucose Level 87 MG/DL (74-106) Calcium Level 9.3 MG/DL (8.5-10.1) Total Bilirubin 18.3 MG/DL (0.2-1.0) H Direct Bilirubin 16.9 MG/DL (0.0-0.3) H Aspartate Amino Transf (AST/SGOT) 287 U/L (15-37) H Alanine Aminotransferase (ALT/SGPT) 257 U/L (12-78) H Alkaline Phosphatase > 2000 U/L (46-116) H Total Protein 6.0 G/DL (6.4-8.2) L Albumin 1.9 G/DL (3.4-5.0) L Globulin 4.1 g/dL Albumin/Globulin Ratio 0.5 (1.0-2.7) L Plan Problems: (1) Transaminitis Assessment & Plan: reviewed chart discussed with GI likely due to drug toxicity. Her biopsy resulted and noted. Likely drug induced toxicity as no infectious or other process noted macro micro changes noted Rx reviewed and seems that most of his hepatotoxic medications have been DC'd. hep panel negative labs worsening Agree with GI labs worsening MELD noted. given no improvement, acute liver toxicity, will need transfer to liver transplant center - team working on transfer but no center provided yet (2) Elevated alkaline phosphatase level (3) Intractable pain Assessment & Plan: US noted - The liver is unremarkable. The gallbladder is unremarkable. The demonstrated part of the pancreas, aorta and IVC show no abnormalities. Both kidneys appear unremarkable. The spleen is normal in size. There is no biliary ductal dilatation identified. Doppler evaluation of the main portal vein shows patency. There is no ascites. No hydronephrosis seen. CBD is 3 mm. MRI noted - No definite gallstones. However, there is gallbladder wall edema and pericholecystic fluid. Could indicate acalculous acute cholecystitis or cholecystitis due to an occult calculus. Alternatively, this could represent reactive changes secondary to adjacent hepatocellular inflammation. Consider hepatobiliary nuclear scan if there is high clinical suspicion for acute cholecystitis. Negative for biliary ductal dilatation. HIDA noted - Poor hepatic tracer uptake, no biliary excretion. Findings most likely represents severe hepatocellular disease. Findings are nondiagnostic as regards cystic duct or common bile duct patency Liver biopsy with drug induced hepat changes possible acute acalculous cholecystitis. exam difficult given history labs with resolved leukocytosis lft's abnormal from drug toxicity - levels still elevated. trend labs okay for diet will follow clinically (4) Sepsis Jamin Lynch May 16, 2018 12:07
--- NOTE | 2018-05-16 12:36 | Infectious Diseases Prog Note ---
Assessment/Plan Assessment/Plan Assessment: Sepsis; improving- likely due to probable acute acalculous cholecystitis Fever , recurrent- probably due to drug induced hepatitis- now resovled ?PNA -CXR: Mildly increased interstitial markings. This is nonspecific and cannot exclude a mild bronchitis or interstitial pneumonitis. No focal consolidation. -wound cx craniotomy incision: MSSA (wound doesnt appaer infected) -bcx Neg -influenza sc neg Mild leukocytosis,recurrent; resolved Elevated LFTs, improving (probably due to both cholecystitis and toxic phenytoin levels); Elev alk and Leno )ALP >> AST, ALT); worsening- -05/05 SP Liver biopsy: verbal report drug induced. -HIDA scan: Poor hepatic tracer uptake, no biliary excretion. Findings most likely represents severe hepatocellular disease. Findings are nondiagnostic as regards cystic duct or common bile duct patency -MRCP:No definite gallstones. However, there is gallbladder wall edema and pericholecystic fluid. Could indicate acalculous acute cholecystitis or cholecystitis due to an occult calculus. Alternatively, this could represent reactive changes secondary to adjacent hepatocellular inflammation. Consider hepatobiliary nuclear scan if there is high clinical suspicion for acute cholecystitis. Negative for biliary ductal dilatation. Periportal edema. This can be seen acute hepatitis or right heart failure, among other possibilities -Abd US: No acute findings. 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 Please correlate with the surgical history. Some enhancement of the dura along the anterior interhemispheric fissure and within the surgical bed is not unexpected given the recent surgery. However, the possibility of residual neoplasm is not excludable. There are no reference studies to compare to the preoperative MRI available. Other notable postsurgical finding includes a small fluid collection within the surgical bed deep to the bifrontal craniotomy flap and mild edema within the frontal lobes -CT brain wo: Postsurgical changes associated with relatively recent bifrontal craniotomy likely resection of a mass in the area of the interhemispheric fissure. 6 mm thick mixed attenuation extra-axial blood noted within the surgical bed. Please correlate with the operative report and comparison with prior studies is strongly recommended. -ESR 42, CRP 16.2 -HIV ag/ab neg MICHELLE (supratherapuetic vanco levels) Recent Brain tumor removal (1 month ago) seizure disorder GERD Tobacco use Drug rash- likely 2ry to Phenytoin Plan: -Given drug induced liver damage on pathology - will do an antibiotic free period to evaluate if any of these are a potential culprit. -05/09 SP Meropenem #9, Micafungin #2 -/ SP IV Vancomycin #7 -/4 SP Cefepime #6 -Will hold on LP for now as an alternative source of sepsis is considered -Monitor CBC/CMP, temperatures -GI, Sx f/u: ; ?cholecystostomy -?Transfer to [address] [place] [address] with liver service (ie transplant service)- ALP and Tbili continues to worsened to toxic levels -Nuero fu: holding Phenytoin (toxic levels; also probable drug induced hypersensitize syndrome as had rash, eosinophilia and hepatoxicity) Discussed withRN Subjective Allergies: Coded Allergies: GADOBUTROL (Verified Allergy, Intermediate, 04/30/18) PHENYTOIN (Verified Allergy, Unknown, 05/03/18) Drug hypersensitivity syndrome; hepatotoxicity Uncoded Allergies: CONTRAST (Allergy, Mild, Rash, 05/03/18) questionable if it was due to contrast; patient at the time (Mar-April 2018) also had dilantin reaction (probably rash was due to dilantin) Subjective afebrile no leukocytosis ALP and Tbili continues to worsen, now >2000 and 18, respectively AST and ALT worsening off abx awaiting transfer to [address] [place] [address] Objective Vital Signs Last 24 Hour Vital Signs Date Time Temp Pulse Resp B/P (MAP) Pulse Ox O2 Delivery O2 Flow Rate FiO2 05/16/18 09:00 Room Air Room Air 05/16/18 08:00 98.0 100 18 117/82 (94) 99 05/16/18 04:00 96.8 95 18 124/77 (93) 94 05/15/18 20:36 Room Air Room Air 05/15/18 20:09 98.6 95 18 122/72 (89) 97 05/15/18 16:00 98.4 94 19 119/73 (88) 95 Height (Feet): 5 Height (Inches): 11.00 Weight (Pounds): 154 Objective HEAD: craniotomy scar with some superficial ulceration on R left side- no signs of infection GENERAL: Anxious in bed, oriented x2, in no acute distress. CARDIOVASCULAR: No murmur. LUNGS: Distant and clear. ABDOMEN: Bowel sounds positive. Nontender. Nondistended. EXTREMITIES: No cyanosis, clubbing, or edema. NEUROLOGIC: The patient moves all extremities. Slight weakness in extremities. Skin: maculopapular rash in torso, arms Laboratory Tests Test 05/16/18 05:25 White Blood Count 10.7 K/UL (4.8-10.8) Red Blood Count 2.75 M/UL (4.70-6.10) L Hemoglobin 8.6 G/DL (14.2-18.0) L Hematocrit 26.3 % (42.0-52.0) L Mean Corpuscular Volume 96 FL (80-99) Mean Corpuscular Hemoglobin 31.3 PG (27.0-31.0) H Mean Corpuscular Hemoglobin Concent 32.7 G/DL (32.0-36.0) Red Cell Distribution Width 14.4 % (11.6-14.8) Platelet Count 820 K/UL (150-450) H Mean Platelet Volume 5.7 FL (6.5-10.1) L Neutrophils (%) (Auto) % (45.0-75.0) Lymphocytes (%) (Auto) % (20.0-45.0) Monocytes (%) (Auto) % (1.0-10.0) Eosinophils (%) (Auto) % (0.0-3.0) Basophils (%) (Auto) % (0.0-2.0) Differential Total Cells Counted 100 Neutrophils % (Manual) 44 % (45-75) L Lymphocytes % (Manual) 16 % (20-45) L Monocytes % (Manual) 10 % (1-10) Eosinophils % (Manual) 30 % (0-3) H Basophils % (Manual) 0 % (0-2) Band Neutrophils 0 % (0-8) Platelet Estimate Increased H Platelet Morphology Normal Hypochromasia 1+ Anisocytosis 1+ Target Cells Occasional Stomatocytes Occasional Sodium Level 131 MMOL/L (136-145) L Potassium Level 4.3 MMOL/L (3.5-5.1) Chloride Level 98 MMOL/L (98-107) Carbon Dioxide Level 25 MMOL/L (21-32) Anion Gap 8 mmol/L (5-15) Blood Urea Nitrogen 15 mg/dL (7-18) Creatinine 1.3 MG/DL (0.55-1.30) Estimat Glomerular Filtration Rate > 60 mL/min (>60) Glucose Level 87 MG/DL (74-106) Calcium Level 9.3 MG/DL (8.5-10.1) Total Bilirubin 18.3 MG/DL (0.2-1.0) H Direct Bilirubin 16.9 MG/DL (0.0-0.3) H Aspartate Amino Transf (AST/SGOT) 287 U/L (15-37) H Alanine Aminotransferase (ALT/SGPT) 257 U/L (12-78) H Alkaline Phosphatase > 2000 U/L (46-116) H Total Protein 6.0 G/DL (6.4-8.2) L Albumin 1.9 G/DL (3.4-5.0) L Globulin 4.1 g/dL Albumin/Globulin Ratio 0.5 (1.0-2.7) L Current Medications Medications (Trade) Dose Ordered Sig/Obdulia Route PRN Reason Start Time Stop Time Status Last Admin Dose Admin Al Hydroxide/Mg Hydroxide (Mylanta II) 30 ml Q6H PRN ORAL dyspepsia 04/24/18 17:15 05/24/18 17:14 Cetylpyridinium Chloride (Cepacol) 1 lozg Q2H PRN JORGE LUIS Discomfort from hiccups 05/09/18 15:45 06/08/18 15:44 05/11/18 09:13 Chlorpromazine (Thorazine) 25 mg Q6H PRN ORAL hiccups 05/09/18 21:15 06/08/18 21:14 05/13/18 04:40 Dextrose (Dextrose 50%) 25 ml Q30M PRN IV Hypoglycemia 04/24/18 17:15 05/24/18 17:14 Dextrose (Dextrose 50%) 50 ml Q30M PRN IV Hypoglycemia 04/24/18 17:15 05/24/18 17:14 Diphenhydramine HCl (Benadryl) 25 mg Q6H PRN IVP Itching 04/26/18 16:30 05/26/18 16:29 05/02/18 23:53 Gabapentin (Neurontin) 600 mg THREE TIMES A DAY ORAL 05/14/18 18:00 06/13/18 17:59 05/16/18 09:11 Heparin Sodium (Porcine) (Heparin 5000 units/ml) 5,000 units EVERY 12 HOURS SUBQ 04/24/18 21:00 05/24/18 20:59 05/16/18 09:12 Lactulose (Cephulac) 10 gm THREE TIMES A DAY ORAL 04/29/18 13:30 05/29/18 13:29 05/16/18 09:11 Ondansetron HCl (Zofran) 4 mg Q6H PRN IVP Nausea & Vomiting 04/24/18 17:15 05/24/18 17:14 05/10/18 12:29 Oxycodone HCl (Roxicodone) 5 mg Q4H PRN ORAL severe pain 05/14/18 11:16 05/21/18 14:14 05/16/18 09:11 Polyethylene Glycol (Miralax) 17 gm HSPRN PRN ORAL Constipation 04/24/18 17:15 05/24/18 17:14 Kelsie Ibarra M.D. May 16, 2018 12:36
--- NOTE | 2018-05-16 14:21 | General Progress Note ---
Assessment/Plan Problem List: (1) Head ache ICD Codes: R51 - Headache SNOMED: 37798840 (2) Weak ICD Codes: R53.1 - Weakness SNOMED: 86102898 (3) HTN (hypertension) ICD Codes: I10 - Essential (primary) hypertension SNOMED: 35626317 (4) Malnutrition ICD Codes: E46 - Unspecified protein-calorie malnutrition SNOMED: 99922587 (5) Epilepsy ICD Codes: G40.909 - Epilepsy, unspecified, not intractable, without status epilepticus SNOMED: 84741323 (6) Intractable pain ICD Codes: R52 - Pain, unspecified SNOMED: 37187290 (7) Phenytoin toxicity ICD Codes: T42.0X1A - Poisoning by hydantoin derivatives, accidental ( unintentional), initial encounter SNOMED: 69150385 Status: unchanged Assessment/Plan pt diet pain control neuro gi psyc eval abx prn cbc bmp am transfer to higher level facility Subjective Constitutional: Reports: weakness Allergies: Coded Allergies: GADOBUTROL (Verified Allergy, Intermediate, 04/30/18) PHENYTOIN (Verified Allergy, Unknown, 05/03/18) Drug hypersensitivity syndrome; hepatotoxicity Uncoded Allergies: CONTRAST (Allergy, Mild, Rash, 05/03/18) questionable if it was due to contrast; patient at the time (Mar-April 2018) also had dilantin reaction (probably rash was due to dilantin) All Systems: reviewed and negative except above Subjective sleepy calm Objective Last 24 Hour Vital Signs Date Time Temp Pulse Resp B/P (MAP) Pulse Ox O2 Delivery O2 Flow Rate FiO2 05/16/18 12:00 98.2 89 18 117/76 (90) 99 05/16/18 09:00 Room Air Room Air 05/16/18 08:00 98.0 100 18 117/82 (94) 99 05/16/18 04:00 96.8 95 18 124/77 (93) 94 05/15/18 20:36 Room Air Room Air 05/15/18 20:09 98.6 95 18 122/72 (89) 97 05/15/18 16:00 98.4 94 19 119/73 (88) 95 Intake and Output 05/15/18 05/16/18 19:00 07:00 Intake Total 980 ml 300 ml Output Total 350 ml 1200 ml Balance 630 ml -900 ml Intake Oral 480 ml 300 ml IV Total 500 ml Output Urine Total 350 ml 1200 ml # Voids 3 Laboratory Tests 05/16/18 05:25: White Blood Count 10.7, Red Blood Count 2.75L, Hemoglobin 8.6L, Hematocrit 26.3L , Mean Corpuscular Volume 96, Mean Corpuscular Hemoglobin 31.3H, Mean Corpuscular Hemoglobin Concent 32.7, Red Cell Distribution Width 14.4, Platelet Count 820H, Mean Platelet Volume 5.7L, Neutrophils (%) (Auto) , Lymphocytes (%) (Auto) , Monocytes (%) (Auto) , Eosinophils (%) (Auto) , Basophils (%) (Auto) , Differential Total Cells Counted 100, Neutrophils % (Manual) 44L, Lymphocytes % (Manual) 16L, Monocytes % (Manual) 10, Eosinophils % (Manual) 30H, Basophils % ( Manual) 0, Band Neutrophils 0, Platelet Estimate IncreasedH, Platelet Morphology Normal, Hypochromasia 1+, Anisocytosis 1+, Target Cells Occasional, Stomatocytes Occasional, Sodium Level 131L, Potassium Level 4.3, Chloride Level 98, Carbon Dioxide Level 25, Anion Gap 8, Blood Urea Nitrogen 15, Creatinine 1.3 , Estimat Glomerular Filtration Rate > 60, Glucose Level 87, Calcium Level 9.3, Total Bilirubin 18.3H, Direct Bilirubin 16.9H, Aspartate Amino Transf (AST/SGOT ) 287H, Alanine Aminotransferase (ALT/SGPT) 257H, Alkaline Phosphatase > 2000H, Total Protein 6.0L, Albumin 1.9L, Globulin 4.1, Albumin/Globulin Ratio 0.5L Height (Feet): 5 Height (Inches): 11.00 Weight (Pounds): 154 General Appearance: lethargic EENT: normal ENT inspection Neck: normal alignment Cardiovascular: normal peripheral pulses, normal rate, regular rhythm Respiratory/Chest: chest wall non-tender, lungs clear, normal breath sounds Abdomen: normal bowel sounds, non tender, soft Extremities: normal inspection Edema: no edema noted Arm (L), no edema noted Arm (R), no edema noted Leg (L), no edema noted Leg (R), no edema noted Pedal (L), no edema noted Pedal (R), no edema noted Generalized Neurologic: motor weakness Skin: normal pigmentation, warm/dry CatNeri Chi-Jailene DO May 16, 2018 14:21
--- NOTE | 2018-05-16 14:40 | NUR ---
NURSE NOTES: New IV started on left forearm 22 gauge. Asymptomatic, intact and patent.
--- NOTE | 2018-05-16 14:42 | Nephrology Progress Note ---
Assessment/Plan Assessment 1. Hypovolemic hyponatremia 2.hyperkalemia (Shannon dz?) 3. History of brain tumor, status post craniotomy. 4. History of seizure. 5.elevated liver enzyme Plan continue ivf low k diet monitoring renal function avoid NSAID Mix all ivpb with NS.9 Subjective Subjective mental status is improving Objective Objective Last 24 Hour Vital Signs Date Time Temp Pulse Resp B/P (MAP) Pulse Ox O2 Delivery O2 Flow Rate FiO2 05/16/18 12:00 98.2 89 18 117/76 (90) 99 05/16/18 09:00 Room Air Room Air 05/16/18 08:00 98.0 100 18 117/82 (94) 99 05/16/18 04:00 96.8 95 18 124/77 (93) 94 05/15/18 20:36 Room Air Room Air 05/15/18 20:09 98.6 95 18 122/72 (89) 97 05/15/18 16:00 98.4 94 19 119/73 (88) 95 Intake and Output 05/15/18 05/16/18 19:00 07:00 Intake Total 980 ml 300 ml Output Total 350 ml 1200 ml Balance 630 ml -900 ml Intake Oral 480 ml 300 ml IV Total 500 ml Output Urine Total 350 ml 1200 ml # Voids 3 Laboratory Tests 05/16/18 05:25: White Blood Count 10.7, Red Blood Count 2.75L, Hemoglobin 8.6L, Hematocrit 26.3L , Mean Corpuscular Volume 96, Mean Corpuscular Hemoglobin 31.3H, Mean Corpuscular Hemoglobin Concent 32.7, Red Cell Distribution Width 14.4, Platelet Count 820H, Mean Platelet Volume 5.7L, Neutrophils (%) (Auto) , Lymphocytes (%) (Auto) , Monocytes (%) (Auto) , Eosinophils (%) (Auto) , Basophils (%) (Auto) , Differential Total Cells Counted 100, Neutrophils % (Manual) 44L, Lymphocytes % (Manual) 16L, Monocytes % (Manual) 10, Eosinophils % (Manual) 30H, Basophils % ( Manual) 0, Band Neutrophils 0, Platelet Estimate IncreasedH, Platelet Morphology Normal, Hypochromasia 1+, Anisocytosis 1+, Target Cells Occasional, Stomatocytes Occasional, Sodium Level 131L, Potassium Level 4.3, Chloride Level 98, Carbon Dioxide Level 25, Anion Gap 8, Blood Urea Nitrogen 15, Creatinine 1.3 , Estimat Glomerular Filtration Rate > 60, Glucose Level 87, Calcium Level 9.3, Total Bilirubin 18.3H, Direct Bilirubin 16.9H, Aspartate Amino Transf (AST/SGOT ) 287H, Alanine Aminotransferase (ALT/SGPT) 257H, Alkaline Phosphatase > 2000H, Total Protein 6.0L, Albumin 1.9L, Globulin 4.1, Albumin/Globulin Ratio 0.5L Height (Feet): 5 Height (Inches): 11.00 Weight (Pounds): 154 Objective HEAD AND NECK: He has scar from the craniotomy. No LAD. Extraocular movement intact. Pupils are reactive to light and accommodation. LUNGS: Clear to auscultation. CARDIAC: Regular rate and rhythm. S1 and S2. No murmur. No rub. ABDOMEN: Soft, nontender, and nondistended. EXTREMITIES: No edema. No clubbing. No cyanosis. Marielena Romero MD May 16, 2018 14:42
--- NOTE | 2018-05-16 14:45 | NUR ---
RD ASSESSMENT & RECOMMENDATIONS SEE CARE ACTIVITY FOR COMPLETE ASSESSMENT DAILY ESTIMATED NEEDS: Needs based on Underweight, hepatic, wound 66kg 25-35 kcals/kg 2191-7973 total kcals 1.25-1.5 g protein/kg 83-99 g total protein 25-30 mL/kg 7323-3567 total fluid mLs NUTRITION DIAGNOSIS: 1) Increased kcal and protein needs r/t low weight and wound healing as evidenced by pt is 84% of ideal body weight, w. poor po intake, w/ partial thickness anterior head injury. 2) Altered nutrition related lab values r/t clinical status, transaminitis as evidenced by elev T bili (18.3 trend up) w/ elev LFT's, elev NH3 (46). CURRENT DIET:Soft ms chopped + ensure TID PO DIET RECOMMENDATIONS: REC LOW NA/ LOW FAT DIET W/ CURRENT IMPROVED PO INTAKE ADDITIONAL RECOMMENDATIONS: 1) H/o seizures and brain tumor-- rec [employer] eval for appropriate texture -> pt requesting texture upgrade 2) Wound care: ROGELIO BID + MVI + VIT C 250mg daily 3) Obtain a calibrated bed scale wt as able -> extended length of stay 4) Ensure Enlive QD w/ breakfast- pt requesting only one a day . .
--- NOTE | 2018-05-16 14:53 | NUR ---
*-* INSURANCE *-* REVIEWS HAVE BEEN FAXED TO: YENIFER LAUGHLIN PLEASE FAX THE REVIEW/CLINICAL NO STAKE SETTER ASSIGNED AT THIS TIME P- [phone] F- [phone]
[2018-05-16 16:00] VITALS: BP 110/72
--- NOTE | 2018-05-16 19:18 | NUR ---
HAND-OFF: Report given to BELEN Orta.
--- NOTE | 2018-05-16 19:50 | NUR ---
NURSE NOTES: Patient resting in bed no s/s distress noted. Sister at the bedside. Bed alarm on, in lowest position for safety. PRN pain medication given for headache. Will continue plan of care.
[2018-05-16 20:00] VITALS: BP 113/70
[2018-05-17] VITALS: BP 118/82
[2018-05-17 04:00] VITALS: BP 111/77
[2018-05-17] MEDS: oxyCODONE 5mg IR tab ORAL PRN ×4 (05:57→22:19)
[2018-05-17 06:54] LABS: BASOPHILS % (AUTO) 3.6 % (0.0-2.0); EOSINOPHILS % (AUTO) 19.4 % (0.0-3.0); HEMATOCRIT 25.2 % (42.0-52.0); HEMOGLOBIN 8.4 G/DL (14.2-18.0); MEAN CORPUSCULAR VOLUME 95 FL (80-99); NEUTROPHILS % (AUTO) 43.1 % (45.0-75.0); PLATELET COUNT 799 K/UL (150-450); RED BLOOD COUNT 2.65 M/UL (4.70-6.10); RED CELL DISTRIBUTION WIDTH 14.5 % (11.6-14.8); WHITE BLOOD COUNT 9.9 K/UL (4.8-10.8)
--- NOTE | 2018-05-17 07:20 | NUR ---
HAND-OFF: Report given to Channing GLOVER.
[2018-05-17 07:34] LABS: ALANINE AMINOTRANSFERASE 290 U/L (12-78); ALBUMIN/GLOBULIN RATIO 0.5 (1.0-2.7); ALKALINE PHOSPHATASE > 2000 U/L (46-116); ANION GAP 12 mmol/L (5-15); BILIRUBIN,TOTAL 19.3 MG/DL (0.2-1.0); BLOOD UREA NITROGEN 16 mg/dL (7-18); CALCIUM 9.5 MG/DL (8.5-10.1); CARBON DIOXIDE 24 MMOL/L (21-32); CHLORIDE 96 MMOL/L (98-107); CREATININE 1.4 MG/DL (0.55-1.30); POTASSIUM 4.3 MMOL/L (3.5-5.1); SODIUM 132 MMOL/L (136-145)
[2018-05-17 07:36] LABS: BILIRUBIN,DIRECT 15.9 MG/DL (0.0-0.3)
[2018-05-17 08:00] VITALS: BP 101/64
[2018-05-17 08:04] LABS: ASPARTATE AMINO TRANSFERASE 313 U/L (15-37)
--- NOTE | 2018-05-17 08:37 | General Progress Note ---
Assessment/Plan Assessment/Plan (1) Headache (2) Brain neoplasm s/p craniotomy and resection Patient to be continued on Neurontin and Oxycodone. D/w Dr. Delarosa and he concurred. Subjective Date patient seen: May 17, 2018 Time patient seen: 07:00 - am Allergies: Coded Allergies: GADOBUTROL (Verified Allergy, Intermediate, 04/30/18) PHENYTOIN (Verified Allergy, Unknown, 05/03/18) Drug hypersensitivity syndrome; hepatotoxicity Uncoded Allergies: CONTRAST (Allergy, Mild, Rash, 05/03/18) questionable if it was due to contrast; patient at the time (April 2018) also had dilantin reaction (probably rash was due to dilantin) Subjective REVIEW OF SYSTEMS: Denies rash, fever, chills, sweating, dizziness, drowsiness, blurred vision, sore throat, or change in his weight. No shortness of breath, chest pain, palpitations, or cough. No nausea, vomiting, diarrhea, or blood in stool or urine. SUBJECTIVE: Patient has no new complaints. Pain has been stable and tolerated on the Oxycodone. Showing no signs of pain or distress at this time. Objective Last 24 Hour Vital Signs Date Time Temp Pulse Resp B/P (MAP) Pulse Ox O2 Delivery O2 Flow Rate FiO2 05/17/18 04:00 98.0 90 19 111/77 (88) 96 05/17/18 00:00 98.5 91 18 118/82 (94) 97 05/16/18 21:00 Room Air Room Air 05/16/18 20:00 98.2 89 19 113/70 (84) 96 05/16/18 16:00 98.3 94 18 110/72 (85) 97 05/16/18 12:00 98.2 89 18 117/76 (90) 99 05/16/18 09:00 Room Air Room Air Intake and Output 05/16/18 05/17/18 18:59 06:59 Intake Total 1000 ml 360 ml Balance 1000 ml 360 ml Intake Oral 1000 ml 360 ml # Voids 6 3 Laboratory Tests 05/17/18 05:35: White Blood Count 9.9, Red Blood Count 2.65L, Hemoglobin 8.4L, Hematocrit 25.2L , Mean Corpuscular Volume 95, Mean Corpuscular Hemoglobin 31.6H, Mean Corpuscular Hemoglobin Concent 33.2, Red Cell Distribution Width 14.5, Platelet Count 799H, Mean Platelet Volume 5.2L, Neutrophils (%) (Auto) 43.1L, Lymphocytes (%) (Auto) 26.0, Monocytes (%) (Auto) 8.0, Eosinophils (%) (Auto) 19.4H, Basophils (%) (Auto) 3.6H, Sodium Level 132L, Potassium Level 4.3, Chloride Level 96L, Carbon Dioxide Level 24, Anion Gap 12, Blood Urea Nitrogen 16, Creatinine 1.4H, Estimat Glomerular Filtration Rate > 60, Glucose Level 87, Calcium Level 9.5, Total Bilirubin 19.3H, Direct Bilirubin 15.9H, Aspartate Amino Transf (AST/SGOT) 313H, Alanine Aminotransferase (ALT/SGPT) 290H, Alkaline Phosphatase > 2000H, Total Protein 6.1L, Albumin 2.0L, Globulin 4.1, Albumin/Globulin Ratio 0.5L Height (Feet): 5 Height (Inches): 11.00 Weight (Pounds): 151 Objective GENERAL: Alert, awake, and oriented. LUNGS: Clear bilaterally. HEART: S1 and S2, regular. ABDOMEN: Soft and nontender. EXTREMITIES: No cyanosis. No clubbing. No edema. NEURO: No changes. Albert Hoyos May 17, 2018 08:37
[2018-05-17] MEDS: Lactulose 10gm/15ml UDC ORAL SCH (08:49)
[2018-05-17] MEDS: Heparin 5000 units/ml inj SUBQ SCH ×2 (08:57→20:10)
--- NOTE | 2018-05-17 09:14 | Nephrology Progress Note ---
Assessment/Plan Assessment 1. Hypovolemic hyponatremia 2.MICHELLE 3. History of brain tumor, status post craniotomy. 4. History of seizure. 5.elevated liver enzyme Plan check urine study low k diet monitoring renal function avoid NSAID Mix all ivpb with NS.9 Subjective Constitutional: Reports: no symptoms HEENT: Reports: no symptoms Genitourinary: Reports: no symptoms Neurologic/Psychiatric: Reports: no symptoms Subjective Poor appetite mental status is improving Objective Objective Last 24 Hour Vital Signs Date Time Temp Pulse Resp B/P (MAP) Pulse Ox O2 Delivery O2 Flow Rate FiO2 05/17/18 04:00 98.0 90 19 111/77 (88) 96 05/17/18 00:00 98.5 91 18 118/82 (94) 97 05/16/18 21:00 Room Air Room Air 05/16/18 20:00 98.2 89 19 113/70 (84) 96 05/16/18 16:00 98.3 94 18 110/72 (85) 97 05/16/18 12:00 98.2 89 18 117/76 (90) 99 Intake and Output 05/16/18 05/17/18 18:59 06:59 Intake Total 1000 ml 360 ml Balance 1000 ml 360 ml Intake Oral 1000 ml 360 ml # Voids 6 3 Laboratory Tests 05/17/18 05:35: White Blood Count 9.9, Red Blood Count 2.65L, Hemoglobin 8.4L, Hematocrit 25.2L , Mean Corpuscular Volume 95, Mean Corpuscular Hemoglobin 31.6H, Mean Corpuscular Hemoglobin Concent 33.2, Red Cell Distribution Width 14.5, Platelet Count 799H, Mean Platelet Volume 5.2L, Neutrophils (%) (Auto) 43.1L, Lymphocytes (%) (Auto) 26.0, Monocytes (%) (Auto) 8.0, Eosinophils (%) (Auto) 19.4H, Basophils (%) (Auto) 3.6H, Sodium Level 132L, Potassium Level 4.3, Chloride Level 96L, Carbon Dioxide Level 24, Anion Gap 12, Blood Urea Nitrogen 16, Creatinine 1.4H, Estimat Glomerular Filtration Rate > 60, Glucose Level 87, Calcium Level 9.5, Total Bilirubin 19.3H, Direct Bilirubin 15.9H, Aspartate Amino Transf (AST/SGOT) 313H, Alanine Aminotransferase (ALT/SGPT) 290H, Alkaline Phosphatase > 2000H, Total Protein 6.1L, Albumin 2.0L, Globulin 4.1, Albumin/Globulin Ratio 0.5L Height (Feet): 5 Height (Inches): 11.00 Weight (Pounds): 151 Objective HEAD AND NECK: He has scar from the craniotomy. No LAD. Extraocular movement intact. Pupils are reactive to light and accommodation. LUNGS: Clear to auscultation. CARDIAC: Regular rate and rhythm. S1 and S2. No murmur. No rub. ABDOMEN: Soft, nontender, and nondistended. EXTREMITIES: No edema. No clubbing. No cyanosis. Marielena Romero MD May 17, 2018 09:14
--- NOTE | 2018-05-17 11:09 | NUR ---
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 BRAIN TUMOR VS: BP 101/64, P 94, T 98.5, RR 18, SpO2 97 RBC 2.65, Hgb 8.4, Hct 25.2, Na 132, Total Bilirubin 19.3, AST 313, ALT 290 IS:GABAPENTIN 600mg OXYCODONE HCI 5mg LACTULOSE 10gm HEPARIN SUBQ MED/SURG STATUS
[2018-05-17 12:00] VITALS: BP 107/68
--- NOTE | 2018-05-17 12:11 | GI Progress Note ---
Assessment/Plan Problems: (1) Weak ICD Codes: R53.1 - Weakness SNOMED: 65807440 (2) Malnutrition ICD Codes: E46 - Unspecified protein-calorie malnutrition SNOMED: 07660335 (3) Brain tumor ICD Codes: D49.6 - Neoplasm of unspecified behavior of brain SNOMED: 529327390 (4) Transaminitis ICD Codes: R74.0 - Nonspecific elevation of levels of transaminase and lactic acid dehydrogenase [LDH] SNOMED: 414665972, 175062247 (5) Anemia ICD Codes: D64.9 - Anemia, unspecified SNOMED: 029098692 (6) Intractable pain ICD Codes: R52 - Pain, unspecified SNOMED: 72599311 (7) Phenytoin toxicity ICD Codes: T42.0X1A - Poisoning by hydantoin derivatives, accidental ( unintentional), initial encounter SNOMED: 91623804 (8) Drug-induced hepatic toxicity ICD Codes: K71.6 - Toxic liver disease with hepatitis, not elsewhere classified ; T50.905A - Adverse effect of unspecified drugs, medicaments and biological substances, initial encounter SNOMED: 537013185 Status: unchanged Status Narrative Discussed with Dr. Kimball. Assessment/Plan Head CT reviewed lipase normal abdominal US reviewed, negative Hepatitis panel, negative MRCP reviewed, negative for common bile duct dilation. Possible cholecystitis. AMA, REHAN and SMA negative OB stool negative Keppra level normal Phenytoin toxicity >> DC Dilantin Liver biopsy, drug induced hepatitis. MELD score = 28, patient needs tertiary care for liver transplant. will order social work to begin looking for center. dc all medications LFTS almost leveling off >> cont monitoring Thorazine as needed monitor H&H, prn transfusions bowel regime lactulose + xifaxan follow labs The patient was seen and examined at bedside and all new and available data was reviewed in the patients chart. I agree with the above findings, impression and plan. (Patient seen earlier today. Signature stamp does not reflect patient encounter time.). - Barry Kimball MD Subjective Subjective occasional headache Objective Last 24 Hour Vital Signs Date Time Temp Pulse Resp B/P (MAP) Pulse Ox O2 Delivery O2 Flow Rate FiO2 05/17/18 08:00 98.1 88 18 101/64 (76) 96 05/17/18 04:00 98.0 90 19 111/77 (88) 96 05/17/18 00:00 98.5 91 18 118/82 (94) 97 05/16/18 21:00 Room Air Room Air 05/16/18 20:00 98.2 89 19 113/70 (84) 96 05/16/18 16:00 98.3 94 18 110/72 (85) 97 Intake and Output 05/16/18 05/17/18 18:59 06:59 Intake Total 1000 ml 360 ml Balance 1000 ml 360 ml Intake Oral 1000 ml 360 ml # Voids 6 3 Laboratory Tests Test 05/17/18 05:35 White Blood Count 9.9 K/UL (4.8-10.8) Red Blood Count 2.65 M/UL (4.70-6.10) L Hemoglobin 8.4 G/DL (14.2-18.0) L Hematocrit 25.2 % (42.0-52.0) L Mean Corpuscular Volume 95 FL (80-99) Mean Corpuscular Hemoglobin 31.6 PG (27.0-31.0) H Mean Corpuscular Hemoglobin Concent 33.2 G/DL (32.0-36.0) Red Cell Distribution Width 14.5 % (11.6-14.8) Platelet Count 799 K/UL (150-450) H Mean Platelet Volume 5.2 FL (6.5-10.1) L Neutrophils (%) (Auto) 43.1 % (45.0-75.0) L Lymphocytes (%) (Auto) 26.0 % (20.0-45.0) Monocytes (%) (Auto) 8.0 % (1.0-10.0) Eosinophils (%) (Auto) 19.4 % (0.0-3.0) H Basophils (%) (Auto) 3.6 % (0.0-2.0) H Sodium Level 132 MMOL/L (136-145) L Potassium Level 4.3 MMOL/L (3.5-5.1) Chloride Level 96 MMOL/L (98-107) L Carbon Dioxide Level 24 MMOL/L (21-32) Anion Gap 12 mmol/L (5-15) Blood Urea Nitrogen 16 mg/dL (7-18) Creatinine 1.4 MG/DL (0.55-1.30) H Estimat Glomerular Filtration Rate > 60 mL/min (>60) Glucose Level 87 MG/DL (74-106) Calcium Level 9.5 MG/DL (8.5-10.1) Total Bilirubin 19.3 MG/DL (0.2-1.0) H Direct Bilirubin 15.9 MG/DL (0.0-0.3) H Aspartate Amino Transf (AST/SGOT) 313 U/L (15-37) H Alanine Aminotransferase (ALT/SGPT) 290 U/L (12-78) H Alkaline Phosphatase > 2000 U/L (46-116) H Total Protein 6.1 G/DL (6.4-8.2) L Albumin 2.0 G/DL (3.4-5.0) L Globulin 4.1 g/dL Albumin/Globulin Ratio 0.5 (1.0-2.7) L Height (Feet): 5 Height (Inches): 11.00 Weight (Pounds): 151 General Appearance: WD/WN, no apparent distress, alert, thin Cardiovascular: normal rate Respiratory/Chest: normal breath sounds, no respiratory distress Abdominal Exam: normal bowel sounds, non tender, soft Extremities: normal range of motion, non-tender Bhupendra Barriga NP May 17, 2018 12:11
--- NOTE | 2018-05-17 12:11 | NUR ---
[employer]LE HRMS DEVELOPER NOTES SPOKE WITH ADRIAN SHEIKH FROM [facility], MADE AWARE OF PT REQUIRING TRANSFER TO A HIGHER LEVEL OF CARE. REQUEST AND CLINICALS REFAXED TO [phone]
[2018-05-17] MEDS: Lactulose 20gm/30ml UDC ORAL SCH ×2 (13:41→17:32)
--- NOTE | 2018-05-17 14:19 | Surgery Progress Note ---
Surgery Progress Note Subjective Additional Comments resting comfortable. ill appearing with jaundice. labs worse. needs transfer to liver center Objective Last 24 Hour Vital Signs Date Time Temp Pulse Resp B/P (MAP) Pulse Ox O2 Delivery O2 Flow Rate FiO2 05/17/18 08:00 98.1 88 18 101/64 (76) 96 05/17/18 04:00 98.0 90 19 111/77 (88) 96 05/17/18 00:00 98.5 91 18 118/82 (94) 97 05/16/18 21:00 Room Air Room Air 05/16/18 20:00 98.2 89 19 113/70 (84) 96 05/16/18 16:00 98.3 94 18 110/72 (85) 97 I&O Intake and Output 05/16/18 05/17/18 18:59 06:59 Intake Total 1000 ml 360 ml Balance 1000 ml 360 ml Intake Oral 1000 ml 360 ml # Voids 6 3 Drains: none Cardiovascular: RSR Respiratory: clear Abdomen: soft, non-tender, present bowel sounds, other Extremities: no tenderness, no cyanosis Laboratory Tests Test 05/17/18 05:35 White Blood Count 9.9 K/UL (4.8-10.8) Red Blood Count 2.65 M/UL (4.70-6.10) L Hemoglobin 8.4 G/DL (14.2-18.0) L Hematocrit 25.2 % (42.0-52.0) L Mean Corpuscular Volume 95 FL (80-99) Mean Corpuscular Hemoglobin 31.6 PG (27.0-31.0) H Mean Corpuscular Hemoglobin Concent 33.2 G/DL (32.0-36.0) Red Cell Distribution Width 14.5 % (11.6-14.8) Platelet Count 799 K/UL (150-450) H Mean Platelet Volume 5.2 FL (6.5-10.1) L Neutrophils (%) (Auto) 43.1 % (45.0-75.0) L Lymphocytes (%) (Auto) 26.0 % (20.0-45.0) Monocytes (%) (Auto) 8.0 % (1.0-10.0) Eosinophils (%) (Auto) 19.4 % (0.0-3.0) H Basophils (%) (Auto) 3.6 % (0.0-2.0) H Sodium Level 132 MMOL/L (136-145) L Potassium Level 4.3 MMOL/L (3.5-5.1) Chloride Level 96 MMOL/L (98-107) L Carbon Dioxide Level 24 MMOL/L (21-32) Anion Gap 12 mmol/L (5-15) Blood Urea Nitrogen 16 mg/dL (7-18) Creatinine 1.4 MG/DL (0.55-1.30) H Estimat Glomerular Filtration Rate > 60 mL/min (>60) Glucose Level 87 MG/DL (74-106) Calcium Level 9.5 MG/DL (8.5-10.1) Total Bilirubin 19.3 MG/DL (0.2-1.0) H Direct Bilirubin 15.9 MG/DL (0.0-0.3) H Aspartate Amino Transf (AST/SGOT) 313 U/L (15-37) H Alanine Aminotransferase (ALT/SGPT) 290 U/L (12-78) H Alkaline Phosphatase > 2000 U/L (46-116) H Total Protein 6.1 G/DL (6.4-8.2) L Albumin 2.0 G/DL (3.4-5.0) L Globulin 4.1 g/dL Albumin/Globulin Ratio 0.5 (1.0-2.7) L Plan Problems: (1) Transaminitis Assessment & Plan: reviewed chart discussed with GI likely due to drug toxicity. Her biopsy resulted and noted. Likely drug induced toxicity as no infectious or other process noted macro micro changes noted Rx reviewed and seems that most of his hepatotoxic medications have been DC'd. hep panel negative labs worsening Agree with GI labs worsening MELD noted. given no improvement, acute liver toxicity, will need transfer to liver transplant center - team working on transfer but no center provided yet (2) Elevated alkaline phosphatase level (3) Intractable pain Assessment & Plan: US noted - The liver is unremarkable. The gallbladder is unremarkable. The demonstrated part of the pancreas, aorta and IVC show no abnormalities. Both kidneys appear unremarkable. The spleen is normal in size. There is no biliary ductal dilatation identified. Doppler evaluation of the main portal vein shows patency. There is no ascites. No hydronephrosis seen. CBD is 3 mm. MRI noted - No definite gallstones. However, there is gallbladder wall edema and pericholecystic fluid. Could indicate acalculous acute cholecystitis or cholecystitis due to an occult calculus. Alternatively, this could represent reactive changes secondary to adjacent hepatocellular inflammation. Consider hepatobiliary nuclear scan if there is high clinical suspicion for acute cholecystitis. Negative for biliary ductal dilatation. HIDA noted - Poor hepatic tracer uptake, no biliary excretion. Findings most likely represents severe hepatocellular disease. Findings are nondiagnostic as regards cystic duct or common bile duct patency Liver biopsy with drug induced hepat changes possible acute acalculous cholecystitis. exam difficult given history labs with resolved leukocytosis lft's abnormal from drug toxicity - levels still elevated. trend labs okay for diet will follow clinically (4) Sepsis Jamin Lynch May 17, 2018 14:19
--- NOTE | 2018-05-17 14:43 | General Progress Note ---
Assessment/Plan Problem List: (1) Head ache ICD Codes: R51 - Headache SNOMED: 32611284 (2) Weak ICD Codes: R53.1 - Weakness SNOMED: 73120083 (3) HTN (hypertension) ICD Codes: I10 - Essential (primary) hypertension SNOMED: 73129041 (4) Malnutrition ICD Codes: E46 - Unspecified protein-calorie malnutrition SNOMED: 13879874 (5) Epilepsy ICD Codes: G40.909 - Epilepsy, unspecified, not intractable, without status epilepticus SNOMED: 69601889 (6) Intractable pain ICD Codes: R52 - Pain, unspecified SNOMED: 73369476 (7) Phenytoin toxicity ICD Codes: T42.0X1A - Poisoning by hydantoin derivatives, accidental ( unintentional), initial encounter SNOMED: 71711022 Status: unchanged Assessment/Plan pt diet pain control neuro gi psyc eval abx prn cbc bmp am transfer to higher level facility Subjective Allergies: Coded Allergies: GADOBUTROL (Verified Allergy, Intermediate, 04/30/18) PHENYTOIN (Verified Allergy, Unknown, 05/03/18) Drug hypersensitivity syndrome; hepatotoxicity Uncoded Allergies: CONTRAST (Allergy, Mild, Rash, 05/03/18) questionable if it was due to contrast; patient at the time (Mar-April 2018) also had dilantin reaction (probably rash was due to dilantin) All Systems: reviewed and negative except above Subjective sleepy calm Objective Last 24 Hour Vital Signs Date Time Temp Pulse Resp B/P (MAP) Pulse Ox O2 Delivery O2 Flow Rate FiO2 05/17/18 12:00 97.7 80 16 107/68 (81) 97 05/17/18 09:00 Room Air Room Air 05/17/18 08:00 98.1 88 18 101/64 (76) 96 05/17/18 04:00 98.0 90 19 111/77 (88) 96 05/17/18 00:00 98.5 91 18 118/82 (94) 97 05/16/18 21:00 Room Air Room Air 05/16/18 20:00 98.2 89 19 113/70 (84) 96 05/16/18 16:00 98.3 94 18 110/72 (85) 97 Intake and Output 05/16/18 05/17/18 18:59 06:59 Intake Total 1000 ml 360 ml Balance 1000 ml 360 ml Intake Oral 1000 ml 360 ml # Voids 6 3 Laboratory Tests 05/17/18 05:35: White Blood Count 9.9, Red Blood Count 2.65L, Hemoglobin 8.4L, Hematocrit 25.2L , Mean Corpuscular Volume 95, Mean Corpuscular Hemoglobin 31.6H, Mean Corpuscular Hemoglobin Concent 33.2, Red Cell Distribution Width 14.5, Platelet Count 799H, Mean Platelet Volume 5.2L, Neutrophils (%) (Auto) 43.1L, Lymphocytes (%) (Auto) 26.0, Monocytes (%) (Auto) 8.0, Eosinophils (%) (Auto) 19.4H, Basophils (%) (Auto) 3.6H, Sodium Level 132L, Potassium Level 4.3, Chloride Level 96L, Carbon Dioxide Level 24, Anion Gap 12, Blood Urea Nitrogen 16, Creatinine 1.4H, Estimat Glomerular Filtration Rate > 60, Glucose Level 87, Calcium Level 9.5, Total Bilirubin 19.3H, Direct Bilirubin 15.9H, Aspartate Amino Transf (AST/SGOT) 313H, Alanine Aminotransferase (ALT/SGPT) 290H, Alkaline Phosphatase > 2000H, Total Protein 6.1L, Albumin 2.0L, Globulin 4.1, Albumin/Globulin Ratio 0.5L Height (Feet): 5 Height (Inches): 11.00 Weight (Pounds): 151 General Appearance: lethargic EENT: normal ENT inspection Neck: normal alignment Cardiovascular: normal peripheral pulses, normal rate, regular rhythm Respiratory/Chest: chest wall non-tender, lungs clear, normal breath sounds Abdomen: normal bowel sounds, non tender, soft Extremities: normal inspection Edema: no edema noted Arm (L), no edema noted Arm (R), no edema noted Leg (L), no edema noted Leg (R), no edema noted Pedal (L), no edema noted Pedal (R), no edema noted Generalized Neurologic: motor weakness Skin: normal pigmentation, warm/dry Neri Cat DO May 17, 2018 14:43
--- NOTE | 2018-05-17 15:12 | Infectious Diseases Prog Note ---
Assessment/Plan Assessment/Plan Assessment: Sepsis; improving- likely due to probable acute acalculous cholecystitis Fever , recurrent- probably due to drug induced hepatitis- now resovled ?PNA -CXR: Mildly increased interstitial markings. This is nonspecific and cannot exclude a mild bronchitis or interstitial pneumonitis. No focal consolidation. -wound cx craniotomy incision: MSSA (wound doesnt appaer infected) -bcx Neg -influenza sc neg Mild leukocytosis,recurrent; resolved Elevated LFTs, improving (probably due to both cholecystitis and toxic phenytoin levels); Elev alk and Leno )ALP >> AST, ALT); worsening- -05/05 SP Liver biopsy: verbal report drug induced. -HIDA scan: Poor hepatic tracer uptake, no biliary excretion. Findings most likely represents severe hepatocellular disease. Findings are nondiagnostic as regards cystic duct or common bile duct patency -MRCP:No definite gallstones. However, there is gallbladder wall edema and pericholecystic fluid. Could indicate acalculous acute cholecystitis or cholecystitis due to an occult calculus. Alternatively, this could represent reactive changes secondary to adjacent hepatocellular inflammation. Consider hepatobiliary nuclear scan if there is high clinical suspicion for acute cholecystitis. Negative for biliary ductal dilatation. Periportal edema. This can be seen acute hepatitis or right heart failure, among other possibilities -Abd US: No acute findings. 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 Please correlate with the surgical history. Some enhancement of the dura along the anterior interhemispheric fissure and within the surgical bed is not unexpected given the recent surgery. However, the possibility of residual neoplasm is not excludable. There are no reference studies to compare to the preoperative MRI available. Other notable postsurgical finding includes a small fluid collection within the surgical bed deep to the bifrontal craniotomy flap and mild edema within the frontal lobes -CT brain wo: Postsurgical changes associated with relatively recent bifrontal craniotomy likely resection of a mass in the area of the interhemispheric fissure. 6 mm thick mixed attenuation extra-axial blood noted within the surgical bed. Please correlate with the operative report and comparison with prior studies is strongly recommended. -ESR 42, CRP 16.2 -HIV ag/ab neg MICHELLE (supratherapuetic vanco levels) Recent Brain tumor removal (1 month ago) seizure disorder GERD Tobacco use Drug rash- likely 2ry to Phenytoin Plan: -Given drug induced liver damage on pathology - will do an antibiotic free period to evaluate if any of these are a potential culprit. -05/09 SP Meropenem #9, Micafungin #2 -/ SP IV Vancomycin #7 -/4 SP Cefepime #6 -Will hold on LP for now as an alternative source of sepsis is considered -Monitor CBC/CMP, temperatures -GI, Sx f/u: ; ?cholecystostomy -?Transfer to [address] [place] [address] with liver service (ie transplant service)- ALP and Tbili continues to worsened to toxic levels -Nuero fu: holding Phenytoin (toxic levels; also probable drug induced hypersensitize syndrome as had rash, eosinophilia and hepatoxicity) Discussed withRN Subjective Allergies: Coded Allergies: GADOBUTROL (Verified Allergy, Intermediate, 04/30/18) PHENYTOIN (Verified Allergy, Unknown, 05/03/18) Drug hypersensitivity syndrome; hepatotoxicity Uncoded Allergies: CONTRAST (Allergy, Mild, Rash, 05/03/18) questionable if it was due to contrast; patient at the time (Mar-April 2018) also had dilantin reaction (probably rash was due to dilantin) Subjective afebrile no leukocytosis ALP and Tbili continues to worsen, now >2000 and 19, respectively AST and ALT worsening off abx awaiting transfer to [address] [place] [address] Objective Vital Signs Last 24 Hour Vital Signs Date Time Temp Pulse Resp B/P (MAP) Pulse Ox O2 Delivery O2 Flow Rate FiO2 05/17/18 12:00 97.7 80 16 107/68 (81) 97 05/17/18 09:00 Room Air Room Air 05/17/18 08:00 98.1 88 18 101/64 (76) 96 05/17/18 04:00 98.0 90 19 111/77 (88) 96 05/17/18 00:00 98.5 91 18 118/82 (94) 97 05/16/18 21:00 Room Air Room Air 05/16/18 20:00 98.2 89 19 113/70 (84) 96 05/16/18 16:00 98.3 94 18 110/72 (85) 97 Height (Feet): 5 Height (Inches): 11.00 Weight (Pounds): 151 Objective HEAD: craniotomy scar with some superficial ulceration on R left side- no signs of infection GENERAL: Anxious in bed, oriented x2, in no acute distress. CARDIOVASCULAR: No murmur. LUNGS: Distant and clear. ABDOMEN: Bowel sounds positive. Nontender. Nondistended. EXTREMITIES: No cyanosis, clubbing, or edema. NEUROLOGIC: The patient moves all extremities. Slight weakness in extremities. Skin: maculopapular rash in torso, arms Laboratory Tests Test 05/17/18 05:35 White Blood Count 9.9 K/UL (4.8-10.8) Red Blood Count 2.65 M/UL (4.70-6.10) L Hemoglobin 8.4 G/DL (14.2-18.0) L Hematocrit 25.2 % (42.0-52.0) L Mean Corpuscular Volume 95 FL (80-99) Mean Corpuscular Hemoglobin 31.6 PG (27.0-31.0) H Mean Corpuscular Hemoglobin Concent 33.2 G/DL (32.0-36.0) Red Cell Distribution Width 14.5 % (11.6-14.8) Platelet Count 799 K/UL (150-450) H Mean Platelet Volume 5.2 FL (6.5-10.1) L Neutrophils (%) (Auto) 43.1 % (45.0-75.0) L Lymphocytes (%) (Auto) 26.0 % (20.0-45.0) Monocytes (%) (Auto) 8.0 % (1.0-10.0) Eosinophils (%) (Auto) 19.4 % (0.0-3.0) H Basophils (%) (Auto) 3.6 % (0.0-2.0) H Sodium Level 132 MMOL/L (136-145) L Potassium Level 4.3 MMOL/L (3.5-5.1) Chloride Level 96 MMOL/L (98-107) L Carbon Dioxide Level 24 MMOL/L (21-32) Anion Gap 12 mmol/L (5-15) Blood Urea Nitrogen 16 mg/dL (7-18) Creatinine 1.4 MG/DL (0.55-1.30) H Estimat Glomerular Filtration Rate > 60 mL/min (>60) Glucose Level 87 MG/DL (74-106) Calcium Level 9.5 MG/DL (8.5-10.1) Total Bilirubin 19.3 MG/DL (0.2-1.0) H Direct Bilirubin 15.9 MG/DL (0.0-0.3) H Aspartate Amino Transf (AST/SGOT) 313 U/L (15-37) H Alanine Aminotransferase (ALT/SGPT) 290 U/L (12-78) H Alkaline Phosphatase > 2000 U/L (46-116) H Total Protein 6.1 G/DL (6.4-8.2) L Albumin 2.0 G/DL (3.4-5.0) L Globulin 4.1 g/dL Albumin/Globulin Ratio 0.5 (1.0-2.7) L Current Medications Medications (Trade) Dose Ordered Sig/Obdulia Route PRN Reason Start Time Stop Time Status Last Admin Dose Admin Al Hydroxide/Mg Hydroxide (Mylanta II) 30 ml Q6H PRN ORAL dyspepsia 04/24/18 17:15 05/24/18 17:14 Cetylpyridinium Chloride (Cepacol) 1 lozg Q2H PRN JORGE LUIS Discomfort from hiccups 05/09/18 15:45 06/08/18 15:44 05/11/18 09:13 Dextrose (Dextrose 50%) 25 ml Q30M PRN IV Hypoglycemia 04/24/18 17:15 05/24/18 17:14 Dextrose (Dextrose 50%) 50 ml Q30M PRN IV Hypoglycemia 04/24/18 17:15 05/24/18 17:14 Diphenhydramine HCl (Benadryl) 25 mg Q6H PRN IVP Itching 04/26/18 16:30 05/26/18 16:29 05/02/18 23:53 Gabapentin (Neurontin) 600 mg THREE TIMES A DAY ORAL 05/14/18 18:00 06/13/18 17:59 05/17/18 13:41 Heparin Sodium (Porcine) (Heparin 5000 units/ml) 5,000 units EVERY 12 HOURS SUBQ 04/24/18 21:00 05/24/18 20:59 05/17/18 08:57 Lactulose (Cephulac) 30 gm THREE TIMES A DAY ORAL 05/17/18 13:00 05/29/18 13:29 05/17/18 13:41 Ondansetron HCl (Zofran) 4 mg Q6H PRN IVP Nausea & Vomiting 04/24/18 17:15 05/24/18 17:14 05/10/18 12:29 Oxycodone HCl (Roxicodone) 5 mg Q4H PRN ORAL severe pain 05/14/18 11:16 05/21/18 14:14 05/17/18 13:41 Polyethylene Glycol (Miralax) 17 gm HSPRN PRN ORAL Constipation 04/24/18 17:15 05/24/18 17:14 Kelsie Ibarra M.D. May 17, 2018 15:12
[2018-05-17 16:00] VITALS: BP 96/58
--- NOTE | 2018-05-17 19:37 | NUR ---
HAND-OFF: Report given to BELEN BHATT.
[2018-05-17 20:00] VITALS: BP 112/69
--- NOTE | 2018-05-17 20:00 | NUR ---
NURSE NOTES: Patient received in bed, awake. Sister is at bedside. IV is intact. Patient assisted to walk to the bathroom to void. Patient's gait very unsteady, needed max assist. Safely assisted back to bed. Call light within easy reach. Will continue to monitor.
[2018-05-18] VITALS: BP 107/67
[2018-05-18 04:00] VITALS: BP 113/71
[2018-05-18] MEDS: oxyCODONE 5mg IR tab ORAL PRN ×3 (04:01→19:00)
--- NOTE | 2018-05-18 07:35 | NUR ---
HAND-OFF: Report given to Valeria GLOVER.
[2018-05-18 07:44] LABS: HEMATOCRIT 25.2 % (42.0-52.0); HEMOGLOBIN 8.4 G/DL (14.2-18.0); MEAN CORPUSCULAR VOLUME 96 FL (80-99); PLATELET COUNT 815 K/UL (150-450); RED BLOOD COUNT 2.64 M/UL (4.70-6.10); RED CELL DISTRIBUTION WIDTH 14.9 % (11.6-14.8); WHITE BLOOD COUNT 11.3 K/UL (4.8-10.8)
--- NOTE | 2018-05-18 08:00 | NUR ---
RECEIVED PATIENT IN BED AWAKE,, NO RESPIRATORY DISTRESS OR SOB DENIES NO DIZZINESS .. BUT HAS MILD DISCOMFORT TO HEAD NOTED. SISTER AT BEDSIDE 1:1 ... NO ACUTE DISTRESS PATIENT IS A FALL RISK.. KEEPING CLOSE OBSERVATION.. TOLERATING ALL P.O. MEDICATION NOTED.. CALL [facility]
[2018-05-18 08:06] LABS: ALANINE AMINOTRANSFERASE 313 U/L (12-78); ALBUMIN 2.1 G/DL (3.4-5.0); ALBUMIN/GLOBULIN RATIO 0.5 (1.0-2.7); ALKALINE PHOSPHATASE > 2000 U/L (46-116); ANION GAP 12 mmol/L (5-15); ASPARTATE AMINO TRANSFERASE 312 U/L (15-37); BILIRUBIN,TOTAL 20.2 MG/DL (0.2-1.0); BLOOD UREA NITROGEN 16 mg/dL (7-18); CALCIUM 9.5 MG/DL (8.5-10.1); CARBON DIOXIDE 24 MMOL/L (21-32); CHLORIDE 94 MMOL/L (98-107); CREATININE 1.5 MG/DL (0.55-1.30); POTASSIUM 4.4 MMOL/L (3.5-5.1); SODIUM 130 MMOL/L (136-145)
[2018-05-18 08:09] LABS: BILIRUBIN,DIRECT 18.1 MG/DL (0.0-0.3)
--- NOTE | 2018-05-18 09:08 | Nephrology Progress Note ---
Assessment/Plan Assessment 1. Hypovolemic hyponatremia 2.MICHELLE 3. History of brain tumor, status post craniotomy. 4. History of seizure. 5.elevated liver enzyme Plan check urine study low k diet monitoring renal function avoid NSAID Mix all ivpb with NS.9 Subjective Constitutional: Reports: no symptoms HEENT: Reports: no symptoms Genitourinary: Reports: no symptoms Neurologic/Psychiatric: Reports: no symptoms Subjective no acute events Objective Objective Last 24 Hour Vital Signs Date Time Temp Pulse Resp B/P (MAP) Pulse Ox O2 Delivery O2 Flow Rate FiO2 05/18/18 04:00 99.1 90 19 113/71 (85) 99 05/18/18 00:00 98.0 90 17 107/67 (80) 96 05/17/18 21:00 Room Air Room Air 05/17/18 20:00 99.0 91 17 112/69 (83) 97 05/17/18 16:00 98.5 88 19 96/58 (71) 96 05/17/18 12:00 97.7 80 16 107/68 (81) 97 Intake and Output 05/17/18 05/18/18 19:00 07:00 Intake Total 2000 ml 600 ml Balance 2000 ml 600 ml Intake Oral 2000 ml 600 ml # Voids 3 3 Laboratory Tests 05/17/18 18:45: Urine Random Creatinine [Pending], Urine Random Microalbumin [Pending], Urine Random Total Protein 59H, Urine Creatinine 123.4, Urine Microalbumin/Creatinine Ratio [Pending] 05/18/18 02:50: Urine Eosinophils Few seen 05/18/18 06:54: White Blood Count 11.3H, Red Blood Count 2.64L, Hemoglobin 8.4L, Hematocrit 25.2L, Mean Corpuscular Volume 96, Mean Corpuscular Hemoglobin 31.8H, Mean Corpuscular Hemoglobin Concent 33.3, Red Cell Distribution Width 14.9H, Platelet Count 815H, Mean Platelet Volume 5.2L, Neutrophils (%) (Auto) , Lymphocytes (%) (Auto) , Monocytes (%) (Auto) , Eosinophils (%) (Auto) , Basophils (%) (Auto) , Neutrophils % (Manual) [Pending], Lymphocytes % (Manual) [Pending], Platelet Estimate [Pending], Platelet Morphology [Pending], Sodium Level 130L, Potassium Level 4.4, Chloride Level 94L, Carbon Dioxide Level 24, Anion Gap 12, Blood Urea Nitrogen 16, Creatinine 1.5H, Estimat Glomerular Filtration Rate 58.4, Glucose Level 95, Calcium Level 9.5, Total Bilirubin 20.2H , Direct Bilirubin 18.1H, Aspartate Amino Transf (AST/SGOT) 312H, Alanine Aminotransferase (ALT/SGPT) 313H, Alkaline Phosphatase > 2000H, Total Protein 6.3L, Albumin 2.1L, Globulin 4.2, Albumin/Globulin Ratio 0.5L Height (Feet): 5 Height (Inches): 11.00 Weight (Pounds): 151 Objective HEAD AND NECK: He has scar from the craniotomy. No LAD. Extraocular movement intact. Pupils are reactive to light and accommodation. LUNGS: Clear to auscultation. CARDIAC: Regular rate and rhythm. S1 and S2. No murmur. No rub. ABDOMEN: Soft, nontender, and nondistended. EXTREMITIES: No edema. No clubbing. No cyanosis. Marielena Romero MD May 18, 2018 09:08
--- NOTE | 2018-05-18 09:19 | NUR ---
CASINO SHIFT MANAGER Co-Signature: Reviewed patient's chart. Reviewed and approved CASINO SHIFT MANAGER notes Addendum: 05/18/18 at 0920 by RYNE ESTRELLA PT,MG Amended: Links added.
--- NOTE | 2018-05-18 09:20 | NUR ---
BOROUGH COORDINATOR Co-Signature: Reviewed patient's chart. Reviewed and approved BOROUGH COORDINATOR notes Addendum: 05/18/18 at 0920 by RYNE ESTRELLA PT,MG Amended: Links added.
[2018-05-18] MEDS: Lactulose 20gm/30ml UDC ORAL SCH ×3 (09:32→18:26)
[2018-05-18] MEDS: Heparin 5000 units/ml inj SUBQ SCH ×2 (09:35→20:38)
--- NOTE | 2018-05-18 10:17 | NUR ---
*-* INSURANCE *-* REVIEWS HAVE BEEN FAXED TO: YENIFER LAUGHLIN PLEASE FAX THE REVIEW/CLINICAL NO INTERNATIONAL ACCOUNT EXECUTIVE ASSIGNED AT THIS TIME P- [phone] F- [phone]
--- NOTE | 2018-05-18 10:46 | NUR ---
PATIENT C/O HEADACHE GAVE PAIN MEDICATION DENIES NO DIZZINESS .. CALL LIGHT INR EAF
--- NOTE | 2018-05-18 11:38 | GI Progress Note ---
Assessment/Plan Problems: (1) Weak ICD Codes: R53.1 - Weakness SNOMED: 31229972 (2) Malnutrition ICD Codes: E46 - Unspecified protein-calorie malnutrition SNOMED: 99010634 (3) Brain tumor ICD Codes: D49.6 - Neoplasm of unspecified behavior of brain SNOMED: 624676829 (4) Transaminitis ICD Codes: R74.0 - Nonspecific elevation of levels of transaminase and lactic acid dehydrogenase [LDH] SNOMED: 448321682, 040916713 (5) Anemia ICD Codes: D64.9 - Anemia, unspecified SNOMED: 200891393 (6) Intractable pain ICD Codes: R52 - Pain, unspecified SNOMED: 66382820 (7) Phenytoin toxicity ICD Codes: T42.0X1A - Poisoning by hydantoin derivatives, accidental ( unintentional), initial encounter SNOMED: 72182361 (8) Drug-induced hepatic toxicity ICD Codes: K71.6 - Toxic liver disease with hepatitis, not elsewhere classified ; T50.905A - Adverse effect of unspecified drugs, medicaments and biological substances, initial encounter SNOMED: 546197085 Status: unchanged Status Narrative Discussed with Dr. Kimball. Assessment/Plan Head CT reviewed lipase normal abdominal US reviewed, negative Hepatitis panel, negative MRCP reviewed, negative for common bile duct dilation. Possible cholecystitis. AMA, REHAN and SMA negative OB stool negative Keppra level normal Phenytoin toxicity >> DC Dilantin Liver biopsy, drug induced hepatitis. MELD score = 28, patient needs tertiary care for liver transplant. dc all medications LFTS almost leveling off >> cont monitoring Thorazine as needed monitor H&H, prn transfusions bowel regime lactulose + xifaxan follow labs The patient was seen and examined at bedside and all new and available data was reviewed in the patients chart. I agree with the above findings, impression and plan. (Patient seen earlier today. Signature stamp does not reflect patient encounter time.). - Barry Kimball MD Subjective Gastrointestinal/Abdominal: Reports: no symptoms Subjective occasional headache Objective Last 24 Hour Vital Signs Date Time Temp Pulse Resp B/P (MAP) Pulse Ox O2 Delivery O2 Flow Rate FiO2 05/18/18 04:00 99.1 90 19 113/71 (85) 99 05/18/18 00:00 98.0 90 17 107/67 (80) 96 05/17/18 21:00 Room Air Room Air 05/17/18 20:00 99.0 91 17 112/69 (83) 97 05/17/18 16:00 98.5 88 19 96/58 (71) 96 05/17/18 12:00 97.7 80 16 107/68 (81) 97 Intake and Output 05/17/18 05/18/18 19:00 07:00 Intake Total 2000 ml 600 ml Balance 2000 ml 600 ml Intake Oral 2000 ml 600 ml # Voids 3 3 Laboratory Tests Test 05/17/18 18:45 05/18/18 02:50 05/18/18 06:54 Urine Random Creatinine Pending Urine Random Microalbumin Pending Urine Random Total Protein 59 MG/DL (< 11.9) H Urine Creatinine 123.4 MG/DL (30.0-125.0) Urine Microalbumin/Creatinine Ratio Pending Urine Eosinophils Few seen (NONE SEEN) White Blood Count 11.3 K/UL (4.8-10.8) H Red Blood Count 2.64 M/UL (4.70-6.10) L Hemoglobin 8.4 G/DL (14.2-18.0) L Hematocrit 25.2 % (42.0-52.0) L Mean Corpuscular Volume 96 FL (80-99) Mean Corpuscular Hemoglobin 31.8 PG (27.0-31.0) H Mean Corpuscular Hemoglobin Concent 33.3 G/DL (32.0-36.0) Red Cell Distribution Width 14.9 % (11.6-14.8) H Platelet Count 815 K/UL (150-450) H Mean Platelet Volume 5.2 FL (6.5-10.1) L Neutrophils (%) (Auto) % (45.0-75.0) Lymphocytes (%) (Auto) % (20.0-45.0) Monocytes (%) (Auto) % (1.0-10.0) Eosinophils (%) (Auto) % (0.0-3.0) Basophils (%) (Auto) % (0.0-2.0) Differential Total Cells Counted 100 Neutrophils % (Manual) 38 % (45-75) L Lymphocytes % (Manual) 23 % (20-45) Monocytes % (Manual) 18 % (1-10) H Eosinophils % (Manual) 16 % (0-3) H Basophils % (Manual) 3 % (0-2) H Band Neutrophils 2 % (0-8) Platelet Estimate Increased H Platelet Morphology Normal Anisocytosis 1+ Target Cells 1+ Stomatocytes 1+ Sodium Level 130 MMOL/L (136-145) L Potassium Level 4.4 MMOL/L (3.5-5.1) Chloride Level 94 MMOL/L (98-107) L Carbon Dioxide Level 24 MMOL/L (21-32) Anion Gap 12 mmol/L (5-15) Blood Urea Nitrogen 16 mg/dL (7-18) Creatinine 1.5 MG/DL (0.55-1.30) H Estimat Glomerular Filtration Rate 58.4 mL/min (>60) Glucose Level 95 MG/DL (74-106) Calcium Level 9.5 MG/DL (8.5-10.1) Total Bilirubin 20.2 MG/DL (0.2-1.0) H Direct Bilirubin 18.1 MG/DL (0.0-0.3) H Aspartate Amino Transf (AST/SGOT) 312 U/L (15-37) H Alanine Aminotransferase (ALT/SGPT) 313 U/L (12-78) H Alkaline Phosphatase > 2000 U/L (46-116) H Total Protein 6.3 G/DL (6.4-8.2) L Albumin 2.1 G/DL (3.4-5.0) L Globulin 4.2 g/dL Albumin/Globulin Ratio 0.5 (1.0-2.7) L Height (Feet): 5 Height (Inches): 11.00 Weight (Pounds): 151 General Appearance: WD/WN, no apparent distress, alert, thin Cardiovascular: normal rate Respiratory/Chest: normal breath sounds, no respiratory distress Abdominal Exam: normal bowel sounds, non tender, soft Extremities: normal range of motion, non-tender Bhupendra Barriga NP May 18, 2018 11:38
[2018-05-18 12:00] VITALS: BP 118/77
--- NOTE | 2018-05-18 12:52 | NUR ---
PROCESS [employer] SI: TRANSAMINITIS . BRAIN TUMOR VS: BP 107/67, P 91, T 98.5, RR 17, SpO2 96 WBC 11.3, RBC 2.64, Hgb 8.4, Hct 25.2, Na 130, Total Bilirubin 20.32 AST 312, ALT 313 IS: GABAPENTIN 600mg OXYCODONE HCI 5mg LACTULOSE 10gm HEPARIN SUBQ MED/SURG STATUS
--- NOTE | 2018-05-18 13:53 | Infectious Diseases Prog Note ---
Assessment/Plan Assessment/Plan Assessment: Sepsis; improving- likely due to probable acute acalculous cholecystitis Fever , recurrent- probably due to drug induced hepatitis- now resovled ?PNA -CXR: Mildly increased interstitial markings. This is nonspecific and cannot exclude a mild bronchitis or interstitial pneumonitis. No focal consolidation. -wound cx craniotomy incision: MSSA (wound doesnt appaer infected) -bcx Neg -influenza sc neg Mild leukocytosis,recurrent; resolved Elevated LFTs, improving (probably due to both cholecystitis and toxic phenytoin levels); Elev alk and Leno )ALP >> AST, ALT); worsening- -05/05 SP Liver biopsy: verbal report drug induced. -HIDA scan: Poor hepatic tracer uptake, no biliary excretion. Findings most likely represents severe hepatocellular disease. Findings are nondiagnostic as regards cystic duct or common bile duct patency -MRCP:No definite gallstones. However, there is gallbladder wall edema and pericholecystic fluid. Could indicate acalculous acute cholecystitis or cholecystitis due to an occult calculus. Alternatively, this could represent reactive changes secondary to adjacent hepatocellular inflammation. Consider hepatobiliary nuclear scan if there is high clinical suspicion for acute cholecystitis. Negative for biliary ductal dilatation. Periportal edema. This can be seen acute hepatitis or right heart failure, among other possibilities -Abd US: No acute findings. 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 Please correlate with the surgical history. Some enhancement of the dura along the anterior interhemispheric fissure and within the surgical bed is not unexpected given the recent surgery. However, the possibility of residual neoplasm is not excludable. There are no reference studies to compare to the preoperative MRI available. Other notable postsurgical finding includes a small fluid collection within the surgical bed deep to the bifrontal craniotomy flap and mild edema within the frontal lobes -CT brain wo: Postsurgical changes associated with relatively recent bifrontal craniotomy likely resection of a mass in the area of the interhemispheric fissure. 6 mm thick mixed attenuation extra-axial blood noted within the surgical bed. Please correlate with the operative report and comparison with prior studies is strongly recommended. -ESR 42, CRP 16.2 -HIV ag/ab neg MICHELLE (supratherapuetic vanco levels) Recent Brain tumor removal (1 month ago) seizure disorder GERD Tobacco use Drug rash- likely 2ry to Phenytoin Plan: -Given drug induced liver damage on pathology - will do an antibiotic free period to evaluate if any of these are a potential culprit. -05/09 SP Meropenem #9, Micafungin #2 -/ SP IV Vancomycin #7 -/4 SP Cefepime #6 -Will hold on LP for now as an alternative source of sepsis is considered -Monitor CBC/CMP, temperatures -GI, Sx f/u: ; ?cholecystostomy -?Transfer to [address] [place] [address] with liver service (ie transplant service)- ALP and Tbili continues to worsened to toxic levels -Nuero fu: holding Phenytoin (toxic levels; also probable drug induced hypersensitize syndrome as had rash, eosinophilia and hepatoxicity) Discussed withRN Subjective Allergies: Coded Allergies: GADOBUTROL (Verified Allergy, Intermediate, 04/30/18) PHENYTOIN (Verified Allergy, Unknown, 05/03/18) Drug hypersensitivity syndrome; hepatotoxicity Uncoded Allergies: CONTRAST (Allergy, Mild, Rash, 05/03/18) questionable if it was due to contrast; patient at the time (Mar-April 2018) also had dilantin reaction (probably rash was due to dilantin) Subjective afebrile mild leukocytosis ALP and Tbili continues to worsen, now >2000 and 20, respectively AST and ALT worsening off abx awaiting transfer to [address] [place] [address] Objective Vital Signs Last 24 Hour Vital Signs Date Time Temp Pulse Resp B/P (MAP) Pulse Ox O2 Delivery O2 Flow Rate FiO2 05/18/18 09:00 Room Air Room Air 05/18/18 04:00 99.1 90 19 113/71 (85) 99 05/18/18 00:00 98.0 90 17 107/67 (80) 96 05/17/18 21:00 Room Air Room Air 05/17/18 20:00 99.0 91 17 112/69 (83) 97 05/17/18 16:00 98.5 88 19 96/58 (71) 96 Height (Feet): 5 Height (Inches): 11.00 Weight (Pounds): 151 Objective HEAD: craniotomy scar with some superficial ulceration on R left side- no signs of infection GENERAL: Anxious in bed, oriented x2, in no acute distress. CARDIOVASCULAR: No murmur. LUNGS: Distant and clear. ABDOMEN: Bowel sounds positive. Nontender. Nondistended. EXTREMITIES: No cyanosis, clubbing, or edema. NEUROLOGIC: The patient moves all extremities. Slight weakness in extremities. Skin: maculopapular rash in torso, arms Laboratory Tests Test 05/17/18 18:45 05/18/18 02:50 05/18/18 06:54 Urine Random Creatinine Pending Urine Random Microalbumin Pending Urine Random Total Protein 59 MG/DL (< 11.9) H Urine Creatinine 123.4 MG/DL (30.0-125.0) Urine Microalbumin/Creatinine Ratio Pending Urine Eosinophils Few seen (NONE SEEN) White Blood Count 11.3 K/UL (4.8-10.8) H Red Blood Count 2.64 M/UL (4.70-6.10) L Hemoglobin 8.4 G/DL (14.2-18.0) L Hematocrit 25.2 % (42.0-52.0) L Mean Corpuscular Volume 96 FL (80-99) Mean Corpuscular Hemoglobin 31.8 PG (27.0-31.0) H Mean Corpuscular Hemoglobin Concent 33.3 G/DL (32.0-36.0) Red Cell Distribution Width 14.9 % (11.6-14.8) H Platelet Count 815 K/UL (150-450) H Mean Platelet Volume 5.2 FL (6.5-10.1) L Neutrophils (%) (Auto) % (45.0-75.0) Lymphocytes (%) (Auto) % (20.0-45.0) Monocytes (%) (Auto) % (1.0-10.0) Eosinophils (%) (Auto) % (0.0-3.0) Basophils (%) (Auto) % (0.0-2.0) Differential Total Cells Counted 100 Neutrophils % (Manual) 38 % (45-75) L Lymphocytes % (Manual) 23 % (20-45) Monocytes % (Manual) 18 % (1-10) H Eosinophils % (Manual) 16 % (0-3) H Basophils % (Manual) 3 % (0-2) H Band Neutrophils 2 % (0-8) Platelet Estimate Increased H Platelet Morphology Normal Anisocytosis 1+ Target Cells 1+ Stomatocytes 1+ Sodium Level 130 MMOL/L (136-145) L Potassium Level 4.4 MMOL/L (3.5-5.1) Chloride Level 94 MMOL/L (98-107) L Carbon Dioxide Level 24 MMOL/L (21-32) Anion Gap 12 mmol/L (5-15) Blood Urea Nitrogen 16 mg/dL (7-18) Creatinine 1.5 MG/DL (0.55-1.30) H Estimat Glomerular Filtration Rate 58.4 mL/min (>60) Glucose Level 95 MG/DL (74-106) Calcium Level 9.5 MG/DL (8.5-10.1) Total Bilirubin 20.2 MG/DL (0.2-1.0) H Direct Bilirubin 18.1 MG/DL (0.0-0.3) H Aspartate Amino Transf (AST/SGOT) 312 U/L (15-37) H Alanine Aminotransferase (ALT/SGPT) 313 U/L (12-78) H Alkaline Phosphatase > 2000 U/L (46-116) H Total Protein 6.3 G/DL (6.4-8.2) L Albumin 2.1 G/DL (3.4-5.0) L Globulin 4.2 g/dL Albumin/Globulin Ratio 0.5 (1.0-2.7) L Current Medications Medications (Trade) Dose Ordered Sig/Obdulia Route PRN Reason Start Time Stop Time Status Last Admin Dose Admin Al Hydroxide/Mg Hydroxide (Mylanta II) 30 ml Q6H PRN ORAL dyspepsia 04/24/18 17:15 05/24/18 17:14 Cetylpyridinium Chloride (Cepacol) 1 lozg Q2H PRN JORGE LUIS Discomfort from hiccups 05/09/18 15:45 06/08/18 15:44 05/11/18 09:13 Dextrose (Dextrose 50%) 25 ml Q30M PRN IV Hypoglycemia 04/24/18 17:15 05/24/18 17:14 Dextrose (Dextrose 50%) 50 ml Q30M PRN IV Hypoglycemia 04/24/18 17:15 05/24/18 17:14 Diphenhydramine HCl (Benadryl) 25 mg Q6H PRN IVP Itching 04/26/18 16:30 05/26/18 16:29 05/02/18 23:53 Gabapentin (Neurontin) 600 mg THREE TIMES A DAY ORAL 05/14/18 18:00 06/13/18 17:59 05/18/18 09:32 Heparin Sodium (Porcine) (Heparin 5000 units/ml) 5,000 units EVERY 12 HOURS SUBQ 04/24/18 21:00 05/24/18 20:59 05/18/18 09:35 Lactulose (Cephulac) 30 gm THREE TIMES A DAY ORAL 05/17/18 13:00 05/29/18 13:29 05/18/18 09:32 Ondansetron HCl (Zofran) 4 mg Q6H PRN IVP Nausea & Vomiting 04/24/18 17:15 05/24/18 17:14 05/10/18 12:29 Oxycodone HCl (Roxicodone) 5 mg Q4H PRN ORAL severe pain 05/14/18 11:16 05/21/18 14:14 05/18/18 10:41 Polyethylene Glycol (Miralax) 17 gm HSPRN PRN ORAL Constipation 04/24/18 17:15 05/24/18 17:14 Kelsie Ibarra M.D. May 18, 2018 13:53
--- NOTE | 2018-05-18 14:07 | Surgery Progress Note ---
Surgery Progress Note Subjective Additional Comments spoke with family at bedside and patient. he is comfortable but concerned about plans. family states that if not transferred to liver center by Tuesday they plan to leave Objective Last 24 Hour Vital Signs Date Time Temp Pulse Resp B/P (MAP) Pulse Ox O2 Delivery O2 Flow Rate FiO2 05/18/18 09:00 Room Air Room Air 05/18/18 04:00 99.1 90 19 113/71 (85) 99 05/18/18 00:00 98.0 90 17 107/67 (80) 96 05/17/18 21:00 Room Air Room Air 05/17/18 20:00 99.0 91 17 112/69 (83) 97 05/17/18 16:00 98.5 88 19 96/58 (71) 96 I&O Intake and Output 05/17/18 05/18/18 18:59 06:59 Intake Total 2000 ml 600 ml Balance 2000 ml 600 ml Intake Oral 2000 ml 600 ml # Voids 3 3 Laboratory Tests Test 05/17/18 18:45 05/18/18 02:50 05/18/18 06:54 Urine Random Creatinine Pending Urine Random Microalbumin Pending Urine Random Total Protein 59 MG/DL (< 11.9) H Urine Creatinine 123.4 MG/DL (30.0-125.0) Urine Microalbumin/Creatinine Ratio Pending Urine Eosinophils Few seen (NONE SEEN) White Blood Count 11.3 K/UL (4.8-10.8) H Red Blood Count 2.64 M/UL (4.70-6.10) L Hemoglobin 8.4 G/DL (14.2-18.0) L Hematocrit 25.2 % (42.0-52.0) L Mean Corpuscular Volume 96 FL (80-99) Mean Corpuscular Hemoglobin 31.8 PG (27.0-31.0) H Mean Corpuscular Hemoglobin Concent 33.3 G/DL (32.0-36.0) Red Cell Distribution Width 14.9 % (11.6-14.8) H Platelet Count 815 K/UL (150-450) H Mean Platelet Volume 5.2 FL (6.5-10.1) L Neutrophils (%) (Auto) % (45.0-75.0) Lymphocytes (%) (Auto) % (20.0-45.0) Monocytes (%) (Auto) % (1.0-10.0) Eosinophils (%) (Auto) % (0.0-3.0) Basophils (%) (Auto) % (0.0-2.0) Differential Total Cells Counted 100 Neutrophils % (Manual) 38 % (45-75) L Lymphocytes % (Manual) 23 % (20-45) Monocytes % (Manual) 18 % (1-10) H Eosinophils % (Manual) 16 % (0-3) H Basophils % (Manual) 3 % (0-2) H Band Neutrophils 2 % (0-8) Platelet Estimate Increased H Platelet Morphology Normal Anisocytosis 1+ Target Cells 1+ Stomatocytes 1+ Sodium Level 130 MMOL/L (136-145) L Potassium Level 4.4 MMOL/L (3.5-5.1) Chloride Level 94 MMOL/L (98-107) L Carbon Dioxide Level 24 MMOL/L (21-32) Anion Gap 12 mmol/L (5-15) Blood Urea Nitrogen 16 mg/dL (7-18) Creatinine 1.5 MG/DL (0.55-1.30) H Estimat Glomerular Filtration Rate 58.4 mL/min (>60) Glucose Level 95 MG/DL (74-106) Calcium Level 9.5 MG/DL (8.5-10.1) Total Bilirubin 20.2 MG/DL (0.2-1.0) H Direct Bilirubin 18.1 MG/DL (0.0-0.3) H Aspartate Amino Transf (AST/SGOT) 312 U/L (15-37) H Alanine Aminotransferase (ALT/SGPT) 313 U/L (12-78) H Alkaline Phosphatase > 2000 U/L (46-116) H Total Protein 6.3 G/DL (6.4-8.2) L Albumin 2.1 G/DL (3.4-5.0) L Globulin 4.2 g/dL Albumin/Globulin Ratio 0.5 (1.0-2.7) L Plan Problems: (1) Transaminitis Assessment & Plan: reviewed chart discussed with GI likely due to drug toxicity. Her biopsy resulted and noted. Likely drug induced toxicity as no infectious or other process noted macro micro changes noted Rx reviewed and seems that most of his hepatotoxic medications have been DC'd. hep panel negative labs worsening Agree with GI labs worsening MELD noted. given no improvement, acute liver toxicity, will need transfer to liver transplant center - team working on transfer but no center provided yet (2) Elevated alkaline phosphatase level (3) Intractable pain Assessment & Plan: US noted - The liver is unremarkable. The gallbladder is unremarkable. The demonstrated part of the pancreas, aorta and IVC show no abnormalities. Both kidneys appear unremarkable. The spleen is normal in size. There is no biliary ductal dilatation identified. Doppler evaluation of the main portal vein shows patency. There is no ascites. No hydronephrosis seen. CBD is 3 mm. MRI noted - No definite gallstones. However, there is gallbladder wall edema and pericholecystic fluid. Could indicate acalculous acute cholecystitis or cholecystitis due to an occult calculus. Alternatively, this could represent reactive changes secondary to adjacent hepatocellular inflammation. Consider hepatobiliary nuclear scan if there is high clinical suspicion for acute cholecystitis. Negative for biliary ductal dilatation. HIDA noted - Poor hepatic tracer uptake, no biliary excretion. Findings most likely represents severe hepatocellular disease. Findings are nondiagnostic as regards cystic duct or common bile duct patency Liver biopsy with drug induced hepat changes possible acute acalculous cholecystitis. exam difficult given history labs with resolved leukocytosis lft's abnormal from drug toxicity - levels still elevated. trend labs okay for diet will follow clinically (4) Sepsis Jamin Lynch May 18, 2018 14:07
--- NOTE | 2018-05-18 14:45 | General Progress Note ---
Assessment/Plan Problem List: (1) Head ache ICD Codes: R51 - Headache SNOMED: 57277198 (2) Weak ICD Codes: R53.1 - Weakness SNOMED: 11880792 (3) HTN (hypertension) ICD Codes: I10 - Essential (primary) hypertension SNOMED: 23868130 (4) Malnutrition ICD Codes: E46 - Unspecified protein-calorie malnutrition SNOMED: 24372458 (5) Epilepsy ICD Codes: G40.909 - Epilepsy, unspecified, not intractable, without status epilepticus SNOMED: 63996759 (6) Intractable pain ICD Codes: R52 - Pain, unspecified SNOMED: 27966259 (7) Phenytoin toxicity ICD Codes: T42.0X1A - Poisoning by hydantoin derivatives, accidental ( unintentional), initial encounter SNOMED: 12036322 Status: unchanged Assessment/Plan pt diet pain control neuro gi psyc eval abx prn cbc bmp am transfer to higher level facility Subjective Constitutional: Reports: weakness Allergies: Coded Allergies: GADOBUTROL (Verified Allergy, Intermediate, 04/30/18) PHENYTOIN (Verified Allergy, Unknown, 05/03/18) Drug hypersensitivity syndrome; hepatotoxicity Uncoded Allergies: CONTRAST (Allergy, Mild, Rash, 05/03/18) questionable if it was due to contrast; patient at the time (Mar-April 2018) also had dilantin reaction (probably rash was due to dilantin) All Systems: reviewed and negative except above Subjective sleepy calm Objective Last 24 Hour Vital Signs Date Time Temp Pulse Resp B/P (MAP) Pulse Ox O2 Delivery O2 Flow Rate FiO2 05/18/18 09:00 Room Air Room Air 05/18/18 04:00 99.1 90 19 113/71 (85) 99 05/18/18 00:00 98.0 90 17 107/67 (80) 96 05/17/18 21:00 Room Air Room Air 05/17/18 20:00 99.0 91 17 112/69 (83) 97 05/17/18 16:00 98.5 88 19 96/58 (71) 96 Intake and Output 05/17/18 05/18/18 18:59 06:59 Intake Total 2000 ml 600 ml Balance 2000 ml 600 ml Intake Oral 2000 ml 600 ml # Voids 3 3 Laboratory Tests 05/17/18 18:45: Urine Random Creatinine [Pending], Urine Random Microalbumin [Pending], Urine Random Total Protein 59H, Urine Creatinine 123.4, Urine Microalbumin/Creatinine Ratio [Pending] 05/18/18 02:50: Urine Eosinophils Few seen 05/18/18 06:54: White Blood Count 11.3H, Red Blood Count 2.64L, Hemoglobin 8.4L, Hematocrit 25.2L, Mean Corpuscular Volume 96, Mean Corpuscular Hemoglobin 31.8H, Mean Corpuscular Hemoglobin Concent 33.3, Red Cell Distribution Width 14.9H, Platelet Count 815H, Mean Platelet Volume 5.2L, Neutrophils (%) (Auto) , Lymphocytes (%) (Auto) , Monocytes (%) (Auto) , Eosinophils (%) (Auto) , Basophils (%) (Auto) , Differential Total Cells Counted 100, Neutrophils % ( Manual) 38L, Lymphocytes % (Manual) 23, Monocytes % (Manual) 18H, Eosinophils % (Manual) 16H, Basophils % (Manual) 3H, Band Neutrophils 2, Platelet Estimate IncreasedH, Platelet Morphology Normal, Anisocytosis 1+, Target Cells 1+, Stomatocytes 1+, Sodium Level 130L, Potassium Level 4.4, Chloride Level 94L, Carbon Dioxide Level 24, Anion Gap 12, Blood Urea Nitrogen 16, Creatinine 1.5H, Estimat Glomerular Filtration Rate 58.4, Glucose Level 95, Calcium Level 9.5, Total Bilirubin 20.2H, Direct Bilirubin 18.1H, Aspartate Amino Transf (AST/SGOT ) 312H, Alanine Aminotransferase (ALT/SGPT) 313H, Alkaline Phosphatase > 2000H, Total Protein 6.3L, Albumin 2.1L, Globulin 4.2, Albumin/Globulin Ratio 0.5L Height (Feet): 5 Height (Inches): 11.00 Weight (Pounds): 151 General Appearance: lethargic EENT: normal ENT inspection Neck: normal alignment Cardiovascular: normal peripheral pulses, normal rate, regular rhythm Respiratory/Chest: chest wall non-tender, lungs clear, normal breath sounds Abdomen: normal bowel sounds, non tender, soft Extremities: normal inspection Edema: no edema noted Arm (L), no edema noted Arm (R), no edema noted Leg (L), no edema noted Leg (R), no edema noted Pedal (L), no edema noted Pedal (R), no edema noted Generalized Neurologic: motor weakness Skin: normal pigmentation, warm/dry Neri Cat DO May 18, 2018 14:45
[2018-05-18 16:00] VITALS: BP 112/69
--- NOTE | 2018-05-18 17:47 | NUR ---
PHYSICAL THERAPY AMBULATED PATIENT DOWN THE HALLWAY GAIT IS UNSTEADY, PATIENT BUCKLE X 2 WITH PT NOTED
--- NOTE | 2018-05-18 20:00 | NUR ---
NURSE NOTES: Received patient awake,verbal,follows command,resting in bed,sister at bedside.
[2018-05-18 20:13] VITALS: BP 107/72
[2018-05-19] VITALS: BP 108/75
[2018-05-19 04:00] VITALS: BP 109/69
--- NOTE | 2018-05-19 07:25 | NUR ---
HAND-OFF: Report given to Valeria Chance LVN.
[2018-05-19 07:30] LABS: HEMATOCRIT 26.3 % (42.0-52.0); HEMOGLOBIN 8.6 G/DL (14.2-18.0); MEAN CORPUSCULAR VOLUME 96 FL (80-99); PLATELET COUNT 830 K/UL (150-450); RED BLOOD COUNT 2.74 M/UL (4.70-6.10); RED CELL DISTRIBUTION WIDTH 16.1 % (11.6-14.8); WHITE BLOOD COUNT 11.4 K/UL (4.8-10.8)
[2018-05-19 07:53] LABS: ALANINE AMINOTRANSFERASE 326 U/L (12-78); ALBUMIN 2.1 G/DL (3.4-5.0); ALBUMIN/GLOBULIN RATIO 0.5 (1.0-2.7); ALKALINE PHOSPHATASE > 2000 U/L (46-116); ANION GAP 10 mmol/L (5-15); ASPARTATE AMINO TRANSFERASE 298 U/L (15-37); BILIRUBIN,TOTAL 20.2 MG/DL (0.2-1.0); BLOOD UREA NITROGEN 12 mg/dL (7-18); CALCIUM 9.4 MG/DL (8.5-10.1); CARBON DIOXIDE 23 MMOL/L (21-32); CHLORIDE 97 MMOL/L (98-107); CREATININE 1.5 MG/DL (0.55-1.30); POTASSIUM 4.3 MMOL/L (3.5-5.1); SODIUM 130 MMOL/L (136-145)
[2018-05-19 07:56] LABS: BILIRUBIN,DIRECT 18.7 MG/DL (0.0-0.3)
[2018-05-19 08:00] VITALS: BP 110/62
[2018-05-19] MEDS: oxyCODONE 5mg IR tab ORAL PRN ×2 (09:00→13:00)
[2018-05-19] MEDS: Lactulose 20gm/30ml UDC ORAL SCH ×3 (09:00→17:47)
[2018-05-19] MEDS: Heparin 5000 units/ml inj SUBQ SCH (09:03)
--- NOTE | 2018-05-19 09:10 | General Progress Note ---
Assessment/Plan Assessment/Plan (1) Headache (2) Brain neoplasm s/p craniotomy and resection Patient to be continued on Neurontin and Oxycodone. D/w Dr. Delarosa and he concurred. Subjective Date patient seen: May 19, 2018 Time patient seen: 08:00 - am Allergies: Coded Allergies: GADOBUTROL (Verified Allergy, Intermediate, 04/30/18) PHENYTOIN (Verified Allergy, Unknown, 05/03/18) Drug hypersensitivity syndrome; hepatotoxicity Uncoded Allergies: CONTRAST (Allergy, Mild, Rash, 05/03/18) questionable if it was due to contrast; patient at the time (April 2018) also had dilantin reaction (probably rash was due to dilantin) Subjective REVIEW OF SYSTEMS: Denies rash, fever, chills, sweating, dizziness, drowsiness, blurred vision, sore throat, or change in his weight. No shortness of breath, chest pain, palpitations, or cough. No nausea, vomiting, diarrhea, or blood in stool or urine. SUBJECTIVE: Patient is in bed and shows no signs of pain or distress at this time. His pain has been tolerated on the Oxycodone. Objective Last 24 Hour Vital Signs Date Time Temp Pulse Resp B/P (MAP) Pulse Ox O2 Delivery O2 Flow Rate FiO2 05/19/18 04:00 98.5 88 18 109/69 (82) 100 05/19/18 00:00 97.9 85 18 108/75 (86) 100 05/18/18 21:27 Room Air Room Air 05/18/18 20:13 98.7 88 18 107/72 (84) 99 05/18/18 16:00 98.2 85 17 112/69 (83) 97 05/18/18 12:00 97.2 81 20 118/77 (91) 96 Intake and Output 05/18/18 05/19/18 19:00 07:00 Intake Total 1900 ml 200 ml Balance 1900 ml 200 ml Intake Oral 1900 ml 200 ml # Voids 4 3 # Bowel Movements 3 1 Laboratory Tests 05/19/18 05:35: White Blood Count 11.4H, Red Blood Count 2.74L, Hemoglobin 8.6L, Hematocrit 26.3L, Mean Corpuscular Volume 96, Mean Corpuscular Hemoglobin 31.3H, Mean Corpuscular Hemoglobin Concent 32.6, Red Cell Distribution Width 16.1H, Platelet Count 830H, Mean Platelet Volume 5.4L, Neutrophils (%) (Auto) , Lymphocytes (%) (Auto) , Monocytes (%) (Auto) , Eosinophils (%) (Auto) , Basophils (%) (Auto) , Neutrophils % (Manual) [Pending], Lymphocytes % (Manual) [Pending], Platelet Estimate [Pending], Platelet Morphology [Pending], Sodium Level 130L, Potassium Level 4.3, Chloride Level 97L, Carbon Dioxide Level 23, Anion Gap 10, Blood Urea Nitrogen 12, Creatinine 1.5H, Estimat Glomerular Filtration Rate 58.4, Glucose Level 95, Calcium Level 9.4, Total Bilirubin 20.2H , Direct Bilirubin 18.7H, Aspartate Amino Transf (AST/SGOT) 298H, Alanine Aminotransferase (ALT/SGPT) 326H, Alkaline Phosphatase > 2000H, Total Protein 6.3L, Albumin 2.1L, Globulin 4.2, Albumin/Globulin Ratio 0.5L Height (Feet): 5 Height (Inches): 11.00 Weight (Pounds): 151 Objective GENERAL: Alert, awake, and oriented. LUNGS: Clear bilaterally. HEART: S1 and S2, regular. ABDOMEN: Soft and nontender. EXTREMITIES: No cyanosis. No clubbing. No edema. NEURO: No changes. Albert Hoyos May 19, 2018 09:10
--- NOTE | 2018-05-19 10:09 | NUR ---
[employer] SI: [facility] . BRAIN TUMOR VS: BP 107/72, P 85, T 97.8, RR 18, SpO2 99 WBC 11.4, RBC 2.74, Hgb 8.6, Hct 26.3, Na 133, Total Bilirubin 20.2, AST 298, ALT 326 IS: GABAPENTIN 600mg OXYCODONE HCI 5mg LACTULOSE 10gm HEPARIN SUBQ MED/SURG STATUS
[2018-05-19 12:00] VITALS: BP 112/70
--- NOTE | 2018-05-19 12:37 | General Progress Note ---
Assessment/Plan Problem List: (1) History of craniotomy ICD Codes: Z98.890 - Other specified postprocedural states SNOMED: 64690088, 321638122 (2) Intractable pain ICD Codes: R52 - Pain, unspecified SNOMED: 60104109 (3) HTN (hypertension) ICD Codes: I10 - Essential (primary) hypertension SNOMED: 92643781 (4) Brain tumor ICD Codes: D49.6 - Neoplasm of unspecified behavior of brain SNOMED: 329215664 (5) Elevated alkaline phosphatase level ICD Codes: R74.8 - Abnormal levels of other serum enzymes SNOMED: 960157917 (6) Transaminitis ICD Codes: R74.0 - Nonspecific elevation of levels of transaminase and lactic acid dehydrogenase [LDH] SNOMED: 636514000, 564454225 (7) Anemia ICD Codes: D64.9 - Anemia, unspecified SNOMED: 517768108 Assessment/Plan Head CT reviewed lipase normal abdominal US reviewed, negative Hepatitis panel, negative MRCP reviewed, negative for common bile duct dilation. Possible cholecystitis. AMA, RHEAN and SMA negative OB stool negative Keppra level normal Phenytoin toxicity >> DC Dilantin Liver biopsy, drug induced hepatitis. MELD score = 28, patient needs tertiary care for liver transplant. dc all medications LFTS almost leveling off >> cont monitoring Thorazine as needed monitor H&H, prn transfusions bowel regime lactulose + xifaxan follow lab Subjective ROS Limited/Unobtainable: Yes Allergies: Coded Allergies: GADOBUTROL (Verified Allergy, Intermediate, 04/30/18) PHENYTOIN (Verified Allergy, Unknown, 05/03/18) Drug hypersensitivity syndrome; hepatotoxicity Uncoded Allergies: CONTRAST (Allergy, Mild, Rash, 05/03/18) questionable if it was due to contrast; patient at the time (Mar-April 2018) also had dilantin reaction (probably rash was due to dilantin) Objective Last 24 Hour Vital Signs Date Time Temp Pulse Resp B/P (MAP) Pulse Ox O2 Delivery O2 Flow Rate FiO2 05/19/18 12:00 97.6 90 17 112/70 (84) 98 05/19/18 09:00 Room Air Room Air 05/19/18 08:00 97.8 100 110/62 (78) 05/19/18 04:00 98.5 88 18 109/69 (82) 100 05/19/18 00:00 97.9 85 18 108/75 (86) 100 05/18/18 21:27 Room Air Room Air 05/18/18 20:13 98.7 88 18 107/72 (84) 99 05/18/18 16:00 98.2 85 17 112/69 (83) 97 Intake and Output 05/18/18 05/19/18 19:00 07:00 Intake Total 1900 ml 200 ml Balance 1900 ml 200 ml Intake Oral 1900 ml 200 ml # Voids 4 3 # Bowel Movements 3 1 Laboratory Tests 05/19/18 05:35: White Blood Count 11.4H, Red Blood Count 2.74L, Hemoglobin 8.6L, Hematocrit 26.3L, Mean Corpuscular Volume 96, Mean Corpuscular Hemoglobin 31.3H, Mean Corpuscular Hemoglobin Concent 32.6, Red Cell Distribution Width 16.1H, Platelet Count 830H, Mean Platelet Volume 5.4L, Neutrophils (%) (Auto) , Lymphocytes (%) (Auto) , Monocytes (%) (Auto) , Eosinophils (%) (Auto) , Basophils (%) (Auto) , Neutrophils % (Manual) [Pending], Lymphocytes % (Manual) [Pending], Platelet Estimate [Pending], Platelet Morphology [Pending], Sodium Level 130L, Potassium Level 4.3, Chloride Level 97L, Carbon Dioxide Level 23, Anion Gap 10, Blood Urea Nitrogen 12, Creatinine 1.5H, Estimat Glomerular Filtration Rate 58.4, Glucose Level 95, Calcium Level 9.4, Total Bilirubin 20.2H , Direct Bilirubin 18.7H, Aspartate Amino Transf (AST/SGOT) 298H, Alanine Aminotransferase (ALT/SGPT) 326H, Alkaline Phosphatase > 2000H, Total Protein 6.3L, Albumin 2.1L, Globulin 4.2, Albumin/Globulin Ratio 0.5L Height (Feet): 5 Height (Inches): 11.00 Weight (Pounds): 151 General Appearance: alert EENT: scleral icterus Neck: non-tender, normal alignment, supple Respiratory/Chest: lungs clear Abdomen: normal bowel sounds, non tender, soft Barry Kimball MD May 19, 2018 12:37
--- NOTE | 2018-05-19 13:34 | General Progress Note ---
Assessment/Plan Problem List: (1) Head ache ICD Codes: R51 - Headache SNOMED: 45648887 (2) Weak ICD Codes: R53.1 - Weakness SNOMED: 56290321 (3) HTN (hypertension) ICD Codes: I10 - Essential (primary) hypertension SNOMED: 16980939 (4) Malnutrition ICD Codes: E46 - Unspecified protein-calorie malnutrition SNOMED: 13716712 (5) Epilepsy ICD Codes: G40.909 - Epilepsy, unspecified, not intractable, without status epilepticus SNOMED: 15538150 (6) Intractable pain ICD Codes: R52 - Pain, unspecified SNOMED: 07458551 (7) Phenytoin toxicity ICD Codes: T42.0X1A - Poisoning by hydantoin derivatives, accidental ( unintentional), initial encounter SNOMED: 37355968 Status: unchanged Assessment/Plan pt diet pain control neuro gi psyc eval abx prn cbc bmp am transfer to higher level facility Subjective Constitutional: Reports: weakness Allergies: Coded Allergies: GADOBUTROL (Verified Allergy, Intermediate, 04/30/18) PHENYTOIN (Verified Allergy, Unknown, 05/03/18) Drug hypersensitivity syndrome; hepatotoxicity Uncoded Allergies: CONTRAST (Allergy, Mild, Rash, 05/03/18) questionable if it was due to contrast; patient at the time (Mar-April 2018) also had dilantin reaction (probably rash was due to dilantin) All Systems: reviewed and negative except above Subjective sleepy calm Objective Last 24 Hour Vital Signs Date Time Temp Pulse Resp B/P (MAP) Pulse Ox O2 Delivery O2 Flow Rate FiO2 05/19/18 12:00 97.6 90 17 112/70 (84) 98 05/19/18 09:00 Room Air Room Air 05/19/18 08:00 97.8 100 110/62 (78) 05/19/18 04:00 98.5 88 18 109/69 (82) 100 05/19/18 00:00 97.9 85 18 108/75 (86) 100 05/18/18 21:27 Room Air Room Air 05/18/18 20:13 98.7 88 18 107/72 (84) 99 05/18/18 16:00 98.2 85 17 112/69 (83) 97 Intake and Output 05/18/18 05/19/18 19:00 07:00 Intake Total 1900 ml 200 ml Balance 1900 ml 200 ml Intake Oral 1900 ml 200 ml # Voids 4 3 # Bowel Movements 3 1 Laboratory Tests 05/19/18 05:35: White Blood Count 11.4H, Red Blood Count 2.74L, Hemoglobin 8.6L, Hematocrit 26.3L, Mean Corpuscular Volume 96, Mean Corpuscular Hemoglobin 31.3H, Mean Corpuscular Hemoglobin Concent 32.6, Red Cell Distribution Width 16.1H, Platelet Count 830H, Mean Platelet Volume 5.4L, Neutrophils (%) (Auto) , Lymphocytes (%) (Auto) , Monocytes (%) (Auto) , Eosinophils (%) (Auto) , Basophils (%) (Auto) , Differential Total Cells Counted 100, Neutrophils % ( Manual) 55, Lymphocytes % (Manual) 17L, Monocytes % (Manual) 13H, Eosinophils % (Manual) 12H, Basophils % (Manual) 3H, Band Neutrophils 0, Platelet Estimate IncreasedH, Platelet Morphology Normal, Hypochromasia 2+, Anisocytosis 1+, Sodium Level 130L, Potassium Level 4.3, Chloride Level 97L, Carbon Dioxide Level 23, Anion Gap 10, Blood Urea Nitrogen 12, Creatinine 1.5H, Estimat Glomerular Filtration Rate 58.4, Glucose Level 95, Calcium Level 9.4, Total Bilirubin 20.2H, Direct Bilirubin 18.7H, Aspartate Amino Transf (AST/SGOT) 298H , Alanine Aminotransferase (ALT/SGPT) 326H, Alkaline Phosphatase > 2000H, Total Protein 6.3L, Albumin 2.1L, Globulin 4.2, Albumin/Globulin Ratio 0.5L Height (Feet): 5 Height (Inches): 11.00 Weight (Pounds): 151 General Appearance: lethargic EENT: normal ENT inspection Neck: normal alignment Cardiovascular: normal peripheral pulses, normal rate, regular rhythm Respiratory/Chest: chest wall non-tender, lungs clear, normal breath sounds Abdomen: normal bowel sounds, non tender, soft Extremities: normal inspection Edema: no edema noted Arm (L), no edema noted Arm (R), no edema noted Leg (L), no edema noted Leg (R), no edema noted Pedal (L), no edema noted Pedal (R), no edema noted Generalized Neurologic: motor weakness Skin: normal pigmentation, warm/dry CatNeri Chi-Jailene DO May 19, 2018 13:34
--- NOTE | 2018-05-19 15:14 | Surgery Progress Note ---
Surgery Progress Note Subjective Additional Comments patiently awaiting transfer to liver center. labs noted Objective Last 24 Hour Vital Signs Date Time Temp Pulse Resp B/P (MAP) Pulse Ox O2 Delivery O2 Flow Rate FiO2 05/19/18 12:00 97.6 90 17 112/70 (84) 98 05/19/18 09:00 Room Air Room Air 05/19/18 08:00 97.8 100 110/62 (78) 05/19/18 04:00 98.5 88 18 109/69 (82) 100 05/19/18 00:00 97.9 85 18 108/75 (86) 100 05/18/18 21:27 Room Air Room Air 05/18/18 20:13 98.7 88 18 107/72 (84) 99 05/18/18 16:00 98.2 85 17 112/69 (83) 97 I&O Intake and Output 05/18/18 05/19/18 19:00 07:00 Intake Total 1900 ml 200 ml Balance 1900 ml 200 ml Intake Oral 1900 ml 200 ml # Voids 4 3 # Bowel Movements 3 1 Laboratory Tests Test 05/19/18 05:35 White Blood Count 11.4 K/UL (4.8-10.8) H Red Blood Count 2.74 M/UL (4.70-6.10) L Hemoglobin 8.6 G/DL (14.2-18.0) L Hematocrit 26.3 % (42.0-52.0) L Mean Corpuscular Volume 96 FL (80-99) Mean Corpuscular Hemoglobin 31.3 PG (27.0-31.0) H Mean Corpuscular Hemoglobin Concent 32.6 G/DL (32.0-36.0) Red Cell Distribution Width 16.1 % (11.6-14.8) H Platelet Count 830 K/UL (150-450) H Mean Platelet Volume 5.4 FL (6.5-10.1) L Neutrophils (%) (Auto) % (45.0-75.0) Lymphocytes (%) (Auto) % (20.0-45.0) Monocytes (%) (Auto) % (1.0-10.0) Eosinophils (%) (Auto) % (0.0-3.0) Basophils (%) (Auto) % (0.0-2.0) Differential Total Cells Counted 100 Neutrophils % (Manual) 55 % (45-75) Lymphocytes % (Manual) 17 % (20-45) L Monocytes % (Manual) 13 % (1-10) H Eosinophils % (Manual) 12 % (0-3) H Basophils % (Manual) 3 % (0-2) H Band Neutrophils 0 % (0-8) Platelet Estimate Increased H Platelet Morphology Normal Hypochromasia 2+ Anisocytosis 1+ Sodium Level 130 MMOL/L (136-145) L Potassium Level 4.3 MMOL/L (3.5-5.1) Chloride Level 97 MMOL/L (98-107) L Carbon Dioxide Level 23 MMOL/L (21-32) Anion Gap 10 mmol/L (5-15) Blood Urea Nitrogen 12 mg/dL (7-18) Creatinine 1.5 MG/DL (0.55-1.30) H Estimat Glomerular Filtration Rate 58.4 mL/min (>60) Glucose Level 95 MG/DL (74-106) Calcium Level 9.4 MG/DL (8.5-10.1) Total Bilirubin 20.2 MG/DL (0.2-1.0) H Direct Bilirubin 18.7 MG/DL (0.0-0.3) H Aspartate Amino Transf (AST/SGOT) 298 U/L (15-37) H Alanine Aminotransferase (ALT/SGPT) 326 U/L (12-78) H Alkaline Phosphatase > 2000 U/L (46-116) H Total Protein 6.3 G/DL (6.4-8.2) L Albumin 2.1 G/DL (3.4-5.0) L Globulin 4.2 g/dL Albumin/Globulin Ratio 0.5 (1.0-2.7) L Plan Problems: (1) Transaminitis Assessment & Plan: reviewed chart discussed with GI likely due to drug toxicity. Her biopsy resulted and noted. Likely drug induced toxicity as no infectious or other process noted macro micro changes noted Rx reviewed and seems that most of his hepatotoxic medications have been DC'd. hep panel negative labs worsening Agree with GI labs worsening MELD noted. given no improvement, acute liver toxicity, will need transfer to liver transplant center - team working on transfer but no center provided yet family states that if not transferred to liver center by Tuesday they plan to leave (2) Elevated alkaline phosphatase level (3) Intractable pain Assessment & Plan: US noted - The liver is unremarkable. The gallbladder is unremarkable. The demonstrated part of the pancreas, aorta and IVC show no abnormalities. Both kidneys appear unremarkable. The spleen is normal in size. There is no biliary ductal dilatation identified. Doppler evaluation of the main portal vein shows patency. There is no ascites. No hydronephrosis seen. CBD is 3 mm. MRI noted - No definite gallstones. However, there is gallbladder wall edema and pericholecystic fluid. Could indicate acalculous acute cholecystitis or cholecystitis due to an occult calculus. Alternatively, this could represent reactive changes secondary to adjacent hepatocellular inflammation. Consider hepatobiliary nuclear scan if there is high clinical suspicion for acute cholecystitis. Negative for biliary ductal dilatation. HIDA noted - Poor hepatic tracer uptake, no biliary excretion. Findings most likely represents severe hepatocellular disease. Findings are nondiagnostic as regards cystic duct or common bile duct patency Liver biopsy with drug induced hepat changes possible acute acalculous cholecystitis. exam difficult given history labs with resolved leukocytosis lft's abnormal from drug toxicity - levels still elevated. trend labs okay for diet will follow clinically (4) Sepsis Jamin Lynch May 19, 2018 15:14
--- NOTE | 2018-05-19 15:32 | NUR ---
PATIENT CONFUSED AND DISORIENTED.. STATED DOSE NOT WANT TO LEAVE FAMILY AT BEDSIDE CALL LIGHT
--- NOTE | 2018-05-19 15:39 | NUR ---
*-* INSURANCE *-* REVIEWS HAVE BEEN FAXED TO: YENIFER LAUGHLIN PLEASE FAX THE REVIEW/CLINICAL NO MOLASSES COLORING OPERATOR ASSIGNED AT THIS TIME P- [phone] F- [phone]
--- NOTE | 2018-05-19 15:45 | Infectious Diseases Prog Note ---
Assessment/Plan Assessment/Plan Assessment: Sepsis; improving- likely due to probable acute acalculous cholecystitis Fever , recurrent- probably due to drug induced hepatitis- now resovled ?PNA -CXR: Mildly increased interstitial markings. This is nonspecific and cannot exclude a mild bronchitis or interstitial pneumonitis. No focal consolidation. -wound cx craniotomy incision: MSSA (wound doesnt appaer infected) -bcx Neg -influenza sc neg Mild leukocytosis,recurrent; resolved Elevated LFTs, improving (probably due to both cholecystitis and toxic phenytoin levels); Elev alk and Leno )ALP >> AST, ALT); worsening- -05/05 SP Liver biopsy: verbal report drug induced. -HIDA scan: Poor hepatic tracer uptake, no biliary excretion. Findings most likely represents severe hepatocellular disease. Findings are nondiagnostic as regards cystic duct or common bile duct patency -MRCP:No definite gallstones. However, there is gallbladder wall edema and pericholecystic fluid. Could indicate acalculous acute cholecystitis or cholecystitis due to an occult calculus. Alternatively, this could represent reactive changes secondary to adjacent hepatocellular inflammation. Consider hepatobiliary nuclear scan if there is high clinical suspicion for acute cholecystitis. Negative for biliary ductal dilatation. Periportal edema. This can be seen acute hepatitis or right heart failure, among other possibilities -Abd US: No acute findings. 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 Please correlate with the surgical history. Some enhancement of the dura along the anterior interhemispheric fissure and within the surgical bed is not unexpected given the recent surgery. However, the possibility of residual neoplasm is not excludable. There are no reference studies to compare to the preoperative MRI available. Other notable postsurgical finding includes a small fluid collection within the surgical bed deep to the bifrontal craniotomy flap and mild edema within the frontal lobes -CT brain wo: Postsurgical changes associated with relatively recent bifrontal craniotomy likely resection of a mass in the area of the interhemispheric fissure. 6 mm thick mixed attenuation extra-axial blood noted within the surgical bed. Please correlate with the operative report and comparison with prior studies is strongly recommended. -ESR 42, CRP 16.2 -HIV ag/ab neg MICHELLE (supratherapuetic vanco levels) Recent Brain tumor removal (1 month ago) seizure disorder GERD Tobacco use Drug rash- likely 2ry to Phenytoin Plan: -Given drug induced liver damage on pathology - will do an antibiotic free period to evaluate if any of these are a potential culprit. -05/09 SP Meropenem #9, Micafungin #2 -/ SP IV Vancomycin #7 -/4 SP Cefepime #6 -Will hold on LP for now as an alternative source of sepsis is considered -Monitor CBC/CMP, temperatures -GI, Sx f/u: ; ?cholecystostomy -?Transfer to [address] [place] [address] with liver service (ie transplant service)- ALP and Tbili continues to worsened to toxic levels -Nuero fu: holding Phenytoin (toxic levels; also probable drug induced hypersensitize syndrome as had rash, eosinophilia and hepatoxicity) Discussed withRN Subjective Allergies: Coded Allergies: GADOBUTROL (Verified Allergy, Intermediate, 04/30/18) PHENYTOIN (Verified Allergy, Unknown, 05/03/18) Drug hypersensitivity syndrome; hepatotoxicity Uncoded Allergies: CONTRAST (Allergy, Mild, Rash, 05/03/18) questionable if it was due to contrast; patient at the time (Mar-April 2018) also had dilantin reaction (probably rash was due to dilantin) Subjective afebrile mild leukocytosis ALP and Tbili continues to worsen, now >2000 and 20, respectively AST and ALT worsening off abx awaiting transfer to [address] [place] [address] Objective Vital Signs Last 24 Hour Vital Signs Date Time Temp Pulse Resp B/P (MAP) Pulse Ox O2 Delivery O2 Flow Rate FiO2 05/19/18 12:00 97.6 90 17 112/70 (84) 98 05/19/18 09:00 Room Air Room Air 05/19/18 08:00 97.8 100 110/62 (78) 05/19/18 04:00 98.5 88 18 109/69 (82) 100 05/19/18 00:00 97.9 85 18 108/75 (86) 100 05/18/18 21:27 Room Air Room Air 05/18/18 20:13 98.7 88 18 107/72 (84) 99 05/18/18 16:00 98.2 85 17 112/69 (83) 97 Height (Feet): 5 Height (Inches): 11.00 Weight (Pounds): 151 Objective HEAD: craniotomy scar with some superficial ulceration on R left side- no signs of infection GENERAL: Anxious in bed, oriented x2, in no acute distress. CARDIOVASCULAR: No murmur. LUNGS: Distant and clear. ABDOMEN: Bowel sounds positive. Nontender. Nondistended. EXTREMITIES: No cyanosis, clubbing, or edema. NEUROLOGIC: The patient moves all extremities. Slight weakness in extremities. Skin: maculopapular rash in torso, arms Laboratory Tests Test 05/19/18 05:35 White Blood Count 11.4 K/UL (4.8-10.8) H Red Blood Count 2.74 M/UL (4.70-6.10) L Hemoglobin 8.6 G/DL (14.2-18.0) L Hematocrit 26.3 % (42.0-52.0) L Mean Corpuscular Volume 96 FL (80-99) Mean Corpuscular Hemoglobin 31.3 PG (27.0-31.0) H Mean Corpuscular Hemoglobin Concent 32.6 G/DL (32.0-36.0) Red Cell Distribution Width 16.1 % (11.6-14.8) H Platelet Count 830 K/UL (150-450) H Mean Platelet Volume 5.4 FL (6.5-10.1) L Neutrophils (%) (Auto) % (45.0-75.0) Lymphocytes (%) (Auto) % (20.0-45.0) Monocytes (%) (Auto) % (1.0-10.0) Eosinophils (%) (Auto) % (0.0-3.0) Basophils (%) (Auto) % (0.0-2.0) Differential Total Cells Counted 100 Neutrophils % (Manual) 55 % (45-75) Lymphocytes % (Manual) 17 % (20-45) L Monocytes % (Manual) 13 % (1-10) H Eosinophils % (Manual) 12 % (0-3) H Basophils % (Manual) 3 % (0-2) H Band Neutrophils 0 % (0-8) Platelet Estimate Increased H Platelet Morphology Normal Hypochromasia 2+ Anisocytosis 1+ Sodium Level 130 MMOL/L (136-145) L Potassium Level 4.3 MMOL/L (3.5-5.1) Chloride Level 97 MMOL/L (98-107) L Carbon Dioxide Level 23 MMOL/L (21-32) Anion Gap 10 mmol/L (5-15) Blood Urea Nitrogen 12 mg/dL (7-18) Creatinine 1.5 MG/DL (0.55-1.30) H Estimat Glomerular Filtration Rate 58.4 mL/min (>60) Glucose Level 95 MG/DL (74-106) Calcium Level 9.4 MG/DL (8.5-10.1) Total Bilirubin 20.2 MG/DL (0.2-1.0) H Direct Bilirubin 18.7 MG/DL (0.0-0.3) H Aspartate Amino Transf (AST/SGOT) 298 U/L (15-37) H Alanine Aminotransferase (ALT/SGPT) 326 U/L (12-78) H Alkaline Phosphatase > 2000 U/L (46-116) H Total Protein 6.3 G/DL (6.4-8.2) L Albumin 2.1 G/DL (3.4-5.0) L Globulin 4.2 g/dL Albumin/Globulin Ratio 0.5 (1.0-2.7) L Current Medications Medications (Trade) Dose Ordered Sig/Obdulia Route PRN Reason Start Time Stop Time Status Last Admin Dose Admin Al Hydroxide/Mg Hydroxide (Mylanta II) 30 ml Q6H PRN ORAL dyspepsia 04/24/18 17:15 05/24/18 17:14 Cetylpyridinium Chloride (Cepacol) 1 lozg Q2H PRN JORGE LUIS Discomfort from hiccups 05/09/18 15:45 06/08/18 15:44 05/11/18 09:13 Dextrose (Dextrose 50%) 25 ml Q30M PRN IV Hypoglycemia 04/24/18 17:15 05/24/18 17:14 Dextrose (Dextrose 50%) 50 ml Q30M PRN IV Hypoglycemia 04/24/18 17:15 05/24/18 17:14 Diphenhydramine HCl (Benadryl) 25 mg Q6H PRN IVP Itching 04/26/18 16:30 05/26/18 16:29 05/02/18 23:53 Gabapentin (Neurontin) 600 mg THREE TIMES A DAY ORAL 05/14/18 18:00 06/13/18 17:59 05/19/18 13:00 Heparin Sodium (Porcine) (Heparin 5000 units/ml) 5,000 units EVERY 12 HOURS SUBQ 04/24/18 21:00 05/24/18 20:59 05/19/18 09:03 Lactulose (Cephulac) 30 gm THREE TIMES A DAY ORAL 05/17/18 13:00 05/29/18 13:29 05/19/18 13:01 Ondansetron HCl (Zofran) 4 mg Q6H PRN IVP Nausea & Vomiting 04/24/18 17:15 05/24/18 17:14 05/10/18 12:29 Oxycodone HCl (Roxicodone) 5 mg Q4H PRN ORAL severe pain 05/14/18 11:16 05/21/18 14:14 05/19/18 13:00 Polyethylene Glycol (Miralax) 17 gm HSPRN PRN ORAL Constipation 04/24/18 17:15 05/24/18 17:14 Kelsie Ibarra M.D. May 19, 2018 15:45
[2018-05-19 16:00] VITALS: BP 115/74
--- NOTE | 2018-05-19 17:49 | NUR ---
PATIENT REMOVED I.V. HEP LOCK REFUSED TO REINSERT NEW I.V. HEP LOCK PATIENT FAMILY STATED WILL BE LEAVING [facility].. NOTED... PER FAMILY
--- NOTE | 2018-05-19 19:40 | NUR ---
NURSE NOTES: RECEIVED REPORT FROM OUTGOING NURSE, JENNY ADEN, THAT PATIENT WAS LEAVING [facility] [place] AMA, PATIENT REMOVED IV, NO BLEEDING NOTED FROM SITE; UPON APPROACHING ROOM, MULTIPLE FAMILY MEMBERS AT BEDSIDE; PATIENT DIRECTED ME TO SISTER, AYSE ASTUDILLO, TO SIGN AMA FORM. ASSISTED PATIENT TO FAMILY VEHICLE VIA WHEELCHAIR, TOLERATED WELL, NO SIGNS AND SYMPTOMS OF DISTRESS.
--- NOTE | 2018-05-22 08:12 | Discharge Summary ---
Discharge Summary Discharge Summary _ DATE OF ADMISSION: 04/24/2018 DATE OF DISCHARGE: 05/19/2018 Patient left AGAINST MEDICAL ADVICE REASON FOR ADMISSION: 57 years old male resident of [facility], with past medical history of benign neoplasm of meninges, status post removal of brain tumor at 2018 at [facility], seizure disorder, headaches from childhood, presented to emergency department with complaint of the headache. He reported frontal forehead discomfort. He denied chest pain and shortness of breath. He denied vomiting. He denied back or flank pain. He denied neck pain and photophobia. Upon evaluation vital signs were stable. No leukocytosis, stable hemoglobin and hematocrit. Stable electrolytes and renal parameters. Glucose 98. Elevated liver enzymes : AST 101 , ALT 150. Elevated alkaline phosphatase 707. Troponin negative, EKG revealed sinus rhythm, no acute ischemic changes. CT of the head demonstrated postsurgical changes associated with relatively recent bifrontal craniotomy, likely resection of a mass in the area of the interhemispheric fissure. 6 mm thick mixed attenuation extra-axial blood noted within the surgical bed. Abdominal ultrasound revealed no acute findings. Patient was admitted for further management CONSULTANTS: neurologist Dr. Parada pulmonary Dr. Armas ID specialist Dr. Cohen GI specialist Dr. Kimball supervisor motor vehicle assembly entertainment centre manager/oncologist surgery Dr. Lynch pain specialist Dr. Delarosa [facility] COURSE: Patient admitted. Neurologist followed. Pain management was addressed. Patient was started on DVT prophylaxis. LFT were closely followed. Per neurologist, patient had diffuse possibly multifocal metabolic encephalopathy. Patient had a long history of headaches since childhood , and it was difficult to say if current symptoms were related to headache from the surgery. There was a concern about Staph aureus infection, since patient had a scalp wound infected with Staph aureus. Serum ammonia elevated at 48. Patient was on lactulose and Xifaxan. ABG was stable on room air. MRI of the brain revealed evidence of recent resection of a mass centered about the inferior aspect of the anterior interhemispheric fissure, a typical location for meningioma. Some enhancement of the dura along the anterior interhemispheric fissure and within the surgical bed was not unexpected given the recent surgery. However, the possibility of residual neoplasm was not excludable. There were no reference studies to compare to the preoperative MRI available. Other notable postsurgical findings included a small fluid collection within the surgical bed deep to the bifrontal craniotomy flap and mild edema within the frontal lobes. EEG demonstrated encephalopathy of moderate degree. Bilateral frontotemporal dysfunction. GI specialist closely followed. Hepatitis panel was negative. HIV test was nonreactive. LFT were closely monitored and initially showed trend down, but then demonstrated sharp increase in AST and ALT along with bilirubin. Ammonia level was monitored. As mentioned above, patient was on lactulose and Xifaxan. Lipase was stable. Abdominal ultrasound was negative. MRCP was negative for common bile duct dilatation, but showed possible acute acalculous cholecystitis or cholecystitis due to occult calculus. Noted periportal edema , which could be seen in acute hepatitis or right heart failure. HIDA scan showed poor hepatic tracer uptake, no biliary excretion. Findings most likely represented severe hepatocellular disease. Findings were nondiagnostic in regards to cystic duct or common bile duct patency. AMA, REHAN, and SMA were all negative. Stool for occult blood was negative. Keppra level was stable. Dilantin toxicity noted. Patient was off Dilantin. Patient undergone ultrasound-guided liver biopsy on 05/05. Pathology report revealed findings consistent with drug-induced hepatitis. Negative for malignancy and cirrhosis. MELD score 28. Patient required tertiary care for liver transplant. All potential hepatotoxic medications were discontinued. Bowel regimen was continued. Hemoglobin and hematocrit were closely monitored with goal to keep hemoglobin above 7. Anemia workup was consistent with anemia of chronic disease. Low folate noted as well patient started on folate replacement. Prior to signing AMA, hemoglobin 8.6, hematocrit 26.3. Stool for occult blood was negative. Seizure precautions were maintained. Dilantin stopped, as mentioned aove, and initially Keppra continued . Later Keppra stopped as well. No evidence of seizure activity while in the hospital. ID specialist followed. As mentioned above scalp wound revealed growth of Staph aureus. Blood cultures done on few different dates, were negative. Rapid influenza screen test was negative. Urine culture was negative. Per ID specialist, patient likely had sepsis due to probable acute acalculous cholecystitis. Fever recurrent and possibly due to drug-induced hepatitis, resolved. Mild leukocytosis resolved. Per ID specialist, patient may m possibly had pneumonia. Supplemental oxygen provided as needed to keep pulse oximetry above 92%, pulmonary toilet was on standby as needed. Patient was followed -up with chest x-ray. Mercerizing Range Controller followed. Antibiotic regimen optimized as per ID recommendations, but then all antibiotics were discontinued, and patient was monitored off antibiotics. General surgeon seen the patient for possible acute acalculous cholecystitis. Leukocytosis resolved. Surgeon recommended to follow-up with LFT await transfer to tertiary center for liver transplant and observe clinically. Sheet Metal Duct Worker Supervisor followed for acute kidney injury. Renal parameters and electrolytes were closely monitored. Urine studies done. Nephrotoxins avoided as possible. Al IV piggybag medication where mixed with normal saline. Prior to signing AGAINST MEDICAL ADVICE sodium 130 creatinine 1.5, BUN 12. Pain management was provided as per pain specialist recommendation. Given no improvement and acute liver toxicity, patient required transfer for liver transplant center. manager of recruiting team was working on transfer no tertiary center. However, patient and family decided to sign AGAINST MEDICAL ADVICE The risks and consequences of signing AGAINST MEDICAL ADVICE were discussed with patient in detail. Patient verbalized understanding, nevertheless signed AMA form and left. FINAL DIAGNOSES: Sepsis likely due to probable acute acalculous cholecystitis Fever recurrent -resolved Possible pneumonia Drug-induced hepatotoxicity probably secondary to Dilantin Probably DRESS syndrome likely related to Dilantin Transaminitis Phenytoin toxicity Diffuse multifocal metabolic encephalopathy Hepatic encephalopathy Acute kidney injury Brain tumor History of craniotomy Headaches Anemia Malnutrition Elevated alkaline phosphatase Seizure disorder Hypovolemic hyponatremia I have been assigned to dictate discharge summary for this account. I was not involved in the patient's management. Lula Sanchez NP May 22, 2018 08:11
== END 2018-05-19 19:30 | disposition left against medical advice (07) | DRG 720 ==
LOC: EDBD 11:31 → EDUNIT# 11:31 → EMR 13:00 → 4E 13:10 → EDBEDREQ 13:32 → 4E 04-25 17:41
PROC: 0FB23ZX Excision of Left Lobe Liver, Percutaneous Approach, Diagnostic (ICD-10-PCS; principal; 2018-05-05)
DX: A41.9 Sepsis, unspecified organism (principal); G93.41 Metabolic encephalopathy; N17.9 Acute kidney failure, unspecified; E46 Unspecified protein-calorie malnutrition; K81.0 Acute cholecystitis; K71.10 Toxic liver disease with hepatic necrosis, without coma; J18.9 Pneumonia, unspecified organism; K71.2 Toxic liver disease with acute hepatitis; T42.0X5A Adverse effect of hydantoin derivatives, initial encounter; Y92.9 Unspecified place or not applicable; I10 Essential (primary) hypertension; Z72.0 Tobacco use; L27.0 Generalized skin eruption due to drugs and medicaments taken internally; K21.9 Gastro-esophageal reflux disease without esophagitis; E87.1 Hypo-osmolality and hyponatremia; E87.6 Hypokalemia; R74.8 Abnormal levels of other serum enzymes; R74.0 Nonspecific elevation of levels of transaminase and lactic acid dehydrogenase [LDH]; Z68.21 Body mass index [BMI] 21.0-21.9, adult; D64.9 Anemia, unspecified; R06.6 Hiccough
CPT/HCPCS: 36415; 36600; 70450; 70553; 71045; 73502; 74181; 76700; 76942; 78266; 80048; 80053; 80076; 80185; 80202; 80299; 81003; 82043; 82044; 82140; 82150; 82248; 82270; 82378; 82550; 82553; 82570; 82607; 82728; 82746; 82803; 83540; 83550; 83690; 84300; 84439; 84443; 84484; 85007; 85025; 85044; 85610; 85651; 85730; 86039; 86140; 86235; 86256; 86703; 86705; 86709; 86710; 86803; 87040; 87070; 87086; 87181; 87205; 87340; 89050; 93005; 95819; 96361; 96374; 96375; 96376; 97803; 99285; A9585; J2405; J2765; J8499